=== PATIENT | female | born 2000 | race Two or more races ===

== ENCOUNTER 2023-06-13 22:16 | Emergency (ER) | payer SELFPAY ==
[2023-06-13 22:21] VITALS: BP 135/84; PULSE 76; TEMP 36.7; O2SAT 99; BMI 30.9
--- NOTE | 2023-06-13 22:43 | ED.GENADUL1 ---
HPI HPI - General Adult General Chief complaint: OB/Uterine Contractions Stated complaint: 6WEEKS , POSS MISCARRIAGE Time Seen by Provider: 06/13/23 22:36 Source: patient Mode of arrival: walk-in History of Present Illness HPI narrative: patient presents complaining that she is but believes she is going to have a miscarriage states LMP late mar. state she did a home test that was positive. She redid the test and now it is neg. She has some nausea. No vaginal bleeding. no fever or urinary symptoms Related Data Allergies Allergy/AdvReac Type Severity Reaction Status Date / Time No Known Drug Allergies Allergy Verified 06/13/23 22:24 Opioid HPI Opioid Management Most Recent Opioid Data: No Data to Display Review of Systems ROS Status of ROS 10 or more systems reviewed and unremarkable except as noted in history and below Exam Constitutional Vital Signs, click to edit/add: Last Vital Signs Temp 98.1 F 06/13/23 22:21 Pulse 76 06/13/23 22:21 Resp 16 06/13/23 22:21 BP 135/84 06/13/23 22:21 Pulse Ox 99 06/13/23 22:21 O2 Del Method Room Air 06/13/23 22:30 Common normals: no apparent distress, average body habitus, oriented x3, no limitations, healthy appearing, alert and well nourished [facility] Common normals: normocephalic and head/scalp atraumatic Eye Common normals: PERRL and EOMs intact bilaterally Respiratory Common normals: normal respiratory effort, no retractions, no use of accessory muscles and clear to auscultation bilaterally Cardio Common normals: regular rate, regular rhythm, S1 normal heart sound and S2 normal heart sound GI Common normals: Normal to inspection, nondistended, normoactive bowel sounds present, soft to palpation and non-tender Extremity Common normals: normal to inspection and full ROM Neuro Common normals: oriented x3, CN's II-XII intact bilaterally and moves all extremities Psych Appearance: grossly normal Course Vital Signs Vital signs: Vital Signs Temperature 98.1 F 06/13/23 22:21 Pulse Rate 76 06/13/23 22:21 Respiratory Rate 16 06/13/23 22:21 Blood Pressure 135/84 06/13/23 22:21 Pulse Oximetry 99 06/13/23 22:21 Oxygen Delivery Method Room Air 06/13/23 22:21 Temperature 98.1 F 06/13/23 22:21 Pulse Rate 76 06/13/23 22:21 Respiratory Rate 16 06/13/23 22:21 Blood Pressure 135/84 06/13/23 22:21 Pulse Oximetry 99 06/13/23 22:21 Oxygen Delivery Method Room Air 06/13/23 22:30 Medical Decision Making MDM Narrative Medical decision making narrative: patient presents concerned she may be about to have a miscarriage. She did one home test a few weeks ago that was positive and a repeat test today neg. Denies vaginal bleeding. LMP late mar. No symptoms now. Urine preg here neg and UA with evidence of dehydration. Patient informed of the neg test and discharged home. Advised to increase fluid intake Lab Data Labs: Lab Results 06/13/23 Range/Units 22:26 Urine Color Yellow (YELLOW) Urine Clarity Clear (CLEAR) Urine pH 5.5 (5.0-9.0) Ur Specific [place] >=1.030 A (1.005-1.025) Urine Protein Negative (NEG/TRACE) mg/dL Urine Glucose (UA) Negative (NEGATIVE) mg/dL Urine Ketones Trace A (NEGATIVE) mg/dL Urine Occult Blood Trace-i (NEGATIVE) Urine Nitrite Negative (NEGATIVE) Urine Bilirubin Negative (NEGATIVE) Urine Urobilinogen 1.0 (0.2-1.0) EU/dL Ur Leukocyte Esterase Negative (NEGATIVE) Urine RBC 0-2 (0-2) #/HPF Urine WBC 2-5 A (NONE SEEN) #/HPF Ur Squamous Epith Cells Few A (NONE/RARE) #/LPF Urine Crystals None seen (None Seen) #/HPF Urine Bacteria Trace A (NONE SEEN) #/HPF Urine Casts None seen (NONE SEEN) #/LPF Urine Mucus Moderate A (NONE SEEN) Ur Culture Indicated? No Urine HCG, Qual Negative (NEGATIVE) Discharge Plan Discharge Stand Alone Forms: Portal Instructions Chief Complaint: OB/Uterine Contractions Clinical Impression: Dehydration Patient Disposition: Home, Self-Care Print Language: [place] Instructions: Dehydration (ED) Additional Instructions: drink plenty of fluids and follow up with your doctor for recheck Referrals: Physician,Non-Staff, MD [Primary Care Provider] - 1 week
[2023-06-13 22:54] LABS: Bilirubin Urine NEGATIVE (NEGATIVE); Blood Urine TRACE-I (NEGATIVE); Clarity Urine CLEAR (CLEAR); Color Urine YELLOW (YELLOW); Glucose Urine UA NEGATIVE (NEGATIVE); Ketones Urine TRACE mg/dL (NEGATIVE); Leukocyte Esterase Urine NEGATIVE (NEGATIVE); Nitrite Urine NEGATIVE (NEGATIVE); Protein Urine NEGATIVE (NEG/TRACE); Specific Gravity Urine >=1.030 (1.005-1.025); pH Urine 5.5 (5.0-9.0)
[2023-06-13 22:55] LABS: HCG Qualitative Urine* NEGATIVE (NEGATIVE); Urine Microscopic Indicated YES
[2023-06-13 23:03] LABS: Bacteria Urine TRACE #/HPF (NONE SEEN); RBC Urine 0-2 #/HPF (0-2)
[2023-06-13 23:04] LABS: Cast Seen? NONE SEEN #/LPF (NONE SEEN); Crystals Seen? None Seen #/HPF (None Seen); Mucus Urine MODERATE (NONE SEEN); Squamous Epithelial Cell Urine FEW #/LPF (NONE/RARE); Urine Culture Indicated NO
== END 2023-06-13 23:33 | disposition home or self-care (01) ==
PROVIDERS: Emergency Provider Internal Medicine
DX: E86.0 Dehydration (principal)
CPT/HCPCS: 81001; 84703; 99283

== ENCOUNTER 2023-06-14 13:05 | Outpatient (OUT) | payer SELFPAY ==
[2023-06-14 13:51] LABS: HCG Quantitative 2 mIU/mL
== END 2023-06-14 13:06 | disposition home or self-care (01) ==
PROVIDERS: Visit Provider Obstetrics & Gynecology
DX: N92.6 Irregular menstruation, unspecified (principal); O20.0 Threatened abortion
CPT/HCPCS: 36415; 84702

== ENCOUNTER 2023-08-19 12:34 | Outpatient (RCR) | payer BC, SELFPAY ==
[2023-08-19 14:07] LABS: HCG Quantitative 23 mIU/mL
[2023-08-20 13:16] LABS: HCG Quantitative 43 mIU/mL
== END 2023-09-11 23:59 | disposition home or self-care (01) ==
LOC: LAB 12:34
PROVIDERS: Visit Provider Obstetrics & Gynecology
DX: N92.6 Irregular menstruation, unspecified (principal); Z87.59 Personal history of other complications of pregnancy, childbirth and the puerperium
CPT/HCPCS: 36415; 84702

== ENCOUNTER 2023-08-23 12:46 | Outpatient (RCR) | payer BC, SELFPAY ==
--- OUTSIDE RECORDS SUMMARY | 2023-08-23 13:08 | XMS_ITS | CCD ---
Author Organization [facility] Team Providers Care Currency Examiner Name Role Phone NONE, XXXX Primary Care Physician Unavailab thee ROSALES, DR PLASENCIA Attending Unavailable BOBBY, DR PLASENCIA Consulting Unavailable DR ERINN ROSALES Admitting Unavailable JOSE, DR MACARENA Kim Consulting Unavailable ERINN ROSALES Attending Unavailable Unavailable Primary Care Provider UnavailELVA Caldera Attending Unavailable Love Palmer Attending Unavailable Love Palmer Admitting Unavailable Medications Current Medications Medication Drug Class(es) Dates Sig (Normalized) Sig (Original) citalopram 20 mg oral tablet (3 sources) Serotonin Reuptake Inhibitor Start: 03-12-2019 take 1 tablet by mouth once daily citalopram 20 mg Tab TAKE 1 TABLET BY MOUTH EVERY DAY Start Date: 03/12/19 Status: Ordered 21 day ethinyl estradiol 0.453355 mg/hr / etonogestrel 0.005 mg/hr vaginal system (2 sources) Progestin, Estrogen Start: 03-12-2019 Nuvaring 0.015 mg-0.120 mg Ring INSERT 1 RING VAGINALLY DIRECTED. REMOVE AFTER 3 WEEKS & WAIT 7 DAYS BEFORE INSERTING A NEW RING Start Date: 03/12/19 Status: Ordered ibuprofen 400 mg oral tablet (3 sources) Nonsteroidal Anti-inflammatory Drug Start: 07-26-2015 take 1 tablet by mouth every six hours as needed for pain ibuprofen 400 mg Tab 400 mg = 1 tab(s), Oral, q6hr, PRN as needed for pain, # 15 tab(s), Refills(s) 0 Start Date: 07/26/15 Status: Ordered naproxen 250 mg oral tablet (1 source) Nonsteroidal Anti-inflammatory Drug Start: 07-18-2023 End: 07-28-2023 take 2 tablets by mouth twice daily at mealtime naproxen (NAPROSYN) 250 MG tablet Take 2 tablets by mouth 2 times daily (with meals) for 10 days 40 tablet 0 07/18/2023 07/28/2023 Active Nuvaring 0.015 mg-0.120 mg Ring (1 source) Start: 03-12-2019 Nuvaring 0.015 mg-0.120 mg Ring INSERT 1 RING VAGINALLY DIRECTED. REMOVE AFTER 3 WEEKS & WAIT 7 DAYS BEFORE INSERTING A NEW RING Start Date: 03/12/19 Status: Ordered predniSONE 20 mg oral tablet (1 source) Start: 07-07-2022 End: 07-12-2022 take 2 tablets by mouth once daily predniSONE 20 mg Tab 40 mg = 2 tab(s), Oral, Daily, X 5 day(s), # 10 tab(s), Refills(s) 0, Pharmacy: [facility]/pharmacy #[id number], 160, cm, 07/07/22 9:38:00 EDT, Height/Length Dosing, 90, kg, 07/07/22 9:38:00 EDT, Weight Dosing Start Date: 07/07/22 Stop Date: 07/12/22 Status: Ordered valACYclovir 500 mg oral tablet (4 sources) Herpesvirus Nucleoside Analog DNA Polymerase Inhibitor, Herpes Simplex Virus Nucleoside Analog DNA Polymerase Inhibitor, Herpes Zoster Virus Nucleoside Analog DNA Polymerase Inhibitor Start: 03-12-2019 take 1 tablet by mouth once daily valacyclovir 500 mg Tab TAKE 1 TABLET BY MOUTH EVERY DAY Start Date: 03/12/19 Status: Ordered Completed/Discontinued Medications Medication Drug Class(es) Dates Sig (Normalized) Sig (Original) 1 ml ketorolac tromethamine 30 mg/ml cartridge (1 source) Nonsteroidal Anti-inflammatory Drug, Cyclooxygenase Inhibitor Start: 07-18-2023 End: 07-18-2023 ketorolac (TORADOL) injection 30 mg Problems Problem Classification Problem Date Documented Date Episodic/Chronic Anxiety disorders (3 sources) Anxiety 03-12-2019 Chronic Mood disorders (3 sources) Depression 05-25-2013 Chronic Other connective tissue disease (1 source) Enthesopathy; Translations: [Other enthesopathies, not elsewhere classified] Onset: 07-07-2022 Episodic Other connective tissue disease (1 source) Tenosynovitis of left radial styloid; Translations: [Radial styloid tenosynovitis [de Quervain]] 07-18-2023 Episodic Other connective tissue disease (1 source) Radial styloid tenosynovitis [de Quervain]; Translations: [Radial styloid tenosynovitis (de quervain)] Onset: 07-18-2023 Episodic Other endocrine disorders (4 sources) Polycystic ovarian syndrome; Translations: [POLYCYSTIC OVARIAN SYNDROME] Onset: 07-30-2021 Chronic Other infections; including parasitic (3 sources) H/O: viral illness 03-12-2019 Episodic Other nutritional; endocrine; and metabolic disorders (1 source) Obese class II; Translations: [Body mass index (BMI) 35.0-35.9, adult] Onset: 07-07-2022 Chronic Other screening for suspected conditions (not mental disorders or infectious disease) (3 sources) No current problems or disability 08-30-2013 Episodic Otitis media and related conditions (3 sources) Otitis media 03-12-2019 Episodic Results Test Name Value Interpretation Reference Range Facility PAP [id number] 07-19-2023 Cytology report Cyto stain Doc (Cvx/Vag) Note Invalid Interpretation Code [facility] Comment on above: Result Comment: TEST S RESULT FLAG UNITS REF RANGE LAB - Clinician Provided Cytology Information Source.............Endocervix No. of containers..01 ThinPrep Vial DIAGNOSIS: 01 NEGATIVE FOR INTRAEPITHELIAL LESION OR MALIGNANCY. Specimen adequacy: 01 Satisfactory for evaluation. Endocervical and/or squamous metaplastic cells (endocervical component) are present. Performed by: 01 Puneet Elise Plumber Cub (ASCP) . 01 Note: Note 01 The Pap smear is a screening test designed to aid in the detection of premalignant and malignant conditions of the uterine cervix. It is not a diagnostic procedure and should not be used as the sole means of detecting cervical cancer. Both false-positive and false-negative reports do occur. Test Methodology: Note 01 The Netechy(R) Mounting Inspector was unable to read this specimen. Therefore a manual review was performed. . 01 The HPV DNA reflex criteria were not met with this specimen result therefore, no HPV testing was performed. - FLAG LEGEND: L-Low Normal,H-High Normal,LL-Alert Low,HH-Alert High <-Panic Low,>-Panic High,A-Abnormal,AA-Critical Abnormal - Performed at: [facility] [id number] Luz Marina Swann MD, Performed at: [facility] [id number] MD Shree Raza Performed By: #### 3 [id number] #### [facility] [address] [place] [address] PAP [id number] 07-16-2023 Collection Technique BRUSH-SPATULA Normal [facility] Comment on above: Performed By: #### 3 [id number] #### [facility] [address] [place] [address] Gynecological Body Site ENDOCERVIX Normal [facility] Comment on above: Performed By: #### 3 [id number] #### [facility] [address] [place] [address] Physician Orderon 07-14-2023 Physician Order [id number] Normal [facility] DHEA SERUMon 08-11-2021 Dehydroepiandrosterone (DHEA) 339 ng/dL Normal 31-701 [facility] Comment on above: Result Comment: Age 1 - 5 years 0 - 67 6 - 7 years 0 - 110 8 - 10 years 0 - 185 11 - 12 years 0 - 201 13 - 14 years 0 - 318 15 - 16 years 39 - 481 17 - 19 years 40 - 491 >19 years 31 - 701 Performed By: #### D ZACH. #### [facility] [address] [place] [address] Dr. Austen Hernadez DHEA-SULFATEon 08-01-2021 DHEA-Sulfate 247.0 ug/dL Normal 110.0-431.7 [facility] Comment on above: Performed By: #### D DEANA #### [facility] [address] [place] [address] Dr. Austen Hernadez FSHon 08-01-2021 FSH 1.6 mIU/mL Normal [facility] Comment on above: Result Comment: Adul t Female: Follicular phase 3.5 - 12.5 Ovulation phase 4.7 - 21.5 Luteal phase 1.7 - 7.7 Postmenopausal 25.8 - 134.8 Performed By: #### L BCFSH #### [facility] [address] [place] [address] Dr. Austen Hernadez LUTEINIZING HORMONE (LH)on 0 - LH 2.6 mIU/mL Normal [facility] Comment on above: Result Comment: Adul t Female: Follicular phase 2.4 - 12.6 Ovulation phase 14.0 - 95.6 Luteal phase 1.0 - 11.4 Postmenopausal 7.7 - 58.5 Performed By: #### L BCLH #### [facility] [address] [place] [address] Dr. Austen Hernadez CBC AUTO DIFFon 07-30-2021 BASO # 0.0 103/ul Normal 0.0-0.1 [facility] Comment on above: Performed By: #### C BC #### [facility] [address] [place] [address] Dr. Austen Hernadez Basophils/100 WBC (Bld) 0.2 % Normal 0.2-2.0 [facility] Comment on above: Performed By: #### C BC #### [facility] [address] [place] [address] Dr. Austen Hernadez EO # 0.1 103/ul Normal 0.0-0.7 [facility] Comment on above: Performed By: #### C BC #### [facility] [address] [place] [address] Dr. Austen Hernadez Eosinophils/100 WBC (Bld) 1.2 % Normal 0.9-7.0 [facility] Comment on above: Performed By: #### C BC #### [facility] [address] [place] [address] Dr. Austen Hernadez Erythrocyte distribution width (RBC) [Ratio] 12.1 % Normal 11.0-15.0 [facility] Comment on above: Performed By: #### C BC #### [facility] [address] [place] [address] Dr. Austen Hernadez Hematocrit (Bld) [Volume fraction] 40.2 % Normal 36.0-48.0 [facility] Comment on above: Performed By: #### C BC #### [facility] [address] [place] [address] Dr. Austen Hernadez Hemoglobin (Bld) [Mass/Vol] 13.3 g/dL Normal 12.0-16.0 [facility] Comment on above: Performed By: #### C BC #### [facility] [address] [place] [address] Dr. Austen Hernadez IG # 0.04 10e3/ul Critically high 0.00-0.03 [facility] Comment on above: Performed By: #### C BC #### [facility] [address] [place] [address] Dr. Austen Hernadez IG % 0.5 % Normal 0.0-0.5 [facility] Comment on above: Performed By: #### C BC #### [facility] [address] [place] [address] Dr. Austen Hernadez LYMPH # 1.7 103/ul Normal 1.2-3.8 [facility] Comment on above: Performed By: #### C BC #### [facility] [address] [place] [address] Dr. Austen Hernadez Lymphocytes/100 WBC (Bld) 20.1 % Critically low 20.5-6 0.0 [facility] Comment on above: Performed By: #### C BC #### [facility] [address] [place] [address] Dr. Austen Hernadez MANUAL DIFF REQ NO Normal [facility] Comment on above: Performed By: #### C BC #### [facility] [address] [place] [address] Dr. Austen Hernadez MCH (RBC) [Entitic mass] 30.0 pg Normal 26.7-34.0 [facility] Comment on above: Performed By: #### C BC #### [facility] [address] [place] [address] Dr. Austen Hernadez MCHC (RBC) [Mass/Vol] 33.1 g/dL Normal 29.9-35.2 [facility] Comment on above: Performed By: #### C BC #### [facility] [address] [place] [address] Dr. Austen Hernadez MCV (RBC) [Entitic vol] 90.5 fL Normal 81.0-99.0 [facility] Comment on above: Performed By: #### C BC #### [facility] [address] [place] [address] Dr. Austen Hernadez MONO # 0.5 103/ul Normal 0.3-0.8 [facility] Comment on above: Performed By: #### C BC #### [facility] [address] [place] [address] Dr. Austen Hernadez Monocytes/100 WBC (Bld) 5.8 % Normal 1.7-12.0 [facility] Comment on above: Performed By: #### C BC #### [facility] [address] [place] [address] Dr. Austen Hernadez NEUT # 6.2 103/ul Normal 1.4-6.5 [facility] Comment on above: Performed By: #### C BC #### [facility] [address] [place] [address] Dr. Austen Hernadez Neutrophils/100 WBC (Bld) 72.2 % Normal 43.0-75.0 [facility] Comment on above: Performed By: #### C BC #### [facility] [address] [address] [address] Austen Hernadez Platelet mean volume (Bld) [Entitic vol] 8.2 fL Critically low 9.5-13.5 [facility] Comment on above: Performed By: #### C BC #### [facility] [address] [address] [address] Austen Hernadez PLT 350 103/ul Normal 150-450 [facility] Comment on above: Performed By: #### C BC #### [facility] [address] [address] [address] Austen Hernadez RBC 4.44 106/ul Normal 4.20-5.40 [facility] Comment on above: Performed By: #### C BC #### [facility] [address] [place] [address] Dr. Austen Hernadez WBC 8.6 103/ul Normal 4.0-11.0 [facility] Comment on above: Performed By: #### C BC #### [facility] [address] [place] [address] Dr. Austen Hernadez GLYCOHEMOGLOBIN A1Con 2021 ADA RECOMMENDATION SEE BELOW Normal [facility] Comment on above: Result Comment: ADA RECOMMENDED LIMIT 4.0 - 6.0 ADA THERAPEUTIC TARGET < 7.0 ACTION SUGGESTED > 7.0 Performed By: #### A 1C #### [facility] [address] [place] [address] Dr. Austen Hernadez Glucose [Mass/Vol] 108 mg/dL Normal [facility] Comment on above: Performed By: #### A 1C #### [facility] [address] [place] [address] Dr. Austen Hernadez HbA1c (Bld) [Mass fraction] 5.4 % Normal 4.5-6.2 [facility] Comment on above: Performed By: #### A 1C #### [facility] [address] [place] [address] Dr. Austen Hernadez TSHon 07-30-2021 TSH 1.365 uIU/mL Normal 0.358-3.740 [facility] Comment on above: Performed By: #### T #### [facility] [address] [place] [address] Dr. Austen Hernadez TSH RANGE SEE BELOW Normal [facility] Comment on above: Result Comment: <0.3 4 UIU/ml HYPERTHYROID 0.34-5.60 UIU/ml EUTHYROID >5.60 UIU/ml HYPOTHYROID Performed By: #### T #### [facility] [address] [place] [address] Dr. uAsten Hernadez US PELVIS AND TRANSVAGon US PELVIS AND TRANSVAG EXAMINATION: US PELVIS AND TRANSVAG HISTORY: Polycystic ovary syndrome COMPARISON: No relevant comparison available. TECHNIQUE: Transabdominal and transvaginal sonographic examination. FINDINGS: UTERUS: Normal size and appearance. Uterus size: 8.0 x 4.4 x 3.5 cm ENDOMETRIUM: Normal homogeneous appearance. Endometrial thickness: 5 mm RIGHT OVARY: Normal size and appearance. Duplex Doppler demonstrates normal waveform and flow; resistive index 0.62. Ovary size: 3.2 x 1.7 x 1.5 cm LEFT OVARY: Normal size and appearance. Duplex Doppler demonstrates normal waveform and flow; resistive index 0.52. Ovary size: 2.8 x 2.4 x 1.8 cm CUL-DE-SAC: Unremarkable. No significant free fluid. BLADDER: Unremarkable. OTHER: None. IMPRESSION: 1. Normal appearance of ovaries. No findings to suggest polycystic ovarian syndrome. Electronically authenticated by: MACARENA GARCIA Date: 2021-07-30 15:31 Normal [facility] Vital Signs Date Time Vital Sign Value Performing Clinician Facility 07-18-2023 00:06-0400 Body height 160 cm Elva Servin MD Work Phone: [facility] 07-18-2023 00:06-0400 Body mass index (BMI) [Ratio] 30.11 kg/m2 Elva Servin MD Work Phone: [facility] 07-18-2023 00:06-0400 Body temperature 98.29 [degF] Elva Servin MD Work Phone: [facility] 07-18-2023 00:06-0400 Body weight 77.11 kg Elva Servin MD Work Phone: [facility] 07-18-2023 00:06-0400 Diastolic blood pressure 79 mm[Hg] Elva Servin MD Work Phone: [facility] 07-18-2023 00:06-0400 Heart rate 61 /min Elva Servin MD Work Phone: [facility] 07-18-2023 00:06-0400 Respiratory rate 16 /min Elva Servin MD Work Phone: [facility] 07-18-2023 00:06-0400 SaO2% (BldA) [Mass fraction] 96 % Elva Servin MD Work Phone: [facility] 07-18-2023 00:06-0400 Systolic blood pressure 132 mm[Hg] Elva Servin MD Work Phone: [facility] 07-07-2022 09:35-0400 Diastolic blood pressure 60 mm[Hg] Chris Banegas [facility] 07-07-2022 09:35-0400 Heart rate 83 /min Chris Banegas [facility] 07-07-2022 09:35-0400 SaO2% (BldA) [Mass fraction] 97 % Chris Banegas [facility] 07-07-2022 09:35-0400 Systolic blood pressure 100 mm[Hg] Chris Banegas [facility] Encounters Encounter Date Encounter Type Care Provider Facility Start: 07-18-2023 End: 07-18-2023 Emergency department patient visit ELVADAVID SERVIN [facility] Start: 07-18-2023 End: 07-18-2023 Emergency department patient visit Elva Servin MD Work Phone: [facility] ED Comment on above: Mai's tenosy novitis, left (Primary Dx) Start: 07-14-2023 End: 07-15-2023 ambulatory Love Palmer Facility:[facility] Start: 07-14-2023 End: 07-14-2023 Lab Drop off Love Palmer [facility] Start: 06-15-2023 End: 06-15-2023 ambulatory ERINN ROSALES Not Available Start: 07-07-2022 End: 07-07-2022 Patient encounter procedure Chris Banegas [facility] Start: 07-30-2021 End: 07-31-[address] ERINN ROSALES Facility: Start: 07-15-2021 End: 07-15-2021 Lab Drop off Love Palmer [facility] Plan of Treatment Date Care Activity Detail Author Start: 10-13-2023 Influenza vaccination Flu vacc ine (Season Ended) [facility] Start: 2017 DTaP/Tdap/Td vaccine (1 - Tdap) DTaP/Tdap/Td vaccine (1 - Tdap) [facility] Start: 06-10-1999 COVID-19 Vaccine (#1) COVID-19 Vacci ne (#1) [facility] Payers Date Payer Category Payer Unknown [id number] 2023 Unknown 1998 Unknown [id number] 1998 Unknown [id number] 1998 Unknown [id number] 1998 Unknown [id number] 1959 Unknown [id number] Social History Date Type Detail Facility Start: 10-24-2020 End: 07-18-2023 Tobacco smoking status Never smoked tobacco (finding) [facility] Tobacco smoking status Never [facility] Start: 07-01-2012 Sex Assigned At Female F [facility] Start: 07-18-2023 Tobacco use and exposure Smokeless tobacco non-user [facility] Start: 07-18-2023 Alcohol intake Ex-drinker (finding) [facility] Start: 07-01-2012 History of Social function [facility] Start: 1998 Sex Assigned At Not on file B [facility] Functional Status Date Assessment Result Facility 07-07-2022 Functional Status N/A [facility] Hospital Discharge instructions 07-18-2023 Discharge InstructionsAttachments Note Date & Type Note Facility 07-18-2023 Hospital Discharg e instructions Elva Servin MD - 07/18/2023 12:09 AM EDT You were evaluated in the emergency department for having a wrist injury that progressed to difficulty with closing of your hands. After thorough physical evaluation you were discovered to have a tenosynovitis. Whether this is de Quervain's tenosynovitis or pure wrist tenosynovitis that is unclear given the injury pattern however regardless of what it is, the wrist splint in addition with the naproxen should help significantly. Please follow-up with your primary care physician to ensure there is good continuity of care. The following attachments cannot be sent through Care Everywhere.Tenosynovitis: Wrist (Dutch)documented in this encounter [facility] Discharge instructions 07-07-2022 Note Date & Type Note Facility 07-07-2022 Hospital Discharg e instructions Patient Education 07/07/2022 10:03:07 BMI for Adults BMI for Adults What is BMI? Body mass index (BMI) is a number that is calculated from a person's weight and height. BMI can help estimate how much of a person's weight is composed of fat. BMI does not measure body fat directly. Rather, it is an alternative to procedures that directly measure body fat, which can be difficult and expensive. BMI can help identify people who may be at higher risk for certain medical problems. What are BMI measurements used for? BMI is used as a screening tool to identify possible weight problems. It helps determine whether a person is obese, overweight, a healthy weight, or underweight. BMI is useful for: Identifying a weight problem that may be related to a medical condition or may increase the risk for medical problems. Promoting changes, such as changes in diet and exercise, to help reach a healthy weight. BMI screening can be repeated to see if these changes are working. How is BMI calculated? BMI involves measuring your weight in relation to your height. Both height and weight are measured, and the BMI is calculated from those numbers. This can be done either in [place] or metric measurements. Note that charts and online BMI calculators are available to help you find your BMI quickly and easily without having to do these calculations yourself. To calculate your BMI in [place] ([place] measurements: 1.Measure your weight in pounds (lb). 2.Multiply the number of pounds by 703. For example, for a person who weighs 180 lb, multiply that number by 703, which equals 126,540. 3.Measure your height in inches. Then multiply that number by itself to get a measurement called inches squared. For example, for a person who is 70 inches tall, the inches squared measurement is 70 inches x 70 inches, which equals 4,900 inches squared. 4.Divide the total from step 2 (number of lb x 703) by the total from step 3 (inches squared): 126,540 4,900 = 25.8. This is your BMI. To calculate your BMI in metric measurements: 1.Measure your weight in kilograms (kg). 2.Measure your height in meters (m). Then multiply that number by itself to get a measurement called meters squared. For example, for a person who is 1.75 m tall, the meters squared measurement is 1.75 m x 1.75 m, which is equal to 3.1 meters squared. 3.Divide the number of kilograms (your weight) by the meters squared number. In this example: 70 3.1 = 22.6. This is your BMI. What do the results mean? BMI charts are used to identify whether you are underweight, normal weight, overweight, or obese. The following guidelines will be used: Underweight: BMI less than 18.5. Normal weight: BMI between 18.5 and 24.9. Overweight: BMI between 25 and 29.9. Obese: BMI of 30 or above. Keep these notes in mind: Weight includes both fat and muscle, so someone with a muscular build, such as an athlete, may have a BMI that is higher than 24.9. In cases like these, BMI is not an accurate measure of body fat. To determine if excess body fat is the cause of a BMI of 25 or higher, further assessments may need to be done by a health care provider. BMI is usually interpreted in the same way for men and women. Where to find more information For more information about BMI, including tools to quickly calculate your BMI, go to these websites: Centers for Disease Control and Prevention: www.cdc.gov [place] [employer]: www.heart.org National Heart, Lung, and Blood [place]: www.nhlbi.nih.gov Summary Body mass index (BMI) is a number that is calculated from a person's weight and height. BMI may help estimate how much of a person's weight is composed of fat. BMI can help identify those who may be at higher risk for certain medical problems. BMI can be measured using Dutch measurements or metric measurements. BMI charts are used to identify whether you are underweight, normal weight, overweight, or obese. This information is not intended to replace advice given to you by your health care provider. Make sure you discuss any questions you have with your health care provider. Document Revised: 11/21/2019 Document Reviewed: 09/28/2019 [employer] Patient Education 2022 [employer]. 07/07/2022 10:02:02 Tendinitis, [id number] Tendinitis Tendinitis is irritation and swelling (inflammation) of a tendon. A tendon is a cord of tissue that connects muscle to bone. Tendinitis is most common in the shoulder, ankle, elbow, or wrist. What are the causes? Using a tendon or muscle too much (overuse). This is the most common cause. Wear and tear that happens as you age. Injury. Some medical conditions, such as arthritis. Some medicines. What increases the risk? You are more likely to get this condition if you do activities that involve the same movements over and over again (repetitive motions). What are the signs or symptoms? Pain. Tenderness. Mild swelling. Decreased range of motion. How is this treated? This condition is usually treated with RICE therapy. RICE stands for: Rest. Ice. Compression. This means putting pressure on the affected area. Elevation. This means raising the affected area above the level of your heart. Treatment may also include: Medicines for swelling or pain. Exercises or physical therapy to help your tendon move better and get stronger. A brace or splint. A shot (injection) of a type of medicine called corticosteroid. Surgery. This is rarely needed. Follow these instructions at home: If you have a splint or brace that can be taken off: Wear the splint or brace as told by your doctor. Take it off only as told by your doctor. Check the skin around the splint or brace every day. Tell your doctor if you see problems. Loosen the splint or brace if your fingers or toes: ?Tingle. ?Become numb. ?Turn cold and blue. Keep the splint or brace clean. If the splint or brace is not waterproof: ?Do not let it get wet. ?Cover it with a watertight covering when you take a bath or shower, or take it off as told by your doctor. Managing pain, stiffness, and swelling If told, put ice on the affected area. To do this: ?If you have a removable splint or brace, take it off as told by your doctor. ?Put ice in a plastic bag. ?Place a towel between your skin and the bag. ?Leave the ice on for 20 minutes, 2 3 times a day. ?Take off the ice if your skin turns bright red. This is very important. If you cannot feel pain, heat, or cold, you have a greater risk of damage to the area. Move the fingers or toes of the affected arm or leg often, if this applies. If told, raise the affected area above the level of your heart while you are sitting or lying down. If told, put heat on the affected area before you exercise. Use the heat source that your doctor recommends, such as a moist heat pack or a heating pad. ?Place a towel between your skin and the heat source. ?Leave the heat on for 20 30 minutes. ?Take off the heat if your skin turns bright red. This is very important. If you cannot feel pain, heat, or cold, you have a greater risk of getting burned. Activity Rest the affected area as told by your doctor. Ask your doctor when it is safe to drive if you have a splint or brace on any part of your arm or leg. Return to your normal activities when your doctor says that it is safe. Avoid using the affected area while you have symptoms. Do exercises as told by your doctor. General instructions Wear an elastic bandage or pressure (compression) wrap only as told by your doctor. Take [id number] and prescription medicines only as told by your doctor. Keep all follow-up visits. Contact a doctor if: You do not get better. You get new problems, such as numbness in your hands or feet, and you do not know why. Summary Tendinitis is irritation and swelling (inflammation) of a tendon. You are more likely to get this condition if you do activities that involve the same movements over and over again. This condition is usually treated with RICE therapy. RICE stands for rest, ice, compression, and elevate. Avoid using the affected area while you have symptoms. This information is not intended to replace advice given to you by your health care provider. Make sure you discuss any questions you have with your health care provider. Document Revised: 11/05/2021 Document Reviewed: 11/05/2021 [employer] Patient Education 2022 [employer]. Follow Up Care 07/07/2022 09:19:19 With:NONE, XXXX Address: [phone] When: Unknown [facility] Evaluation + Plan note 07-15-2021 Note Date & Type Note Facility 07-15-2021 Evaluation + Plan note Diagnostic Tests PendingChlamydia/Gonococcu s, KESHIA 07/15/21 [facility] Evaluation + Plan note Note Date & Type Note Facility Evaluation + Plan note [facility] Evaluation note Note Date & Type Note Facility Evaluation note Diagnosis De Quervain's tenosynovitis, left- Primary Radial styloid tenosynovitis documented in this encounter [facility] course Narrative Note Date & Type Note Facility Hospital course Narrative No data available for this section [facility] Hospital Discharge instructions Note Date & Type Note Facility Hospital Discharge instructions No data available for this section [facility] Progress note Note Date & Type Note Facility Progress note No data available for this section [facility] Reason for referral (narrative) Note Date & Type Note Facility Reason for referral (narrative) Referred by: Chris Banegas PA-C [facility] Summary Purpose Family History No Family History Records FoundNo Family History Records Found No data available for this section No Family History Records FoundNo Family History Records Found Advance Directives No Advanced Directives Records FoundNo Advanced Directives Records FoundNo Advanced Directives Records FoundNo Advanced Directives Records Found Additional Source Comments INFORMATION SOURCE (unrecogn ized section and content) DATE CREATED AUTHOR [facility]/12/2021 [facility] DATE CREATED AUTHOR AUTHOR'S ORGANIZ ATION 06/16/2023 [facility] EPIC DATE CREATED AUTHOR AUTHOR'S ORGANIZ ATION 07/18/2023 [facility] DATE CREATED AUTHOR AUTHOR'S ORGANIZ ATION 07/20/2023 [facility] Reason for Visit (unrecogniz ed section and content) Reason Comments Wrist Injury Patient arrived to E with complaints of left wrist injury. 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 had issues with her left wrist prior to incident. Ordered Prescriptions (unrec ognized section and content) Prescription Sig Dispensed Refills Start Date End Da te naproxen (NAPROSYN) 250 MG tablet Take 2 tablets by mouth 2 times daily (with meals) for 10 days 40 tablet 0 07/18/2023 07/28/2023 Scheduled Active and Recently Administ ered Medications (unrecognized section and content) Medication Order 07/16/2023 07/17/2023 07/18/2023 ketorolac (TORADOL) injection 30 mg (COMPLETED) 30 mg, IntraMUSCular, ONCE, 1 dose, On Tue07/18/23 at 0015, Do not administer for more than 5 days. 0023 (Given - Provid er: Gabriela Mcdermott RN) FOR RECORDS PERTAINING TO PATIENTS WHO ARE OR HAVE BEEN ENROLLED IN A CHEMICAL DEPENDENCY/SUBSTANCEABUSE PROGRAM, SOME INFORMATION MAY BE OMITTED. This clinical summary was aggregated from multiple sources. Caution should be exercised in using it in the provision of clinical care. This summary normalizes information from multiple sources, and as a consequence, information in this document may materially change the coding, format and clinical context of patient data. In addition, data may be omitted in some cases. CLINICAL DECISIONS SHOULD BE BASED ON THE PRIMARY CLINICAL RECORDS. [employer] provides no warranty or guarantee of the accuracy or completeness of information in this document.
[2023-08-23 13:36] LABS: HCG Quantitative 262 mIU/mL
== END 2023-09-11 23:59 | disposition home or self-care (01) ==
LOC: LAB 12:46
PROVIDERS: Visit Provider Obstetrics & Gynecology
DX: N92.6 Irregular menstruation, unspecified (principal); Z87.59 Personal history of other complications of pregnancy, childbirth and the puerperium
CPT/HCPCS: 36415; 84702

== ENCOUNTER 2023-09-12 13:31 | Outpatient (RCR) | payer BC, SELFPAY ==
[2023-09-12 14:44] LABS: HCG Quantitative 85104 mIU/mL
== END 2023-10-12 08:22 | disposition home or self-care (01) ==
LOC: LAB 13:31
PROVIDERS: Visit Provider Obstetrics & Gynecology
DX: N92.6 Irregular menstruation, unspecified (principal)
CPT/HCPCS: 36415; 84702

== ENCOUNTER 2023-09-12 14:19 | Outpatient (OUT) | payer BC, SELFPAY ==
--- NOTE | 2023-09-12 14:21 | US_ITS ---
[facility] [place] [id number] Patient Name: SEBASTIAN ORELLANA MRN: [id number] date: 2000 Sex: F Assigned Patient Location: [facility] Current Patient Location: [facility] Accession/Order Number: [id number] Exam Date: 09/12/2023 14:22 Report Date: 09/12/2023 16:26 At the request of: ERINN ROSALES Procedure: US OB transvaginal EXAMINATION: US OB transvaginal HISTORY: VIABILITY , cramping COMPARISON: No relevant comparison available. FINDINGS: GESTATIONAL SAC: Present and normal appearing. YOLK SAC: Present and normal appearing. POLE: Present and normal appearing. CARDIAC: Present. UTERUS: Normal size and appearance. OVARIES: Right: Normal. Left: Corpus lutein cyst. CERVIX: 4.1 cm in length and closed. CUL-DE-SAC: Normal. OTHER: 1.4 x 1.4 x 1.2 cm rounded heterogeneous hyperechoic structure within the gestational sac between the gestational sac wall and pole. AGE BY LMP: 6 weeks 2 days MIKE BY LMP: 05/05/2024 AGE BY US CRL: 7 weeks 0 days MIKE BY US CRL: 04/30/2024 US/US OB transvaginal IMPRESSION: 1. Single live intrauterine . 2. Nonspecific soft tissue structure which appears to be between the pole and gestational sac wall; mass versus clotted blood products? Follow-up recommended. 3. No findings at this time to suggest impending . Electronically authenticated by: MACARENA GARCIA Date: 09/12/2023 16:26
== END 2023-09-12 14:20 | disposition home or self-care (01) ==
LOC: NOMS 14:19
PROVIDERS: Visit Provider Obstetrics & Gynecology
DX: Z34.91 Encounter for supervision of normal pregnancy, unspecified, first trimester (principal); Z3A.01 Less than 8 weeks gestation of pregnancy; N92.6 Irregular menstruation, unspecified
CPT/HCPCS: 36415; 76817; 84702

== ENCOUNTER 2023-09-29 13:54 | Outpatient (OUT) | payer BC, SELFPAY ==
--- NOTE | 2023-09-29 13:56 | US_ITS ---
[address] [address] Patient Name: SEBASTIAN ORELLANA MRN: [id number] date: 2000 Sex: F Assigned Patient Location: [facility] Current Patient Location: [facility] Accession/Order Number: [id number] Exam Date: 09/29/2023 13:56 Report Date: 09/29/2023 14:54 At the request of: ERINN ROSALES Procedure: US OB transvaginal EXAMINATION: US OB transvaginal HISTORY: FOLLOW UP SOFT TISSUE MASS COMPARISON: Ultrasound OB transvaginal 09/12/2023 FINDINGS: GESTATIONAL SAC: Present and normal appearing. YOLK SAC: Present and normal appearing. POLE: Present and normal appearing. CARDIAC: Present. UTERUS: Normal size and appearance. OVARIES: Right: Normal. Left: Normal. CERVIX: 4.1 cm in length and closed. CUL-DE-SAC: Normal. OTHER: None. AGE BY LMP: 8 weeks 5 days MIKE BY LMP: 05/05/2024 AGE BY US CRL: 9 weeks 5 days MIKE BY US CRL: 04/28/2024 US/US OB transvaginal IMPRESSION: 1. Single live intrauterine . 2. Previously seen nonspecific soft tissue structure within gestational sac is no longer present. Electronically authenticated by: MACARENA GARCIA Date: 09/29/2023 14:54
== END 2023-09-29 13:55 | disposition home or self-care (01) ==
LOC: NOMS 13:54
PROVIDERS: Visit Provider Obstetrics & Gynecology
DX: O36.80X0 Pregnancy with inconclusive fetal viability, not applicable or unspecified (principal); Z3A.09 9 weeks gestation of pregnancy
CPT/HCPCS: 76817

== ENCOUNTER 2023-10-06 12:32 | Outpatient (OUT) | payer BC, SELFPAY ==
--- OUTSIDE RECORDS SUMMARY | 2023-10-06 12:40 | XMS_ITS | CCD ---
Author Organization [facility] Care Team Providers Care Water Tender Name Role Phone NONE, XXXX Primary Care Physician Unavailab DR ERINN Spaulding Attending Unavailable HITESH, DR PLASENCIA Consulting Unavailable DR ERINN PROCTOR Admitting Unavailable DR MACARENA GARCIA Consulting Unavailable Unavailable Primary Care Provider UnavailELVA Caldera Attending Unavailable DO Rodrigo Berg Attending Unavailable Love Palmer Attending Unavailable Love Palmer Admitting Unavailable DO Rodrigo Berg Attending Unavailable ERINN PROCTOR Attending Unavailable Medications Current Medications Medication Drug Class(es) Dates Sig (Normalized) Sig (Original) cephalexin 500 mg oral capsule (1 source) Cephalosporin Antibacterial Start: 09-22-2023 End: 09-27-2023 take 1 capsule by mouth every twelve hours Keflex 500 mg Cap 500 mg = 1 cap(s), Oral, q12hr, X 5 day(s), # 10 cap(s), Refills(s) 0, Pharmacy: [facility]/pharmacy #[id number], 160, cm, 09/22/23 5:34:00 EDT, Height/Length Dosing, 72.4, kg, 09/22/23 5:34:00 EDT, Weight Dosing Start Date: 09/22/23 Stop Date: 09/27/23 Status: Ordered citalopram 20 mg oral tablet (4 sources) Serotonin Reuptake Inhibitor Start: 03-12-2019 take 1 tablet by mouth once daily citalopram 20 mg Tab TAKE 1 TABLET BY MOUTH EVERY DAY Start Date: 03/12/19 Status: Ordered 21 day ethinyl estradiol 0.478553 mg/hr / etonogestrel 0.005 mg/hr vaginal system (3 sources) Progestin, Estrogen Start: 03-12-2019 Nuvaring 0.015 mg-0.120 mg Ring INSERT 1 RING VAGINALLY DIRECTED. REMOVE AFTER 3 WEEKS & WAIT 7 DAYS BEFORE INSERTING A NEW RING Start Date: 03/12/19 Status: Ordered ibuprofen 400 mg oral tablet (4 sources) Nonsteroidal Anti-inflammatory Drug Start: 07-26-2015 take [...] day(s), # 10 tab(s), Refills(s) 0, Pharmacy: [facility]/pharmacy #[id number], 160, cm, 07/07/22 9:38:00 EDT, Height/Length Dosing, 90, kg, 07/07/22 9:38:00 EDT, Weight Dosing Start Date: 07/07/22 Stop Date: 07/12/22 Status: Ordered promethazine hydrochloride 12.5 mg oral tablet (1 source) Phenothiazine Start: 09-22-2023 take 1 tablet by mouth every eight hours as needed for nausea promethazine 12.5 mg oral tablet 12.5 mg = 1 tab(s), Oral, q8hr, PRN as needed for nausea/vomiting, # 12 tab(s), Refills(s) 0, Pharmacy: [facility]/pharmacy #[id number], 160, cm, 09/22/23 5:34:00 EDT, Height/Length Dosing, 72.4, kg, 09/22/23 5:34:00 EDT, Weight Dosing Start Date: 09/22/23 Status: Ordered valACYclovir 500 mg oral tablet (5 sources) Herpesvirus Nucleoside Analog DNA Polymerase Inhibitor, [...] Problem Date Documented Date Episodic/Chronic Anxiety disorders (4 sources) Anxiety 03-12-2019 Chronic Genitourinary symptoms and ill-defined conditions (1 source) Bacteriuria; Translations: [Bacteriuria] Onset: 09-22-2023 Episodic Mood disorders (4 sources) Depression 05-25-2013 Chronic Other complications of (1 source) Vomiting of ; Translations: [Vomiting of , unspecified] Onset: 09-22-2023 Episodic Other complications of (1 source) Complication of , childbirth and/or the puerperium; Translations: [Other specified diseases and conditions complicating ] Onset: 09-22-2023 Episodic Other connective tissue disease (1 source) Enthesopathy; [...] Onset: 07-30-2021 Chronic Other infections; including parasitic (4 sources) H/O: viral illness 03-12-2019 Episodic Other nutritional; endocrine; and metabolic disorders (1 source) Obese class II; Translations: [Body mass index (BMI) 35.0-35.9, adult] Onset: 07-07-2022 Chronic Other screening for suspected conditions (not mental disorders or infectious disease) (4 sources) No current problems or disability 08-30-2013 Episodic Otitis media and related conditions (4 sources) Otitis media 03-12-2019 Episodic Results Test Name Value Interpretation Reference Range Facility C Urineon 09-24-2023 Bacteria identified Cx Nom (U) Microbiology PROCEDURE: Urine Culture [R1] SOURCE: U CleanCatch BODY SITE: COLLECTED DATE/TIME: 09/22/2023 05:47 EDT RECEIVED DATE/TIME: 09/22/2023 08:16 EDT START DATE/TIME: 09/22/2023 08:16 EDT FREE TEXT SOURCE: Rodrigo Berg DO, DO, Noah S. FINAL REPORTS Final Report [] Verified Date/Time: 09/24/2023 09:48 EDT <10,000 cfu/ml Mixed skin contaminants Performing Locations R1: This test was performed at: [facility], [address] [place] [address], [phone]- , , [facility] Comment on above: Performed By: #### 2 [id number] #### [facility] [address] [place] [address] BMPon 09-22-2023 Anion gap [Moles/Vol] 13 mmol/L Normal 6-16 [facility] Comment on above: Performed By: #### 2 [id number] #### [facility] [address] [place] [address] Calcium [Mass/Vol] 8.9 mg/dL Normal 8.9-11.1 [facility] Comment on above: Performed By: #### 2 [id number] #### [facility] [address] [place] [address] Chloride [Moles/Vol] 103 mmol/L Normal 101-111 [facility] Comment on above: Performed By: #### 2 [id number] #### [facility] [address] [place] [address] CO2 [Moles/Vol] 21 mmol/L Normal 21-31 [facility] Comment on above: Performed By: #### 2 [id number] #### [facility] [address] [place] [address] Creatinine [Mass/Vol] 0.6 mg/dL Normal 0.5-1.3 [facility] Comment on above: Performed By: #### 2 [id number] #### [facility] [address] [place] [address] Glucose [Mass/Vol] 89 mg/dL Normal 55-199 [facility] Comment on above: Performed By: #### 2 [id number] #### [facility] [address] [place] [address] Potassium [Moles/Vol] 3.5 mmol/L Normal 3.5-5.3 [facility] Comment on above: Performed By: #### 2 [id number] #### [facility] [address] [place] [address] Sodium [Moles/Vol] 133 mmol/L Low 135-145 [facility] Comment on above: Performed By: #### 2 [id number] #### [facility] [address] [place] [address] Urea nitrogen [Mass/Vol] 5 mg/dL Normal 5-21 [facility] Comment on above: Performed By: #### 2 [id number] #### [facility] [address] [place] [address] Urea nitrogen/Creatinine [Mass ratio] 8 No Units Low 10-20 [facility] Comment on above: Performed By: #### 2 [id number] #### [facility] [address] [place] [address] CBC w/ Auto Diffon 4 Basophils/100 WBC (Bld) 0.2 % Normal 0.0-2.0 [facility] Comment on above: Performed By: #### 2 [id number] #### [facility] [address] [place] [address] Basophils/Leukocytes Auto (Bld) [Pure # fraction] 0.0 E9/L Normal 0.0-0.2 [facility] Comment on above: Performed By: #### 2 [id number] #### [facility] [address] [place] [address] Eosinophils (Bld) [#/Vol] 0.1 E9/L Normal 0.0-0.5 [facility] Comment on above: Performed By: #### 2 [id number] #### [facility] [address] [place] [address] Eosinophils/100 WBC (Bld) 0.7 % Normal 0.0-8.0 [facility] Comment on above: Performed By: #### 2 [id number] #### [facility] [address] [place] [address] Erythrocyte distribution width (RBC) [Ratio] 13.1 % Normal 10.9-14.2 [facility] Comment on above: Performed By: #### 2 [id number] #### [facility] [address] [place] [address] Hematocrit (Bld) [Volume fraction] 39.9 % Normal 34.0-46.0 [facility] Comment on above: Performed By: #### 2 [id number] #### [facility] [address] [place] [address] Hemoglobin (Bld) [Mass/Vol] 14.0 g/dL Normal 12.0-16.0 [facility] Comment on above: Performed By: #### 2 [id number] #### [facility] [address] [place] [address] Lymphocytes (Bld) [#/Vol] 1.8 E9/L Normal 1.0-4.0 [facility] Comment on above: Performed By: #### 2 [id number] #### [facility] [address] [place] [address] Lymphocytes/100 WBC (Bld) 18.5 % Normal 14.0-50.0 [facility] Comment on above: Performed By: #### 2 [id number] #### [facility] [address] [place] [address] MCH (RBC) [Entitic mass] 31.9 pg Normal 27.0-34.0 [facility] Comment on above: Performed By: #### 2 [id number] #### [facility] [address] [place] [address] MCHC (RBC) [Mass/Vol] 35.2 g/dL Normal 31.4-36.[address] [facility] Comment on above: Performed By: #### 2 [id number] #### [facility] [address] [place] [address] MCV (RBC) [Entitic vol] 90.5 fL Normal 80.0-100.0 [facility] Comment on above: Performed By: #### 2 [id number] #### [facility] [address] [place] [address] Monocytes (Bld) [#/Vol] 0.5 E9/L Normal 0.2-1.0 [facility] Comment on above: Performed By: #### 2 [id number] #### [facility] [address] [place] [address] Neutrophils (Bld) [#/Vol] 7.3 E9/L Normal 2.0-7.5 [facility] Comment on above: Performed By: #### 2 [id number] #### [facility] [address] [place] [address] Neutrophils/100 WBC (Bld) 75.5 % High 36.0-75.0 [facility] Comment on above: Performed By: #### 2 [id number] #### [facility] [address] [place] [address] Platelet 415.0 E9/L Normal 150.0-500.0 [facility] Comment on above: Performed By: #### 2 [id number] #### [facility] [address] [place] [address] Platelet mean volume (Bld) [Entitic vol] 6.6 fL Normal 6.4-10.8 [facility] Comment on above: Performed By: #### 2 [id number] #### [facility] [address] [place] [address] RBC (Bld) [#/Vol] 4.4 E12/L Normal 4.3-5.9 [facility] Comment on above: Performed By: #### 2 [id number] #### [facility] [address] [place] [address] WBC corrected for nucl RBC Auto (Bld) [#/Vol] 9.7 E9/L Normal 4.0-11.0 [facility] Comment on above: Performed By: #### 2 [id number] #### [facility] [address] [place] [address] CHEMISTRYOrdered By: SYSTEM SYSTEM on 09-22-2023 Albumin [Mass/Vol] 4.2 g/dL Normal 3.3 - 5.0 gm/dL [facility] Albumin/Globulin [Mass ratio] 1.3 {ratio} Normal 1.1 - 2.2 [facility] ALP [Catalytic activity/Vol] 68 [iU]/d Normal 21 - 98 Int._Unit/L [facility] ALT No additional P-5'-P [Catalytic activity/Vol] 18 [iU]/d Normal 6 - 46 Int._Unit/L [facility] Anion gap [Moles/Vol] 13 mmol/L Normal 6 - 16 mEq/L R emisol Chem AST [Catalytic activity/Vol] 17 [iU]/d Normal 5 - 43 Int._Unit/L [facility] Bilirubin [Mass/Vol] 0.5 mg/dL Normal 0.0 - 1 .1 mg/dL [facility] Bilirubin.direct [Mass/Vol] 0.1 mg/dL Normal 0.0 - 0.4 mg/dL [facility] Bilirubin.indirect [Mass or moles/Vol] 0.4 mg/dL Normal 0.1 - 0.9 mg/dL [facility] Calcium [Mass/Vol] 8.9 mg/dL Normal 8.9 - 11. 1 mg/dL [facility] Chloride [Moles/Vol] 103 mmol/L Normal 101 - 1 11 mmol/L [facility] CO2 [Moles/Vol] 21 mmol/L Normal 21 - 31 mmol/L [facility] Creatinine [Mass/Vol] 0.6 mg/dL Normal 0.5 - 1.3 mg/dL [facility] eGFR 128 mL/min/1.73 m2 Normal >=59mL/mi n/1 .73 m2 [facility] Globulin (S) [Mass/Vol] 3.2 g/dL Normal 1.4 - 4.0 gm/dL [facility] Glucose [Mass/Vol] 89 mg/dL Normal 55 - 199 mg/dL [facility] Lipase [Catalytic activity/Vol] 30 U/L Normal 13 - 58 unit/L [facility] Potassium [Moles/Vol] 3.5 mmol/L Normal 3.5 - 5.3 mmol/L [facility] Protein [Mass/Vol] 7.4 g/dL Normal 6.0 - 7.8 gm/dL [facility] Sodium [Moles/Vol] 133 mmol/L Low 135 - 145 mmol/L [facility] Urea nitrogen [Mass/Vol] 5 mg/dL Normal 5 - 21 mg/d L [facility] Urea nitrogen/Creatinine [Mass ratio] 8 mg/mg Low 10 - 20 [facility] ED Clinical Summaryon 2023 ED Clinical Summary ED Clinical Summary [place] [id number] ED Clinical Summary Person Information Name: SEBASTIAN ORELLANA [facility] Age: 22 Years : 2000 Sex: Female Language: Martiniquais PCP: NONE, XXXX Marital Status: Single Visit Id: Visit Reason: Vomiting - ; Nausea; 8 wks preg cant keep anything down Speciality: Acuity: 3 Enc Type: Emergency Med Service: Emergency Arrival: 09/22/2023 05:24:18 Discharge: 09/22/2023 07:17:13 LOS: 000 01:53 Checkin: 09/22/2023 05:24:18 Checkout: 09/22/2023 07:17:13 Dispo Type: Home (Routine DC) EVENTS: Event Name Event Status Request Date/Time Start Date/Time Complete Date/Time Arrive Complete 09/22/2023 05:24:18 09/22/2023 05:24:18 09/22/2023 05:24:18 Document Home Meds Request 09/22/2023 05:24:18 Triage Complete 09/22/2023 05:24:18 09/22/2023 05:34:09 09/22/2023 05:34:09 Dr Exam Complete 09/22/2023 05:27:11 09/22/2023 05:27:11 09/22/2023 05:27:11 Registration Complete 09/22/2023 05:27:11 09/22/2023 05:31:19 09/22/2023 05:31:19 Reg Complete Request 09/22/2023 05:31:19 Reg Bed Request Complete 09/22/2023 05:31:19 09/22/2023 05:31:19 09/22/2023 05:31:19 Bed Assign Complete 09/22/2023 05:35:02 09/22/2023 05:35:02 09/22/2023 05:35:02 RN Exam Complete 09/22/2023 05:35:02 09/22/2023 05:38:41 09/22/2023 05:38:41 Pending Labs Complete 09/22/2023 05:38:41 09/22/2023 05:50:11 09/22/2023 06:23:03 Lab Complete 09/22/2023 05:38:41 09/22/2023 06:23:03 Meds Admin Complete 09/22/2023 05:38:41 09/22/2023 06:03:38 Patient Care Complete 09/22/2023 05:38:41 09/22/2023 05:48:54 Pending Labs Complete 09/22/2023 05:50:11 09/22/2023 05:50:11 09/22/2023 06:23:03 Lab Complete 09/22/2023 05:50:11 09/22/2023 05:50:11 09/22/2023 06:23:03 Pending Labs Complete 09/22/2023 05:53:25 09/22/2023 05:53:25 09/22/2023 05:53:26 Pending Labs Collected 09/22/2023 06:22:03 09/22/2023 06:22:03 Lab Collected 09/22/2023 06:22:03 09/22/2023 06:22:03 Discharge Complete 09/22/2023 06:43:48 09/22/2023 07:17:18 09/22/2023 07:17:18 Transfer Complete 09/22/2023 07:17:18 09/22/2023 07:17:18 09/22/2023 07:17:18 ADDRESS: [address] [place] [id number] PHYS DOC NOTES: MEDICAL INFORMATION: Prescriptions Given: New Medications [id number], [address] [place], [place] [id number], [phone] cephalexin (Keflex 500 mg Cap) 1 Capsules By Mouth every 12 hours for 5 Days. Refills: 0. promethazine (promethazine 12.5 mg oral tablet) 1 Tablets By Mouth every 8 hours as needed as needed for nausea/vomiting. Refills: 0. Medications to Continue with No Changes Other Medications ibuprofen (ibuprofen 400 mg Tab) 1 Tablets By Mouth every 6 hours as needed as needed for pain. Refills: 0. PATIENT EDUCATION INFORMATION: Instructions: Morning Sickness; Asymptomatic Bacteriuria Follow up: With: Address: When: Erinn PROCTOR [facility], [address] [place] [address] [place] [address] Business (1) In 3 days 09/25/2023 DIAGNOSIS: Asymptomatic bacteriuria during ; Bacteriuria; Nausea and vomiting during Normal [facility] ED Note-Physicianon 09-22-19 ED Note-Physician ED Note-Physician Basic Information Time Seen: Rodrigo Berg DO 09/22/2023 05:27 Chief Complaint Pt arrives from home with c/o N/V this , is 8 weeks. States she was prescribed zofran by Hitesh which doesnt touch the nausea. Pt states she hasnt been able to eat for days and cant keep water down. Denies abd pain. History of Present Illness HPI: Patient is a 22-year-old female who is approximately 8 weeks who presents the ED for nausea and vomiting. Patient states that she has had severe nausea and vomiting with this. Seen for the past 3 days she has not been able to keep any food or liquids down. She states that she was prescribed Zofran by her FOREST SCIENTIST but is still having nausea and vomiting despite this. She denies any fever or chills. She denies abdominal pain or cramping. She denies any vaginal bleeding or abnormal discharge. ROS: Pertinent review of systems conducted and is negative except as noted above. Physical exam: General: nontoxic appearing and in no distress HEENT: Mucous membranes moist Neuro: awake and alert Neck: supple, trachea midline Card: Heart regular rate and rhythm no murmur Resp: Lungs clear to auscultation no wheeze or rhonchi Abd: Soft and nondistended. No tenderness to palpation with no rebound or guarding. Ext: No gross deformity or edema Physical Exam Vitals & Measurements T: 37.2 ?C(Oral) HR: 67(Peripheral) RR: 16 BP: 115/66 SpO2: 99% HT: 160 cm WT: 72.4 kg BMI: 28.28 Medical Decision Making MEDICAL DECISION MAKING Number and Complexity of Problems Differential Diagnosis: [] [facility] Data External documents reviewed: N/A My EKG interpretation: Noted in chart if applicable My CT interpretation: N/A My X-ray interpretation: Noted in chart if applicable My Ultrasound interpretation: N/A Decision rules/scores evaluated: N/A Discussed with: N/A Treatment and Disposition ED Course: Patient is nontoxic-appearing no distress. Abdomen is soft nontender. Will obtain IV access and give her a liter of lactated Ringer's as well as IV Phenergan. Will obtain blood work and urinalysis here in the ED. Blood work is overall reassuring. Urinalysis shows bacteriuria but also greater than 10 squamous cells most likely representing contamination. As she is we will treat her with a 5-day course of oral Keflex and send the urine for culture. On reevaluation the patient is feeling significantly improved after medications and fluids. She was able to tolerate p.o. liquids here in the ED. We discussed plan of discharge with a short prescription for Phenergan as needed for breakthrough nausea as well as the oral Keflex. Will have her follow-up close with Dr. Proctor her established FOREST SCIENTIST. Shared decision making: As above Code status: N/A Assessment/Plan Asymptomatic bacteriuria during (O99.891: Other specified diseases and conditions complicating ) Bacteriuria (R82.71: Bacteriuria) Nausea and vomiting during (O21.9: Vomiting of , unspecified) Orders: cephalexin, 500 mg = 1 cap(s), Oral, q12hr, X 5 day(s), # 10 cap(s), Refills(s) 0, Pharmacy: [facility]/pharmacy #[id number], 160, cm, 09/22/23 5:34:00 EDT, Height/Length Dosing, 72.4, kg, 09/22/23 5:34:00 EDT, Weight Dosing Lactated Ringers Injection, 1,000 mL, Soln-IV, IV, Once, Stop date 09/22/23 5:38:00 EDT, STAT, Start date 09/22/23 5:38:00 EDT, mL/hr, Infuse over 61, minute(s) promethazine, 12.5 mg = 1 tab(s), Oral, q8hr, PRN as needed for nausea/vomiting, # 12 tab(s), Refills(s) 0, Pharmacy: [facility]/pharmacy #[id number], 160, cm, 09/22/23 5:34:00 EDT, Height/Length Dosing, 72.4, kg, 09/22/23 5:34:00 EDT, Weight Dosing promethazine 12.5 mg + Sodium Chloride 0.9% intravenous solution 50 mL, Injection, IV Piggyback, Once, Stop date 09/22/23 5:38:00 EDT, STAT, Start date 09/22/23 5:38:00 EDT, 151.5 mL/hr, Infuse over 20 minute(s) Basic Metabolic Panel CBC w/ Auto Diff eGFR Extra Blue Tube Extra SST Tube Hepatic Function Panel Lipase Level Saline Lock Insert UA with Cult Rflx Urine Culture Medications Administered Given [id number] [F], 1000 mL, IV Sodium Chloride 0.9% IV Kaylyn 50 mL [F] 50 mL + [id number] [F] 12.5 mg, IV Piggyback Disposition Plan Discharge Prescription List Prescriptions Keflex 500 mg Cap, 500 mg= 1 cap(s), Oral, q12hr promethazine 12.5 mg oral tablet, 12.5 mg= 1 tab(s), Oral, q8hr, PRN Follow-up With When Contact Information Erinn HITESH In 3 days 09/25/[address] [place] [address]- Business (1) Additional Instructions: Patient Education Morning Sickness Asymptomatic Bacteriuria Problem List/Past Medical History Ongoing Anxiety History of cold sores Right otitis media Historical Denies Depression Procedure/Surgical History None. Medications Inpatient LR 1000 mL Bolus, 1000 mL, IV, Once promethazine additive 12.5 mg + Sodium Chloride 0.9% IV Kaylyn 50 (more content not included)... Normal [facility] Comment on above: Result Comment: Elec tronically Signed By: Rodrigo Berg DO\.br\Date and Time Signed: 09/22/23 06:44 EDT ED Patient Summaryon 024 ED Patient Summary ED Patient Summary [address] [address] Patient Discharge Instructions Person Information Name: SEBASTIAN ORELLANA Age: 22 Years Arrival Date: 09/22/2023 05:24:18 Discharge Diagnosis: Asymptomatic bacteriuria during ; Bacteriuria; Nausea and vomiting during Primary Care Physician: NONE, XXXX Provider Information Primary Provider: Rodrigo Berg DO Advanced Public Area Attendant:None The exam and treatment you received in the Emergency Department were for an urgent problem and are not intended as complete care. It is important that you follow up with a doctor, nurse practitioner, or physician?s itinerant teacher assistant for ongoing care. If your symptoms become worse or you do not improve as expected and you are unable to reach your usual health care provider, you should return to the Emergency Department. We are available 24 hours a day. SEBASTIAN ORELLANA has been given the following list of patient education materials, prescriptions and follow-up instructions: Follow-up Instructions: With: Address: When: Erinn PROCTOR [facility], [address] [facility] [place] [address] Business (1) In 3 days 09/25/2023 In the event that this physician does not participate in your insurance network, please consult with your insurance company to find a nearby participating provider. Patient Education Materials: Morning Sickness; Asymptomatic Bacteriuria A MESSAGE TO ALL PATIENTS REGARDING OPIOIDS PRESCRIPTION OPIOIDS: WHAT YOU NEED TO KNOW Prescription opioids can be used to help relieve ofmgzsto-hm-nbqton pain and are often prescribed following a surgery or injury, or for certain health conditions. These medications can be an important part of the treatment but also come with serious risks. It is important to work with your healthcare provider to make sure you are getting the safest, most effective care. WHAT ARE THE RISKS AND SIDE EFFECTS OF OPIOID USE? Prescription opioids carry serious risks of addiction and overdose, especially with prolonged use. An opioid overdose, often marked by slowed breathing, can cause sudden . The use of prescription opioids can have a number of side effects as well, even when taken as directed: ? Tolerance?meaning you might need to take more of the medication for the same pain relief ? Physical dependence?meaning you have symptoms of withdrawal when a medication is stopped ? Increased sensitivity to pain ? Constipation ? Nausea, vomiting, and dry mouth ? Sleepiness and dizziness ? Confusion ? Depression ? Low levels of testosterone that can result in lower sex drive, energy, and strength ? Itching and sweating RISKS ARE GREATER WITH: ? History of drug misuse, substance use disorder, or overdose ? Mental health conditions (such as depression or anxiety) ? Sleep apnea ? Older age (65 years and older) ? Avoid alcohol while taking prescription opioids. Also, unless specifically advised by your health care provider, medications to avoid include: ? Benzodiazepines (such as Xanax or Valium) ? Muscle relaxants (such as Soma or Flexeril) ? Hypnotics (such as Ambien or Lunesta) ? Other prescription opioids KNOW YOUR OPTIONS Talk to your health care provider about ways to manage your pain that don?t involve prescription opioids. Some of these options may actually work better and have fewer risks and side effects. Options may include: ? Pain relievers such as acetaminophen, ibuprofen, and naproxen ? Some medication that are also used for depression or seizures ? Physical therapy and exercise ? Cognitive behavioral therapy, a psychological, goal-directed approach, in which patients learn how to modify physical, behavioral, and emotional triggers of pain and stress. IF YOU ARE PRESCRIBED OPIOIDS FOR PAIN: ? Never take opioids in greater amounts or more often than prescribed. ? Follow up with your primary health care provider. o Work together to create a plan on how to manage your pain. o Talk about ways to help manage your pain that don?t involve prescription opioids. o Talk about any and all concerns and side effects. ? Help prevent misuse and abuse o Never sell or share prescription opioids. o Never use another person?s prescription opioids. ? Store prescription opioids in a secure place and out of reach of others (this may include visitors, children, friends, and family). ? Safely dispose of unused prescription opioids: Find your community drug take-back program or your pharmacy mail-back program, or flush them down the toilet, following guidance from the Food and Drug Administration (www.fda.gov/Drugs/ ResourcesForYou). ? Visit www.cdc.gov/drugove rdose to learn about the risks of opioids abuse and overdose. ? If you believe you may be struggling with addiction, tell y (more content not included)... Normal [facility] HEMATOLOGYOrdered By: SYSTEM SYSTEM on 09-22-2023 Basophils/100 WBC (Bld) 0.2 % Normal 0.0 - 2.0 % [facility] Basophils/Leukocytes Auto (Bld) [Pure # fraction] 0.0 E9/L Normal 0.0 - 0.2 E9/L [facility] Eosinophils (Bld) [#/Vol] 0.1 E9/L Normal 0. 0 - 0.5 E9/L [facility] Eosinophils/100 WBC (Bld) 0.7 % Normal 0.0 - 8.0 % [facility] Erythrocyte distribution width (RBC) [Ratio] 13.1 % Normal 10.9 - 14.2 % [facility] Hematocrit (Bld) [Volume fraction] 39.9 % Normal 34.0 - 46.0 % [facility] Hemoglobin (Bld) [Mass/Vol] 14.0 g/dL Normal 12.0 - 16.0 gm/dL [facility] Lymphocytes (Bld) [#/Vol] 1.8 E9/L Normal 1. 0 - 4.0 E9/L [facility] Lymphocytes/100 WBC (Bld) 18.5 % Normal 14 .0 - 50.0 % [facility] MCH (RBC) [Entitic mass] 31.9 pg Normal 27. 0 - 34.0 pg [facility] MCHC (RBC) [Mass/Vol] 35.2 g/dL Normal 31.4 - 36.0 gm/dL [facility] MCV (RBC) [Entitic vol] 90.5 fL Normal 80.0 - 100.0 fL [facility] Monocytes (Bld) [#/Vol] 0.5 E9/L Normal 0.2 - 1.0 E9/L [facility] Monocytes/100 WBC (Bld) 5.1 % Normal 4.0 - 14.0 % [facility] Neutrophils (Bld) [#/Vol] 7.3 E9/L Normal 2. 0 - 7.5 E9/L [facility] Neutrophils/100 WBC (Bld) 75.5 % High 36 .0 - 75.0 % [facility] Platelet 415.0 E9/L Normal 150.0 - 500.0 E9/L [facility] Platelet mean volume (Bld) [Entitic vol] 6.6 fL Normal 6.4 - 10.8 fL [facility] RBC (Bld) [#/Vol] 4.4 E12/L Normal 4.3 - 5.9 E12/L [facility] WBC corrected for nucl RBC Auto (Bld) [#/Vol] 9.7 E9/L Normal 4.0 - 11.0 E9/L [facility] Hep Func Panelon 09-22-2023 Albumin [Mass/Vol] 4.2 g/dL Normal 3.3-5.0 [facility] Comment on above: Performed By: #### 2 [id number] #### [facility] [address] [place] [address] Albumin/Globulin (S) [Mass conc ratio] 1.3 Normal 1.1-2.2 [facility] Comment on above: Performed By: #### 2 [id number] #### [facility] [address] [place] [address] ALP [Catalytic activity/Vol] 68 Int._Unit/L Normal 21-98 [facility] Comment on above: Performed By: #### 2 [id number] #### [facility] [address] [place] [address] ALT No additional P-5'-P [Catalytic activity/Vol] 18 Int._Unit/L Normal 6-46 [facility] Comment on above: Performed By: #### 2 [id number] #### [facility] [address] [place] [address] AST [Catalytic activity/Vol] 17 Int._Unit/L Normal 5-43 [facility] Comment on above: Performed By: #### 2 [id number] #### [facility] [address] [place] [address] Bilirubin [Mass/Vol] 0.5 mg/dL Normal 0.0-1.1 [facility] Comment on above: Performed By: #### 2 [id number] #### [facility] [address] [place] [address] Bilirubin.direct [Mass/Vol] 0.1 mg/dL Normal 0.0-0.4 [facility] Comment on above: Performed By: #### 2 [id number] #### [facility] [address] [place] [address] Bilirubin.indirect [Mass or moles/Vol] 0.4 mg/dL Normal 0.1-0.9 [facility] Comment on above: Performed By: #### 2 [id number] #### [facility] [address] [place] [address] Globulin (S) [Mass/Vol] 3.2 g/dL Normal 1.4-4.0 [facility] Comment on above: Performed By: #### 2 [id number] #### [facility] [address] [place] [address] Protein [Mass/Vol] 7.4 g/dL Normal 6.0-7.8 [facility] Comment on above: Performed By: #### 2 [id number] #### [facility] [address] [place] [address] Lipase Levelon 09-22-2023 Lipase [Catalytic activity/Vol] 30 U/L Normal 13-58 [facility] Comment on above: Performed By: #### 2 [id number] #### [facility] [address] [place] [address] UA with Cult [employer] 09-22-19 24 Bacteria Auto Ql (U) 2+ /HPF Abnormal Trace Fish [facility] Comment on above: Performed By: #### 4 [id number] #### [facility] [address] [place] [address] Bilirubin Ql (U) Negative Normal Negative [facility] Comment on above: Performed By: #### 4 [id number] #### [facility] [address] [place] [address] Clarity (U) Ex.Turbid Abnormal Clear [facility] Comment on above: Performed By: #### 4 [id number] #### [facility] [address] [place] [address] Color (U) Yellow Normal Yellow [facility] Comment on above: Result Comment: Micr oscopic readings are only performed on those samples that meet specific criteria set forth by [facility]. Performed By: #### 4 [id number] #### [facility] [address] [place] [address] Epithelial cells.squamous Auto (Urine sed) [#/Area] >10 Invalid Interpretation Code [facility] Comment on above: Performed By: #### 4 [id number] #### [facility] [address] [place] [address] Glucose Ql (U) Negative Normal Negative [facility] Comment on above: Performed By: #### 4 [id number] #### [facility] [address] [place] [address] Hemoglobin Auto test strip (U) [Mass/Vol] Negative Normal Negative [facility] Comment on above: Performed By: #### 4 [id number] #### [facility] [address] [place] [address] Ketones Auto test strip Ql (U) 4+ mg/dL Abnormal Negative [facility] Comment on above: Performed By: #### 4 [id number] #### [facility] [address] [place] [address] Leukocyte esterase Auto test strip Ql (U) 250 Anitra/uL Abnormal Negative [facility] Comment on above: Performed By: #### 4 [id number] #### [facility] [address] [place] [address] Mucus Auto Ql (U) 3+ Abnormal Negative [facility] Comment on above: Performed By: #### 4 [id number] #### [facility] [address] [place] [address] Nitrite Auto test strip Ql (U) Negative Normal Negative [facility] Comment on above: Performed By: #### 4 [id number] #### [facility] [address] [place] [address] pH (U) 6.0 [pH] Invalid Interpretation Code 5.0-9.0 [facility] Comment on above: Performed By: #### 4 [id number] #### [facility] [address] [place] [address] Protein Ql (U) Trace Abnormal Negative [facility] Comment on above: Performed By: #### 4 [id number] #### [facility] [address] [place] [address] Specific gravity (U) [Rel density] 1.023 Invalid Interpretation Code 1.005-1.030 [facility] Comment on above: Performed By: #### 4 [id number] #### [facility] [address] [place] [address] Urobilinogen (U) [Mass/Vol] Negative Normal Negative [facility] Comment on above: Performed By: #### 4 [id number] #### [facility] [address] [place] [address] WBC Auto (Urine sed) [#/Area] 31-75 Abnormal 0-5 [facility] Comment on above: Performed By: #### 4 [id number] #### [facility] [address] [place] [address] Type of Urine collection method Clean Catch Normal [facility] Comment on above: Performed By: #### 4 [id number] #### [facility] [address] [place] [address] URINALYSISOrdered By: Jennifer Santacruz on 09-22-2023 Bacteria Auto Ql (U) 2+ /HPF Invalid Interpretation Code Trace/HPF [facility] UA Auto SS Bilirubin Ql (U) Negative Normal Negativemg/ d L [facility] UA Auto SS Clarity (U) Ex.Turbid *ABN* (09/22/23 5:47 AM) Invalid Interpretation Code Clear [facility] UA Auto SS Color (U) Yellow 1 (09/22/23 5:47 AM) Normal Yellow [facility] UA Auto SS Comment on above: Interpretive Data: M icroscopic readings are only performed on those samples that meet specific criteria set forth by [facility]. Epithelial cells.squamous Auto (Urine sed) [#/Area] >10 graded/HPF Invalid Interpretation Code [facility] UA Auto SS Glucose Ql (U) Negative Normal Negativemg/d L [facility] UA Auto SS Hemoglobin Auto test strip (U) [Mass/Vol] Negative (09/22/23 5:47 AM) Normal Negative [facility] UA Auto SS Ketones Auto test strip Ql (U) 4+ mg/dL Invalid Interpretation Code Negativemg/d L [facility] UA Auto SS Leukocyte esterase Auto test strip Ql (U) 250 Anitra/uL *ABN* (09/22/23 5:47 AM) Invalid Interpretation Code Negative [facility] UA Auto SS Mucus Auto Ql (U) 3+ *ABN* (09/22/23 5:47 AM) Invalid Interpretation Code Negative [facility] UA Auto SS Nitrite Auto test strip Ql (U) Negative Normal Negativemg/d L [facility] UA Auto SS pH (U) 6.0 *NA* (09/22/23 5:47 AM) Invalid Interpretation Code 5.0 - 9.0 [facility] UA Auto SS Protein Ql (U) Trace mg/dL Invalid Interpretation Code Negativemg/d L [facility] UA Auto SS Specific gravity (U) [Rel density] 1.023 *NA* (09/22/23 5:47 AM) Invalid Interpretation Code 1.005 - 1.030 [facility] UA Auto SS Urobilinogen (U) [Mass/Vol] Negative Normal Negativemg/d L [facility] UA Auto SS WBC Auto (Urine sed) [#/Area] 31-75 *ABN* (09/22/23 5:47 AM) Invalid Interpretation Code 0-5 [facility] UA Auto SS URINALYSISOrdered By: Rodrigo leung on 09-22-2023 UA Spec Desc Clean Catch (09/22/23 5:47 AM) Normal [facility] UA Auto SS Work Phone: eGFRon 09-22-2023 eGFR 128 mL/min/1.73 m2 Normal >=59 [facility] Comment on above: Order Comment: Order added by Discern Expert. Performed By: #### 1 [id number] #### [facility] [address] [place] [address] PAP [id number] 07-19-2023 Cytology report Cyto stain Doc (Cvx/Vag) Note Invalid Interpretation Code [facility] Comment on above: Result Comment: TEST S RESULT FLAG UNITS REF RANGE LAB - Clinician Provided Cytology Information Source.............Endocervix No. of containers..01 ThinPrep Vial DIAGNOSIS: 01 NEGATIVE FOR INTRAEPITHELIAL LESION OR MALIGNANCY. Specimen adequacy: 01 Satisfactory for evaluation. Endocervical and/or squamous metaplastic cells (endocervical component) are present. Performed by: Quinn Elise, Exercise Physiologist Certified (ASCP) . 01 Note: Note 01 The Pap smear is a screening test designed to aid in the detection of premalignant and malignant conditions of the uterine cervix. It is not a diagnostic procedure and should not be used as the sole means of detecting cervical cancer. Both false-positive and false-negative reports do occur. Test Methodology: Note 01 The [employer] Sales Rep was unable to read this specimen. Therefore a manual review was performed. . 01 The HPV DNA reflex criteria were not met with this specimen result therefore, no HPV testing was performed. - FLAG LEGEND: L-Low Normal,H-High Normal,LL-Alert Low,HH-Alert High <-Panic Low,>-Panic High,A-Abnormal,AA-Critical Abnormal - Performed at: [facility] [address] [id number] Luz Marina Swann MD, Performed at: [facility] [address] [id number] MD Shree Raza Performed By: #### 3 [id number] #### [facility] [address] [place] [address] PAP [id number] 07-16-2023 Collection Technique BRUSH-SPATULA Normal F [facility] Comment on above: Performed By: #### 3 [id number] #### [facility] [address] [place] [address] Gynecological Body Site ENDOCERVIX Normal [facility] Comment on above: Performed By: #### 3 [id number] #### [facility] [address] [place] [address] Physician Orderon 07-14-2023 Physician Order [id number] Normal [facility] DHEA SERUMon 08-11-2021 Dehydroepiandrosterone (DHEA) 339 ng/dL Normal 31-701 [facility] Comment on above: Result Comment: Age [...] 89 Performed By: #### D ZACH. #### [facility] [address] [place] [address] Dr. Austen Hernadez DHEA-SULFATEon 08-01-2021 DHEA-Sulfate 247.0 ug/dL Normal 110.0-431.7 [facility] Comment on above: Performed By: #### D DEANA #### [facility] [address] [place] [address] Dr. Austen Hernadez FSHon 08-01-2021 FSH 1.6 mIU/mL Normal [facility] Comment on above: Result Comment: Adul t Female: Follicular phase 3.5 - 12.5 Ovulation phase 4.7 - 21.5 Luteal phase 1.7 - 7.7 Postmenopausal 25.8 - 134.8 Performed By: #### L BCFS #### [facility] [address] [place] [address] Dr. Austen Hernadez LUTEINIZING HORMONE (LH)on 0 08-01-2021 LH 2.6 mIU/mL Normal [facility] Comment on above: Result Comment: Adul t Female: Follicular phase 2.4 - 12.6 Ovulation phase 14.0 - 95.6 Luteal phase 1.0 - 11.4 Postmenopausal 7.7 - 58.5 Performed By: #### L BCL #### [facility] [address] [place] [address] Dr. Austen Hernadez CBC AUTO DIFFon 07-30-2021 BASO # 0.0 103/ul Normal 0.0-0.1 [facility] Comment on above: Performed By: #### C BC #### [facility] [address] [place] [address] Dr. Austen Hernadez Basophils/100 WBC (Bld) 0.2 % Normal 0.2-2.0 [facility] Comment on above: Performed By: #### C BC #### [facility] [address] [place] [address] Dr. Austen Hernadez EO # 0.1 103/ul Normal 0.0-0.7 [facility] Comment on above: Performed By: #### C BC #### [facility] [address] [place] [address] Dr. Austen Hernadez Eosinophils/100 WBC (Bld) 1.2 % Normal 0.9-7.0 [facility] Comment on above: Performed By: #### C BC #### [facility] [address] [place] [address] Dr. Austen Hernadez Erythrocyte distribution width (RBC) [Ratio] 12.1 % Normal 11.0-15.0 [facility] Comment on above: Performed By: #### C BC #### [facility] [address] [place] [address] Dr. Austen Hernadez Hematocrit (Bld) [Volume fraction] 40.2 % Normal 36.0-48.0 [facility] Comment on above: Performed By: #### C BC #### [facility] [address] [place] [address] Dr. Austen Hernadez Hemoglobin (Bld) [Mass/Vol] 13.3 g/dL Normal 12.0-16.0 [facility] Comment on above: Performed By: #### C BC #### [facility] [address] [place] [address] Dr. Austen Hernadez IG # 0.04 10e3/ul Critically high 0.00-0.03 [facility] Comment on above: Performed By: #### C BC #### [facility] [address] [place] [address] Dr. Austen Hernadez IG % 0.5 % Normal 0.0-0.5 [facility] Comment on above: Performed By: #### C BC #### [facility] [address] [place] [address] Dr. Austen Hernadez LYMPH # 1.7 103/ul Normal 1.2-3.8 [facility] Comment on above: Performed By: #### C BC #### [facility] [address] [place] [address] Dr. Austen Hernadez Lymphocytes/100 WBC (Bld) 20.1 % Critically low 20.5-6 0.0 [facility] Comment on above: Performed By: #### C BC #### [facility] [address] [place] [address] Dr. Austen Hernadez MANUAL DIFF REQ NO Normal [facility] Comment on above: Performed By: #### C BC #### [facility] [address] [place] [address] Dr. Austen Hernadez MCH (RBC) [Entitic mass] 30.0 pg Normal 26.7-34.0 [facility] Comment on above: Performed By: #### C BC #### [facility] [address] [place] [address] Dr. Austen eHrnadez MCHC (RBC) [Mass/Vol] 33.1 g/dL Normal 29.9-35.2 [facility] Comment on above: Performed By: #### C BC #### [facility] [address] [place] [address] Dr. Austen Hernadez MCV (RBC) [Entitic vol] 90.5 fL Normal 81.0-99.0 [facility] Comment on above: Performed By: #### C BC #### [facility] [address] [place] [address] Dr. Austen Hernadez MONO # 0.5 103/ul Normal 0.3-0.8 [facility] Comment on above: Performed By: #### C BC #### [facility] [address] [place] [address] Dr. Austen Hernadez Monocytes/100 WBC (Bld) 5.8 % Normal 1.7-12.0 [facility] Comment on above: Performed By: #### C BC #### [facility] [address] [place] [address] Dr. Austen Hernadez NEUT # 6.2 103/ul Normal 1.4-6.5 [facility] Comment on above: Performed By: #### C BC #### [facility] [address] [place] [address] Dr. Austen Hernadez Neutrophils/100 WBC (Bld) 72.2 % Normal 43.0-75.0 [facility] Comment on above: Performed By: #### C BC #### [facility] [address] [address] [address] Austen Hernadez Platelet mean volume (Bld) [Entitic vol] 8.2 fL Critically low 9.5-13.5 [facility] Comment on above: Performed By: #### C BC #### [facility] [address] [address] [address] Austen Hernadez PLT 350 103/ul Normal 150-450 [facility] Comment on above: Performed By: #### C BC #### [facility] [address] [address] [address] Autsen Hernadez RBC 4.44 106/ul Normal 4.20-5.40 [facility] Comment on above: Performed By: #### C BC #### [facility] [address] [place] [address] Dr. Austen Hernadez WBC 8.6 103/ul Normal 4.0-11.0 [facility] Comment on above: Performed By: #### C BC #### [facility] [address] [place] [address] Dr. Austen Hernadez GLYCOHEMOGLOBIN A1Con 2021 ADA RECOMMENDATION SEE BELOW Normal [facility] Comment on above: Result Comment: ADA RECOMMENDED LIMIT 4.0 - 6.0 ADA THERAPEUTIC TARGET < 7.0 ACTION SUGGESTED > 7.0 Performed By: #### A 1C #### [facility] [address] [place] [address] Dr. Austen Hernadez Glucose [Mass/Vol] 108 mg/dL Normal [facility] Comment on above: Performed By: #### A 1C #### [facility] [address] [place] [address] Dr. Austen Hernadez HbA1c (Bld) [Mass fraction] 5.4 % Normal 4.5-6.2 [facility] Comment on above: Performed By: #### A 1C #### [facility] [address] [place] [address] Dr. Austen Hernadez TSHon 07-30-2021 TSH 1.365 uIU/mL Normal 0.358-3.740 [facility] Comment on above: Performed By: #### T SH #### [facility] [address] [address] [address] Austen Hernadez TSH RANGE SEE BELOW Normal [facility] Comment on above: Result Comment: <0.3 4 UIU/ml HYPERTHYROID 0.34-5.60 UIU/ml EUTHYROID >5.60 UIU/ml HYPOTHYROID Performed By: #### T #### [facility] [address] [place] [address] Dr. Austen Hernadez US PELVIS AND TRANSVAGon US PELVIS [...] by: MACARENA GARCIA Date: 2021-07-30 15:31 Normal [facility] Vital Signs Date Time Vital Sign Value Performing Clinician Facility 09-22-2023 07:00-0400 Diastolic blood pressure 85 mm[Hg] Rodrigo [facility] 09-22-2023 07:00-0400 Heart rate 58 /min Rodrigo [facility] [facility] 09-22-2023 07:00-0400 Mean blood pressure 94 mm[Hg] [facility] [employer] [facility] 09-22-2023 07:00-0400 SaO2% (BldA) [Mass fraction] 100 % Rodrigo Morena [facility] 09-22-2023 07:00-0400 Systolic blood pressure 113 mm[Hg] Rodrigo Morena [facility] 09-22-2023 06:30-0400 Diastolic blood pressure 67 mm[Hg] Rodrigo Morena [facility] 09-22-2023 06:30-0400 Heart rate 62 /min Rodrigo Morena [facility] 09-22-2023 06:30-0400 Mean blood pressure 81 mm[Hg] Rodrigo Morena [facility] 09-22-2023 06:30-0400 Respiratory rate 16 /min Rodrigo Morena [facility] 09-22-2023 06:30-0400 SaO2% (BldA) [Mass fraction] 99 % Rodrigo Morena [facility] 09-22-2023 06:30-0400 Systolic blood pressure 110 mm[Hg] Rodrigo Morena [facility] 09-22-2023 05:52-0400 Diastolic blood pressure 66 mm[Hg] Rodrigo Morena [facility] 09-22-2023 05:52-0400 Heart rate 76 /min Rodrigo Morena [facility] 09-22-2023 05:52-0400 Mean blood pressure 80 mm[Hg] Rodrigo Morena [facility] 09-22-2023 05:52-0400 Respiratory rate 18 /min Rodrigo Morena [facility] 09-22-2023 05:52-0400 SaO2% (BldA) [Mass fraction] 98 % Rodrigo Berg [facility] 09-22-2023 05:52-0400 Systolic blood pressure 109 mm[Hg] Rodrigo Berg [facility] 09-22-2023 05:29-0400 Body temperature 98.96 [degF] Rodrigo Berg [facility] 09-22-2023 05:29-0400 Heart rate 67 /min Rodrigo Berg [facility] 07-18-2023 00:06-0400 Body height 160 cm Elva Azevedo MD Work Phone: [facility] 07-18-2023 00:06-0400 Body mass index (BMI) [Ratio] 30.11 kg/m2 Elva Azevedo MD [facility] 07-18-2023 00:06-0400 Body temperature 98.29 [degF] Elva Azevedo MD Work Phone: [facility] 07-18-2023 00:06-0400 Body weight 77.11 kg Elva Azevedo MD Work Phone: [facility] 07-18-2023 00:06-0400 Diastolic blood pressure 79 mm[Hg] Elva Azevedo MD Work Phone: [facility] 07-18-2023 00:06-0400 Heart rate 61 /min Elva Azevedo MD Work Phone: [facility] 07-18-2023 00:06-0400 Respiratory rate 16 /min Evla Azevedo MD Work Phone: [facility] 07-18-2023 00:06-0400 SaO2% (BldA) [Mass fraction] 96 % Elva Azevedo MD Work Phone: [facility] 07-18-2023 00:06-0400 Systolic blood pressure 132 mm[Hg] Elva Azevedo MD Work Phone: [facility] 07-07-2022 09:35-0400 Diastolic blood pressure 60 mm[Hg] Chris Banegas [facility] 07-07-2022 09:35-0400 Heart rate 83 /min Chris Banegas [facility] 07-07-2022 09:35-0400 SaO2% (BldA) [Mass fraction] 97 % Chris Bassam [facility] 07-07-2022 09:35-0400 Systolic blood pressure 100 mm[Hg] Chris Banegas [facility] Encounters Encounter Date Encounter Type Care Provider Facility Start: 09-29-2023 End: 09-29-2023 ambulatory ERINN HITESH Not Available Start: 09-22-2023 End: 09-22-2023 Emergency department patient visit Rodrigo Jett Morena [facility] Start: 07-18-2023 End: 07-18-2023 Emergency department patient visit ELVA [facility] Start: 07-18-2023 End: 07-18-2023 Emergency department patient visit Elva Azevedo MD Work Phone: [facility] ED Comment on above: De Fuad's tenosy novitis, left (Primary Dx) Start: 07-14-2023 End: 07-14-2023 ambulatory Love J Spencer Facility:[facility] Start: 07-14-2023 End: 07-14-2023 Lab Drop off Love Martine Noriegae [facility] Start: 06-15-2023 End: 06-15-2023 ambulatory ERINN HITESH Not Available Start: 07-07-2022 End: 07-07-2022 Patient encounter procedure Chris Banegas [facility] Start: 07-30-2021 End: 07-31-[address] ERINN PROCTOR Facility:[facility] Start: 07-15-2021 End: 07-15-2021 Lab Drop off Love Palmer [facility] Plan of Treatment Date Care Activity Detail Author Start: 10-13-2023 Influenza vaccination Flu vacc ine (Season Ended) [facility] Start: 2017 DTaP/Tdap/Td vaccine (1 - Tdap) DTaP/Tdap/Td vaccine (1 - Tdap) [facility] Start: 06-10-1999 COVID-19 Vaccine (#1) COVID-19 Vacci ne (#1) [facility] Payers Date Payer Category Payer Unknown 2023 Unknown [id number] 1998 Unknown [id number] [id number] 1998 Unknown [id number] 2.16.8 [id number] 1998 Unknown [id number] 2.16.8 [id number] 1998 Unknown [id number] 2.16.8 [id number] 1998 Unknown [id number] 2.16.8 [id number] 1998 Unknown [id number] 2.16.84 [id number] 1998 Unknown [id number] [id number] 1959 Unknown [id number] Social History Date Type Detail Facility Start: 10-24-2020 End: 07-07-2022 Tobacco smoking status Never smoked tobacco (finding) [facility] Tobacco smoking status Never [facility] Start: 07-01-2012 Sex Assigned At Female F [facility] Start: 07-18-2023 Tobacco use and exposure Smokeless tobacco non-user [facility] Start: 07-18-2023 Alcohol intake Ex-drinker (finding) [facility] Start: 07-01-2012 History of Social function [facility] Start: 1998 Sex Assigned At Not on file [facility] Functional Status Date Assessment Result Facility 09-22-2023 Functional Status N/A [facility] 07-07-2022 Functional Status N/A [facility] Clinical Notes 07-15-2021 to 09-22-2023 Note Date & Type Note Facility 09-22-2023 Evaluation + Plan note Extrac arvin from: Title:ED Note Author:Rodrigo Berg DO Date :09/22/23 Asymptomatic bacteriuria dur ing (O99.891: Other specified diseases and conditions complicating ) Bacteriuria (R82.71: Bacteriuria) Nausea and vomiting during (O21.9: Vomiting of , unspecified) Orders: cephalexin, 500 mg = 1 cap(s), Oral, q12hr, X 5 day(s), # 10 cap(s), Refills(s) 0, Pharmacy: [facility]/pharmacy #[id number], 160, cm, 09/22/23 5:34:00 EDT, Height/Length Dosing, 72.4, kg, 09/22/23 5:34:00 EDT, Weight Dosing Lactated Ringers Injection, 1,000 mL, Soln-IV, IV, Once, Stop date 09/22/23 5:38:00 EDT, STAT, Start date 09/22/23 5:38:00 EDT, mL/hr, Infuse over 61, minute(s) promethazine, 12.5 mg = 1 tab(s), Oral, q8hr, PRN as needed for nausea/vomiting, # 12 tab(s), Refills(s) 0, Pharmacy: [facility]/pharmacy #[id number], 160, cm, 09/22/23 5:34:00 EDT, Height/Length Dosing, 72.4, kg, 09/22/23 5:34:00 EDT, Weight Dosing promethazine 12.5 mg + Sodium Chloride 0.9% intravenous solution 50 mL, Injection, IV Piggyback, Once, Stop date 09/22/23 5:38:00 EDT, STAT, Start date 09/22/23 5:38:00 EDT, 151.5 mL/hr, Infuse over 20 minute(s) Basic Metabolic Panel CBC w/ Auto Diff eGFR Extra Blue Tube Extra SST Tube Hepatic Function Panel Lipase Level Saline Lock Insert UA with Cult Rflx Urine Culture Diagnostic Tests Pending * Urine Culture 09/22/23 [facility]07-11-2024 Hospital Discharge instructions Patient Education 09/22/2023 07:17:19 Morning Sickness Morning Sickness Morning sickness is when a woman feels nauseous during . This nauseous feeling may or may not come with vomiting. It often occurs in the morning, but it can be a problem at any time of day. Morning sickness is most common during the first trimester. In some cases, it may continue throughout . Although morning sickness is unpleasant, it is usually harmless unless the woman develops severe and continual vomiting (hyperemesis gravidarum), a condition that requires more intense treatment. What are the causes? The exact cause of this condition is not known, but it seems to be related to normal hormonal changes that occur in . What increases the risk? You are more likely to develop this condition if: You experienced nausea or vomiting before your . You had morning sickness during a previous . You are with more than one baby, such as twins. What are the signs or symptoms? Symptoms of this condition include: Nausea. Vomiting. How is this diagnosed? This condition is usually diagnosed based on your signs and symptoms. How is this treated? In many cases, treatment is not needed for this condition. Making some changes to what you eat may help to control symptoms. Your health care provider may also prescribe or recommend: Vitamin B6 supplements. Anti-nausea medicines. Harsh. Follow these instructions at home: Medicines Take lvfw-txj-cjcsiob and prescription medicines only as told by your health care provider. Do not use any prescription, wops-ksd-uhuxhqa, or herbal medicines for morning sickness without first talking with your health care provider. Take multivitamins before getting . This can prevent or decrease the severity of morning sickness in most women. Eating and drinking Eat a piece of dry toast or crackers before getting out of bed in the morning. Eat 5 or 6 small meals a day. Eat dry and bland foods, such as rice or a baked potato. Foods that are high in carbohydrates are often helpful. Avoid greasy, fatty, and spicy foods. Have someone cook for you if the smell of any food causes nausea and vomiting. If you feel nauseous after taking vitamins, take the vitamins at night or with a snack. Eat a protein snack between meals if you are hungry. Nuts, yogurt, and cheese are good options. Drink fluids throughout the day. Try harsh gary made with real harsh, harsh tea made from fresh grated harsh, or harsh candies. General instructions Do not use any products that contain nicotine or tobacco. These products include cigarettes, chewing tobacco, and vaping devices, such as e-cigarettes. If you need help quitting, ask your health careprovider. Get an air purifier to keep the air in your house free of odors. Get plenty of fresh air. Try to avoid odors that trigger your nausea. Consider trying these methods to help relieve symptoms: ?Wearing an acupressure wristband. These wristbands are often worn for seasickness. ?Acupuncture. Contact a health care provider if: Your home remedies are not working and you need medicine. You feel dizzy or light-headed. You are losing weight. Get help right away if: You have persistent and uncontrolled nausea and vomiting. You faint. You have severe pain in your abdomen. Summary Morning sickness is when a woman feels nauseous during . This nauseous feeling may or may not come with vomiting. Morning sickness is most common during the first trimester. It often occurs in the morning, but it can be a problem at any time of day. In many cases, treatment is not needed for this condition. Making some changes to what you eat may help to control symptoms. This information is not intended to replace advice given to you by your health care provider. Make sure you discuss any questions you have with your health care provider. Document Revised: 10/13/2020 Document Reviewed: 09/22/2020 [employer]This Patient Education 2022 [employer]. 09/22/2023 07:17:19 Asymptomatic Bacteriuria Asymptomatic Bacteriuria Asymptomatic bacteriuria is the presence of a large number of bacteria in the urine without the usual symptoms of burning or frequent urination. This is usually not harmful, and treatment may not be needed. A person with this condition will not be more likely to develop an infection in the future. What are the causes? This condition is caused by an increase in bacteria in the urine. This increase can be caused by: Bacteria entering the urinary tract, such as during sex. A blockage in the urinary tract, such as from kidney stones or a tumor. Bladder problems that prevent the bladder from emptying. What increases the risk? You are more likely to develop this condition if: You have diabetes. You are an older adult. This especially affects older adults in long-term care facilities. You are and in the first trimester. You have kidney stones. You are female. You have had a kidney transplant. You have a leaky kidney tube valve (reflux). You had a urinary catheter for a long period of time. This is a long, thin tube that collects urine. What are the signs or symptoms? There are no symptoms of this condition. How is this diagnosed? This condition is diagnosed with a urine test. Because this condition does not cause symptoms, it is usually diagnosed when a urine sample is taken to treat or diagnose another condition, such as or kidney problems. Most women who are in their first trimester of are screened forasymptomatic bacteriuria. How is this treated? Usually, treatment is not needed for this condition. Treating the condition can lead to other problems, such as a yeast infection or the growth of bacteria that do not respond to treatment (antibiotic-resistant bacteria). Some people do need treatment with antibiotic medicines to prevent kidney infection, known as pyelonephritis. Treatment is needed if: You are . In women, kidney infection can lead to: ?Early labor (premature labor). ?Very low weight ( growth restriction). ?Otisco . You are having a procedure that affects the urinary tract. You have had a kidney transplant. If you are diagnosed with this condition, talk with your health care provider about any concerns that you have. Follow these instructions at home: Medicines Take ldii-eqe-rctcola and prescription medicines only as told by your health care provider. If you were prescribed an antibiotic medicine, take it as told by your health care provider. Do notstop using the antibiotic even if you start to feel better. General instructions Monitor your condition for any changes. Drink enough fluid to keep your urine pale yellow. Urinate more often to keep your bladder empty. If you are female, keep the area around your vagina and rectum clean. Wipe from front to back afterurinating or having a bowel movement. Use each piece of toilet paper only once. Keep all follow-up visits. This is important. Contact a health care provider if: You have symptoms of a urine infection, such as: ?A burning sensation, or pain when you urinate. ?A strong need to urinate, or urinating more often. ?Urine turning discolored or cloudy. ?Blood in your urine. ?Urine that smells bad. Get help right away if: You develop signs of a kidney infection, such as: ?Back pain or pelvic pain. ?A fever or chills. ?Nausea or vomiting. ?Severe pain that cannot be controlled with medicine. Summary Asymptomatic bacteriuria is the presence of a large number of bacteria in the urine without the usual symptoms of burning or frequent urination. Usually, treatment is not needed for this condition. Treating the condition can lead to other problems, such as a yeast infection or the growth of bacteria that do not respond to treatment. Some people do need treatment. Treatment is needed if you are , if you are having a procedure that affects the urinary tract, or if you have had a kidney transplant. If you were prescribed an antibiotic medicine, take it as told by your health care provider. Do notstop using the antibiotic even if you start to feel better. This information is not intended to replace advice given to you by your health care provider. Make sure you discuss any questions you have with your health care provider. Document Revised: 10/10/2020 Document Reviewed: 10/10/2020 [employer]This Patient Education 2022 [employer]. Follow Up Care 09/22/2023 05:26:40 With:Erinn PROCTOR Address: [address] , [place] [address] Business (1) When:09/25/2023 06:28:14 [facility]07-11-2024 NoteED Patient Education Note Obstetrics and Gynecology Morning Sickness Morning sickness is when a woman feels nauseous during . This nauseous feeling may or may not come with vomiting. It often occurs in the morning, but it can be a problem at any time of day. Morning sickness is most common during the first trimester. In some cases, it may continue throughout . Although morning sickness is unpleasant, it is usually harmless unless the woman develops severe and continual vomiting (hyperemesis gravidarum), a condition that requires more intense treatment. What are the causes? The exact cause of this condition is not known, but it seems to be related to normal hormonal changes that occur in . What increases the risk? You are more likely to develop this condition if: ? You experienced nausea or vomiting before your . ? You had morning sickness during a previous . ? You are with more than one baby, such as twins. What are the signs or symptoms? Symptoms of this condition include: ? Nausea. ? Vomiting. How is this diagnosed? This condition is usually diagnosed based on your signs and symptoms. How is this treated? In many cases, treatment is not needed for this condition. Making some changes to what you eat may help to control symptoms. Your health care provider may also prescribe or recommend: ? Vitamin B6 supplements. ? Anti-nausea medicines. ? Harsh. Follow these instructions at home: Medicines ? Take cmry-kal-itkxrua and prescription medicines only as told by your health care provider. Do not use any prescription, ufdm-sjp-fzzjsiu, or herbal medicines for morning sickness without first talking with your health care provider. ? Take multivitamins before getting . This can prevent or decrease the severity of morning sickness in most women. Eating and drinking ? Eat a piece of dry toast or crackers before getting out of bed in the morning. ? Eat 5 or 6 small meals a day. ? Eat dry and bland foods, such as rice or a baked potato. Foods that are high in carbohydrates areoften helpful. ? Avoid greasy, fatty, and spicy foods. ? Have someone cook for you if the smell of any food causes nausea and vomiting. ? If you feel nauseous after taking vitamins, take the vitamins at night or with a snack. ? Eat a protein snack between meals if you are hungry. Nuts, yogurt, and cheese are good options. ? Drink fluids throughout the day. ? Try harsh gary made with real harsh, harsh tea made from fresh grated harsh, or harsh candies. General instructions ? Do not use any products that contain nicotine or tobacco. These products include cigarettes, chewing tobacco, and vaping devices, such as e-cigarettes. If you need help quitting, ask your health care provider. ? Get an air purifier to keep the air in your house free of odors. ? Get plenty of fresh air. ? Try to avoid odors that trigger your nausea. ? Consider trying these methods to help relieve symptoms: ? Wearing an acupressure wristband. These wristbands are often worn for seasickness. ? Acupuncture. Contact a health care provider if: ? Your home remedies are not working and you need medicine. ? You feel dizzy or light-headed. ? You are losing weight. Get help right away if: ? You have persistent and uncontrolled nausea and vomiting. ? You faint. ? You have severe pain in your abdomen. Summary ? Morning sickness is when a woman feels nauseous during . This nauseous feeling may or may not come with vomiting. ? Morning sickness is most common during the first trimester. ? It often occurs in the morning, but it can be a problem at any time of day. ? In many cases, treatment is not needed for this condition. Making some changes to what you eat may help to control symptoms. This information is not intended to replace advice given to you by your health care provider. Make sure you discuss any questions you have with your health care provider. Document Revised: 10/13/2020 Document Reviewed: 09/22/2020 HeartThis Patient Education ? 2022 [employer]. Urology Asymptomatic Bacteriuria Asymptomatic bacteriuria is the presence of a large number of bacteria in the urine without the usual symptoms of burning or frequent urination. This is usually not harmful, and treatment may not be needed. A person with this condition will not be more likely to develop an infection in the future. What are the causes? This condition is caused by an increase in bacteria in the urine. This increase can be caused by: ? Bacteria entering the urinary tract, such as during sex. ? A blockage in the urinary tract, such as from kidney stones or a tumor. ? Bladder problems that prevent the bladder from emptying. What increases the risk? You are more likely to develop this condition if: ? You have diabetes. ? You are an o (more content not included)...[facility] 07-18-2023 Hospital Discharge instructions* Discharge Instructions* Elva Azevedo MD - 07/18/2023 12:09 AM EDT You [...] ensure there is good continuity of care. * Attachments The following attachments cannot be sent through Care Everywhere. * Tenosynovitis: Wrist ([place]) [facility] Dis[facility] instructions Patient Education 07/07/2022 10:03:07 BMI for Adults BMI for Adults What is BMI? Body mass index (BMI) is a number that is calculated from a person's weight and height. BMI can help estimate how much of a person's weight is composed of fat. BMI does not measure body fat directly.Rather, it is an alternative to procedures that [...] your height. Both height and weight are measured,and the BMI is calculated from those numbers. This can be done either in [place] or metric measurements. Note that charts and online BMI calculators are available to help you find your BMI quickly and easily without having to do these calculations yourself. To calculate your BMI in [place] measurements: 1.Measure your weight in pounds [...] inches squared measurement is 70 inches x 70inches, which equals 4,900 inches squared. 4.Divide the [...] muscular build, such as an athlete, may havea BMI that is higher than 24.9. In cases like these, BMI is not an accurate measure of body fat. To determine if excess body fat is the cause of a BMI of 25 or higher, further assessments may needto be done by a health care provider. BMI is usually interpreted in the same way for men and women. Where to find more information For more information about BMI, including tools to quickly calculate your BMI, go to these websites: Centers for Disease Control and Prevention: www.cdc.gov [place] Heart Association: www.heart.org National Heart, Lung, and Blood Upperco: www.nhlbi.nih.gov Summary Body mass index (BMI) is a number that is calculated from a person's weight and height. BMI may help estimate how much of a person's weight is composed of fat. BMI can help identify thosewho may be at higher risk for certain medical problems. BMI can be measured using [place] measurements or metric measurements. BMI charts are used to identify whether you are underweight, normal weight, overweight, or obese. This information is not intended to replace advice given to you by your health care provider. Make sure you discuss any questions you have with your health care provider. Document Revised: 11/21/2019 Document Reviewed: 09/28/2019 HeartThis Patient Education 2022 [employer]. 07/07/2022 10:02:02 Tendinitis, Abmv-jx-Ioee Tendinitis Tendinitis is irritation and swelling (inflammation) of a tendon. A tendon is a cord of tissue thatconnects muscle to bone. Tendinitis is most common [...] do activities that involve the same movements overand over again (repetitive motions). What are the [...] or take it off as told by yourdoctor. Managing pain, stiffness, and swelling If told, [...] only as told by your doctor. Take idod-xgv-zhkkiue and prescription medicines only as told by [...] do activities that involve the same movements overand over again. This condition is usually treated with RICE therapy. RICE stands for rest, ice, compression, and elevate. Avoid using the affected area while you have symptoms. This information is not intended to replace advice given to you by your health care provider. Make sure you discuss any questions you have with your health care provider. Document Revised: 11/05/2021 Document Reviewed: 11/05/2021 HeartThis Patient Education 2022 [employer]. Follow Up Care 07/07/2022 09:19:19 With:NONE, XXXX Address: [phone] When: Unknown [facility] [phone] Evaluation + Plan note Diagnostic Tests Pending * Chlamydia/Gonococcus, KESHAI 07[facility]15/21 [facility]* Diagnosis De Quervain's tenosynovitis, left- Primary Radial styloid tenosynovitis documented in this encounter [facility] course Narrative No data available for this section [facility] Discharge instructions No data available for this section [facility] No data available for this section [facility] Reason for referral (narrative) Referred by: Chris Banegas PA-C [facility] Summary Purpose Family History No Family History Records Found No data available for this section No Family History Records Found No data available for this section No Family History Records FoundNo Family History Records FoundNo Family History Records FoundNo Family History Records FoundNo Family History Records FoundNo Family History Records FoundNo Family History Records FoundNo Family History Records FoundNo Family History Records [...] section and content) DATE CREATED AUTHOR 08/12/2021 [facility] DATE CREATED AUTHOR AUTHOR'S ORGANIZ ATION 07/18/2023 [facility] DATE CREATED AUTHOR AUTHOR'S ORGANIZ ATION 09/28/2023 [facility] DATE CREATED AUTHOR AUTHOR'S ORGANIZ ATION 09/29/2023 [facility] DATE CREATED AUTHOR AUTHOR'S ORGANIZ ATION 10/03/2023 [facility] EP[facility] Reason for Visit (unrecogniz ed section and content) Reason Comments Wrist Injury Patient arrived to E with complaints of left wrist injury. Patient states she slipped and went to grab a hold of something and injured her wrist approximately 1 hour [employer]. 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 had issues with [...] BE BASED ON THE PRIMARY CLINICAL RECORDS. [employer] provides no warranty or guarantee of the accuracy or completeness of information in this document.
[2023-10-06 12:59] LABS: Basophils Percent Auto 0.2 % (0.2-2.0); Eosinophils Percent Auto 0.4 % (0.9-7.0); Hematocrit 38.7 % (36.0-48.0); Hemoglobin 13.4 g/dL (12.0-16.0); Immature Granulocytes Abs Auto 0.05 10^3/uL (0.00-0.03); Immature Granulocytes Pct Auto 0.5 % (0.0-0.5); Lymphocytes Absolute Auto 1.8 10^3/uL (1.2-3.8); Lymphocytes Percent Auto 17.3 % (20.5-60.0); Mean Corpuscular HGB Conc 34.6 g/dL (29.9-35.2); Mean Corpuscular Hemoglobin 30.9 pg (26.7-34.0); Mean Corpuscular Volume 89.4 fL (81.0-99.0); Mean Platelet Volume 8.6 fL (9.5-13.5); Monocytes Absolute Auto 0.5 10^3/uL (0.3-0.8); Monocytes Percent Auto 5.1 % (1.7-12.0); Neutrophils Percent Auto 76.5 % (43.0-75.0); Platelet Count 366 10^3/uL (150-450); Red Blood Count 4.33 10^6/uL (4.20-5.40); Red Cell Distribution Width 12.1 % (11.0-15.0); White Blood Count 10.4 10^3/uL (4.0-11.0)
[2023-10-06 13:46] LABS: Estimated Average Glucose 94 mg/dL; Glycohemoglobin A1C 4.9 % (4.5-6.2)
[2023-10-07 06:10] LABS: HBsAg Screen Negative (Negative); HCV Ab Non Reactive (Non Reactive); HIV Ab/p24 Ag Screen Non Reactive (Non Reactive); Rubella Antibodies, IgG 7.93 index (Immune >0.99)
[2023-10-07 12:10] LABS: Rapid Plasma Reagin, Quant Non Reactive titer (NonRea<1:1)
== END 2023-10-06 12:33 | disposition home or self-care (01) ==
LOC: LAB 12:33
PROVIDERS: Visit Provider Obstetrics & Gynecology
DX: N92.6 Irregular menstruation, unspecified (principal); Z36.0 Encounter for antenatal screening for chromosomal anomalies
CPT/HCPCS: 36415; 83036; 85025; 86592; 86762; 86803; 86850; 86900; 86901; 87086; 87340; 87389

== ENCOUNTER 2023-11-16 19:18 | Outpatient (REF) | payer BC, SELFPAY ==
--- OUTSIDE RECORDS SUMMARY | 2023-11-16 19:23 | XMS_ITS | CCD ---
Author Organization [facility] Care Team Providers Care Wood Science Professor Name Role Phone NONE, XXXX Primary Care Physician Unavailab DR ERINN Spaulding Attending Unavailable HITESH, DR PLASENCIA Consulting Unavailable DR ERINN PROCTOR Admitting Unavailable DR MACARENA GARCIA Consulting Unavailable Unavailable Primary Care Provider UnavailELVA Caldera Attending Unavailable DO Rodrigo Berg Attending Unavailable Love Palmer Attending Unavailable Love Palmer Admitting Unavailable DO Rodrigo Berg Attending Unavailable ERINN PROCTOR Attending Unavailable ERINN PROCTOR Attending Unavailable Medications Current Medications Medication Drug Class(es) Dates Sig (Normalized) Sig (Original) cephalexin 500 mg oral capsule (1 source) Cephalosporin Antibacterial Start: 09-22-2023 End: 09-27-2023 take 1 capsule by mouth every twelve hours Keflex 500 mg Cap 500 mg = 1 cap(s), Oral, q12hr, X 5 day(s), # 10 cap(s), Refills(s) 0, Pharmacy: [facility]/pharmacy #[id number], 160, cm, 09/22/23 5:34:00 EDT, Height/Length Dosing, 72.4, kg, 09/22/23 5:34:00 EDT, Weight Dosing Start Date: 09/22/23 Stop Date: 09/27/23 Status: Ordered citalopram 20 mg oral tablet (4 sources) Serotonin Reuptake Inhibitor Start: 03-12-2019 take 1 tablet by mouth once daily citalopram 20 mg Tab TAKE 1 TABLET BY MOUTH EVERY DAY Start Date: 03/12/19 Status: Ordered 21 day ethinyl estradiol 0.027205 mg/hr / etonogestrel 0.005 mg/hr vaginal system [...] day(s), # 10 tab(s), Refills(s) 0, Pharmacy: [facility]/pharmacy #[id number], 160, cm, 07/07/22 9:38:00 EDT, [...] nausea/vomiting, # 12 tab(s), Refills(s) 0, Pharmacy: [facility]/pharmacy #[id number], 160, cm, 09/22/23 5:34:00 EDT, Height/Length [...] Locations R1: This test was performed at: [facility], [address] [place] [address], [id number] , [place], [facility] Comment on above: Performed By: #### 2 [id number] #### [facility] [address] [place] [address] BMPon 09-22-2023 Anion gap [Moles/Vol] 13 mmol/L Normal 6-16 [facility] Comment on above: Performed By: #### 2 [id number] #### [facility] [address] [place] [address] Calcium [Mass/Vol] 8.9 mg/dL Normal 8.9-11.1 [facility] Comment on above: Performed By: #### 2 [id number] #### [facility] [address] [place] [address] Chloride [Moles/Vol] 103 mmol/L Normal 101-111 [facility] Comment on above: Performed By: #### 2 [id number] #### [facility] [address] [place] [address] CO2 [Moles/Vol] 21 mmol/L Normal 21-31 [facility] Comment on above: Performed By: #### 2 [id number] #### [facility] [address] [place] [address] Creatinine [Mass/Vol] 0.6 mg/dL Normal 0.5-1.3 [facility] Comment on above: Performed By: #### 2 [id number] #### [facility] [address] [place] [address] Glucose [Mass/Vol] 89 mg/dL Normal 55-199 [facility] Comment on above: Performed By: #### 2 [id number] #### [facility] [address] [place] [address] Potassium [Moles/Vol] 3.5 mmol/L Normal 3.5-5.3 [facility] Comment on above: Performed By: #### 2 [id number] #### [facility] [address] [place] [address] Sodium [Moles/Vol] 133 mmol/L Low 135-145 [facility] Comment on above: Performed By: #### 2 [id number] #### [facility] [address] [place] [address] Urea nitrogen [Mass/Vol] 5 mg/dL Normal 5-21 [facility] Comment on above: Performed By: #### 2 [id number] #### [facility] [address] [place] [address] Urea nitrogen/Creatinine [Mass ratio] 8 No Units Low 10-20 [facility] Comment on above: Performed By: #### 2 [id number] #### [facility] [address] [place] [address] CBC w/ Auto Diffon 4 Basophils/100 WBC (Bld) 0.2 % Normal 0.0-2.0 [facility] Comment on above: Performed By: #### 2 [id number] #### [facility] [address] [place] [address] Basophils/Leukocytes Auto (Bld) [Pure # fraction] 0.0 E9/L Normal 0.0-0.2 [facility] Comment on above: Performed By: #### 2 [id number] #### [facility] [address] [place] [address] Eosinophils (Bld) [#/Vol] 0.1 E9/L Normal 0.0-0.5 [facility] Comment on above: Performed By: #### 2 [id number] #### [facility] [address] [place] [address] Eosinophils/100 WBC (Bld) 0.7 % Normal 0.0-8.0 [facility] Comment on above: Performed By: #### 2 [id number] #### [facility] [address] [place] [address] Erythrocyte distribution width (RBC) [Ratio] 13.1 % Normal 10.9-14.2 [facility] Comment on above: Performed By: #### 2 [id number] #### [facility] [address] [place] [address] Hematocrit (Bld) [Volume fraction] 39.9 % Normal 34.0-46.0 [facility] Comment on above: Performed By: #### 2 [id number] #### [facility] [address] [place] [address] Hemoglobin (Bld) [Mass/Vol] 14.0 g/dL Normal 12.0-16.0 [facility] Comment on above: Performed By: #### 2 [id number] #### [facility] [address] [place] [address] Lymphocytes (Bld) [#/Vol] 1.8 E9/L Normal 1.0-4.0 [facility] Comment on above: Performed By: #### 2 [id number] #### [facility] [address] [place] [address] Lymphocytes/100 WBC (Bld) 18.5 % Normal 14.0-50.0 [facility] Comment on above: Performed By: #### 2 [id number] #### [facility] [address] [place] [address] MCH (RBC) [Entitic mass] 31.9 pg Normal 27.0-34.0 [facility] Comment on above: Performed By: #### 2 [id number] #### [facility] [address] [place] [address] MCHC (RBC) [Mass/Vol] 35.2 g/dL Normal 31.4-36.0 [facility] Comment on above: Performed By: #### 2 112393 #### [facility] [address] [place] [address] MCV (RBC) [Entitic vol] 90.5 fL Normal 80.0-100.0 [facility] Comment on above: Performed By: #### 2 [id number] #### [facility] [address] [place] [address] Monocytes (Bld) [#/Vol] 0.5 E9/L Normal 0.2-1.0 [facility] Comment on above: Performed By: #### 2 [id number] #### [facility] [address] [place] [address] Neutrophils (Bld) [#/Vol] 7.3 E9/L Normal 2.0-7.5 [facility] Comment on above: Performed By: #### 2 512129 #### [facility] [address] [place] [address] Neutrophils/100 WBC (Bld) 75.5 % High 36.0-75.0 [facility] Comment on above: Performed By: #### 2 [id number] #### [facility] [address] [place] [address] Platelet 415.0 E9/L Normal 150.0-500.0 [facility] Comment on above: Performed By: #### 2 [id number] #### [facility] [address] [place] [address] Platelet mean volume (Bld) [Entitic vol] 6.6 fL Normal 6.4-10.8 [facility] Comment on above: Performed By: #### 2 [id number] #### [facility] [address] [place] [address] RBC (Bld) [#/Vol] 4.4 E12/L Normal 4.3-5.9 [facility] Comment on above: Performed By: #### 2 [id number] #### [facility] [address] [place] [address] WBC corrected for nucl RBC Auto (Bld) [#/Vol] 9.7 E9/L Normal 4.0-11.0 [facility] Comment on above: Performed By: #### 2 [id number] #### [facility] [address] [place] [id number] CHEMISTRYOrdered By: SYSTEM SYSTEM on 09-22-2023 Albumin [...] 2023 ED Clinical Summary ED Clinical Summary [place] [address] ED Clinical Summary Person Information Name: SEBASTIAN ORELLANA [facility] Age: 22 Years : 2000 Sex: Female Language: Nicaraguan PCP: NONE, XXXX Marital Status: Single Visit [...] 09/22/2023 07:17:18 09/22/2023 07:17:18 09/22/2023 07:17:18 ADDRESS: [address] [place] [id number] PHYS DOC NOTES: MEDICAL INFORMATION: Prescriptions Given: New Medications [id number], [address], [place] [id number], [phone] cephalexin (Keflex 500 mg Cap) 1 Capsules [...] Follow up: With: Address: When: Erinn PROCTOR [facility], [address] [place] [address] [place] [address] Business (1) In 3 days 09/25/2023 DIAGNOSIS: Asymptomatic bacteriuria during ; Bacteriuria; Nausea and vomiting during Normal [facility] ED Note-Physicianon 09-22-19 ED Note-Physician ED [...] that she was prescribed Zofran by her CERTIFIED ART THERAPIST but is still having nausea and vomiting [...] and Complexity of Problems Differential Diagnosis: [] [facility] Data External documents reviewed: N/A My EKG [...] follow-up close with Dr. Proctor her established CERTIFIED ART THERAPIST. Shared decision making: As above Code status: N/A Assessment/Plan Asymptomatic bacteriuria during (O99.891: Other specified diseases and conditions complicating ) Bacteriuria (R82.71: Bacteriuria) Nausea and vomiting during (O21.9: Vomiting of , unspecified) Orders: cephalexin, 500 mg = 1 cap(s), Oral, q12hr, X 5 day(s), # 10 cap(s), Refills(s) 0, [id number], cm, 09/22/23 5:34:00 EDT, Height/Length Dosing, 72.4, kg, 09/22/23 5:34:00 EDT, Weight Dosing Lactated Ringers Injection, 1,000 mL, Soln-IV, IV, Once, Stop date 09/22/23 5:38:00 EDT, STAT, Start date 09/22/23 5:38:00 EDT, mL/hr, Infuse over 61, minute(s) promethazine, 12.5 mg = 1 tab(s), Oral, q8hr, PRN as needed for nausea/vomiting, # 12 tab(s), Refills(s) 0, Pharmacy: [facility]/pharmacy #[id number], 160, cm, 09/22/23 5:34:00 EDT, Height/Length [...] Cult Rflx Urine Culture Medications Administered Given [id number] [F], 1000 mL, IV Sodium Chloride 0.9% IV Kaylyn 50 mL [F] 50 mL + [id number] [F] 12.5 mg, IV Piggyback Disposition Plan Discharge Prescription List Prescriptions Keflex 500 mg Cap, 500 mg= 1 cap(s), Oral, q12hr promethazine 12.5 mg oral tablet, 12.5 mg= 1 tab(s), Oral, q8hr, PRN Follow-up With When Contact Information Erinn PROCTOR In 3 days 09/25/[address] , [place] [address] Business (1) Additional Instructions: Patient Education Morning Sickness Asymptomatic Bacteriuria Problem List/Past Medical History Ongoing Anxiety History of cold sores Right otitis media Historical Denies Depression Procedure/Surgical History None. Medications Inpatient LR 1000 mL Bolus, 1000 mL, IV, Once promethazine additive 12.5 mg + Sodium Chloride 0.9% IV Kaylyn 50 (more content not included)... Normal [facility] Comment on above: Result Comment: Elec tronically Signed By: Rodrigo Berg DO\.br\Date and Time Signed: 09/22/23 06:44 EDT ED Patient Summaryon ED Patient Summary ED Patient Summary [address] [address] Patient Discharge Instructions Person Information Name: SEBASTIAN ORELLANA Age: 22 Years Arrival Date: 09/22/2023 05:24:18 Discharge Diagnosis: Asymptomatic bacteriuria during ; Bacteriuria; Nausea and vomiting during Primary Care Physician: NONE, XXXX Provider Information Primary Provider: Rodrigo Berg DO Advanced Cane Flume Watchman:None The exam and treatment you received in the Emergency Department were for an urgent problem and are not intended as complete care. It is important that you follow up with a doctor, nurse practitioner, or physician?s accounting assistant for ongoing care. If your symptoms [...] Follow-up Instructions: With: Address: When: Erinn PROCTOR [facility], [address] [place] [address] [place] [address] Business (1) In 3 days 09/25/2023 In the event that this physician does not participate in your insurance network, please consult with your insurance company to find a nearby participating provider. Patient Education Materials: Morning Sickness; Asymptomatic Bacteriuria A MESSAGE TO ALL PATIENTS REGARDING OPIOIDS PRESCRIPTION OPIOIDS: WHAT YOU NEED TO KNOW Prescription opioids can be used to help relieve tcboicnd-ky-nxhbwe pain and are often prescribed following a [...] tell y (more content not included)... Normal [facility] HEMATOLOGYOrdered By: SYSTEM SYSTEM on 09-22-2023 [...] 09-22-2023 Albumin [Mass/Vol] 4.2 g/dL Normal 3.3-5.0 [facility] Comment on above: Performed By: #### 2 [id number] #### [facility] [address] [place] [address] Albumin/Globulin (S) [Mass conc ratio] 1.3 Normal 1.1-2.2 [facility] Comment on above: Performed By: #### 2 [id number] #### [facility] [address] [place] [address] ALP [Catalytic activity/Vol] 68 Int._Unit/L Normal 21-98 [facility] Comment on above: Performed By: #### 2 [id number] #### [facility] [address] [place] [address] ALT No additional P-5'-P [Catalytic activity/Vol] 18 Int._Unit/L Normal 6-46 [facility] Comment on above: Performed By: #### 2 [id number] #### [facility] [address] [place] [address] AST [Catalytic activity/Vol] 17 Int._Unit/L Normal 5-43 [facility] Comment on above: Performed By: #### 2 [id number] #### [facility] [address] [place] [address] Bilirubin [Mass/Vol] 0.5 mg/dL Normal 0.0-1.1 [facility] Comment on above: Performed By: #### 2 [id number] #### [facility] [address] [place] [address] Bilirubin.direct [Mass/Vol] 0.1 mg/dL Normal 0.0-0.4 [facility] Comment on above: Performed By: #### 2 [id number] #### [facility] [address] [place] [address] Bilirubin.indirect [Mass or moles/Vol] 0.4 mg/dL Normal 0.1-0.9 [facility] Comment on above: Performed By: #### 2 154395 #### [facility] [address] [place] [address] Globulin (S) [Mass/Vol] 3.2 g/dL Normal 1.4-4.0 [facility] Comment on above: Performed By: #### 2 [id number] #### [facility] [address] [place] [address] Protein [Mass/Vol] 7.4 g/dL Normal 6.0-7.8 [facility] Comment on above: Performed By: #### 2 [id number] #### [facility] [address] [place] [address] Lipase Levelon 09-22-2023 Lipase [Catalytic activity/Vol] 30 U/L Normal 13-58 [facility] Comment on above: Performed By: #### 2 [id number] #### [facility] [address] [place] [address] UA with Cult Rflxon 09-22-19 24 Bacteria Auto Ql (U) 2+ /HPF Abnormal Trace Fish er [facility] Comment on above: Performed By: #### 4 [id number] #### [facility] [address] [place] [address] Bilirubin Ql (U) Negative Normal Negative [facility] Comment on above: Performed By: #### 4 [id number] #### [facility] [address] [place] [address] Clarity (U) Ex.Turbid Abnormal Clear [facility] Comment on above: Performed By: #### 4 [id number] #### [facility] [address] [place] [address] Color (U) Yellow Normal Yellow [facility] Comment on above: Result Comment: Micr oscopic readings are only performed on those samples that meet specific criteria set forth by [facility]. Performed By: #### 4 [id number] #### [facility] [address] [place] [address] Epithelial cells.squamous Auto (Urine sed) [#/Area] >10 Invalid Interpretation Code [facility] Comment on above: Performed By: #### 4 [id number] #### [facility] [address] [place] [address] Glucose Ql (U) Negative Normal Negative [facility] Comment on above: Performed By: #### 4 [id number] #### [facility] [address] [place] [address] Hemoglobin Auto test strip (U) [Mass/Vol] Negative Normal Negative [facility] Comment on above: Performed By: #### 4 [id number] #### [facility] [address] [place] [address] Ketones Auto test strip Ql (U) 4+ mg/dL Abnormal Negative [facility] Comment on above: Performed By: #### 4 [id number] #### [facility] [address] [place] [address] Leukocyte esterase Auto test strip Ql (U) 250 Anitra/uL Abnormal Negative [facility] Comment on above: Performed By: #### 4 [id number] #### [facility] [address] [place] [address] Mucus Auto Ql (U) 3+ Abnormal Negative [facility] Comment on above: Performed By: #### 4 [id number] #### [facility] [address] [place] [address] Nitrite Auto test strip Ql (U) Negative Normal Negative [facility] Comment on above: Performed By: #### 4 [id number] #### [facility] [address] [place] [address] pH (U) 6.0 [pH] Invalid Interpretation Code 5.0-9.0 [facility] Comment on above: Performed By: #### 4 [id number] #### [facility] [address] [place] [address] Protein Ql (U) Trace Abnormal Negative [facility] Comment on above: Performed By: #### 4 [id number] #### [facility] [address] [place] [address] Specific gravity (U) [Rel density] 1.023 Invalid Interpretation Code 1.005-1.030 [facility] Comment on above: Performed By: #### 4 [id number] #### [facility] [address] [place] [address] Urobilinogen (U) [Mass/Vol] Negative Normal Negative [facility] Comment on above: Performed By: #### 4 [id number] #### [facility] [address] [place] [address] WBC Auto (Urine sed) [#/Area] 31-75 Abnormal 0-5 [facility] Comment on above: Performed By: #### 4 [id number] #### [facility] [address] [place] [address] Type of Urine collection method Clean Catch Normal [facility] Comment on above: Performed By: #### 4 [id number] #### [facility] [address] [place] [address] URINALYSISOrdered By: Jennifer Santacruz on 09-22-2023 Bacteria [...] that meet specific criteria set forth by [facility]. Epithelial cells.squamous Auto (Urine sed) [...] AM) Invalid Interpretation Code 1.005 - 1.030 [facility] UA Auto SS Urobilinogen (U) [Mass/Vol] Negative Normal Negativemg/d L [facility] UA Auto SS WBC Auto (Urine sed) [#/Area] 31-75 *ABN* (09/22/23 5:47 AM) Invalid Interpretation Code 0-5 [facility] UA Auto SS URINALYSISOrdered By: Rodrigo leung on 09-22-2023 UA Spec Desc Clean Catch (09/22/23 5:47 AM) Normal [facility] UA Auto SS Work Phone: eGFRon 09-22-2023 eGFR 128 mL/min/1.73 m2 Normal >=59 [facility] Comment on above: Order Comment: Order added by Discern Expert. Performed By: #### 1 [id number] #### [facility] [address] [place] [address] PAP [id number] 07-19-2023 Cytology report Cyto stain Doc (Cvx/Vag) Note Invalid Interpretation Code [facility] Comment on above: Result Comment: TEST S RESULT FLAG UNITS REF RANGE LAB - Clinician Provided Cytology Information Source.............Endocervix No. of containers..01 ThinPrep Vial DIAGNOSIS: 01 NEGATIVE FOR INTRAEPITHELIAL LESION OR MALIGNANCY. Specimen adequacy: 01 Satisfactory for evaluation. Endocervical and/or squamous metaplastic cells (endocervical component) are present. Performed by: Quinn Elise Executive Communications Manager (ASCP) . 01 Note: Note 01 The Pap smear is a screening test designed to aid in the detection of premalignant and malignant conditions of the uterine cervix. It is not a diagnostic procedure and should not be used as the sole means of detecting cervical cancer. Both false-positive and false-negative reports do occur. Test Methodology: Note 01 The Training Advisor(R) Sequencing Machine Operator was unable to read this specimen. Therefore a manual review was performed. . 01 The HPV DNA reflex criteria were not met with this specimen result therefore, no HPV testing was performed. - FLAG LEGEND: L-Low Normal,H-High Normal,LL-Alert Low,HH-Alert High <-Panic Low,>-Panic High,A-Abnormal,AA-Critical Abnormal - Performed at: [facility] [id number] Luz Marina Swann MD, Performed at: [facility] [id number] MD Shree Raza Performed By: #### 3 [id number] #### [facility] [address] [place] [address] PAP [id number] 07-16-2023 Collection Technique BRUSH-SPATULA Normal [facility] Comment on above: Performed By: #### 3 [id number] #### [facility] [address] [place] [address] Gynecological Body Site ENDOCERVIX Normal [facility] Comment on above: Performed By: #### 3 [id number] #### [facility] [address] [place] [address] Physician Orderon 07-14-2023 Physician Order [id number] Normal [facility] DHEA SERUMon 08-11-2021 Dehydroepiandrosterone (DHEA) 339 ng/dL Normal 31-701 [facility] Comment on above: Result Comment: Age [...] 89 Performed By: #### D ZACH. #### [facility] [address] [place] [address] Dr. Austen Hernadez DHEA-SULFATEon 08-01-2021 DHEA-Sulfate 247.0 ug/dL Normal 110.0-431.7 [facility] Comment on above: Performed By: #### D DEANA #### [facility] [address] [place] [address] Dr. Austen Hernadez FSHon 08-01-2021 FSH 1.6 mIU/mL Normal [facility] Comment on above: Result Comment: Adul t Female: Follicular phase 3.5 - 12.5 Ovulation phase 4.7 - 21.5 Luteal phase 1.7 - 7.7 Postmenopausal 25.8 - 134.8 Performed By: #### L BCFS #### [facility] [address] [place] [address] Dr. Austen Hernadez LUTEINIZING HORMONE (LH)on 0 - LH 2.6 mIU/mL Normal [facility] Comment on above: Result Comment: Adul t Female: Follicular phase 2.4 - 12.6 Ovulation phase 14.0 - 95.6 Luteal phase 1.0 - 11.4 Postmenopausal 7.7 - 58.5 Performed By: #### L BCLH #### [facility] [address] [place] [address] Dr. Austen Hernadez CBC AUTO DIFFon 07-30-2021 BASO # 0.0 103/ul Normal 0.0-0.1 [facility] Comment on above: Performed By: #### C BC #### [facility] [address] [place] [address] Dr. Austen Hernadez Basophils/100 WBC (Bld) 0.2 % Normal 0.2-2.0 [facility] Comment on above: Performed By: #### C BC #### [facility] [address] [place] [address] Dr. Austen Hernadez EO # 0.1 103/ul Normal 0.0-0.7 [facility] Comment on above: Performed By: #### C BC #### [facility] [address] [place] [address] Dr. Austen Hernadez Eosinophils/100 WBC (Bld) 1.2 % Normal 0.9-7.0 [facility] Comment on above: Performed By: #### C BC #### [facility] [address] [place] [address] Dr. Austen Hernadez Erythrocyte distribution width (RBC) [Ratio] 12.1 % Normal 11.0-15.0 [facility] Comment on above: Performed By: #### C BC #### [facility] [address] [place] [address] Dr. Austen Hernadez Hematocrit (Bld) [Volume fraction] 40.2 % Normal 36.0-48.0 [facility] Comment on above: Performed By: #### C BC #### [facility] [address] [place] [address] Dr. Austen Hernadez Hemoglobin (Bld) [Mass/Vol] 13.3 g/dL Normal 12.0-16.0 [facility] Comment on above: Performed By: #### C BC #### [facility] [address] [place] [address] Dr. Austen Hernadez IG # 0.04 10e3/ul Critically high 0.00-0.03 [facility] Comment on above: Performed By: #### C BC #### [facility] [address] [place] [address] Dr. Austen Hernadez IG % 0.5 % Normal 0.0-0.5 [facility] Comment on above: Performed By: #### C BC #### [facility] [address] [place] [address] Dr. Austen Hernadez LYMPH # 1.7 103/ul Normal 1.2-3.8 [facility] Comment on above: Performed By: #### C BC #### [facility] [address] [place] [address] Dr. Austen Hernadez Lymphocytes/100 WBC (Bld) 20.1 % Critically low 20.5-6 0.0 [facility] Comment on above: Performed By: #### C BC #### [facility] [address] [place] [address] Dr. Austen Hernadez MANUAL DIFF REQ NO Normal [facility] Comment on above: Performed By: #### C BC #### [facility] [address] [place] [address] Dr. Austen Hernadez MCH (RBC) [Entitic mass] 30.0 pg Normal 26.7-34.0 [facility] Comment on above: Performed By: #### C BC #### [facility] [address] [place] [address] Dr. Austen Hernadez MCHC (RBC) [Mass/Vol] 33.1 g/dL Normal 29.9-35.2 [facility] Comment on above: Performed By: #### C BC #### [facility] [address] [place] [address] Dr. Austen Hernadez MCV (RBC) [Entitic vol] 90.5 fL Normal 81.0-99.0 [facility] Comment on above: Performed By: #### C BC #### [facility] [address] [place] [address] Dr. Austen Hernadez MONO # 0.5 103/ul Normal 0.3-0.8 [facility] Comment on above: Performed By: #### C BC #### [facility] [address] [place] [address] Dr. Austen Hernadez Monocytes/100 WBC (Bld) 5.8 % Normal 1.7-12.0 [facility] Comment on above: Performed By: #### C BC #### [facility] [address] [place] [address] Dr. Austen Hernadez NEUT # 6.2 103/ul Normal 1.4-6.5 [facility] Comment on above: Performed By: #### C BC #### [facility] [address] [place] [address] Dr. Austen Hernadez Neutrophils/100 WBC (Bld) 72.2 % Normal 43.0-75.0 [facility] Comment on above: Performed By: #### C BC #### [facility] [address] [address] [address] Austen Hernadez Platelet mean volume (Bld) [Entitic vol] 8.2 fL Critically low 9.5-13.5 [facility] Comment on above: Performed By: #### C BC #### [facility] [address] [address] [address] Austen Hernadez PLT 350 103/ul Normal 150-450 [facility] Comment on above: Performed By: #### C BC #### [facility] [address] [address] [address] Austen Hernadez RBC 4.44 106/ul Normal 4.20-5.40 [facility] Comment on above: Performed By: #### C BC #### [facility] [address] [place] [address] Dr. Austen Hernadez WBC 8.6 103/ul Normal 4.0-11.0 [facility] Comment on above: Performed By: #### C BC #### [facility] [address] [place] [address] Dr. Austen Hernadez GLYCOHEMOGLOBIN A1Con 2021 ADA RECOMMENDATION SEE BELOW Normal [facility] Comment on above: Result Comment: ADA RECOMMENDED LIMIT 4.0 - 6.0 ADA THERAPEUTIC TARGET < 7.0 ACTION SUGGESTED > 7.0 Performed By: #### A 1C #### [facility] [address] [place] [address] Dr. Austen Hernadez Glucose [Mass/Vol] 108 mg/dL Normal [facility] Comment on above: Performed By: #### A 1C #### [facility] [address] [place] [address] Dr. Austen Hernadez HbA1c (Bld) [Mass fraction] 5.4 % Normal 4.5-6.2 [facility] Comment on above: Performed By: #### A 1C #### [facility] [address] [place] [address] Dr. Austen Hernadez TSHon 07-30-2021 TSH 1.365 uIU/mL Normal 0.358-3.740 [facility] Comment on above: Performed By: #### T SH #### [facility] [address] [place] [address] Dr. Austen Hernadez TSH RANGE SEE BELOW Normal [facility] Comment on above: Result Comment: <0.3 4 UIU/ml HYPERTHYROID 0.34-5.60 UIU/ml EUTHYROID >5.60 UIU/ml HYPOTHYROID Performed By: #### T SH #### [facility] [address] [place] [address] Dr. Austen Hernadez US PELVIS AND TRANSVAGon [...] by: MACARENA GARCIA Date: 2021-07-30 15:31 Normal [facility] Vital Signs Date Time Vital Sign Value Performing Clinician Facility 09-22-2023 07:00-0400 Diastolic blood pressure 85 mm[Hg] [facility] 09-22-2023 07:00-0400 Heart rate 58 /min [facility] 09-22-2023 07:00-0400 Mean blood pressure 94 mm[Hg] [facility] 09-22-2023 07:00-0400 SaO2% (BldA) [Mass fraction] 100 % Rodrigo Morena [facility] 09-22-2023 07:00-0400 Systolic blood pressure 113 mm[Hg] Rodrigo Morena [facility] 09-22-2023 06:30-0400 Diastolic blood pressure 67 mm[Hg] Rodrigo Morena [facility] 09-22-2023 06:30-0400 Heart rate 62 /min Rodrigo Morena [facility] 09-22-2023 06:30-0400 Mean blood pressure 81 mm[Hg] Rodrigo Morena [facility] 09-22-2023 06:30-0400 Respiratory rate 16 /min Rodrigo Morena [facility] 09-22-2023 06:30-0400 SaO2% (BldA) [Mass fraction] 99 % Rodrigo Morena [facility] 09-22-2023 06:30-0400 Systolic blood pressure 110 mm[Hg] Rodrigo Morena [facility] 09-22-2023 05:52-0400 Diastolic blood pressure 66 mm[Hg] Rodrigo Morena [facility] 09-22-2023 05:52-0400 Heart rate 76 /min Rodrigo Morena [facility] 09-22-2023 05:52-0400 Mean blood pressure 80 mm[Hg] Rodrigo Morena [facility] 09-22-2023 05:52-0400 Respiratory rate 18 /min Rodrigo Morena [facility] 09-22-2023 05:52-0400 SaO2% (BldA) [Mass fraction] 98 % Rodrigo Berg [facility] 09-22-2023 05:52-0400 Systolic blood pressure 109 mm[Hg] Rodrigo Berg [facility] 09-22-2023 05:29-0400 Body temperature 98.96 [degF] Rodrigo Berg [facility] 09-22-2023 05:29-0400 Heart rate 67 /min Rodrigo Berg [facility] 07-18-2023 00:06-0400 Body height 160 cm Elva Azevedo MD Work Phone: [facility] [employer] 07-18-2023 00:06-0400 Body mass index (BMI) [Ratio] 30.11 kg/m2 [facility] 07-18-2023 00:06-0400 Body temperature 98.29 [degF] Elva Azevedo MD Work Phone: [facility] [employer] 07-18-2023 00:06-0400 Body weight 77.11 kg Elva Azevedo MD Work Phone: [facility] [employer] 07-18-2023 00:06-0400 Diastolic blood pressure 79 mm[Hg] Elva Azevedo MD Work Phone: [facility] [employer] 07-18-2023 00:06-0400 Heart rate 61 /min Elva Azevedo MD Work Phone: [facility] [employer] 07-18-2023 00:06-0400 Respiratory rate 16 /min Elva Azevedo MD Work Phone: [facility] [employer] 07-18-2023 00:06-0400 SaO2% (BldA) [Mass fraction] 96 % Elva Azevedo MD Work Phone: [facility] [employer] 07-18-2023 00:06-0400 Systolic blood pressure 132 mm[Hg] Elva Azevedo MD Work Phone: [facility] 07-07-2022 09:35-0400 Diastolic blood pressure 60 mm[Hg] Chris Bassam [facility] 07-07-2022 09:35-0400 Heart rate 83 /min Chris Bassam [facility] 07-07-2022 09:35-0400 SaO2% (BldA) [Mass fraction] 97 % Chris Bassam [facility] 07-07-2022 09:35-0400 Systolic blood pressure 100 mm[Hg] Chris Bassam [facility] Encounters Encounter Date Encounter Type Care Provider Facility Start: 10-17-2023 End: 10-17-2023 ambulatory ERINN HITESH Not Available Start: 09-29-2023 End: 09-29-2023 ambulatory ERINN HITESH Not Available Start: 09-22-2023 End: 09-22-2023 Emergency department patient visit Rodrigo Berg [facility] Start: 07-18-2023 End: 07-18-2023 Emergency department patient visit [facility] Start: 07-18-2023 End: 07-18-2023 Emergency department patient visit Elva Azevedo MD Work Phone: [facility] Comment on above: De Querlonnie's tenosy novitis, left (Primary Dx) Start: 07-14-2023 End: 07-14-2023 ambulatory Loev J Spencer Facility:[facility] Start: 07-14-2023 End: 07-14-2023 Lab Drop off Love Noriegae [facility] Start: 06-15-2023 End: 06-15-2023 ambulatory ERINN PROCTOR Not Available Start: 07-07-2022 End: 07-07-2022 Patient encounter procedure Chris Banegas [facility] Start: 07-30-2021 End: 07-31-[address] OBRIENSandra CAIHITESH Facility: Start: 07-15-2021 End: 07-15-2021 Lab Drop off Love Palmer [facility] Plan of Treatment Date Care Activity Detail Author Start: 10-13-2023 Influenza vaccination Flu vacc ine (Season Ended) [facility] Start: 2017 DTaP/Tdap/Td vaccine (1 - Tdap) DTaP/Tdap/Td vaccine (1 - Tdap) [facility] Start: 06-10-1999 COVID-19 Vaccine (#1) COVID-19 Vacci ne (#1) [facility] Payers Date Payer Category Payer Unknown 2023 Unknown [id number] 1998 Unknown [id number] 2.16.84 [id number] 1998 Unknown [id number] 2.16.8 [id number] 1998 Unknown [id number] 2.16.8 [id number] 1998 Unknown [id number] 2.16.8 [id number] 1998 Unknown [id number] 2.16.8 [id number] 1998 Unknown [id number] 2.16.84 [id number] 1998 Unknown [id number] 2.16.84 [id number] 1998 Unknown [id number] 2.16.84 [id number] 1959 Unknown [id number] Social History Date Type Detail Facility Start: 10-24-2020 End: 07-07-2022 Tobacco smoking status Never smoked tobacco (finding) [facility] Tobacco smoking status Never [facility] Start: 07-01-2012 Sex Assigned At Female F [facility] Start: 07-18-2023 Tobacco use and exposure Smokeless tobacco non-user [facility] Start: 07-18-2023 Alcohol intake Ex-drinker (finding) [facility] Start: 07-01-2012 History of Social function [facility] Start: 2000 Sex Assigned At Not on file [facility] Functional Status Date Assessment Result Facility 09-22-2023 Functional Status N/A [facility] 07-07-2022 Functional Status N/A [facility] Clinical Notes 07-15-2021 to 09-22-2023 [...] day(s), # 10 cap(s), Refills(s) 0, Pharmacy: [facility]/pharmacy #[id number], 160, cm, 09/22/23 5:34:00 EDT, Height/Length Dosing, 72.4, kg, 09/22/23 5:34:00 EDT, Weight Dosing Lactated Ringers Injection, 1,000 mL, Soln-IV, IV, Once, Stop date 09/22/23 5:38:00 EDT, STAT, Start date 09/22/23 5:38:00 EDT, mL/hr, Infuse over 61, minute(s) promethazine, 12.5 mg = 1 tab(s), Oral, q8hr, PRN as needed for nausea/vomiting, # 12 tab(s), Refills(s) 0, Pharmacy: [facility]/pharmacy #[id number], 160, cm, 09/22/23 5:34:00 EDT, Height/Length [...] Diagnostic Tests Pending * Urine Culture 09/22/23 [facility]07-11-2024 Hospital Discharge instructions Patient Education 09/22/2023 07:17:19 [...] Follow these instructions at home: Medicines Take ygus-hzv-xidnegj and prescription medicines only as told by your health care provider. Do not use any prescription, gpbh-tnv-zipqfpt, or herbal medicines for morning sickness without [...] provider. Document Revised: 10/13/2020 Document Reviewed: 09/22/2020 [employer] Patient Education 2022 [email or web address]. 09/22/2023 07:17:19 Asymptomatic Bacteriuria Asymptomatic Bacteriuria Asymptomatic [...] labor). ?Very low weight ( growth restriction). ? . You are having a procedure that affects the urinary tract. You have had a kidney transplant. If you are diagnosed with this condition, talk with your health care provider about any concerns that you have. Follow these instructions at home: Medicines Take uxoo-uap-ltgsqzk and prescription medicines only as told by [...] provider. Document Revised: 10/10/2020 Document Reviewed: 10/10/2020 [employer] Patient Education 2022 [email or web address]. Follow Up Care 09/22/2023 05:26:40 With:Erinn PROCTOR Address: [address] [place] [address] Business (1) When:09/25/2023 06:28:14 [facility]07-11-2024 NoteED Patient Education Note Obstetrics and Gynecology [...] these instructions at home: Medicines ? Take kfgo-dhv-likwuun and prescription medicines only as told by your health care provider. Do not use any prescription, fzhk-lht-ganlqxy, or herbal medicines for morning sickness without [...] provider. Document Revised: 10/13/2020 Document Reviewed: 09/22/2020 [employer] Patient Education ? 2022 [employer] Urology Asymptomatic Bacteriuria Asymptomatic bacteriuria is the [...] You are an o (more content not included)...[facility] 07-18-2023 Hospital Discharge instructions* Discharge Instructions* [...] sent through Care Everywhere. * Tenosynovitis: Wrist ([place]) [facility] Discharge instructions Patient Education 07/07/2022 10:03:07 [...] numbers. This can be done either in [place] ([place] or metric measurements. Note that charts and online BMI calculators are available to help you find your BMI quickly and easily without having to do these calculations yourself. To calculate your BMI in [place] ([place] measurements: 1.Measure your weight in pounds [...] Centers for Disease Control and Prevention: www.cdc.gov [place] [employer]: www.heart.org National Heart, Lung, and Blood [place]: www.nhlbi.nih.gov Summary Body mass index (BMI) is a number that is calculated from a person's weight and height. BMI may help estimate how much of a person's weight is composed of fat. BMI can help identify thosewho may be at higher risk for certain medical problems. BMI can be measured using [place]ar[place] measurements or metric measurements. BMI charts are used to identify whether you are underweight, normal weight, overweight, or obese. This information is not intended to replace advice given to you by your health care provider. Make sure you discuss any questions you have with your health care provider. Document Revised: 11/21/2019 Document Reviewed: 09/28/2019 [employer] Patient Education 2022 [email or web address]. 07/07/2022 10:02:02 Tendinitis, Firh-uj-Mgvo Tendinitis Tendinitis is irritation and swelling (inflammation) [...] only as told by your doctor. Take qhhf-isz-lkkmuex and prescription medicines only as told by [...] provider. Document Revised: 11/05/2021 Document Reviewed: 11/05/2021 [employer] Patient Education 2022 [email or web address]. Follow Up Care 07/07/2022 09:19:19 With:NONE, XXXX Address: [phone] When: Unknown [facility] [id number] Evaluation + Plan note Diagnostic Tests Pending * Chlamydia/Gonococcus, KESHIA [facility]* Diagnosis De Quervain's tenosynovitis, left- Primary Radial styloid tenosynovitis documented in this encounter [facility] course Narrative No data available for this section [facility] No data available for this section [facility] No data available for this section [facility] Reason for referral (narrative) Referred by: Chris Banegas PA-C [facility] Summary Purpose Family History No [...] and content) DATE CREATED AUTHOR 08/12/2021 [facility] DATE CREATED AUTHOR AUTHOR'S ORGANIZ ATION 07/18/2023 [facility] DATE CREATED AUTHOR AUTHOR'S ORGANIZ ATION 09/28/2023 [facility] DATE CREATED AUTHOR AUTHOR'S ORGANIZ ATION 09/29/2023 [facility] DATE CREATED AUTHOR AUTHOR'S ORGANIZ ATION 10/19/2023 [facility] Reason for Visit (unrecogniz ed section and content) Reason Comments Wrist Injury Patient arrived to E with complaints of left wrist injury. Patient states she slipped and went to grab a hold of something and injured her wrist approximately 1 hour [employer]. 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 had issues with [...] 30 mg, IntraMUSCular, ONCE, 1 dose, On 07/18/23 at 0015, Do not administer for more [...] BE BASED ON THE PRIMARY CLINICAL RECORDS. [facility]. provides no warranty or guarantee of the accuracy or completeness of information in this document.
[2023-11-20 00:06] LABS: Age Gdln ACOG Testing Note (.); IGP, rfx Aptima HPV ASCU Note (.)
== END 2023-11-16 19:19 | disposition home or self-care (01) ==
LOC: LAB 19:18
PROVIDERS: Visit Provider Obstetrics & Gynecology
DX: Z01.419 Encounter for gynecological examination (general) (routine) without abnormal findings (principal)
CPT/HCPCS: 88175

== ENCOUNTER 2023-12-14 12:55 | Outpatient (OUT) | payer BC, SELFPAY ==
--- NOTE | 2023-12-14 12:59 | US_ITS ---
[address] [address] Patient Name: SEBASTIAN ORELLANA MRN: [id number] date: 2000 Sex: F Assigned Patient Location: [facility] Current Patient Location: [facility] Accession/Order Number: [id number] Exam Date: 12/14/2023 13:00 Report Date: 12/14/2023 14:36 At the request of: ERINN ROSALES Procedure: US OB anatomy EXAMINATION: US OB anatomy, US OB cervical length HISTORY: ANATOMY COMPARISON: No relevant comparison available. TECHNIQUE: Transabdominal sonographic examination was performed for obstetrical and evaluation. FINDINGS: Number: 1 Heart Rate: Present Amniotic Fluid Volume: Subjectively normal Placental Location: Posterior, the placental edge partially covers the internal cervical os Cervix Length: 4.64 cm length] Normal anatomy: Lateral ventricles, cerebellum, posterior fossa, nose, lips, orbits, four-chamber heart, RVOT, LVOT, diaphragm, stomach, kidneys, abdominal cord insertion, bladder, umbilical arteries, three-vessel cord, spine, extremities BIOMETRY: BPD: 4.66 cm; 20 weeks 1 day; 29.30 % HC: 17.55 cm; 20 weeks 0 days; 20 % AC: 14.81 cm; 20 weeks 1 day; 27.80 % FL: 3.24 cm; 20 weeks 1 day; 25.80 % EFW:333.43 g; 21.40 %, 12 ounces FL/AC: 21.88 FL/BPD: 69.53 HC/AC: 1.19 GESTATIONAL AGE: Age by EDC: 20 weeks 4 days MIKE by EDC: 2024-04-28 Age by current US: 20 weeks 1 day MIKE by current US: 2024-05-01 US/US OB anatomy IMPRESSION: Partial placenta previa Otherwise normal anatomy scan Closed cervix measuring 4.6 cm. *Reference: [employer] Practice Guideline for the performance of Obstetric Ultrasound Examinations, December 12, 2006. Electronically authenticated by: GLENYS VASQUEZ Date: 12/14/2023 14:36
--- NOTE | 2023-12-14 12:59 | US_ITS ---
[address] [address] Patient Name: SEBASTIAN ORELLANA MRN: [id number] date: 2000 Sex: F Assigned Patient Location: [facility] Current Patient Location: [facility] Accession/Order Number: [id number] Exam Date: 12/14/2023 12:59 Report Date: 12/14/2023 14:36 At the request of: ERINN ROSALES Procedure: US OB cervical length EXAMINATION: US OB anatomy, US OB cervical length HISTORY: ANATOMY COMPARISON: No relevant comparison available. TECHNIQUE: Transabdominal sonographic examination was performed for obstetrical and evaluation. FINDINGS: Number: 1 Heart Rate: Present Amniotic Fluid Volume: Subjectively normal Placental Location: Posterior, the placental edge partially covers the internal cervical os Cervix Length: 4.64 cm length] Normal anatomy: Lateral ventricles, cerebellum, posterior fossa, nose, lips, orbits, four-chamber heart, RVOT, LVOT, diaphragm, stomach, kidneys, abdominal cord insertion, bladder, umbilical arteries, three-vessel cord, spine, extremities BIOMETRY: BPD: 4.66 cm; 20 weeks 1 day; 29.30 % HC: 17.55 cm; 20 weeks 0 days; 20 % AC: 14.81 cm; 20 weeks 1 day; 27.80 % FL: 3.24 cm; 20 weeks 1 day; 25.80 % EFW:333.43 g; 21.40 %, 12 ounces FL/AC: 21.88 FL/BPD: 69.53 HC/AC: 1.19 GESTATIONAL AGE: Age by EDC: 20 weeks 4 days MIKE by EDC: 2024-04-28 Age by current US: 20 weeks 1 day MIKE by current US: 2024-05-01 US/US OB cervical length IMPRESSION: Partial placenta previa Otherwise normal anatomy scan Closed cervix measuring 4.6 cm. *Reference: [employer] Practice Guideline for the performance of Obstetric Ultrasound Examinations, December 12, 2006. Electronically authenticated by: GLENYS VASQUEZ Date: 12/14/2023 14:36
--- OUTSIDE RECORDS SUMMARY | 2023-12-14 13:07 | XMS_ITS | CCD ---
Author Organization [facility] Care Team Providers Care Mold Machine Operator Name Role Phone NONE, XXXX Primary Care Physician Unavailab DR ERINN Spaulding Attending Unavailable HITESH, DR PLASENCIA Consulting Unavailable DR ERINN PROCTOR Admitting Unavailable JOSE, DR MACARENA Kim Consulting Unavailable Unavailable Primary Care Provider UnavailELVA Caldera Attending Unavailable DO Rodrigo Berg Attending Unavailable Love Palmer Attending Unavailable Love Palmer Admitting Unavailable DO Rodrigo Berg Attending Unavailable ERINN PROCTOR Attending Unavailable ERINN PROCTOR Attending Unavailable ERINN PROCTOR Attending Unavailable Medications Current Medications Medication Drug Class(es) Dates Sig (Normalized) Sig (Original) cephalexin 500 mg oral capsule (1 source) Cephalosporin Antibacterial Start: 09-22-2023 End: 09-27-2023 take 1 capsule by mouth every twelve hours Keflex 500 mg Cap 500 mg = 1 cap(s), Oral, q12hr, X 5 day(s), # 10 cap(s), Refills(s) 0, Pharmacy: [facility]/pharmacy #[id number], 160, cm, 09/22/23 5:34:00 EDT, Height/Length Dosing, 72.4, kg, 09/22/23 5:34:00 EDT, Weight Dosing Start Date: 09/22/23 Stop Date: 09/27/23 Status: Ordered citalopram 20 mg oral tablet (4 sources) Serotonin Reuptake Inhibitor Start: 03-12-2019 take 1 tablet by mouth once daily citalopram 20 mg Tab TAKE 1 TABLET BY MOUTH EVERY DAY Start Date: 03/12/19 Status: Ordered 21 day ethinyl estradiol 0.174382 mg/hr / etonogestrel 0.005 mg/hr vaginal system [...] NEW RING Start Date: 03/12/19 Status: Ordered Pnv #13-Xhot-Wjpnh Acid-Omega3 (1 source) Start: 12-08-2023 Pnv #37-Yvas-Ntcob Acid-Omega3 Active CAP PO December 08, 2023 12:00am predniSONE 20 mg oral tablet (1 source) Start: 07-07-2022 End: 07-12-2022 take 2 tablets by mouth once daily predniSONE 20 mg Tab 40 mg = 2 tab(s), Oral, Daily, X 5 day(s), # 10 tab(s), Refills(s) 0, Pharmacy: [facility]/pharmacy #[id number], 160, cm, 07/07/22 9:38:00 EDT, [...] nausea/vomiting, # 12 tab(s), Refills(s) 0, Pharmacy: [facility]/pharmacy #[id number], 160, cm, 09/22/23 5:34:00 EDT, Height/Length Dosing, 72.4, kg, 09/22/23 5:34:00 EDT, Weight Dosing Start Date: 09/22/23 Status: Ordered valACYclovir 500 mg oral tablet (6 sources) Herpesvirus Nucleoside Analog DNA Polymerase Inhibitor, Herpes Simplex Virus Nucleoside Analog DNA Polymerase Inhibitor, Herpes Zoster Virus Nucleoside Analog DNA Polymerase Inhibitor Start: 12-08-2023 Valacyclovir Active MG PO December 08, 2023 12:00am Start: 03-12-2019 take 1 tablet by titi th once daily valacyclovir 500 mg Tab TAKE [...] conditions (4 sources) Otitis media 03-12-2019 Episodic Viral infection (1 source) Anogenital herpesviral infection; 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, 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 Results Test Name Value Interpretation Reference Range Facility No Panel InformationOrdered By: Christopher Ma on 12-08-2023 Quick Strep (POC) [facility] C Urineon 09-24-2023 Bacteria identified Cx Nom [...] Locations R1: This test was performed at: [facility], [address] [place] [address], [phone] , , [facility] Comment on above: Performed By: #### 2 [id number] #### [facility] [address] [place] [address] BMPon 09-22-2023 Anion gap [Moles/Vol] 13 mmol/L Normal 6-16 [facility] Comment on above: Performed By: #### 2 [id number] #### [facility] [address] [place] [address] Calcium [Mass/Vol] 8.9 mg/dL Normal 8.9-11.1 [facility] Comment on above: Performed By: #### 2 [id number] #### [facility] [address] [place] [address] Chloride [Moles/Vol] 103 mmol/L Normal 101-111 [facility] Comment on above: Performed By: #### 2 [id number] #### [facility] [address] [place] [address] CO2 [Moles/Vol] 21 mmol/L Normal 21-31 [facility] Comment on above: Performed By: #### 2 [id number] #### [facility] [address] [place] [address] Creatinine [Mass/Vol] 0.6 mg/dL Normal 0.5-1.3 [facility] Comment on above: Performed By: #### 2 [id number] #### [facility] [address] [place] [address] Glucose [Mass/Vol] 89 mg/dL Normal 55-199 [facility] Comment on above: Performed By: #### 2 [id number] #### [facility] [address] [place] [address] Potassium [Moles/Vol] 3.5 mmol/L Normal 3.5-5.3 [facility] Comment on above: Performed By: #### 2 [id number] #### [facility] [address] [place] [address] Sodium [Moles/Vol] 133 mmol/L Low 135-145 [facility] Comment on above: Performed By: #### 2 [id number] #### [facility] [address] [place] [address] Urea nitrogen [Mass/Vol] 5 mg/dL Normal 5-21 [facility] Comment on above: Performed By: #### 2 [id number] #### [facility] [address] [place] [address] Urea nitrogen/Creatinine [Mass ratio] 8 No Units Low 10-20 [facility] Comment on above: Performed By: #### 2 [id number] #### [facility] [address] [place] [address] CBC w/ Auto Diffon 4 Basophils/100 WBC (Bld) 0.2 % Normal 0.0-2.0 [facility] Comment on above: Performed By: #### 2 [id number] #### [facility] [address] [place] [address] Basophils/Leukocytes Auto (Bld) [Pure # fraction] 0.0 E9/L Normal 0.0-0.2 [facility] Comment on above: Performed By: #### 2 [id number] #### [facility] [address] [place] [address] Eosinophils (Bld) [#/Vol] 0.1 E9/L Normal 0.0-0.5 [facility] Comment on above: Performed By: #### 2 [id number] #### [facility] [address] [place] [address] Eosinophils/100 WBC (Bld) 0.7 % Normal 0.0-8.0 [facility] Comment on above: Performed By: #### 2 [id number] #### [facility] [address] [place] [address] Erythrocyte distribution width (RBC) [Ratio] 13.1 % Normal 10.9-14.2 [facility] Comment on above: Performed By: #### 2 [id number] #### [facility] [address] [place] [address] Hematocrit (Bld) [Volume fraction] 39.9 % Normal 34.0-46.0 [facility] Comment on above: Performed By: #### 2 [id number] #### [facility] [address] [place] [address] Hemoglobin (Bld) [Mass/Vol] 14.0 g/dL Normal 12.0-16.0 [facility] Comment on above: Performed By: #### 2 [id number] #### [facility] [address] [place] [address] Lymphocytes (Bld) [#/Vol] 1.8 E9/L Normal 1.0-4.0 [facility] Comment on above: Performed By: #### 2 [id number] #### [facility] [address] [place] [address] Lymphocytes/100 WBC (Bld) 18.5 % Normal 14.0-50.0 [facility] Comment on above: Performed By: #### 2 [id number] #### [facility] [address] [place] [address] MCH (RBC) [Entitic mass] 31.9 pg Normal 27.0-34.0 [facility] Comment on above: Performed By: #### 2 [id number] #### [facility] [address] [place] [address] MCHC (RBC) [Mass/Vol] 35.2 g/dL Normal 31.4-36.0 [facility] Comment on above: Performed By: #### 2 [id number] #### [facility] [address] [place] [address] MCV (RBC) [Entitic vol] 90.5 fL Normal 80.0-100.0 [facility] Comment on above: Performed By: #### 2 [id number] #### [facility] [address] [place] [address] Monocytes (Bld) [#/Vol] 0.5 E9/L Normal 0.2-1.0 [facility] Comment on above: Performed By: #### 2 [id number] #### [facility] [address] [place] [address] Neutrophils (Bld) [#/Vol] 7.3 E9/L Normal 2.0-7.5 [facility] Comment on above: Performed By: #### 2 [id number] #### [facility] [address] [place] [address] Neutrophils/100 WBC (Bld) 75.5 % High 36.0-75.0 [facility] Comment on above: Performed By: #### 2 [id number] #### [facility] [address] [place] [address] Platelet 415.0 E9/L Normal 150.0-500.0 [facility] Comment on above: Performed By: #### 2 [id number] #### [facility] [address] [place] [address] Platelet mean volume (Bld) [Entitic vol] 6.6 fL Normal 6.4-10.8 [facility] Comment on above: Performed By: #### 2 [id number] #### [facility] [address] [place] [address] RBC (Bld) [#/Vol] 4.4 E12/L Normal 4.3-5.9 [facility] Comment on above: Performed By: #### 2 [id number] #### [facility] [address] [place] [address] WBC corrected for nucl RBC Auto (Bld) [#/Vol] 9.7 E9/L Normal 4.0-11.0 [facility] Comment on above: Performed By: #### 2 [id number] #### [facility] [address] [place] [address] CHEMISTRYOrdered By: SYSTEM SYSTEM on 09-22-2023 Albumin [...] 2023 ED Clinical Summary ED Clinical Summary [address] [address] ED Clinical Summary Person Information Name: ERICKA ALEMAN Sofi/NewHusam Age: 22 Years : 2000 Sex: Female Language: Omani PCP: NONE, XXXX Marital Status: Single Visit [...] 09/22/2023 07:17:18 09/22/2023 07:17:18 09/22/2023 07:17:18 ADDRESS: [address] [place] [id number] PHYS DOC NOTES: MEDICAL INFORMATION: Prescriptions Given: New Medications [facility]/pharmacy #[id number], [address], [place] [id number], [phone] cephalexin (Keflex 500 mg Cap) 1 Capsules [...] Follow up: With: Address: When: Erinn PROCTOR [facility], [address] [place] [address] [place] [place] [address] Business (1) In 3 days 09/25/2023 DIAGNOSIS: Asymptomatic bacteriuria during ; Bacteriuria; Nausea and vomiting during Normal [facility] ED Note-Physicianon 09-22-19 ED Note-Physician ED Note-Physician [...] that she was prescribed Zofran by her BIOLOGY MANAGER but is still having nausea and vomiting [...] and Complexity of Problems Differential Diagnosis: [] [facility] Data External documents reviewed: N/A My [...] follow-up close with Dr. Proctor her established BIOLOGY MANAGER. Shared decision making: As above Code status: N/A Assessment/Plan Asymptomatic bacteriuria during (O99.891: Other specified diseases and conditions complicating ) Bacteriuria (R82.71: Bacteriuria) Nausea and vomiting during (O21.9: Vomiting of , unspecified) Orders: cephalexin, 500 mg = 1 cap(s), Oral, q12hr, X 5 day(s), # 10 cap(s), Refills(s) 0, Pharmacy: [facility]/pharmacy #[id number], 160, cm, 09/22/23 5:34:00 EDT, Height/Length Dosing, 72.4, kg, 09/22/23 5:34:00 EDT, Weight Dosing Lactated Ringers Injection, 1,000 mL, Soln-IV, IV, Once, Stop date 09/22/23 5:38:00 EDT, STAT, Start date 09/22/23 5:38:00 EDT, mL/hr, Infuse over 61, minute(s) promethazine, 12.5 mg = 1 tab(s), Oral, q8hr, PRN as needed for nausea/vomiting, # 12 tab(s), Refills(s) 0, Pharmacy: [facility]/pharmacy #[id number], 160, cm, 09/22/23 5:34:00 EDT, Height/Length [...] Cult Rflx Urine Culture Medications Administered Given [id number] [F], 1000 mL, IV Sodium Chloride 0.9% IV Kaylyn 50 mL [F] 50 mL + [id number] [F] 12.5 mg, IV Piggyback Disposition Plan Discharge Prescription List Prescriptions Keflex 500 mg Cap, 500 mg= 1 cap(s), Oral, q12hr promethazine 12.5 mg oral tablet, 12.5 mg= 1 tab(s), Oral, q8hr, PRN Follow-up With When Contact Information Erinn PROCTOR In 3 days 09/25/[address] , [address] [facility] (1) Additional Instructions: Patient Education Morning Sickness Asymptomatic Bacteriuria Problem List/Past Medical History Ongoing Anxiety History of cold sores Right otitis media Historical Denies Depression Procedure/Surgical History None. Medications Inpatient LR 1000 mL Bolus, 1000 mL, IV, Once promethazine additive 12.5 mg + Sodium Chloride 0.9% IV Kaylyn 50 (more content not included)... Normal [facility] Comment on above: Result Comment: Elec tronically Signed By: Rodrigo Berg DO\.br\Date and Time Signed: 09/22/23 06:44 EDT ED Patient Summaryon 024 ED Patient Summary ED Patient Summary [address] [address] Patient Discharge Instructions Person Information Name: ERICKA ALEMAN Age: 22 Years Arrival Date: 09/22/2023 05:24:18 Discharge Diagnosis: Asymptomatic bacteriuria during ; Bacteriuria; Nausea and vomiting during Primary Care Physician: NONE, XXXX Provider Information Primary Provider: Rodrigo Berg DO Advanced Tieing Machine Operator:None The exam and treatment you received in the Emergency Department were for an urgent problem and are not intended as complete care. It is important that you follow up with a doctor, nurse practitioner, or physician?s social science research assistant for ongoing care. If your symptoms become worse or you do not improve as expected and you are unable to reach your usual health care provider, you should return to the Emergency Department. We are available 24 hours a day. ERICKA ALEMAN has been given the following list of patient education materials, prescriptions and follow-up instructions: Follow-up Instructions: With: Address: When: [facility], [address] [place] [address] , [place] [address] Business (1) In 3 days 09/25/2023 In the event that this physician does not participate in your insurance network, please consult with your insurance company to find a nearby participating provider. Patient Education Materials: Morning Sickness; Asymptomatic Bacteriuria A MESSAGE TO ALL PATIENTS REGARDING OPIOIDS PRESCRIPTION OPIOIDS: WHAT YOU NEED TO KNOW Prescription opioids can be used to help relieve chxhxvpf-cv-khoedr pain and are often prescribed following a [...] tell y (more content not included)... Normal [facility] HEMATOLOGYOrdered By: SYSTEM SYSTEM on 09-22-2023 Basophils/100 [...] 11.0 E9/L Remisol Heme Hep Func Panelon 07-11-2024 Albumin [Mass/Vol] 4.2 g/dL Normal 3.3-5.0 [facility] Comment on above: Performed By: #### 2 [id number] #### [facility] [address] [place] [address] Albumin/Globulin (S) [Mass conc ratio] 1.3 Normal 1.1-2.2 [facility] Comment on above: Performed By: #### 2 [id number] #### [facility] [address] [place] [address] ALP [Catalytic activity/Vol] 68 Int._Unit/L Normal 21-98 [facility] Comment on above: Performed By: #### 2 [id number] #### [facility] [address] [place] [address] ALT No additional P-5'-P [Catalytic activity/Vol] 18 Int._Unit/L Normal 6-46 [facility] Comment on above: Performed By: #### 2 [id number] #### [facility] [address] [place] [address] AST [Catalytic activity/Vol] 17 Int._Unit/L Normal 5-43 [facility] Comment on above: Performed By: #### 2 [id number] #### [facility] [address] [place] [address] Bilirubin [Mass/Vol] 0.5 mg/dL Normal 0.0-1.1 [facility] Comment on above: Performed By: #### 2 [id number] #### [facility] [address] [place] [address] Bilirubin.direct [Mass/Vol] 0.1 mg/dL Normal 0.0-0.4 [facility] Comment on above: Performed By: #### 2 [id number] #### [facility] [address] [place] [address] Bilirubin.indirect [Mass or moles/Vol] 0.4 mg/dL Normal 0.1-0.9 [facility] Comment on above: Performed By: #### 2 [id number] #### [facility] [address] [place] [address] Globulin (S) [Mass/Vol] 3.2 g/dL Normal 1.4-4.[address] [facility] Comment on above: Performed By: #### 2 [id number] #### [facility] [address] [place] [address] Protein [Mass/Vol] 7.4 g/dL Normal 6.0-7.8 [facility] Comment on above: Performed By: #### 2 [id number] #### [facility] [address] [place] [address] Lipase Levelon 09-22-2023 Lipase [Catalytic activity/Vol] 30 U/L Normal 13-58 [facility] Comment on above: Performed By: #### 2 [id number] #### [facility] [address] [place] [address] UA with Cult Rflxon 09-22-19 24 Bacteria Auto Ql (U) 2+ /HPF Abnormal Trace Fish [facility] Comment on above: Performed By: #### 4 [id number] #### [facility] [address] [place] [address] Bilirubin Ql (U) Negative Normal Negative [facility] Comment on above: Performed By: #### 4 [id number] #### [facility] [address] [place] [address] Clarity (U) Ex.Turbid Abnormal Clear [facility] Comment on above: Performed By: #### 4 [id number] #### [facility] [address] [place] [address] Color (U) Yellow Normal Yellow [facility] Comment on above: Result Comment: Micr oscopic readings are only performed on those samples that meet specific criteria set forth by [facility]. Performed By: #### 4 [id number] #### [facility] [address] [place] [address] Epithelial cells.squamous Auto (Urine sed) [#/Area] >10 Invalid Interpretation Code [facility] Comment on above: Performed By: #### 4 [id number] #### [facility] [address] [place] [address] Glucose Ql (U) Negative Normal Negative [facility] Comment on above: Performed By: #### 4 [id number] #### [facility] [address] [place] [address] Hemoglobin Auto test strip (U) [Mass/Vol] Negative Normal Negative [facility] Comment on above: Performed By: #### 4 [id number] #### [facility] [address] [place] [address] Ketones Auto test strip Ql (U) 4+ mg/dL Abnormal Negative [facility] Comment on above: Performed By: #### 4 [id number] #### [facility] [address] [place] [address] Leukocyte esterase Auto test strip Ql (U) 250 Anitra/uL Abnormal Negative [facility] Comment on above: Performed By: #### 4 [id number] #### [facility] [address] [place] [address] Mucus Auto Ql (U) 3+ Abnormal Negative [facility] Comment on above: Performed By: #### 4 [id number] #### [facility] [address] [place] [address] Nitrite Auto test strip Ql (U) Negative Normal Negative [facility] Comment on above: Performed By: #### 4 [id number] #### [facility] [address] [place] [address] pH (U) 6.0 [pH] Invalid Interpretation Code 5.0-9.0 [facility] Comment on above: Performed By: #### 4 [id number] #### [facility] [address] [place] [address] Protein Ql (U) Trace Abnormal Negative [facility] Comment on above: Performed By: #### 4 [id number] #### [facility] [address] [place] [address] Specific gravity (U) [Rel density] 1.023 Invalid Interpretation Code 1.005-1.030 [facility] Comment on above: Performed By: #### 4 [id number] #### [facility] [address] [place] [address] Urobilinogen (U) [Mass/Vol] Negative Normal Negative [facility] Comment on above: Performed By: #### 4 [id number] #### [facility] [address] [place] [address] WBC Auto (Urine sed) [#/Area] 31-75 Abnormal 0-5 [facility] Comment on above: Performed By: #### 4 [id number] #### [facility] [address] [place] [address] Type of Urine collection method Clean Catch Normal [facility] Comment on above: Performed By: #### 4 [id number] #### [facility] [address] [place] [address] URINALYSISOrdered By: Jennifer Santacruz on 09-22-2023 Bacteria [...] that meet specific criteria set forth by [facility]. Epithelial cells.squamous Auto (Urine sed) [#/Area] [...] AM) Invalid Interpretation Code 1.005 - 1.030 FT UA Auto SS Urobilinogen (U) [Mass/Vol] Negative Normal Negativemg/d L FT UA Auto SS WBC Auto (Urine sed) [#/Area] 31-75 *ABN* (09/22/23 5:47 AM) Invalid Interpretation Code 0-5 [facility] UA Auto SS URINALYSISOrdered By: Rodrigo leung on 09-22-2023 UA Spec Desc Clean Catch (09/22/23 5:47 AM) Normal [facility] UA Auto SS Work Phone: eGFRon 09-22-2023 eGFR 128 mL/min/1.73 m2 Normal >=59 [facility] Comment on above: Order Comment: Order added by Discern Expert. Performed By: #### 1 [id number] #### [facility] [address] [place] [address] PAP [id number] 07-19-2023 Cytology report Cyto stain Doc (Cvx/Vag) Note Invalid Interpretation Code [facility] Comment on above: Result Comment: TEST S RESULT FLAG UNITS REF RANGE LAB Clinician Provided Cytology Information Source.............Endocervix No. of containers..01 ThinPrep Vial DIAGNOSIS: 01 NEGATIVE FOR INTRAEPITHELIAL LESION OR MALIGNANCY. Specimen adequacy: 01 Satisfactory for evaluation. Endocervical and/or squamous metaplastic cells (endocervical component) are present. Performed by: 01 Puneet Elise, Rider Ticket Worker ([facility]) . 01 Note: Note 01 The Pap smear is a screening test designed to aid in the detection of premalignant and malignant conditions of the uterine cervix. It is not a diagnostic procedure and should not be used as the sole means of detecting cervical cancer. Both false-positive and false-negative reports do occur. Test Methodology: Note 01 The [employer](R) Senior Program Analyst was unable to read this specimen. Therefore a manual review was performed. . 01 The HPV DNA reflex criteria were not met with this specimen result therefore, no HPV testing was performed. FLAG LEGEND: L-Low Normal,H-High Normal,LL-Alert Low,HH-Alert High <-Panic Low,>-Panic High,A-Abnormal,AA-Critical Abnormal Performed at: [address] [id number] Luz Marina Swann MD, Performed at: [facility] [id number] MD Shree Raza Performed By: #### 3 [id number] #### [facility] [address] [place] [address] PAP [id number] 07-16-2023 Collection Technique BRUSH-SPATULA Normal [facility] Comment on above: Performed By: #### 3 [id number] #### [facility] [address] [place] [address] Gynecological Body Site ENDOCERVIX Normal [facility] Comment on above: Performed By: #### 3 [id number] #### [facility] [address] [place] [address] Physician Orderon 07-14-2023 Physician Order [id number] Normal [facility] DHEA SERUMon 08-11-2021 Dehydroepiandrosterone (DHEA) 339 ng/dL Normal 31-701 [facility] Comment on above: Result Comment: Age [...] years 31 - 89 Performed By: #### Justin SERRANO. #### [facility] [address] [place] [address] Dr. Austen Hernadez DHEA-SULFATEon 08-01-2021 DHEA-Sulfate 247.0 ug/dL Normal 110.0-431.7 [facility] Comment on above: Performed By: #### Justin LEBLANC #### [facility] [address] [address] [address] Austen Hernadez FSHon 08-01-2021 FSH 1.6 mIU/mL Normal [facility] Comment on above: Result Comment: Adul t Female: Follicular phase 3.5 - 12.5 Ovulation phase 4.7 - 21.5 Luteal phase 1.7 - 7.7 Postmenopausal 25.8 - 134.8 Performed By: #### L BCFSH #### [facility] [address] [place] [address] Dr. Austen Hernadez LUTEINIZING HORMONE (LH)on 0 08-01-2021 LH 2.6 mIU/mL Normal [facility] Comment on above: Result Comment: Adul t Female: Follicular phase 2.4 - 12.6 Ovulation phase 14.0 - 95.6 Luteal phase 1.0 - 11.4 Postmenopausal 7.7 - 58.5 Performed By: #### L BCLH #### [facility] [address] [place] [address] Dr. Austen Hernadez CBC AUTO DIFFon 07-30-2021 BASO # 0.0 103/ul Normal 0.0-0.1 [facility] Comment on above: Performed By: #### C BC #### [facility] [address] [place] [address] Dr. Austen Hernadez Basophils/100 WBC (Bld) 0.2 % Normal 0.2-2.0 [facility] Comment on above: Performed By: #### C BC #### [facility] [address] [place] [address] Dr. Austen Hernadez EO # 0.1 103/ul Normal 0.0-0.7 [facility] Comment on above: Performed By: #### C BC #### [facility] [address] [place] [address] Dr. Austen Hernadez Eosinophils/100 WBC (Bld) 1.2 % Normal 0.9-7.0 [facility] Comment on above: Performed By: #### C BC #### [facility] [address] [place] [address] Dr. Austen Hernadez Erythrocyte distribution width (RBC) [Ratio] 12.1 % Normal 11.0-15.0 [facility] Comment on above: Performed By: #### C BC #### [facility] [address] [place] [address] Dr. Austen Hernadez Hematocrit (Bld) [Volume fraction] 40.2 % Normal 36.0-48.0 [facility] Comment on above: Performed By: #### C BC #### [facility] [address] [place] [address] Dr. Austen Hernadez Hemoglobin (Bld) [Mass/Vol] 13.3 g/dL Normal 12.0-16.0 [facility] Comment on above: Performed By: #### C BC #### [facility] [address] [place] [address] Dr. Austen Hernadez IG # 0.04 10e3/ul Critically high 0.00-0.03 [facility] Comment on above: Performed By: #### C BC #### [facility] [address] [place] [address] Dr. Austen Hernadez IG % 0.5 % Normal 0.0-0.5 [facility] Comment on above: Performed By: #### C BC #### [facility] [address] [place] [address] Dr. Austen Hernadez LYMPH # 1.7 103/ul Normal 1.2-3.8 [facility] Comment on above: Performed By: #### C BC #### [facility] [address] [place] [address] Dr. Austen Hernadez Lymphocytes/100 WBC (Bld) 20.1 % Critically low 20.5-6 0.0 [facility] Comment on above: Performed By: #### C BC #### [facility] [address] [place] [address] Dr. Austen Hernadez MANUAL DIFF REQ NO Normal [facility] Comment on above: Performed By: #### C BC #### [facility] [address] [place] [address] Dr. Austen Hernadez MCH (RBC) [Entitic mass] 30.0 pg Normal 26.7-34.0 [facility] Comment on above: Performed By: #### C BC #### [facility] [address] [place] [address] Dr. Austen Hernadez MCHC (RBC) [Mass/Vol] 33.1 g/dL Normal 29.9-35.2 [facility] Comment on above: Performed By: #### C BC #### [facility] [address] [place] [address] Dr. Austen Hernadez MCV (RBC) [Entitic vol] 90.5 fL Normal 81.0-99.0 [facility] Comment on above: Performed By: #### C BC #### [facility] [address] [place] [address] Dr. Austen Hernadez MONO # 0.5 103/ul Normal 0.3-0.8 [facility] Comment on above: Performed By: #### C BC #### [facility] [address] [place] [address] Dr. Austen Hernadez Monocytes/100 WBC (Bld) 5.8 % Normal 1.7-12.0 [facility] Comment on above: Performed By: #### C BC #### [facility] [address] [place] [address] Dr. Austen Hernadez NEUT # 6.2 103/ul Normal 1.4-6.5 [facility] Comment on above: Performed By: #### C BC #### [facility] [address] [place] [address] Dr. Austen Hernadez Neutrophils/100 WBC (Bld) 72.2 % Normal 43.0-75.0 [facility] Comment on above: Performed By: #### C BC #### [facility] [address] [place] [address] Dr. Austne Hernadez Platelet mean volume (Bld) [Entitic vol] 8.2 fL Critically low 9.5-13.5 [facility] Comment on above: Performed By: #### C BC #### [facility] [address] [place] [address] Dr. Austen Hernadez PLT 350 103/ul Normal 150-450 [facility] Comment on above: Performed By: #### C BC #### [facility] [address] [place] [address] Dr. Austen Hernadez RBC 4.44 106/ul Normal 4.20-5.40 [facility] Comment on above: Performed By: #### C BC #### [facility] [address] [place] [address] Dr. Austen Hernadez WBC 8.6 103/ul Normal 4.0-11.0 [facility] Comment on above: Performed By: #### C BC #### [facility] [address] [place] [address] Dr. Austen Hernadez GLYCOHEMOGLOBIN A1Con 2021 ADA RECOMMENDATION SEE BELOW Normal [facility] Comment on above: Result Comment: ADA RECOMMENDED LIMIT 4.0 - 6.0 ADA THERAPEUTIC TARGET < 7.0 ACTION SUGGESTED > 7.0 Performed By: #### A 1C #### [facility] [address] [place] [address] Dr. Austen Hernadez Glucose [Mass/Vol] 108 mg/dL Normal [facility] Comment on above: Performed By: #### A 1C #### [facility] [address] [place] [address] Dr. Austen Hernadez HbA1c (Bld) [Mass fraction] 5.4 % Normal 4.5-6.2 [facility] Comment on above: Performed By: #### A 1C #### [facility] [address] [place] [address] Dr. Austen Hernadez TSHon 07-30-2021 TSH 1.365 uIU/mL Normal 0.358-3.740 [facility] Comment on above: Performed By: #### T SH #### [facility] [address] [place] [address] Dr. Austen Hernadez TSH RANGE SEE BELOW Normal [facility] Comment on above: Result Comment: <0.3 4 UIU/ml HYPERTHYROID 0.34-5.60 UIU/ml EUTHYROID >5.60 UIU/ml HYPOTHYROID Performed By: #### T SH #### [facility] [address] [place] [address] Dr. Austen Hernadez US PELVIS AND TRANSVAGon [...] by: MACARENA GARCIA Date: 2021-07-30 15:31 Normal [facility] Vital Signs Date Time Vital Sign Value Performing Clinician Facility 12-08-2023 17:27-0400 Body height 160.02 cm [facility] 12-08-2023 17:27-0400 Body mass index (BMI) [Ratio] 28.3 kg/m2 [facility] 12-08-2023 17:27-0400 Body temperature 98.6 [degF] [facility] 12-08-2023 17:27-0400 Body weight 72.57 kg [facility] 12-08-2023 17:27-0400 Diastolic blood pressure 69 mm[Hg] [facility] 12-08-2023 17:27-0400 Heart rate 87 /min [facility] 12-08-2023 17:27-0400 SaO2% (BldA) [Mass fraction] 97 % [facility] 12-08-2023 17:27-0400 Systolic blood pressure 107 mm[Hg] [facility] 09-22-2023 07:00-0400 Diastolic blood pressure 85 mm[Hg] Rodrigo Morena [facility] 09-22-2023 07:00-0400 Heart rate 58 /min Rodrigo Morena [facility] 09-22-2023 07:00-0400 Mean blood pressure 94 mm[Hg] Rodrigo Morena [facility] 09-22-2023 07:00-0400 SaO2% (BldA) [Mass fraction] 100 % Rodrigo Morena [facility] 09-22-2023 07:00-0400 Systolic blood pressure 113 mm[Hg] Rodrigo Morena [facility] 09-22-2023 06:30-0400 Diastolic blood pressure 67 mm[Hg] Rodrigo Morena [facility] 09-22-2023 06:30-0400 Heart rate 62 /min Rodrigo Morena [facility] 09-22-2023 06:30-0400 Mean blood pressure 81 mm[Hg] Rodrigo Morena [facility] 09-22-2023 06:30-0400 Respiratory rate 16 /min Rodrigo Morena [facility] 09-22-2023 06:30-0400 SaO2% (BldA) [Mass fraction] 99 % Rodrigo Morena [facility] 09-22-2023 06:30-0400 Systolic blood pressure 110 mm[Hg] Rodrigo Morena [facility] 09-22-2023 05:52-0400 Diastolic blood pressure 66 mm[Hg] Rodrigo Morena [facility] 09-22-2023 05:52-0400 Heart rate 76 /min Rodrigo Morena [facility] 09-22-2023 05:52-0400 Mean blood pressure 80 mm[Hg] Rodrigo Morena [facility] 09-22-2023 05:52-0400 Respiratory rate 18 /min Rodrigo Morena [facility] 09-22-2023 05:52-0400 SaO2% (BldA) [Mass fraction] 98 % Rodrigo Morena [facility] 09-22-2023 05:52-0400 Systolic blood pressure 109 mm[Hg] Rodrigo Morena [facility] 09-22-2023 05:29-0400 Body temperature 98.96 [degF] Rodrigo Morena [facility] 09-22-2023 05:29-0400 Heart rate 67 /min Rodrigo Morena [facility] 07-18-2023 00:06-0400 Body height 160 cm Elva Azevedo MD Work Phone: [facility] 07-18-2023 00:06-0400 Body mass index (BMI) [Ratio] 30.11 kg/m2 Elva Azevedo MD Work Phone: [facility] 07-18-2023 00:06-0400 Body temperature 98.29 [degF] Elva Azevedo MD Work Phone: [facility] 07-18-2023 00:06-0400 Body weight 77.11 kg Elva Azevedo MD Work Phone: [facility] 07-18-2023 00:06-0400 Diastolic blood pressure 79 mm[Hg] [facility] 07-18-2023 00:06-0400 Heart rate 61 /min [facility] 07-18-2023 00:06-0400 Respiratory rate 16 /min Elva Azevedo MD Work Phone: [facility] 07-18-2023 00:06-0400 SaO2% (BldA) [Mass fraction] 96 % [facility]edo [facility] 07-18-2023 00:06-0400 Systolic blood pressure 132 mm[Hg] Elva Azevedo MD Work Phone: [facility] 07-07-2022 09:35-0400 Diastolic blood pressure 60 mm[Hg] Chris Banegas [facility] 07-07-2022 09:35-0400 Heart rate 83 /min Chris Banegas [facility] 07-07-2022 09:35-0400 SaO2% (BldA) [Mass fraction] 97 % Chris Banegas [facility] 07-07-2022 09:35-0400 Systolic blood pressure 100 mm[Hg] Chris Banegas [facility] Encounters Encounter Date Encounter Type Care Provider Facility Start: 12-08-2023 End: 12-08-2023 ambulatory [facility] Work Phone: Start: 12-08-2023 End: 12-08-2023 Patient encounter procedure [facility] Work Phone: Start: 11-16-2023 End: 11-16-2023 ambulatory ERINN HITESH Not Available Start: 10-17-2023 End: 10-17-2023 ambulatory ERINN HITESH Not Available Start: 09-29-2023 End: 09-29-2023 ambulatory REINN HITESH Not Available Start: 09-22-2023 End: 09-22-2023 Emergency department patient visit Rodrigo Berg [facility] Start: 07-18-2023 End: 07-18-2023 Emergency department patient visit [facility] Start: 07-18-2023 End: 07-18-2023 Emergency department patient visit Elva Cox [facility] CORMIER Work Phone: [facility] ED Comment on above: De Fuad's tenosy novitis, left (Primary Dx) Start: 07-14-2023 End: 07-14-2023 ambulatory Love J Spencer Facility:[facility] Start: 07-14-2023 End: 07-14-2023 Lab Drop off Love J Spencer [facility] Start: 06-15-2023 End: 06-15-2023 ambulatory ERINN HITESH Not Available Start: 07-07-2022 End: 07-07-2022 Patient encounter procedure Chris Banegas [facility] Start: 07-30-2021 End: 07-31-[address] ERINN PROCTOR Facility:[facility] Start: 07-15-2021 End: 07-15-2021 Lab Drop off Love Palmer [facility] Procedures Date Procedure Procedure Detail Performing Clinician Start: 12-08-2023 Quick Strep (POC) Plan of Treatment Date Care Activity Detail Author Start: 10-13-2023 Influenza vaccination Flu vacc ine (Season Ended) [facility] Start: 2017 DTaP/Tdap/Td vaccine (1 - Tdap) DTaP/Tdap/Td vaccine (1 - Tdap) [facility] Start: 06-10-1999 COVID-19 Vaccine (#1) COVID-19 Vacci ne (#1) [facility] Payers Date Payer Category Payer Unknown 2023 Unknown [id number] 1998 Unknown [id number] 2.16.84 [id number] 1998 Unknown [id number] 2.16.8 [id number] 1998 Unknown [id number] 2.16.8 [id number] 1998 Unknown [id number] 2.16.8 [id number] 1998 Unknown [id number] 2.16.8 [id number] 1998 Unknown [id number] 2.16.84 [id number] 1998 Unknown [id number] 2.16.84 [id number] 1998 Unknown [id number] 2.16.84 [id number] 1998 Unknown [id number] 2.16.84 [id number] 1959 Unknown [id number] Social History Date Type Detail Facility Start: 10-24-2020 End: 07-07-2022 Tobacco smoking status Never smoked tobacco (finding) [facility] Tobacco smoking status Never [facility]ath[facility] Start: 07-01-2012 Sex Assigned At Female F [place] Start: 07-18-2023 Tobacco use and exposure Smokeless tobacco non-user [facility] Start: 07-18-2023 Alcohol intake Ex-drinker (finding) [facility] Start: 07-01-2012 History of Social function [facility] Start: 1998 Sex Assigned At Not on file B [facility] Start: 1998 Sex Assigned At Female F [facility] Functional Status Date Assessment Result Facility 09-22-2023 Functional Status N/A [facility] 07-07-2022 Functional Status N/A [facility] Clinical Notes 07-15-2021 to [...] day(s), # 10 cap(s), Refills(s) 0, Pharmacy: [facility]/pharmacy #[id number], 160, cm, 09/22/23 5:34:00 EDT, Height/Length Dosing, 72.4, kg, 09/22/23 5:34:00 EDT, Weight Dosing Lactated Ringers Injection, 1,000 mL, Soln-IV, IV, Once, Stop date 09/22/23 5:38:00 EDT, STAT, Start date 09/22/23 5:38:00 EDT, mL/hr, Infuse over 61, minute(s) promethazine, 12.5 mg = 1 tab(s), Oral, q8hr, PRN as needed for nausea/vomiting, # 12 tab(s), Refills(s) 0, Pharmacy: [facility]/pharmacy #[id number], 160, cm, 09/22/23 5:34:00 EDT, [...] Diagnostic Tests Pending * Urine Culture 09/22/23 [facility] Hospital Discharge instructions Patient Education 09/22/2023 07:17:19 [...] Follow these instructions at home: Medicines Take your-nhy-plnpiaq and prescription medicines only as told by your health care provider. Do not use any prescription, vsni-gtf-rmqjngq, or herbal medicines for morning sickness without [...] provider. Document Revised: 10/13/2020 Document Reviewed: 09/22/2020 [employer] Patient Education 2022 [employer]. 09/22/2023 07:17:19 Asymptomatic Bacteriuria Asymptomatic Bacteriuria Asymptomatic [...] Follow these instructions at home: Medicines Take owhb-ikh-jqdqvze and prescription medicines only as told by [...] provider. Document Revised: 10/10/2020 Document Reviewed: 10/10/2020 [employer] Patient Education 2022 [employer]. Follow Up Care 09/22/2023 05:26:40 With:Erinn PROCTOR Address: [address] [place] [address]- Business (1) When:09/25/2023 06:28:14 [facility]07-11-2024 NoteED Patient Education Note Obstetrics and Gynecology [...] these instructions at home: Medicines ? Take hsfy-jol-abnjbez and prescription medicines only as told by your health care provider. Do not use any prescription, kcfw-rir-rennrxx, or herbal medicines for morning sickness without [...] provider. Document Revised: 10/13/2020 Document Reviewed: 09/22/2020 [employer] Patient Education ? 2022 [employer] Urology Asymptomatic Bacteriuria Asymptomatic bacteriuria is [...] You are an o (more content not included)...[facility] 07-18-2023 Hospital Discharge instructions* Discharge Instructions* Elva [...] sent through Care Everywhere. * Tenosynovitis: Wrist ([place]i) [facility] Patient Education 07/07/2022 10:03:07 [...] numbers. This can be done either in [place] ([place] or metric measurements. Note that charts and online BMI calculators are available to help you find your BMI quickly and easily without having to do these calculations yourself. To calculate your BMI in [place] ([place] measurements: 1.Measure your weight in pounds [...] Centers for Disease Control and Prevention: www.cdc.gov [place] Heart Association: www.heart.org National Heart, Lung, and Blood [address]: www.nhlbi.nih.gov Summary Body mass index (BMI) is a number that is calculated from a person's weight and height. BMI may help estimate how much of a person's weight is composed of fat. BMI can help identify thosewho may be at higher risk for certain medical problems. BMI can be measured using [place]i measurements or metric measurements. BMI charts are used to identify whether you are underweight, normal weight, overweight, or obese. This information is not intended to replace advice given to you by your health care provider. Make sure you discuss any questions you have with your health care provider. Document Revised: 11/21/2019 Document Reviewed: 09/28/2019 [employer] Patient Education 2022 [employer]. 07/07/2022 10:02:02 Tendinitis, Arzh-el-Xnle Tendinitis Tendinitis is irritation and swelling (inflammation) [...] only as told by your doctor. Take lniu-kor-aaarort and prescription medicines only as told by [...] provider. Document Revised: 11/05/2021 Document Reviewed: 11/05/2021 [employer] Patient Education 2022 [employer]. Follow Up Care 07/07/2022 09:19:19 With:NONE, XXXX Address: [phone] When: Unknown [facility] 05-04-2022 Evaluation + Plan note Diagnostic Tests Pending * Chlamydia/Gonococcus, KESHIA 07/15/21 [facility]* Diagnosis De Quervain's tenosynovitis, left- Primary Radial styloid tenosynovitis documented [facility] noteNo assessment information available [facility] Work Phone: Hospital course Narrative No data available for this section [facility] No data available for this section [facility] No data available for this section [facility] Reason for referral (narrative) Referred by: Chris Banegas PA-C [facility] Summary Purpose Family [...] FoundNo Family History Records Found Advance Directives Advance Directive Response Recorded Date/ Time Advance Directives No November 5:22pm Chief Complaint and Reason for Visit Chief Complaint congestion, ear pain Additional Source Comments INFORMATION SOURCE (unrecogn ized section and content) DATE CREATED AUTHOR 08/12/2021 [facility] [place] [facility] DATE CREATED AUTHOR AUTHOR'S ORGANIZ ATION 07/18/2023 [facility] DATE CREATED AUTHOR AUTHOR'S ORGANIZ ATION 09/28/2023 [facility] DATE CREATED AUTHOR AUTHOR'S ORGANIZ ATION 09/29/2023 [facility] DATE CREATED AUTHOR AUTHOR'S ORGANIZ ATION 11/18/2023 [facility] Reason for Visit (unrecogniz ed section and content) Reason Comments Wrist Injury Patient arrived to E with complaints of left wrist injury. 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 had issues with [...] (Given - Provid er: Gabriela Mcdermott RN) Care Teams (unrecognized sec tion and content) Team Status: Active Member Role Status Dates NON STAFF Primary Care Provider Active Team Status: Inactive Member Role Status Dates Christopher Ma PA-C Attending Provider Active St art: December 08, 2023 End: December 08, 2023 NON STAFF Primary Care Provider Active Start: December 08, 2023 End: December 08, 2023 Goals (unrecognized section and content) Goals may be documented in a n alternate section FOR RECORDS PERTAINING TO PATIENTS WHO ARE [...] BE BASED ON THE PRIMARY CLINICAL RECORDS. [facility] [employer] provides no warranty or guarantee of the accuracy or completeness of information in this document.
== END 2023-12-14 12:56 | disposition home or self-care (01) ==
LOC: NOMS 12:56
PROVIDERS: Visit Provider Obstetrics & Gynecology
DX: O44.22 Partial placenta previa NOS or without hemorrhage, second trimester (principal); Z3A.20 20 weeks gestation of pregnancy; Z36.89 Encounter for other specified antenatal screening
CPT/HCPCS: 76805; 76817

== ENCOUNTER 2024-01-28 10:04 | Outpatient (OUT) | payer BC, SELFPAY ==
--- OUTSIDE RECORDS SUMMARY | 2024-01-28 10:08 | XMS_ITS | CCD ---
Author Organization [facility] Care Team Providers Care Radar Air Traffic Controller Name Role Phone NONE, XXXX Primary Care Physician Unavailab thee PROCTOR, DR PLASENCIA Attending Unavailable HITESH, DR PLASENCIA Consulting Unavailable HITESH, DR PLASENCIA Admitting Unavailable ZIJEAN, DR MACARENA Kim Consulting Unavailable Unavailable Primary Care Provider UnavailELVA Caldera Attending Unavailable DO Rodrigo Berg Attending Unavailable Love Palmer Attending Unavailable Love Palmer Admitting Unavailable DO Rodrigo Berg Attending Unavailable Unallocated , Noms Provider Primary Care Provi que Unavailable Primary Care Provider UnavailERINN Domínguez Referring Unavailable MOY YORK Attending Unavailable ERINN PROCTOR Attending Unavailable ERINN PROCTOR Attending Unavailable ERINN PROCTOR Attending Unavailable ERINN PROCTOR Attending Unavailable VALENTINA CORDOVA Attending Unavailable Medications Current Medications Medication Drug Class(es) Dates Sig (Normalized) Sig (Original) amoxicillin 875 mg oral tablet (5 sources) Penicillin-class Antibacterial Start: 12-08-2023 take 1 tablet by mouth in the morning amoxicillin (Amoxil) 875 MG tablet Take 875 mg by mouth in the morning and 875 mg before bedtime. 12/08/2023 Active cephalexin 500 mg oral capsule (1 source) Cephalosporin Antibacterial Start: 09-22-2023 End: 09-27-2023 take 1 capsule by mouth every twelve hours Keflex 500 mg Cap 500 mg = 1 cap(s), Oral, q12hr, X 5 day(s), # 10 cap(s), Refills(s) 0, Pharmacy: [facility]/pharmacy #[id number], 160, cm, 09/22/23 5:34:00 EDT, Height/Length Dosing, 72.4, kg, 07/11/24 5:34:00 EDT, Weight Dosing Start Date: 09/22/23 Stop Date: 09/27/23 Status: Ordered citalopram 20 mg oral tablet (4 sources) Serotonin Reuptake Inhibitor Start: 03-12-2019 take 1 tablet by mouth once daily citalopram 20 mg Tab TAKE 1 TABLET BY MOUTH EVERY DAY Start Date: 03/12/19 Status: Ordered 21 day ethinyl estradiol 0.116556 mg/hr / etonogestrel 0.005 mg/hr vaginal system [...] NEW RING Start Date: 03/12/19 Status: Ordered ondansetron 4 mg disintegrating oral tablet (9 sources) Serotonin-3 Receptor Antagonist Start: 11-15-2023 ondansetron ODT (Zofran-ODT) 4 MG disintegrating tablet 11/15/2023 Active take 1 tablet by titi th every eight hours as needed for nausea and vomiting ondansetron (ZOFRAN) 4 mg tablet Take 1 tablet (4 mg total) by mouth every 8 (eight) hours as needed for nausea or vomiting. Active Pnv #32-Budn-Uwwjf Acid-Omega3 (1 source) Start: 12-08-2023 Pnv #80-Tdzy-Ajfok Acid-Omega3 Active CAP PO December 08, 2023 12:00am predniSONE 20 mg oral tablet (1 source) Start: 07-07-2022 End: 07-12-2022 take 2 tablets by mouth once daily predniSONE 20 mg Tab 40 mg = 2 tab(s), Oral, Daily, X 5 day(s), # 10 tab(s), Refills(s) 0, Pharmacy: [facility]/pharmacy #[id number], 160, cm, 07/07/22 9:38:00 EDT, Height/Length Dosing, 90, kg, 07/07/22 9:38:00 EDT, Weight Dosing Start Date: 07/07/22 Stop Date: 07/12/22 Status: Ordered vit no.124/iron/folic ( VITAMIN ORAL) (2 sources) vit no.124/iron/folic ( VITAMIN ORAL) Take by mouth. Active promethazine hydrochloride 12.5 mg oral tablet (1 source) Phenothiazine Start: 09-22-2023 take 1 tablet by mouth every eight hours as needed for nausea promethazine 12.5 mg oral tablet 12.5 mg = 1 tab(s), Oral, q8hr, PRN as needed for nausea/vomiting, # 12 tab(s), Refills(s) 0, Pharmacy: [facility]/pharmacy #[id number], 160, cm, 09/22/23 5:34:00 EDT, Height/Length Dosing, 72.4, kg, 09/22/23 5:34:00 EDT, Weight Dosing Start Date: 09/22/23 Status: Ordered valACYclovir 500 mg oral tablet (15 sources) Herpesvirus Nucleoside Analog DNA Polymerase Inhibitor, [...] Drug Class(es) Dates Sig (Normalized) Sig (Original) azithromycin 250 mg oral tablet (2 sources) Macrolide Antimicrobial Start: 11-22-2023 End: 12-14-2023 azithromycin (Zithromax Z-Jensen) 250 MG tablet Indications: URI, acute As directed 6 tablet 11/22/2023 12/14/2023 Discontinued 1 ml ketorolac tromethamine 30 mg/ml cartridge (1 source) Nonsteroidal Anti-inflammatory Drug, Cyclooxygenase Inhibitor Start: 07-18-2023 End: 07-18-2023 ketorolac (TORADOL) injection 30 mg Problems Active Problems Problem Classification Problem Date Documented Date Episodic/Chronic Anxiety disorders (4 sources) Anxiety 03-12-2019 Chronic Genitourinary symptoms and ill-defined conditions (1 source) Bacteriuria; Translations: [Bacteriuria] Onset: 09-22-2023 Episodic Hemorrhage during ; abruptio placenta; placenta previa (10 sources) Placenta previa partialis; Translations: [Partial placenta previa NOS or without hemorrhage, unspecified trimester] Onset: 12-16-2023 12-14-2023 Episodic Mood disorders (4 sources) Depression 05-25-2013 Chronic Other circulatory disease (1 source) History of clinical finding in subject; Translations: [Personal history of other diseases of the circulatory system] 01-02-2024 Episodic Other complications of (1 source) Vomiting of [...] (BMI) 35.0-35.9, adult] Onset: 07-07-2022 Chronic Other and delivery including normal (4 sources) Second trimester ; Translations: [Encounter for supervision of normal , unspecified, second trimester] 12-14-2023 Episodic Other screening for suspected conditions (not mental disorders or infectious disease) (7 sources) No current problems or disability; Translations: [Encounter for other specified screening] Onset: 01-02-2024 08-30-2013 Episodic Otitis media and related conditions (4 sources) Otitis media 03-12-2019 Episodic Residual codes; unclassified (2 sources) Gestation period, 20 weeks; Translations: [20 weeks gestation of ] 12-14-2023 Episodic Residual codes; unclassified (2 sources) Gestation period, 24 weeks; Translations: [24 weeks gestation of ] 01-11-2024 Episodic Unclassified (5 sources) OB Reminders Onset: 09-29-2023 09-29-2023 Unclassified (1 source) partial placenta previa Onset: 01-02-2024 Viral infection (1 source) Anogenital herpesviral infection; 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, 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 Past or Other Problems Problem Classification Problem Date Documented Da te Episodic/Chronic Unclassified (1 source) History of clinical finding in subject 01-02-2024 Results Test Name Value Interpretation Reference Range Facility Urinalysis macro (dipstick) panel (U)on 01-11-2024 Bilirubin, UA Negative Negative - 4(70) +++ mg/dL [facility] Blood, UA Negative Negative - 50 Raul/mcL [facility] Clarity, UA Clear [facility] Color, UA Yellow [facility] Glucose, UA Negative Negative - 2000(110) ++++ mg/dL [facility] Interpretation and review of laboratory results Normal [facility] Ketones, UA Negative Negative - 160(16) ++++ mg/dL [facility] Leukocytes, UA Negative Negative - 500+++ Anitra/mcL [facility] Nitrite, UA Negative Negative - Positive [facility] pH, UA 55 5 - 9 [facility] Protein, UA Negative Negative - 1999(20) ++++ mg/dL [facility] Spec Grav, UA 1.02 1 - 1.03 [facility] Urobilinogen, UA 1.0 0.2 - 12 mg/dL [facility] Urinalysis macro (dipstick) panel (U)on 12-14-2023 Bilirubin, UA Negative Negative - 4(70) +++ mg/dL [facility] Blood, UA Negative Negative - 50 Raul/mcL [facility] Clarity, UA Clear [facility] Color, UA Yellow [facility] Glucose, UA Negative Negative - 1999(110) ++++ mg/dL [facility] Interpretation and review of laboratory results Normal [facility] Ketones, UA Negative Negative - 160(16) ++++ mg/dL [facility] Leukocytes, UA Negative Negative - 500+++ Anitra/mcL [facility] Nitrite, UA Negative Negative - Positive [facility] pH, UA 5.5 5 - 9 [facility] Protein, UA Negative Negative - 1999(20) ++++ mg/dL [facility] Spec Grav, UA 1.025 1 - 1.03 [facility] Urobilinogen, UA 0.2 0.2 - 12 mg/dL [facility] No Panel InformationOrdered By: Christopher Ma on 12-08-2023 Quick Strep (POC) [facility] C Urineon 09-24-2023 Bacteria identified Cx [...] Locations R1: This test was performed at: [facility], [address] [place] [address], [address]- , , Normal [facility] Comment on above: Performed By: #### 2 [id number] #### [facility] [address] [place] [address] BMPon 09-22-2023 Anion gap [Moles/Vol] 13 mmol/L Normal 6-16 [facility] Comment on above: Performed By: #### 2 [id number] #### [facility] [address] [place] [address] Calcium [Mass/Vol] 8.9 mg/dL Normal 8.9-11.1 [facility] Comment on above: Performed By: #### 2 [id number] #### [facility] [address] [place] [address] Chloride [Moles/Vol] 103 mmol/L Normal 101-111 [facility] Comment on above: Performed By: #### 2 [id number] #### [facility] [address] [place] [address] CO2 [Moles/Vol] 21 mmol/L Normal 21-31 [facility] Comment on above: Performed By: #### 2 [id number] #### [facility] [address] [place] [address] Creatinine [Mass/Vol] 0.6 mg/dL Normal 0.5-1.3 [facility] Comment on above: Performed By: #### 2 [id number] #### [facility] [address] [place] [address] Glucose [Mass/Vol] 89 mg/dL Normal 55-199 [facility] Comment on above: Performed By: #### 2 [id number] #### [facility] [address] [place] [address] Potassium [Moles/Vol] 3.5 mmol/L Normal 3.5-5.3 [facility] Comment on above: Performed By: #### 2 [id number] #### [facility] [address] [place] [address] Sodium [Moles/Vol] 133 mmol/L Low 135-145 [facility] Comment on above: Performed By: #### 2 [id number] #### [facility] [address] [place] [address] Urea nitrogen [Mass/Vol] 5 mg/dL Normal 5-21 [facility] Comment on above: Performed By: #### 2 [id number] #### [facility] [address] [place] [address] Urea nitrogen/Creatinine [Mass ratio] 8 No Units Low 10-20 [facility] Comment on above: Performed By: #### 2 [id number] #### [facility] [address] [place] [address] CBC w/ Auto Diffon 4 Basophils/100 WBC (Bld) 0.2 % Normal 0.0-2.0 [facility] Comment on above: Performed By: #### 2 [id number] #### [facility] [address] [place] [address] Basophils/Leukocytes Auto (Bld) [Pure # fraction] 0.0 E9/L Normal 0.0-0.2 [facility] Comment on above: Performed By: #### 2 [id number] #### [facility] [address] [place] [address] Eosinophils (Bld) [#/Vol] 0.1 E9/L Normal 0.0-0.5 [facility] Comment on above: Performed By: #### 2 [id number] #### [facility] [address] [place] [address] Eosinophils/100 WBC (Bld) 0.7 % Normal 0.0-8.0 [facility] Comment on above: Performed By: #### 2 [id number] #### [facility] [address] [place] [address] Erythrocyte distribution width (RBC) [Ratio] 13.1 % Normal 10.9-14.2 [facility] Comment on above: Performed By: #### 2 [id number] #### [facility] [address] [place] [address] Hematocrit (Bld) [Volume fraction] 39.9 % Normal 34.0-46.0 [facility] Comment on above: Performed By: #### 2 [id number] #### [facility] [address] [place] [address] Hemoglobin (Bld) [Mass/Vol] 14.0 g/dL Normal 12.0-16.0 [facility] Comment on above: Performed By: #### 2 [id number] #### [facility] [address] [place] [address] Lymphocytes (Bld) [#/Vol] 1.8 E9/L Normal 1.0-4.0 [facility] Comment on above: Performed By: #### 2 [id number] #### [facility] [address] [place] [address] Lymphocytes/100 WBC (Bld) 18.5 % Normal 14.0-50.0 [facility] Comment on above: Performed By: #### 2 [id number] #### [facility] [address] [place] [address] MCH (RBC) [Entitic mass] 31.9 pg Normal 27.0-34.0 [facility] Comment on above: Performed By: #### 2 [id number] #### [facility] [address] [place] [address] MCHC (RBC) [Mass/Vol] 35.2 g/dL Normal 31.4-36.0 [facility] Comment on above: Performed By: #### 2 [id number] #### [facility] [address] [place] [address] MCV (RBC) [Entitic vol] 90.5 fL Normal 80.0-100.0 [facility] Comment on above: Performed By: #### 2 [id number] #### [facility] [address] [place] [address] Monocytes (Bld) [#/Vol] 0.5 E9/L Normal 0.2-1.0 [facility] Comment on above: Performed By: #### 2 [id number] #### [facility] [address] [place] [address] Neutrophils (Bld) [#/Vol] 7.3 E9/L Normal 2.0-7.5 [facility] Comment on above: Performed By: #### 2 975977 #### [facility] [address] [place] [address] Neutrophils/100 WBC (Bld) 75.5 % High 36.0-75.0 [facility] Comment on above: Performed By: #### 2 [id number] #### [facility] [address] [place] [address] Platelet 415.0 E9/L Normal 150.0-500.0 [facility] Comment on above: Performed By: #### 2 595219 #### [facility] [address] [place] [address] Platelet mean volume (Bld) [Entitic vol] 6.6 fL Normal 6.4-10.8 [facility] Comment on above: Performed By: #### 2 775253 #### [facility] [address] [place] [address] RBC (Bld) [#/Vol] 4.4 E12/L Normal 4.3-5.9 [facility] Comment on above: Performed By: #### 2 949452 #### [facility] [address] [place] [address] WBC corrected for nucl RBC Auto (Bld) [#/Vol] 9.7 E9/L Normal 4.0-11.0 [facility] Comment on above: Performed By: #### 2 [id number] #### [facility] [address] [place] [address] CHEMISTRYOrdered By: SYSTEM SYSTEM on 09-22-2023 Albumin [...] 2023 ED Clinical Summary ED Clinical Summary [address] [address] ED Clinical Summary Person Information Name: ERICKA ALEMAN [place] Age: 22 Years : 2000 Sex: Female Language: Anguillan PCP: NONE, XXXX Marital Status: Single Visit [...] 09/22/2023 07:17:18 09/22/2023 07:17:18 09/22/2023 07:17:18 ADDRESS: [address] [place] [id number] PHYS DOC NOTES: MEDICAL INFORMATION: Prescriptions Given: New Medications [facility]/pharmacy #[id number], [address] [place], [place] [id number], [phone] cephalexin (Keflex 500 mg Cap) 1 Capsules [...] Bacteriuria Follow up: With: Address: When: Erinn HURSTO [facility], [address] [place] [address] [place] [address] Business (1) In 3 days 09/25/2023 DIAGNOSIS: Asymptomatic bacteriuria during ; Bacteriuria; Nausea and vomiting during Normal [facility] ED Note-Physicianon 09-22-19 24 ED Note-Physician ED Note-Physician Basic Information Time Seen: Rodrigo Berg DOMelina 09/22/2023 05:27 Chief Complaint Pt arrives from [...] that she was prescribed Zofran by her WAITER/WAIT[employer]ESS [employer] CLASS but is still having nausea and vomiting [...] and Complexity of Problems Differential Diagnosis: [] [facility] Data External documents reviewed: N/A My [...] follow-up close with Dr. Proctor her established WAITER/[employer]ESS [employer]. Shared decision making: As above Code status: N/A Assessment/Plan Asymptomatic bacteriuria during (O99.891: Other specified diseases and conditions complicating ) Bacteriuria (R82.71: Bacteriuria) Nausea and vomiting during (O21.9: Vomiting of , unspecified) Orders: cephalexin, 500 mg = 1 cap(s), Oral, q12hr, X 5 day(s), # 10 cap(s), Refills(s) 0, Pharmacy: [facility]/pharmacy #[id number], 160, cm, 09/22/23 5:34:00 EDT, Height/Length Dosing, 72.4, kg, 09/22/23 5:34:00 EDT, Weight Dosing Lactated Ringers Injection, 1,000 mL, Soln-IV, IV, Once, Stop date 09/22/23 5:38:00 EDT, STAT, Start date 09/22/23 5:38:00 EDT, mL/hr, Infuse over 61, minute(s) promethazine, 12.5 mg = 1 tab(s), Oral, q8hr, PRN as needed for nausea/vomiting, # 12 tab(s), Refills(s) 0, Pharmacy: [facility]/pharmacy #[id number], 160, cm, 09/22/23 5:34:00 EDT, Height/Length [...] Cult Rflx Urine Culture Medications Administered Given [id number] [F], 1000 mL, IV Sodium Chloride 0.9% IV Kaylyn 50 mL [F] 50 mL + [id number] [F] 12.5 mg, IV Piggyback Disposition Plan Discharge Prescription List Prescriptions Keflex 500 mg Cap, 500 mg= 1 cap(s), Oral, q12hr promethazine 12.5 mg oral tablet, 12.5 mg= 1 tab(s), Oral, q8hr, PRN Follow-up With When Contact Information Erinn PROCTOR In 3 days 09/25/[address] , [place] [address]- Business (1) Additional Instructions: Patient Education Morning Sickness Asymptomatic Bacteriuria Problem List/Past Medical History Ongoing Anxiety History of cold sores Right otitis media Historical Denies Depression Procedure/Surgical History None. Medications Inpatient LR 1000 mL Bolus, 1000 mL, IV, Once promethazine additive 12.5 mg + Sodium Chloride 0.9% IV Kaylyn 50 (more content not included)... Normal [facility] Comment on above: Result Comment: Elec tronically Signed By: Rodrigo Berg DO\.br\Date and Time Signed: 09/22/23 06:44 EDT ED Patient Summaryon 024 ED Patient Summary ED Patient Summary [address] [address] Patient Discharge Instructions Person Information Name: ERICKA ALEMAN Age: 22 Years Arrival Date: 09/22/2023 05:24:18 Discharge Diagnosis: Asymptomatic bacteriuria during ; Bacteriuria; Nausea and vomiting during Primary Care Physician: NONE, XXXX Provider Information Primary Provider: Rodrigo Berg DO Advanced Inventory Control Manager:None The exam and treatment you received in the Emergency Department were for an urgent problem and are not intended as complete care. It is important that you follow up with a doctor, nurse practitioner, or physician?s clinical trial assistant for ongoing care. If your symptoms become worse or you do not improve as expected and you are unable to reach your usual health care provider, you should return to the Emergency Department. We are available 24 hours a day. ERICKA ALEMAN has been given the following list of patient education materials, prescriptions and follow-up instructions: Follow-up Instructions: With: Address: When: [facility], [address] [place] [address] , [place] [address] Business (1) In 3 days 09/25/2023 In the event that this physician does not participate in your insurance network, please consult with your insurance company to find a nearby participating provider. Patient Education Materials: Morning Sickness; Asymptomatic Bacteriuria A MESSAGE TO ALL PATIENTS REGARDING OPIOIDS PRESCRIPTION OPIOIDS: WHAT YOU NEED TO KNOW Prescription opioids can be used to help relieve banaqtxq-uh-jtnllr pain and are often prescribed following a [...] tell y (more content not included)... Normal [facility] HEMATOLOGYOrdered By: SYSTEM SYSTEM on 09-22-2023 Basophils/100 [...] 09-22-2023 Albumin [Mass/Vol] 4.2 g/dL Normal 3.3-5.0 [facility] Comment on above: Performed By: #### 2 [id number] #### [facility] [address] [place] [address] Albumin/Globulin (S) [Mass conc ratio] 1.3 Normal 1.1-2.2 [facility] Comment on above: Performed By: #### 2 [id number] #### [facility] [address] [place] [address] ALP [Catalytic activity/Vol] 68 Int._Unit/L Normal 21-98 [facility] Comment on above: Performed By: #### 2 [id number] #### [facility] [address] [place] [address] ALT No additional P-5'-P [Catalytic activity/Vol] 18 Int._Unit/L Normal 6-46 [facility] Comment on above: Performed By: #### 2 [id number] #### [facility] [address] [place] [address] AST [Catalytic activity/Vol] 17 Int._Unit/L Normal 5-43 [facility] Comment on above: Performed By: #### 2 [id number] #### [facility] [address] [place] [address] Bilirubin [Mass/Vol] 0.5 mg/dL Normal 0.0-1.1 [facility] Comment on above: Performed By: #### 2 [id number] #### [facility] [address] [place] [address] Bilirubin.direct [Mass/Vol] 0.1 mg/dL Normal 0.0-0.4 [facility] Comment on above: Performed By: #### 2 [id number] #### [facility] [address] [place] [address] Bilirubin.indirect [Mass or moles/Vol] 0.4 mg/dL Normal 0.1-0.9 [facility] Comment on above: Performed By: #### 2 [id number] #### [facility] [address] [place] [address] Globulin (S) [Mass/Vol] 3.2 g/dL Normal 1.4-4.0 [facility] Comment on above: Performed By: #### 2 [id number] #### [facility] [address] [place] [address] Protein [Mass/Vol] 7.4 g/dL Normal 6.0-7.8 [facility] Comment on above: Performed By: #### 2 [id number] #### [facility] [address] [place] [address] Lipase Levelon 09-22-2023 Lipase [Catalytic activity/Vol] 30 U/L Normal 13-58 [facility] Comment on above: Performed By: #### 2 [id number] #### [facility] [address] [place] [address] UA with Cult Rflxon 09-22-19 24 Bacteria Auto Ql (U) 2+ /HPF Abnormal Trace Fish [facility] Comment on above: Performed By: #### 4 [id number] #### [facility] [address] [place] [address] Bilirubin Ql (U) Negative Normal Negative [facility] Comment on above: Performed By: #### 4 [id number] #### [facility] [address] [place] [address] Clarity (U) Ex.Turbid Abnormal Clear [facility] Comment on above: Performed By: #### 4 [id number] #### [facility] [address] [place] [address] Color (U) Yellow Normal Yellow [facility] Comment on above: Result Comment: Micr oscopic readings are only performed on those samples that meet specific criteria set forth by [facility]. Performed By: #### 4 [id number] #### [facility] [address] [place] [address] Epithelial cells.squamous Auto (Urine sed) [#/Area] >10 Invalid Interpretation Code [facility] Comment on above: Performed By: #### 4 [id number] #### [facility] [address] [place] [address] Glucose Ql (U) Negative Normal Negative [facility] Comment on above: Performed By: #### 4 [id number] #### [facility] [address] [place] [address] Hemoglobin Auto test strip (U) [Mass/Vol] Negative Normal Negative [facility] Comment on above: Performed By: #### 4 [id number] #### [facility] [address] [place] [address] Ketones Auto test strip Ql (U) 4+ mg/dL Abnormal Negative [facility] Comment on above: Performed By: #### 4 [id number] #### [facility] [address] [place] [address] Leukocyte esterase Auto test strip Ql (U) 250 Naitra/uL Abnormal Negative [facility] Comment on above: Performed By: #### 4 [id number] #### [facility] [address] [place] [address] Mucus Auto Ql (U) 3+ Abnormal Negative [facility] Comment on above: Performed By: #### 4 [id number] #### [facility] [address] [place] [address] Nitrite Auto test strip Ql (U) Negative Normal Negative [facility] Comment on above: Performed By: #### 4 [id number] #### [facility] [address] [place] [address] pH (U) 6.0 [pH] Invalid Interpretation Code 5.0-9.0 [facility] Comment on above: Performed By: #### 4 [id number] #### [facility] [address] [place] [address] Protein Ql (U) Trace Abnormal Negative [facility] Comment on above: Performed By: #### 4 [id number] #### [facility] [address] [place] [address] Specific gravity (U) [Rel density] 1.023 Invalid Interpretation Code 1.005-1.030 [facility] Comment on above: Performed By: #### 4 [id number] #### [facility] [address] [place] [address] Urobilinogen (U) [Mass/Vol] Negative Normal Negative [facility] Comment on above: Performed By: #### 4 [id number] #### [facility] [address] [place] [address] WBC Auto (Urine sed) [#/Area] 31-75 Abnormal 0-5 [facility] Comment on above: Performed By: #### 4 [id number] #### [facility] [address] [place] [address] Type of Urine collection method Clean Catch Normal [facility] Comment on above: Performed By: #### 4 [id number] #### [facility] [address] [place] [address] URINALYSISOrdered By: Jennifer Santacruz on 09-22-2023 Bacteria Auto Ql (U) 2+ /HPF Invalid Interpretation Code Trace/HPF [facility] UA Auto SS Bilirubin Ql (U) Negative Normal Negativemg/ d L [facility] UA Auto SS Clarity (U) Ex.Turbid *ABN* (09/22/23 5:47 AM) Invalid Interpretation Code Clear [facility] UA Auto SS Color (U) Yellow 1 (09/22/23 5:47 AM) Normal Yellow [facility] UA Auto SS Comment on above: Interpretive Data: M icroscopic readings are only performed on those samples that meet specific criteria set forth by [facility]. Epithelial cells.squamous Auto (Urine sed) [#/Area] >10 graded/HPF Invalid Interpretation Code [facility] UA Auto SS Glucose Ql (U) Negative Normal Negativemg/d L [facility] UA Auto SS Hemoglobin Auto test strip [...] AM) Invalid Interpretation Code 1.005 - 1.030 [facility] UA Auto SS Urobilinogen (U) [Mass/Vol] Negative Normal Negativemg/d L [facility] UA Auto SS WBC Auto (Urine sed) [#/Area] 31-75 *ABN* (09/22/23 5:47 AM) Invalid Interpretation Code 0-5 [facility] UA Auto SS URINALYSISOrdered By: Rodrigo leung on 09-22-2023 UA Spec Desc Clean Catch (09/22/23 5:47 AM) Normal [facility] UA Auto SS Work Phone: eGFRon 09-22-2023 eGFR 128 mL/min/1.73 m2 Normal >=59 [facility] Comment on above: Order Comment: Order added by Discern Expert. Performed By: #### 1 [id number] #### [facility] [address] [place] [address] PAP [id number] 07-19-2023 Cytology report Cyto stain Doc (Cvx/Vag) Note Invalid Interpretation Code [facility] Comment on above: Result Comment: TEST S RESULT FLAG UNITS REF RANGE LAB Clinician Provided Cytology Information Source.............Endocervix No. of containers..01 ThinPrep Vial DIAGNOSIS: 01 NEGATIVE FOR INTRAEPITHELIAL LESION OR MALIGNANCY. Specimen adequacy: 01 Satisfactory for evaluation. Endocervical and/or squamous metaplastic cells (endocervical component) are present. Performed by: 01 Puneet Elise, [employer] Grinder ([facility]) . 01 Note: Note 01 The Pap smear is a screening test designed to aid in the detection of premalignant and malignant conditions of the uterine cervix. It is not a diagnostic procedure and should not be used as the sole means of detecting cervical cancer. Both false-positive and false-negative reports do occur. Test Methodology: Note 01 The [employer] Punching Machine Operator was unable to read this specimen. Therefore a manual review was performed. . 01 The HPV DNA reflex criteria were not met with this specimen result therefore, no HPV testing was performed. FLAG LEGEND: L-Low Normal,H-High Normal,LL-Alert Low,HH-Alert High <-Panic Low,>-Panic High,A-Abnormal,AA-Critical Abnormal Performed at: 01 [facility] [address] [place] [address] Luz Marina Swann MD, Performed at: [facility] [address] [id number] MD Shree Raza Performed By: #### 3 [id number] #### [facility] [address] [place] [id number] PAP [id number] 07-16-2023 Collection Technique BRUSH-SPATULA Normal [facility] Comment on above: Performed By: #### 3 [id number] #### [facility] [address] [place] [address] Gynecological Body Site ENDOCERVIX Normal [facility] Comment on above: Performed By: #### 3 [id number] #### [facility] [address] [place] [address] Physician Orderon 07-14-2023 Physician Order [id number] Normal [facility] DHEA SERUMon 08-11-2021 Dehydroepiandrosterone (DHEA) 339 ng/dL Normal [facility] Comment on above: Result Comment: Age 1 - 5 years 0 - 67 6 - 7 years 0 - 110 8 - 10 years 0 - 185 11 - 12 years 0 - 201 13 - 14 years 0 - 318 15 - 16 years 39 - 481 17 - 19 years 40 - 491 >19 years 31 - 70 Performed By: #### Justin SERRANO. #### [facility] [address] [place] [address] Dr. Austen Hernadez DHEA-SULFATEon 08-01-2021 DHEA-Sulfate 247.0 ug/dL Normal 110.0-431.7 [facility] Comment on above: Performed By: #### Justin LEBLANC #### [facility] [address] [place] [address] Dr. Austen Hernadez FSHon 08-01-2021 FSH 1.6 mIU/mL Normal [facility] Comment on above: Result Comment: Adul t Female: Follicular phase 3.5 - 12.5 Ovulation phase 4.7 - 21.5 Luteal phase 1.7 - 7.7 Postmenopausal 25.8 - 134.8 Performed By: #### [facility] #### [facility] [address] [place] [address] Dr. Austen Hernadez LUTEINIZING HORMONE (LH)on 0 08-01-2021 LH 2.6 mIU/mL Normal [facility] Comment on above: Result Comment: Adul t Female: Follicular phase 2.4 - 12.6 Ovulation phase 14.0 - 95.6 Luteal phase 1.0 - 11.4 Postmenopausal 7.7 - 58.5 Performed By: #### L BCLH #### [facility] [address] [place] [address] Dr. Austen Hernadez CBC AUTO DIFFon 07-30-2021 BASO # 0.0 103/ul Normal 0.0-0.1 [facility] Comment on above: Performed By: #### C BC #### [facility] [address] [place] [address] Dr. Austen Hernadez Basophils/100 WBC (Bld) 0.2 % Normal 0.2-2.0 [facility] Comment on above: Performed By: #### C BC #### [facility] [address] [place] [address] Dr. Austne Hernadez EO # 0.1 103/ul Normal 0.0-0.7 [facility] Comment on above: Performed By: #### C BC #### [facility] [address] [place] [address] Dr. Austen Hernadez Eosinophils/100 WBC (Bld) 1.2 % Normal 0.9-7.0 [facility] Comment on above: Performed By: #### C BC #### [facility] [address] [place] [address] Dr. Austen Hernadez Erythrocyte distribution width (RBC) [Ratio] 12.1 % Normal 11.0-15.0 [facility] Comment on above: Performed By: #### C BC #### [facility] [address] [place] [address] Dr. Austen Hernadez Hematocrit (Bld) [Volume fraction] 40.2 % Normal 36.0-48.0 [facility] Comment on above: Performed By: #### C BC #### [facility] [address] [place] [address] Dr. Austen Hernadez Hemoglobin (Bld) [Mass/Vol] 13.3 g/dL Normal 12.0-16.0 [facility] Comment on above: Performed By: #### C BC #### [facility] [address] [place] [address] Dr. Austen Hernadez IG # 0.04 10e3/ul Critically high 0.00-0.[address] [facility] Comment on above: Performed By: #### C BC #### [facility] [address] [place] [address] Dr. Austen Hernadez IG % 0.5 % Normal 0.0-0.5 [facility] Comment on above: Performed By: #### C BC #### [facility] [address] [place] [address] Dr. Austen Hernadez LYMPH # 1.7 103/ul Normal 1.2-3.8 [facility] Comment on above: Performed By: #### C BC #### [facility] [address] [place] [address] Dr. Austen Hernadez Lymphocytes/100 WBC (Bld) 20.1 % Critically low 20.5-6 0.0 [facility] Comment on above: Performed By: #### C BC #### [facility] [address] [place] [address] Dr. Austen Hernadez MANUAL DIFF REQ NO Normal [facility] Comment on above: Performed By: #### C BC #### [facility] [address] [place] [address] Dr. Austen Hernadez MCH (RBC) [Entitic mass] 30.0 pg Normal 26.7-34.0 [facility] Comment on above: Performed By: #### C BC #### [facility] [address] [place] [address] Dr. Austen Hernadez MCHC (RBC) [Mass/Vol] 33.1 g/dL Normal 29.9-35.2 [facility] Comment on above: Performed By: #### C BC #### [facility] [address] [place] [address] Dr. Austen Hernadez MCV (RBC) [Entitic vol] 90.5 fL Normal 81.0-99.0 [facility] Comment on above: Performed By: #### C BC #### [facility] [address] [place] [address] Dr. Austen Hernadez MONO # 0.5 103/ul Normal 0.3-0.8 [facility] Comment on above: Performed By: #### C BC #### [facility] [address] [place] [address] Dr. Austen Hernadez Monocytes/100 WBC (Bld) 5.8 % Normal 1.7-12.0 [facility] Comment on above: Performed By: #### C BC #### [facility] [address] [place] [address] Dr. Austen Hernadez NEUT # 6.2 103/ul Normal 1.4-6.5 [facility] Comment on above: Performed By: #### C BC #### [facility] [address] [place] [address] Dr. Austen Hernadez Neutrophils/100 WBC (Bld) 72.2 % Normal 43.0-75.0 [facility] Comment on above: Performed By: #### C BC #### [facility] [address] [place] [address] Dr. Austen Hernadez Platelet mean volume (Bld) [Entitic vol] 8.2 fL Critically low 9.5-13.5 [facility] Comment on above: Performed By: #### C BC #### [facility] [address] [place] [address] Dr. Austen Hernadez PLT 350 103/ul Normal 150-450 [facility] Comment on above: Performed By: #### C BC #### [facility] [address] [place] [address] Dr. Austen Hernadez RBC 4.44 106/ul Normal 4.20-5.40 [facility] Comment on above: Performed By: #### C BC #### [facility] [address] [place] [address] Dr. Austen Hernadez WBC 8.6 103/ul Normal 4.0-11.0 [facility] Comment on above: Performed By: #### C BC #### [facility] [address] [place] [address] Dr. Austen Hernadez GLYCOHEMOGLOBIN A1Con 2021 ADA RECOMMENDATION SEE BELOW Normal [facility] Comment on above: Result Comment: ADA RECOMMENDED LIMIT 4.0 - 6.0 ADA THERAPEUTIC TARGET < 7.0 ACTION SUGGESTED > 7.0 Performed By: #### A 1C #### [facility] [address] [place] [address] Dr. Austen Hernadez Glucose [Mass/Vol] 108 mg/dL Normal [facility] Comment on above: Performed By: #### A 1C #### [facility] [address] [place] [address] Dr. Austen Hernadez HbA1c (Bld) [Mass fraction] 5.4 % Normal 4.5-6.2 [facility] Comment on above: Performed By: #### A 1C #### [facility] [address] [place] [address] Dr. Austen Hernadez TSHon 07-30-2021 TSH 1.365 uIU/mL Normal 0.358-3.740 [facility] Comment on above: Performed By: #### T SH #### [facility] [address] [place] [address] Dr. Austen Hernadez TSH RANGE SEE BELOW Normal [facility] Comment on above: Result Comment: <0.3 4 UIU/ml HYPERTHYROID 0.34-5.60 UIU/ml EUTHYROID >5.60 UIU/ml HYPOTHYROID Performed By: #### T SH #### [facility] [address] [place] [address] Dr. Austen Hernadez US PELVIS AND TRANSVAGon [...] by: MACARENA GARCIA Date: 2021-07-30 15:31 Normal [facility] Vital Signs Date Time Vital Sign Value Performing Clinician Facility 01-11-2024 14:51-0400 Body mass index (BMI) [Ratio] 28.84 kg/m2 Valentina VARGAS Work Phone: [facility] 01-11-2024 14:51-0400 Body weight 73.85 kg Valentina VARGAS Work Phone: [facility] 01-11-2024 14:51-0400 Diastolic blood pressure 64 mm[Hg] Valentina VARGAS Work Phone: [facility] 01-11-2024 14:51-0400 Systolic blood pressure 102 mm[Hg] Valentina VARGAS Work Phone: [facility] 01-02-2024 10:36-0400 Body height 160 cm Moy York MD Work Phone: [facility] 01-02-2024 10:36-0400 Body mass index (BMI) [Ratio] 28.48 kg/m2 Moy York MD Work Phone: [facility] 01-02-2024 10:36-0400 Body weight 72.94 kg Moy York MD Work Phone: [facility] 01-02-2024 10:36-0400 Diastolic blood pressure 64 mm[Hg] Moy York MD Work Phone: [facility] 01-02-2024 10:36-0400 Heart rate 67 /min Moy York MD Work Phone: [facility] 01-02-2024 10:36-0400 Systolic blood pressure 100 mm[Hg] Moy York MD Work Phone: [facility] 12-14-2023 14:35-0400 Body mass index (BMI) [Ratio] 28.48 kg/m2 Erinn Hitesh DO Work Phone: [facility] 12-14-2023 14:35-0400 Body weight 72.92 kg Erinn Hitesh DO Work Phone: [facility] 12-14-2023 14:35-0400 Diastolic blood pressure 66 mm[Hg] Erinn Hitesh DO Work Phone: [facility] 12-14-2023 14:35-0400 Systolic blood pressure 108 mm[Hg] Erinn Hitesh DO Work Phone: [facility] 12-08-2023 17:27-0400 Body height 160.02 cm [facility] 12-08-2023 17:27-0400 Body mass index (BMI) [Ratio] 28.3 kg/m2 [facility] 12-08-2023 17:27-0400 Body temperature 98.6 [degF] [facility] 12-08-2023 17:27-0400 Body weight 72.57 kg [facility] 12-08-2023 17:27-0400 Diastolic blood pressure 69 mm[Hg] [facility] 12-08-2023 17:27-0400 Heart rate 87 /min [facility] 12-08-2023 17:27-0400 SaO2% (BldA) [Mass fraction] 97 % [facility] 12-08-2023 17:27-0400 Systolic blood pressure 107 mm[Hg] [facility] 09-22-2023 07:00-0400 Diastolic blood pressure 85 mm[Hg] Rodrigo Morena [facility] 09-22-2023 07:00-0400 Heart rate 58 /min Rodrigo Morena [facility] 09-22-2023 07:00-0400 Mean blood pressure 94 mm[Hg] Rodrigo Morena [facility] 09-22-2023 07:00-0400 SaO2% (BldA) [Mass fraction] 100 % Rodrigo Morena [facility] 09-22-2023 07:00-0400 Systolic blood pressure 113 mm[Hg] Rodrigo Morena [facility] 09-22-2023 06:30-0400 Diastolic blood pressure 67 mm[Hg] Rodrigo Morena [facility] 09-22-2023 06:30-0400 Heart rate 62 /min Rodrigo Morena [facility] 09-22-2023 06:30-0400 Mean blood pressure 81 mm[Hg] Rodrigo Morena [facility] 09-22-2023 06:30-0400 Respiratory rate 16 /min Rodrigo Morena [facility] 09-22-2023 06:30-0400 SaO2% (BldA) [Mass fraction] 99 % Rodrigo Morena [facility] 09-22-2023 06:30-0400 Systolic blood pressure 110 mm[Hg] Rodrigo Morena [facility] 09-22-2023 05:52-0400 Diastolic blood pressure 66 mm[Hg] Rodrigo Morena [facility] 09-22-2023 05:52-0400 Heart rate 76 /min Rodrigo Morena [facility] 09-22-2023 05:52-0400 Mean blood pressure 80 mm[Hg] Rodrigo Morena [facility] 09-22-2023 05:52-0400 Respiratory rate 18 /min Rodrigo Morena [facility] 09-22-2023 05:52-0400 SaO2% (BldA) [Mass fraction] 98 % Rodrigo Morena [facility] 09-22-2023 05:52-0400 Systolic blood pressure 109 mm[Hg] Rodrigo Berg [facility] 09-22-2023 05:29-0400 Body temperature 98.96 [degF] Rodrigo Berg [facility] 09-22-2023 05:29-0400 Heart rate 67 /min Rodrigo Berg [facility] 07-18-2023 00:06-0400 Body height 160 cm [facility] 07-18-2023 00:06-0400 Body mass index (BMI) [Ratio] 30.11 kg/m2 Elva Azevedo MD Work Phone: [facility] 07-18-2023 00:06-0400 Body temperature 98.29 [degF] Elva Azevedo MD Work Phone: [facility] [place] 07-18-2023 00:06-0400 Body weight 77.11 kg Elva Azevedo MD Work Phone: [facility] [place] 07-18-2023 00:06-0400 Diastolic blood pressure 79 mm[Hg] Elva Azevedo MD Work Phone: [facility] [place] 07-18-2023 00:06-0400 Heart rate 61 /min Elva Azevedo MD Work Phone: [facility] [place] 07-18-2023 00:06-0400 Respiratory rate 16 /min Elva Azevedo MD Work Phone: [facility] [place] 07-18-2023 00:06-0400 SaO2% (BldA) [Mass fraction] 96 % Elva Azevedo MD Work Phone: [facility] [place] 07-18-2023 00:06-0400 Systolic blood pressure 132 mm[Hg] Elva Azevedo MD [facility] 07-07-2022 09:35-0400 Diastolic blood pressure 60 mm[Hg] Chris Banegas [facility] 07-07-2022 09:35-0400 Heart rate 83 /min Chris Banegas [facility] 07-07-2022 09:35-0400 SaO2% (BldA) [Mass fraction] 97 % Chris Banegas [facility] 07-07-2022 09:35-0400 Systolic blood pressure 100 mm[Hg] Chris Banegas [facility] Encounters Encounter Date Encounter Type Care Provider Facility Start: 01-11-2024 End: 01-11-2024 flow sheet Valentina VARGAS Work Phone: [facility] Comment on above: Second trimester pre gnancy; 24 weeks gestation of ; Diabetes mellitus screening Start: 01-11-2024 End: 01-11-2024 ambulatory VALENTINA CORDOVA Not Available Start: 01-11-2024 End: 01-11-2024 Bamboo flowsheet Valentina VARGAS Work Phone: [facility] Start: 01-11-2024 End: 01-11-2024 Bamboo flowsheet Valentina VARGAS Work Phone: [facility] Start: 01-02-2024 End: 01-02-2024 Office consultation new/estab patient 60 min Moy York MD Work Phone: [facility] Comment on above: Partial placenta pre via (Primary Dx) Start: 01-02-2024 End: 01-02-2024 Orders Only Sushila Mcneil RN [facility] Comment on above: Low-lying placenta ( Primary Dx); Personal history of cardiac murmur Start: 12-20-2023 End: 12-20-2023 Chart abstracting Moy York MD Work Phone: [facility] Start: 12-16-2023 End: 12-16-2023 Chart abstracting Moy York MD Work Phone: [facility] Start: 12-14-2023 End: 12-14-2023 flow sheet Erinn Hitesh DO Work Phone: [facility] Comment on above: Second trimester pre gnancy; 20 weeks gestation of ; Partial placenta previa Start: 12-14-2023 End: 12-14-2023 ambulatory ERINN HITESH Not Available Start: 12-08-2023 End: 12-08-2023 ambulatory [facility] Work Phone: Start: 12-08-2023 End: 12-08-2023 Patient encounter procedure [facility] Work Phone: Start: 11-16-2023 End: 11-16-2023 ambulatory ERINN HITESH Not Available Start: 10-17-2023 End: 10-17-2023 ambulatory ERINN HITESH Not Available Start: 09-29-2023 End: 09-29-2023 ambulatory ERINN HITESH Not Available Start: 09-22-2023 End: 09-22-2023 Emergency department patient visit Rodrigo Berg [facility] Start: 07-18-2023 End: 07-18-2023 Emergency department patient visit [facility] Start: 07-18-2023 End: 07-18-2023 Emergency department patient visit Elva Azevedo MD Work Phone: [facility] Comment on above: De Quervain's tenosy novitis, left (Primary Dx) Start: 07-14-2023 End: 07-14-2023 ambulatory Love Palmer [facility] Start: 07-14-2023 End: 07-14-2023 Lab Drop off Love Palmer [facility] Start: 06-15-2023 End: 06-15-2023 ambulatory ERINN PROCTOR Not Available Start: 07-07-2022 End: 07-07-2022 Patient encounter procedure Chris Banegas [facility] Start: 07-30-2021 End: 07-31-[address] ERINN PROCTOR Facility:[facility] Start: 07-15-2021 End: 07-15-2021 Lab Drop off Love Palmer [facility] Procedures Date Procedure Procedure Detail Performing Clinician Start: 01-11-2024 Urnls dip stick/tabl et rgnt non-auto w/o micrscp Valentina VARGAS Work Phone: Start: 12-14-2023 Urnls dip stick/tabl et rgnt non-auto w/o micrscp Erinn Proctor DO Work Phone: Start: 12-08-2023 Quick Strep (POC) Start: 11-16-2023 Microscopic observat ion [Identifier] in Cervix by Cyto stain Moy York MD Work Phone: Plan of Treatment Date Care Activity Detail Author Start: 11-15-2026 Screening for malign ant neoplasm of cervix [facility] Start: 01-01-2025 End: 01-01-2025 US MFM with or without consult US MFM with or without consult Imaging Routine Low-lying placenta Personal history of cardiac murmur Expected: 01/01/2025 (Approximate), Expires: 01/01/2025 [employer] Work Phone: Comment on above: Expected: 01/01/2025 (Approximate), Expires: 01/01/2025 Start: 02-08-2024 End: 02-08-2024 Patient encounter procedure 02/08/2024 3:10 PM EST Routine [facility] [address] [place] [id number] Erinn Proctor DO [address] [place] [address] [facility] Start: 02-02-2024 End: 02-02-2024 Patient encounter procedure 02/02/2024 1:00 PM EST Appointment [facility] [address] [place] [id number] [facility] Start: 01-11-2024 End: 01-11-2024 Patient encounter procedure 01/11/2024 2:30 PM EDT Routine [facility] [address] [place] [id number] Valentina Cordova PA [address] [place] [address] [facility] Start: 01-11-2024 End: 01-10-2025 CBC panel - Blood by Automated count CBC Lab Routine Diabetes mellitus screening Expected: 01/11/2024 (Approximate), Expires: 01/10/2025 [facility] Work Phone: Comment on above: Expected: 01/11/2024 (Approximate), Expires: 01/10/2025 Start: 01-11-2024 End: 01-10-2025 Measurement of glucose 1 hour after glucose challenge for glucose tolerance test Glucose tolerance, 1 hour Lab Routine Diabetes mellitus screening Expected: 01/11/2024 (Approximate), Expires: 01/10/2025 [facility] Comment on above: Expected: 01/11/2024 (Approximate), Expires: 01/10/2025 Start: 01-02-2024 End: 01-02-2024 Patient encounter procedure [facility] Start: 11-13-2023 Influenza vaccination [facility] Start: 10-13-2023 Influenza vaccination Flu vacc ine (Season Ended) [facility] Start: 08-22-2022 DTaP,Tdap and Td Vaccines (7 - Td or Tdap) DTaP,Tdap and Td Vaccines (7 - Td or Tdap) [facility] Start: 12-11-2019 Screening for malign ant neoplasm of cervix Pap Smear [facility] Start: 2017 DTaP,Tdap and Td Vaccines (1 - Tdap) DTaP,Tdap and Td Vaccines (1 - Tdap) [facility] Start: 2017 DTaP/Tdap/Td vaccine (1 - Tdap) DTaP/Tdap/Td vaccine (1 - Tdap) [facility] Start: 2016 Adult BMI Follow Up Plan Adult BMI Follow Up Plan [facility] Start: 2016 Adult BMI Screening Adult BMI Screen ing [facility] Start: 2010 Depression Screening Depression Scre ening [facility] Start: 2010 Tobacco Screening Tobacco Screening [facility] Start: 06-10-1999 COVID-19 Vaccine (#1) COVID-19 Vacci ne (#1) [facility] Immunizations Immunization Date Immunization Notes Care Provider Fa ruiz 12-28-2018 influenza virus vacc ine, unspecified formulation Erinn Proctor DO Work Phone: [facility] Payers Date Payer Category Payer [facility] [id number] 2023 [facility] [employer] [id number] 2023 Unknown 2023 Unknown [id number] .[id number] 2000 Unknown [id number] 2.16.840.1.278420.3.579 .2.593 2000 Unknown [id number] 2.16.840.1.384445.3.579 .2.173 1998 Unknown [id number] 2.16.840.1.144979.3.579 .2.727 1998 Unknown [id number] 2.16.840.1.941225.3.579 .2.727 1998 Unknown [id number] 2.16.840.1.153712.3.579 .2.727 1998 Unknown [id number] 2.16.840.1.931526.3.579 .2.1286 1998 Unknown [id number] 2.16.840.1.719049.3.579 .2.1286 1998 Unknown [id number] 2.16.840.1.108083.3.579 .2.1259 1998 Unknown [id number] 2.16.840.1.045953.3.579 .2.1259 1998 Unknown [id number] 2.16.840.1.193628.3.579 .2.1259 1998 Unknown [id number] 2.16.840.1.419686.3.579 .2.1259 1998 Unknown [id number] 2.16.840.1.837416.3.579 .2.1259 1998 Unknown [id number] 2.16.840.1.114464.3.579 .2.1259 1959 Unknown [id number] Social History Date Type Detail Facility Start: 10-24-2020 End: 01-02-2024 Tobacco smoking status Never smoked tobacco (finding) [facility] Tobacco smoking status Never [facility] Start: 07-01-2012 End: 01-02-2024 Sex Assigned At Female [facility] Start: 07-18-2023 End: 01-02-2024 Tobacco use and exposure Smokeless tobacco non-user [facility] Start: 07-18-2023 End: 01-02-2024 Alcohol intake Ex-drinker (finding) [facility] Start: 07-01-2012 End: 01-02-2024 History of Social function [facility] Start: 2000 Sex Assigned At Not on file [facility] Start: 2000 Sex Assigned At Female [facility] Tobacco smoking status NHIS Tobacco smoking consumption unknown [facility] Start: 08-06-2023 [facility] Start: 05-26-2022 Gender identity Identifies as female gender (finding) [facility] Start: 12-16-2023 Sex Female (finding) [facility] NEGATED: Highlighted rowStart: NINF History of tobacco use Passive smoker [facility] Goals Date Patient Goal Desired Activity /State Personal health goal Functional Status Date Assessment Result Facility 09-22-2023 Functional Status N/A [facility] 07-07-2022 Functional Status N/A [facility] Clinical Notes 07-15-2021 to 01-11-2024 ALICIA Knutson - 01/11/2024 2:30 PM Clifton York MD - 01/02/2024 11:00 AM Griselda Mcneil RN - 01/02/2024 11:00 AM Feliz Moss LPN - 12/14/2023 2:10 PM EDT Note Date & Type Note Facility 01-11-2024 History of Present illness Narrative Reason for Appointment: Patient ID: Ericka Aleman is a 23 y.o. female who presents for Routine Visit Patient presents today for Return OB appointment. MEDICATIONS Current Outpatient Medications Medication Instructions amoxicillin (AMOXIL) 875 mg, Oral, 2 times daily ondansetron ODT (Zofran-ODT) 4 MG disintegrating tablet valACYclovir (Valtrex) 500 MG tablet 1 tablet, Oral, Daily ALLERGIES No Known Allergies PROBLEMS Active Ambulatory Problems Diagnosis Date Noted No Active Ambulatory Problems Resolved Ambulatory Problems Diagnosis Date Noted No Resolved Ambulatory Problems Past Medical History: Diagnosis Date HSV-1 (herpes simplex virus 1) infection HISTORY PAST MEDICAL HISTORY SOCIAL HISTORY Past Medical History: Diagnosis Date HSV-1 (herpes simplex virus 1) infection Social History Tobacco Use Smoking status: Not on file Smokeless tobacco: Not on file Substance Use Topics Alcohol use: Not on file Drug use: Not on file FAMILY HISTORY No family history on file. SURGICAL HISTORY History reviewed. No pertinent surgical history. REVIEW OF SYSTEMS Review of Systems: Review of Systems Constitutional: Negative. HENT: Negative. Eyes: Negative. Respiratory: Negative. Cardiovascular: Negative. Gastrointestinal: Negative. Genitourinary: Negative. Musculoskeletal: Negative. Skin: Negative. Neurological: Negative. All other systems reviewed and are negative. Hematological: Negative. Endocrine: Negative. Allergic/Immunologic: Negative. OBJECTIVE Objective: Physical Exam Constitutional: Appearance: Normal appearance. She is normal weight. HENT: Head: Normocephalic. Cardiovascular: Rate and Rhythm: Normal rate. Pulses: Normal pulses. Pulmonary: Effort: Pulmonary effort is normal. Breath sounds: Normal breath sounds. Abdominal: Palpations: Abdomen is soft. Musculoskeletal: General: Normal range of motion. Neurological: General: No focal deficit present. Mental Status: She is alert and oriented to person, place, and time. Psychiatric: Mood and Affect: Mood normal. Behavior: Behavior normal. Thought Content: Thought content normal. Judgment: Judgment normal. Vitals and nursing note reviewed. Vitals: Estimated body mass index is 28.84 kg/m as calculated from the following: Height as of 23: 5' 3 . Weight as of this encounter: 162 lb 12.8 oz. BP: 102/64 Patient's last menstrual period was 07/30/2023. ASSESSMENT & PLAN ICD-10-CM 1. Second trimester Z34.92 POCT urinalysis dipstick manually resulted 2. 24 weeks gestation of Z3A.24 POCT urinalysis dipstick manually resulted 3. Diabetes mellitus screening Z13.1 CBC Glucose tolerance, 1 hour Return OB: Patient presents today for a routine obstetrics appointment. Patient is currently 24w4d . Patient states she is doing well but has complaints of being tired due to current . Patient has verbalizes frequent movement. Orders Placed This Encounter Procedures CBC Glucose tolerance, 1 hour POCT urinalysis dipstick manually resulted Follow Up: Patient is to return to office in 4 week for routine OB appointment. Documented by ALICIA Knutson on behalf of: ALICIA Knutson documented in this encounter [facility] 01-02-2024 History of Present illness Narrative REASON FOR CONSULTATION: Posterior low-lying placenta. HISTORY OF PRESENT ILLNESS: Ericka Aleman is a pleasant 23 y.o. G 3 P0 0 2-0. at 23w2d due on Estimated Date of Delivery: 04/28/24 . Patient was seen today due to the following 1. Posterior low-lying placenta. Initially partial placenta previa was seen however on today's ultrasound, posterior low-lying placenta was seen which is suggestive of resolving placenta previa. 2. Patient with a possible heart murmur. Patient states that when she was approximately 6 to 7 years old she was told she had a murmur and she had echocardiography which showed a possible leaky valve. Patient did not a follow-up afterwards. Currently the patient has no complaints. The patient denies nausea, vomiting, abdominal pain, vaginal bleeding, SOB or chest pain. Patient's PMH/PSH,SH,PSYCH Hx, MEDs, ALLERGIES, and ROS were all reviewed and updated in the appropriate sections. Patient Active Problem List Diagnosis Partial placenta previa Past Medical History: Diagnosis Date Heart murmur HSV-1 infection Miscarriage PAST OBSTETRICAL HISTORY: OB History 3 Para Term AB 2 Living SAB 2 IAB Ectopic Multiple Live Births SURGICAL HISTORY: History reviewed. No pertinent surgical history. ALLERGIES: No Known Allergies CURRENT MEDICATIONS: Current Outpatient Medications: ondansetron (ZOFRAN) 4 mg tablet, Take 1 tablet (4 mg total) by mouth every 8 (eight) hours as needed for nausea or vomiting., Disp: , Rfl: vit no.124/iron/folic ( VITAMIN ORAL), Take by mouth., Disp: , Rfl: valACYclovir (VALTREX) 500 mg tablet, Take 1 tablet (500 mg total) by mouth in the morning and 1 tablet (500 mg total) before bedtime., Disp: , Rfl: FAMILY/GENETIC HISTORY: No family history of VTE, cardiac defects and mental retardation . SOCIAL HISTORY:Patient + THC. RECENT HOSPITALIZATION: none I did review all the labs results available in addition to labs which were ordered by the primary care physician, and the other consultants, we search on [employer] and all the available care everywhere epic I did review all the imaging studies of the patient available on EMR, ordered by the primary care physician and the other solution consultant HABITS: Patient activity no restrictions, diet no restrictions REVIEW OF SYSTEM: Head and Neck: Negative for any dizziness and headaches. Cardiovascular and Respiratory System: Denies any chest pain, shortness of breath, and coughing. Abdominal and System: Denies any abdominal pain, nausea, vomiting, vaginal bleeding, and vaginal discharge Social Determinants of Health Financial Resource Strain: n Food Insecurity: n Transportation Needs: n Physical Activity: y Social Connections: y Intimate Partner Violence: n Housing Stability: y PHYSICAL EXAMINATION: BP 100/64 Pulse 67 Ht 160 cm (5' 3 ) Wt 72.9 kg (160 lb 12.8 oz) LMP 07/30/2023 BMI 28.48 kg/m . Gravid abdomen, Respirations not labored. Well oriented time place person, normal gait MEDICAL DECISION MAKING DISCUSSION: We discussed posterior low-lying placenta. Most likely the placenta will move away and patients will still be a candidate for vaginal delivery at her local hospital. Until the placenta moves away patient should continue pelvic rest. We further discussed questionable maternal heart valve issue or a murmur. Echocardiography in the 3rd trimester to be coordinated through her OB office. Trivial mitral or tricuspid regurgitation finding and should still be considered a low risk patient for delivery at her local hospital. RECOMMENDATION: 1. Posterior low-lying placenta seen on today's ultrasound. 2. Patient states about a murmur as a young child. 3. Since the patient did not follow-up, we would recommend a basic maternal echocardiography in the 3rd trimester to be coordinated through her OB office at her local hospital. 4. Most likely placenta will resolve and therefore patient is still considered a candidate for delivery at local hospital. 5. Follow-up in 4 weeks for re-evaluation of placental location. 6. Incase low lying Placenta does not resolved in 4 weeks we will bring the patient back between 34-36 weeks gestation for another placental location evaluation. 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 Patient does have ultrasound scheduled with us. Thank you for allowing me to participate in Ericka Aleman . If there any questions please do not hesitate to contact us. Sincerely, MOY YORK MD Headache/epigastric pain/blurry vision/swelling? No Cramping/contractions? No Abnormal vaginal discharge? No Spotting/vaginal bleeding? No Loss or gush of fluid like your water may have broken? No Do you have cats at home? Yes Do you change the litter box (reason: risk of toxoplasmosis)? No Genetic testing done this here or other office? CFDNA neg Have you been seen here at [facility] in a previous ? No Recent ER visits or hospitalizations? No Bring blood sugar log or meter with you today? (Please bring them with you for every visit at [facility]) N/A Flu vaccine (Jan-May)? N/A Any concerns that you would like me to mention to the provider today? No documented in this encounter [facility] 12-14-2023 History of Present illness Narrative Reason for Appointment: Patient ID: Ericka Aleman is a 23 y.o. female who presents for Routine Visit Patient presents today for Return OB appointment. MEDICATIONS Current Outpatient Medications Medication Instructions amoxicillin (AMOXIL) 875 mg, Oral, 2 times daily ondansetron ODT (Zofran-ODT) 4 MG disintegrating tablet valACYclovir (Valtrex) 500 MG tablet 1 tablet, Oral, Daily ALLERGIES No Known Allergies PROBLEMS Active Ambulatory Problems Diagnosis Date Noted No Active Ambulatory Problems Resolved Ambulatory Problems Diagnosis Date Noted No Resolved Ambulatory Problems Past Medical History: Diagnosis Date HSV-1 (herpes simplex virus 1) infection HISTORY PAST MEDICAL HISTORY SOCIAL HISTORY Past Medical History: Diagnosis Date HSV-1 (herpes simplex virus 1) infection Social History Tobacco Use Smoking status: Not on file Smokeless tobacco: Not on file Substance Use Topics Alcohol use: Not on file Drug use: Not on file FAMILY HISTORY No family history on file. SURGICAL HISTORY History reviewed. No pertinent surgical history. REVIEW OF SYSTEMS Review of Systems: Review of Systems Constitutional: Negative. HENT: Negative. Eyes: Negative. Respiratory: Negative. Cardiovascular: Negative. Gastrointestinal: Negative. Genitourinary: Negative. Musculoskeletal: Negative. Skin: Negative. Neurological: Negative. All other systems reviewed and are negative. Hematological: Negative. Endocrine: Negative. Allergic/Immunologic: Negative. OBJECTIVE Objective: Physical Exam Constitutional: Appearance: Normal appearance. She is well-developed. Cardiovascular: Rate and Rhythm: Normal rate and regular rhythm. Pulmonary: Effort: Pulmonary effort is normal. Breath sounds: Normal breath sounds. Abdominal: General: Bowel sounds are normal. There is no distension. Palpations: Abdomen is soft. Tenderness: There is no abdominal tenderness. There is no guarding or rebound. Musculoskeletal: General: No swelling. Normal range of motion. Right lower leg: No edema. Left lower leg: No edema. Neurological: Mental Status: She is alert and oriented to person, place, and time. Skin: General: Skin is warm and dry. Psychiatric: Mood and Affect: Mood normal. Behavior: Behavior normal. Vitals and nursing note reviewed. Exam conducted with a manager client support present. Vitals: Estimated body mass index is 28.48 kg/m as calculated from the following: Height as of 07/05/22: 5' 3 . Weight as of this encounter: 160 lb 12 oz. BP: 108/66 Patient's last menstrual period was 07/30/2023. ASSESSMENT & PLAN ICD-10-CM 1. Second trimester Z34.92 POCT urinalysis dipstick manually resulted 2. 20 weeks gestation of Z3A.20 POCT urinalysis dipstick manually resulted 3. Partial placenta previa O44.20 Pt presents for OB appt. Pt had anatomy scan prior to appt. Pt placenta partially covers os. Pt being referred to [facility] for evaluation of placenta previa. Pt to be on pelvic rest until further notice. Pt to return in 4 weeks. Documented by Kami Moss LPN on behalf of: Erinn Proctor DO documented in this encounter [facility] 09-22-2023 Evaluation + Plan note Extrac arvin from: Title:ED Note Author:Rodrigo Berg DO Date :09/22/23 Asymptomatic bacteriuria dur ing (O99.891: Other specified diseases and conditions complicating ) Bacteriuria (R82.71: Bacteriuria) Nausea and vomiting during (O21.9: Vomiting of , unspecified) Orders: cephalexin, 500 mg = 1 cap(s), Oral, q12hr, X 5 day(s), # 10 cap(s), Refills(s) 0, Pharmacy: [facility]/pharmacy #[id number], 160, cm, 09/22/23 5:34:00 EDT, Height/Length Dosing, 72.4, kg, 09/22/23 5:34:00 EDT, Weight Dosing Lactated Ringers Injection, 1,000 mL, Soln-IV, IV, Once, Stop date 09/22/23 5:38:00 EDT, STAT, Start date 09/22/23 5:38:00 EDT, mL/hr, Infuse over 61, minute(s) promethazine, 12.5 mg = 1 tab(s), Oral, q8hr, PRN as needed for nausea/vomiting, # 12 tab(s), Refills(s) 0, Pharmacy: [facility]/pharmacy #[id number], 160, cm, 09/22/23 5:34:00 EDT, Height/Length [...] Diagnostic Tests Pending * Urine Culture 09/22/23 [facility]07-11-2024 Hospital Discharge instructions Patient Education 09/22/2023 07:17:19 [...] Follow these instructions at home: Medicines Take ialu-ure-qkwnxwq and prescription medicines only as told by your health care provider. Do not use any prescription, bmxh-csl-liiidbj, or herbal medicines for morning sickness without [...] provider. Document Revised: 10/13/2020 Document Reviewed: 09/22/2020 [employer] Patient Education 2022 [employer]. 09/22/2023 07:17:19 Asymptomatic Bacteriuria Asymptomatic Bacteriuria Asymptomatic [...] labor). ?Very low weight ( growth restriction). ?[place] . You are having a procedure that affects the urinary tract. You have had a kidney transplant. If you are diagnosed with this condition, talk with your health care provider about any concerns that you have. Follow these instructions at home: Medicines Take ykkd-xhc-qvqicsj and prescription medicines only as told by [...] provider. Document Revised: 10/10/2020 Document Reviewed: 10/10/2020 [employer] Patient Education 2022 [employer]. Follow Up Care 09/22/2023 05:26:40 With:Erinn PROCTOR Address: [address] [place] [address] Business (1) When:09/25/2023 06:28:14 [facility]07-11-2024 NoteED Patient Education Note Obstetrics and Gynecology [...] these instructions at home: Medicines ? Take ocxk-ccf-mliibnq and prescription medicines only as told by your health care provider. Do not use any prescription, brqq-bxe-ijhnick, or herbal medicines for morning sickness without [...] provider. Document Revised: 10/13/2020 Document Reviewed: 09/22/2020 [employer] Patient Education ? 2022 [employer]. Urology Asymptomatic Bacteriuria Asymptomatic bacteriuria is the [...] You are an o (more content not included)...[facility] 07-18-2023 Hospital Discharge instructions* Discharge Instructions* Elva [...] sent through Care Everywhere. * Tenosynovitis: Wrist ([place]) [facility] Discharge instructions Patient Education [...] numbers. This can be done either in [place] or metric measurements. Note that charts and online BMI calculators are available to help you find your BMI quickly and easily without having to do these calculations yourself. To calculate your BMI in [place] ([place] measurements: 1.Measure your weight in pounds [...] Centers for Disease Control and Prevention: www.cdc.gov [place] Heart Association: www.heart.org National Heart, Lung, and Blood [place]: www.nhlbi.nih.gov Summary Body mass index (BMI) is a number that is calculated from a person's weight and height. BMI may help estimate how much of a person's weight is composed of fat. BMI can help identify thosewho may be at higher risk for certain medical problems. BMI can be measured using [place] measurements or metric measurements. BMI charts are used to identify whether you are underweight, normal weight, overweight, or obese. This information is not intended to replace advice given to you by your health care provider. Make sure you discuss any questions you have with your health care provider. Document Revised: 11/21/2019 Document Reviewed: 09/28/2019 [employer] Patient Education 2022 [employer]. 07/07/2022 10:02:02 Tendinitis, Lrlr-xc-Upyy Tendinitis Tendinitis is irritation and swelling (inflammation) [...] only as told by your doctor. Take svrj-rnx-xdrfsim and prescription medicines only as told by [...] provider. Document Revised: 11/05/2021 Document Reviewed: 11/05/2021 [employer] Patient Education 2022 [employer] Follow Up Care 07/07/2022 09:19:19 With:NONE, XXXX Address: [phone] When: Unknown [facility] [phone] Evaluation + Plan note Diagnostic Tests Pending * Chlamydia/Gonococcus, KESHIA [facility]* Diagnosis De Quervain's tenosynovitis, left- Primary Radial styloid tenosynovitis [facility] noteNo assessment information available [facility] Work Phone: Evaluation note* Diagnosis Second trimester state, incidental 20 weeks gestation of Partial placenta previa Placenta previa without hemorrhage, unspecified as to episode of care [facility] Diagnosis Partial placenta previa- Primary Placenta previa without hemorrhage, unspecified as to episode of care [facility] Diagnosis Low-lying placenta- Primary Hemorrhage from placenta previa, unspecified as to episode of care Personal history of cardiac murmur Personal history of other diseases of circulatory system documented in [facility]* Diagnosis Second trimester state, incidental 24 weeks gestation of Diabetes mellitus screening Screening for diabetes mellitus documented in this encounter [facility] HealthcareHospital course Narrative No data available for this section [facility] No data available for this section [facility] filedocumented in this encounter [facility] filedocumented in this encounter [facility] SystemInstructionsNot on filedocumented in this encounter [facility] No data available for this section [facility] Reason for referral (narrative) Referred by: Chris Banegas PA-C [facility] Summary Purpose Family History [...] Found Advance Directives No Advanced Directives Records Found Advance Directive Response Recorded Date/ Time Advance Directives No November 5:22pm Chief Complaint and Reason for Visit Chief Complaint congestion, ear pain Additional Source Comments INFORMATION SOURCE (unrecogn ized section and content) DATE CREATED AUTHOR 08/12/2021 [facility] DATE CREATED AUTHOR AUTHOR'S ORGANIZ ATION 07/18/2023 [facility] DATE CREATED AUTHOR AUTHOR'S ORGANIZ ATION 09/28/2023 [facility] DATE CREATED AUTHOR AUTHOR'S ORGANIZ ATION 09/29/2023 [facility] DATE CREATED AUTHOR AUTHOR'S ORGANIZ ATION 01/03/2024 [facility] DATE CREATED AUTHOR AUTHOR'S ORGANIZ ATION 01/13/2024 [facility] Reason for Visit (unrecogniz ed section and content) Reason Comments Wrist Injury Patient arrived to E with complaints of left wrist injury. 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 had issues with her left wrist prior to incident. 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 [facility] [employer] provides no warranty or guarantee of the accuracy or completeness of information in this document.
[2024-01-28 11:28] LABS: Basophils Percent Auto 0.2 % (0.2-2.0); Eosinophils Absolute Auto 0.1 10^3/uL (0.0-0.7); Eosinophils Percent Auto 0.8 % (0.9-7.0); Hematocrit 34.2 % (36.0-48.0); Hemoglobin 11.7 g/dL (12.0-16.0); Immature Granulocytes Pct Auto 1.5 % (0.0-0.5); Lymphocytes Absolute Auto 2.7 10^3/uL (1.2-3.8); Lymphocytes Percent Auto 20.2 % (20.5-60.0); Mean Corpuscular HGB Conc 34.2 g/dL (29.9-35.2); Mean Corpuscular Hemoglobin 31.4 pg (26.7-34.0); Mean Corpuscular Volume 91.7 fL (81.0-99.0); Monocytes Absolute Auto 0.8 10^3/uL (0.3-0.8); Monocytes Percent Auto 6.2 % (1.7-12.0); Neutrophils Absolute Auto 9.4 10^3/uL (1.4-6.5); Neutrophils Percent Auto 71.1 % (43.0-75.0); Platelet Count 320 10^3/uL (150-450); Red Blood Count 3.73 10^6/uL (4.20-5.40); Red Cell Distribution Width 12.4 % (11.0-15.0); White Blood Count 13.2 10^3/uL (4.0-11.0)
[2024-01-28 12:10] LABS: Glucose 1 Hour 140 mg/dL (<130)
== END 2024-01-28 10:05 | disposition home or self-care (01) ==
LOC: LAB 10:06
PROVIDERS: Visit Provider Physician Assistant
DX: Z13.1 Encounter for screening for diabetes mellitus (principal)
CPT/HCPCS: 36415; 82950; 85025

== ENCOUNTER 2024-02-01 13:04 | Outpatient (OUT) | payer BC, SELFPAY ==
[2024-02-01 13:39] LABS: Glucose Fasting 88 mg/dL (<95)
[2024-02-01 14:34] LABS: Glucose 1 Hour 177 mg/dL (<180)
[2024-02-01 15:39] LABS: Glucose 2 Hour 131 mg/dL (<155)
[2024-02-01 16:29] LABS: Glucose 3 Hour 106 mg/dL (<140)
== END 2024-02-01 13:05 | disposition home or self-care (01) ==
LOC: LAB 13:04
PROVIDERS: Visit Provider Physician Assistant
DX: R73.09 Other abnormal glucose (principal)
CPT/HCPCS: 36415; 82951; 82952

== ENCOUNTER 2024-02-18 23:26 | Observation (INO) | payer BC, SELFPAY ==
[2024-02-19 00:19] VITALS: BP 120/55; PULSE 89
== END 2024-02-19 00:30 | disposition home or self-care (01) ==
LOC: FBC 23:28
PROVIDERS: Admitting Provider Obstetrics & Gynecology; Visit Provider Obstetrics & Gynecology
DX: O36.8130 Decreased fetal movements, third trimester, not applicable or unspecified (principal); Z3A.30 30 weeks gestation of pregnancy
CPT/HCPCS: 59025; G0378; G0379

== ENCOUNTER 2024-03-12 12:51 | Outpatient (OUT) | payer BC, SELFPAY ==
--- NOTE | 2024-03-12 12:55 | US_ITS ---
[address] [address] Patient Name: SEBASTIAN ORELLANA MRN: [id number] date: 2000 Sex: F Assigned Patient Location: US Current Patient Location: US Accession/Order Number: [id number] Exam Date: 03/12/2024 13:00 Report Date: 03/12/2024 14:12 At the request of: WILI CORDOAV Procedure: US OB growth EXAMINATION: US OB growth HISTORY: Size Inconsistent With Dates COMPARISON: Ultrasound OB anatomy 01-04 FINDINGS: Heart Rate: 133.66 bpm Amniotic Fluid Volume: 12.7 cm; normal range. Number: 1 Position: CEPHALIC BIOMETRY: BPD: 8.39 cm; 33 weeks 5 days; 59.90 % HC: 30.18 cm; 33 weeks 4 days; 19.20 % AC: 30.64 cm; 34 weeks 4 days; 85.30 % FL: 6.09 cm; 31 weeks 4 days; 6.70 % EFW: 2227.64 g; 50.60 % FL/AC: 19.86 FL/BPD: 72.51 HC/AC: 0.98 GESTATIONAL AGE: Age by EDC: 33 weeks 2 days MIKE by EDC: 2024-04-28 Age by US: 33 weeks 3 days MIKE by US: 2024-04-27 US/US OB growth IMPRESSION: 1. Single live intrauterine with growth detailed above. Electronically authenticated by: MACARENA GARCIA Date: 03/12/2024 14:12
--- OUTSIDE RECORDS SUMMARY | 2024-03-12 13:11 | XMS_ITS | CCD ---
Author Organization [facility] Care Team Providers Care Clinical Dietician Name Role Phone NONE, XXXX Primary Care Physician Unavailab thee PROCTOR, DR PLASENCIA Attending Unavailable HITESH, DR PLASENCIA Consulting Unavailable HITESH, DR PLASENCIA Admitting Unavailable ZIEBER, DR MACARENA Kim Consulting Unavailable Unavailable Primary Care Provider UnavailELVA Caldera Attending Unavailable DO Rodrigo Berg Attending Unavailable Love Palmer Attending Unavailable Love Palmer Admitting Unavailable DO Rodrigo Berg Attending Unavailable UnalloRobert ortiz MD Provider Primary Care Provi que Unavailable Primary Care Provider UnavailERINN Domínguez Referring Unavailable MOY YORK Attending Unavailable MOY YORK Referring Unavailable ERINN PROCTOR Attending Unavailable HITESH, ERINN Attending Unavailable HITESH, ERINN Attending Unavailable HITESH, ERINN Attending Unavailable VALENTINA CORDOVA Attending Unavailable HITESH, ERINN Attending Unavailable VALENTINA CORDOVA Attending Unavailable UnalRobert cline MD Provider Primary Care Provi que Medications Current Medications Medication Drug Class(es) Dates Sig (Normalized) Sig (Original) cephalexin 500 mg oral capsule (1 source) Cephalosporin Antibacterial Start: 09-22-2023 End: 09-27-2023 take 1 capsule by mouth every twelve hours Keflex 500 mg Cap 500 mg = 1 cap(s), Oral, q12hr, X 5 day(s), # 10 cap(s), Refills(s) 0, Pharmacy: [facility]/pharmacy #[id number], 160, cm, 09/22/23 5:34:00 EDT, Height/Length Dosing, 72.4, kg, 09/22/23 5:34:00 EDT, Weight Dosing Start Date: 09/22/23 Stop Date: 09/27/23 Status: Ordered citalopram 20 mg oral tablet (4 sources) Serotonin Reuptake Inhibitor Start: 03-12-2019 take 1 tablet by mouth once daily citalopram 20 mg Tab TAKE 1 TABLET BY MOUTH EVERY DAY Start Date: 03/12/19 Status: Ordered 21 day ethinyl estradiol 0.693401 mg/hr / etonogestrel 0.005 mg/hr vaginal system [...] Ordered ondansetron 4 mg disintegrating oral tablet (20 sources) Serotonin-3 Receptor Antagonist Start: 11-15-2023 ondansetron ODT (Zofran-ODT) 4 MG disintegrating tablet 11/15/2023 Active take 1 tablet by titi th every eight hours as needed for nausea and vomiting ondansetron (ZOFRAN) 4 mg tablet Take 1 tablet (4 mg total) by mouth every 8 (eight) hours as needed for nausea or vomiting. Active Pnv #[id number]-Wwvxj Acid-Omega3 (1 source) Start: 12-08-2023 Pnv #40-Wqpb-Gjsjg Acid-Omega3 Active CAP PO December 08, 2023 12:00am predniSONE 20 mg oral tablet (1 source) Start: 07-07-2022 End: 07-12-2022 take 2 tablets by mouth once daily predniSONE 20 mg Tab 40 mg = 2 tab(s), Oral, Daily, X 5 day(s), # 10 tab(s), Refills(s) 0, Pharmacy: [facility]/pharmacy #[id number], 160, cm, 07/07/22 9:38:00 EDT, Height/Length [...] nausea/vomiting, # 12 tab(s), Refills(s) 0, Pharmacy: [facility]/pharmacy #[id number], 160, cm, 09/22/23 5:34:00 EDT, Height/Length Dosing, 72.4, kg, 09/22/23 5:34:00 EDT, Weight Dosing Start Date: 09/22/23 Status: Ordered valACYclovir 500 mg oral tablet (20 sources) Herpesvirus Nucleoside Analog DNA Polymerase Inhibitor, Herpes Simplex Virus Nucleoside Analog DNA Polymerase Inhibitor, Herpes Zoster Virus Nucleoside Analog DNA Polymerase Inhibitor Start: 12-08-2023 Valacyclovir Active MG PO December 08, 2023 12:00am Start: 03-12-2019 End: 08-21-2024 take 1 tablet by mouth once daily valACYclovir (Valtrex) 500 MG tablet Indications: Herpes simplex Take 1 tablet (500 mg) by mouth Daily 30 tablet 5 02/23/2024 08/21/2024 Active Completed/Discontinued Medications Medication Drug Class(es) Dates Sig (Normalized) Sig (Original) amoxicillin 875 mg oral tablet (10 sources) Penicillin-class Antibacterial Start: 12-08-2023 End: 02-08-2024 take 1 tablet by mouth in the morning amoxicillin (Amoxil) 875 MG tablet Take 875 mg by mouth in the morning and 875 mg before bedtime. 12/08/2023 02/08/2024 Discontinued (Therapy completed) azithromycin 250 mg oral tablet (2 sources) [...] Hemorrhage during ; abruptio placenta; placenta previa (11 sources) Placenta previa partialis; Translations: [Partial placenta previa NOS or without hemorrhage, unspecified trimester] Onset: 12-16-2023 12-14-2023 Episodic Mood disorders (4 sources) Depression 05-25-2013 Chronic Other circulatory disease (1 source) History of clinical finding in subject; Translations: [Personal history of other diseases of the circulatory system] 01-02-2024 Episodic Other circulatory disease (1 source) Personal history of other diseases of the circulatory system; Translations: [Personal history of other diseases of the circulatory system] Onset: 02-02-2024 Episodic Other complications of (1 source) Vomiting of ; Translations: [Vomiting of , unspecified] Onset: 09-22-2023 Episodic Other complications of (1 source) Complication of , childbirth and/or the puerperium; Translations: [Other specified diseases and conditions complicating ] Onset: 09-22-2023 Episodic Other complications of (2 sources) size does not accord with dates; Translations: [Uterine size-date discrepancy, unspecified trimester] 02-23-2024 Episodic Other connective tissue disease (1 source) [...] 07-07-2022 Chronic Other and delivery including normal (10 sources) Second trimester ; Translations: [Encounter for supervision of normal , unspecified, second trimester] 12-14-2023 Episodic Other screening for suspected conditions (not mental disorders or infectious disease) (11 sources) No current problems or disability; Translations: [Patient encounter status] Onset: 01-02-2024 08-30-2013 Episodic Otitis media and related conditions (4 sources) Otitis media 03-12-2019 Episodic Residual codes; unclassified (2 sources) Gestation period, 20 weeks; Translations: [20 weeks gestation of ] 12-14-2023 Episodic Residual codes; unclassified (2 sources) Gestation period, 24 weeks; Translations: [24 weeks gestation of ] 01-11-2024 Episodic Residual codes; unclassified (2 sources) Gestation period, 28 weeks; Translations: [28 weeks gestation of ] 02-08-2024 Episodic Residual codes; unclassified (2 sources) Gestation period, 30 weeks; Translations: [30 weeks gestation of ] 02-23-2024 Episodic Unclassified (18 sources) OB Reminders Onset: 09-29-2023 09-29-2023 Unclassified (1 source) partial placenta previa Onset: 01-02-2024 Viral infection (1 source) Anogenital herpesviral infection; 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, 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 Viral infection (2 sources) Herpes simplex; Translations: [Herpesviral infection, unspecified] 02-23-2024 Episodic Past or Other Problems Problem Classification Problem Date Documented Da te Episodic/Chronic Immunizations and screening for infectious disease (2 sources) Exposure to sexually transmissible disorder; Translations: [Contact with and (suspected) exposure to infections with a predominantly sexual mode of transmission] 11-16-2023 Episodic Unclassified (1 source) History of clinical finding in subject 01-02-2024 Results Test Name Value Interpretation Reference Range Facility Urinalysis macro (dipstick) panel (U)on 02-08-2024 Bilirubin, UA Negative Negative - 4(70) +++ mg/dL [facility] Blood, UA Negative Negative - 50 Raul/mcL [facility] Clarity, UA Clear [facility] Color, UA Yellow [facility] Glucose, UA Negative Negative - 2000(110) ++++ mg/dL [facility] Interpretation and review of laboratory results Abnormal [facility] Ketones, UA Positive Negative - 160(16) ++++ mg/dL [facility] Comment on above: trace Leukocytes, UA Negative Negative - 500+++ Anitra/mcL [facility] Nitrite, UA Negative Negative - Positive [facility] pH, UA 6 5 - 9 [facility] Protein, UA Negative Negative - 2000(20) ++++ mg/dL [facility] Spec Grav, UA 1.03 1 - 1.03 [facility] Urobilinogen, UA 0.2 0.2 - 12 mg/dL [facility] GLUCOSE TOLERANCE 3 HOURon 1 04-02-2023 GLUCOSE TOLERANCE 3 HOUR mg/dL [facility] Comment on above: GLU FAST 88 (<95) Co l: 02/01/24 1310 GLU 1HR 177 (<180) Col: 02/01/24 1412 GLU 2HR 131 (<155) Col: 02/01/24 1512 GLU 3HR 106 (<140) Col: 02/01/24 1612 [facility] ALL CBC WITH AUTO DIFFon BASOPHILS ABSOLUTE AUTO [address] [facility] Basophils/100 WBC (Bld) 0.2 % 0.2 - 2.0 % [facility] Eosinophils/100 WBC (Bld) 0.8 % Low 0.9 - 7.0 % [facility] Erythrocyte distribution width (RBC) [Ratio] 12.4 % 11.0 - 15.0 % [facility] Hematocrit (Bld) [Volume fraction] 34.2 % Low 36.0 - 48.0 % [facility] Hemoglobin (Bld) [Mass/Vol] 11.7 g/dL Low 12.0 - 16.0 g/dL [facility] IMMATURE GRANULOCYTES ABS AUTO 0.2 High [facility] Immature granulocytes/100 WBC (Bld) 1.5 % High 0.0 - 0.5 % [facility] LYMPHOCYTES ABSOLUTE AUTO 2.7 [facility] Lymphocytes/100 WBC (Bld) 20.2 % Low 20 .5 - 60.0 % [facility] MCH (RBC) [Entitic mass] 31.4 pg 26. 7 - 34.0 pg [facility] MCHC (RBC) [Mass/Vol] 34.2 g/dL 29.9 - 35.2 g/dL [facility] MCV (RBC) [Entitic vol] 91.7 fL 81.0 - 99.0 fL [facility] MONOCYTES ABSOLUTE AUTO 0.[address] [facility] Monocytes/100 WBC (Bld) 6.2 % 1.7 - 12.0 % [facility] NEUTROPHILS ABSOLUTE AUTO 9.4 High [facility] Neutrophils/100 WBC (Bld) 71.1 % 43 .0 - 75.0 % [facility] Platelet mean volume (Bld) [Entitic vol] 9 fL Low 9.5 - 13.5 fL [facility] EO # 0.1 [facility] PLT 320 [facility] RBC 3.73 Low [facility] WBC 13.2 High [facility] GLUCOSE 1 HOURon 01-28-2024 Glucose [Mass/Vol] 140 mg/dL High NINF - 13 0 mg/dL [facility] No Panel Informationon 01-27 Interpretation and review of laboratory results Abnormal [facility] Urinalysis macro (dipstick) panel (U)on 01-11-2024 Bilirubin, UA Negative Negative - 4(70) +++ mg/dL [facility] Blood, UA Negative Negative - 50 Raul/mcL [facility] Clarity, UA Clear [facility] Color, UA Yellow [facility] Glucose, UA Negative Negative - 1999(110) ++++ mg/dL [facility] Interpretation and review of laboratory results Normal [facility] Ketones, UA Negative Negative - 160(16) ++++ mg/dL [facility] Leukocytes, UA Negative Negative - 500+++ Anitra/mcL [facility] Nitrite, UA Negative Negative - Positive [facility] pH, UA 55 5 - 9 [facility] Protein, UA Negative Negative - 1999(20) ++++ mg/dL [facility] Spec Grav, UA 1.02 1 - 1.03 [facility] Urobilinogen, UA 1.0 0.2 - 12 mg/dL [facility] Urinalysis macro (dipstick) panel (U)on 12-14-2023 Bilirubin, UA Negative Negative - 4(70) +++ mg/dL [facility] Blood, UA Negative Negative - 50 Raul/mcL [facility] Clarity, UA Clear [facility] Color, UA Yellow [facility] Glucose, UA Negative Negative - 1999(110) ++++ mg/dL [facility] Interpretation and review of laboratory results Normal [facility] Ketones, UA Negative Negative - 160(16) ++++ mg/dL [facility] Leukocytes, UA Negative Negative - 500+++ Anitra/mcL [facility] Nitrite, UA Negative Negative - Positive [facility] pH, UA 5.5 5 - 9 [facility] Protein, UA Negative Negative - 1999(20) ++++ mg/dL [facility] Spec Grav, UA 1.025 1 - 1.03 [facility] Urobilinogen, UA 0.2 0.2 - 12 mg/dL [facility] No Panel InformationOrdered By: Christopher Ma on 12-08-2023 Quick Strep (POC) [facility] IGP,APTIMA HPV,AGE GDLNon AGE GDLN ACOG TESTING Note . [facility] Comment on above: TESTS RESULT FLAG UN ITS REF RANGE LAB Clinician Provided Cytology Information Source.............Cervix No. of containers..01 ThinPrep Vial Age Stewart ROSARIO Radha... FLAG LEGEND: L-Low Normal,H-High Normal,LL-Alert Low,HH-Alert High <-Panic Low,>-Panic High,A-Abnormal,AA-Critical Abnormal Performed at: 01 =[address] [address] Luz Marina Swann MD, IGP, RFX APTIMA HPV ASCU Note . [facility] Comment on above: TESTS RESULT FLAG UN ITS REF RANGE LAB DIAGNOSIS: 02 NEGATIVE FOR INTRAEPITHELIAL LESION OR MALIGNANCY. Specimen adequacy: 02 Satisfactory for evaluation. No endocervical component is identified. Performed by: 02 Juvenal Paige, Tie Binder ([facility] . 02 Note: Note 02 The Pap smear is a screening test designed to aid in the detection of premalignant and malignant conditions of the uterine cervix. It is not a diagnostic procedure and should not be used as the sole means of detecting cervical cancer. Both false-positive and false-negative reports do occur. Test Methodology: Note 02 This liquid based ThinPrep(R) pap test was screened with the use of an image guided system. . 02 The HPV DNA reflex criteria were not met with this specimen result therefore, no HPV testing was performed. FLAG LEGEND: L-Low Normal,H-High Normal,LL-Alert Low,HH-Alert High <-Panic Low,>-Panic High,A-Abnormal,AA-Critical Abnormal Performed at: [address] [address] Luz Marina Swann MD, Performed at: =[address] [id number] Embedded Software Programmer: Luz Marina Swann MD, Phone: [phone] Performed at: [address] [id number] Embedded Software Programmer: Luz Marina Swann MD, Phone: [phone] SPATULA-ALONE CERVIX [facility] URETHRITIS/DISCHARGE PLUS VA GINITIS (HTRX)on 11-19-2023 ATOPOBIUM VAGINAE 30.582 Abnormal [facility] ATOPOBIUM VAGINAE Detected Abnormal [facility] BVAB 2,3 (BACTERIAL VAGINOSIS ASSOCIATED BACTERIA 2, 3); MOBILUNCUS SPP 22.805 Abnormal [facility] BVAB 2,3 (BACTERIAL VAGINOSIS ASSOCIATED BACTERIA 2, 3); MOBILUNCUS SPP Detected Abnormal [facility] KEVIN ALBICANS, PARAPSILOSIS, TROPICALIS 0.000 [facility] KEVIN ALBICANS, PARAPSILOSIS, TROPICALIS Not detected [facility] KEVIN GLABRATA 0.000 [facility] KEVIN GLABRATA Not detected [facility] KEVIN KRUSEI 0.000 [facility] KEVIN KRUSEI Not detected [facility] CHLAMYDIA TRACHOMATIS 0.000 [facility] CHLAMYDIA TRACHOMATIS Not detected [facility] ERMB, C; MEFA 25.492 Abnormal [facility] ERMB, C; MEFA Detected Abnormal [facility] GARDNERELLA VAGINALIS 27.081 Abnormal [facility] GARDNERELLA VAGINALIS Detected Abnormal [facility] Interpretation and review of laboratory results Abnormal [facility] MEGASPHAERA (TYPES 1, 2) 0.000 [facility] MEGASPHAERA (TYPES 1, 2) Not [facility] MYCOPLASMA GENITALIUM 0.000 [facility] MYCOPLASMA GENITALIUM Not detected N [facility] NEISSERIA GONORRHOEAE 0.000 [facility] NEISSERIA GONORRHOEAE Not detected N [facility] TET B, TET M 23.652 Abnormal [facility] TET B, TET M Detected Abnormal [facility] TRICHOMONAS VAGINALIS 0.000 [facility] TRICHOMONAS VAGINALIS Not detected N [facility] Urinalysis macro (dipstick) panel (U)on 11-16-2023 Bilirubin, UA Positive Negative - 4(70) +++ mg/dL [facility] Comment on above: small Blood, UA Negative Negative - 50 Raul/mcL [facility] Clarity, UA Clear [facility] Color, UA Yellow [facility] Glucose, UA Negative Negative - 2000(110) ++++ mg/dL [facility] Interpretation and review of laboratory results Normal [facility] Ketones, UA Positive Negative - 160(16) ++++ mg/dL [facility] Comment on above: trace Leukocytes, UA Negative Negative - 500+++ Anitra/mcL [facility] Nitrite, UA Negative Negative - Positive [facility] pH, UA 5.5 5 - 9 [facility] Protein, UA Negative Negative - 2000(20) ++++ mg/dL [facility] Spec Grav, UA 1.030 1 - 1.03 [facility] Urobilinogen, UA 1.0 0.2 - 12 mg/dL [facility] C Urineon 09-24-2023 Bacteria identified Cx [facility] (U) Microbiology PROCEDURE: Urine Culture [R1] SOURCE: U CleanCatch BODY SITE: COLLECTED DATE/TIME: 09/22/2023 05:47 EDT RECEIVED DATE/TIME: 09/22/2023 08:16 EDT START DATE/TIME: 09/22/2023 08:16 EDT FREE TEXT SOURCE: Rodrigo Berg DO, DO, Noah S. FINAL REPORTS Final Report [] Verified Date/Time: 09/24/2023 09:48 EDT <10,000 cfu/ml Mixed skin contaminants Performing Locations R1: This test was performed at: [facility], [address] [place] [address], [address] , [place], [facility] Comment on above: Performed By: #### 2 [id number] #### [facility] [address] [place] [address] BMPon 09-22-2023 Anion gap [Moles/Vol] 13 mmol/L Normal 6-16 [facility] Comment on above: Performed By: #### 2 [id number] #### [facility] [address] [place] [address] Calcium [Mass/Vol] 8.9 mg/dL Normal 8.9-11.1 [facility] Comment on above: Performed By: #### 2 [id number] #### [facility] [address] [place] [address] Chloride [Moles/Vol] 103 mmol/L Normal 101-111 [facility] Comment on above: Performed By: #### 2 [id number] #### [facility] [address] [place] [address] CO2 [Moles/Vol] 21 mmol/L Normal 21-[address] [facility] Comment on above: Performed By: #### 2 [id number] #### [facility] [address] [place] [address] Creatinine [Mass/Vol] 0.6 mg/dL Normal 0.5-1.3 [facility] Comment on above: Performed By: #### 2 [id number] #### [facility] [address] [place] [address] Glucose [Mass/Vol] 89 mg/dL Normal 55-199 [facility] Comment on above: Performed By: #### 2 [id number] #### [facility] [address] [place] [address] Potassium [Moles/Vol] 3.5 mmol/L Normal 3.5-5.3 [facility] Comment on above: Performed By: #### 2 [id number] #### [facility] [address] [place] [address] Sodium [Moles/Vol] 133 mmol/L Low 135-145 [facility] Comment on above: Performed By: #### 2 [id number] #### [facility] [address] [place] [address] Urea nitrogen [Mass/Vol] 5 mg/dL Normal 5-21 [facility] Comment on above: Performed By: #### 2 [id number] #### [facility] [address] [place] [address] Urea nitrogen/Creatinine [Mass ratio] 8 No Units Low 10-20 [facility] Comment on above: Performed By: #### 2 [id number] #### [facility] [address] [place] [address] CBC w/ Auto Diffon 4 Basophils/100 WBC (Bld) 0.2 % Normal 0.0-2.0 [facility] Comment on above: Performed By: #### 2 [id number] #### [facility] [address] [place] [address] Basophils/Leukocytes Auto (Bld) [Pure # fraction] 0.0 E9/L Normal 0.0-0.2 [facility] Comment on above: Performed By: #### 2 [id number] #### [facility] [address] [place] [address] Eosinophils (Bld) [#/Vol] 0.1 E9/L Normal 0.0-0.5 [facility] Comment on above: Performed By: #### 2 [id number] #### [facility] [address] [place] [address] Eosinophils/100 WBC (Bld) 0.7 % Normal 0.0-8.0 [facility] Comment on above: Performed By: #### 2 [id number] #### [facility] [address] [place] [address] Erythrocyte distribution width (RBC) [Ratio] 13.1 % Normal 10.9-14.2 [facility] Comment on above: Performed By: #### 2 [id number] #### [facility] [address] [place] [address] Hematocrit (Bld) [Volume fraction] 39.9 % Normal 34.0-46.0 [facility] Comment on above: Performed By: #### 2 [id number] #### [facility] [address] [place] [address] Hemoglobin (Bld) [Mass/Vol] 14.0 g/dL Normal 12.0-16.0 [facility] Comment on above: Performed By: #### 2 [id number] #### [facility] [address] [place] [address] Lymphocytes (Bld) [#/Vol] 1.8 E9/L Normal 1.0-4.0 [facility] Comment on above: Performed By: #### 2 [id number] #### [facility] [address] [place] [address] Lymphocytes/100 WBC (Bld) 18.5 % Normal 14.0-50.0 [facility] Comment on above: Performed By: #### 2 [id number] #### [facility] [address] [place] [address] MCH (RBC) [Entitic mass] 31.9 pg Normal 27.0-34.0 [facility] Comment on above: Performed By: #### 2 [id number] #### [facility] [address] [place] [address] MCHC (RBC) [Mass/Vol] 35.2 g/dL Normal 31.4-36.0 [facility] Comment on above: Performed By: #### 2 [id number] #### [facility] [address] [place] [address] MCV (RBC) [Entitic vol] 90.5 fL Normal 80.0-100.[address] [facility] Comment on above: Performed By: #### 2 [id number] #### [facility] [address] [place] [address] Monocytes (Bld) [#/Vol] 0.5 E9/L Normal 0.2-1.0 [facility] Comment on above: Performed By: #### 2 664755 #### [facility] [address] [place] [address] Neutrophils (Bld) [#/Vol] 7.3 E9/L Normal 2.0-7.5 [facility] Comment on above: Performed By: #### 2 446866 #### [facility] [address] [place] [address] Neutrophils/100 WBC (Bld) 75.5 % High 36.0-75.0 [facility] Comment on above: Performed By: #### 2 149384 #### [facility] [address] [place] [address] Platelet 415.0 E9/L Normal 150.0-500.0 [facility] Comment on above: Performed By: #### 2 [id number] #### [facility] [address] [place] [address] Platelet mean volume (Bld) [Entitic vol] 6.6 fL Normal 6.4-10.8 [facility] Comment on above: Performed By: #### 2 [id number] #### [facility] [address] [place] [address] RBC (Bld) [#/Vol] 4.4 E12/L Normal 4.3-5.9 [facility] Comment on above: Performed By: #### 2 [id number] #### [facility] [address] [place] [address] WBC corrected for nucl RBC Auto (Bld) [#/Vol] 9.7 E9/L Normal 4.0-11.[address] [facility] Comment on above: Performed By: #### 2 [id number] #### [facility] [address] [place] [address] CHEMISTRYOrdered By: SYSTEM SYSTEM on 09-22-2023 Albumin [...] 2023 ED Clinical Summary ED Clinical Summary [place] [id number] ED Clinical Summary Person Information Name: [facility] Age: 22 Years : 2000 Sex: Female Language: Belgian PCP: NONE, XXXX Marital Status: Single Visit [...] 09/22/2023 07:17:18 09/22/2023 07:17:18 09/22/2023 07:17:18 ADDRESS: [address] [place] [id number] PHYS DOC NOTES: MEDICAL INFORMATION: Prescriptions Given: New Medications [id number], [address] [place], [place] [id number], [phone] cephalexin (Keflex 500 mg Cap) 1 Capsules [...] Follow up: With: Address: When: Erinn PROCTOR [facility], [address] [place] [address] [place] [address] [employer] (1) In 3 days 09/25/2023 DIAGNOSIS: Asymptomatic bacteriuria during ; Bacteriuria; Nausea and vomiting during Normal [facility] ED Note-Physicianon 09-22-19 ED Note-Physician ED Note-Physician Basic Information Time Seen: Morena Rodrigo PowellMelina 09/22/2023 05:27 Chief Complaint Pt arrives from [...] that she was prescribed Zofran by her [employer] but is still having nausea and vomiting [...] and Complexity of Problems Differential Diagnosis: [] [facility] Data External documents reviewed: N/A My [...] follow-up close with Dr. Proctor her established [employer]. Shared decision making: As above Code status: N/A Assessment/Plan Asymptomatic bacteriuria during (O99.891: Other specified diseases and conditions complicating ) Bacteriuria (R82.71: Bacteriuria) Nausea and vomiting during (O21.9: Vomiting of , unspecified) Orders: cephalexin, 500 mg = 1 cap(s), Oral, q12hr, X 5 day(s), # 10 cap(s), Refills(s) 0, Pharmacy: [facility]/pharmacy #[id number], 160, cm, 09/22/23 5:34:00 EDT, Height/Length Dosing, 72.4, kg, 09/22/23 5:34:00 EDT, Weight Dosing Lactated Ringers Injection, 1,000 mL, Soln-IV, IV, Once, Stop date 09/22/23 5:38:00 EDT, STAT, Start date 09/22/23 5:38:00 EDT, mL/hr, Infuse over 61, minute(s) promethazine, 12.5 mg = 1 tab(s), Oral, q8hr, PRN as needed for nausea/vomiting, # 12 tab(s), Refills(s) 0, Pharmacy: [facility]/pharmacy #[id number], 160, cm, 09/22/23 5:34:00 EDT, Height/Length [...] Cult Rflx Urine Culture Medications Administered Given [id number] [F], 1000 mL, IV Sodium Chloride 0.9% IV Kaylyn 50 mL [F] 50 mL + [id number] [F] 12.5 mg, IV Piggyback Disposition Plan Discharge Prescription List Prescriptions Keflex 500 mg Cap, 500 mg= 1 cap(s), Oral, q12hr promethazine 12.5 mg oral tablet, 12.5 mg= 1 tab(s), Oral, q8hr, PRN Follow-up With When Contact Information Erinn PROCTOR In 3 days 09/25/[address] , [place] [address]- Business (1) Additional Instructions: Patient Education Morning Sickness Asymptomatic Bacteriuria Problem List/Past Medical History Ongoing Anxiety History of cold sores Right otitis media Historical Denies Depression Procedure/Surgical History None. Medications Inpatient LR 1000 mL Bolus, 1000 mL, IV, Once promethazine additive 12.5 mg + Sodium Chloride 0.9% IV Kaylyn 50 (more content not included)... Normal [facility] Comment on above: Result Comment: Elec tronically Signed By: Rodrigo Berg DO\.br\Date and Time Signed: 09/22/23 06:44 EDT ED Patient Summaryon 024 ED Patient Summary ED Patient Summary [address] [address] Patient Discharge Instructions Person Information Name: ERICKA ALEMAN Age: 22 Years Arrival Date: 09/22/2023 05:24:18 Discharge Diagnosis: Asymptomatic bacteriuria during ; Bacteriuria; Nausea and vomiting during Primary Care Physician: NONE, XXXX Provider Information Primary Provider: Rodrigo Berg DO Advanced [employer] Music Teacher:None The exam and treatment you received in the Emergency Department were for an urgent problem and are not intended as complete care. It is important that you follow up with a doctor, nurse practitioner, or physician?s data control assistant for ongoing care. If your symptoms become worse or you do not improve as expected and you are unable to reach your usual health care provider, you should return to the Emergency Department. We are available 24 hours a day. ERICKA ALEMAN has been given the following list of patient education materials, prescriptions and follow-up instructions: Follow-up Instructions: With: [facility]: [facility] [address] [place] [address] , [place] [address] Business (1) In 3 days 09/25/2023 In the event that this physician does not participate in your insurance network, please consult with your insurance company to find a nearby participating provider. Patient Education Materials: Morning Sickness; Asymptomatic Bacteriuria A MESSAGE TO ALL PATIENTS REGARDING OPIOIDS PRESCRIPTION OPIOIDS: WHAT YOU NEED TO KNOW Prescription opioids can be used to help relieve mlflkviz-ix-ajqzxc pain and are often prescribed following a [...] tell y (more content not included)... Normal [facility] HEMATOLOGYOrdered By: SYSTEM SYSTEM on 09-22-2023 Basophils/100 [...] 09-22-2023 Albumin [Mass/Vol] 4.2 g/dL Normal 3.3-5.0 [facility] Comment on above: Performed By: #### 2 [id number] #### [facility] [address] [place] [address] Albumin/Globulin (S) [Mass conc ratio] 1.3 Normal 1.1-2.2 [facility] Comment on above: Performed By: #### 2 [id number] #### [facility] [address] [place] [address] ALP [Catalytic activity/Vol] 68 Int._Unit/L Normal 21-98 [facility] Comment on above: Performed By: #### 2 [id number] #### [facility] [address] [place] [address] ALT No additional P-5'-P [Catalytic activity/Vol] 18 Int._Unit/L Normal 6-46 [facility] Comment on above: Performed By: #### 2 [id number] #### [facility] [address] [place] [address] AST [Catalytic activity/Vol] 17 Int._Unit/L Normal 5-43 [facility] Comment on above: Performed By: #### 2 [id number] #### [facility] [address] [place] [address] Bilirubin [Mass/Vol] 0.5 mg/dL Normal 0.0-1.1 [facility] Comment on above: Performed By: #### 2 [id number] #### [facility] [address] [place] [address] Bilirubin.direct [Mass/Vol] 0.1 mg/dL Normal 0.0-0.4 [facility] Comment on above: Performed By: #### 2 [id number] #### [facility] [address] [place] [address] Bilirubin.indirect [Mass or moles/Vol] 0.4 mg/dL Normal 0.1-0.9 [facility] Comment on above: Performed By: #### 2 [id number] #### [facility] [address] [place] [address] Globulin (S) [Mass/Vol] 3.2 g/dL Normal 1.4-4.[address] [facility] Comment on above: Performed By: #### 2 [id number] #### [facility] [address] [place] [address] Protein [Mass/Vol] 7.4 g/dL Normal 6.0-7.8 [facility] Comment on above: Performed By: #### 2 [id number] #### [facility] [address] [place] [address] Lipase Levelon 09-22-2023 Lipase [Catalytic activity/Vol] 30 U/L Normal 13-58 [facility] Comment on above: Performed By: #### 2 [id number] #### [facility] [address] [place] [address] UA with Cult Rflxon 09-22-19 24 Bacteria Auto Ql (U) 2+ /HPF Abnormal Trace [facility] Comment on above: Performed By: #### 4 [id number] #### [facility] [address] [place] [address] Bilirubin Ql (U) Negative Normal Negative [facility] Comment on above: Performed By: #### 4 [id number] #### [facility] [address] [place] [address] Clarity (U) Ex.Turbid Abnormal Clear [facility] Comment on above: Performed By: #### 4 [id number] #### [facility] [address] [place] [address] Color (U) Yellow Normal Yellow [facility] Comment on above: Result Comment: Micr oscopic readings are only performed on those samples that meet specific criteria set forth by [facility]. Performed By: #### 4 [id number] #### [facility] [address] [place] [address] Epithelial cells.squamous Auto (Urine sed) [#/Area] >10 Invalid Interpretation Code [facility] Comment on above: Performed By: #### 4 [id number] #### [facility] [address] [place] [address] Glucose Ql (U) Negative Normal Negative [facility] Comment on above: Performed By: #### 4 [id number] #### [facility] [address] [place] [address] Hemoglobin Auto test strip (U) [Mass/Vol] Negative Normal Negative [facility] Comment on above: Performed By: #### 4 [id number] #### [facility] [address] [place] [address] Ketones Auto test strip Ql (U) 4+ mg/dL Abnormal Negative [facility] Comment on above: Performed By: #### 4 [id number] #### [facility] [address] [place] [address] Leukocyte esterase Auto test strip Ql (U) 250 Anitra/uL Abnormal Negative [facility] Comment on above: Performed By: #### 4 [id number] #### [facility] [address] [place] [address] Mucus Auto Ql (U) 3+ Abnormal Negative [facility] Comment on above: Performed By: #### 4 [id number] #### [facility] [address] [place] [address] Nitrite Auto test strip Ql (U) Negative Normal Negative [facility] Comment on above: Performed By: #### 4 [id number] #### [facility] [address] [place] [address] pH (U) 6.0 [pH] Invalid Interpretation Code 5.0-9.0 [facility] Comment on above: Performed By: #### 4 [id number] #### [facility] [address] [place] [address] Protein Ql (U) Trace Abnormal Negative [facility] Comment on above: Performed By: #### 4 [id number] #### [facility] [address] [place] [address] Specific gravity (U) [Rel density] 1.023 Invalid Interpretation Code 1.005-1.030 [facility] Comment on above: Performed By: #### 4 [id number] #### [facility] [address] [place] [address] Urobilinogen (U) [Mass/Vol] Negative Normal Negative [facility] Comment on above: Performed By: #### 4 [id number] #### [facility] [address] [place] [address] WBC Auto (Urine sed) [#/Area] 31-75 Abnormal 0-5 [facility] Comment on above: Performed By: #### 4 [id number] #### [facility] [address] [place] [address] Type of Urine collection method Clean Catch Normal [facility] Comment on above: Performed By: #### 4 [id number] #### [facility] [address] [place] [address] URINALYSISOrdered By: Jennifer Santacruz on 09-22-2023 Bacteria Auto Ql (U) 2+ /HPF Invalid Interpretation Code Trace/HPF FT UA Auto SS Bilirubin Ql (U) Negative [...] that meet specific criteria set forth by [facility]. Epithelial cells.squamous Auto (Urine sed) [#/Area] [...] Desc Clean Catch (09/22/23 5:47 AM) Normal [facility] UA Auto SS Work Phone: eGFRon 09-22-2023 eGFR 128 mL/min/1.73 m2 Normal >=59 [facility] Comment on above: Order Comment: Order added by Discern Expert. Performed By: #### 1 [id number] #### [facility] [address] [place] [address] PAP [id number] 07-19-2023 Cytology report Cyto stain Doc (Cvx/Vag) Note Invalid Interpretation Code [facility] Comment on above: Result Comment: TEST S RESULT FLAG UNITS REF RANGE LAB Clinician Provided Cytology Information Source.............Endocervix No. of containers..01 ThinPrep Vial DIAGNOSIS: 01 NEGATIVE FOR INTRAEPITHELIAL LESION OR MALIGNANCY. Specimen adequacy: 01 Satisfactory for evaluation. Endocervical and/or squamous metaplastic cells (endocervical component) are present. Performed by: 01 Puneet Elise, Tie Binder ([facility] . 01 Note: Note 01 The Pap smear is a screening test designed to aid in the detection of premalignant and malignant conditions of the uterine cervix. It is not a diagnostic procedure and should not be used as the sole means of detecting cervical cancer. Both false-positive and false-negative reports do occur. Test Methodology: Note 01 The Pidgon(R) Dogger was unable to read this specimen. Therefore a manual review was performed. . 01 The HPV DNA reflex criteria were not met with this specimen result therefore, no HPV testing was performed. FLAG LEGEND: L-Low Normal,H-High Normal,LL-Alert Low,HH-Alert High <-Panic Low,>-Panic High,A-Abnormal,AA-Critical Abnormal Performed at: [facility] [place] [address] Luz Marina Swann MD, Performed at: [facility] [id number] MD Shree Raza Performed By: #### 3 [id number] #### [facility] [address] [place] [address] PAP [id number] 07-16-2023 Collection Technique BRUSH-SPATULA Normal [facility] Comment on above: Performed By: #### 3 [id number] #### [facility] [address] [place] [address] Gynecological Body Site ENDOCERVIX Normal [facility] Comment on above: Performed By: #### 3 [id number] #### [facility] [address] [place] [address] Physician Orderon 07-14-2023 Physician Order [id number] Normal [facility] DHEA SERUMon 08-11-2021 Dehydroepiandrosterone (DHEA) 339 ng/dL Normal 31-701 [facility] Comment on above: Result Comment: Age [...] 89 Performed By: #### Justin SERRANO. #### [facility] [address] [place] [address] Dr. Austen Hernadez DHEA-SULFATEon 08-01-2021 DHEA-Sulfate 247.0 ug/dL Normal 110.0-431.7 [facility] Comment on above: Performed By: #### Justin LEBLANC #### [facility] [address] [address] [address] Austen Hernadez FSHon 08-01-2021 FSH 1.6 mIU/mL Normal [facility] Comment on above: Result Comment: Adul t Female: Follicular phase 3.5 - 12.5 Ovulation phase 4.7 - 21.5 Luteal phase 1.7 - 7.7 Postmenopausal 25.8 - 134.8 Performed By: #### L [facility] #### [facility] [address] [address] [address] Austen Hernadez LUTEINIZING HORMONE (LH)on 0 5-21-2022 LH 2.6 mIU/mL Normal [facility] Comment on above: Result Comment: Adul t Female: Follicular phase 2.4 - 12.6 Ovulation phase 14.0 - 95.6 Luteal phase 1.0 - 11.4 Postmenopausal 7.7 - 58.5 Performed By: #### L BCL #### [facility] [address] [place] [address] Dr. Austen Hernadez CBC AUTO DIFFon 07-30-2021 BASO # 0.0 103/ul Normal 0.0-0.1 [facility] Comment on above: Performed By: #### C BC #### [facility] [address] [place] [address] Dr. Austen Hernadez Basophils/100 WBC (Bld) 0.2 % Normal 0.2-2.0 [facility] Comment on above: Performed By: #### C BC #### [facility] [address] [place] [address] Dr. Austen Hernadez EO # 0.1 103/ul Normal 0.0-0.7 [facility] Comment on above: Performed By: #### C BC #### [facility] [address] [place] [address] Dr. Austen Hernadez Eosinophils/100 WBC (Bld) 1.2 % Normal 0.9-7.0 [facility] Comment on above: Performed By: #### C BC #### [facility] [address] [place] [address] Dr. Austen Hernadez Erythrocyte distribution width (RBC) [Ratio] 12.1 % Normal 11.0-15.0 [facility] Comment on above: Performed By: #### C BC #### [facility] [address] [place] [address] Dr. Austen Hernadez Hematocrit (Bld) [Volume fraction] 40.2 % Normal 36.0-48.0 [facility] Comment on above: Performed By: #### C BC #### [facility] [address] [place] [address] Dr. Austen Hernadez Hemoglobin (Bld) [Mass/Vol] 13.3 g/dL Normal 12.0-16.0 [facility] Comment on above: Performed By: #### C BC #### [facility] [address] [place] [address] Dr. Austen Hernadez IG # 0.04 10e3/ul Critically high 0.00-0.03 [facility] Comment on above: Performed By: #### C BC #### [facility] [address] [place] [address] Dr. Austen Hernadez IG % 0.5 % Normal 0.0-0.5 [facility] Comment on above: Performed By: #### C BC #### [facility] [address] [place] [address] Dr. Austen Hernadez LYMPH # 1.7 103/ul Normal 1.2-3.8 [facility] Comment on above: Performed By: #### C BC #### [facility] [address] [place] [address] Dr. Austen Hernadez Lymphocytes/100 WBC (Bld) 20.1 % Critically low 20.5-6 0.0 [facility] Comment on above: Performed By: #### C BC #### [facility] [address] [place] [address] Dr. Austen Hernadez MANUAL DIFF REQ NO Normal [facility] Comment on above: Performed By: #### C BC #### [facility] [address] [place] [address] Dr. Austen Hernadez MCH (RBC) [Entitic mass] 30.0 pg Normal 26.7-34.0 [facility] Comment on above: Performed By: #### C BC #### [facility] [address] [place] [address] Dr. Austen Hernadez MCHC (RBC) [Mass/Vol] 33.1 g/dL Normal 29.9-35.2 [facility] Comment on above: Performed By: #### C BC #### [facility] [address] [place] [address] Dr. Austen Hernadez MCV (RBC) [Entitic vol] 90.5 fL Normal 81.0-99.0 [facility] Comment on above: Performed By: #### C BC #### [facility] [address] [address] [address] Austen Hernadez MONO # 0.5 103/ul Normal 0.3-0.8 [facility] Comment on above: Performed By: #### C BC #### [facility] [address] [address] [address] Austen Hernadez Monocytes/100 WBC (Bld) 5.8 % Normal 1.7-12.0 [facility] Comment on above: Performed By: #### C BC #### [facility] [address] [place] [address] Dr. Austen Hernadez NEUT # 6.2 103/ul Normal 1.4-6.5 [facility] Comment on above: Performed By: #### C BC #### [facility] [address] [place] [address] Dr. Austen Hernadez Neutrophils/100 WBC (Bld) 72.2 % Normal 43.0-75.0 [facility] Comment on above: Performed By: #### C BC #### [facility] [address] [place] [address] Dr. Austen Hernadez Platelet mean volume (Bld) [Entitic vol] 8.2 fL Critically low 9.5-13.5 [facility] Comment on above: Performed By: #### C BC #### [facility] [address] [place] [address] Dr. Austen Hernadez PLT 350 103/ul Normal 150-450 [facility] Comment on above: Performed By: #### C BC #### [facility] [address] [place] [address] Dr. Austen Hernadez RBC 4.44 106/ul Normal 4.20-5.40 [facility] Comment on above: Performed By: #### C BC #### [facility] [address] [place] [address] Dr. Austen Hernadez WBC 8.6 103/ul Normal 4.0-11.0 [facility] Comment on above: Performed By: #### C BC #### [facility] [address] [address] [address] Austen Hernadez GLYCOHEMOGLOBIN A1Con 2021 ADA RECOMMENDATION SEE BELOW Normal [facility] Comment on above: Result Comment: ADA RECOMMENDED LIMIT 4.0 - 6.0 ADA THERAPEUTIC TARGET < 7.0 ACTION SUGGESTED > 7.0 Performed By: #### A 1C #### [facility] [address] [place] [address] Dr. Austen Hernadez Glucose [Mass/Vol] 108 mg/dL Normal [facility] Comment on above: Performed By: #### A 1C #### [facility] [address] [place] [address] Dr. Austen Hernadez HbA1c (Bld) [Mass fraction] 5.4 % Normal 4.5-6.2 [facility] Comment on above: Performed By: #### A 1C #### [facility] [address] [place] [address] Dr. Austen Hernadez TSHon 07-30-2021 TSH 1.365 uIU/mL Normal 0.358-3.740 [facility] Comment on above: Performed By: #### T SH #### [facility] [address] [place] [address] Dr. Austen Hernadez TSH RANGE SEE BELOW Normal [facility] Comment on above: Result Comment: <0.3 4 UIU/ml HYPERTHYROID 0.34-5.60 UIU/ml EUTHYROID >5.60 UIU/ml HYPOTHYROID Performed By: #### T SH #### [facility] [address] [place] [address] Dr. Austen Hernadez US PELVIS AND TRANSVAGon [...] by: MACARENA GARCIA Date: 2021-07-30 15:31 Normal [facility] Vital Signs Date Time Vital Sign Value Performing Clinician Facility 02-23-2024 15:40-0500 Body mass index (BMI) [Ratio] 30.82 kg/m2 Valentina VARGAS Work Phone: [facility] 02-23-2024 15:40-0500 Body weight 78.93 kg Valentina VARGAS Work Phone: [facility] 02-23-2024 15:40-0500 Diastolic blood pressure 76 mm[Hg] Valentina VARGAS Work Phone: [facility] 02-23-2024 15:40-0500 Systolic blood pressure 116 mm[Hg] Valentina VARGAS Work Phone: [facility] 02-08-2024 15:51-0500 Body mass index (BMI) [Ratio] 30.11 kg/m2 Erinn Hitesh DO Work Phone: [facility] 02-08-2024 15:51-0500 Body weight 77.11 kg Erinn Hitesh DO Work Phone: [facility] 02-08-2024 15:51-0500 Diastolic blood pressure 72 mm[Hg] Erinn Hitesh DO Work Phone: [facility] 02-08-2024 15:51-0500 Systolic blood pressure 118 mm[Hg] Erinn Hitesh DO Work Phone: [facility] 01-11-2024 14:51-0400 Body mass index (BMI) [Ratio] 28.84 kg/m2 Valentina VARGAS Work Phone: [facility] 01-11-2024 14:51-0400 Body weight 73.85 kg Valentina VARGAS Work Phone: [facility] 01-11-2024 14:51-0400 Diastolic blood pressure 64 mm[Hg] Valentina VARGAS Work Phone: [facility] 01-11-2024 14:51-0400 Systolic blood pressure 102 mm[Hg] Valentina VARGAS Work Phone: [facility] 01-02-2024 10:36-0400 Body height 160 cm Moy York MD Work Phone: [facility] 01-02-2024 10:36-0400 Body mass index (BMI) [Ratio] 28.48 kg/m2 Moy York MD Work Phone: [facility] 01-02-2024 10:36-0400 Body weight 72.94 kg Moy York MD Work Phone: [facility] 01-02-2024 10:36-0400 Diastolic blood pressure 64 mm[Hg] Moy York MD Work Phone: [facility] 01-02-2024 10:36-0400 Heart rate 67 /min Moy York MD Work Phone: [facility] 01-02-2024 10:36-0400 Systolic blood pressure 100 mm[Hg] Moy York MD Work Phone: [facility] 12-14-2023 14:35-0400 Body mass index (BMI) [Ratio] 28.48 kg/m2 Erinn Hitesh DO Work Phone: [facility] 12-14-2023 14:35-0400 Body weight 72.92 kg Erinn Hitesh DO Work Phone: [facility] 12-14-2023 14:35-0400 Diastolic blood pressure 66 mm[Hg] Erinn Hitesh DO Work Phone: [facility] 12-14-2023 14:35-0400 Systolic blood pressure 108 mm[Hg] Erinn Hitesh DO Work Phone: [facility] 12-08-2023 17:27-0400 Body height 160.02 cm [facility] 12-08-2023 17:27-0400 Body mass index (BMI) [Ratio] 28.3 kg/m2 [facility] 12-08-2023 17:27-0400 Body temperature 98.6 [degF] [facility] 12-08-2023 17:27-0400 Body weight 72.57 kg [facility] 12-08-2023 17:27-0400 Diastolic blood pressure 69 mm[Hg] [facility] 12-08-2023 17:27-0400 Heart rate 87 /min [facility] 12-08-2023 17:27-0400 SaO2% (BldA) [Mass fraction] 97 % [facility] 12-08-2023 17:27-0400 Systolic blood pressure 107 mm[Hg] [facility] 11-16-2023 16:05-0400 Body mass index (BMI) [Ratio] 26.93 kg/m2 Erinn Hitesh DO Work Phone: [facility] 11-16-2023 16:05-0400 Body weight 68.95 kg Erinn Hitesh DO Work Phone: [facility] 11-16-2023 16:05-0400 Diastolic blood pressure 70 mm[Hg] Erinn Hitesh DO Work Phone: [facility] 11-16-2023 16:05-0400 Systolic blood pressure 118 mm[Hg] Erinn Hitesh DO Work Phone: [facility] 09-22-2023 07:00-0400 Diastolic blood pressure 85 mm[Hg] Rodrigo Morena [facility] 09-22-2023 07:00-0400 Heart rate 58 /min Rodrigo Morena [facility] 09-22-2023 07:00-0400 Mean blood pressure 94 mm[Hg] Rodrigo Morena [facility] 09-22-2023 07:00-0400 SaO2% (BldA) [Mass fraction] 100 % Rodrigo Morena [facility] 09-22-2023 07:00-0400 Systolic blood pressure 113 mm[Hg] Rodrigo Morena [facility] 09-22-2023 06:30-0400 Diastolic blood pressure 67 mm[Hg] Rodrigo Moerna [facility] 09-22-2023 06:30-0400 Heart rate 62 /min Rodrigo Morena [facility] 09-22-2023 06:30-0400 Mean blood pressure 81 mm[Hg] Rodrigo Morena [facility] 09-22-2023 06:30-0400 Respiratory rate 16 /min Rodrigo Morena [facility] 09-22-2023 06:30-0400 SaO2% (BldA) [Mass fraction] 99 % Rodrigo Morena [facility] 09-22-2023 06:30-0400 Systolic blood pressure 110 mm[Hg] Rodrigo Morena [facility] 09-22-2023 05:52-0400 Diastolic blood pressure 66 mm[Hg] Rodrigo Morena [facility] 09-22-2023 05:52-0400 Heart rate 76 /min Rodrigo Morena [facility] 09-22-2023 05:52-0400 Mean blood pressure 80 mm[Hg] Rodrigo Morena [facility] 09-22-2023 05:52-0400 Respiratory rate 18 /min Rodrigo Morena [facility] 09-22-2023 05:52-0400 SaO2% (BldA) [Mass fraction] 98 % Rodrigo Berg [facility] 09-22-2023 05:52-0400 Systolic blood pressure 109 mm[Hg] Rodrigo Berg [facility] 09-22-2023 05:29-0400 Body temperature 98.96 [degF] Rodrigo Berg [facility] 09-22-2023 05:29-0400 Heart rate 67 /min Rodrigo Berg [facility] 07-18-2023 00:06-0400 Body height 160 cm Elva Azevedo MD [facility] 07-18-2023 00:06-0400 Body mass index (BMI) [Ratio] 30.11 kg/m2 Elva Azevedo MD Work Phone: [facility] 07-18-2023 00:06-0400 Body temperature 98.29 [degF] Elva Azevedo MD Work Phone: [facility] 07-18-2023 00:06-0400 Body weight 77.11 kg Elva Azevedo MD Work Phone: [facility] 07-18-2023 00:06-0400 Diastolic blood pressure 79 mm[Hg] Elva Azevedo MD Work Phone: [facility] 07-18-2023 00:06-0400 Heart rate 61 /min Elva Azevedo MD Work Phone: [facility] 07-18-2023 00:06-0400 Respiratory rate 16 /min Elva Azevedo MD Work Phone: [facility] 07-18-2023 00:06-0400 SaO2% (BldA) [Mass fraction] 96 % Elva Azevedo MD Work Phone: [facility] 07-18-2023 00:06-0400 Systolic blood pressure 132 mm[Hg] Elva Azevedo MD Work Phone: [facility] 07-07-2022 09:35-0400 Diastolic blood pressure 60 mm[Hg] Chris Bassam [facility] 07-07-2022 09:35-0400 Heart rate 83 /min Chris Bassam [facility] 07-07-2022 09:35-0400 SaO2% (BldA) [Mass fraction] 97 % Chris Bassam [facility] 07-07-2022 09:35-0400 Systolic blood pressure 100 mm[Hg] Chris Dixonpsey [facility] Encounters Encounter Date Encounter Type Care Provider Facility Start: 02-23-2024 End: 02-23-2024 flow sheet Valentina VARGAS Work Phone: [facility] Comment on above: size inconsist ent with dates (Primary Dx); Third trimester ; 30 weeks gestation of ; Herpes simplex Start: 02-23-2024 End: 02-23-2024 ambulatory VALENTINA CORDOVA Not Available Start: 02-23-2024 End: 02-23-2024 Bamboo flowsheet Valentina VARGAS Work Phone: [facility] Start: 02-23-2024 End: 02-23-2024 Bamboo flowsheet Valentina VARGAS Work Phone: [facility] Start: 02-08-2024 End: 02-08-2024 ambulatory ERINN HITESH Not Available Start: 02-08-2024 End: 02-08-2024 flow sheet Erinn Hitesh DO Work Phone: [facility] Comment on above: Third trimester preg nadia; 28 weeks gestation of Start: 02-08-2024 End: 02-08-2024 Bamboo flowsheet Erinn Hitesh DO Work Phone: [facility] Start: 02-08-2024 End: 02-08-2024 Bamboo flowsheet Erinn Hitesh DO Work Phone: [facility] Start: 02-02-2024 End: 02-02-2024 ambulatory [facility] Start: 02-01-2024 End: 02-01-2024 Clinisync Result Encounter Valentina VARGAS Work Phone: [facility] Unsolicited Start: 02-01-2024 End: 02-01-2024 Clinisync Result Encounter Valentina VARGAS Work Phone: [facility] Unsolicited Start: 01-28-2024 End: 01-28-2024 Clinisync Result Encounter Valentina VARGAS Work Phone: [facility] Unsolicited Start: 01-28-2024 End: 01-28-2024 Clinisync Result Encounter Valentina VARGAS Work Phone: [facility] Unsolicited Start: 01-11-2024 End: 01-11-2024 flow sheet Valentina VARGAS Work Phone: [facility] Comment on above: Second trimester pre gnancy; 24 weeks gestation of ; Diabetes mellitus screening Start: 01-11-2024 End: 01-11-2024 ambulatory VALENTINA CORDOVA Not Available Start: 01-11-2024 End: 01-11-2024 Bamboo flowsheet Valentina Cordova PA Work Phone: [facility] Start: 01-11-2024 End: 01-11-2024 Bamboo flowsheet Valentina VARGAS Work Phone: [facility] Start: 01-02-2024 End: 01-02-2024 Office consultation new/estab patient 60 min Moy York MD Work Phone: [facility] [place] Comment on above: Partial placenta pre via (Primary Dx) Start: 01-02-2024 End: 01-02-2024 Orders Only Sushila Mcneil RN [facility] [place] Comment on above: Low-lying placenta ( Primary Dx); Personal history of cardiac murmur Start: 12-20-2023 End: 12-20-2023 Chart abstracting Moy York MD Work Phone: [facility] Start: 12-16-2023 End: 12-16-2023 Chart abstracting Moy York MD Work Phone: [facility] Start: 12-14-2023 End: 12-14-2023 flow sheet Erinn Hitesh DO Work Phone: [facility] Comment on above: Second trimester pre gnancy; 20 weeks gestation of ; Partial placenta previa Start: 12-14-2023 End: 12-14-2023 ambulatory ERINN HITESH Not Available Start: 12-08-2023 End: 12-08-2023 ambulatory [facility] Work Phone: Start: 12-08-2023 End: 12-08-2023 Patient encounter procedure [facility] Work Phone: Start: 11-16-2023 End: 11-16-2023 Patient encounter procedure Erinn Hitesh DO Work Phone: [facility] Start: 11-16-2023 End: 11-16-2023 Periodic preventive med est patient 18-39 yrs Erinn Hitesh DO Work Phone: [facility] Comment on above: Well woman exam with routine gynecological exam; Second trimester ; Exposure to STD; Screening, , for anatomic survey; Need for maternal serum alpha-protein (MSAFP) screening Start: 11-16-2023 End: 11-16-2023 ambulatory ERINN HITESH Not Available Start: 11-16-2023 End: 11-16-2023 Bamboo flowsheet Erinn Hitesh DO Work Phone: [facility] Start: 11-16-2023 End: 11-20-2023 Clinisync Result Encounter Erinn Hitesh DO Work Phone: [facility] Unsolicited Start: 11-16-2023 End: 11-19-2023 External Result Encounter Erinn Hitesh DO Work Phone: [facility]solic[facility] Start: 11-16-2023 End: 11-20-2023 External Result Encounter Erinn Hitesh DO Work Phone: [facility]solic[facility] Start: 10-17-2023 End: 10-17-2023 ambulatory ERINN HITESH Not Available Start: 09-29-2023 End: 09-29-2023 ambulatory ERINN HITESH Not Available Start: 09-22-2023 End: 09-22-2023 Emergency department patient visit Rodrigo Berg [facility] Start: 07-18-2023 End: 07-18-2023 Emergency department patient visit ELVA [facility] Start: 07-18-2023 End: 07-18-2023 Emergency department patient visit Elva Azevedo MD Work Phone: [facility] ED Comment on above: Mai's tenosy novitis, left (Primary Dx) Start: 07-14-2023 End: 07-14-2023 ambulatory Love Palmer Facility:[facility] Start: 07-14-2023 End: 07-14-2023 Lab Drop off Love Palmer [facility] Start: 06-15-2023 End: 06-15-2023 ambulatory ERINN HITESH Not Available Start: 07-07-2022 End: 07-07-2022 Patient encounter procedure Chris Banegas [facility] Start: 07-30-2021 End: 05-20-[address] ERINN PROCTOR Facility:[facility] Start: 07-15-2021 End: 07-15-2021 Lab Drop off Love Palmer [facility] Procedures Date Procedure Procedure Detail Performing Clinician Start: 02-08-2024 Urnls dip stick/tabl et rgnt non-auto w/o micrscp Erinnboston Deeo DO Work Phone: Start: 02-01-2024 GLUCOSE TOLERANCE 3 HOUR Valentina VARGAS Work Phone: Start: 01-28-2024 ALL CBC WITH AUTO DIFF Valentina VARGAS Work Phone: Start: 01-28-2024 GLUCOSE 1 HOUR Valentina Quinteros Work Phone: Start: 01-11-2024 Urnls dip stick/tabl et rgnt non-auto w/o micrscp Valentina VARGAS Work Phone: Start: 12-14-2023 Urnls dip stick/tabl et rgnt non-auto w/o micrscp Erinn Deeo DO Work Phone: Start: 12-08-2023 Quick Strep (POC) Start: 11-16-2023 Urnls dip stick/tabl et rgnt non-auto w/o micrscp Erinn Hitesh DO Work Phone: Start: 11-16-2023 IGP,APTIMA HPV,AGE GDLN Erinn Hitesh DO Work Phone: Start: 11-16-2023 Microscopic observat ion [Identifier] in Cervix by Cyto stain Moy York MD Work Phone: Start: 11-16-2023 URETHRITIS/DISCHARGE PLUS VAGINITIS (HTRX) Erinn Proctor DO Work Phone: Plan of Treatment Date Care Activity Detail Author Start: 11-15-2026 Screening for malign ant neoplasm of cervix Pap Smear [facility] Start: 01-01-2025 End: 01-01-2025 US MFM with or without consult US MFM with or without consult Imaging Routine Low-lying placenta Personal history of cardiac murmur Expected: 01/01/2025 (Approximate), Expires: 01/01/2025 [facility] Work Phone: Comment on above: Expected: 01/01/2025 (Approximate), Expires: 01/01/2025 Start: 03-12-2024 End: 03-12-2024 Professional / ancillary services management 03/12/2024 1:00 PM EST Ancillary Procedure [facility] [address] [place] [address] [facility] Start: 02-23-2024 End: 02-23-2024 Patient encounter procedure [facility] Comment on above: Arrived Start: 02-23-2024 End: 02-22-2025 US for US OB SCAN FOR GROWTH Imaging Routine size inconsistent with dates Expected: 02/23/2024 (Approximate), Expires: 02/22/2025 [facility] Work Phone: Comment on above: Expected: 02/23/2024 (Approximate), Expires: 02/22/2025 Start: 02-08-2024 End: 02-08-2024 Patient encounter procedure 02/08/2024 3:10 PM EST Routine [facility] [address] [place] [id number] Erinn Proctor, DO [address] [place] [address] [facility] Start: 02-02-2024 End: 02-02-2024 Patient encounter procedure 02/02/2024 1:00 PM EST Appointment [facility] [address] [place] [facility] [place] [address] [facility] [place] Start: 01-11-2024 End: 01-11-2024 Patient encounter procedure 01/11/2024 2:30 PM EDT Routine [facility] [address] [place] [address] Valentina Cordova PA [address] [place], [place] [id number] [facility] Start: 01-11-2024 End: 01-10-2025 CBC panel - Blood by Automated count CBC Lab Routine Diabetes mellitus screening Expected: 01/11/2024 (Approximate), Expires: 01/10/2025 [facility] Work Phone: Comment on above: Expected: 01/11/2024 (Approximate), Expires: 01/10/2025 Start: 01-11-2024 End: 01-10-2025 Measurement of glucose 1 hour after glucose challenge for glucose tolerance test Glucose tolerance, 1 hour Lab Routine Diabetes mellitus screening Expected: 01/11/2024 (Approximate), Expires: 01/10/2025 [facility] Comment on above: Expected: 01/11/2024 (Approximate), Expires: 01/10/2025 Start: 01-02-2024 End: 01-02-2024 Patient encounter procedure [facility] [place] Start: 12-14-2023 End: 12-14-2023 Patient encounter procedure 12/14/2023 2:10 PM EDT Routine [facility] [address] [facility] [place] [id number] Erinn Proctor, DO [address] [place] [address] [facility] Start: 12-14-2023 End: 12-14-2023 Professional / ancillary services management 12/14/2023 1:00 PM EDT Ancillary Procedure [facility] [address] [place] [address] [facility] Start: 11-16-2023 End: 11-16-2023 Patient encounter procedure 11/16/2023 3:30 PM EDT Routine [facility] [address] [place] [address] Erinn Proctor, DO [address] [place] [address] Arrived [facility] Comment on above: Arrived Start: 11-16-2023 End: 12-16-2023 Alpha fetoprotein, maternal Alpha fetoprotein, maternal Lab Routine Need for maternal serum alpha-protein (MSAFP) screening Expected: 11/16/2023 (Approximate), Expires: 12/16/2023 [facility] Comment on above: Expected: 11/16/2023 (Approximate), Expires: 12/16/2023 Start: 11-16-2023 End: 11-15-2024 US for US OB ANATOMY SINGLE W US OB CERVICAL LENGTH Imaging Routine Screening, , for anatomic survey Expected: 11/16/2023 (Approximate), Expires: 11/15/2024 [facility] Comment on above: Expected: 11/16/2023 (Approximate), Expires: 11/15/2024 Start: 11-13-2023 Influenza vaccination [facility] Start: 10-13-2023 Influenza vaccination Flu vacc ine (Season Ended) [facility] Start: 11-02-2021 DTaP,Tdap and Td Vaccines (7 - Td or Tdap) DTaP,Tdap and Td Vaccines (7 - Td or Tdap) [facility] Start: 12-11-2019 Screening for malign ant neoplasm of cervix Pap Smear [facility] Start: 2017 DTaP,Tdap and Td Vaccines (1 - Tdap) DTaP,Tdap and Td Vaccines (1 - Tdap) [facility] Start: 2017 DTaP/Tdap/Td vaccine (1 - Tdap) DTaP/Tdap/Td vaccine (1 - Tdap) [facility] Start: 2016 Adult BMI Follow Up Plan Adult BMI Follow Up Plan [facility] Start: 2016 Adult BMI Screening Adult BMI Screen ing [facility] Start: 2010 Depression Screening Depression Scre ening [facility] Start: 2010 Tobacco Screening Tobacco Screening [facility] Start: 06-10-1999 COVID-19 Vaccine (#1) COVID-19 Vacci ne (#1) [facility] CHLAMYDIA TRACHOMATI S (GENITO/STI) CHLAMYDIA TRACHOMATIS (GENITO/STI) Lab Routine Exposure to STD Ordered: 11/16/2023 [facility] Comment on above: Ordered: 11/16/2023 Cytology Cervical or vaginal smear or scraping study Pap Smear Pathology and Cytology Routine Well woman exam with routine gynecological exam Ordered: 11/16/2023 [facility] Work Phone: Comment on above: Ordered: 11/16/2023 Neisseria gonorrhoea e DNA [Presence] in Unspecified specimen by KESHIA with probe detection Neisseria gonorrhea DNA probe, direct Lab Routine Exposure to STD Ordered: 11/16/2023 [facility] Comment on above: Ordered: 11/16/2023 SURESWAB(R) ADVANCED VAGINITIS PLUS, TMA SURESWAB(R) ADVANCED VAGINITIS PLUS, TMA Pathology and Cytology Routine Exposure to STD Ordered: 11/16/2023 [facility] Comment on above: Ordered: 11/16/2023 Immunizations Immunization Date Immunization Notes Care Provider Carlota melchor 12-28-2018 influenza virus vacc ine, unspecified formulation Erinn Hitesh DO Work Phone: [facility] Payers Date Payer Category [facility] [id number] 2023 [facility] - Other ANTHEM [id number] 2023 Unknown 2023 Unknown [id number] .[id number] 1998 Unknown [id number] 2.16.840.1.026215.3.579 .2.593 1998 Unknown [id number] 2.16.840.1.633536.3.579 .2.173 1998 Unknown [id number] 2.16.840.1.195759.3.579 .2.727 1998 Unknown [id number] 2.16.840.1.731886.3.579 .2.727 1998 Unknown [id number] 2.16.840.1.962740.3.579 .2.727 1998 Unknown [id number] 2.16.840.1.493951.3.579 .2.1286 1998 Unknown [id number] 2.16.840.1.038718.3.579 .2.1286 1998 Unknown [id number] 2.16.840.1.898062.3.579 .2.1286 1998 Unknown [id number] 2.16.840.1.034418.3.579 .2.1259 1998 Unknown [id number] 2.16.840.1.628569.3.579 .2.1259 1998 Unknown [id number] 2.16.840.1.904342.3.579 .2.1259 1998 Unknown [id number] 2.16.840.1.175937.3.579 .2.1259 1998 Unknown [id number] 2.16.840.1.605987.3.579 .2.1259 1998 Unknown [id number] 2.16.840.1.668613.3.579 .2.1259 1998 Unknown [id number] 2.16.840.1.520201.3.579 .2.9 1998 Unknown [id number] 2.16.840.1.801423.3.579 .2.1259 1959 Unknown [id number] Social History Date Type Detail Facility Start: 10-24-2020 End: 01-02-2024 Tobacco smoking status Never smoked tobacco (finding) [facility] Tobacco smoking status Never [facility] Start: 07-01-2012 End: 01-02-2024 Sex Assigned At Female [facility] Start: 07-18-2023 End: 01-02-2024 Tobacco use and exposure Smokeless tobacco [facility]-user [facility] Start: 07-18-2023 End: 01-02-2024 Alcohol intake Ex-drinker (finding) [facility] Start: 07-01-2012 End: 01-02-2024 History of Social function [facility] Start: 1998 Sex Assigned At Not on file [facility] Start: 1998 Sex Assigned At Female [facility] Tobacco smoking status NHIS Tobacco smoking consumption unknown [facility] Start: 08-06-2023 [facility] Start: 05-26-2022 Gender identity Identifies as female gender (finding) [facility] Start: 12-16-2023 Sex Female (finding) [facility] NEGATED: Highlighted rowStart: NINF History of tobacco use Passive smoker [facility] Goals Date Patient Goal Desired Activity /State Personal health goal Functional Status Date Assessment Result Facility 09-22-2023 Functional Status N/A [facility] 07-07-2022 Functional Status N/A [facility] Clinical Notes 07-15-2021 to 02-23-2024 ALICIA Knutson - 02/23/2024 3:20 PM Malcolm Moss LPN - 02/08/2024 3:10 PM ALICIA Aparicio - 01/11/2024 2:30 PM Clifton York MD - 01/02/2024 11:00 AM EDT Note Date & Type Note Facility 02-23-2024 History of Present illness Narrative Reason for Appointment: Patient ID: Ericka Aleman is a 23 y.o. female who presents for Routine Visit Patient presents today for Return OB appointment. MEDICATIONS Current Outpatient Medications Medication Instructions ondansetron ODT (Zofran-ODT) 4 MG disintegrating tablet valACYclovir (Valtrex) 500 MG tablet 1 tablet, Oral, Daily valACYclovir (VALTREX) 500 mg, Oral, Daily ALLERGIES No Known Allergies PROBLEMS [...] reviewed. Vitals: Estimated body mass index is 30.82 kg/m as calculated from the following: Height as of 07/05/22: 5' 3 . Weight as of this encounter: 174 lb. BP: 116/76 Patient's last menstrual period was 07/30/2023. ASSESSMENT & PLAN ICD-10-CM 1. size inconsistent with dates O26.849 US OB SCAN FOR GROWTH 2. Third trimester Z34.93 3. 30 weeks gestation of Z3A.30 4. Herpes simplex B00.9 valACYclovir (Valtrex) 500 MG tablet Return OB: Patient presents today for a routine obstetrics appointment. Patient is currently 30w5d . Patient states she is doing well but has complaints of being tired due to current . Patient has verbalizes frequent movement. labor precautions was discussed/given and patient was instructed to perform kick counts three times a day. Valtrex sent in to start Orders Placed This Encounter Procedures US OB SCAN FOR GROWTH Follow Up: Patient is to return to office in 2 week for routine OB appointment. Documented by ALICIA Knutson on behalf of: ALICIA Knutson documented in this encounter [facility] 02-08-2024 History of Present illness Narrative Reason for Appointment: Patient ID: Ericka Aleman is a 23 y.o. female who presents for Routine Visit Patient presents today for Return OB appointment. MEDICATIONS Current Outpatient Medications Medication Instructions ondansetron ODT (Zofran-ODT) 4 MG disintegrating tablet [...] No family history on file. SURGICAL HISTORY No past surgical history on file. REVIEW OF SYSTEMS Review of Systems: Review [...] nursing note reviewed. Exam conducted with a order taker present. Vitals: Estimated body mass index is 30.11 kg/m as calculated from the following: Height as of 07/05/22: 5' 3 . Weight as of this encounter: 170 lb. BP: 118/72 Patient's last menstrual period was 07/30/2023. ASSESSMENT & PLAN ICD-10-CM 1. Third trimester Z34.93 POCT urinalysis dipstick manually resulted 2. 28 weeks gestation of Z3A.28 Return OB: Patient presents today for a routine obstetrics appointment. Patient is currently 28w4d . Patient states she is doing well but has complaints of being tired due to current . Patient has verbalizes frequent movement. labor precautions was discussed/given and patient was instructed to perform kick counts three times a day. Orders Placed This Encounter Procedures POCT urinalysis dipstick manually resulted Follow Up: Patient is to return to office in 2 week for routine OB appointment. 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 Patient does have ultrasound scheduled with us. [...] neg Have you been seen here at [facility] in a previous ? No Recent ER visits or hospitalizations? No Bring blood sugar log or meter with you today? (Please bring them with you for every visit at [facility]) N/A Flu vaccine (Jan-May)? N/A Any concerns that you would like me to mention to the provider today? No [facility] History of Present illness Narrative Reason [...] nursing note reviewed. Exam conducted with a order taker present. Vitals: Estimated body mass index is [...] partially covers os. Pt being referred to [facility] for evaluation of placenta previa. Pt to be on pelvic rest until further notice. Pt to return in 4 weeks. Documented by Kami Moss LPN on behalf of: Erinn Proctor DO documented in this encounter [facility] 11-16-2023 History of Present illness Narrative Reason for Appointment: Patient ID: Ericka Aleman is a 22 y.o. female who presents for Routine Visit Patient presents today for Return OB appointment. MEDICATIONS Current Outpatient Medications Medication Instructions ondansetron ODT (Zofran-ODT) 4 MG disintegrating tablet [...] Constitutional: Appearance: Normal appearance. She is well-developed. Genitourinary: Vulva normal. Cardiovascular: Rate and Rhythm: Normal rate and [...] nursing note reviewed. Exam conducted with a order taker present. Vitals: Estimated body mass index is 26.93 kg/m as calculated from the following: Height as of 07/05/22: 5' 3 . Weight as of this encounter: 152 lb. BP: 118/70 Patient's last menstrual period was 07/30/2023. ASSESSMENT & PLAN ICD-10-CM 1. Well woman exam with routine gynecological exam Z01.419 Pap Smear 2. Second trimester Z34.92 POCT urinalysis dipstick manually resulted 3. Exposure to STD Z20.2 SURESWAB(R) ADVANCED VAGINITIS PLUS, TMA CHLAMYDIA TRACHOMATIS (GENITO/STI) Neisseria gonorrhea DNA probe, direct 4. Screening, , for anatomic survey Z36.89 US OB ANATOMY SINGLE W US OB CERVICAL LENGTH 5. Need for maternal serum alpha-protein (MSAFP) screening Z36.1 Alpha fetoprotein, maternal Alpha fetoprotein, maternal Return OB/Annual Exam: Patient presents today for a annual exam/routine obstetrics appointment. Patient is currently 16w4d . Patient states she is doing well but has complaints of nausea in the morning. Pap and cultures was obtained without difficulty and patient was given orders for anatomy scan and msAFP to be obtained. Orders Placed This Encounter Procedures US OB ANATOMY SINGLE W US OB CERVICAL LENGTH Alpha fetoprotein, maternal CHLAMYDIA TRACHOMATIS (GENITO/STI) Neisseria gonorrhea DNA probe, direct POCT urinalysis dipstick manually resulted Follow Up: Patient is to schedule annual exam for next year and return to office in 4 weeks for OB appointment. Documented by Skylar Gonzáles LPN on behalf of: Valentina Cordova PA-C documented in this encounter [facility] 09-22-2023 Evaluation + Plan note Extrac arvin from: Title:ED Note Author:Rodrigo Berg DO Date :09/22/23 Asymptomatic bacteriuria dur ing (O99.891: Other specified diseases and conditions complicating ) Bacteriuria (R82.71: Bacteriuria) Nausea and vomiting during (O21.9: Vomiting of , unspecified) Orders: cephalexin, 500 mg = 1 cap(s), Oral, q12hr, X 5 day(s), # 10 cap(s), Refills(s) 0, Pharmacy: [facility]/pharmacy #[id number], 160, cm, 09/22/23 5:34:00 EDT, Height/Length Dosing, 72.4, kg, 09/22/23 5:34:00 EDT, Weight Dosing Lactated Ringers Injection, 1,000 mL, Soln-IV, IV, Once, Stop date 09/22/23 5:38:00 EDT, STAT, Start date 09/22/23 5:38:00 EDT, mL/hr, Infuse over 61, minute(s) promethazine, 12.5 mg = 1 tab(s), Oral, q8hr, PRN as needed for nausea/vomiting, # 12 tab(s), Refills(s) 0, Pharmacy: [facility]/pharmacy #[id number], 160, cm, 09/22/23 5:34:00 EDT, Height/Length [...] Diagnostic Tests Pending * Urine Culture 09/22/23 [facility]07-11-2024 Hospital Discharge instructions Patient Education 09/22/2023 [...] Follow these instructions at home: Medicines Take piig-jvr-ewxgptq and prescription medicines only as told by your health care provider. Do not use any prescription, ptpx-xko-lhjuhik, or herbal medicines for morning sickness without [...] provider. Document Revised: 10/13/2020 Document Reviewed: 09/22/2020 [employer] Patient Education 2022 BuyWithMe. 09/22/2023 07:17:19 Asymptomatic Bacteriuria Asymptomatic Bacteriuria Asymptomatic [...] Follow these instructions at home: Medicines Take rmiv-xef-uhfbogn and prescription medicines only as told by [...] provider. Document Revised: 10/10/2020 Document Reviewed: 10/10/2020 [employer] Patient Education 2022 [employer]WithMe. Follow Up Care 09/22/2023 05:26:40 With:rEinn PROCTOR Address: [address] , [place] [address] Business (1) When:09/25/2023 06:28:14 [facility]07-11-2024 NoteED Patient Education Note Obstetrics and [...] these instructions at home: Medicines ? Take gojo-oxv-hjqdmkz and prescription medicines only as told by your health care provider. Do not use any prescription, etgg-ukv-kuoggcf, or herbal medicines for morning sickness without [...] provider. Document Revised: 10/13/2020 Document Reviewed: 09/22/2020 Else[employer] Patient Education ? 2022 BuyWithMe. Urology Asymptomatic Bacteriuria Asymptomatic bacteriuria is the [...] You are an o (more content not included)...[facility] 07-18-2023 Hospital Discharge instructions* Discharge Instructions* Elva [...] sent through Care Everywhere. * Tenosynovitis: Wrist (Bel[place]) [facility] Patient Education 07/07/2022 [...] numbers. This can be done either in [place] ([place] or metric measurements. Note that charts and online BMI calculators are available to help you find your BMI quickly and easily without having to do these calculations yourself. To calculate your BMI in [place] measurements: 1.Measure your weight in pounds [...] Centers for Disease Control and Prevention: www.cdc.gov [place] [employer]: www.heart.org National Heart, Lung, and Blood [place]: www.nhlbi.nih.gov Summary Body mass index (BMI) is a number that is calculated from a person's weight and height. BMI may help estimate how much of a person's weight is composed of fat. BMI can help identify thosewho may be at higher risk for certain medical problems. BMI can be measured using Belgian measurements or metric measurements. BMI charts are used to identify whether you are underweight, normal weight, overweight, or obese. This information is not intended to replace advice given to you by your health care provider. Make sure you discuss any questions you have with your health care provider. Document Revised: 11/21/2019 Document Reviewed: 09/28/2019 [employer] Patient Education 2022 BuyWithMe. 07/07/2022 10:02:02 Tendinitis, Nywa-fv-Ulps Tendinitis Tendinitis is irritation and swelling (inflammation) [...] only as told by your doctor. Take cuuh-myn-knqfuhz and prescription medicines only as told by [...] provider. Document Revised: 11/05/2021 Document Reviewed: 11/05/2021 [employer] Patient Education 2022 [employer]WithMe. Follow Up Care 07/07/2022 09:19:19 With:NONE, XXXX Address: [phone] When: Unknown [facility] 05-04-2022 Evaluation + Plan note Diagnostic Tests Pending * Chlamydia/Gonococcus, KESHIA [facility]* Diagnosis De Quervain's tenosynovitis, left- Primary Radial styloid tenosynovitis [facility] information available [facility] Work Phone: Evaluation note* Diagnosis Second trimester state, incidental 20 weeks gestation of Partial placenta previa Placenta previa without hemorrhage, unspecified as to episode of care [facility]* Diagnosis Partial placenta previa- Primary Placenta previa without hemorrhage, unspecified as to episode of care [facility] Diagnosis Low-lying placenta- Primary Hemorrhage from placenta previa, unspecified as to episode of care Personal history of cardiac murmur Personal history of other diseases of circulatory system documented in this encounter [facility]* Diagnosis Second trimester state, incidental 24 weeks gestation of Diabetes mellitus screening Screening for diabetes mellitus documented in this encounter [facility]* Diagnosis Third trimester state, incidental 28 weeks gestation of documented in this encounter [facility]* Diagnosis size inconsistent with dates- Primary Third trimester state, incidental 30 weeks gestation of Herpes simplex Herpes simplex without mention of complication documented in this encounter [facility]* Diagnosis Well woman exam with routine gynecological exam Routine gynecological examination Second trimester state, incidental Exposure to STD Screening, , for anatomic survey Encounter for anatomic survey Need for maternal serum alpha-protein (MSAFP) screening documented in this encounter [facility] Healthcare[facility] course Narrative No data available for this section [facility] No data available for this section [facility] filedocumented in this encounter [facility] SystemInstructionsNot on filedocumented in this encounter [facility] SystemProgress note No data available for this section [facility] Reason for referral (narrative) Referred by: Chris Banegas PA-C [facility] Summary Purpose Family History No [...] AUTHOR AUTHOR'S ORGANIZ ATION 09/28/2023 August [facility] DATE CREATED AUTHOR AUTHOR'S ORGANIZ ATION 09/29/2023 [facility] DATE CREATED AUTHOR AUTHOR'S ORGANIZ ATION 02/05/2024 [facility] DATE CREATED AUTHOR AUTHOR'S ORGANIZ ATION 02/26/2024 [facility] EPIC Reason for Visit (unrecogniz ed section and content) Reason Comments Wrist Injury Patient arrived to [facility] with complaints of left wrist injury. 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 [employer] provides no warranty or guarantee of the accuracy or completeness of information in this document.
== END 2024-03-12 12:52 | disposition home or self-care (01) ==
LOC: US 12:51
PROVIDERS: Visit Provider Physician Assistant
DX: O26.843 Uterine size-date discrepancy, third trimester (principal); Z3A.33 33 weeks gestation of pregnancy
CPT/HCPCS: 76816

== ENCOUNTER 2024-03-23 12:51 | Outpatient (OUT) | payer BC, SELFPAY ==
[2024-03-23 13:05] VITALS: BP 123/62; PULSE 85
[2024-03-23 13:23] LABS: Bilirubin Urine NEGATIVE (NEGATIVE); Blood Urine NEGATIVE (NEGATIVE); Clarity Urine SL CLOUDY (CLEAR); Color Urine LT. YELLOW (YELLOW); Glucose Urine UA NEGATIVE (NEGATIVE); Ketones Urine NEGATIVE (NEGATIVE); Leukocyte Esterase Urine NEGATIVE (NEGATIVE); Nitrite Urine NEGATIVE (NEGATIVE); Protein Urine NEGATIVE (NEG/TRACE); Specific Gravity Urine 1.025 (1.005-1.025); Urobilinogen Urine 0.2 EU/dL (0.2-1.0)
[2024-03-23 13:24] LABS: Urine Microscopic Indicated NO
--- NOTE | 2024-03-23 13:24 | US_ITS ---
[address] [address] Patient Name: SEBASTIAN ORELLANA MRN: [id number] date: 2000 Sex: F Assigned Patient Location: [facility] Current Patient Location: [facility] Accession/Order Number: [id number] Exam Date: 03/23/2024 13:33 Report Date: 03/23/2024 14:17 At the request of: ERINN ROSALES Procedure: US OB BPP w non-stress EXAMINATION: US OB BPP w non-stress HISTORY:Fall COMPARISON: Ultrasound OB growth 03/12/2024 TECHNIQUE: Ultrasound biophysical profile was performed in the radiology department. BREATHING MOVEMENTS: 2 GROSS BODY MOVEMENTS: 2 TONE: 2 QUALITATIVE AMNIOTIC FLUID VOLUME: 2 PRESENTATION: CEPHALIC HEART RATE: 134.33 bpm AMNIOTIC FLUID VOLUME: 9.82 cm GESTATIONAL AGE: 34 weeks 6 days US/US OB BPP w non-stress IMPRESSION: Total biophysical profile score: 8 Electronically authenticated by: MACARENA GARCIA Date: 03/23/2024 14:17
== END 2024-03-23 14:25 | disposition home or self-care (01) ==
LOC: FBCO 12:52 → FBC 12:56
PROVIDERS: Visit Provider Obstetrics & Gynecology
DX: O26.893 Other specified pregnancy related conditions, third trimester (principal); Z3A.34 34 weeks gestation of pregnancy
CPT/HCPCS: 59025; 76818; 81003

== ENCOUNTER 2024-03-28 00:50 | Outpatient (OUT) | payer BC, SELFPAY ==
--- OUTSIDE RECORDS SUMMARY | 2024-03-28 00:53 | XMS_ITS | CCD ---
Author Organization [facility] Care Team Providers Care Net Ui Developer Name Role Phone NONE, XXXX Primary Care Physician Unavailab thee PROCTOR, DR PLASENCIA Attending Unavailable HITESH, DR PLASENCIA Consulting Unavailable HITESH, DR PLASENCIA Admitting Unavailable ZIEBER, DR MACARENA Kim Consulting Unavailable Unavailable Primary Care Provider UnavailELVA Caldera Attending Unavailable DO Rodrigo Berg Attending Unavailable Love Palmer Attending Unavailable Love Palmer Admitting Unavailable DO Rodrigo Berg Attending Unavailable Unallocated Robert CORMIER Provider Primary Care Provi que Unavailable Primary Care Provider UnavailERINN Domínguez Referring Unavailable MOY YORK Attending Unavailable MOY YORK Referring Unavailable UnallocatRobert gong MD Provider Primary Care Provi que ERINN PROCTOR Attending Unavailable HITESH, ERINN Attending Unavailable ERINN PROCTOR Attending Unavailable HITESH, ERINN Attending Unavailable VALENTINA CORDOVA Attending Unavailable HITESH, ERINN Attending Unavailable VALENTINA CORDOVA Attending Unavailable VALENTINA CORDOVA Attending Unavailable Medications Current Medications Medication Drug Class(es) Dates Sig (Normalized) Sig (Original) cephalexin 500 mg oral capsule (1 source) Cephalosporin Antibacterial Start: 09-22-2023 End: 09-27-2023 take 1 capsule by mouth every twelve hours Keflex 500 mg Cap 500 mg = 1 cap(s), Oral, q12hr, X 5 day(s), # 10 cap(s), Refills(s) 0, Pharmacy: [facility]/pharmacy #[id number], 160, cm, 09/22/23 5:34:00 EDT, Height/Length Dosing, 72.4, kg, 09/22/23 5:34:00 EDT, Weight Dosing Start Date: 09/22/23 Stop Date: 09/27/23 Status: Ordered citalopram 20 mg oral tablet (4 sources) Serotonin Reuptake Inhibitor Start: 03-12-2019 take 1 tablet by mouth once daily citalopram 20 mg Tab TAKE 1 TABLET BY MOUTH EVERY DAY Start Date: 03/12/19 Status: Ordered 21 day ethinyl estradiol 0.708250 mg/hr / etonogestrel 0.005 mg/hr vaginal system [...] needed for nausea or vomiting. Active Pnv #07-Exrs-Nqreu Acid-Omega3 (1 source) Start: 12-08-2023 Pnv #30-Obig-Xztnn Acid-Omega3 Active CAP PO December 08, 2023 12:00am predniSONE 20 mg oral tablet (1 source) Start: 07-07-2022 End: 07-12-2022 take 2 tablets by mouth once daily predniSONE 20 mg Tab 40 mg = 2 tab(s), Oral, Daily, X 5 day(s), # 10 tab(s), Refills(s) 0, Pharmacy: [facility]/pharmacy #[id number], 160, cm, 07/07/22 9:38:00 EDT, Height/Length [...] nausea/vomiting, # 12 tab(s), Refills(s) 0, Pharmacy: [facility]/pharmacy #[id number], 160, cm, 09/22/23 5:34:00 EDT, Height/Length [...] 07-07-2022 Chronic Other and delivery including normal (12 sources) Second trimester ; Translations: [Encounter for [...] [30 weeks gestation of ] 02-23-2024 Episodic Residual codes; unclassified (2 sources) Gestation period, 33 weeks; Translations: [33 weeks gestation of ] 03-12-2024 Episodic Unclassified (20 sources) OB Reminders Onset: 09-29-2023 09-29-2023 Unclassified [...] Test Name Value Interpretation Reference Range Facility [facility] 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 YELLOW YELLOW [facility] GLUCOSE URINE UA Negative NEGATIVE mg/dL [facility] Ketones Ql (U) Negative NEGATIVE mg/dL [facility] Leukocyte esterase Test strip Ql (U) Negative NEGATIVE [facility] NITRITE URINE Negative NEGATIVE [facility] pH (U) 6.0 [pH] 5.0 - 9.0 [facility] PROTEIN URINE Negative NEG/TRACE mg/dL [facility] SPECIFIC GRAVITY URINE 1.025 1.005 - 1.025 [facility] URINE MICROSCOPIC INDICATED NO [facility] UROBILINOGEN URINE 0.2 EU/dL 0.2 - 1.0 EU/dL [facility] Urinalysis macro (dipstick) panel (U)on 03-12-2024 Bilirubin, UA Negative Negative - 4(70) +++ mg/dL [facility] Blood, UA Not detected Negative - 50 Raul/mcL [facility] Clarity, UA Clear [facility] Color, UA Yellow [facility] Glucose, UA Negative Negative - 2000(110) ++++ mg/dL [facility] Interpretation and review of laboratory results Abnormal [facility] Ketones, UA Negative Negative - 160(16) ++++ mg/dL [facility] Leukocytes, UA Negative Negative - 500+++ Anitra/mcL [facility] Nitrite, UA Negative Negative - Positive [facility] pH, UA 6 5 - 9 [facility] Protein, UA Trace Negative - 1999(20) ++++ mg/dL [facility] Spec Grav, UA 1.03 1 - 1.03 [facility] Urobilinogen, UA 0.2 0.2 - 12 mg/dL [facility] Urinalysis macro (dipstick) panel (U)on 02-08-2024 Bilirubin, UA Negative Negative - 4(70) +++ mg/dL [facility] Blood, UA Negative Negative - 50 Raul/mcL [facility] Clarity, UA Clear [facility] Color, UA Yellow [facility] Glucose, UA Negative Negative - 1999(110) ++++ mg/dL [facility] Interpretation and review of laboratory results Abnormal [facility] Ketones, UA Positive Negative - 160(16) ++++ mg/dL [facility] Comment on above: trace Leukocytes, UA Negative Negative - 500+++ Anitra/mcL [facility] Nitrite, UA Negative Negative - Positive [facility] pH, UA 6 5 - 9 [facility] Protein, UA Negative Negative - 1999(20) ++++ mg/dL [facility] Spec Grav, UA 1.03 1 - 1.03 [facility] Urobilinogen, UA 0.2 0.2 - 12 mg/dL [facility] GLUCOSE TOLERANCE 3 HOURon 1 04-02-2023 GLUCOSE TOLERANCE 3 HOUR mg/dL [facility] Comment on above: GLU FAST 88 (<95) Co l: 02/01/24 1310 GLU 1HR 177 (<180) Col: 02/01/24 1412 GLU 2HR 131 (<155) Col: 02/01/24 1512 GLU 3HR 106 (<140) Col: 02/01/24 1612 [facility] ALL CBC WITH AUTO DIFFon BASOPHILS ABSOLUTE AUTO 0 [facility] Basophils/100 WBC (Bld) 0.2 % 0.2 - 2.0 % [facility] Eosinophils/100 WBC (Bld) 0.8 % Low 0.9 - 7.0 % [facility] Erythrocyte distribution width (RBC) [Ratio] 12.4 % 11.0 - 15.0 % [facility] Hematocrit (Bld) [Volume fraction] 34.2 % Low 36.0 - 48.0 % [facility] Hemoglobin (Bld) [Mass/Vol] 11.7 g/dL Low 12.0 - 16.0 g/dL [facility] IMMATURE GRANULOCYTES ABS AUTO 0.2 High [facility] Immature granulocytes/100 WBC (Bld) 1.5 % High 0.0 - 0.5 % [facility] LYMPHOCYTES ABSOLUTE AUTO 2.7 [facility] Lymphocytes/100 WBC (Bld) 20.2 % Low 20 .5 - 60.0 % [facility] MCH (RBC) [Entitic mass] 31.4 pg 26. 7 - 34.0 pg [facility] MCHC (RBC) [Mass/Vol] 34.2 g/dL 29.9 - 35.2 g/dL [facility] MCV (RBC) [Entitic vol] 91.7 fL 81.0 - 99.0 fL [facility] MONOCYTES ABSOLUTE AUTO 0.8 [facility] Monocytes/100 WBC (Bld) 6.2 % 1.7 - 12.0 % [facility] NEUTROPHILS ABSOLUTE AUTO 9.4 High [facility] Neutrophils/100 WBC (Bld) 71.1 % 43 .0 - 75.0 % [facility] Platelet mean volume (Bld) [Entitic vol] 9 fL Low 9.5 - 13.5 fL [facility] TBH EO # 0.1 [facility] PLT 320 [facility] RBC 3.73 Low [facility] WBC 13.2 High [facility] GLUCOSE 1 HOURon 01-28-2024 Glucose [Mass/Vol] 140 mg/dL High NINF - 13 0 mg/dL [facility] No Panel Informationon 01-27 Interpretation and review of laboratory results Abnormal [facility] Urinalysis macro (dipstick) panel (U)on 01-11-2024 Bilirubin, UA Negative Negative - 4(70) +++ mg/dL [facility] Blood, UA Negative Negative - 50 Raul/mcL [facility] Clarity, UA Clear [facility] Color, UA Yellow [facility] Glucose, UA Negative Negative - 2000(110) ++++ mg/dL [facility] Interpretation and review of laboratory results Normal [facility] Ketones, UA Negative Negative - 160(16) ++++ mg/dL [facility] Leukocytes, UA Negative Negative - 500+++ Anitra/mcL [facility] Nitrite, UA Negative Negative - Positive [facility] pH, UA 55 5 - 9 [facility] Protein, UA Negative Negative - 1999(20) ++++ mg/dL [facility] Spec Grav, UA 1.02 1 - 1.03 [facility] Urobilinogen, UA 1.0 0.2 - 12 mg/dL [facility] Urinalysis macro (dipstick) panel (U)on 12-14-2023 Bilirubin, UA Negative Negative - 4(70) +++ mg/dL [facility] Blood, UA Negative Negative - 50 Raul/mcL [facility] Clarity, UA Clear [facility] Color, UA Yellow [facility] Glucose, UA Negative Negative - 1999(110) ++++ mg/dL [facility] Interpretation and review of laboratory results Normal [facility] Ketones, UA Negative Negative - 160(16) ++++ mg/dL [facility] Leukocytes, UA Negative Negative - 500+++ Anitra/mcL [facility] Nitrite, UA Negative Negative - Positive [facility] pH, UA 5.5 5 - 9 [facility] Protein, UA Negative Negative - 1999(20) ++++ mg/dL [facility] Spec Grav, UA 1.025 1 - 1.03 [facility] Urobilinogen, UA 0.2 0.2 - 12 mg/dL [facility] No Panel InformationOrdered By: Christopher Ma on 12-08-2023 Quick Strep (POC) [facility] IGP,APTIMA HPV,AGE GDLNon AGE GDLN ACOG TESTING Note . [facility] Comment on above: TESTS RESULT FLAG UN ITS REF RANGE LAB Clinician Provided Cytology Information Source.............Cervix No. of containers..01 ThinPrep Vial Age Algo ACOG Radha... FLAG LEGEND: L-Low Normal,H-High Normal,LL-Alert Low,HH-Alert High <-Panic Low,>-Panic High,A-Abnormal,AA-Critical Abnormal Performed at: 01 =G [address] [address] Luz Marina Swann MD, IGP, RFX APTIMA HPV ASCU Note . [facility] Comment on above: TESTS RESULT FLAG UN ITS REF RANGE LAB DIAGNOSIS: 02 NEGATIVE FOR INTRAEPITHELIAL LESION OR MALIGNANCY. Specimen adequacy: 02 Satisfactory for evaluation. No endocervical component is identified. Performed by: Quentin Paige, Partner Manager ([facility]) . 02 Note: Note 02 The Pap [...] <-Panic Low,>-Panic High,A-Abnormal,AA-Critical Abnormal Performed at: [address] [address] Luz Marina Swann MD, Performed at: =[facility] [address] [phone] Invoice Machine Operator: Luz Marina Swann MD, Phone: [phone] Performed at: [facility] [address] [id number] Invoice Machine Operator: Luz Marina Swann MD, Phone: [phone] SPATULA-ALONE CERVIX [facility] URETHRITIS/DISCHARGE PLUS VA GINITIS (HTRX)on 11-19-2023 ATOPOBIUM VAGINAE 30.582 Abnormal [facility] Healthcare ATOPOBIUM VAGINAE Detected Abnormal [facility] BVAB 2,3 (BACTERIAL VAGINOSIS ASSOCIATED BACTERIA 2, 3); MOBILUNCUS SPP 22.805 Abnormal [facility] BVAB 2,3 (BACTERIAL VAGINOSIS ASSOCIATED BACTERIA [...] Abnormal [facility] GARDNERELLA VAGINALIS 27.081 Abnormal [facility] GARDNERELLA VAGINALIS Detected Abnormal [facility] Interpretation and review of laboratory results Abnormal [facility] MEGASPHAERA (TYPES 1, 2) 0.000 [facility] MEGASPHAERA (TYPES 1, 2) Not detected [facility] MYCOPLASMA GENITALIUM 0.000 [facility] MYCOPLASMA GENITALIUM Not detected [facility] NEISSERIA GONORRHOEAE 0.000 [facility] NEISSERIA GONORRHOEAE Not detected N [facility] TET B, TET M 23.652 Abnormal [facility] TET B, TET M Detected Abnormal [facility] TRICHOMONAS VAGINALIS 0.000 [facility] TRICHOMONAS VAGINALIS Not detected N [facility] Urinalysis macro (dipstick) panel (U)on 11-16-2023 Bilirubin, UA Positive Negative - 4(70) +++ mg/dL [facility] Comment on above: small Blood, UA Negative Negative - 50 Raul/mcL [facility] Clarity, UA Clear [facility] Color, UA Yellow [facility] Glucose, UA Negative Negative - 2000(110) ++++ mg/dL [facility] Interpretation and review of laboratory results Normal [facility] Ketones, UA Positive Negative - 160(16) ++++ mg/dL [facility] Comment on above: trace Leukocytes, UA Negative Negative - 500+++ Anitra/mcL [facility] Nitrite, UA Negative Negative - Positive [facility] pH, UA 5.5 5 - 9 [facility] Protein, UA Negative Negative - 2000(20) ++++ mg/dL [facility] Spec Grav, UA 1.030 1 - 1.03 [facility] Urobilinogen, UA 1.0 0.2 - 12 mg/dL [facility] C Urineon 09-24-2023 Bacteria identified Cx [facility] (U) Microbiology PROCEDURE: Urine Culture [R1] SOURCE: U CleanCatch BODY SITE: COLLECTED DATE/TIME: 09/22/2023 05:47 EDT RECEIVED DATE/TIME: 09/22/2023 08:16 EDT START DATE/TIME: 09/22/2023 08:16 EDT FREE TEXT SOURCE: Rodrigo Berg DO, DO, Noah S. FINAL REPORTS Final Report [] Verified Date/Time: 09/24/2023 09:48 EDT <10,000 cfu/ml Mixed skin contaminants Performing Locations R1: This test was performed at: [facility], [address] [place] [address], [address] , , Normal [facility] Comment on above: Performed By: #### 2 [id number] #### [facility] [address] [place] [address] BMPon 09-22-2023 Anion gap [Moles/Vol] 13 mmol/L Normal 6-[address] [facility] Comment on above: Performed By: #### 2 [id number] #### [facility] [address] [place] [address] Calcium [Mass/Vol] 8.9 mg/dL Normal 8.9-11.1 [facility] Comment on above: Performed By: #### 2 [id number] #### [facility] [address] [place] [address] Chloride [Moles/Vol] 103 mmol/L Normal 101-111 [facility] Comment on above: Performed By: #### 2 [id number] #### [facility] [address] [place] [address] CO2 [Moles/Vol] 21 mmol/L Normal 21-31 [facility] Comment on above: Performed By: #### 2 [id number] #### [facility] [address] [place] [address] Creatinine [Mass/Vol] 0.6 mg/dL Normal 0.5-1.[address] [facility] Comment on above: Performed By: #### 2 [id number] #### [facility] [address] [place] [address] Glucose [Mass/Vol] 89 mg/dL Normal 55-199 [facility] Comment on above: Performed By: #### 2 [id number] #### [facility] [address] [place] [address] Potassium [Moles/Vol] 3.5 mmol/L Normal 3.5-5.[address] [facility] Comment on above: Performed By: #### 2 [id number] #### [facility] [address] [place] [address] Sodium [Moles/Vol] 133 mmol/L Low 135-145 [facility] Comment on above: Performed By: #### 2 [id number] #### [facility] [address] [place] [address] Urea nitrogen [Mass/Vol] 5 mg/dL Normal 5-21 [facility] Comment on above: Performed By: #### 2 [id number] #### [facility] [address] [place] [address] Urea nitrogen/Creatinine [Mass ratio] 8 No Units Low 10-20 [facility] Comment on above: Performed By: #### 2 [id number] #### [facility] [address] [place] [address] CBC w/ Auto Diffon 4 Basophils/100 WBC (Bld) 0.2 % Normal 0.0-2.0 [facility] Comment on above: Performed By: #### 2 [id number] #### [facility] [address] [place] [address] Basophils/Leukocytes Auto (Bld) [Pure # fraction] 0.0 E9/L Normal 0.0-0.2 [facility] Comment on above: Performed By: #### 2 [id number] #### [facility] [address] [place] [address] Eosinophils (Bld) [#/Vol] 0.1 E9/L Normal 0.0-0.5 [facility] Comment on above: Performed By: #### 2 [id number] #### [facility] [address] [place] [address] Eosinophils/100 WBC (Bld) 0.7 % Normal 0.0-8.0 [facility] Comment on above: Performed By: #### 2 [id number] #### [facility] [address] [place] [address] Erythrocyte distribution width (RBC) [Ratio] 13.1 % Normal 10.9-14.2 [facility] Comment on above: Performed By: #### 2 [id number] #### [facility] [address] [place] [address] Hematocrit (Bld) [Volume fraction] 39.9 % Normal 34.0-46.0 [facility] Comment on above: Performed By: #### 2 [id number] #### [facility] [address] [place] [address] Hemoglobin (Bld) [Mass/Vol] 14.0 g/dL Normal 12.0-16.0 [facility] Comment on above: Performed By: #### 2 [id number] #### [facility] [address] [place] [address] Lymphocytes (Bld) [#/Vol] 1.8 E9/L Normal 1.0-4.0 [facility] Comment on above: Performed By: #### 2 551839 #### [facility] [address] [place] [address] Lymphocytes/100 WBC (Bld) 18.5 % Normal 14.0-50.0 [facility] Comment on above: Performed By: #### 2 151425 #### [facility] [address] [place] [address] MCH (RBC) [Entitic mass] 31.9 pg Normal 27.0-34.0 [facility] Comment on above: Performed By: #### 2 [id number] #### [facility] [address] [place] [address] MCHC (RBC) [Mass/Vol] 35.2 g/dL Normal 31.4-36.[address] [facility] Comment on above: Performed By: #### 2 [id number] #### [facility] [address] [place] [address] MCV (RBC) [Entitic vol] 90.5 fL Normal 80.0-100.0 [facility] Comment on above: Performed By: #### 2 319160 #### [facility] [address] [place] [address] Monocytes (Bld) [#/Vol] 0.5 E9/L Normal 0.2-1.0 [facility] Comment on above: Performed By: #### 2 000365 #### [facility] [address] [place] [address] Neutrophils (Bld) [#/Vol] 7.3 E9/L Normal 2.0-7.5 [facility] Comment on above: Performed By: #### 2 964756 #### [facility] [address] [place] [address] Neutrophils/100 WBC (Bld) 75.5 % High 36.0-75.0 [facility] Comment on above: Performed By: #### 2 [id number] #### [facility] [address] [place] [address] Platelet 415.0 E9/L Normal 150.0-500.0 [facility] Comment on above: Performed By: #### 2 [id number] #### [facility] [address] [place] [address] Platelet mean volume (Bld) [Entitic vol] 6.6 fL Normal 6.4-10.8 [facility] Comment on above: Performed By: #### 2 561669 #### [facility] [address] [place] [address] RBC (Bld) [#/Vol] 4.4 E12/L Normal 4.3-5.9 [facility] Comment on above: Performed By: #### 2 [id number] #### [facility] [address] [place] [address] WBC corrected for nucl RBC Auto (Bld) [#/Vol] 9.7 E9/L Normal 4.0-11.0 [facility] Comment on above: Performed By: #### 2 136045 #### [facility] [address] [place] [address] CHEMISTRYOrdered By: SYSTEM SYSTEM on 09-22-2023 Albumin [...] 2023 ED Clinical Summary ED Clinical Summary [address] [address] ED Clinical Summary Person Information Name: ERICKA ALEMAN/[place] Age: 22 Years : 2000 Sex: Female Language: Tunisian PCP: NONE, XXXX Marital Status: Single Visit [...] 09/22/2023 07:17:18 09/22/2023 07:17:18 09/22/2023 07:17:18 ADDRESS: [address] [place] [id number] PHYS DOC NOTES: MEDICAL INFORMATION: Prescriptions Given: New Medications [facility]/pharmacy #[id number], [address], [place] [id number], [phone] cephalexin (Keflex 500 mg Cap) 1 Capsules [...] Bacteriuria Follow up: With: Address: When: [facility], [address] [place] [address] [place] [address] Business (1) In 3 days 09/25/2023 DIAGNOSIS: Asymptomatic bacteriuria during ; Bacteriuria; Nausea and vomiting during Normal [facility] ED Note-Physicianon 09-22-19 24 ED Note-Physician ED [...] that she was prescribed Zofran by her SOIL EXPERT but is still having nausea and vomiting [...] and Complexity of Problems Differential Diagnosis: [] [facility] Data External documents reviewed: N/A My [...] follow-up close with Dr. Proctor her established SOIL EXPERT. Shared decision making: As above Code status: N/A Assessment/Plan Asymptomatic bacteriuria during (O99.891: Other specified diseases and conditions complicating ) Bacteriuria (R82.71: Bacteriuria) Nausea and vomiting during (O21.9: Vomiting of , unspecified) Orders: cephalexin, 500 mg = 1 cap(s), Oral, q12hr, X 5 day(s), # 10 cap(s), Refills(s) 0, Pharmacy: [facility]/pharmacy #[id number], 160, cm, 09/22/23 5:34:00 EDT, Height/Length Dosing, 72.4, kg, 09/22/23 5:34:00 EDT, Weight Dosing Lactated Ringers Injection, 1,000 mL, Soln-IV, IV, Once, Stop date 09/22/23 5:38:00 EDT, STAT, Start date 09/22/23 5:38:00 EDT, mL/hr, Infuse over 61, minute(s) promethazine, 12.5 mg = 1 tab(s), Oral, q8hr, PRN as needed for nausea/vomiting, # 12 tab(s), Refills(s) 0, Pharmacy: [facility]/pharmacy #[id number], 160, cm, 09/22/23 5:34:00 EDT, Height/Length [...] Cult Rflx Urine Culture Medications Administered Given [id number] [F], 1000 mL, IV Sodium Chloride 0.9% IV Kaylyn 50 mL [F] 50 mL + [id number] [F] 12.5 mg, IV Piggyback Disposition Plan Discharge Prescription List Prescriptions Keflex 500 mg Cap, 500 mg= 1 cap(s), Oral, q12hr promethazine 12.5 mg oral tablet, 12.5 mg= 1 tab(s), Oral, q8hr, PRN Follow-up With When Contact Information Erinn PROCTOR In 3 days 09/25/[address] , [place] [address]- Business (1) Additional Instructions: Patient Education Morning Sickness Asymptomatic Bacteriuria Problem List/Past Medical History Ongoing Anxiety History of cold sores Right otitis media Historical Denies Depression Procedure/Surgical History None. Medications Inpatient LR 1000 mL Bolus, 1000 mL, IV, Once promethazine additive 12.5 mg + Sodium Chloride 0.9% IV Kaylyn 50 (more content not included)... Normal [facility] Comment on above: Result Comment: Elec tronically Signed By: Rodrigo Berg DO\.br\Date and Time Signed: 09/22/23 06:44 EDT ED Patient Summaryon 024 ED Patient Summary ED Patient Summary [address] [address] Patient Discharge Instructions Person Information Name: ERICKA ALEMAN Age: 22 Years Arrival Date: 09/22/2023 05:24:18 Discharge Diagnosis: Asymptomatic bacteriuria during ; Bacteriuria; Nausea and vomiting during Primary Care Physician: NONE, XXXX Provider Information Primary Provider: Rodrigo Berg DO Advanced Iuss Analyst:None The exam and treatment you received in the Emergency Department were for an urgent problem and are not intended as complete care. It is important that you follow up with a doctor, nurse practitioner, or physician?s architectural administrative assistant for ongoing care. If your symptoms become worse or you do not improve as expected and you are unable to reach your usual health care provider, you should return to the Emergency Department. We are available 24 hours a day. ERICKA ALEMAN has been given the following list of patient education materials, prescriptions and follow-up instructions: Follow-up Instructions: With: Address: When: [facility], [address] [place] [address] [place] [address] Business (1) In 3 days 09/25/2023 In the event that this physician does not participate in your insurance network, please consult with your insurance company to find a nearby participating provider. Patient Education Materials: Morning Sickness; Asymptomatic Bacteriuria A MESSAGE TO ALL PATIENTS REGARDING OPIOIDS PRESCRIPTION OPIOIDS: WHAT YOU NEED TO KNOW Prescription opioids can be used to help relieve vejisksq-is-lepxrq pain and are often prescribed following a [...] tell y (more content not included)... Normal [facility] HEMATOLOGYOrdered By: SYSTEM SYSTEM on 09-22-2023 [...] 09-22-2023 Albumin [Mass/Vol] 4.2 g/dL Normal 3.3-5.0 [facility] Comment on above: Performed By: #### 2 [id number] #### [facility] [address] [place] [address] Albumin/Globulin (S) [Mass conc ratio] 1.3 Normal 1.1-2.2 [facility] Comment on above: Performed By: #### 2 [id number] #### [facility] [address] [place] [address] ALP [Catalytic activity/Vol] 68 Int._Unit/L Normal 21-98 [facility] Comment on above: Performed By: #### 2 [id number] #### [facility] [address] [place] [address] ALT No additional P-5'-P [Catalytic activity/Vol] 18 Int._Unit/L Normal 6-46 [facility] Comment on above: Performed By: #### 2 [id number] #### [facility] [address] [place] [address] AST [Catalytic activity/Vol] 17 Int._Unit/L Normal 5-43 [facility] Comment on above: Performed By: #### 2 [id number] #### [facility] [address] [place] [address] Bilirubin [Mass/Vol] 0.5 mg/dL Normal 0.0-1.1 [facility] Comment on above: Performed By: #### 2 [id number] #### [facility] [address] [place] [address] Bilirubin.direct [Mass/Vol] 0.1 mg/dL Normal 0.0-0.4 [facility] Comment on above: Performed By: #### 2 [id number] #### [facility] [address] [place] [address] Bilirubin.indirect [Mass or moles/Vol] 0.4 mg/dL Normal 0.1-0.9 [facility] Comment on above: Performed By: #### 2 [id number] #### [facility] [address] [place] [address] Globulin (S) [Mass/Vol] 3.2 g/dL Normal 1.4-4.0 [facility] Comment on above: Performed By: #### 2 [id number] #### [facility] [address] [place] [address] Protein [Mass/Vol] 7.4 g/dL Normal 6.0-7.8 [facility] Comment on above: Performed By: #### 2 [id number] #### [facility] [address] [place] [address] Lipase Levelon 09-22-2023 Lipase [Catalytic activity/Vol] 30 U/L Normal 13-58 [facility] Comment on above: Performed By: #### 2 [id number] #### [facility] [address] [place] [address] UA with Cult [employer] 09-22-19 24 Bacteria Auto Ql (U) 2+ /HPF Abnormal Trace Fish [facility] Comment on above: Performed By: #### 4 [id number] #### [facility] [address] [place] [address] Bilirubin Ql (U) Negative Normal Negative [facility] Comment on above: Performed By: #### 4 [id number] #### [facility] [address] [place] [address] Clarity (U) Ex.Turbid Abnormal Clear [facility] Comment on above: Performed By: #### 4 [id number] #### [facility] [address] [place] [address] Color (U) Yellow Normal Yellow [facility] Comment on above: Result Comment: Micr oscopic readings are only performed on those samples that meet specific criteria set forth by [facility]. Performed By: #### 4 [id number] #### [facility] [address] [place] [address] Epithelial cells.squamous Auto (Urine sed) [#/Area] >10 Invalid Interpretation Code [facility] Comment on above: Performed By: #### 4 [id number] #### [facility] [address] [place] [address] Glucose Ql (U) Negative Normal Negative [facility] Comment on above: Performed By: #### 4 [id number] #### [facility] [address] [place] [address] Hemoglobin Auto test strip (U) [Mass/Vol] Negative Normal Negative [facility] Comment on above: Performed By: #### 4 [id number] #### [facility] [address] [place] [address] Ketones Auto test strip Ql (U) 4+ mg/dL Abnormal Negative [facility] Comment on above: Performed By: #### 4 [id number] #### [facility] [address] [place] [address] Leukocyte esterase Auto test strip Ql (U) 250 Anitra/uL Abnormal Negative [facility] Comment on above: Performed By: #### 4 [id number] #### [facility] [address] [place] [address] Mucus Auto Ql (U) 3+ Abnormal Negative [facility] Comment on above: Performed By: #### 4 [id number] #### [facility] [address] [place] [address] Nitrite Auto test strip Ql (U) Negative Normal Negative [facility] Comment on above: Performed By: #### 4 [id number] #### [facility] [address] [place] [address] pH (U) 6.0 [pH] Invalid Interpretation Code 5.0-9.0 [facility] Comment on above: Performed By: #### 4 [id number] #### [facility] [address] [place] [address] Protein Ql (U) Trace Abnormal Negative [facility] Comment on above: Performed By: #### 4 [id number] #### [facility] [address] [place] [address] Specific gravity (U) [Rel density] 1.023 Invalid Interpretation Code 1.005-1.030 [facility] Comment on above: Performed By: #### 4 [id number] #### [facility] [address] [place] [address] Urobilinogen (U) [Mass/Vol] Negative Normal Negative [facility] Comment on above: Performed By: #### 4 [id number] #### [facility] [address] [place] [address] WBC Auto (Urine sed) [#/Area] 31-75 Abnormal 0-5 [facility] Comment on above: Performed By: #### 4 [id number] #### [facility] [address] [place] [address] Type of Urine collection method Clean Catch Normal [facility] Comment on above: Performed By: #### 4 [id number] #### [facility] [address] [place] [address] URINALYSISOrdered By: Jennifer Santacruz on 09-22-2023 Bacteria [...] that meet specific criteria set forth by [facility]. Epithelial cells.squamous Auto (Urine sed) [...] 09-22-2023 eGFR 128 mL/min/1.73 m2 Normal >=59 [facility] Comment on above: Order Comment: Order added by Discern Expert. Performed By: #### 1 [id number] #### [facility] [address] [place] [address] PAP [id number] 07-19-2023 Cytology report Cyto stain Doc (Cvx/Vag) Note Invalid Interpretation Code [facility] Comment on above: Result Comment: TEST S RESULT FLAG UNITS REF RANGE LAB Clinician Provided Cytology Information Source.............Endocervix No. of containers..01 ThinPrep Vial DIAGNOSIS: 01 NEGATIVE FOR INTRAEPITHELIAL LESION OR MALIGNANCY. Specimen adequacy: 01 Satisfactory for evaluation. Endocervical and/or squamous metaplastic cells (endocervical component) are present. Performed by: 01 Puneet Elise, Partner Manager ([facility]) . 01 Note: Note 01 The Pap smear is a screening test designed to aid in the detection of premalignant and malignant conditions of the uterine cervix. It is not a diagnostic procedure and should not be used as the sole means of detecting cervical cancer. Both false-positive and false-negative reports do occur. Test Methodology: Note 01 The [employer](R) Echocardiography Tech was unable to read this specimen. Therefore a manual review was performed. . 01 The HPV DNA reflex criteria were not met with this specimen result therefore, no HPV testing was performed. FLAG LEGEND: L-Low Normal,H-High Normal,LL-Alert Low,HH-Alert High <-Panic Low,>-Panic High,A-Abnormal,AA-Critical Abnormal Performed at: 01 [facility] [address] [place] [address] Luz Marina Swann MD, Performed at: [facility] [address] [place], [place] [id number] MD Shree Raza Performed By: #### 3 [id number] #### [facility] [address] [place] [id number] PAP [id number] 07-16-2023 Collection Technique BRUSH-SPATULA Normal [facility] Comment on above: Performed By: #### 3 [id number] #### [facility] [address] [place] [address] Gynecological Body Site ENDOCERVIX Normal [facility] Comment on above: Performed By: #### 3 [id number] #### [facility] [address] [place] [address] Physician Orderon 07-14-2023 Physician Order [id number] Normal [facility] DHEA SERUMon 08-11-2021 Dehydroepiandrosterone (DHEA) 339 ng/dL Normal [facility] Comment on above: Result Comment: Age [...] 68 Performed By: #### Justin SERRANO. #### [facility] [address] [place] [address] Dr. Austen Hernadez DHEA-SULFATEon 08-01-2021 DHEA-Sulfate 247.0 ug/dL Normal 110.0-431.7 [facility] Comment on above: Performed By: #### Justin LEBLANC #### [facility] [address] [place] [address] Dr. Austen Hernadez FSHon 08-01-2021 FSH 1.6 mIU/mL Normal [facility] Comment on above: Result Comment: Adul t Female: Follicular phase 3.5 - 12.5 Ovulation phase 4.7 - 21.5 Luteal phase 1.7 - 7.7 Postmenopausal 25.8 - 134.8 Performed By: #### L BCFS #### [facility] [address] [place] [address] Dr. Austen Hernadez LUTEINIZING HORMONE (LH)on 08-01-2021 LH 2.6 mIU/mL Normal [facility] Comment on above: Result Comment: Adul t Female: Follicular phase 2.4 - 12.6 Ovulation phase 14.0 - 95.6 Luteal phase 1.0 - 11.4 Postmenopausal 7.7 - 58.5 Performed By: #### L BCLH #### [facility] [address] [place] [address] Dr. Austen Hernadez CBC AUTO DIFFon 07-30-2021 BASO # 0.0 103/ul Normal 0.0-0.1 [facility] Comment on above: Performed By: #### C BC #### [facility] [address] [place] [address] Dr. Austen Hernadez Basophils/100 WBC (Bld) 0.2 % Normal 0.2-2.0 [facility] Comment on above: Performed By: #### C BC #### [facility] [address] [place] [address] Dr. Austen Hernadez EO # 0.1 103/ul Normal 0.0-0.7 [facility] Comment on above: Performed By: #### C BC #### [facility] [address] [place] [address] Dr. Austen Hernadez Eosinophils/100 WBC (Bld) 1.2 % Normal 0.9-7.0 [facility] Comment on above: Performed By: #### C BC #### [facility] [address] [place] [address] Dr. Austen Hernadez Erythrocyte distribution width (RBC) [Ratio] 12.1 % Normal 11.0-15.0 [facility] Comment on above: Performed By: #### C BC #### [facility] [address] [place] [address] Dr. Austen Hernadez Hematocrit (Bld) [Volume fraction] 40.2 % Normal 36.0-48.0 [facility] Comment on above: Performed By: #### C BC #### [facility] [address] [place] [address] Dr. Austen Hernadez Hemoglobin (Bld) [Mass/Vol] 13.3 g/dL Normal 12.0-16.0 [facility] Comment on above: Performed By: #### C BC #### [facility] [address] [place] [address] Dr. Austen Hernadez IG # 0.04 10e3/ul Critically high 0.00-0.03 [facility] Comment on above: Performed By: #### C BC #### [facility] [address] [place] [address] Dr. Austen Hernadez IG % 0.5 % Normal 0.0-0.5 [facility] Comment on above: Performed By: #### C BC #### [facility] [address] [place] [address] Dr. Austen Hernadez LYMPH # 1.7 103/ul Normal 1.2-3.8 [facility] Comment on above: Performed By: #### C BC #### [facility] [address] [place] [address] Dr. Austen Hernadez Lymphocytes/100 WBC (Bld) 20.1 % Critically low 20.5-6 0.0 [facility] Comment on above: Performed By: #### C BC #### [facility] [address] [place] [address] Dr. Austen Hernadez MANUAL DIFF REQ NO Normal [facility] Comment on above: Performed By: #### C BC #### [facility] [address] [place] [address] Dr. Austen Hernadez MCH (RBC) [Entitic mass] 30.0 pg Normal 26.7-34.0 [facility] Comment on above: Performed By: #### C BC #### [facility] [address] [place] [address] Dr. Austen Hernadez MCHC (RBC) [Mass/Vol] 33.1 g/dL Normal 29.9-35.2 [facility] Comment on above: Performed By: #### C BC #### [facility] [address] [place] [address] Dr. Austen Herandez MCV (RBC) [Entitic vol] 90.5 fL Normal 81.0-99.0 [facility] Comment on above: Performed By: #### C BC #### [facility] [address] [place] [address] Dr. Austen Hernadez MONO # 0.5 103/ul Normal 0.3-0.8 [facility] Comment on above: Performed By: #### C BC #### [facility] [address] [address] [address] Austen Hernadez Monocytes/100 WBC (Bld) 5.8 % Normal 1.7-12.0 [facility] Comment on above: Performed By: #### C BC #### [facility] [address] [address] [address] Austen Hernadez NEUT # 6.2 103/ul Normal 1.4-6.5 [facility] Comment on above: Performed By: #### C BC #### [facility] [address] [address] [address] Austen Hernadez Neutrophils/100 WBC (Bld) 72.2 % Normal 43.0-75.0 [facility] Comment on above: Performed By: #### C BC #### [facility] [address] [place] [address] Dr. Austen Hernadez Platelet mean volume (Bld) [Entitic vol] 8.2 fL Critically low 9.5-13.5 [facility] Comment on above: Performed By: #### C BC #### [facility] [address] [place] [address] Dr. Austen Hernadez PLT 350 103/ul Normal 150-450 [facility] Comment on above: Performed By: #### C BC #### [facility] [address] [place] [address] Dr. Austen Hernadez RBC 4.44 106/ul Normal 4.20-5.40 [facility] Comment on above: Performed By: #### C BC #### [facility] [address] [place] [address] Dr. Austen Hernadez WBC 8.6 103/ul Normal 4.0-11.0 [facility] Comment on above: Performed By: #### C BC #### [facility] [address] [place] [address] Dr. Austen Hernadez GLYCOHEMOGLOBIN A1Con 2021 ADA RECOMMENDATION SEE BELOW Normal [facility] Comment on above: Result Comment: ADA RECOMMENDED LIMIT 4.0 - 6.0 ADA THERAPEUTIC TARGET < 7.0 ACTION SUGGESTED > 7.0 Performed By: #### A 1C #### [facility] [address] [place] [address] Dr. Austen Hernadez Glucose [Mass/Vol] 108 mg/dL Normal [facility] Comment on above: Performed By: #### A 1C #### [facility] [address] [place] [address] Dr. Austen Hernadez HbA1c (Bld) [Mass fraction] 5.4 % Normal 4.5-6.2 [facility] Comment on above: Performed By: #### A 1C #### [facility] [address] [place] [address] Dr. Austen Hernadez TSHon 07-30-2021 TSH 1.365 uIU/mL Normal 0.358-3.740 [facility] Comment on above: Performed By: #### T SH #### [facility] [address] [place] [address] Dr. Austen Hernadez TSH RANGE SEE BELOW Normal [facility] Comment on above: Result Comment: <0.3 4 UIU/ml HYPERTHYROID 0.34-5.60 UIU/ml EUTHYROID >5.60 UIU/ml HYPOTHYROID Performed By: #### T SH #### [facility] [address] [place] [address] Dr. Austen Hernadez US PELVIS AND TRANSVAGon [...] by: MACARENA GARCIA Date: 2021-07-30 15:31 Normal [facility] Vital Signs Date Time Vital Sign Value Performing Clinician Facility 03-12-2024 13:34-0500 Body mass index (BMI) [Ratio] 31.53 kg/m2 Valentina Mcewensville PA Work Phone: [facility] 03-12-2024 13:34-0500 Body weight 80.74 kg Valentina Mcewensville PA Work Phone: [facility] 03-12-2024 13:34-0500 Diastolic blood pressure 60 mm[Hg] Valentina Suzi PA Work Phone: [facility] 03-12-2024 13:34-0500 Systolic blood pressure 100 mm[Hg] Valentina Mcewensville PA Work Phone: [facility] 02-23-2024 15:40-0500 Body mass index (BMI) [Ratio] 30.82 kg/m2 Valentina Suzi PA Work Phone: [facility] 02-23-2024 15:40-0500 Body weight 78.93 kg Valentina Suzi PA Work Phone: [facility] 02-23-2024 15:40-0500 Diastolic blood pressure 76 mm[Hg] Valentina Mcew[place] PA Work Phone: [facility] 02-23-2024 15:40-0500 Systolic blood pressure 116 mm[Hg] Valentina Uszi PA Work Phone: [facility] 02-08-2024 15:51-0500 Body mass index (BMI) [Ratio] 30.11 kg/m2 Erinn Hitesh DO Work Phone: [facility] 02-08-2024 15:51-0500 Body weight 77.11 kg Erinn Hitesh DO Work Phone: [facility] 02-08-2024 15:51-0500 Diastolic blood pressure 72 mm[Hg] Erinn Hitesh DO Work Phone: [facility] 02-08-2024 15:51-0500 Systolic blood pressure 118 mm[Hg] Erinn Hitesh DO Work Phone: [facility] 01-11-2024 14:51-0400 Body mass index (BMI) [Ratio] 28.84 kg/m2 Valentina Suzi PA Work Phone: [facility] 01-11-2024 14:51-0400 Body weight 73.85 kg Valentina Suzi PA Work Phone: [facility] 01-11-2024 14:51-0400 Diastolic blood pressure 64 mm[Hg] Valentina Suzi PA Work Phone: [facility] 01-11-2024 14:51-0400 Systolic blood pressure 102 mm[Hg] Valentina Cordova PA Work Phone: [facility] 01-02-2024 10:36-0400 Body height 160 cm Moy York MD Work Phone: [facility] 01-02-2024 10:36-0400 Body mass index (BMI) [Ratio] 28.48 kg/m2 Moy York MD Work Phone: [facility] 01-02-2024 10:36-0400 Body weight 72.94 kg Moy York MD Work Phone: [facility] 01-02-2024 10:36-0400 Diastolic blood pressure 64 mm[Hg] Moy York MD Work Phone: [facility] 01-02-2024 10:36-0400 Heart rate 67 /min Moy York MD Work Phone: [facility] 01-02-2024 10:36-0400 Systolic blood pressure 100 mm[Hg] Moy York MD Work Phone: [facility] 12-14-2023 14:35-0400 Body mass index (BMI) [Ratio] 28.48 kg/m2 Erinn Hitesh DO Work Phone: [facility] 12-14-2023 14:35-0400 Body weight 72.92 kg Erinn Hitesh DO Work Phone: [facility] 12-14-2023 14:35-0400 Diastolic blood pressure 66 mm[Hg] Erinn Hitesh DO Work Phone: [facility] 12-14-2023 14:35-0400 Systolic blood pressure 108 mm[Hg] Erinn Hitesh DO Work Phone: [facility] 12-08-2023 17:27-0400 Body height 160.02 cm [facility] 12-08-2023 17:27-0400 Body mass index (BMI) [Ratio] 28.3 kg/m2 [facility] 12-08-2023 17:27-0400 Body temperature 98.6 [degF] [facility] 12-08-2023 17:27-0400 Body weight 72.57 kg [facility] 12-08-2023 17:27-0400 Diastolic blood pressure 69 mm[Hg] [facility] 12-08-2023 17:27-0400 Heart rate 87 /min [facility] 12-08-2023 17:27-0400 SaO2% (BldA) [Mass fraction] 97 % [facility] 12-08-2023 17:27-0400 Systolic blood pressure 107 mm[Hg] [facility] 11-16-2023 16:05-0400 Body mass index (BMI) [Ratio] 26.93 kg/m2 Erinn Hitesh DO Work Phone: [facility] 11-16-2023 16:05-0400 Body weight 68.95 kg Erinn Hitesh DO Work Phone: [facility] 11-16-2023 16:05-0400 Diastolic blood pressure 70 mm[Hg] Erinn Hitesh DO Work Phone: [facility] 11-16-2023 16:05-0400 Systolic blood pressure 118 mm[Hg] Erinn Hitesh DO Work Phone: [facility] 09-22-2023 07:00-0400 Diastolic blood pressure 85 mm[Hg] Rodrigo Morena [facility] 09-22-2023 07:00-0400 Heart rate 58 /min Rodrigo Morena [facility] 09-22-2023 07:00-0400 Mean blood pressure 94 mm[Hg] Rodrigo Morena [facility] 09-22-2023 07:00-0400 SaO2% (BldA) [Mass fraction] 100 % Rodrigo Morena [facility] 09-22-2023 07:00-0400 Systolic blood pressure 113 mm[Hg] Rodrigo Morena [facility] 09-22-2023 06:30-0400 Diastolic blood pressure 67 mm[Hg] Rodrigo Morena [facility] 09-22-2023 06:30-0400 Heart rate 62 /min Rodrigo Morena [facility] 09-22-2023 06:30-0400 Mean blood pressure 81 mm[Hg] Rodrigo Morena [facility] 09-22-2023 06:30-0400 Respiratory rate 16 /min Rodrigo Morena [facility] 09-22-2023 06:30-0400 SaO2% (BldA) [Mass fraction] 99 % Rodrigo Morena [facility] 09-22-2023 06:30-0400 Systolic blood pressure 110 mm[Hg] Rodrigo Morena [facility] 09-22-2023 05:52-0400 Diastolic blood pressure 66 mm[Hg] Rodrigo Morena [facility] 09-22-2023 05:52-0400 Heart rate 76 /min Rodrigo Berg [facility] 09-22-2023 05:52-0400 Mean blood pressure 80 mm[Hg] Rodrigo Berg [facility] 09-22-2023 05:52-0400 Respiratory rate 18 /min Rodrigo Berg [facility] 09-22-2023 05:52-0400 SaO2% (BldA) [Mass fraction] 98 % Rodrigo Berg [facility] 09-22-2023 05:52-0400 Systolic blood pressure 109 mm[Hg] Rodrigo Berg [facility] 09-22-2023 05:29-0400 Body temperature 98.96 [degF] Rodrigo Berg [facility] 09-22-2023 05:29-0400 Heart rate 67 /min Rodrigo Berg [facility] 07-18-2023 00:06-0400 Body height 160 cm Elva Azevedo MD Work Phone: [facility] 07-18-2023 00:06-0400 Body mass index (BMI) [Ratio] 30.11 kg/m2 Elva Azevedo MD Work Phone: [facility] 07-18-2023 00:06-0400 Body temperature 98.29 [degF] El[facility] Azevedo MD [facility] 07-18-2023 00:06-0400 Body weight 77.11 kg Elva Azevedo MD Work Phone[facility] 07-18-2023 00:06-0400 Diastolic blood pressure 79 mm[Hg] Elva Azevedo MD Work Phone[facility] 07-18-2023 00:06-0400 Heart rate 61 /min Elva Azevedo MD Work Phone[facility] 07-18-2023 00:06-0400 Respiratory rate 16 /min Elva Azevedo MD Work Phone[facility] 07-18-2023 00:06-0400 SaO2% (BldA) [Mass fraction] 96 % Elva Azevedo MD Work Phone: [facility] 07-18-2023 00:06-0400 Systolic blood pressure 132 mm[Hg] Elva Azevedo MD Work Phone[facility] 07-07-2022 09:35-0400 Diastolic blood pressure 60 mm[Hg] Chris Bassam [facility] 07-07-2022 09:35-0400 Heart rate 83 /min Chris Bassam [facility] 07-07-2022 09:35-0400 SaO2% (BldA) [Mass fraction] 97 % Chris Dixonpsey [facility] 07-07-2022 09:35-0400 Systolic blood pressure 100 mm[Hg] Chris Banegas [facility] Encounters Encounter Date Encounter Type Care Provider Facility Start: 03-27-2024 End: 03-27-2024 Bamboo flowsheet Erinn Hitesh DO Work Phone: [facility] Start: 03-27-2024 End: 03-27-2024 Bamboo flowsheet Erinn Hitesh DO Work Phone: [facility] Start: 03-23-2024 End: 03-23-2024 Clinisync Result Encounter Erinn Hitesh DO Work Phone: [facility] External Department Unsolicited Start: 03-23-2024 End: 03-23-2024 Clinisync Result Encounter Erinn Hitesh DO Work Phone: [facility] External Department Unsolicited Start: 03-12-2024 End: 03-12-2024 flow sheet Valentina VARGAS Work Phone: [facility] Comment on above: 33 weeks gestation o f ; Third trimester Start: 03-12-2024 End: 03-12-2024 Bamboo flowsheet Valentina VARGAS Work Phone: [facility] Start: 03-12-2024 End: 03-12-2024 Bamboo flowsheet Valentina Cordova PA Work Phone: [facility] Start: 03-12-2024 End: 03-12-2024 ambulatory VALENTINA CORDOVA Not Available Start: 02-23-2024 End: 02-23-2024 flow sheet Valentina VARGAS Work Phone: [facility] Comment on above: size inconsist ent with dates (Primary Dx); Third trimester ; 30 weeks gestation of ; Herpes simplex Start: 02-23-2024 End: 02-23-2024 ambulatory VALENTINA CORDOVA Not Available Start: 02-23-2024 End: 02-23-2024 Bamboo flowsheet Valentina VARGAS Work Phone: [facility] Start: 02-23-2024 End: 02-23-2024 Bamboo flowsheet Valentina Cordova PA Work Phone: [facility] Start: 02-08-2024 End: 02-08-2024 ambulatory ERINN HITESH Not Available Start: 02-08-2024 End: 02-08-2024 flow sheet Erinn Hitesh DO Work Phone: [facility] Comment on above: Third trimester preg nadia; 28 weeks gestation of Start: 02-08-2024 End: 02-08-2024 Bamboo flowsheet Erinn Hitesh DO Work Phone: [facility] Start: 02-08-2024 End: 02-08-2024 Bamboo flowsheet Erinn Hitesh DO Work Phone: [facility] Start: 02-02-2024 End: 02-02-2024 ambulatory MOY YORK [facility] Start: 02-01-2024 End: 02-01-2024 Clinisync [...] 01-11-2024 flow sheet Valentina VARGAS Work Phone: [facility] Comment on above: Second trimester pre gnancy; 24 weeks gestation of ; Diabetes mellitus screening Start: 01-11-2024 End: 01-11-2024 ambulatory VALENTINA CORDOVA Not Available Start: 01-11-2024 End: 01-11-2024 Bamboo flowsheet Valentina VARGAS Work Phone: [facility] Start: 01-11-2024 End: 01-11-2024 Bamboo flowsheet Valentina VARGAS Work Phone: [facility] Start: 01-02-2024 End: 01-02-2024 Office consultation new/estab patient 60 min Moy York MD Work Phone: [facility] [place] Comment on above: Partial placenta pre via (Primary Dx) Start: 01-02-2024 End: 01-02-2024 Orders Only Sushila Mcneil RN [facility] [place] Comment on above: Low-lying placenta ( Primary Dx); Personal history of cardiac murmur Start: 12-20-2023 End: 12-20-2023 Chart abstracting Moy York MD Work Phone: [facility] Start: 12-16-2023 End: 12-16-2023 Chart abstracting Moy York MD Work Phone: [facility] Start: 12-14-2023 End: 12-14-2023 flow sheet Erinn Hitesh DO Work Phone: [facility] Comment on above: Second trimester pre gnancy; 20 weeks gestation of ; Partial placenta previa Start: 12-14-2023 End: 12-14-2023 ambulatory ERINN HITESH Not Available Start: 12-08-2023 End: 12-08-2023 ambulatory [facility] Work Phone: Start: 12-08-2023 End: 12-08-2023 Patient encounter procedure [facility]ly [facility] Work Phone: Start: 11-16-2023 End: 11-16-2023 Patient encounter procedure Erinn Hitesh DO Work Phone: [facility] Start: 11-16-2023 End: 11-16-2023 Periodic preventive med [...] End: 09-22-2023 Emergency department patient visit Rodrigo PowellMelina Berg [facility] Start: 07-18-2023 End: 07-18-2023 Emergency department patient visit ELVA [facility] Start: 07-18-2023 End: 07-18-2023 [facility] Work [facility]: [facility] ED Comment on above: De Quervain's tenosy novitis, left (Primary Dx) Start: 07-14-2023 End: 07-14-2023 ambulatory Love Martine Noriegae Facility:[facility] Start: 07-14-2023 End: 07-14-2023 Lab Drop off Love J Spencer [facility] Start: 06-15-2023 End: 06-15-2023 ambulatory ERINN HITESH Not Available Start: 07-07-2022 End: 07-07-2022 Patient encounter procedure Chris Banegas [facility] Start: 07-30-2021 End: 07-31-[address] ERINN PROCTOR Facility: Start: 07-15-2021 End: 07-15-2021 Lab Drop off Love J Spencer [facility] Procedures Date Procedure Procedure Detail Performing Clinician Start: 03-23-2024 [facility] UA (CLEAN/CATCH) SECONDARY TEACHER/MICRO IF IND. Erinn Proctor DO Work Phone: Start: 03-12-2024 Urnls dip stick/tabl et rgnt non-auto w/o micrscp Valentina VARGAS Work Phone: Start: 02-08-2024 Urnls dip stick/tabl et rgnt non-auto w/o micrscp Erinn Hitesh DO Work Phone: Start: 02-01-2024 GLUCOSE TOLERANCE [...] micrscp Erinn Deeo DO Work Phone: Start: 11-16-2023 IGP,APTIMA HPV,AGE GDLN Erinnboston Proctor DO Work Phone: Start: 11-16-2023 Microscopic observat ion [Identifier] in Cervix by Cyto stain Moy York MD Work Phone: Start: 11-16-2023 URETHRITIS/DISCHARGE PLUS VAGINITIS (HTRX) Erinn Proctor DO Work Phone: Plan of Treatment Date Care Activity Detail Author Start: 11-15-2026 Screening for malign ant neoplasm of cervix Pap Smear [facility] Start: 01-01-2025 End: 01-01-2025 US MFM with or without consult US MFM with or without consult Imaging Routine Low-lying placenta Personal history of cardiac murmur Expected: 01/01/2025 (Approximate), Expires: 01/01/2025 [facility] Work Phone: Comment on above: Expected: 01/01/2025 (Approximate), Expires: 01/01/2025 Start: 03-27-2024 End: 03-27-2024 Patient encounter procedure 03/27/2024 2:30 PM EST Routine [facility] [address] [place] [phone] Erinn Proctor DO [address], [place] [id number] [facility] Start: 03-12-2024 End: 03-12-2024 Patient encounter procedure 03/12/2024 2:40 PM EST Routine [facility] [address] [facility] [facility] [place] [address] Valentina Cordova PA [address] [place], [place] [phone] Arrived [facility] Comment on above: Arrived Start: 03-12-2024 End: 03-12-2024 Professional / ancillary services management 03/12/2024 1:00 PM EST Ancillary Procedure [facility] [address] [place] [address] [facility] Start: 02-23-2024 End: [...] PM EST Routine [facility] [address] [place] [phone] Erinn Proctor DO [address] [place] [address] [facility] Start: 02-02-2024 End: 02-02-2024 Patient encounter procedure 02/02/2024 1:00 PM EST Appointment [facility] [address] [place] [address] [facility] [place] Start: 01-11-2024 End: 01-11-2024 Patient encounter procedure 01/11/2024 2:30 PM EDT Routine [facility] [address] [facility] [place] [phone] Valentina Cordova PA [address] [place] [address] [facility] Start: 01-11-2024 End: 01-10-2025 CBC panel - Blood by Automated count CBC Lab Routine Diabetes mellitus screening Expected: 01/11/2024 (Approximate), Expires: 01/10/2025 [facility] Work Phone: Comment on above: Expected: 01/11/2024 (Approximate), Expires: 01/10/2025 Start: 01-11-2024 End: 01-10-2025 Measurement of glucose 1 hour after glucose challenge for glucose tolerance test Glucose tolerance, 1 hour Lab Routine Diabetes mellitus screening Expected: 01/11/2024 (Approximate), Expires: 01/10/2025 [facility] Comment on above: Expected: 01/11/2024 (Approximate), Expires: 01/10/2025 Start: 01-02-2024 End: 01-02-2024 Patient encounter procedure [facility] Start: 12-14-2023 End: 12-14-2023 Patient encounter procedure 12/14/2023 2:10 PM EDT Routine [facility] [address] [place] [address] Erinn Proctor, DO [address] [place] [address] [facility] Start: 12-14-2023 End: 12-14-2023 Professional / ancillary services management 12/14/2023 1:00 PM EDT Ancillary Procedure [facility] [address] [place] [phone] [facility] Start: 11-16-2023 End: 11-16-2023 Patient encounter procedure 11/16/2023 3:30 PM EDT Routine [facility] [address] [place] [phone] Erinn Proctor, DO [address] [place] [address] Arrived [facility] Comment on above: Arrived Start: 11-16-2023 End: 12-16-2023 Alpha fetoprotein, maternal Alpha fetoprotein, maternal Lab Routine Need for maternal serum alpha-protein (MSAFP) screening Expected: 11/16/2023 (Approximate), Expires: 12/16/2023 [facility] Comment on above: Expected: 11/16/2023 (Approximate), Expires: 12/16/2023 Start: 11-16-2023 End: 11-15-2024 US for US OB ANATOMY SINGLE W US OB CERVICAL LENGTH Imaging Routine Screening, , for anatomic survey Expected: 11/16/2023 (Approximate), Expires: 11/15/2024 [facility] Comment on above: Expected: 11/16/2023 (Approximate), Expires: 11/15/2024 Start: 11-13-2023 Influenza vaccination [facility] Start: 10-13-2023 Influenza vaccination Flu vacc ine (Season Ended) [facility] Start: 11-02-2021 DTaP,Tdap and Td Vaccines (7 - Td or Tdap) DTaP,Tdap and Td Vaccines (7 - Td or Tdap) [facility] Start: 12-11-2019 Screening for malign ant neoplasm of cervix Pap Smear [facility] Start: 2017 DTaP,Tdap and Td Vaccines (1 - Tdap) DTaP,Tdap and Td Vaccines (1 - Tdap) [facility] Start: 2017 DTaP/Tdap/Td vaccine (1 - Tdap) DTaP/Tdap/Td vaccine (1 - Tdap) [facility] Start: 2016 Adult BMI Follow Up Plan Adult BMI Follow Up Plan [facility] Start: 2016 Adult BMI Screening Adult BMI Screen ing [facility] Start: 2010 Depression Screening Depression Scre ening [facility] Start: 2010 Tobacco Screening Tobacco Screening [facility] Start: 06-10-1999 COVID-19 Vaccine (#1) COVID-19 Vacci ne (#1) [facility] CHLAMYDIA TRACHOMATI S (GENITO/STI) CHLAMYDIA TRACHOMATIS (GENITO/STI) Lab Routine Exposure to STD Ordered: 11/16/2023 [facility] Comment on above: Ordered: 11/16/2023 Cytology Cervical or vaginal smear or scraping study Pap Smear Pathology and Cytology Routine Well woman exam with routine gynecological exam Ordered: 11/16/2023 [facility] Work Phone: Comment on above: Ordered: 11/16/2023 Neisseria gonorrhoea e DNA [Presence] in Unspecified specimen by KESHIA with probe detection Neisseria gonorrhea DNA probe, direct Lab Routine Exposure to STD Ordered: 11/16/2023 [facility] Comment on above: Ordered: 11/16/2023 SURESWAB(R) ADVANCED VAGINITIS PLUS, TMA SURESWAB(R) ADVANCED VAGINITIS PLUS, TMA Pathology and Cytology Routine Exposure to STD Ordered: 11/16/2023 [facility] Comment on above: Ordered: 11/16/2023 Immunizations Immunization Date Immunization Notes Care Provider Carlota melchor 12-28-2018 influenza virus vacc ine, unspecified formulation Erinn Proctor DO Work Phone: [facility] Payers Date Payer Category Payer Blue Cross Blue Shield BCBS Memb er Subscriber Plan / Payer (Effective 2023-Present) Name: Ericka Aleman Relation to Subscriber: Self Name: Ericka Aleman Payer ID: Not on file Type: Not on file Address: [address] [place] [id number] 2023 [facility] Other ANTHEM [id number] 2023 Unknown 2023 Unknown [id number] .[id number] 1998 Unknown [id number] 2.16.840.1.414758.3.579 .2.593 1998 Unknown [id number] 2.16.840.1.399352.3.579 .2.173 1998 Unknown [id number] 2.16.840.1.476406.3.579 .2.727 1998 Unknown [id number] 2.16.840.1.754018.3.579 .2.727 1998 Unknown [id number] 2.16.840.1.268458.3.579 .2.727 1998 Unknown [id number] 2.16.840.1.506002.3.579 .2.1286 1998 Unknown [id number] 2.16.840.1.862339.3.579 .2.1286 1998 Unknown [id number] 2.16.840.1.475622.3.579 .2.1286 1998 Unknown [id number] 2.16.840.1.608572.3.579 .2.1259 1998 Unknown [id number] 2.16.840.1.976382.3.579 .2.9 1998 Unknown [id number] 2.16.840.1.299183.3.579 .2.9 1998 Unknown [id number] 2.16.840.1.446694.3.579 .2.1258 1998 Unknown [id number] 2.16.840.1.997335.3.579 .2.1259 1998 Unknown [id number] 2.16.840.1.125283.3.579 .2.9 1998 Unknown [id number] 2.16.840.1.438765.3.579 .2.9 1998 Unknown [id number] 2.16.840.1.653086.3.579 .2.1258 1998 Unknown [id number] 2.16.840.1.067226.3.579 .2.1259 1959 Unknown [id number] Social History Date Type Detail Facility Start: 10-24-2020 End: 01-02-2024 Tobacco smoking status Never smoked tobacco (finding) [facility] Tobacco smoking status Never [facility] Start: 07-01-2012 End: 01-02-2024 Sex Assigned At Female [facility] Start: 07-18-2023 End: 01-02-2024 Tobacco use and exposure Smokeless tobacco non-user [facility] Start: 07-18-2023 End: 01-02-2024 Alcohol intake Ex-drinker (finding) [facility] Start: 07-01-2012 End: 01-02-2024 History of Social function [facility] Start: 1998 Sex Assigned At Not on file [facility] Start: 1998 Sex Assigned At Female [facility] Tobacco smoking status NHIS Tobacco smoking consumption unknown [facility] Start: 08-06-2023 [facility] Start: 05-26-2022 Gender identity Identifies as female gender (finding) [facility] Start: 12-16-2023 Sex Female (finding) [facility] NEGATED: Highlighted rowStart: NINF History of tobacco use [facility] Goals Date Patient Goal Desired Activity /State Personal health goal Functional Status Date Assessment Result Facility 09-22-2023 Functional Status N/A [facility] 07-07-2022 Functional Status N/A [facility] Clinical Notes 07-15-2021 to 02-23-2024 [...] of: ALICIA Knutson documented in this encounter [facility] 02-08-2024 History of Present illness Narrative Reason [...] nursing note reviewed. Exam conducted with a quality control checker present. Vitals: Estimated body mass index is [...] Erinn Proctor DO documented in this encounter [facility] 01-11-2024 History of Present illness Narrative Reason [...] of: ALICIA Knutson documented in this encounter [facility] 01-02-2024 History of Present illness Narrative REASON FOR CONSULTATION: Posterior low-lying placenta. HISTORY OF PRESENT ILLNESS: Ericka Godwin Harness is a pleasant 23 y.o. G 3 [...] and the other consultants, we search on [email or web address] and all the available care everywhere epic I did review all the imaging studies of the patient available on EMR, ordered by the primary care physician and the other licensed tax consultant HABITS: Patient activity no restrictions, diet [...] patient is in complete care of her pharmacy technician per diem. Patient does have ultrasound scheduled with us. Thank you for allowing me to participate in [facility] . If there any questions please do [...] neg Have you been seen here at [facility] in a previous ? No Recent ER visits or hospitalizations? No Bring blood sugar log or meter with you today? (Please bring them with you for every visit at [facility]) N/A Flu vaccine (Jan-May)? N/A Any concerns that you would like me to mention to the provider today? No [facility] History of Present illness Narrative Reason [...] nursing note reviewed. Exam conducted with a quality control checker present. Vitals: Estimated body mass index is [...] partially covers os. Pt being referred to [facility] for evaluation of placenta previa. Pt to be on pelvic rest until further notice. Pt to return in 4 weeks. Documented by Kami Moss LPN on behalf of: Erinn Proctor DO documented in this encounter [facility] 11-16-2023 History of Present illness Narrative Reason [...] nursing note reviewed. Exam conducted with a quality control checker present. Vitals: Estimated body mass index is [...] Valentina Cordova PA-C documented in this encounter [facility] 09-22-2023 Evaluation + Plan note Extrac arvin from: Title:ED Note Author:Rodrigo Berg DO Date :09/22/23 Asymptomatic bacteriuria dur ing (O99.891: Other specified diseases and conditions complicating ) Bacteriuria (R82.71: Bacteriuria) Nausea and vomiting during (O21.9: Vomiting of , unspecified) Orders: cephalexin, 500 mg = 1 cap(s), Oral, q12hr, X 5 day(s), # 10 cap(s), Refills(s) 0, Pharmacy: [id number], 160, cm, 09/22/23 5:34:00 EDT, Height/Length Dosing, 72.4, kg, 09/22/23 5:34:00 EDT, Weight Dosing Lactated Ringers Injection, 1,000 mL, Soln-IV, IV, Once, Stop date 09/22/23 5:38:00 EDT, STAT, Start date 09/22/23 5:38:00 EDT, mL/hr, Infuse over 61, minute(s) promethazine, 12.5 mg = 1 tab(s), Oral, q8hr, PRN as needed for nausea/vomiting, # 12 tab(s), Refills(s) 0, Pharmacy: [id number], 160, cm, 09/22/23 5:34:00 EDT, Height/Length [...] Diagnostic Tests Pending * Urine Culture 09/22/23 [facility]07-11-2024 Hospital Discharge instructions Patient Education 09/22/2023 [...] Follow these instructions at home: Medicines Take aizf-axf-aglvrly and prescription medicines only as told by your health care provider. Do not use any prescription, jolk-bhg-tatztsw, or herbal medicines for morning sickness without [...] provider. Document Revised: 10/13/2020 Document Reviewed: 09/22/2020 [employer] Patient Education 2022 [employer] 09/22/2023 07:17:19 Asymptomatic Bacteriuria Asymptomatic Bacteriuria Asymptomatic [...] Follow these instructions at home: Medicines Take dvzw-rqa-jlzvrgu and prescription medicines only as told by [...] provider. Document Revised: 10/10/2020 Document Reviewed: 10/10/2020 [employer] Patient Education 2022 [email or web address]. Follow Up Care 09/22/2023 05:26:40 With:Erinn PROCTOR Address: [address] [place] [address] Business (1) When:09/25/2023 06:28:14 [facility]07-11-2024 NoteED Patient Education Note Obstetrics and [...] these instructions at home: Medicines ? Take moyg-sbz-gxlomhy and prescription medicines only as told by your health care provider. Do not use any prescription, ygsh-gyg-ykvhnky, or herbal medicines for morning sickness without [...] provider. Document Revised: 10/13/2020 Document Reviewed: 09/22/2020 [employer] Patient Education ? 2022 [email or web address]. Urology Asymptomatic Bacteriuria Asymptomatic bacteriuria is the [...] You are an o (more content not included)...[facility] 07-18-2023 Hospital Discharge instructions* Discharge Instructions* [...] sent through Care Everywhere. * Tenosynovitis: Wrist (Tunisian) [facility] Discharge instructions Patient Education 07/07/2022 [...] numbers. This can be done either in [place]ian ([place] or metric measurements. Note that charts and online BMI calculators are available to help you find your BMI quickly and easily without having to do these calculations yourself. To calculate your BMI in [place]ian ([place] measurements: 1.Measure your weight in pounds [...] Centers for Disease Control and Prevention: www.cdc.gov [place] [employer]: www.heart.org National Heart, Lung, and Blood [place]: www.nhlbi.nih.gov Summary Body mass index (BMI) is a number that is calculated from a person's weight and height. BMI may help estimate how much of a person's weight is composed of fat. BMI can help identify thosewho may be at higher risk for certain medical problems. BMI can be measured using Tunisian measurements or metric measurements. BMI charts are used to identify whether you are underweight, normal weight, overweight, or obese. This information is not intended to replace advice given to you by your health care provider. Make sure you discuss any questions you have with your health care provider. Document Revised: 11/21/2019 Document Reviewed: 09/28/2019 [employer] Patient Education 2022 [email or web address]. 07/07/2022 10:02:02 Tendinitis, Vxfr-gf-Qvuy Tendinitis Tendinitis is irritation and swelling (inflammation) [...] only as told by your doctor. Take pske-hcj-pollcwx and prescription medicines only as told by [...] provider. Document Revised: 11/05/2021 Document Reviewed: 11/05/[address]21 [employer] Patient Education 2022 [email or web address]. Follow Up Care 07/07/2022 09:19:19 With:NONE, XXXX Address: [phone] When: Unknown [facility] 05-04-2022 Evaluation + Plan note Diagnostic Tests Pending * Chlamydia/Gonococcus, KESHIA [facility]21 [facility]* Diagnosis De Quervain's tenosynovitis, left- Primary Radial styloid tenosynovitis [facility] noteNo assessment information available [facility] Work Phone: Evaluation note* Diagnosis Second trimester state, incidental 20 weeks gestation of Partial placenta previa Placenta previa without hemorrhage, unspecified as to episode of care documented in this encounter [facility] HealthcareEvaluation note* Diagnosis Partial placenta previa- Primary Placenta previa without hemorrhage, unspecified as to episode of care [facility] Diagnosis Low-lying placenta- Primary Hemorrhage from placenta previa, unspecified as to episode of care Personal history of cardiac murmur Personal history of other diseases of circulatory system [facility] Diagnosis Second trimester state, incidental 24 weeks gestation of Diabetes mellitus screening Screening for diabetes mellitus documented in this encounter [facility] HealthcareEvaluation note* Diagnosis Third trimester state, incidental 28 weeks gestation of documented in this encounter [facility] note* Diagnosis size inconsistent with dates- Primary Third trimester state, incidental 30 weeks gestation of Herpes simplex Herpes simplex without mention of complication documented in this encounter [facility] HealthcareEvaluation note* Diagnosis Well woman exam with routine gynecological exam Routine gynecological examination Second trimester state, incidental Exposure to STD Screening, , for anatomic survey Encounter for anatomic survey Need for maternal serum alpha-protein (MSAFP) screening [facility] Diagnosis 33 weeks gestation of Third trimester state, incidental documented in this encounter [facility] of Present illness Narrative* ALICIA Knutson - 03/12/2024 2:40 PM EST Reason for Appointment: Patient ID: Ericka Aleman is a 23 y.o. female who presents for Routine Visit Patient presents today for Return OB appointment. MEDICATIONS Current Outpatient Medications Medication Instructions ondansetron ODT (Zofran-ODT) 4 MG disintegrating tablet valACYclovir (VALTREX) 500 mg, Oral, Daily ALLERGIES [...] reviewed. Vitals: Estimated body mass index is 31.53 kg/m as calculated from the following: Height as of 07/05/22: 5' 3 . Weight as of this encounter: 178 lb. BP: 100/60 Patient's last menstrual period was 07/30/2023. ASSESSMENT & PLAN ICD-10-CM 1. 33 weeks gestation of Z3A.33 POCT urinalysis dipstick manually resulted 2. Third trimester Z34.93 POCT urinalysis dipstick manually resulted Return OB: Patient presents today for a routine obstetrics appointment. Patient is currently 33w2d . Patient states she is doing well but has complaints of being tired due to current . Patient has verbalizes frequent movement. labor precautions was discussed/given and patient was instructed to perform kick counts three times a day. Orders Placed This Encounter Procedures POCT urinalysis dipstick manually resulted Follow Up: Patient is to return to office in 1 week for routine OB appointment. Documented by ALICIA Knutson on behalf of: ALICIA Knutson [facility] Narrative No data available for this section [facility] No data available for this section [facility] HospitalInstructionsNot on filedocumented in this encounter [facility] System[facility]ructionsNot on filedocumented in this encounter [facility] SystemInstructionsNot on filedocumented in this encounter [facility] No data available for this section [facility] Reason for referral (narrative) Referred by: Chris Banegas PA-C [facility] Summary Purpose Family History No [...] CREATED AUTHOR AUTHOR'S ORGANIZ ATION 09/28/2023 August Mcclain [facility] DATE CREATED AUTHOR AUTHOR'S ORGANIZ ATION 09/29/2023 August Mcclain [facility] DATE CREATED AUTHOR AUTHOR'S ORGANIZ ATION 02/05/2024 [facility] DATE CREATED AUTHOR AUTHOR'S ORGANIZ ATION 03/13/2024 [facility] Reason for Visit (unrecogniz ed section and content) Reason Comments Wrist Injury Patient arrived to [facility] with complaints of left wrist injury. Patient states she slipped and went to grab a hold of something and injured her wrist approximately 1 hour [employer]. 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 had issues with [...] Care Teams (unrecognized sec tion and content) Net [employer] Developer Relationship Specialty Start Date End Date Unallocated, Robert Ram, [address] [place] [address] PCP - General Family Medicine 09/26/23 Team [...] BE BASED ON THE PRIMARY CLINICAL RECORDS. [facility] [employer] [facility]. provides no warranty or guarantee of the accuracy or completeness of information in this document.
--- NOTE | 2024-03-28 14:03 | US_ITS ---
[address] [address] Patient Name: SEBASTIAN ORELLANA MRN: [id number] date: 2000 Sex: F Assigned Patient Location: [facility] Current Patient Location: [facility] Accession/Order Number: [id number] Exam Date: 03/28/2024 14:05 Report Date: 03/28/2024 15:02 At the request of: ERINN ROSALES Procedure: US OB BPP w non-stress EXAMINATION: US OB BPP w non-stress HISTORY: Low fluid COMPARISON: No relevant comparison available. TECHNIQUE: Ultrasound biophysical profile was performed in the radiology department. non-reactive stress testing was performed by nursing staff in the birthing center. FINDINGS: BREATHING MOVEMENTS: 2 GROSS BODY MOVEMENTS: 2 TONE: 2 QUALITATIVE AMNIOTIC FLUID VOLUME: 2 PRESENTATION: CEPHALIC HEART RATE: 133.66 bpm AMNIOTIC FLUID VOLUME: 11.7 cm GESTATIONAL AGE: 35w4d US/US OB BPP w non-stress IMPRESSION: Total biophysical profile score: 8 Electronically authenticated by: GLENYS VASQUEZ Date: 03/28/2024 15:02
[2024-03-28 14:29] VITALS: BP 133/64; PULSE 96
== END 2024-03-28 14:55 | disposition home or self-care (01) ==
LOC: FBCO 00:50 → FBC 14:00
PROVIDERS: Visit Provider Obstetrics & Gynecology
DX: O41.03X0 Oligohydramnios, third trimester, not applicable or unspecified (principal); Z3A.35 35 weeks gestation of pregnancy
CPT/HCPCS: 76818

== ENCOUNTER 2024-04-03 14:36 | Outpatient (REF) | payer BC, SELFPAY ==
--- OUTSIDE RECORDS SUMMARY | 2024-04-04 10:01 | XMS_ITS | CCD ---
Author Organization [facility] Care Team Providers Care Fitness Club Manager Name Role Phone NONE, XXXX Primary Care [...] ERINN Attending Unavailable ERINN PROCTOR Attending Unavailable ERINN PROCTOR Attending Unavailable VALENTINA CORODVA Attending Unavailable HITESH, ERINN Attending Unavailable VALENTINA CORDOVA Attending Unavailable VALENTINA CORDOVA Attending Unavailable ERINN PROCTOR Attending Unavailable Medications Current Medications Medication Drug Class(es) Dates Sig (Normalized) Sig (Original) cephalexin 500 mg oral capsule (1 source) Cephalosporin Antibacterial Start: 09-22-2023 End: 09-27-2023 take 1 capsule by mouth every twelve hours Keflex 500 mg Cap 500 mg = 1 cap(s), Oral, q12hr, X 5 day(s), # 10 cap(s), Refills(s) 0, Pharmacy: [facility] #[id number], 160, cm, 09/22/23 5:34:00 EDT, Height/Length Dosing, 72.4, kg, 09/22/23 5:34:00 EDT, Weight Dosing Start Date: 09/22/23 Stop Date: 09/27/23 Status: Ordered citalopram 20 mg oral tablet (4 sources) Serotonin Reuptake Inhibitor Start: 03-12-2019 take 1 tablet by mouth once daily citalopram 20 mg Tab TAKE 1 TABLET BY MOUTH EVERY DAY Start Date: 03/12/19 Status: Ordered 21 day ethinyl estradiol 0.490111 mg/hr / etonogestrel 0.005 mg/hr vaginal system [...] needed for nausea or vomiting. Active Pnv #96-Lonn-Lpdte Acid-Omega3 (1 source) Start: 12-08-2023 Pnv #51-Samb-Nbekc Acid-Omega3 Active CAP PO December 08, 2023 12:00am predniSONE 20 mg oral tablet (1 source) Start: 07-07-2022 End: 07-12-2022 take 2 tablets by mouth once daily predniSONE 20 mg Tab 40 mg = 2 tab(s), Oral, Daily, X 5 day(s), # 10 tab(s), Refills(s) 0, Pharmacy: [facility]/pharmacy #[id number], 160, cm, 07/07/22 9:38:00 EDT, Height/Length [...] 12 tab(s), Refills(s) 0, Pharmacy: [facility]/pharmacy #[id number], 160, cm, 09/22/23 5:34:00 EDT, Height/Length [...] Daily 30 tablet 5 02/23/2024 08/21/2024 Active 24 hr venlafaxine 37.5 mg extended release oral capsule (3 sources) Serotonin and Norepinephrine Reuptake Inhibitor Start: 03-27-2024 End: 03-27-2025 take 1 capsule by mouth once daily venlafaxine XR (Effexor XR) 37.5 MG 24 hr capsule Indications: Mood disorder (CMS/HCC) Take 1 capsule (37.5 mg) by mouth Daily Do not crush or chew. 30 capsule 03/27/2024 03/27/2025 Active Completed/Discontinued Medications Medication Drug Class(es) Dates [...] trimester] Onset: 12-16-2023 12-14-2023 Episodic Mood disorders (6 sources) Depression; Translations: [Mood disorder] 05-25-2013 Chronic Other circulatory disease (1 source) [...] 07-07-2022 Chronic Other and delivery including normal (14 sources) Second trimester ; Translations: [Encounter for [...] [33 weeks gestation of ] 03-12-2024 Episodic Residual codes; unclassified (2 sources) Gestation period, 35 weeks; Translations: [35 weeks gestation of ] 03-27-2024 Episodic Unclassified (20 sources) OB Reminders Onset: [...] Range Facility Urinalysis macro (dipstick) panel (U)on 03-27-2024 Bilirubin, UA Negative Negative - 4(70) +++ mg/dL [facility] Blood, UA Negative Negative - 50 Raul/mcL [facility] Clarity, UA Clear [facility] Color, UA Yellow [facility] Glucose, UA Negative Negative - 2000(110) ++++ mg/dL [facility] Interpretation and review of laboratory results Abnormal [facility] Ketones, UA Positive Negative - 160(16) ++++ mg/dL [facility] Leukocytes, UA Negative Negative - 500+++ Anitra/mcL [facility] Nitrite, UA Negative Negative - Positive [facility] pH, UA 5.5 5 - 9 [facility] Protein, UA Negative Negative - 1999(20) ++++ mg/dL [facility] Spec Grav, UA 1.03 1 - 1.03 [facility] Urobilinogen, UA 0.2 0.2 - 12 mg/dL [facility] TBH UA (CLEAN/CATCH) 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 YELLOW YELLOW [facility] GLUCOSE URINE UA Negative NEGATIVE mg/dL [facility] Ketones Ql (U) Negative NEGATIVE mg/dL [facility] Leukocyte esterase Test strip Ql (U) Negative NEGATIVE [facility] NITRITE URINE Negative NEGATIVE [facility] pH (U) 6.0 [pH] 5.0 - 9.0 [facility] PROTEIN URINE Negative NEG/TRACE mg/dL [facility] SPECIFIC GRAVITY URINE 1.025 1.005 - 1.025 [facility] URINE MICROSCOPIC INDICATED NO [facility] UROBILINOGEN URINE 0.2 EU/dL 0.2 - 1.0 EU/dL [facility] Urinalysis macro (dipstick) panel (U)on 03-12-2024 Bilirubin, UA Negative Negative - 4(70) +++ mg/dL [facility] Blood, UA Not detected Negative - 50 Raul/mcL [facility] Clarity, UA Clear [facility] Color, UA Yellow [facility] Glucose, UA Negative Negative - 1999(110) ++++ mg/dL [facility] Interpretation and review of laboratory results Abnormal [facility] Ketones, UA Negative Negative - 160(16) ++++ mg/dL [facility] Leukocytes, UA Negative Negative - 500+++ Anitra/mcL [facility] Nitrite, UA Negative Negative - Positive [facility] pH, UA 6 5 - 9 [facility] Protein, UA Trace Negative - 1999(20) ++++ mg/dL [facility] Spec Grav, UA 1.03 1 - 1.03 [facility] Urobilinogen, UA 0.2 0.2 - 12 mg/dL [facility] Urinalysis macro (dipstick) panel (U)on 02-08-2024 Bilirubin, UA Negative Negative - 4(70) +++ mg/dL [facility] Blood, UA Negative Negative - 50 Raul/mcL [facility] Clarity, UA Clear [facility] Color, UA Yellow [facility] Glucose, UA Negative Negative - 1999(110) ++++ mg/dL [facility] Interpretation and review of laboratory results Abnormal [facility] Ketones, UA Positive Negative - 160(16) ++++ mg/dL [facility] Comment on above: trace Leukocytes, UA Negative Negative - 500+++ Anitra/mcL [facility] Nitrite, UA Negative Negative - Positive [facility] pH, UA 6 5 - 9 [facility] Protein, UA Negative Negative - 1999(20) ++++ mg/dL [facility] Spec Grav, UA 1.03 1 - 1.03 [facility] Urobilinogen, UA 0.2 0.2 - 12 mg/dL [facility] GLUCOSE TOLERANCE 3 HOURon 04-02-2023 GLUCOSE TOLERANCE 3 HOUR mg/dL [facility] Comment on above: GLU FAST 88 (<95) Co l: 02/01/24 1310 GLU 1HR 177 (<180) Col: 02/01/24 1412 GLU 2HR 131 (<155) Col: 02/01/24 1512 GLU 3HR 106 (<140) Col: 02/01/24 1612 [facility] ALL CBC WITH AUTO DIFFon BASOPHILS ABSOLUTE AUTO 0 N [facility] Basophils/100 WBC (Bld) 0.2 % 0.2 - 2.0 % [facility] Eosinophils/100 WBC (Bld) 0.8 % Low 0.9 - 7.0 % [facility] Erythrocyte distribution width (RBC) [Ratio] 12.4 % 11.0 - 15.0 % [facility] Hematocrit (Bld) [Volume fraction] 34.2 % Low 36.0 - 48.0 % [facility] Hemoglobin (Bld) [Mass/Vol] 11.7 g/dL Low 12.0 - 16.0 g/dL [facility] IMMATURE GRANULOCYTES ABS AUTO 0.2 High [facility] Immature granulocytes/100 WBC (Bld) 1.5 % High 0.0 - 0.5 % [facility] LYMPHOCYTES ABSOLUTE AUTO 2.7 [facility] Lymphocytes/100 WBC (Bld) 20.2 % Low 20 .5 - 60.0 % [facility] MCH (RBC) [Entitic mass] 31.4 pg 26. 7 - 34.0 pg [facility] MCHC (RBC) [Mass/Vol] 34.2 g/dL 29.9 - 35.2 g/dL [facility] MCV (RBC) [Entitic vol] 91.7 fL 81.0 - 99.0 fL [facility] MONOCYTES ABSOLUTE AUTO 0.8 N [facility] Monocytes/100 WBC (Bld) 6.2 % 1.7 - 12.0 % [facility] NEUTROPHILS ABSOLUTE AUTO 9.4 High [facility] Neutrophils/100 WBC (Bld) 71.1 % 43 .0 - 75.0 % [facility] Platelet mean volume (Bld) [Entitic vol] 9 fL Low 9.5 - 13.5 fL [facility] TBH EO # 0.1 [facility] TB PLT [address] [facility] RBC 3.[address] [facility] WBC 13.2 High [facility] GLUCOSE 1 HOURon 01-28-2024 Glucose [Mass/Vol] 140 mg/dL High NINF - 13 0 mg/dL [facility] No Panel Informationon 01-27 Interpretation and review of laboratory results Abnormal [facility] Urinalysis macro (dipstick) panel (U)on 01-11-2024 Bilirubin, UA Negative Negative - 4(70) +++ mg/dL [facility] Blood, UA Negative Negative - 50 Raul/mcL [facility] Clarity, UA Clear [facility] Color, UA Yellow [facility] Glucose, UA Negative Negative - 1999(110) ++++ mg/dL [facility] Interpretation and review of laboratory results Normal [facility] Ketones, UA Negative Negative - 160(16) ++++ mg/dL [facility] Leukocytes, UA Negative Negative - 500+++ Anitra/mcL [facility] Nitrite, UA Negative Negative - Positive [facility] pH, UA 55 5 - 9 [facility] Protein, UA Negative Negative - 1999(20) ++++ mg/dL [facility] Spec Grav, UA 1.02 1 - 1.03 [facility] Urobilinogen, UA 1.0 0.2 - 12 mg/dL [facility] Urinalysis macro (dipstick) panel (U)on 12-14-2023 Bilirubin, UA Negative Negative - 4(70) +++ mg/dL [facility] Blood, UA Negative Negative - 50 Raul/mcL [facility] Clarity, UA Clear [facility] Color, UA Yellow [facility] Glucose, UA Negative Negative - 1999(110) ++++ mg/dL [facility] Interpretation and review of laboratory results Normal [facility] Ketones, UA Negative Negative - 160(16) ++++ mg/dL [facility] Leukocytes, UA Negative Negative - 500+++ Anitra/mcL [facility] Nitrite, UA Negative Negative - Positive [facility] pH, UA 5.5 5 - 9 [facility] Protein, UA Negative Negative - 1999(20) ++++ mg/dL [facility] Spec Grav, UA 1.025 1 - 1.03 [facility] Urobilinogen, UA 0.2 0.2 - 12 mg/dL [facility] No Panel InformationOrdered By: Christopher Ma on 12-08-2023 Quick Strep (POC) [facility] IGP,APTIMA HPV,AGE GDLNon AGE GDLN ACOG TESTING Note . [facility] Comment on above: TESTS RESULT FLAG UN ITS REF RANGE LAB Clinician Provided Cytology Information Source.............Cervix No. of containers..01 ThinPrep Vial Age Algo ACOG Radha... FLAG LEGEND: L-Low Normal,H-High Normal,LL-Alert Low,HH-Alert High <-Panic Low,>-Panic High,A-Abnormal,AA-Critical Abnormal Performed at: 01 =G [facility] [address] [facility] [place] [address] Luz Marina Swann MD, IGP, RFX APTIMA HPV ASCU Note . [facility] Comment on above: TESTS RESULT FLAG UN ITS REF RANGE LAB DIAGNOSIS: 02 NEGATIVE FOR INTRAEPITHELIAL LESION OR MALIGNANCY. Specimen adequacy: 02 Satisfactory for evaluation. No endocervical component is identified. Performed by: Quentin Paige, Power Generation Plant Operator ([facility]) . 02 Note: Note 02 The Pap [...] <-Panic Low,>-Panic High,A-Abnormal,AA-Critical Abnormal Performed at: 02 WB [facility] [address] [place] [address] Luz Marina Swann MD, Performed at: = - [facility] [id number] Area Forester: Luz Marina Swann MD, Phone: [phone] Performed at: - [facility] [id number] Area Forester: Luz Marina Swann MD, Phone: [phone] SPATULA-ALONE CERVIX [facility] URETHRITIS/DISCHARGE PLUS VA GINITIS (HTRX)on 11-19-2023 ATOPOBIUM VAGINAE 30.582 Abnormal [facility] ATOPOBIUM VAGINAE Detected Abnormal [facility] BVAB 2,3 (BACTERIAL VAGINOSIS ASSOCIATED BACTERIA 2, 3); MOBILUNCUS SPP 22.805 Abnormal [facility] BVAB 2,3 (BACTERIAL VAGINOSIS ASSOCIATED BACTERIA 2, 3); MOBILUNCUS SPP Detected Abnormal [facility] KEVIN ALBICANS, PARAPSILOSIS, TROPICALIS 0.000 [facility] KEVIN ALBICANS, PARAPSILOSIS, TROPICALIS Not detected [facility] KEVIN GLABRATA 0.000 [facility] KEVIN GLABRATA Not detected [facility] KEVIN KRUSEI 0.000 [facility] KEVIN KRUSEI Not detected [facility] CHLAMYDIA TRACHOMATIS 0.000 [facility] CHLAMYDIA TRACHOMATIS Not detected [facility] ERMB, C; MEFA 25.492 Abnormal [facility] ERMB, C; MEFA Detected Abnormal [facility] GARDNERELLA VAGINALIS 27.081 Abnormal [facility] GARDNERELLA VAGINALIS Detected Abnormal [facility] Interpretation and review of laboratory results Abnormal [facility] MEGASPHAERA (TYPES 1, 2) 0.000 [facility] MEGASPHAERA (TYPES 1, 2) Not detected [facility] MYCOPLASMA GENITALIUM 0.000 [facility] MYCOPLASMA GENITALIUM Not detected [facility] NEISSERIA GONORRHOEAE 0.000 [facility] NEISSERIA GONORRHOEAE Not detected [facility] TET B, TET M 23.652 Abnormal [facility] TET B, TET M Detected Abnormal [facility] TRICHOMONAS VAGINALIS 0.000 [facility] TRICHOMONAS VAGINALIS Not detected [facility] Urinalysis macro (dipstick) panel (U)on 11-16-2023 Bilirubin, UA Positive Negative - 4(70) +++ mg/dL [facility] Comment on above: small Blood, UA Negative Negative - 50 Raul/mcL [facility] Clarity, UA Clear [facility] Color, UA Yellow [facility] Glucose, UA Negative Negative - 1999(110) ++++ mg/dL [facility] Interpretation and review of laboratory results Normal [facility] Ketones, UA Positive Negative - 160(16) ++++ mg/dL [facility] Comment on above: trace Leukocytes, UA Negative Negative - 500+++ Anitra/mcL [facility] Nitrite, UA Negative Negative - Positive [facility] pH, UA 5.5 5 - 9 [facility] Protein, UA Negative Negative - 1999(20) ++++ mg/dL [facility] Spec Grav, UA 1.030 1 - 1.03 [facility] Urobilinogen, UA 1.0 0.2 - 12 mg/dL [facility] C Urineon 09-24-2023 Bacteria identified Cx [...] Locations R1: This test was performed at: [facility], [address] [place] [address], [address] , , [facility] Comment on above: Performed By: #### 2 [id number] #### [facility] [address] [place] [address] BMPon 09-22-2023 Anion gap [Moles/Vol] 13 mmol/L Normal 6-16 [facility] Comment on above: Performed By: #### 2 [id number] #### [facility] [address] [place] [address] Calcium [Mass/Vol] 8.9 mg/dL Normal 8.9-11.1 [facility] Comment on above: Performed By: #### 2 [id number] #### [facility] [address] [place] [address] Chloride [Moles/Vol] 103 mmol/L Normal 101-111 [facility] Comment on above: Performed By: #### 2 [id number] #### [facility] [address] [place] [address] CO2 [Moles/Vol] 21 mmol/L Normal 21-31 [facility] Comment on above: Performed By: #### 2 [id number] #### [facility] [address] [place] [address] Creatinine [Mass/Vol] 0.6 mg/dL Normal 0.5-1.3 [facility] Comment on above: Performed By: #### 2 104497 #### [facility] [address] [place] [address] Glucose [Mass/Vol] 89 mg/dL Normal 55-199 [facility] Comment on above: Performed By: #### 2 [id number] #### [facility] [address] [place] [address] Potassium [Moles/Vol] 3.5 mmol/L Normal 3.5-5.3 [facility] Comment on above: Performed By: #### 2 017395 #### [facility] [address] [place] [address] Sodium [Moles/Vol] 133 mmol/L Low 135-145 [facility] Comment on above: Performed By: #### 2 453076 #### [facility] [address] [place] [address] Urea nitrogen [Mass/Vol] 5 mg/dL Normal 5-21 [facility] Comment on above: Performed By: #### 2 416167 #### [facility] [address] [place] [address] Urea nitrogen/Creatinine [Mass ratio] 8 No Units Low 10-20 [facility] Comment on above: Performed By: #### 2 536054 #### [facility] [address] [place] [address] CBC w/ Auto Diffon 4 Basophils/100 WBC (Bld) 0.2 % Normal 0.0-2.0 [facility] Comment on above: Performed By: #### 2 486608 #### [facility] [address] [place] [address] Basophils/Leukocytes Auto (Bld) [Pure # fraction] 0.0 E9/L Normal 0.0-0.2 [facility] Comment on above: Performed By: #### 2 182672 #### [facility] [address] [place] [address] Eosinophils (Bld) [#/Vol] 0.1 E9/L Normal 0.0-0.5 [facility] Comment on above: Performed By: #### 2 [id number] #### [facility] [address] [place] [address] Eosinophils/100 WBC (Bld) 0.7 % Normal 0.0-8.0 [facility] Comment on above: Performed By: #### 2 [id number] #### [facility] [address] [place] [address] Erythrocyte distribution width (RBC) [Ratio] 13.1 % Normal 10.9-14.2 [facility] Comment on above: Performed By: #### 2 789544 #### [facility] [address] [place] [address] Hematocrit (Bld) [Volume fraction] 39.9 % Normal 34.0-46.0 [facility] Comment on above: Performed By: #### 2 125467 #### [facility] [address] [place] [address] Hemoglobin (Bld) [Mass/Vol] 14.0 g/dL Normal 12.0-16.0 [facility] Comment on above: Performed By: #### 2 960619 #### [facility] [address] [place] [address] Lymphocytes (Bld) [#/Vol] 1.8 E9/L Normal 1.0-4.0 [facility] Comment on above: Performed By: #### 2 420642 #### [facility] [address] [place] [address] Lymphocytes/100 WBC (Bld) 18.5 % Normal 14.0-50.0 [facility] Comment on above: Performed By: #### 2 721045 #### [facility] [address] [place] [address] MCH (RBC) [Entitic mass] 31.9 pg Normal 27.0-34.0 [facility] Comment on above: Performed By: #### 2 715162 #### [facility] [address] [place] [address] MCHC (RBC) [Mass/Vol] 35.2 g/dL Normal 31.4-36.0 [facility] Comment on above: Performed By: #### 2 095595 #### [facility] [address] [place] [address] MCV (RBC) [Entitic vol] 90.5 fL Normal 80.0-100.0 [facility] Comment on above: Performed By: #### 2 445501 #### [facility] [address] [place] [address] Monocytes (Bld) [#/Vol] 0.5 E9/L Normal 0.2-1.0 [facility] Comment on above: Performed By: #### 2 017270 #### [facility] [address] [place] [address] Neutrophils (Bld) [#/Vol] 7.3 E9/L Normal 2.0-7.5 [facility] Comment on above: Performed By: #### 2 039702 #### [facility] [address] [place] [address] Neutrophils/100 WBC (Bld) 75.5 % High 36.0-75.0 [facility] Comment on above: Performed By: #### 2 617369 #### [facility] [address] [place] [address] Platelet 415.0 E9/L Normal 150.0-500.0 [facility] Comment on above: Performed By: #### 2 729567 #### [facility] [address] [place] [address] Platelet mean volume (Bld) [Entitic vol] 6.6 fL Normal 6.4-10.8 [facility] Comment on above: Performed By: #### 2 424050 #### [facility] [address] [place] [address] RBC (Bld) [#/Vol] 4.4 E12/L Normal 4.3-5.9 [facility] Comment on above: Performed By: #### 2 094524 #### [facility] [address] [place] [address] WBC corrected for nucl RBC Auto (Bld) [#/Vol] 9.7 E9/L Normal 4.0-11.0 [facility] Comment on above: Performed By: #### 2 563698 #### [facility] [address] [place] [address] CHEMISTRYOrdered By: SYSTEM SYSTEM on 09-22-2023 Albumin [...] 2023 ED Clinical Summary ED Clinical Summary [place] [address] ED Clinical Summary Person Information Name: ERICKA ALEMAN [facility]i/[facility] Age: 22 Years : 2000 Sex: Female Language: American PCP: NONE, XXXX Marital Status: Single Visit [...] 09/22/2023 07:17:18 09/22/2023 07:17:18 09/22/2023 07:17:18 ADDRESS: [address] [place] [id number] PHYS DOC NOTES: MEDICAL INFORMATION: Prescriptions Given: New Medications [id number], [address] [place], [place] [phone], [phone] cephalexin (Keflex 500 mg Cap) 1 Capsules [...] up: With: Address: When: Erinn PROCTOR [facility], [address] [place] [address] [place] [address] Business (1) In 3 days 09/25/2023 DIAGNOSIS: Asymptomatic bacteriuria during ; Bacteriuria; Nausea and vomiting during Normal [facility] ED Note-Physicianon 09-22-19 ED Note-Physician ED [...] that she was prescribed Zofran by her CLINICAL INFORMATICS EDUCATOR but is still having nausea and vomiting [...] and Complexity of Problems Differential Diagnosis: [] [facility] Data External documents reviewed: N/A My EKG [...] follow-up close with Dr. Proctor her established CLINICAL INFORMATICS EDUCATOR. Shared decision making: As above Code status: N/A Assessment/Plan Asymptomatic bacteriuria during (O99.891: Other specified diseases and conditions complicating ) Bacteriuria (R82.71: Bacteriuria) Nausea and vomiting during (O21.9: Vomiting of , unspecified) Orders: cephalexin, 500 mg = 1 cap(s), Oral, q12hr, X 5 day(s), # 10 cap(s), Refills(s) 0, Pharmacy: [facility] #[id number], 160, cm, 09/22/23 5:34:00 EDT, Height/Length Dosing, 72.4, kg, 09/22/23 5:34:00 EDT, Weight Dosing Lactated Ringers Injection, 1,000 mL, Soln-IV, IV, Once, Stop date 09/22/23 5:38:00 EDT, STAT, Start date 09/22/23 5:38:00 EDT, mL/hr, Infuse over 61, minute(s) promethazine, 12.5 mg = 1 tab(s), Oral, q8hr, PRN as needed for nausea/vomiting, # 12 tab(s), Refills(s) 0, Pharmacy: [id number], 160, cm, 09/22/23 5:34:00 EDT, Height/Length [...] Cult Rflx Urine Culture Medications Administered Given [id number] [F], 1000 mL, IV Sodium Chloride 0.9% IV Kaylyn 50 mL [F] 50 mL + [id number] [F] 12.5 mg, IV Piggyback Disposition Plan Discharge Prescription List Prescriptions Keflex 500 mg Cap, 500 mg= 1 cap(s), Oral, q12hr promethazine 12.5 mg oral tablet, 12.5 mg= 1 tab(s), Oral, q8hr, PRN Follow-up With When Contact Information Erinn PROCTOR In 3 days 09/25/[address] , [place] [address]- Business (1) Additional Instructions: Patient Education Morning Sickness Asymptomatic Bacteriuria Problem List/Past Medical History Ongoing Anxiety History of cold sores Right otitis media Historical Denies Depression Procedure/Surgical History None. Medications Inpatient LR 1000 mL Bolus, 1000 mL, IV, Once promethazine additive 12.5 mg + Sodium Chloride 0.9% IV Kaylyn 50 (more content not included)... Normal [facility] Comment on above: Result Comment: Elec tronically Signed By: Rodrigo Berg DO\.br\Date and Time Signed: 09/22/23 06:44 EDT ED Patient Summaryon 024 ED Patient Summary ED Patient Summary [address] [address] Patient Discharge Instructions Person Information Name: ERICKA ALEMAN Age: 22 Years Arrival Date: 09/22/2023 05:24:18 Discharge Diagnosis: Asymptomatic bacteriuria during ; Bacteriuria; Nausea and vomiting during Primary Care Physician: NONE, XXXX Provider Information Primary Provider: Rodrigo Berg DO Advanced Disaster Recovery Analyst:None The exam and treatment you received in the Emergency Department were for an urgent problem and are not intended as complete care. It is important that you follow up with a doctor, nurse practitioner, or physician?s physician's assistant for ongoing care. If your symptoms [...] Instructions: With: Address: When: Erinn PROCTOR [facility], [address] [place] [address] [place] [address] Business (1) In 3 days 09/25/2023 In the event that this physician does not participate in your insurance network, please consult with your insurance company to find a nearby participating provider. Patient Education Materials: Morning Sickness; Asymptomatic Bacteriuria A MESSAGE TO ALL PATIENTS REGARDING OPIOIDS PRESCRIPTION OPIOIDS: WHAT YOU NEED TO KNOW Prescription opioids can be used to help relieve [id number] pain and are often prescribed following a [...] tell y (more content not included)... Normal [facility] HEMATOLOGYOrdered By: SYSTEM SYSTEM on 09-22-2023 [...] 09-22-2023 Albumin [Mass/Vol] 4.2 g/dL Normal 3.3-5.0 [facility] Comment on above: Performed By: #### 2 [id number] #### [facility] [address] [place] [address] Albumin/Globulin (S) [Mass conc ratio] 1.3 Normal 1.1-2.2 [facility] Comment on above: Performed By: #### 2 [id number] #### [facility] [address] [place] [address] ALP [Catalytic activity/Vol] 68 Int._Unit/L Normal 21-98 [facility] Comment on above: Performed By: #### 2 [id number] #### [facility] [address] [place] [address] ALT No additional P-5'-P [Catalytic activity/Vol] 18 Int._Unit/L Normal 6-46 [facility] Comment on above: Performed By: #### 2 [id number] #### [facility] [address] [place] [address] AST [Catalytic activity/Vol] 17 Int._Unit/L Normal 5-43 [facility] Comment on above: Performed By: #### 2 [id number] #### [facility] [address] [place] [address] Bilirubin [Mass/Vol] 0.5 mg/dL Normal 0.0-1.1 [facility] Comment on above: Performed By: #### 2 [id number] #### [facility] [address] [place] [address] Bilirubin.direct [Mass/Vol] 0.1 mg/dL Normal 0.0-0.4 [facility] Comment on above: Performed By: #### 2 [id number] #### [facility] [address] [place] [address] Bilirubin.indirect [Mass or moles/Vol] 0.4 mg/dL Normal 0.1-0.9 [facility] Comment on above: Performed By: #### 2 [id number] #### [facility] [address] [place] [address] Globulin (S) [Mass/Vol] 3.2 g/dL Normal 1.4-4.0 [facility] Comment on above: Performed By: #### 2 [id number] #### [facility] [address] [place] [address] Protein [Mass/Vol] 7.4 g/dL Normal 6.0-7.8 [facility] Comment on above: Performed By: #### 2 [id number] #### [facility] [address] [place] [address] Lipase Levelon 09-22-2023 Lipase [Catalytic activity/Vol] 30 U/L Normal 13-58 [facility] Comment on above: Performed By: #### 2 [id number] #### [facility] [address] [place] [address] UA with Cult Rflxon 09-22-19 24 Bacteria Auto Ql (U) 2+ /HPF Abnormal Trace Fish er [facility] Comment on above: Performed By: #### 4 [id number] #### [facility] [address] [place] [address] Bilirubin Ql (U) Negative Normal Negative [facility] Comment on above: Performed By: #### 4 [id number] #### [facility] [address] [place] [address] Clarity (U) Ex.Turbid Abnormal Clear [facility] Comment on above: Performed By: #### 4 [id number] #### [facility] [address] [place] [address] Color (U) Yellow Normal Yellow [facility] Comment on above: Result Comment: Micr oscopic readings are only performed on those samples that meet specific criteria set forth by [facility]. Performed By: #### 4 [id number] #### [facility] [address] [place] [address] Epithelial cells.squamous Auto (Urine sed) [#/Area] >10 Invalid Interpretation Code [facility] Comment on above: Performed By: #### 4 [id number] #### [facility] [address] [place] [address] Glucose Ql (U) Negative Normal Negative [facility] Comment on above: Performed By: #### 4 [id number] #### [facility] [address] [place] [address] Hemoglobin Auto test strip (U) [Mass/Vol] Negative Normal Negative [facility] Comment on above: Performed By: #### 4 [id number] #### [facility] [address] [place] [address] Ketones Auto test strip Ql (U) 4+ mg/dL Abnormal Negative [facility] Comment on above: Performed By: #### 4 [id number] #### [facility] [address] [place] [address] Leukocyte esterase Auto test strip Ql (U) 250 Anitra/uL Abnormal Negative [facility] Comment on above: Performed By: #### 4 [id number] #### [facility] [address] [place] [address] Mucus Auto Ql (U) 3+ Abnormal Negative [facility] Comment on above: Performed By: #### 4 [id number] #### [facility] [address] [place] [address] Nitrite Auto test strip Ql (U) Negative Normal Negative [facility] Comment on above: Performed By: #### 4 [id number] #### [facility] [address] [place] [address] pH (U) 6.0 [pH] Invalid Interpretation Code 5.0-9.0 [facility] Comment on above: Performed By: #### 4 [id number] #### [facility] [address] [place] [address] Protein Ql (U) Trace Abnormal Negative [facility] Comment on above: Performed By: #### 4 [id number] #### [facility] [address] [place] [address] Specific gravity (U) [Rel density] 1.023 Invalid Interpretation Code 1.005-1.030 [facility] Comment on above: Performed By: #### 4 [id number] #### [facility] [address] [place] [address] Urobilinogen (U) [Mass/Vol] Negative Normal Negative [facility] Comment on above: Performed By: #### 4 [id number] #### [facility] [address] [place] [address] WBC Auto (Urine sed) [#/Area] 31-75 Abnormal 0-5 [facility] Comment on above: Performed By: #### 4 [id number] #### [facility] [address] [place] [address] Type of Urine collection method Clean Catch Normal [facility] Comment on above: Performed By: #### 4 [id number] #### [facility] [address] [place] [address] URINALYSISOrdered By: Jennifer Santacruz on 09-22-2023 Bacteria [...] that meet specific criteria set forth by [facility]. Epithelial cells.squamous Auto (Urine sed) [...] AM) Invalid Interpretation Code 5.0 - 9.0 [facility] UA Auto SS Protein Ql (U) Trace mg/dL Invalid Interpretation Code Negativemg/d L [facility] UA Auto SS Specific gravity (U) [Rel density] 1.023 *NA* (09/22/23 5:47 AM) Invalid Interpretation Code 1.005 - 1.030 [facility] UA Auto SS Urobilinogen (U) [Mass/Vol] Negative Normal Negativemg/d L [facility] UA Auto SS WBC Auto (Urine sed) [#/Area] 31-75 *ABN* (09/22/23 5:47 AM) Invalid Interpretation Code 0-5 [facility] UA Auto SS URINALYSISOrdered By: Rodrigo leung on 09-22-2023 UA Spec Desc Clean Catch (09/22/23 5:47 AM) Normal [facility] UA Auto SS Work Phone: eGFRon 09-22-2023 eGFR 128 mL/min/1.73 m2 Normal >=59 [facility] Comment on above: Order Comment: Order added by Discern Expert. Performed By: #### 1 [id number] #### [facility] [address] [place] [address] PAP [id number] 07-19-2023 Cytology report Cyto stain Doc (Cvx/Vag) Note Invalid Interpretation Code [facility] Comment on above: Result Comment: TEST S RESULT FLAG UNITS REF RANGE LAB Clinician Provided Cytology Information Source.............Endocervix No. of containers..01 ThinPrep Vial DIAGNOSIS: 01 NEGATIVE FOR INTRAEPITHELIAL LESION OR MALIGNANCY. Specimen adequacy: 01 Satisfactory for evaluation. Endocervical and/or squamous metaplastic cells (endocervical component) are present. Performed by: Quinn Elise, Power Generation Plant Operator (ASCP) . 01 Note: Note 01 The Pap smear is a screening test designed to aid in the detection of premalignant and malignant conditions of the uterine cervix. It is not a diagnostic procedure and should not be used as the sole means of detecting cervical cancer. Both false-positive and false-negative reports do occur. Test Methodology: Note 01 The [employer](R) Translation Director was unable to read this specimen. Therefore a manual review was performed. . 01 The HPV DNA reflex criteria were not met with this specimen result therefore, no HPV testing was performed. FLAG LEGEND: L-Low Normal,H-High Normal,LL-Alert Low,HH-Alert High <-Panic Low,>-Panic High,A-Abnormal,AA-Critical Abnormal Performed at: 01 [facility] [address] [id number] Luz Marina Swann MD, Performed at: [facility] [address] [id number] MD Shree Raza Performed By: #### 3 [id number] #### [facility] [address] [place] [address] PAP [id number] 07-16-2023 Collection Technique BRUSH-SPATULA Normal F [facility] Comment on above: Performed By: #### 3 [id number] #### [facility] [address] [place] [address] Gynecological Body Site ENDOCERVIX Normal F [facility] Comment on above: Performed By: #### 3 [id number] #### [facility] [address] [place] [address] Physician Orderon 07-14-2023 Physician Order [id number] Normal [facility] DHEA SERUMon 08-11-2021 Dehydroepiandrosterone (DHEA) 339 ng/dL Normal 31-701 [facility] Comment on above: Result Comment: [...] 701 Performed By: #### Justin SERRANO. #### [facility] [address] [place], [place] [address] Dr. Austen Hernadez DHEA-SULFATEon 08-01-2021 DHEA-Sulfate 247.0 ug/dL Normal 110.0-431.7 [facility] Comment on above: Performed By: #### Justin LEBLANC #### [facility] [address] [place] [address] Dr. Austen Hernadez FSHon 08-01-2021 FSH 1.6 mIU/mL Normal [facility] Comment on above: Result Comment: Adul t Female: Follicular phase 3.5 - 12.5 Ovulation phase 4.7 - 21.5 Luteal phase 1.7 - 7.7 Postmenopausal 25.8 - 134.8 Performed By: #### L BCFSH #### [facility] [address] [place] [address] Dr. Austen Hernadez LUTEINIZING HORMONE (LH)on 0 08-01-2021 LH 2.6 mIU/mL Normal [facility] Comment on above: Result Comment: Adul t Female: Follicular phase 2.4 - 12.6 Ovulation phase 14.0 - 95.6 Luteal phase 1.0 - 11.4 Postmenopausal 7.7 - 58.5 Performed By: #### L BCLH #### [facility] [address] [place] [address] [address] Austen Hernadez CBC AUTO DIFFon 07-30-2021 BASO # 0.0 103/ul Normal 0.0-0.1 [facility] Comment on above: Performed By: #### C BC #### [facility] [address] [place] [address] [address] Austen Hernadez Basophils/100 WBC (Bld) 0.2 % Normal 0.2-2.0 [facility] Comment on above: Performed By: #### C BC #### [facility] [address] [place] [address] Dr. Austen Hernadez EO # 0.1 103/ul Normal 0.0-0.7 [facility] Comment on above: Performed By: #### C BC #### [facility] [address] [place] [address] Dr. Austen Hernadez Eosinophils/100 WBC (Bld) 1.2 % Normal 0.9-7.0 [facility] Comment on above: Performed By: #### C BC #### [facility] [address] [place] [address] Dr. Austen Hernadez Erythrocyte distribution width (RBC) [Ratio] 12.1 % Normal 11.0-15.0 [facility] Comment on above: Performed By: #### C BC #### [facility] [address] [place] [address] Dr. Austen Hernadez Hematocrit (Bld) [Volume fraction] 40.2 % Normal 36.0-48.0 [facility] Comment on above: Performed By: #### C BC #### [facility] [address] [place] [address] Dr. Austen Hernadez Hemoglobin (Bld) [Mass/Vol] 13.3 g/dL Normal 12.0-16.0 [facility] Comment on above: Performed By: #### C BC #### [facility] [address] [place] [address] Dr. Austen Hernadez IG # 0.04 10e3/ul Critically high 0.00-0.03 [facility] Comment on above: Performed By: #### C BC #### [facility] [address] [place] [address] Dr. Austen Hernadez IG % 0.5 % Normal 0.0-0.5 [facility] Comment on above: Performed By: #### C BC #### [facility] [address] [place] [address] Dr. Austen Hernadez LYMPH # 1.7 103/ul Normal 1.2-3.8 [facility] Comment on above: Performed By: #### C BC #### [facility] [address] [place] [address] Dr. Austen Hernadez Lymphocytes/100 WBC (Bld) 20.1 % Critically low 20.5-6 0.0 [facility] Comment on above: Performed By: #### C BC #### [facility] [address] [place] [address] Dr. Austen Hernadez MANUAL DIFF REQ NO Normal [facility] Comment on above: Performed By: #### C BC #### [facility] [address] [place] [address] Dr. Austen Hernadez MCH (RBC) [Entitic mass] 30.0 pg Normal 26.7-34.0 [facility] Comment on above: Performed By: #### C BC #### [facility] [address] [place] [address] Dr. Austen Hernadez MCHC (RBC) [Mass/Vol] 33.1 g/dL Normal 29.9-35.2 [facility] Comment on above: Performed By: #### C BC #### [facility] [address] [place] [address] Dr. Austen Hernadez MCV (RBC) [Entitic vol] 90.5 fL Normal 81.0-99.0 [facility] Comment on above: Performed By: #### C BC #### [facility] [address] [place] [address] Dr. Austen Hernadez MONO # 0.5 103/ul Normal 0.3-0.8 [facility] Comment on above: Performed By: #### C BC #### [facility] [address] [place] [address] Dr. Austen Hernadez Monocytes/100 WBC (Bld) 5.8 % Normal 1.7-12.0 [facility] Comment on above: Performed By: #### C BC #### [facility] [address] [place] [address] Dr. Austen Hernadez NEUT # 6.2 103/ul Normal 1.4-6.5 [facility] Comment on above: Performed By: #### C BC #### [facility] [address] [place] [address] [address] Austen Hernadez Neutrophils/100 WBC (Bld) 72.2 % Normal 43.0-75.0 [facility] Comment on above: Performed By: #### C BC #### [facility] [address] [place] [address] [address] Austen Hernadez Platelet mean volume (Bld) [Entitic vol] 8.2 fL Critically low 9.5-13.5 [facility] Comment on above: Performed By: #### C BC #### [facility] [address] [place] [address] [address] Austen Hernadez PLT 350 103/ul Normal 150-450 [facility] Comment on above: Performed By: #### C BC #### [facility] [address] [place] [address] Dr. Austen Hernadez RBC 4.44 106/ul Normal 4.20-5.40 [facility] Comment on above: Performed By: #### C BC #### [facility] [address] [place] [address] [address] Austen Hernadez WBC 8.6 103/ul Normal 4.0-11.0 [facility] Comment on above: Performed By: #### C BC #### [facility] [address] [place] [address] Dr. Austen Hernadez GLYCOHEMOGLOBIN A1Con 2021 ADA RECOMMENDATION SEE BELOW Normal [facility] Comment on above: Result Comment: ADA RECOMMENDED LIMIT 4.0 - 6.0 ADA THERAPEUTIC TARGET < 7.0 ACTION SUGGESTED > 7.0 Performed By: #### A 1C #### [facility] [address] [place] [address] Dr. Austen Hernadez Glucose [Mass/Vol] 108 mg/dL Normal [facility] Comment on above: Performed By: #### A 1C #### [facility] [address] [place] [address] Dr. Austen Hernadez HbA1c (Bld) [Mass fraction] 5.4 % Normal 4.5-6.2 [facility] Comment on above: Performed By: #### A 1C #### [facility] [address] [place] [address] [address] Austen Hernadez TSHon 07-30-2021 TSH 1.365 uIU/mL Normal 0.358-3.740 [facility] Comment on above: Performed By: #### T SH #### [facility] [address] [place] [address] Dr. Austen Hernadez TSH RANGE SEE BELOW Normal [facility] Comment on above: Result Comment: <0.3 4 UIU/ml HYPERTHYROID 0.34-5.60 UIU/ml EUTHYROID >5.60 UIU/ml HYPOTHYROID Performed By: #### T SH #### [facility] [address] [place] [address] Dr. Austen Hernadez US PELVIS AND TRANSVAGon [...] by: MACARENA GARCIA Date: 2021-07-30 15:31 Normal [facility] Vital Signs Date Time Vital Sign Value Performing Clinician Facility 03-27-2024 14:43-0500 Body mass index (BMI) [Ratio] 31.78 kg/m2 Fluid Phone: [facility] 03-27-2024 14:43-0500 Body weight 81.38 kg Erinn Hitesh DO Work Phone: [facility] 03-27-2024 14:43-0500 Diastolic blood pressure 68 mm[Hg] Erinn Hitesh DO Work Phone: [facility] 03-27-2024 14:43-0500 Systolic blood pressure 104 mm[Hg] Erinn Hitesh DO Work Phone: [facility] 03-12-2024 13:34-0500 Body mass index (BMI) [Ratio] 31.53 kg/m2 Valentina Suzi PA Work Phone: [facility] 03-12-2024 13:34-0500 Body weight 80.74 kg Valentina Suzi PA Work Phone: [facility] 03-12-2024 13:34-0500 Diastolic blood pressure 60 mm[Hg] Valentina Georgetown PA Work Phone: [facility] 03-12-2024 13:34-0500 Systolic blood pressure 100 mm[Hg] Valentina Suzi PA Work Phone: [facility] 02-23-2024 15:40-0500 Body mass index (BMI) [Ratio] 30.82 kg/m2 Valentina Georgetown PA Work Phone: [facility] 02-23-2024 15:40-0500 Body weight 78.93 kg Valentina Georgetown PA Work Phone: [facility] 02-23-2024 15:40-0500 Diastolic blood pressure 76 mm[Hg] Valentina Suzi PA Work Phone: [facility] 02-23-2024 15:40-0500 Systolic blood pressure 116 mm[Hg] Valentina Georgetown PA Work Phone: [facility] 02-08-2024 15:51-0500 Body mass index (BMI) [Ratio] 30.11 kg/m2 Erinn Hitesh DO Work Phone: [facility] 02-08-2024 15:51-0500 Body weight 77.11 kg Erinn Hitesh DO Work Phone: [facility] 02-08-2024 15:51-0500 Diastolic blood pressure 72 mm[Hg] Erinn Hitesh DO Work Phone: [facility] 02-08-2024 15:51-0500 Systolic blood pressure 118 mm[Hg] Erinn Hitesh DO Work Phone: [facility] 01-11-2024 14:51-0400 Body mass index (BMI) [Ratio] 28.84 kg/m2 Valentina Georgetown PA Work Phone: [facility] 01-11-2024 14:51-0400 Body weight 73.85 kg Valentina Georgetown PA Work Phone: [facility] 01-11-2024 14:51-0400 Diastolic blood pressure 64 mm[Hg] Valentina Georgetown PA Work Phone: [facility] 01-11-2024 14:51-0400 Systolic blood pressure 102 mm[Hg] Valentina Cordova PA Work Phone: [facility] 01-02-2024 10:36-0400 Body height 160 cm Moy York MD Work Phone: [facility] 01-02-2024 10:36-0400 Body mass index (BMI) [Ratio] 28.48 kg/m2 Moy York MD Work Phone: [facility] 01-02-2024 10:36-0400 Body weight 72.94 kg Moy York MD Work Phone: [facility] 01-02-2024 10:36-0400 Diastolic blood pressure 64 mm[Hg] Moy York MD Work Phone: [facility] 01-02-2024 10:36-0400 Heart rate 67 /min Moy York MD Work Phone: [facility] 01-02-2024 10:36-0400 Systolic blood pressure 100 mm[Hg] Moy York MD Work Phone: [facility] 12-14-2023 14:35-0400 Body mass index (BMI) [Ratio] 28.48 kg/m2 Erinn Hitesh DO Work Phone: [facility] 12-14-2023 14:35-0400 Body weight 72.92 kg Erinn Hitesh DO Work Phone: [facility] 12-14-2023 14:35-0400 Diastolic blood pressure 66 mm[Hg] Erinn Hitesh DO Work Phone: [facility] 12-14-2023 14:35-0400 Systolic blood pressure 108 mm[Hg] Erinn Hitesh DO Work Phone: [facility] 12-08-2023 17:27-0400 Body height 160.02 cm [facility] 12-08-2023 17:27-0400 Body mass index (BMI) [Ratio] 28.3 kg/m2 [facility] 12-08-2023 17:27-0400 Body temperature 98.6 [degF] [facility] 12-08-2023 17:27-0400 Body weight 72.57 kg [facility] 12-08-2023 17:27-0400 Diastolic blood pressure 69 mm[Hg] [facility] 12-08-2023 17:27-0400 Heart rate 87 /min [facility] 12-08-2023 17:27-0400 SaO2% (BldA) [Mass fraction] 97 % [facility] 12-08-2023 17:27-0400 Systolic blood pressure 107 mm[Hg] [facility] 11-16-2023 16:05-0400 Body mass index (BMI) [Ratio] 26.93 kg/m2 Erinn Hitesh DO Work Phone: [facility] 11-16-2023 16:05-0400 Body weight 68.95 kg Erinn Hitesh DO Work Phone: [facility] 11-16-2023 16:05-0400 Diastolic blood pressure 70 mm[Hg] Erinn Hitesh DO Work Phone: [facility] 11-16-2023 16:05-0400 Systolic blood pressure 118 mm[Hg] Erinn Deeo DO Work Phone: [facility] 09-22-2023 07:00-0400 Diastolic blood pressure 85 mm[Hg] [...] 160 cm Elva Azevedo MD Work Phone: [facility] [employer] 07-18-2023 00:06-0400 Body mass index (BMI) [Ratio] 30.11 kg/m2 Elva Azevedo MD [facility] Phone[facility] 07-18-2023 00:06-0400 Body temperature 98.29 [degF] Elva Azevedo MD Work Phone: [facility] [employer] 07-18-2023 00:06-0400 Body weight 77.11 kg Elva Azevedo MD Work Phone: [facility] [employer] 07-18-2023 00:06-0400 Diastolic blood pressure 79 mm[Hg] Elva Azevedo MD Work Phone: [facility] 07-18-2023 00:06-0400 Heart rate 61 /min Elva Azevedo MD Work Phone: [facility] 07-18-2023 00:06-0400 Respiratory rate 16 /min Elva Azevedo MD Work Phone: [facility] 07-18-2023 00:06-0400 SaO2% (BldA) [Mass fraction] 96 % Elva Azevedo MD Work Phone: [facility] 07-18-2023 00:06-0400 Systolic blood pressure 132 mm[Hg] Elva Azevedo MD Work Phone: [facility] 07-07-2022 09:35-0400 Diastolic blood pressure 60 mm[Hg] Chris Banegas [facility] 07-07-2022 09:35-0400 Heart rate 83 /min Chris Banegas [facility] 07-07-2022 09:35-0400 SaO2% (BldA) [Mass fraction] 97 % Chris Banegas [facility] 07-07-2022 09:35-0400 Systolic blood pressure 100 mm[Hg] Chris Banegas [facility] Encounters Encounter Date Encounter Type Care Provider Facility Start: 04-03-2024 End: 04-03-2024 Bamboo flowsheet Erinn Hitesh DO Work Phone: [facility] Start: 04-03-2024 End: 04-03-2024 Bamboo flowsheet Erinn Hitesh DO Work Phone: [facility] Start: 03-27-2024 End: 03-27-2024 ambulatory ERINN HITESH Not Available Start: 03-27-2024 End: 03-27-2024 flow sheet Erinn Hitesh DO Work Phone: [facility] Comment on above: Third trimester preg nadia; 35 weeks gestation of ; Mood disorder ([facility]) Start: 03-27-2024 End: 03-27-2024 Bamboo flowsheet Erinn Hitesh DO Work Phone: [facility] Start: 03-27-2024 End: 03-27-2024 Bamboo flowsheet Erinn Hitesh DO Work Phone: [facility] Start: 03-23-2024 End: 03-23-2024 Clinisync Result Encounter Erinn Hitesh DO Work Phone: [facility] Unsolicited Start: 03-23-2024 End: 03-23-2024 Clinisync Result Encounter Erinn Hitesh DO Work Phone: [facility] Unsolicited Start: 03-12-2024 End: 03-12-2024 flow sheet Valentina VARGAS Work Phone: [facility] Comment on above: 33 weeks gestation o f ; Third trimester Start: 03-12-2024 End: 03-12-2024 Bamboo flowsheet Valentina VARGAS Work Phone: [facility] Start: 03-12-2024 End: 03-12-2024 Bamboo flowsheet Valentina VARGAS Work Phone: [facility] Start: 03-12-2024 End: 03-12-2024 [...] BCP OB Start: 02-02-2024 End: 02-02-2024 ambulatory [facility] Start: 02-01-2024 End: 02-01-2024 [...] VARGAS Work Phone: [facility] Start: 01-11-2024 End: 01-11-2024 Bamboo flowsheet Valentina VARGAS Work Phone: [facility] Start: 01-02-2024 End: 01-02-2024 Office consultation new/estab patient 60 min Moy York MD Work Phone: [facility] Comment on above: Partial placenta pre via (Primary Dx) Start: 01-02-2024 End: 01-02-2024 Orders Only Sushila Mcneil RN [facility] Comment on above: Low-lying placenta ( Primary Dx); Personal history of cardiac murmur Start: 12-20-2023 End: 12-20-2023 Chart abstracting Moy York MD Work Phone: [facility] at [facility] Start: 12-16-2023 End: 12-16-2023 Chart abstracting Moy York MD Work Phone: [facility] at [facility] Start: 12-14-2023 End: 12-14-2023 flow sheet Erinn Hitesh DO Work Phone: [facility] Comment on above: Second trimester pre gnancy; 20 weeks gestation of ; Partial placenta previa Start: 12-14-2023 End: 12-14-2023 ambulatory ERINN HITESH Not Available Start: 12-08-2023 End: 12-08-2023 ambulatory [facility] Work Phone: Start: 12-08-2023 End: 12-08-2023 Patient encounter procedure [facility] Work Phone: Start: 11-16-2023 End: 11-16-2023 Patient encounter procedure Erinn Hitesh DO Work Phone: [facility] Start: 11-16-2023 End: 11-16-2023 Periodic preventive med [...] 11-16-2023 End: 11-20-2023 Clinisync Result Encounter Erinn Hitehs DO Work Phone: [facility] External Department Unsolicited [...] 09-22-2023 Emergency department patient visit Rodrigo Berg [facility] Start: 07-18-2023 End: 07-18-2023 [facility] Start: 07-18-2023 End: 07-18-2023 Emergency department patient visit Elva Azevedo MD Work Phone: [facility] ED Comment on above: Mai's tenosy novitis, left (Primary Dx) Start: 07-14-2023 End: 07-14-2023 ambulatory Love Palmer Facility:[facility] Start: 07-14-2023 End: 07-14-2023 Lab Drop off Love Palmer [facility] Start: 06-15-2023 End: 06-15-2023 ambulatory ERINN PROCTOR Not Available Start: 07-07-2022 End: 07-07-2022 Patient encounter procedure Chris Dixonpsey [facility] Start: 07-30-2021 End: 07-31-[address] ERINN PROCTOR Facility:[facility] Start: 07-15-2021 End: 07-15-2021 Lab Drop off Love Martine Noriegae [facility] Procedures Date Procedure Procedure Detail Performing Clinician Start: 03-27-2024 Urnls dip stick/tabl et rgnt non-auto w/o micrscp Erinnboston Deeo DO Work Phone: Start: 03-23-2024 TBH UA (CLEAN/CATCH) DESIZING PAD OPERATOR/MICRO IF IND. Erinn Deeo DO Work Phone: Start: 03-12-2024 Urnls dip [...] micrscp Erinn Hitesh DO Work Phone: Start: 12-08-2023 Quick Strep (POC) Start: 11-16-2023 Urnls dip stick/tabl et rgnt non-auto w/o micrscp Erinn Hitesh DO Work Phone: Start: 11-16-2023 IGP,APTIMA HPV,AGE GDLN Erinn Hitesh DO Work Phone: Start: 11-16-2023 Microscopic observat ion [Identifier] in Cervix by Cyto stain Moy York MD Work Phone: Start: 11-16-2023 URETHRITIS/DISCHARGE PLUS VAGINITIS (HTRX) Erinn Hitesh DO Work Phone: Plan of Treatment Date Care Activity Detail Author Start: 11-15-2026 Screening for malign ant neoplasm of cervix Pap Smear Hochy eto Start: 01-01-2025 End: 01-01-2025 US MFM with or without consult US MFM with or without consult Imaging Routine Low-lying placenta Personal history of cardiac murmur Expected: 01/01/2025 (Approximate), Expires: 01/01/2025 [employer] Work Phone: Comment on above: Expected: 01/01/2025 (Approximate), Expires: 01/01/2025 Start: 04-03-2024 End: 04-03-2024 Patient encounter procedure 04/03/2024 1:30 PM EST Routine [facility] [address] [place] [address] Erinn Proctor, DO [address] [place] [address] [facility] Start: 03-27-2024 End: 03-27-2024 Patient encounter procedure 03/27/2024 2:30 PM EST Routine [facility] [address] [place] [address] Erinn Proctor, DO [address] [place] [address] [facility] Start: 03-12-2024 End: 03-12-2024 Patient encounter procedure 03/12/2024 2:40 PM EST Routine [facility] [address] [place] [address] Valentina Cordova PA [address] [place] [address] Arrived [facility] Comment on above: Arrived Start: 03-12-2024 End: 03-12-2024 Professional / ancillary services management 03/12/2024 1:00 PM EST Ancillary Procedure [facility] [address] [place] [address] [facility] Start: 02-23-2024 End: [...] PM EST Routine [facility] [address] [place] [address] Erinn Proctor, DO [address], [place] [id number] [facility] Start: 02-02-2024 End: 02-02-2024 Patient encounter procedure 02/02/2024 1:00 PM EST Appointment [facility] [address] [place] [address] [place] [address] [facility] Start: 01-11-2024 End: 01-11-2024 Patient encounter procedure 01/11/2024 2:30 PM EDT Routine [facility] [address] [place] [phone] Valentina Cordova PA [address] [place], [place] [id number] [facility] Start: 01-11-2024 End: 01-10-2025 CBC panel - Blood by Automated count CBC Lab Routine Diabetes mellitus screening Expected: 01/11/2024 (Approximate), Expires: 01/10/2025 [facility] Work Phone: Comment on above: Expected: 01/11/2024 (Approximate), Expires: 01/10/2025 Start: 01-11-2024 End: 01-10-2025 Measurement of glucose 1 hour after glucose challenge for glucose tolerance test Glucose tolerance, 1 hour Lab Routine Diabetes mellitus screening Expected: 01/11/2024 (Approximate), Expires: 01/10/2025 [facility] Comment on above: Expected: 01/11/2024 (Approximate), Expires: 01/10/2025 Start: 01-02-2024 End: 01-02-2024 Patient encounter procedure [facility] Start: 12-14-2023 End: 12-14-2023 Patient encounter procedure 12/14/2023 2:10 PM EDT Routine [facility] [address] [place] [phone] Erinn Proctor DO [address], [place] [id number] [facility] Start: 12-14-2023 End: 12-14-2023 Professional / ancillary services management 12/14/2023 1:00 PM EDT Ancillary Procedure [facility] [address] [place] [address] [facility] Start: 11-16-2023 End: 11-16-2023 Patient encounter procedure 11/16/2023 3:30 PM EDT Routine [facility] [address] [place] [phone] Erinn Proctor, [address] [place] [address] Arrived [facility] Comment on above: Arrived Start: 11-16-2023 End: 12-16-2023 Alpha fetoprotein, maternal Alpha fetoprotein, maternal Lab Routine Need for maternal serum alpha-protein (MSAFP) screening Expected: 11/16/2023 (Approximate), Expires: 12/16/2023 [facility] Comment on above: Expected: 11/16/2023 (Approximate), Expires: 12/16/2023 Start: 11-16-2023 End: 11-15-2024 US for US OB ANATOMY SINGLE W US OB CERVICAL LENGTH Imaging Routine Screening, , for anatomic survey Expected: 11/16/2023 (Approximate), Expires: 11/15/2024 [facility] Comment on above: Expected: 11/16/2023 (Approximate), Expires: 11/15/2024 Start: 11-13-2023 Influenza vaccination N [facility] Start: 10-13-2023 Influenza vaccination Flu vacc ine (Season Ended) [facility] Start: 11-02-2021 DTaP,Tdap and Td Vaccines (7 - Td or Tdap) DTaP,Tdap and Td Vaccines (7 - Td or Tdap) [facility] Start: 12-11-2019 Screening for malign ant neoplasm of cervix Pap Smear [facility] Start: 2017 DTaP,Tdap and Td Vaccines (1 - Tdap) DTaP,Tdap and Td Vaccines (1 - Tdap) [facility] Start: 2017 DTaP/Tdap/Td vaccine (1 - Tdap) DTaP/Tdap/Td vaccine (1 - Tdap) [facility] Start: 2016 Adult BMI Follow Up Plan Adult BMI Follow Up Plan [facility] Start: 2016 Adult BMI Screening Adult BMI Screen ing [facility] Start: 2010 Depression Screening Depression Scre ening [facility] Start: 2010 Tobacco Screening Tobacco Screening [facility] Start: 06-10-1999 COVID-19 Vaccine (#1) COVID-19 Vacci ne (#1) [facility] CHLAMYDIA TRACHOMATI S (GENITO/STI) CHLAMYDIA TRACHOMATIS (GENITO/STI) Lab Routine Exposure to STD Ordered: 11/16/2023 [facility] Comment on above: Ordered: 11/16/2023 Cytology Cervical or vaginal smear or scraping study Pap Smear Pathology and Cytology Routine Well woman exam with routine gynecological exam Ordered: 11/16/2023 [facility] Work Phone: Comment on above: Ordered: 11/16/2023 Neisseria gonorrhoea e DNA [Presence] in Unspecified specimen by KESHIA with probe detection Neisseria gonorrhea DNA probe, direct Lab Routine Exposure to STD Ordered: 11/16/2023 [facility] Comment on above: Ordered: 11/16/2023 SURESWAB(R) ADVANCED VAGINITIS PLUS, TMA SURESWAB(R) ADVANCED VAGINITIS PLUS, TMA Pathology and Cytology Routine Exposure to STD Ordered: 11/16/2023 [facility] Comment on above: Ordered: 11/16/2023 Immunizations Immunization Date Immunization Notes Care Provider Carlota melchor 12-28-2018 influenza virus vacc ine, unspecified formulation Erinn Proctor DO Work Phone: [facility] Payers Date Payer Category Payer [facility] BCBS [id number] 2023 Blue Cross Blue Shie ld Managed Care - Other ANTHEM [id number] 2023 Unknown 2023 Unknown [id number] .[id number] 1998 Unknown [id number] 2.16840.1.390863.3.579 .2.593 1998 Unknown [id number] 2.16.840.1.631489.3.579 .2.173 1998 Unknown [id number] 2.16.840.1.301295.3.579 .2.727 1998 Unknown [id number] 2.16.840.1.802390.3.579 .2.727 1998 Unknown [id number] 2.16.840.1.420680.3.579 .2.727 1998 Unknown [id number] 2.16.840.1.616289.3.579 .2.1286 1998 Unknown [id number] 2.16.840.1.232830.3.579 .2.1286 1998 Unknown [id number] 2.16.840.1.963249.3.579 .2.1286 1998 Unknown [id number] 2.16.840.1.227807.3.579 .2.1259 1998 Unknown [id number] 2.16.840.1.376967.3.579 .2.9 1998 Unknown [id number] 2.16.840.1.759171.3.579 .2.9 1998 Unknown [id number] 2.16.840.1.325471.3.579 .2.9 1998 Unknown [id number] 2.16.840.1.819481.3.579 .2.1258 1998 Unknown [id number] 2.16.840.1.952428.3.579 .2.9 1998 Unknown [id number] 2.16.840.1.194438.3.579 .2.1258 1998 Unknown [id number] 2.16.840.1.130312.3.579 .2.9 1998 Unknown [id number] 2.16.840.1.685935.3.579 .2.1258 1998 Unknown [id number] 2.16.840.1.259239.3.579 .2.1259 1959 Unknown [id number] Social History Date Type Detail Facility Start: 10-24-2020 End: 01-02-2024 Tobacco smoking status Never smoked tobacco (finding) [facility] Tobacco smoking status Never [facility] Start: 07-01-2012 End: 01-02-2024 Sex Assigned At Female [facility] Start: 07-18-2023 End: 01-02-2024 Tobacco use and exposure Smokeless tobacco non-user [employer] Start: 07-18-2023 End: 01-02-2024 Alcohol intake Ex-drinker (finding) [facility] Start: 07-01-2012 End: 01-02-2024 History of Social function [employer] Start: 1998 Sex Assigned At Not on file [facility] Start: 1998 Sex Assigned At Female [facility] Tobacco smoking status IDIS Tobacco smoking consumption unknown [facility] Start: 08-06-2023 [facility] Start: 05-26-2022 Gender identity Identifies as female gender (finding) [facility] Start: 12-16-2023 Sex Female (finding) [facility] NEGATED: Highlighted rowStart: JOSHUAF History of tobacco use Passive smoker [facility] Goals Date Patient Goal Desired Activity /State Personal health goal Functional Status Date Assessment Result Facility 09-22-2023 Functional Status N/A August Tato [facility] 07-07-2022 Functional Status N/[facility] Clinical Notes 07-15-2021 to 03-27-2024 Kami Moss LPN - 03/27/2024 2:30 PM ALICIA Aparicio - 02/23/2024 3:20 PM Malcolm Moss LPN - 02/08/2024 3:10 PM ALICIA Aparicio - 01/11/2024 2:30 PM Griselda Mcneil RN - 01/02/2024 11:00 AM EDT Note Date & Type Note Facility 03-27-2024 History of Present illness Narrative Reason for [...] nursing note reviewed. Exam conducted with a globe changer present. Vitals: Estimated body mass index is 31.78 kg/m as calculated from the following: Height as of 07/05/22: 5' 3 . Weight as of this encounter: 179 lb 6.4 oz. BP: 104/68 Patient's last menstrual period was 07/30/2023. ASSESSMENT & PLAN ICD-10-CM 1. Third trimester Z34.93 POCT urinalysis dipstick manually resulted 2. 35 weeks gestation of Z3A.35 Return OB: Patient presents today for a routine obstetrics appointment. Patient is currently 35w3d . Patient states she is doing well but has complaints of being tired due to current . Patient has verbalizes frequent movement. labor precautions was discussed/given and patient was instructed to perform kick counts three times a day. Pt states anxiety is getting worse. Discussed all concerns rx for effexor faxed to pharmacy. Orders Placed This Encounter Procedures POCT urinalysis dipstick manually resulted Follow Up: Patient is to return to office in 1 week for routine OB appointment. Documented by Kami Moss LPN on behalf of: Erinn Proctor DO documented in this encounter [facility] 02-23-2024 History of Present illness Narrative Reason [...] of: ALICIA Knutson documented in this encounter [facility] 02-08-2024 History of Present illness Narrative Reason [...] nursing note reviewed. Exam conducted with a globe changer present. 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 Patient does have ultrasound scheduled with us. Thank you for allowing me to participate in [employer] . If there any questions please do [...] neg Have you been seen here at [facility] in a previous ? No Recent ER visits or hospitalizations? No Bring blood sugar log or meter with you today? (Please bring them with you for every visit at [facility]) N/A Flu vaccine (Jan-May)? N/A Any concerns that you would like me to mention to the provider today? No documented in this encounter [facility] 12-14-2023 History of Present illness Narrative Reason [...] nursing note reviewed. Exam conducted with a globe changer present. Vitals: Estimated body mass index is [...] partially covers os. Pt being referred to [facility] for evaluation of placenta previa. Pt to be on pelvic rest until further notice. Pt to return in 4 weeks. Documented by Kami Moss LPN on behalf of: Erinn Proctor DO documented in this encounter [facility] 11-16-2023 History of Present illness Narrative Reason [...] nursing note reviewed. Exam conducted with a globe changer present. Vitals: Estimated body mass index is [...] Valentina Cordova PA-C documented in this encounter [facility] 09-22-2023 Evaluation + Plan note Extrac arvin from: Title:ED Note Author:Rodrigo Berg DO Date :09/22/23 Asymptomatic bacteriuria dur ing (O99.891: Other specified diseases and conditions complicating ) Bacteriuria (R82.71: Bacteriuria) Nausea and vomiting during (O21.9: Vomiting of , unspecified) Orders: cephalexin, 500 mg = 1 cap(s), Oral, q12hr, X 5 day(s), # 10 cap(s), Refills(s) 0, Pharmacy: [facility]/pharmacy #[id number], 160, cm, 09/22/23 5:34:00 EDT, Height/Length Dosing, 72.4, kg, 09/22/23 5:34:00 EDT, Weight Dosing Lactated Ringers Injection, 1,000 mL, Soln-IV, IV, Once, Stop date 09/22/23 5:38:00 EDT, STAT, Start date 09/22/23 5:38:00 EDT, mL/hr, Infuse over 61, minute(s) promethazine, 12.5 mg = 1 tab(s), Oral, q8hr, PRN as needed for nausea/vomiting, # 12 tab(s), Refills(s) 0, Pharmacy: [facility]/pharmacy #[id number], 160, cm, 09/22/23 5:34:00 EDT, Height/Length [...] Follow these instructions at home: Medicines Take wxsm-psp-amwldjl and prescription medicines only as told by your health care provider. Do not use any prescription, egsc-oxz-bbionbo, or herbal medicines for morning sickness without [...] provider. Document Revised: 10/13/2020 Document Reviewed: 09/22/2020 [employer] Patient Education 2022 [employer]. 09/22/2023 07:17:19 Asymptomatic Bacteriuria Asymptomatic Bacteriuria Asymptomatic [...] Follow these instructions at home: Medicines Take blpa-btl-hpetoha and prescription medicines only as told by [...] provider. Document Revised: 10/10/2020 Document Reviewed: 10/10/2020 [employer] Patient Education 2022 [employer]. Follow Up Care 09/22/2023 05:26:40 With:Erinn PROCTOR Address: [address] [place] [address]- Business (1) When:09/25/2023 06:28:14 [facility]07-11-2024 NoteED [...] these instructions at home: Medicines ? Take ccxk-yyj-eokbvke and prescription medicines only as told by your health care provider. Do not use any prescription, svhe-cbb-prwtmqj, or herbal medicines for morning sickness without [...] provider. Document Revised: 10/13/2020 Document Reviewed: 09/22/2020 [employer] Patient Education ? 2022 [employer] Urology Asymptomatic Bacteriuria Asymptomatic bacteriuria is [...] You are an o (more content not included)...[facility] 07-18-2023 Hospital Discharge instructions* Discharge Instructions* [...] sent through Care Everywhere. * Tenosynovitis: Wrist (American) [facility] Discharge [facility] Patient Education [...] numbers. This can be done either in American (U.S.) or metric measurements. Note that charts and online BMI calculators are available to help you find your BMI quickly and easily without having to do these calculations yourself. To calculate your BMI in American (U.S.) measurements: 1.Measure your weight in pounds [...] Centers for Disease Control and Prevention: www.cdc.gov [employer] Association: www.heart.org National Heart, Lung, and Blood [place]: www.nhlbi.nih.gov Summary Body mass index (BMI) is a number that is calculated from a person's weight and height. BMI may help estimate how much of a person's weight is composed of fat. BMI can help identify thosewho may be at higher risk for certain medical problems. BMI can be measured using American measurements or metric measurements. BMI charts are used to identify whether you are underweight, normal weight, overweight, or obese. This information is not intended to replace advice given to you by your health care provider. Make sure you discuss any questions you have with your health care provider. Document Revised: 11/21/2019 Document Reviewed: 09/28/2019 [employer] Patient Education 2022 [employer]. 07/07/2022 10:02:02 Tendinitis, Fuqd-dw-Dpuu Tendinitis Tendinitis is irritation and swelling (inflammation) [...] only as told by your doctor. Take jajy-sat-ofsgcgk and prescription medicines only as told by [...] provider. Document Revised: 11/05/2021 Document Reviewed: 11/05/2021 [employer] Patient Education 2022 [employer]. Follow Up Care 07/07/2022 09:19:19 With:NONE, XXXX Address: [phone] When: Unknown [facility] 05-04-2022 Evaluation + Plan note Diagnostic Tests Pending * Chlamydia/Gonococcus, KESHIA [facility]/21 [facility]* Diagnosis De Quervain's tenosynovitis, left- Primary Radial styloid tenosynovitis documented in this encounter [facility] noteNo assessment information available [facility] Work Phone: Evaluation note* Diagnosis Second trimester state, incidental 20 weeks gestation of Partial placenta previa Placenta previa without hemorrhage, unspecified as to episode of care [facility] Partial placenta previa- Primary Placenta previa without hemorrhage, unspecified as to episode of care [facility] Diagnosis Low-lying placenta- Primary Hemorrhage from placenta previa, unspecified as to episode of care Personal history of cardiac murmur Personal history of other diseases of circulatory system [facility] Diagnosis Second trimester state, incidental 24 weeks gestation of Diabetes mellitus screening Screening for diabetes mellitus [facility] Diagnosis Third trimester state, incidental 28 weeks gestation of documented [facility]* Diagnosis size inconsistent with dates- Primary Third trimester state, incidental 30 weeks gestation of Herpes simplex Herpes simplex without mention of complication [facility]* Diagnosis Well woman exam with routine gynecological exam Routine gynecological examination Second trimester state, incidental Exposure to STD Screening, , for anatomic survey Encounter for anatomic survey Need for maternal serum alpha-protein (MSAFP) screening documented [facility] Diagnosis 33 weeks gestation of Third trimester state, incidental documented [facility]* Diagnosis Third trimester state, incidental 35 weeks gestation of Mood disorder (CMS/HCC) Unspecified episodic mood disorder documented in this encounter [facility] HealthcareHistory of [...] behalf of: ALICIA Knutson [facility] Narrative No data available for this section [facility] No data available for this section [facility]ructions[facility] on filedocumented in this encounter [facility] System[facility]ructionsNot on filedocumented in this encounter [facility] SystemInstructionsNot on filedocumented in this encounter [facility] No data available for this section [facility] Reason for referral (narrative) Referred by: Bassam WRIGHT, Chris Jin [facility] Summary Purpose Family [...] and content) DATE CREATED AUTHOR 08/12/2021 [facility] DATE CREATED AUTHOR AUTHOR'S ORGANIZ ATION 07/18/2023 [facility] DATE CREATED AUTHOR AUTHOR'S ORGANIZ ATION 09/28/2023 [facility] DATE CREATED AUTHOR AUTHOR'S ORGANIZ ATION 09/29/2023 [facility] DATE CREATED AUTHOR AUTHOR'S ORGANIZ ATION 02/05/2024 [facility] DATE CREATED AUTHOR AUTHOR'S ORGANIZ ATION 03/30/2024 [facility] EPIC Reason for Visit (unrecogniz ed section and content) Reason Comments Wrist Injury Patient arrived to E with complaints of left wrist injury. Patient states she slipped and went to grab a hold of something and injured her wrist approximately 1 hour [employer]. 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 had issues with [...] Care Teams (unrecognized sec tion and content) [employer]itness [employer] Manager Relationship Specialty Start Date End Date Unallocated, Robert Ram MD [address] [place] [address] PCP - General Family Medicine 09/26/23 Team [...] BE BASED ON THE PRIMARY CLINICAL RECORDS. [employer] provides no warranty or guarantee of the accuracy or completeness of information in this document.
== END 2024-04-03 14:37 | disposition home or self-care (01) ==
LOC: LAB 14:36
PROVIDERS: Visit Provider Obstetrics & Gynecology
DX: Z34.93 Encounter for supervision of normal pregnancy, unspecified, third trimester (principal)
CPT/HCPCS: 36415; 87081

== ENCOUNTER 2024-04-23 05:07 | Inpatient (IN) | payer BC, SELFPAY ==
[2024-04-23] VITALS (56 sets, daily range): BP systolic 103–157; BP diastolic 58–118; PULSE 65–141; TEMP 36.3–37.2
--- OUTSIDE RECORDS SUMMARY | 2024-04-23 05:11 | XMS_ITS | CCD ---
Author Organization [facility] Care Team Providers Care Fence Laborer Name Role Phone NONE, XXXX Primary Care Physician Unavailab thee PROCTOR, DR PLASENCIA Attending Unavailable HITESH, DR PLASENCIA Consulting Unavailable HITESH, DR PLASENCIA Admitting Unavailable ZIEBER, DR MACARENA Kim Consulting Unavailable Unavailable Primary Care Provider UnavailELVA Caldera Attending Unavailable DO Rodrigo Berg SMelina Attending Unavailable Love Palmer Attending Unavailable Love Palmer Admitting Unavailable DO Rodrigo Berg Attending Unavailable Unallocated Robert CORMIER Provider Primary Care Provi que Unavailable Primary Care Provider UnavailBAKARI Domínguez Referring Unavailable STEFFANIE YORK Attending Unavailable STEFFANIE YORK Referring Unavailable Unallocated Robert CORMIER Provider Primary Care Provi que BAKARI PROCTOR Attending Unavailable SUZI, VALENTINA Attending Unavailable SUZI, VALENTINA Referring Unavailable HITESHBAKARI BUSTOS Attending Unavailable HITESH, BAKARI Attending Unavailable HITESH, BAKARI Attending Unavailable HITESH, BAKARI Attending Unavailable HITESH, BAKARI Attending Unavailable SUZI, VALENTINA Attending Unavailable HITESH, BAKARI Attending Unavailable SUZI, VALENTINA Attending Unavailable SUZI, VALENTINA Attending Unavailable HITESH, BAKARI Attending Unavailable Medications Current Medications Medication Drug Class(es) Dates Sig (Normalized) Sig (Original) cephalexin 500 mg oral capsule (1 source) Cephalosporin Antibacterial Start: 09-22-2023 End: 09-27-2023 take 1 capsule by mouth every twelve hours Keflex 500 mg Cap 500 mg = 1 cap(s), Oral, q12hr, X 5 day(s), # 10 cap(s), Refills(s) 0, Pharmacy: [facility]/pharmacy #[id number], 160, cm, 07/11/24 5:34:00 EDT, Height/Length Dosing, 72.4, kg, 09/22/23 5:34:00 EDT, Weight Dosing Start Date: 09/22/23 Stop Date: 09/27/23 Status: Ordered citalopram 20 mg oral tablet (4 sources) Serotonin Reuptake Inhibitor Start: 03-12-2019 take 1 tablet by mouth once daily citalopram 20 mg Tab TAKE 1 TABLET BY MOUTH EVERY DAY Start Date: 03/12/19 Status: Ordered 21 day ethinyl estradiol 0.333189 mg/hr / etonogestrel 0.005 mg/hr vaginal system [...] needed for nausea or vomiting. Active Pnv #[id number] Acid-Omega3 (1 source) Start: 12-08-2023 Pnv #87-[id number] Acid-Omega3 Active CAP PO December 08, 2023 12:00am predniSONE 20 mg oral tablet (1 source) Start: 07-07-2022 End: 07-12-2022 take 2 tablets by mouth once daily predniSONE 20 mg Tab 40 mg = 2 tab(s), Oral, Daily, X 5 day(s), # 10 tab(s), Refills(s) 0, Pharmacy: [facility]/pharmacy #[id number], 160, cm, 07/07/22 9:38:00 [...] nausea/vomiting, # 12 tab(s), Refills(s) 0, Pharmacy: [facility]/pharmacy #[id number], 160, cm, 09/22/23 5:34:00 EDT, [...] venlafaxine 37.5 mg extended release oral capsule (12 sources) Serotonin and Norepinephrine Reuptake Inhibitor Start: [...] size-date discrepancy, unspecified trimester] 02-23-2024 Episodic Other complications of (2 sources) Excessive growth affecting management of mother; Translations: [Maternal care for excessive growth, third trimester, not applicable or unspecified] 04-11-2024 Episodic Other connective tissue disease (1 source) [...] 07-07-2022 Chronic Other and delivery including normal (20 sources) Second trimester ; Translations: [Encounter for [...] [35 weeks gestation of ] 03-27-2024 Episodic Residual codes; unclassified (2 sources) Gestation period, 36 weeks; Translations: [36 weeks gestation of ] 04-03-2024 Episodic Residual codes; unclassified (2 sources) Gestation period, 37 weeks; Translations: [37 weeks gestation of ] 04-11-2024 Episodic Residual codes; unclassified (2 sources) Gestation period, 39 weeks; Translations: [39 weeks gestation of ] 04-19-2024 Episodic Unclassified (20 sources) OB Reminders Onset: [...] Test Name Value Interpretation Reference Range Facility US OB FOLLOW UP TRANSABDOMIN AL APPROACHon 04-16-2024 US OB FOLLOW UP TRANSABDOMINAL APPROACH TITLE OF EXAM: OB Ultrasound: REASON FOR EXAM: LGA COMPARISON: None TECHNIQUE: Grayscale and M-mode Doppler imaging is performed. FINDINGS: heart rate: 161 bpm ZANDRA: 9.1 cm (7.3-23.5) BPD: 9.0 cm HC: 34.6 cm AC: 33.7 cm FL: 7.3 cm GA for sonogram: 37.7 wk (35.4-40.0) [place] MIKE: 04/28/2024 Weight Estimate: Weight: 3287 gm / 7 lbs, 3 oz (9154-4290 gm) [place] Normal: 3293 gm (2420-7668 gm) [place] Wt%: 49% for 38.3 wks Limited for: Growth Presentation: Cephalic Lie: Longitudinal Amniotic Fluid: 10.4 cm Between 5th and 95 percentile. Largest Fluid Pocket: 3.7 cm Heart Rate: 161 bpm Somatic motion: Yes IMPRESSION: Single live intrauterine gestation in cephalic position estimated at 37.7 weeks. This is concordant with the provided clinical dates. Dictated and transcribed 04/17/24/dpd This report has been electronically signed and approved by the interpreting radiologist. Normal Not Available Comment on above: Order Comment: US OB SCAN FOR GROWTH Estimated Date of Delivery: 04/28/24 Gestational Age as of 04/11/2024: 37w4d Urinalysis macro (dipstick) panel (U)on 04-11-2024 Bilirubin, UA Negative Negative - 4(70) +++ mg/dL [facility] Blood, UA Negative Negative - 50 Raul/mcL [facility] Clarity, UA Clear [facility] Color, UA Yellow [facility] Glucose, UA Negative Negative - 1999(110) ++++ mg/dL [facility] Interpretation and review of laboratory results Normal [facility] Ketones, UA Negative Negative - 160(16) ++++ mg/dL [facility] Leukocytes, UA Negative Negative - 500+++ Anitra/mcL [facility] Nitrite, UA Negative Negative - Positive [facility] pH, UA 6 5 - 9 [facility] Protein, UA Negative Negative - 2000(20) ++++ mg/dL [facility] Spec Grav, UA 1.025 1 - 1.03 [facility] Urobilinogen, UA 0.2 0.2 - 12 mg/dL [facility] ALL MISCELLANEOUS TESTon MISCELLANEOUS TEST COMMENT . [facility] Comment on above: Test Ordered: [id number] Strep Gp B Culture+Rflx Strep Gp B Culture+Rflx Negative CB Reference Range: Negative Centers for Disease Control and Prevention (CDC) and [place] [employer]st[employer] Gynecologists (ACOG) guidelines for prevention of group B streptococcal (GBS) disease specify co-collection of a vaginal and rectal swab specimen to maximize sensitivity of GBS detection. Per the CDC and ACOG, swabbing both the lower vagina and rectum substantially increases the yield of detection compared with sampling the vagina alone. Penicillin G, ampicillin, or cefazolin are indicated for intrapartum prophylaxis of GBS colonization. Reflex susceptibility testing should be performed prior to use of clindamycin only on GBS isolates from penicillin- allergic women who are considered a high risk for anaphylaxis. Treatment with vancomycin without additional testing is warranted if resistance to clindamycin is noted. Performed at: - [facility] [id number] Makeup Artist: Quintin Rosen PhD, Phone: [phone] GROUP B STREP [id number] Group B Streptococcus Colonization Detection Culture With Re [facility] Urinalysis macro (dipstick) panel (U)on 04-03-2024 Bilirubin, UA Negative Negative - 4(70) +++ mg/dL [facility] Blood, UA Negative Negative - 50 Raul/mcL [facility] Clarity, UA Clear [facility] Color, UA Yellow [facility] Glucose, UA Negative Negative - 1999(110) ++++ mg/dL [facility] Interpretation and review of laboratory results Abnormal [facility] Ketones, UA Positive Negative - 160(16) ++++ mg/dL [facility] Leukocytes, UA Negative Negative - 500+++ Anitra/mcL [facility] Nitrite, UA Negative Negative - Positive [facility] pH, UA 5.5 5 - 9 [facility] Protein, UA Trace Negative - 1999(20) ++++ mg/dL [facility] Spec Grav, UA 1.03 1 - 1.03 [facility] Urobilinogen, UA 0.2 0.2 - 12 mg/dL [facility] Urinalysis macro (dipstick) panel (U)on 03-27-2024 Bilirubin, UA Negative Negative - 4(70) +++ mg/dL [facility] Blood, UA Negative Negative - 50 Raul/mcL [facility] Clarity, UA Clear [facility] Color, UA Yellow [facility] Glucose, UA Negative Negative - 1999(110) ++++ mg/dL [facility] Interpretation and review of laboratory results Abnormal [facility] Ketones, UA Positive Negative - 160(16) ++++ mg/dL [facility] Leukocytes, UA Negative Negative - 500+++ Anitra/mcL [facility] Nitrite, UA Negative Negative - Positive [facility] pH, UA 5.5 5 - 9 [facility] Protein, UA Negative Negative - 1999(20) ++++ mg/dL [facility] Spec Grav, UA 1.03 1 - 1.03 [facility] Urobilinogen, UA 0.2 0.2 - 12 mg/dL [facility] TBH UA (CLEAN/CATCH) LIABILITY CLAIMS REPRESENTATIVE/JENNY RO IF IND.on 03-23-2024 BILIRUBIN URINE Negative NEGATIVE [facility] BLOOD URINE Negative NEGATIVE [facility] Clarity (U) SL CLOUDY CLEAR [facility] Color (U) LT. YELLOW YELLOW [facility] GLUCOSE URINE UA Negative NEGATIVE mg/dL [facility] Ketones Ql (U) Negative NEGATIVE mg/dL [facility] Leukocyte esterase Test strip Ql (U) Negative NEGATIVE [facility] NITRITE URINE Negative NEGATIVE [facility] pH (U) 6.0 [pH] 5.0 - 9.0 [facility] PROTEIN URINE Negative NEG/TRACE mg/dL [facility] SPECIFIC GRAVITY URINE 1.025 1.005 - 1.025 [facility] URINE MICROSCOPIC INDICATED NO [facility] UROBILINOGEN URINE 0.2 EU/dL 0.2 - 1.0 EU/dL [facility] Urinalysis macro (dipstick) panel (U)on 03-12-2024 Bilirubin, UA Negative Negative - 4(70) +++ mg/dL [facility] Blood, UA Not detected Negative - 50 Raul/mcL [facility] Clarity, UA Clear [facility] Color, UA Yellow [facility] Glucose, UA Negative Negative - 1999(110) ++++ mg/dL [facility] Interpretation and review of laboratory results Abnormal [facility] Ketones, UA Negative Negative - 160(16) ++++ mg/dL [facility] Leukocytes, UA Negative Negative - 500+++ Anitra/mcL [facility] Nitrite, UA Negative Negative - Positive [facility] pH, UA 6 5 - 9 [facility] Protein, UA Trace Negative - 1999(20) ++++ mg/dL [facility] Spec Grav, UA 1.03 1 - 1.03 [facility] Urobilinogen, UA 0.2 0.2 - 12 mg/dL [facility] Urinalysis macro (dipstick) panel (U)on 02-08-2024 Bilirubin, UA Negative Negative - 4(70) +++ mg/dL [facility] Blood, UA Negative Negative - 50 Raul/mcL [facility] Clarity, UA Clear [facility] Color, UA Yellow [facility] Glucose, UA Negative Negative - 1999(110) ++++ mg/dL [facility] Interpretation and review of laboratory results Abnormal [facility] Ketones, UA Positive Negative - 160(16) ++++ mg/dL [facility] Comment on above: trace Leukocytes, UA Negative Negative - 500+++ Anitra/mcL [facility] Nitrite, UA Negative Negative - Positive [facility] pH, UA 6 5 - 9 [facility] Protein, UA Negative Negative - 1999(20) ++++ mg/dL [facility] Spec Grav, UA 1.03 1 - 1.03 [facility] Urobilinogen, UA 0.2 0.2 - 12 mg/dL [facility] GLUCOSE TOLERANCE 3 HOURon 04-02-2023 GLUCOSE TOLERANCE 3 HOUR mg/dL [facility] Comment on above: GLU FAST 88 (<95) Co l: 02/01/24 1310 GLU 1HR 177 (<180) Col: 02/01/24 1412 GLU 2HR 131 (<155) Col: 02/01/24 1512 GLU 3HR 106 (<140) Col: 02/01/24 1612 [facility] ALL CBC WITH AUTO DIFFon BASOPHILS ABSOLUTE AUTO 0 N [facility] Basophils/100 WBC (Bld) 0.2 % 0.2 - 2.0 % [facility] Eosinophils/100 WBC (Bld) 0.8 % Low 0.9 - 7.0 % [facility] Erythrocyte distribution width (RBC) [Ratio] 12.4 % 11.0 - 15.0 % [facility] Hematocrit (Bld) [Volume fraction] 34.2 % Low 36.0 - 48.0 % [facility] Hemoglobin (Bld) [Mass/Vol] 11.7 g/dL Low 12.0 - 16.0 g/dL [facility] IMMATURE GRANULOCYTES ABS AUTO 0.2 High [facility] Immature granulocytes/100 WBC (Bld) 1.5 % High 0.0 - 0.5 % [facility] LYMPHOCYTES ABSOLUTE AUTO 2.7 [facility] Lymphocytes/100 WBC (Bld) 20.2 % Low 20 .5 - 60.0 % [facility] MCH (RBC) [Entitic mass] 31.4 pg 26. 7 - 34.0 pg [facility] MCHC (RBC) [Mass/Vol] 34.2 g/dL 29.9 - 35.2 g/dL [facility] MCV (RBC) [Entitic vol] 91.7 fL 81.0 - 99.0 fL [facility] MONOCYTES ABSOLUTE AUTO 0.8 N [facility] Monocytes/100 WBC (Bld) 6.2 % 1.7 - 12.0 % [facility] NEUTROPHILS ABSOLUTE AUTO 9.4 High [facility] Neutrophils/100 WBC (Bld) 71.1 % 43 .0 - 75.0 % [facility] Platelet mean volume (Bld) [Entitic vol] 9 fL Low 9.5 - 13.5 fL [facility] TB EO # 0.1 [facility] TB PLT 320 [facility] RBC 3.73 Low [facility] WBC 13.2 High [facility] GLUCOSE 1 HOURon 01-28-2024 Glucose [Mass/Vol] 140 mg/dL High NINF - 13 0 mg/dL [facility] No Panel Informationon 01-27 Interpretation and review of laboratory results Abnormal [facility] Urinalysis macro (dipstick) panel (U)on 01-11-2024 Bilirubin, UA Negative Negative - 4(70) +++ mg/dL [facility] Blood, UA Negative Negative - 50 Raul/mcL [facility] Clarity, UA Clear [facility] Color, UA Yellow [facility] Glucose, UA Negative Negative - 1999(110) ++++ mg/dL [facility] Interpretation and review of laboratory results Normal [facility] Ketones, UA Negative Negative - 160(16) ++++ mg/dL [facility] Leukocytes, UA Negative Negative - 500+++ Anitra/mcL [facility] Nitrite, UA Negative Negative - Positive [facility] pH, UA 55 5 - 9 [facility] Protein, UA Negative Negative - 1999(20) ++++ mg/dL [facility] Spec Grav, UA 1.02 1 - 1.03 [facility] Urobilinogen, UA 1.0 0.2 - 12 mg/dL [facility] Urinalysis macro (dipstick) panel (U)on 12-14-2023 Bilirubin, UA Negative Negative - 4(70) +++ mg/dL [facility] Blood, UA Negative Negative - 50 Raul/mcL [facility] Clarity, UA Clear [facility] Color, UA Yellow [facility] Glucose, UA Negative Negative - 1999(110) ++++ mg/dL [facility] Interpretation and review of laboratory results Normal [facility] Ketones, UA Negative Negative - 160(16) ++++ mg/dL [facility] Leukocytes, UA Negative Negative - 500+++ Anitra/mcL [facility] Nitrite, UA Negative Negative - Positive [facility] pH, UA 5.5 5 - 9 [facility] Protein, UA Negative Negative - 1999(20) ++++ mg/dL [facility] Spec Grav, UA 1.025 1 - 1.03 [facility] Urobilinogen, UA 0.2 0.2 - 12 mg/dL [facility] No Panel InformationOrdered By: Christopher Ma on 12-08-2023 Quick Strep (POC) [facility] IGP,APTIMA HPV,AGE GDLNon AGE GDLN ACOG TESTING Note . [facility] Comment on above: TESTS RESULT FLAG UN ITS REF RANGE LAB Clinician Provided Cytology Information Source.............Cervix No. of containers..01 ThinPrep Vial Age Stewart ROSARIO Radha... -11 04 FLAG LEGEND: L-Low Normal,H-High Normal,LL-Alert Low,HH-Alert High <-Panic Low,>-Panic High,A-Abnormal,AA-Critical Abnormal Performed at: 01 =G [facility] [address] [address] Luz Marina Swann MD, IGP, RFX APTIMA HPV ASCU Note . [facility] Comment on above: TESTS RESULT FLAG UN ITS REF RANGE LAB DIAGNOSIS: 02 NEGATIVE FOR INTRAEPITHELIAL LESION OR MALIGNANCY. Specimen adequacy: 02 Satisfactory for evaluation. No endocervical component is identified. Performed by: Quentin Paige Gas Welder Apprentice ([facility]) . 02 Note: Note 02 The [...] <-Panic Low,>-Panic High,A-Abnormal,AA-Critical Abnormal Performed at: [address] [address] Luz Marina Swann MD, Performed at: =[address] [id number] Makeup Artist: Luz Marina Swann MD, Phone: [phone] Performed at: [address] [id number] Makeup Artist: Luz Marina Swann MD, Phone: [phone] SPATULA-ALONE CERVIX [facility] URETHRITIS/DISCHARGE PLUS VA GINITIS (HTRX)on 11-19-2023 ATOPOBIUM VAGINAE 30.582 Abnormal [facility] ATOPOBIUM VAGINAE Detected Abnormal [facility] BVAB 2,3 (BACTERIAL VAGINOSIS ASSOCIATED BACTERIA 2, 3); MOBILUNCUS SPP 22.805 Abnormal [facility] BVAB 2,3 (BACTERIAL VAGINOSIS ASSOCIATED BACTERIA 2, 3); MOBILUNCUS SPP Detected Abnormal [facility] KEVIN ALBICANS, PARAPSILOSIS, TROPICALIS 0.000 [facility] KEVIN ALBICANS, PARAPSILOSIS, TROPICALIS Not detected [facility] KEVIN GLABRATA 0.000 [facility] KEVIN GLABRATA Not detected [facility] KEVIN KRUSEI 0.000 [facility] KEVIN KRUSEI Not detected [facility] CHLAMYDIA TRACHOMATIS 0.000 [facility] CHLAMYDIA TRACHOMATIS Not detected [facility] ERMB, C; MEFA 25.492 Abnormal [facility] ERMB, C; MEFA Detected Abnormal [facility] GARDNERELLA VAGINALIS 27.[address] [facility] GARDNERELLA VAGINALIS Detected Abnormal [facility] Interpretation and review of laboratory results Abnormal [facility] MEGASPHAERA (TYPES 1, 2) 0.000 [facility] MEGASPHAERA (TYPES 1, 2) Not detected [facility] MYCOPLASMA GENITALIUM 0.000 [facility] MYCOPLASMA GENITALIUM Not detected N [facility] NEISSERIA GONORRHOEAE 0.000 [facility] NEISSERIA GONORRHOEAE Not detected N [facility] TET B, TET M 23.652 Abnormal [facility] TET B, TET M Detected Abnormal [facility] TRICHOMONAS VAGINALIS 0.000 [facility] TRICHOMONAS VAGINALIS Not detected N [facility] Urinalysis macro (dipstick) panel (U)on 11-16-2023 Bilirubin, UA Positive Negative - 4(70) +++ mg/dL [facility] Comment on above: small Blood, UA Negative Negative - 50 Raul/mcL [facility] Clarity, UA Clear [facility] Color, UA Yellow [facility] Glucose, UA Negative Negative - 2000(110) ++++ mg/dL [facility] Interpretation and review of laboratory results Normal [facility] Ketones, UA Positive Negative - 160(16) ++++ mg/dL [facility] Comment on above: trace Leukocytes, UA Negative Negative - 500+++ Anitra/mcL [facility] Nitrite, UA Negative Negative - Positive [facility] pH, UA 5.5 5 - 9 [facility] Protein, UA Negative Negative - 2000(20) ++++ mg/dL [facility] Spec Grav, UA 1.030 1 - 1.03 [facility] Urobilinogen, UA 1.0 0.2 - 12 mg/dL [facility] C Urineon 09-24-2023 Bacteria identified Cx [facility] (U) Microbiology PROCEDURE: Urine Culture [R1] SOURCE: U CleanCatch BODY SITE: COLLECTED DATE/TIME: 09/22/2023 05:47 EDT RECEIVED DATE/TIME: 09/22/2023 08:16 EDT START DATE/TIME: 09/22/2023 08:16 EDT FREE TEXT SOURCE: Rodrigo Berg DO, DO, Noah S. FINAL REPORTS Final Report [] Verified Date/Time: 09/24/2023 09:48 EDT <10,000 cfu/ml Mixed skin contaminants Performing Locations R1: This test was performed at: [facility], [address] [place] [address], [id number] , [place], Normal [facility] Comment on above: Performed By: #### 2 [id number] #### [facility] [address] [place] [address] BMPon 09-22-2023 Anion gap [Moles/Vol] 13 mmol/L Normal 6-16 [facility] Comment on above: Performed By: #### 2 [id number] #### [facility] [address] [place] [address] Calcium [Mass/Vol] 8.9 mg/dL Normal 8.9-11.1 [facility] Comment on above: Performed By: #### 2 [id number] #### [facility] [address] [place] [address] Chloride [Moles/Vol] 103 mmol/L Normal 101-111 [facility] Comment on above: Performed By: #### 2 [id number] #### [facility] [address] [place] [address] CO2 [Moles/Vol] 21 mmol/L Normal 21-31 [facility] Comment on above: Performed By: #### 2 [id number] #### [facility] [address] [place] [address] Creatinine [Mass/Vol] 0.6 mg/dL Normal 0.5-1.3 [facility] Comment on above: Performed By: #### 2 [id number] #### [facility] [address] [place] [address] Glucose [Mass/Vol] 89 mg/dL Normal 55-199 [facility] Comment on above: Performed By: #### 2 [id number] #### [facility] [address] [place] [address] Potassium [Moles/Vol] 3.5 mmol/L Normal 3.5-5.3 [facility] Comment on above: Performed By: #### 2 [id number] #### [facility] [address] [place] [address] Sodium [Moles/Vol] 133 mmol/L Low 135-145 [facility] Comment on above: Performed By: #### 2 [id number] #### [facility] [address] [place] [address] Urea nitrogen [Mass/Vol] 5 mg/dL Normal 5-21 [facility] Comment on above: Performed By: #### 2 [id number] #### [facility] [address] [place] [address] Urea nitrogen/Creatinine [Mass ratio] 8 No Units Low 10-20 [facility] Comment on above: Performed By: #### 2 [id number] #### [facility] [address] [place] [address] CBC w/ Auto Diffon 4 Basophils/100 WBC (Bld) 0.2 % Normal 0.0-2.[address] [facility] Comment on above: Performed By: #### 2 [id number] #### [facility] [address] [place] [address] Basophils/Leukocytes Auto (Bld) [Pure # fraction] 0.0 E9/L Normal 0.0-0.2 [facility] Comment on above: Performed By: #### 2 [id number] #### [facility] [address], [place] [address] Eosinophils (Bld) [#/Vol] 0.1 E9/L Normal 0.0-0.5 [facility] Comment on above: Performed By: #### 2 [id number] #### [facility] [address] [place] [address] Eosinophils/100 WBC (Bld) 0.7 % Normal 0.0-8.0 [facility] Comment on above: Performed By: #### 2 [id number] #### [facility] [address] [place] [address] Erythrocyte distribution width (RBC) [Ratio] 13.1 % Normal 10.9-14.2 [facility] Comment on above: Performed By: #### 2 [id number] #### [facility] [address] [place] [address] Hematocrit (Bld) [Volume fraction] 39.9 % Normal 34.0-46.0 [facility] Comment on above: Performed By: #### 2 [id number] #### [facility] [address] [place] [address] Hemoglobin (Bld) [Mass/Vol] 14.0 g/dL Normal 12.0-16.0 [facility] Comment on above: Performed By: #### 2 [id number] #### [facility] [address] [place] [address] Lymphocytes (Bld) [#/Vol] 1.8 E9/L Normal 1.0-4.0 [facility] Comment on above: Performed By: #### 2 [id number] #### [facility] [address] [place] [address] Lymphocytes/100 WBC (Bld) 18.5 % Normal 14.0-50.0 [facility] Comment on above: Performed By: #### 2 [id number] #### [facility] [address] [place] [address] MCH (RBC) [Entitic mass] 31.9 pg Normal 27.0-34.0 [facility] Comment on above: Performed By: #### 2 [id number] #### [facility] [address] [place] [address] MCHC (RBC) [Mass/Vol] 35.2 g/dL Normal 31.4-36.0 [facility] Comment on above: Performed By: #### 2 [id number] #### [facility] [address] [place] [address] MCV (RBC) [Entitic vol] 90.5 fL Normal 80.0-100.0 [facility] Comment on above: Performed By: #### 2 [id number] #### [facility] [address] [place] [address] Monocytes (Bld) [#/Vol] 0.5 E9/L Normal 0.2-1.[address] [facility] Comment on above: Performed By: #### 2 [id number] #### [facility] [address] [place] [address] Neutrophils (Bld) [#/Vol] 7.3 E9/L Normal 2.0-7.5 [facility] Comment on above: Performed By: #### 2 [id number] #### [facility] [address] [place] [address] Neutrophils/100 WBC (Bld) 75.5 % High 36.0-75.0 [facility] Comment on above: Performed By: #### 2 [id number] #### [facility] [address] [place] [address] Platelet 415.0 E9/L Normal 150.0-500.0 [facility] Comment on above: Performed By: #### 2 [id number] #### [facility] [address] [place] [address] Platelet mean volume (Bld) [Entitic vol] 6.6 fL Normal 6.4-10.8 [facility] Comment on above: Performed By: #### 2 [id number] #### [facility] [address] [place] [address] RBC (Bld) [#/Vol] 4.4 E12/L Normal 4.3-5.9 [facility] Comment on above: Performed By: #### 2 [id number] #### [facility] [address] [place] [address] WBC corrected for nucl RBC Auto (Bld) [#/Vol] 9.7 E9/L Normal 4.0-11.0 [facility] Comment on above: Performed By: #### 2 [id number] #### [facility] [address] [place] [address] CHEMISTRYOrdered By: SYSTEM SYSTEM on 09-22-2023 Albumin [...] 2023 ED Clinical Summary ED Clinical Summary [place] [id number] ED Clinical Summary Person Information Name: SEBASTIAN ALEMAN Sofi/New_Husam Age: 22 Years : 2000 Sex: Female Language: Malian PCP: NONE, XXXX Marital Status: Single Visit [...] 09/22/2023 07:17:18 09/22/2023 07:17:18 09/22/2023 07:17:18 ADDRESS: [address] [place] [id number] PHYS DOC NOTES: MEDICAL INFORMATION: Prescriptions Given: New Medications [id number], [address] [place], [place] [id number], [phone] cephalexin (Keflex 500 mg Cap) 1 Capsules [...] Asymptomatic Bacteriuria Follow up: With: Address: When: Bakari PROCTOR [facility], [address] [place] [address] [place] [address] Amoobi (1MOG In 3 days 09/25/2023 DIAGNOSIS: Asymptomatic bacteriuria during ; Bacteriuria; Nausea and vomiting during Normal [facility] ED Note-Physicianon 09-22-19 ED Note-Physician [...] that she was 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 Shared decision making: As above Code status: N/A Assessment/Plan Asymptomatic bacteriuria during (O99.891: Other specified diseases and conditions complicating ) Bacteriuria (R82.71: Bacteriuria) Nausea and vomiting during (O21.9: Vomiting of , unspecified) Orders: cephalexin, 500 mg = 1 cap(s), Oral, q12hr, X 5 day(s), # 10 cap(s), Refills(s) 0, Pharmacy: [id number], 160, cm, 09/22/23 5:34:00 EDT, Height/Length Dosing, 72.4, kg, 09/22/23 5:34:00 EDT, Weight Dosing Lactated Ringers Injection, 1,000 mL, Soln-IV, IV, Once, Stop date 09/22/23 5:38:00 EDT, STAT, Start date 09/22/23 5:38:00 EDT, mL/hr, Infuse over 61, minute(s) promethazine, 12.5 mg = 1 tab(s), Oral, q8hr, PRN as needed for nausea/vomiting, # 12 tab(s), Refills(s) 0, Pharmacy: [facility]/pharmacy #[id number], 160, cm, 09/22/23 5:34:00 EDT, [...] Cult Rflx Urine Culture Medications Administered Given [id number] [F], 1000 mL, IV Sodium Chloride 0.9% IV Kaylyn 50 mL [F] 50 mL + [id number] [F] 12.5 mg, IV Piggyback Disposition Plan Discharge Prescription List Prescriptions Keflex 500 mg Cap, 500 mg= 1 cap(s), Oral, q12hr promethazine 12.5 mg oral tablet, 12.5 mg= 1 tab(s), Oral, q8hr, PRN Follow-up With When Contact Information Bakari PROCTOR In 3 days 09/25/[address] , [place] [address] Business (1) Additional Instructions: Patient Education Morning Sickness Asymptomatic Bacteriuria Problem List/Past Medical History Ongoing Anxiety History of cold sores Right otitis media Historical Denies Depression Procedure/Surgical History None. Medications Inpatient LR 1000 mL Bolus, 1000 mL, IV, Once promethazine additive 12.5 mg + Sodium Chloride 0.9% IV Kaylyn 50 (more content not included)... Normal [facility] Comment on above: Result Comment: Elec tronically Signed By: Rodrigo Berg DO\.br\Date and Time Signed: 09/22/23 06:44 EDT ED Patient Summaryon ED Patient Summary ED Patient Summary [address] [address] Patient Discharge Instructions Person Information Name: SEBASTIAN ALEMAN Age: 22 Years Arrival Date: 09/22/2023 05:24:18 Discharge Diagnosis: Asymptomatic bacteriuria during ; Bacteriuria; Nausea and vomiting during Primary Care Physician: NONE, XXXX Provider Information Primary Provider: Rodrigo Berg DO Advanced Mingler Operator:None The exam and treatment you received in the Emergency Department were for an urgent problem and are not intended as complete care. It is important that you follow up with a doctor, nurse practitioner, or physician?s dental assistant for ongoing care. If your symptoms become worse or you do not improve as expected and you are unable to reach your usual health care provider, you should return to the Emergency Department. We are available 24 hours a day. SEBASTIAN ALEMAN has been given the following list of patient education materials, prescriptions and follow-up instructions: Follow-up Instructions: With: Address: When: Bakari PROCTOR [facility], [address] [place] [address] [place] [address] Business (1) In 3 days 09/25/2023 In the event that this physician does not participate in your insurance network, please consult with your insurance company to find a nearby participating provider. Patient Education Materials: Morning Sickness; Asymptomatic Bacteriuria A MESSAGE TO ALL PATIENTS REGARDING OPIOIDS PRESCRIPTION OPIOIDS: WHAT YOU NEED TO KNOW Prescription opioids can be used to help relieve gajeaeld-pc-qeaeus pain and are often prescribed following a [...] y (more content not included)... Normal [facility] HEMATOLOGYOrdered By: SYSTEM SYSTEM on [...] Albumin [Mass/Vol] 4.2 g/dL Normal 3.3-5.0 [facility] Comment on above: Performed By: #### 2 [id number] #### [facility] [address] [place] [address] Albumin/Globulin (S) [Mass conc ratio] 1.3 Normal 1.1-2.2 [facility] Comment on above: Performed By: #### 2 [id number] #### [facility] [address] [place] [address] ALP [Catalytic activity/Vol] 68 Int._Unit/L Normal 21-98 [facility] Comment on above: Performed By: #### 2 [id number] #### [facility] [address] [place] [address] ALT No additional P-5'-P [Catalytic activity/Vol] 18 Int._Unit/L Normal 6-46 [facility] Comment on above: Performed By: #### 2 [id number] #### [facility] [address] [place] [address] AST [Catalytic activity/Vol] 17 Int._Unit/L Normal 5-43 [facility] Comment on above: Performed By: #### 2 [id number] #### [facility] [address] [place] [address] Bilirubin [Mass/Vol] 0.5 mg/dL Normal 0.0-1.1 [facility] Comment on above: Performed By: #### 2 [id number] #### [facility] [address] [place] [address] Bilirubin.direct [Mass/Vol] 0.1 mg/dL Normal 0.0-0.4 [facility] Comment on above: Performed By: #### 2 [id number] #### [facility] [address] [place] [address] Bilirubin.indirect [Mass or moles/Vol] 0.4 mg/dL Normal 0.1-0.9 [facility] Comment on above: Performed By: #### 2 [id number] #### [facility] [address] [place] [address] Globulin (S) [Mass/Vol] 3.2 g/dL Normal 1.4-4.[address] [facility] Comment on above: Performed By: #### 2 [id number] #### [facility] [address] [place] [address] Protein [Mass/Vol] 7.4 g/dL Normal 6.0-7.8 [facility] Comment on above: Performed By: #### 2 [id number] #### [facility] [address] [place] [address] Lipase Levelon 09-22-2023 Lipase [Catalytic activity/Vol] 30 U/L Normal 13-58 [facility] Comment on above: Performed By: #### 2 [id number] #### [facility] [address] [place] [address] UA with Cult Rflxon 09-22-19 24 Bacteria Auto Ql (U) 2+ /HPF Abnormal Trace Fish [facility] Comment on above: Performed By: #### 4 [id number] #### [facility] [address] [place] [address] Bilirubin Ql (U) Negative Normal Negative [facility] Comment on above: Performed By: #### 4 [id number] #### [facility] [address] [place] [address] Clarity (U) Ex.Turbid Abnormal Clear [facility] Comment on above: Performed By: #### 4 [id number] #### [facility] [address] [place] [address] Color (U) Yellow Normal Yellow [facility] Comment on above: Result Comment: Micr oscopic readings are only performed on those samples that meet specific criteria set forth by [facility]. Performed By: #### 4 [id number] #### [facility] [address] [place] [address] Epithelial cells.squamous Auto (Urine sed) [#/Area] >10 Invalid Interpretation Code [facility] Comment on above: Performed By: #### 4 [id number] #### [facility] [address] [place] [address] Glucose Ql (U) Negative Normal Negative [facility] Comment on above: Performed By: #### 4 [id number] #### [facility] [address] [place] [address] Hemoglobin Auto test strip (U) [Mass/Vol] Negative Normal Negative [facility] Comment on above: Performed By: #### 4 [id number] #### [facility] [address] [place] [address] Ketones Auto test strip Ql (U) 4+ mg/dL Abnormal Negative [facility] Comment on above: Performed By: #### 4 [id number] #### [facility] [address] [place] [address] Leukocyte esterase Auto test strip Ql (U) 250 Anitra/uL Abnormal Negative [facility] Comment on above: Performed By: #### 4 [id number] #### [facility] [address] [place] [address] Mucus Auto Ql (U) 3+ Abnormal Negative [facility] Comment on above: Performed By: #### 4 [id number] #### [facility] [address] [place] [address] Nitrite Auto test strip Ql (U) Negative Normal Negative [facility] Comment on above: Performed By: #### 4 [id number] #### [facility] [address] [place] [address] pH (U) 6.0 [pH] Invalid Interpretation Code 5.0-9.0 [facility] Comment on above: Performed By: #### 4 [id number] #### [facility] [address] [place] [address] Protein Ql (U) Trace Abnormal Negative [facility] Comment on above: Performed By: #### 4 [id number] #### [facility] [address] [place] [address] Specific gravity (U) [Rel density] 1.023 Invalid Interpretation Code 1.005-1.030 [facility] Comment on above: Performed By: #### 4 [id number] #### [facility] [address] [place] [address] Urobilinogen (U) [Mass/Vol] Negative Normal Negative [facility] Comment on above: Performed By: #### 4 [id number] #### [facility] [address] [place] [address] WBC Auto (Urine sed) [#/Area] 31-75 Abnormal 0-5 [facility] Comment on above: Performed By: #### 4 [id number] #### [facility] [address] [place] [address] Type of Urine collection method Clean Catch Normal [facility] Comment on above: Performed By: #### 4 [id number] #### [facility] [address] [place] [address] URINALYSISOrdered By: Jennifer Santacruz on 09-22-2023 Bacteria Auto Ql (U) 2+ /HPF Invalid Interpretation Code Trace/HPF [facility] Auto SS Bilirubin Ql (U) Negative Normal Negativemg/ d L [facility] Auto SS Clarity (U) Ex.Turbid *ABN* (09/22/23 5:47 AM) Invalid Interpretation Code Clear [facility] Auto SS Color (U) Yellow 1 (09/22/23 5:47 AM) Normal Yellow [facility] Auto SS Comment on above: Interpretive Data: M icroscopic readings are only performed on those samples that meet specific criteria set forth by [facility]. Epithelial cells.squamous Auto (Urine sed) [#/Area] >10 graded/HPF Invalid Interpretation Code [facility] UA Auto SS Glucose Ql (U) Negative Normal Negativemg/d L [facility] UA Auto SS Hemoglobin Auto test strip (U) [Mass/Vol] Negative (09/22/23 5:47 AM) Normal Negative [facility] Auto SS Ketones Auto test strip [...] strip Ql (U) Negative Normal Negativemg/d L [facility]A Auto SS pH (U) 6.0 *NA* (09/22/23 5:47 AM) Invalid Interpretation Code 5.0 - 9.0 [facility]A Auto SS Protein Ql (U) Trace mg/dL Invalid Interpretation Code Negativemg/d L [facility] UA Auto SS Specific gravity (U) [Rel density] 1.023 *NA* (09/22/23 5:47 AM) Invalid Interpretation Code 1.005 - 1.030 [facility] UA Auto SS Urobilinogen (U) [Mass/Vol] Negative Normal Negativemg/d L [facility] UA Auto SS WBC Auto (Urine sed) [#/Area] 31-75 *ABN* (09/22/23 5:47 AM) Invalid Interpretation Code 0-5 [facility] UA Auto SS URINALYSISOrdered By: Rodrigo leung on 09-22-2023 UA Spec Desc Clean Catch (09/22/23 5:47 AM) Normal [facility] UA Auto SS Work Phone: eGFRon 09-22-2023 eGFR 128 mL/min/1.73 m2 Normal >=59 [facility] Comment on above: Order Comment: Order added by Discern Expert. Performed By: #### 1 [id number] #### [facility] [address] [place] [address] PAP [id number] 07-19-2023 Cytology report Cyto stain Doc (Cvx/Vag) Note Invalid Interpretation Code [facility] Comment on above: Result Comment: TEST S RESULT FLAG UNITS REF RANGE LAB Clinician Provided Cytology Information Source.............Endocervix No. of containers..01 ThinPrep Vial DIAGNOSIS: 01 NEGATIVE FOR INTRAEPITHELIAL LESION OR MALIGNANCY. Specimen adequacy: 01 Satisfactory for evaluation. Endocervical and/or squamous metaplastic cells (endocervical component) are present. Performed by: 01 Puneet Elise, Gas Welder Apprentice ([facility]) . 01 Note: Note 01 The Pap smear is a screening test designed to aid in the detection of premalignant and malignant conditions of the uterine cervix. It is not a diagnostic procedure and should not be used as the sole means of detecting cervical cancer. Both false-positive and false-negative reports do occur. Test Methodology: Note 01 The Case Rover(R) Cable Tv Installer was unable to read this specimen. Therefore a manual review was performed. . 01 The HPV DNA reflex criteria were not met with this specimen result therefore, no HPV testing was performed. FLAG LEGEND: L-Low Normal,H-High Normal,LL-Alert Low,HH-Alert High <-Panic Low,>-Panic High,A-Abnormal,AA-Critical Abnormal Performed at: 01 [facility] [address] [facility] [place] [address] Luz Marina Swann MD, Performed at: [facility] [address] [facility], [place] [id number] MD Shree Raza Performed By: #### 3 [id number] #### [facility] [address] [place] [address] PAP [id number] 07-16-2023 Collection Technique BRUSH-SPATULA Normal F [facility] Comment on above: Performed By: #### 3 [id number] #### [facility] [address] [place] [address] Gynecological Body Site ENDOCERVIX Normal F [facility] Comment on above: Performed By: #### 3 [id number] #### [facility] [address] [place] [address] Physician Orderon 07-14-2023 Physician Order [id number] Normal [facility] DHEA SERUMon 08-11-2021 Dehydroepiandrosterone (DHEA) 339 ng/dL Normal [facility] Comment on above: Result Comment: Age [...] 68 Performed By: #### Justin SERRANO. #### [facility] [address] [place] [address] [address] Austen Hernadez DHEA-SULFATEon 08-01-2021 DHEA-Sulfate 247.0 ug/dL Normal 110.0-431.7 [facility] Comment on above: Performed By: #### Justin LEBLANC #### [facility] [address] [place] [address] [address] Austen Hernadez FSHon 08-01-2021 FSH 1.6 mIU/mL Normal [facility] Comment on above: Result Comment: Adul t Female: Follicular phase 3.5 - 12.5 Ovulation phase 4.7 - 21.5 Luteal phase 1.7 - 7.7 Postmenopausal 25.8 - 134.8 Performed By: #### L [facility] #### [facility] [address] [address] [address] Austen Hernadez LUTEINIZING HORMONE (LH)on 0 08-01-2021 LH 2.6 mIU/mL Normal [facility] Comment on above: Result Comment: Adul t Female: Follicular phase 2.4 - 12.6 Ovulation phase 14.0 - 95.6 Luteal phase 1.0 - 11.4 Postmenopausal 7.7 - 58.5 Performed By: #### L BCL #### [facility] [address] [place] [address] Dr. Austen Hernadez CBC AUTO DIFFon 07-30-2021 BASO # 0.0 103/ul Normal 0.0-0.1 [facility] Comment on above: Performed By: #### C BC #### [facility] [address] [place] [address] Dr. Austen Hernadez Basophils/100 WBC (Bld) 0.2 % Normal 0.2-2.0 [facility] Comment on above: Performed By: #### C BC #### [facility] [address] [place] [address] Dr. Austen Hernadez EO # 0.1 103/ul Normal 0.0-0.7 [facility] Comment on above: Performed By: #### C BC #### [facility] [address] [place] [address] Dr. Austen Hernadez Eosinophils/100 WBC (Bld) 1.2 % Normal 0.9-7.0 [facility] Comment on above: Performed By: #### C BC #### [facility] [address] [place] [address] Dr. Austen Hernadez Erythrocyte distribution width (RBC) [Ratio] 12.1 % Normal 11.0-15.0 [facility] Comment on above: Performed By: #### C BC #### [facility] [address] [place] [address] Dr. Austen Hernadez Hematocrit (Bld) [Volume fraction] 40.2 % Normal 36.0-48.0 [facility] Comment on above: Performed By: #### C BC #### [facility] [address] [place] [address] Dr. Austen Hernadez Hemoglobin (Bld) [Mass/Vol] 13.3 g/dL Normal 12.0-16.0 [facility] Comment on above: Performed By: #### C BC #### [facility] [address] [address] [address] Austen Hernadez IG # 0.04 10e3/ul Critically high 0.00-0.03 [facility] Comment on above: Performed By: #### C BC #### [facility] [address] [place] [address] [address] Austen Hernadez IG % 0.5 % Normal 0.0-0.5 [facility] Comment on above: Performed By: #### C BC #### [facility] [address] [place] [address] Dr. Austen Hernadez LYMPH # 1.7 103/ul Normal 1.2-3.8 [facility] Comment on above: Performed By: #### C BC #### [facility] [address] [place] [address] Dr. Austen Hernadez Lymphocytes/100 WBC (Bld) 20.1 % Critically low 20.5-6 0.0 [facility] Comment on above: Performed By: #### C BC #### [facility] [address] [place] [address] Dr. Austen Hernadez MANUAL DIFF REQ NO Normal [facility] Comment on above: Performed By: #### C BC #### [facility] [address] [place] [address] Dr. Austen Hernadez MCH (RBC) [Entitic mass] 30.0 pg Normal 26.7-34.0 [facility] Comment on above: Performed By: #### C BC #### [facility] [address] [place] [address] Dr. Austen Hernadez MCHC (RBC) [Mass/Vol] 33.1 g/dL Normal 29.9-35.2 [facility] Comment on above: Performed By: #### C BC #### [facility] [address] [place] [address] Dr. Austen Hernadez MCV (RBC) [Entitic vol] 90.5 fL Normal 81.0-99.0 [facility] Comment on above: Performed By: #### C BC #### [facility] [address] [place] [address] Dr. Austen Hernadez MONO # 0.5 103/ul Normal 0.3-0.8 [facility] Comment on above: Performed By: #### C BC #### [facility] [address] [place] [address] Dr. Austen Hernadez Monocytes/100 WBC (Bld) 5.8 % Normal 1.7-12.0 [facility] Comment on above: Performed By: #### C BC #### [facility] [address] [place] [address] Dr. Austen Hernadez NEUT # 6.2 103/ul Normal 1.4-6.5 [facility] Comment on above: Performed By: #### C BC #### [facility] [address] [place] [address] Dr. Austen Hernadez Neutrophils/100 WBC (Bld) 72.2 % Normal 43.0-75.0 [facility] Comment on above: Performed By: #### C BC #### [facility] [address] [place] [address] Dr. Austen Hernadez Platelet mean volume (Bld) [Entitic vol] 8.2 fL Critically low 9.5-13.5 [facility] Comment on above: Performed By: #### C BC #### [facility] [address] [place] [address] Dr. Austen Hernadez PLT 350 103/ul Normal 150-450 [facility] Comment on above: Performed By: #### C BC #### [facility] [address] [place] [address] Dr. Austen Hernadez RBC 4.44 106/ul Normal 4.20-5.40 [facility] Comment on above: Performed By: #### C BC #### [facility] [address] [place] [address] Dr. Austen Hernadez WBC 8.6 103/ul Normal 4.0-11.0 [facility] Comment on above: Performed By: #### C BC #### [facility] [address] [place] [address] Dr. Austen Hernadez GLYCOHEMOGLOBIN A1Con 2021 ADA RECOMMENDATION SEE BELOW Normal [facility] Comment on above: Result Comment: ADA RECOMMENDED LIMIT 4.0 - 6.0 ADA THERAPEUTIC TARGET < 7.0 ACTION SUGGESTED > 7.0 Performed By: #### A 1C #### [facility] [address] [address] [address] Austen Hernadez Glucose [Mass/Vol] 108 mg/dL Normal [facility] Comment on above: Performed By: #### A 1C #### [facility] [address] [place] [address] Dr. Austen Hernadez HbA1c (Bld) [Mass fraction] 5.4 % Normal 4.5-6.2 [facility] Comment on above: Performed By: #### A 1C #### [facility] [address] [place] [address] Dr. Austen Hernadez TSHon 07-30-2021 TSH 1.365 uIU/mL Normal 0.358-3.740 [facility] Comment on above: Performed By: #### T SH #### [facility] [address] [place] [address] Dr. Austen Hernadez TSH RANGE SEE BELOW Normal [facility] Comment on above: Result Comment: <0.3 4 UIU/ml HYPERTHYROID 0.34-5.60 UIU/ml EUTHYROID >5.60 UIU/ml HYPOTHYROID Performed By: #### T SH #### [facility] [address] [place] [address] Dr. Austen Hernadez US PELVIS AND TRANSVAGon [...] by: MACARENA GARCIA Date: 2021-07-30 15:31 Normal [facility] Vital Signs Date Time Vital Sign Value Performing Clinician Facility 04-19-2024 10:27-0500 Body mass index (BMI) [Ratio] 32.47 kg/m2 Bakari Hitesh DO Work Phone: [facility] 04-19-2024 10:27-0500 Body weight 83.14 kg Bakari Hitesh DO Work Phone: [facility] 04-19-2024 10:27-0500 Diastolic blood pressure 74 mm[Hg] Bakari Hitesh DO Work Phone: [facility] 04-19-2024 10:27-0500 Systolic blood pressure 118 mm[Hg] Bakari Hitesh DO Work Phone: [facility] 04-11-2024 14:32-0500 Body mass index (BMI) [Ratio] 32.42 kg/m2 Valentina VARGAS Work Phone: [facility] 04-11-2024 14:32-0500 Body weight 83.01 kg Valentina VARGAS Work Phone: [facility] 04-11-2024 14:32-0500 Diastolic blood pressure 78 mm[Hg] Valentina VARGAS Work Phone: [facility] 04-11-2024 14:32-0500 Systolic blood pressure 114 mm[Hg] Valentina VARGAS Work Phone: [facility] 04-03-2024 14:06-0500 Body mass index (BMI) [Ratio] 32.38 kg/m2 Bakari Hitesh DO Work Phone: [facility] 04-03-2024 14:06-0500 Body weight 82.92 kg Bakari Hitesh DO Work Phone: [facility] 04-03-2024 14:06-0500 Diastolic blood pressure 72 mm[Hg] Bakari Hitesh DO Work Phone: [facility] 04-03-2024 14:06-0500 Systolic blood pressure 118 mm[Hg] Bakari Hitesh DO Work Phone: [facility] 03-27-2024 14:43-0500 Body mass index (BMI) [Ratio] 31.78 kg/m2 Bakari Hitesh DO Work Phone: [facility] 03-27-2024 14:43-0500 Body weight 81.38 kg Bakari Hitesh DO Work Phone: [facility] 03-27-2024 14:43-0500 Diastolic blood pressure 68 mm[Hg] Bakari Hitesh DO Work Phone: [facility] 03-27-2024 14:43-0500 Systolic blood pressure 104 mm[Hg] Bakari Hitesh DO Work Phone: [facility] 03-12-2024 13:34-0500 Body mass index (BMI) [Ratio] 31.53 kg/m2 Valentina Suzi PA Work Phone: [facility] 03-12-2024 13:34-0500 Body weight 80.74 kg Valentina Suzi PA Work Phone: [facility] 03-12-2024 13:34-0500 Diastolic blood pressure 60 mm[Hg] Valentina Suzi PA Work Phone: [facility] 03-12-2024 13:34-0500 Systolic blood pressure 100 mm[Hg] Valentina Marshall PA Work Phone: [facility] 02-23-2024 15:40-0500 Body mass index (BMI) [Ratio] 30.82 kg/m2 Valentina Suzi PA Work Phone: [facility] 02-23-2024 15:40-0500 Body weight 78.93 kg Valentina Marshall PA Work Phone: [facility] 02-23-2024 15:40-0500 Diastolic blood pressure 76 mm[Hg] Valentina Marshall PA Work Phone: [facility] 02-23-2024 15:40-0500 Systolic blood pressure 116 mm[Hg] Valentina Suzi PA Work Phone: [facility] 02-08-2024 15:51-0500 Body mass index (BMI) [Ratio] 30.11 kg/m2 Bakari Hitesh DO Work Phone: [facility] 02-08-2024 15:51-0500 Body weight 77.11 kg Bakari Hitesh DO Work Phone: [facility] 02-08-2024 15:51-0500 Diastolic blood pressure 72 mm[Hg] Bakari Hitesh DO Work Phone: [facility] 02-08-2024 15:51-0500 Systolic blood pressure 118 mm[Hg] Bakari Hitesh DO Work Phone: [facility] 01-11-2024 14:51-0400 Body mass index (BMI) [Ratio] 28.84 kg/m2 Valentina Suzi PA Work Phone: [facility] 01-11-2024 14:51-0400 Body weight 73.85 kg Valentina Marshall PA Work Phone: [facility] 01-11-2024 14:51-0400 Diastolic blood pressure 64 mm[Hg] Valentina Marshall PA Work Phone: [facility] 01-11-2024 14:51-0400 Systolic blood pressure 102 mm[Hg] Valentina Marshall PA Work Phone: [facility] 01-02-2024 10:36-0400 Body height 160 cm Steffanie York MD Work Phone: [facility] 01-02-2024 10:36-0400 Body mass index (BMI) [Ratio] 28.48 kg/m2 Steffanie York MD Work Phone: [facility] 01-02-2024 10:36-0400 Body weight 72.94 kg Steffanie York MD Work Phone: [facility] 01-02-2024 10:36-0400 Diastolic blood pressure 64 mm[Hg] Steffanie York MD Work Phone: [facility] 01-02-2024 10:36-0400 Heart rate 67 /min Steffanie York MD Work Phone: [facility] 01-02-2024 10:36-0400 Systolic blood pressure 100 mm[Hg] Steffanie York MD Work Phone: [facility] 12-14-2023 14:35-0400 Body mass index (BMI) [Ratio] 28.48 kg/m2 Bakari Hitesh DO Work Phone: [facility] 12-14-2023 14:35-0400 Body weight 72.92 kg Bakari Hitesh DO Work Phone: [facility] 12-14-2023 14:35-0400 Diastolic blood pressure 66 mm[Hg] Bakari Hitesh DO Work Phone: [facility] 12-14-2023 14:35-0400 Systolic blood pressure 108 mm[Hg] Bakari Hitesh DO Work Phone: [facility] 12-08-2023 17:27-0400 Body height 160.02 cm [facility] 12-08-2023 17:27-0400 Body mass index (BMI) [Ratio] 28.3 kg/m2 [facility] 12-08-2023 17:27-0400 Body temperature 98.6 [degF] [place] 12-08-2023 17:27-0400 Body weight 72.57 kg [facility] 12-08-2023 17:27-0400 Diastolic blood pressure 69 mm[Hg] [facility] 12-08-2023 17:27-0400 Heart rate 87 /min [facility] 12-08-2023 17:27-0400 SaO2% (BldA) [Mass fraction] 97 % [facility] 12-08-2023 17:27-0400 Systolic blood pressure 107 mm[Hg] [facility] 11-16-2023 16:05-0400 Body mass index (BMI) [Ratio] 26.93 kg/m2 Bakari Hitesh DO Work Phone: [facility] 11-16-2023 16:05-0400 Body weight 68.95 kg Bakari Hitesh DO Work Phone: [facility] 11-16-2023 16:05-0400 Diastolic blood pressure 70 mm[Hg] Bakari Hitesh DO Work Phone: [facility] 11-16-2023 16:05-0400 Systolic blood pressure 118 mm[Hg] Bakari Hitesh DO Work Phone: [facility] 09-22-2023 07:00-0400 Diastolic blood pressure 85 mm[Hg] Rodrigo Morena [facility] 09-22-2023 07:00-0400 Heart rate 58 /min Rodrigo Morena [facility] 09-22-2023 07:00-0400 Mean blood pressure 94 mm[Hg] Rodrigo Morena [facility] 09-22-2023 07:00-0400 SaO2% (BldA) [Mass fraction] 100 % Rodirgo Morena [facility] 09-22-2023 07:00-0400 Systolic blood pressure 113 mm[Hg] Rodrigo Morena [facility] 09-22-2023 06:30-0400 Diastolic blood pressure 67 mm[Hg] Rodrigo Morena [facility] 09-22-2023 06:30-0400 Heart rate 62 /min Rodrigo Morena [facility] 09-22-2023 06:30-0400 Mean blood pressure 81 mm[Hg] Rodrigo Morena [facility] 09-22-2023 06:30-0400 Respiratory rate 16 /min Rodrigo Morena [facility] 09-22-2023 06:30-0400 SaO2% (BldA) [Mass fraction] 99 % Rodrigo Morena [facility] 09-22-2023 06:30-0400 Systolic blood pressure 110 mm[Hg] Rodrigo Morena [facility] 09-22-2023 05:52-0400 Diastolic blood pressure 66 mm[Hg] Rodrigo Morena [facility] 09-22-2023 05:52-0400 Heart rate 76 /min Rodrigo Morena [facility] 09-22-2023 05:52-0400 Mean blood pressure 80 mm[Hg] Rodrigo Morena [facility] 09-22-2023 05:52-0400 Respiratory rate 18 /min Rodrigo Morena [facility] 09-22-2023 05:52-0400 SaO2% (BldA) [Mass fraction] 98 % Rodrigo Morena [facility] 09-22-2023 05:52-0400 Systolic blood pressure 109 mm[Hg] Rodrigo Morena [facility] 09-22-2023 05:29-0400 Body temperature 98.96 [degF] Rodrigo Morena [facility] 09-22-2023 05:29-0400 Heart rate 67 /min Rodrigo Morena [facility] 07-18-2023 00:06-0400 Body height 160 cm Elva Servin MD Work Phone: [facility] 07-18-2023 00:06-0400 Body mass index (BMI) [Ratio] 30.11 kg/m2 [facility] Servin MD [facility] 07-18-2023 00:06-0400 Body temperature 98.29 [degF] Elva Servin MD Work Phone: [facility] 07-18-2023 00:06-0400 Body weight 77.11 kg Elva Servin MD Work Phone: [facility] 07-18-2023 00:06-0400 Diastolic blood pressure 79 mm[Hg] Elva Servin MD Work Phone: [facility] 07-18-2023 00:06-0400 Heart rate 61 /min Elva Servin MD Work Phone: [facility] 07-18-2023 00:06-0400 Respiratory rate 16 /min Elva Servin MD Work Phone: [facility] 07-18-2023 00:06-0400 SaO2% (BldA) [Mass fraction] 96 % Elva Servin MD Work Phone: [facility] 07-18-2023 00:06-0400 Systolic blood pressure 132 mm[Hg] Elva Servin MD Work Phone: [facility] 07-07-2022 09:35-0400 Diastolic blood pressure 60 mm[Hg] Chris Banegas [facility] 07-07-2022 09:35-0400 Heart rate 83 /min Chris Banegas [facility] 07-07-2022 09:35-0400 SaO2% (BldA) [Mass fraction] 97 % Chris Banegas [facility] 07-07-2022 09:35-0400 Systolic blood pressure 100 mm[Hg] Chris Banegas [facility] Encounters Encounter Date Encounter Type Care Provider Facility Start: 04-19-2024 End: 04-19-2024 Bamboo flowsheet Bakari Hitesh DO Work Phone: [facility] Start: 04-19-2024 End: 04-19-2024 Bamboo flowsheet Bakari Hitesh DO Work Phone: [facility] Start: 04-19-2024 End: 04-19-2024 flow sheet Bakari Hitesh DO Work Phone: [facility] Comment on above: Third trimester preg nadia; 39 weeks gestation of Start: 04-19-2024 End: 04-19-2024 ambulatory BAKARI PROCTOR Not Available Start: 04-16-2024 End: 04-16-2024 ambulatory VALENTINA CORDOVA Not Available Start: 04-11-2024 End: 04-11-2024 flow sheet Valentina VARGAS Work Phone: [facility] Comment on above: Third trimester preg nadia; 37 weeks gestation of ; Excessive growth affecting management of in third trimester, single or unspecified fetus Start: 04-11-2024 End: 04-11-2024 ambulatory VALENTINA CORDOVA Not Available Start: 04-11-2024 End: 04-11-2024 Bamboo flowsheet Valentina VARGAS Work Phone: [facility] Start: 04-11-2024 End: 04-11-2024 Bamboo flowsheet Valentina VARGAS Work Phone: [facility] Start: 04-03-2024 End: 04-03-2024 Bamboo flowsheet Bakari Hitesh DO Work Phone: [facility] Start: 04-03-2024 End: 04-08-2024 Bamboo flowsheet Bakari Hitesh DO Work Phone: [facility] Start: 04-03-2024 End: 04-08-2024 Clinisync Result Encounter Bakari Hitesh DO Work Phone: [facility] Unsolicited Start: 04-03-2024 End: 04-03-2024 ambulatory BAKARI HITESH Not Available Start: 04-03-2024 End: 04-03-2024 flow sheet Bakari Hitesh DO Work Phone: [facility] Comment on above: Third trimester preg nadia; 36 weeks gestation of Start: 03-27-2024 End: 03-27-2024 ambulatory BAKARI HITESH Not Available Start: 03-27-2024 End: 03-27-2024 flow sheet Bakari Hitesh DO Work Phone: [facility] Comment on above: Third trimester preg nadia; 35 weeks gestation of ; Mood disorder ([facility]/HCC) Start: 03-27-2024 End: 03-27-2024 Bamboo flowsheet Bakari Hitesh DO Work Phone: [facility] Start: 03-27-2024 End: 03-27-2024 Bamboo flowsheet Bakari Hitesh DO Work Phone: [facility] Start: 03-23-2024 End: 03-23-2024 Clinisync Result Encounter Bakari Hitesh DO Work Phone: [facility] Unsolicited Start: 03-23-2024 End: 03-23-2024 Clinisync Result Encounter Bakari Hitesh DO Work Phone: [facility] Unsolicited Start: 03-12-2024 End: 03-12-2024 flow sheet Valentina VARGAS Work Phone: [facility] Comment on above: 33 weeks gestation o f ; Third trimester Start: 03-12-2024 End: 03-12-2024 Bamboo flowsheet Valentina VARGAS Work Phone: [facility] Start: 03-12-2024 End: 03-12-2024 Bamboo flowsheet Valentina VARGAS Work Phone: [facility] Start: 03-12-2024 End: 03-12-2024 ambulatory [...] [facility] Start: 02-08-2024 End: 02-08-2024 ambulatory BAKARI HITESH Not Available Start: 02-08-2024 End: 02-08-2024 flow sheet Bakari Hitesh DO Work Phone: [facility] Comment on above: Third trimester preg nadia; 28 weeks gestation of Start: 02-08-2024 End: 02-08-2024 Bamboo flowsheet Bakari Hitesh DO Work Phone: [facility] Start: 02-08-2024 End: 02-08-2024 Bamboo flowsheet Bakari Hitesh DO Work Phone: [facility] Start: 02-02-2024 End: 02-02-2024 ambulatory [facility] Start: 02-01-2024 End: 02-01-2024 [...] 01-02-2024 Office consultation new/estab patient 60 min Steffanie York MD Work Phone: [facility] [place] Comment on above: Partial placenta pre via (Primary Dx) Start: 01-02-2024 End: 01-02-2024 Orders Only Sushila Mcneil RN [facility] [place] Comment on above: Low-lying placenta ( Primary Dx); Personal history of cardiac murmur Start: 12-20-2023 End: 12-20-2023 Chart abstracting Steffanie York MD Work Phone: [facility] Start: 12-16-2023 End: 12-16-2023 Chart abstracting Steffanie York MD Work Phone: [facility] Start: 12-14-2023 End: 12-14-2023 flow sheet Bakari Hiteshiker LOPEZ Work Phone: [facility] Comment on above: Second trimester pre gnancy; 20 weeks gestation of ; Partial placenta previa Start: 12-14-2023 End: 12-14-2023 ambulatory BAKARI HITESH Not Available Start: 12-08-2023 End: 12-08-2023 ambulatory [facility] Work Phone: Start: 12-08-2023 End: 12-08-2023 Patient encounter procedure [facility] Work Phone: Start: 11-16-2023 End: 11-16-2023 Patient encounter procedure Bakari Hitesh DO Work Phone: [facility] Start: 11-16-2023 End: 11-16-2023 Periodic preventive med est patient 18-39 yrs Bakari Hitesh DO Work Phone: [facility] Comment on above: Well woman exam with routine gynecological exam; Second trimester ; Exposure to STD; Screening, , for anatomic survey; Need for maternal serum alpha-protein (MSAFP) screening Start: 11-16-2023 End: 11-16-2023 ambulatory BAKARI HITESH Not Available Start: 11-16-2023 End: 11-16-2023 Bamboo flowsheet Bakari Hitesh DO Work Phone: [facility] Start: 11-16-2023 End: 11-20-2023 Clinisync Result Encounter Bakari Hitesh DO Work Phone: [facility] Unsolicited Start: 11-16-2023 End: 11-19-2023 External Result Encounter Bakari Hitesh DO Work Phone: [facility] Unsolic[facility] Start: 11-16-2023 End: 11-20-2023 External Result Encounter Bakari Hitesh DO Work Phone: [facility] Unsolic[facility] Start: 10-17-2023 End: 10-17-2023 ambulatory BAKARI HITESH Not Available Start: 09-29-2023 End: 09-29-2023 ambulatory BAKARI HITESH Not Available Start: 09-22-2023 End: 09-22-2023 Emergency department patient visit Rodrigo Berg [facility] Start: 07-18-2023 End: 07-18-2023 Emergency department patient visit ELVA SERVIN [facility] Start: 07-18-2023 End: 07-18-2023 Emergency department patient visit Elva Servin MD Work Phone: [facility] ED Comment on above: De Fuad's tenosy novitis, left (Primary Dx) Start: 07-14-2023 End: 07-14-2023 ambulatory Love Palmer [facility] Start: 07-14-2023 End: 07-14-2023 Lab Drop off Love Martine Noriegae [facility] Start: 06-15-2023 End: 06-15-2023 ambulatory BAKARI PROCTOR Not Available Start: 07-07-2022 End: 07-07-2022 Patient encounter procedure Chris Banegas [facility] Start: 07-30-2021 End: 07-31-[address] BAKARI PROCTOR Facility: Start: 07-15-2021 End: 07-15-2021 Lab Drop off Love J Spencer [facility] Procedures Date Procedure Procedure Detail Performing Clinician Start: 04-11-2024 Urnls dip stick/tabl et rgnt non-auto w/o micrscp Valentina VARGAS Work Phone: Start: 04-03-2024 Urnls dip stick/tabl et rgnt non-auto w/o micrscp Bakari Hitesh DO Work Phone: Start: 04-03-2024 ALL MISCELLANEOUS TEST Bakari Hitesh DO Work Phone: Start: 03-27-2024 Urnls dip stick/tabl et rgnt non-auto w/o micrscp Bakari Hitesh DO Work Phone: Start: 03-23-2024 [facility] UA (CLEAN/CATCH) LIABILITY CLAIMS REPRESENTATIVE/MICRO IF IND. Bakari Proctor DO Work Phone: Start: 03-12-2024 Urnls dip stick/tabl et rgnt non-auto w/o micrscp Valentina VARGAS Work Phone: Start: 02-08-2024 Urnls dip stick/tabl et rgnt non-auto w/o micrscp Bakari Hitesh DO Work Phone: Start: 02-01-2024 GLUCOSE TOLERANCE 3 HOUR Valentina VARGAS Work Phone: Start: 01-28-2024 ALL CBC WITH AUTO DIFF Valentina VARGAS Work Phone: Start: 01-28-2024 GLUCOSE 1 HOUR Valentina Quinteros Work Phone: Start: 01-11-2024 Urnls dip stick/tabl et rgnt non-auto w/o micrscp Valentina VARGAS Work Phone: Start: 12-14-2023 Urnls dip stick/tabl et rgnt non-auto w/o micrscp Bakari Deeo DO Work Phone: Start: 12-08-2023 Quick Strep (POC) Start: 11-16-2023 Urnls dip stick/tabl et rgnt non-auto w/o micrscp Bakari Deeo DO Work Phone: Start: 11-16-2023 IGP,APTIMA HPV,AGE GDLN Bakari Proctor DO Work Phone: Start: 11-16-2023 Microscopic observat ion [Identifier] in Cervix by Cyto stain Steffanie York MD Work Phone: Start: 11-16-2023 URETHRITIS/DISCHARGE PLUS VAGINITIS (HTRX) Bakari Deeo DO Work Phone: Plan of Treatment Date Care Activity Detail Author Start: 11-15-2026 Screening for malign ant neoplasm of cervix Pap Smear [facility] Start: 01-01-2025 End: 01-01-2025 US MFM with or without consult US MFM with or without consult Imaging Routine Low-lying placenta Personal history of cardiac murmur Expected: 01/01/2025 (Approximate), Expires: 01/01/2025 [facility] Work Phone: Comment on above: Expected: 01/01/2025 (Approximate), Expires: 01/01/2025 Start: 04-19-2024 End: 04-19-2024 Patient encounter procedure [facility] Comment on above: Arrived Start: 04-16-2024 End: 04-16-2024 Professional / ancillary services management 04/16/2024 3:00 PM EST Ancillary Procedure [facility] [address] [place] [address] [facility] Start: 04-11-2024 End: 04-11-2024 Patient encounter procedure [facility] Comment on above: Arrived Start: 04-11-2024 End: 04-11-2025 US for US OB follow up transabdominal approach Imaging Routine Excessive growth affecting management of in third trimester, single or unspecified fetus Expected: 04/11/2024, Expires: 04/11/2025 [facility] Work Phone: Comment on above: Expected: 04/11/2024 , Expires: 04/11/2025 Start: 04-03-2024 End: 04-03-2025 CULTURE, GROUP B STREP WITH SUSCEPTIBLITY CULTURE, GROUP B STREP WITH SUSCEPTIBLITY Lab Routine Third trimester Expected: 04/03/2024, Expires: 04/03/2025 [facility] Work Phone: Comment on above: Expected: 04/03/2024 , Expires: 04/03/2025 Start: 04-03-2024 End: 04-03-2024 Patient encounter procedure 04/03/2024 1:30 PM EST Routine [facility] [address] [place] [place] [id number] Bakari Proctor, DO [address] [place] [address] [facility] Start: 03-27-2024 End: 03-27-2024 Patient encounter procedure 03/27/2024 2:30 PM EST Routine [facility] [address] [place] [id number] Bakari Proctor, DO [address], [place] [id number] [facility] Start: 03-12-2024 End: 03-12-2024 Patient encounter procedure 03/12/2024 2:40 PM EST Routine [facility] [address] [place] [address] Valentina Cordova PA [address] [place], [place] [id number] Arrived [facility] Comment on above: Arrived Start: 03-12-2024 End: 03-12-2024 Professional / ancillary services management 03/12/2024 1:00 PM EST Ancillary Procedure [facility] [address] [place] [address] [facility] Start: 02-23-2024 End: [...] [facility] [address] [place] [address] Bakari Proctor, DO [address], [place] [id number] [facility] Start: 02-02-2024 End: 02-02-2024 Patient encounter procedure 02/02/2024 1:00 PM EST Appointment [facility] [place] [address] [place] [address] [facility] [place] Start: 01-11-2024 End: 01-11-2024 Patient encounter procedure 01/11/2024 2:30 PM EDT Routine [facility] [address] [place] [phone] Valentina Cordova PA [address] [place], [place] [id number] [facility] Start: 01-11-2024 End: 01-10-2025 CBC panel - Blood by Automated count CBC Lab Routine Diabetes mellitus screening Expected: 01/11/2024 (Approximate), Expires: 01/10/2025 [facility] Work Phone: Comment on above: Expected: 01/11/2024 (Approximate), Expires: 01/10/2025 Start: 01-11-2024 End: 01-10-2025 Measurement of glucose 1 hour after glucose challenge for glucose tolerance test Glucose tolerance, 1 hour Lab Routine Diabetes mellitus screening Expected: 01/11/2024 (Approximate), Expires: 01/10/2025 [facility] Comment on above: Expected: 01/11/2024 (Approximate), Expires: 01/10/2025 Start: 01-02-2024 End: 01-02-2024 Patient encounter procedure [facility] [place] Start: 12-14-2023 End: 12-14-2023 Patient encounter procedure 12/14/2023 2:10 PM EDT Routine [facility] [address] [place] [phone] Bakari Proctor DO [address] [place] [address] [facility] Start: 12-14-2023 End: 12-14-2023 Professional / ancillary services management 12/14/2023 1:00 PM EDT Ancillary Procedure [facility] [address] [place] [address] [facility] Start: 11-16-2023 End: 11-16-2023 Patient encounter procedure 11/16/2023 3:30 PM EDT Routine [facility] [address] [place] [address] Bakari Proctor, DO [address] [place], [place] [id number] Arrived [facility] Comment on above: Arrived Start: 11-16-2023 End: 12-16-2023 Alpha fetoprotein, maternal Alpha fetoprotein, maternal Lab Routine Need for maternal serum alpha-protein (MSAFP) screening Expected: 11/16/2023 (Approximate), Expires: 12/16/2023 [facility] Comment on above: Expected: 11/16/2023 (Approximate), Expires: 12/16/2023 Start: 11-16-2023 End: 11-15-2024 US for US OB ANATOMY SINGLE W US OB CERVICAL LENGTH Imaging Routine Screening, , for anatomic survey Expected: 11/16/2023 (Approximate), Expires: 11/15/2024 [facility] [facility] Comment on above: Expected: 11/16/2023 (Approximate), Expires: 11/15/2024 Start: 11-13-2023 Influenza vaccination [facility] Start: 10-13-2023 Influenza vaccination Flu vacc ine (Season Ended) [facility] Start: 11-02-2021 DTaP,Tdap and Td Vaccines (7 - Td or Tdap) DTaP,Tdap and Td Vaccines (7 - Td or Tdap) [facility] Start: 12-11-2019 Screening for malign ant neoplasm of cervix Pap Smear [facility] Start: 2017 DTaP,Tdap and Td Vaccines (1 - Tdap) DTaP,Tdap and Td Vaccines (1 - Tdap) [facility] Start: 2017 DTaP/Tdap/Td vaccine (1 - Tdap) DTaP/Tdap/Td vaccine (1 - Tdap) [facility] Start: 2016 Adult BMI Follow Up Plan Adult BMI Follow Up Plan [facility] Start: 2016 Adult BMI Screening Adult BMI Screen ing [facility] Start: 2010 Depression Screening Depression Scre ening [facility] Start: 2010 Tobacco Screening Tobacco Screening [facility] Start: 06-10-1999 COVID-19 Vaccine (#1) COVID-19 Vacci ne (#1) [facility] CHLAMYDIA TRACHOMATI S (GENITO/STI) CHLAMYDIA TRACHOMATIS (GENITO/STI) Lab Routine Exposure to STD Ordered: 11/16/2023 [facility] Comment on above: Ordered: 11/16/2023 Cytology Cervical or vaginal smear or scraping study Pap Smear Pathology and Cytology Routine Well woman exam with routine gynecological exam Ordered: 11/16/2023 [facility] Work Phone: Comment on above: Ordered: 11/16/2023 Neisseria gonorrhoea e DNA [Presence] in Unspecified specimen by KESHIA with probe detection Neisseria gonorrhea DNA probe, direct Lab Routine Exposure to STD Ordered: 11/16/2023 [facility] Comment on above: Ordered: 11/16/2023 SURESWAB(R) ADVANCED VAGINITIS PLUS, TMA SURESWAB(R) ADVANCED VAGINITIS PLUS, TMA Pathology and Cytology Routine Exposure to STD Ordered: 11/16/2023 [facility] Comment on above: Ordered: 11/16/2023 Immunizations Immunization Date Immunization Notes Care Provider Carlota melchor 12-28-2018 influenza virus vacc ine, unspecified formulation Bakari Proctor DO Work Phone: [facility] Payers Date Payer Category Payer [facility] BCBS [id number] 2023 Blue Cross Blue Shie ld Managed Care - Other ANTHEM Member Subscriber Plan / Payer (Effective 2023-Present) Name: Sebastian Aleman Relation to Subscriber: Self Name: Sebastian Aleman Payer ID: [id number] ([facility]) Type: Not on file Address: [address] [place] [id number] 2023 Unknown 2023 Unknown [id number] .[id number] 1998 Unknown [id number] 2.16.840.1.889441.3.579 .2.593 1998 Unknown [id number] 2.16.840.1.340881.3.579 .2.173 1998 Unknown [id number] 2.16.840.1.900882.3.579 .2.727 1998 Unknown [id number] 2.16.840.1.606255.3.579 .2.727 1998 Unknown [id number] 2.16.840.1.782329.3.579 .2.727 1998 Unknown [id number] 2.16.840.1.890183.3.579 .2.1286 1998 Unknown [id number] 2.16.840.1.072168.3.579 .2.1286 1998 Unknown [id number] 2.16.840.1.926623.3.579 .2.1286 1998 Unknown [id number] 2.16.840.1.190355.3.579 .2.1258 1998 Unknown [id number] 2.16.840.1.915930.3.579 .2.1258 1998 Unknown [id number] 2.16.840.1.132049.3.579 .2.1258 1998 Unknown [id number] 2.16.840.1.918664.3.579 .2.1258 1998 Unknown [id number] 2.16.840.1.647773.3.579 .2.1258 1998 Unknown [id number] 2.16.840.1.204280.3.579 .2.1258 1998 Unknown [id number] 2.16.840.1.958674.3.579 .2.1258 1998 Unknown [id number] 2.16.840.1.136055.3.579 .2.1258 1998 Unknown [id number] 2.16.840.1.610370.3.579 .2.1258 1998 Unknown [id number] 2.16.840.1.230928.3.579 .2.1258 1998 Unknown [id number] 2.16.840.1.574859.3.579 .2.1258 1998 Unknown [id number] 2.16.840.1.147498.3.579 .2.1258 1998 Unknown [id number] 2.16.840.1.871934.3.579 .2.1258 1998 Unknown [id number] 2.16.840.1.360204.3.579 .2.1259 1959 Unknown [id number] Social History Date Type Detail Facility Start: 10-24-2020 End: 01-02-2024 Tobacco smoking status Never smoked tobacco (finding) [facility] Tobacco smoking status Never [facility] Start: 07-01-2012 End: 01-02-2024 Sex Assigned At Female [facility] Start: 07-18-2023 End: 01-02-2024 Tobacco use and exposure Smokeless tobacco [facility] Start: 07-18-2023 End: 01-02-2024 Alcohol intake Ex-drinker (finding) [facility] Start: 07-01-2012 End: 01-02-2024 History of Social function [facility] Start: 1998 Sex Assigned At Not on file [facility] Sex Assigned At Female [facility] Tobacco smoking status NHIS Tobacco smoking consumption unknown [facility] Start: 08-06-2023 [facility] Start: 05-26-2022 Gender identity Identifies as female gender (finding) [facility] Start: 12-16-2023 Sex Female (finding) [facility] NEGATED: Highlighted rowStart: NINF History of tobacco use Passive smoker [facility] Goals Date Patient Goal Desired Activity /State Personal health goal Functional Status Date Assessment Result Facility 09-22-2023 Functional Status N/A [facility] 07-07-2022 Functional Status N/A [facility] Clinical Notes 07-15-2021 to 04-19-2024 Aurora Koch LPN - 04/19/2024 10:00 AM ALICIA Aparicio - 04/11/2024 2:30 PM Malcolm Moss LPN - 04/03/2024 1:30 PM Malcolm Moss LPN - 03/27/2024 2:30 PM EST Note Date & Type Note Facility 04-19-2024 History of Present illness Narrative Reason for Appointment: Patient ID: Sebastian Aleman is a 23 y.o. female who presents for Routine Visit Patient presents today for Return OB appointment. MEDICATIONS Current Outpatient Medications Medication Instructions ondansetron ODT (Zofran-ODT) 4 MG disintegrating tablet valACYclovir (VALTREX) 500 mg, Oral, Daily venlafaxine XR (EFFEXOR XR) 37.5 mg, Oral, Daily, Do not crush or chew. ALLERGIES No Known Allergies PROBLEMS Active Ambulatory [...] SYSTEMS Review of Systems: Review of Systems All other systems reviewed and are negative. OBJECTIVE Objective: Physical Exam Constitutional: Appearance: Normal [...] nursing note reviewed. Exam conducted with a nuclear criticality safety engineer present. Vitals: Estimated body mass index is 32.47 kg/m as calculated from the following: Height as of 07/05/22: 5' 3 . Weight as of this encounter: 183 lb 4.8 oz. BP: 118/74 Patient's last menstrual period was 07/30/2023. ASSESSMENT & PLAN ICD-10-CM 1. Third trimester Z34.93 2. 39 weeks gestation of Z3A.39 Patient presents today for a routine obstetrics appointment. Patient is currently 38w5d with a Estimated Date of Delivery: 04/28/24. Pelvic exam performed and patient is currently 1 cm dilated. Patient to have IOL on 04/23/24 @ 0500. Will check with [facility] to ensure patient is on the schedule. Patient to return to clinic for post appointment. Documented by Aurora Koch LPN on behalf of: Bakari Proctor DO documented in this encounter [facility] 04-11-2024 History of Present illness Narrative Reason for Appointment: Patient ID: Sebastian Aleman is a 23 y.o. female who presents for Routine Visit Patient presents today for Return OB appointment. MEDICATIONS Current Outpatient Medications Medication Instructions ondansetron ODT (Zofran-ODT) 4 MG disintegrating tablet valACYclovir (VALTREX) 500 mg, Oral, Daily venlafaxine XR (EFFEXOR XR) 37.5 mg, Oral, Daily, Do not crush or chew. ALLERGIES No Known Allergies PROBLEMS Active Ambulatory [...] reviewed. Vitals: Estimated body mass index is 32.38 kg/m as calculated from the following: Height as of 07/05/22: 5' 3 . Weight as of 04/03/24: 182 lb 12.8 oz. BP: Patient's last menstrual period was 07/30/2023. ASSESSMENT & PLAN ICD-10-CM 1. Third trimester Z34.93 POCT urinalysis dipstick manually resulted 2. 37 weeks gestation of Z3A.37 Return OB: Patient presents today for a routine obstetrics appointment. Patient is currently 37w4d . Patient states she is doing well [...] week for routine OB appointment. Documented by Racquel Tinsley MA on behalf of: ALICAI Knutson documented in this encounter [facility] 04-03-2024 History of Present illness Narrative Reason for Appointment: Patient ID: Sebastian Aleman is a 23 y.o. female who presents for Routine Visit Patient presents today for Return OB appointment. MEDICATIONS Current Outpatient Medications Medication Instructions ondansetron ODT (Zofran-ODT) 4 MG disintegrating tablet valACYclovir (VALTREX) 500 mg, Oral, Daily venlafaxine XR (EFFEXOR XR) 37.5 mg, Oral, Daily, Do not crush or chew. ALLERGIES No Known Allergies PROBLEMS Active Ambulatory [...] nursing note reviewed. Exam conducted with a nuclear criticality safety engineer present. Vitals: Estimated body mass index is 32.38 kg/m as calculated from the following: Height as of 07/05/22: 5' 3 . Weight as of this encounter: 182 lb 12.8 oz. BP: 118/72 Patient's last menstrual period was 07/30/2023. ASSESSMENT & PLAN ICD-10-CM 1. Third trimester Z34.93 CULTURE, GROUP B STREP WITH SUSCEPTIBLITY CULTURE, GROUP B STREP WITH SUSCEPTIBLITY 2. 36 weeks gestation of Z3A.36 POCT urinalysis dipstick manually resulted Patient is doing well but has complaints of being tired and having maternal discomfort due to . Patient verbalized frequent movement and was instructed to perform kick counts three times per day. labor precautions were given, LARC consent was signed/declined, and GBS was obtained. Cervical check was performed and patient is 1cm dilated. Orders Placed This Encounter Procedures CULTURE, GROUP B STREP WITH SUSCEPTIBLITY POCT urinalysis dipstick manually resulted Follow Up: Patient is to return to office in 1 week for routine OB appointment Documented by Kami Moss LPN on behalf of: Bakari Proctor DO documented in this encounter [facility] 03-27-2024 History of Present illness Narrative Reason for Appointment: Patient ID: Sebastian Aleman is a 23 y.o. female who [...] nursing note reviewed. Exam conducted with a nuclear criticality safety engineer present. Vitals: Estimated body mass index is [...] by Kami Moss LPN on behalf of: Bakari Proctor DO documented in this encounter [facility] 02-23-2024 History of Present illness Narrative Reason for Appointment: Patient ID: Sebastian Aleman is a 23 y.o. female who [...] of: ALICIA Knutson documented in this encounter [facility] 02-08-2024 History of Present illness Narrative Reason for Appointment: Patient ID: Sebastian Aleman is a 23 y.o. female who [...] nursing note reviewed. Exam conducted with a nuclear criticality safety engineer present. Vitals: Estimated body mass index is [...] by Kami Moss LPN on behalf of: Bakari Proctor DO documented in this encounter [facility] 01-11-2024 History of Present illness Narrative Reason for Appointment: Patient ID: Sebastian Aleman is a 23 y.o. female who [...] of: ALICIA Knutson documented in this encounter [facility] 01-02-2024 History of Present illness Narrative REASON FOR CONSULTATION: Posterior low-lying placenta. HISTORY OF PRESENT ILLNESS: Sebastian Aleman is a pleasant 23 y.o. G [...] and the other consultants, we search on [employer] and all the available care everywhere epic I did review all the imaging studies of the patient available on EMR, ordered by the primary care physician and the other senior market intelligence consultant HABITS: Patient activity no restrictions, diet [...] patient is in complete care of her breaster. Patient does have ultrasound scheduled with us. Thank you for allowing me to participate in [employer] . If there any questions please do not hesitate to contact us. Sincerely, STEFFANIE YORK MD Headache/epigastric pain/blurry vision/swelling? No Cramping/contractions? No Abnormal vaginal discharge? No Spotting/vaginal bleeding? No Loss or gush of fluid like your water may have broken? No Do you have cats at home? Yes Do you change the litter box (reason: risk of toxoplasmosis)? No Genetic testing done this here or other office? CFDNA neg Have you been seen here at [facility] in a previous ? No Recent ER visits or hospitalizations? No Bring blood sugar log or meter with you today? (Please bring them with you for every visit at [facility]) N/A Flu vaccine (Jan-May)? N/A Any concerns that you would like me to mention to the provider today? No documented in this encounter [facility] 12-14-2023 History of Present illness Narrative Reason for Appointment: Patient ID: Sebastian Aleman is a 23 y.o. female who [...] nursing note reviewed. Exam conducted with a nuclear criticality safety engineer present. Vitals: Estimated body mass index is [...] partially covers os. Pt being referred to [facility] for evaluation of placenta previa. Pt to be on pelvic rest until further notice. Pt to return in 4 weeks. Documented by Kami Moss LPN on behalf of: Bakari Proctor DO documented in this encounter [facility] 11-16-2023 History of Present illness Narrative Reason for Appointment: Patient ID: Sebastian Aleman is a 22 y.o. female who [...] nursing note reviewed. Exam conducted with a nuclear criticality safety engineer present. Vitals: Estimated body mass index is [...] Valentina Cordova PA-C documented in this encounter [facility] 09-22-2023 Evaluation + Plan note Extrac arvin from: Title:ED Note Author:Rodrigo Berg DOMelina Date :09/22/23 Asymptomatic bacteriuria dur ing (O99.891: Other specified diseases and conditions complicating ) Bacteriuria (R82.71: Bacteriuria) Nausea and vomiting during (O21.9: Vomiting of , unspecified) Orders: cephalexin, 500 mg = 1 cap(s), Oral, q12hr, X 5 day(s), # 10 cap(s), Refills(s) 0, Pharmacy: [facility]/pharmacy #[id number], 160, cm, 09/22/23 5:34:00 EDT, Height/Length Dosing, 72.4, kg, 09/22/23 5:34:00 EDT, Weight Dosing Lactated Ringers Injection, 1,000 mL, Soln-IV, IV, Once, Stop date 09/22/23 5:38:00 EDT, STAT, Start date 09/22/23 5:38:00 EDT, mL/hr, Infuse over 61, minute(s) promethazine, 12.5 mg = 1 tab(s), Oral, q8hr, PRN as needed for nausea/vomiting, # 12 tab(s), Refills(s) 0, Pharmacy: [facility]/pharmacy #[id number], 160, cm, 09/22/23 5:34:00 EDT, [...] Diagnostic Tests Pending * Urine Culture 09/22/23 [facility]07-11-2024 Hospital Discharge instructions Patient Education 09/22/2023 07:17:19 [...] Follow these instructions at home: Medicines Take esjj-jcb-chlfhcx and prescription medicines only as told by your health care provider. Do not use any prescription, wehr-iig-yvcdbdt, or herbal medicines for morning sickness without [...] provider. Document Revised: 10/13/2020 Document Reviewed: 09/22/2020 [employer] Patient Education 2022 [employer]. 09/22/2023 07:17:19 Asymptomatic Bacteriuria Asymptomatic Bacteriuria Asymptomatic [...] Follow these instructions at home: Medicines Take ljkd-ahk-bdmnezg and prescription medicines only as told by [...] provider. Document Revised: 10/10/2020 Document Reviewed: 10/10/2020 [employer] Patient Education 2022 [employer]. Follow Up Care 09/22/2023 05:26:40 With:Bakari PROCTOR Address: [address] [place] [address] Business (1) When:09/25/2023 06:28:14 [facility]07-11-2024 NoteED Patient Education Note Obstetrics and Gynecology [...] these instructions at home: Medicines ? Take ycrt-htm-wnibcta and prescription medicines only as told by your health care provider. Do not use any prescription, djde-tpt-zyhsdtd, or herbal medicines for morning sickness without [...] provider. Document Revised: 10/13/2020 Document Reviewed: 09/22/2020 [employer] Patient Education ? 2022 [employer]. Urology Asymptomatic Bacteriuria Asymptomatic bacteriuria is the [...] are an o (more content not included)...[facility] 07-18-2023 Hospital Discharge instructions* Discharge Instructions* Elva Servin MD - 07/18/2023 12:09 AM [...] sent through Care Everywhere. * Tenosynovitis: Wrist (Malian) [facility] Discharge instructions Patient Education [...] numbers. This can be done either in [place]ian (U.S.) or metric measurements. Note that charts and online BMI calculators are available to help you find your BMI quickly and easily without having to do these calculations yourself. To calculate your BMI in [place]ian ([place] measurements: 1.Measure your weight in pounds [...] Centers for Disease Control and Prevention: www.cdc.gov [place] Heart Association: www.heart.org National Heart, Lung, and Blood [place]: www.nhlbi.nih.gov Summary Body mass index (BMI) is a number that is calculated from a person's weight and height. BMI may help estimate how much of a person's weight is composed of fat. BMI can help identify thosewho may be at higher risk for certain medical problems. BMI can be measured using Malian measurements or metric measurements. BMI charts are used to identify whether you are underweight, normal weight, overweight, or obese. This information is not intended to replace advice given to you by your health care provider. Make sure you discuss any questions you have with your health care provider. Document Revised: 11/21/2019 Document Reviewed: 09/28/2019 [employer] Patient Education 2022 [employer]. 07/07/2022 10:02:02 Tendinitis, Hmou-vx-Vrby Tendinitis Tendinitis is irritation and swelling (inflammation) [...] only as told by your doctor. Take ubcz-hdd-kepvcln and prescription medicines only as told by [...] provider. Document Revised: 11/05/2021 Document Reviewed: 11/05/2021 [employer] Patient Education 2022 [employer]. Follow Up Care 07/07/2022 09:19:19 With:NONE, XXXX Address: [phone] When: Unknown [facility] 05-04-2022 Evaluation + Plan note Diagnostic Tests Pending * Chlamydia/Gonococcus, KESHIA [facility]* Diagnosis De Quervain's tenosynovitis, left- Primary Radial styloid tenosynovitis documented [facility] assessment information available [facility] Work Phone: Evaluation note* Diagnosis Second trimester state, incidental 20 weeks gestation of Partial placenta previa Placenta previa without hemorrhage, unspecified as to episode of care [facility] Diagnosis Partial placenta previa- Primary Placenta previa without hemorrhage, unspecified as to episode of care [facility] Diagnosis Low-lying placenta- Primary Hemorrhage from placenta previa, unspecified as to episode of care Personal history of cardiac murmur Personal history of other diseases of circulatory system [facility]* Diagnosis Second trimester state, incidental 24 weeks gestation of Diabetes mellitus screening Screening for diabetes mellitus documented in this encounter [facility]* Diagnosis Third trimester state, incidental 28 weeks gestation of documented in this encounter [facility]* Diagnosis size inconsistent with dates- Primary Third trimester state, incidental 30 weeks gestation of Herpes simplex Herpes simplex without mention of complication documented in this encounter [facility]* Diagnosis Well woman exam with routine gynecological exam Routine gynecological examination Second trimester state, incidental Exposure to STD Screening, , for anatomic survey Encounter for anatomic survey Need for maternal serum alpha-protein (MSAFP) screening [facility] Diagnosis 33 weeks gestation of Third trimester state, incidental [facility]* Diagnosis Third trimester state, incidental 35 weeks gestation of Mood disorder (CMS/HCC) Unspecified episodic mood disorder documented in this encounter [facility]* Diagnosis Third trimester state, incidental 36 weeks gestation of [facility] Diagnosis Third trimester state, incidental 37 weeks gestation of Excessive growth affecting management of in third trimester, single or unspecified fetus [facility]* Diagnosis Third trimester state, incidental 39 weeks gestation of documented in [facility] illness Narrative* ALICIA Knutson - 03/12/2024 2:40 PM EST Reason for Appointment: Patient ID: Sebastian Aleman is a 23 y.o. female who [...] behalf of: ALICIA Knutson [facility] Narrative No data available for this section [facility] No data available for this section [facility] filedocumented in this encounter [facility] filedocumented in this encounter [facility] System[facility]ructionsNot on filedocumented in this encounter [facility] No data available for this section [facility] Reason for referral (narrative) Referred by: Chris Banegas PA-C [facility] Summary Purpose Family History [...] CREATED AUTHOR AUTHOR'S ORGANIZ ATION 09/28/[address] [facility] DATE CREATED AUTHOR AUTHOR'S ORGANIZ ATION 09/29/[address] [facility] DATE CREATED AUTHOR AUTHOR'S ORGANIZ ATION 02/05/2024 [facility] DATE CREATED AUTHOR AUTHOR'S ORGANIZ ATION 04/21/2024 [facility] EPIC Reason for Visit (unrecogniz ed section and content) Reason Comments Wrist Injury Patient arrived to E with complaints of left wrist injury. Patient states she slipped and went to grab a hold of something and injured her wrist approximately 1 hour [employer]. 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 [facility] [employer] provides no warranty or guarantee of the accuracy or completeness of information in this document.
[2024-04-23] MEDS: 0.9 % SODIUM CHLORIDE 1,000 ML 125 ML IV ×3 (06:03→18:44)
[2024-04-23] MEDS: OXYTOCIN/0.9 % SODIUM CHLORIDE 10 UNITS/500 ML PLAST..BAG 6 UNIT IV (06:17)
[2024-04-23 06:29] LABS: Hematocrit 37.6 % (36.0-48.0); Hemoglobin 12.8 g/dL (12.0-16.0); Mean Corpuscular Hemoglobin 30.3 pg (26.7-34.0); Mean Corpuscular Volume 89.1 fL (81.0-99.0); Mean Platelet Volume 9.9 fL (9.5-13.5); Platelet Count 313 10^3/uL (150-450); Red Blood Count 4.22 10^6/uL (4.20-5.40); Red Cell Distribution Width 13.2 % (11.0-15.0); White Blood Count 11.7 10^3/uL (4.0-11.0)
[2024-04-23 06:39] LABS: Amphetamine Screen Urine NEGATIVE (NEGATIVE); Barbiturates Screen Urine NEGATIVE (NEGATIVE); Benzodiazepines Screen Urine NEGATIVE (NEGATIVE); Buprenorphine Screen Urine NEGATIVE (NEGATIVE); Cannabinoid Screen Urine NEGATIVE (NEGATIVE); Cocaine Screen Urine NEGATIVE (NEGATIVE); Methadone Screen Urine NEGATIVE (NEGATIVE); Methamphetamines Screen Urine NEGATIVE (NEGATIVE); Opiate Screen Urine NEGATIVE (NEGATIVE); Oxycodone Screen Urine NEGATIVE (NEGATIVE); Phencyclidine Screen Urine NEGATIVE (NEGATIVE); Tricyclic Antidepressant Urine NEGATIVE (NEGATIVE)
--- NOTE | 2024-04-23 10:39 | PM.OBHP ---
OB - H&P: HPI History of Present Illness Chief complaint: INDUCTION : 2 Para: 1 Gestational age based on last menstrual period: 39.3 weeks gestation History of Present Dating criteria: LMP confirmed by 1st trimester US Medical complications OB: none Labs Blood type: O (+) positive Rubella: immune RPR/VDLR: nonreactive GBS status: negative HBsAG: negative Review of Systems ROS feels contractions, on 14 miu of pitocin Status of ROS: 10 or more systems reviewed and unremarkable except as noted in history and below PFSH PFSH Family History Grandmother Family history of cancer Mother Family history of hypertension Syncopal episodes Social History Highest level of school completed/degree received: high school graduate Little interest or pleasure in doing things: not at all Feeling down, depressed, or hopeless: not at all Meds Home Medications and Allergies Home Medications ?Medication ?Instructions ?Recorded ?Confirmed ?Type valacyclovir 500 mg tablet mg 04/23/24 History Allergies Allergy/AdvReac Type Severity Reaction Status Date / Time No Known Drug Allergies Allergy Verified 06/13/23 22:24 Exam Constitutional Vital Signs, click to edit/add: Last Vital Signs Temp 97.7 F 04/23/24 09:40 Pulse 82 04/23/24 09:53 Resp 16 04/23/24 09:40 BP 117/68 04/23/24 09:53 Documenting provider has reviewed patient's vital signs: yes Common normals: no apparent distress, average body habitus, oriented x3, no limitations, healthy appearing, alert and well nourished [facility] Common normals: normocephalic and head/scalp atraumatic Eye Common normals: PERRL Pupil: accommodation reflex normal Neck & C-Spine Common normals: full ROM and supple Respiratory Common normals: normal respiratory effort Auscultation: clear to auscultation bilaterally Cardio Common normals: regular rate and regular rhythm GI Common normals: Normal to inspection, nondistended, normoactive bowel sounds present, soft to palpation and non-tender Common normals: no CVA tenderness Back & Pelvis Common normals: no thoracic nor lumbar tenderness Extremity Common normals: normal to inspection and full ROM Neuro Common normals: CN's II-XII intact bilaterally, moves all extremities, no focal motor deficits and no sensory deficits noted Motor exam: strength 5/5 throughout Psych Common normals: mental status grossly normal, thought process normal, cooperative and affect normal Results Labs Labs: Short CBC 04/23/24 Range/Units 05:50 WBC 11.7 H (4.0-11.0) 10^3/uL Hgb 12.8 (12.0-16.0) g/dL Hct 37.6 (36.0-48.0) % Plt Count 313 (150-450) 10^3/uL OB - A/P Assessment and Plan (1) : Assessment and Plan: elective induction and 39.3 weeks, no maternal or obstetrical issues, GBS negative, good care, does not want epidural, CAT I tracing, on pitocin currently at 14 miu and brittany cervix 1 cm/50%/ 0 station soft and midposition/vertex Qualifiers: Weeks of gestation: 39 weeks Qualified Code(s): Z3A.39 - 39 weeks gestation of Plan AROM done, clear fluid. anticipate normal vaginal delivery
[2024-04-23] MEDS: NALBUPHINE HCL 10 MG/ML AMPULE IV (14:50)
[2024-04-23] MEDS: 0.9 % SODIUM CHLORIDE 1,000 ML 1000 ML IV (16:21)
[2024-04-23] MEDS: ROPIVACAINE HCL/PF 400 MG/200 ML PREMIX 6 MG EPIDURAL (17:13)
--- NOTE | 2024-04-23 19:19 | PC.NURSE ---
clear urine with sm particles of bloods noted.
--- NOTE | 2024-04-23 19:36 | W.PC.ACHO ---
Registration Status: ADM IN Primary Language: Preferred Language: Tajik Report given to Dimas CHOPRA at 1915. Care relinquished. Active Medications Generic Name Dose Route Start Last Admin Trade Name Freq PRN Reason Stop Dose Admin Carboprost Tromethamine 250 mcg 04/23/24 05:16 Carboprost Tromethamine 250 Mcg/Ml 1 Ml Vial IM 04/25/24 05:16 Q15M PRN Bleeding Diphenhydramine HCl 25 mg 04/23/24 14:57 Diphenhydramine Hcl 50 Mg/Ml Vial IV 04/24/24 14:57 Q6H PRN Itching Ephedrine Sulfate 5 mg 04/23/24 14:57 Ephedrine Sulfate 50 Mg/Ml Vial IV 04/24/24 14:57 Q5M PRN Blood Pressure - Low Tranexamic Acid 1,000 mg/ 110 mls @ 440 mls/hr 04/23/24 05:16 Sodium Chloride IV 04/25/24 05:16 ONCE PRN Uterine Bleeding Sodium Chloride 1,000 mls @ 125 mls/hr 04/23/24 05:30 04/23/24 18:44 Sodium Chloride 0.9% 1,000 Ml IV 125 mls/hr .Q8H ELIDA Administration Oxytocin/Sodium Chloride 10 units in 500 mls @ 6 mls/hr 04/23/24 05:30 04/23/24 19:30 Pitocin 10 Unit/500 Ml-Ns IV 10 milliunit/min TITR ELIDA 30 mls/hr Infusion Protocol 2 MILLIUNIT/MIN Oxytocin/Sodium Chloride 20 units in 1,000 mls @ 125 mls/hr 04/23/24 05:16 Pitocin 20 Unit/1,000 Ml-Ns IV Q8H PRN POST DELIVERY Ropivacaine/Sodium Chloride 400 mg in 200 mls @ 6 mls/hr 04/23/24 15:00 04/23/24 17:13 Naropin 0.2% 400 Mg/200 Ml Bag EPIDURAL 6 mls/hr Q24H ELIDA Administration Lidocaine 5 ml 04/23/24 05:16 Lidocaine Viscous 2% 15 Ml Solution TOPICAL 04/25/24 05:18 ONCE PRN Pain Lidocaine 1 ml 04/23/24 05:16 Lidocaine Hcl 1% 200 Mg/20 Ml Mdv INJ 04/25/24 05:18 ONCE PRN Pain Methylergonovine Maleate 0.2 mg 04/23/24 05:16 Methylergonovine Maleate 0.2 Mg/Ml Ampule IM 04/25/24 05:16 ONCE PRN Uterine Contractility/Contract Methylergonovine Maleate 0.2 mg 04/23/24 05:16 Methylergonovine Maleate 0.2 Mg Tablet PO 04/25/24 05:16 Q4H PRN Uterine Contractility/Contract Misoprostol 600 mcg 04/23/24 05:16 Misoprostol 100 Mcg Tablet PO 04/25/24 05:16 ONCE PRN Uterine Bleeding Misoprostol 800 mcg 04/23/24 05:16 Misoprostol 100 Mcg Tablet SL 04/25/24 05:16 ONCE PRN Uterine Bleeding Misoprostol 1,000 mcg 04/23/24 05:16 Misoprostol 100 Mcg Tablet MN 04/25/24 05:16 ONCE PRN Uterine Bleeding Nalbuphine HCl 10 mg 04/23/24 05:16 04/23/24 14:50 Nalbuphine Hcl 10 Mg/Ml Ampule IV 10 mg Q3H PRN Administration Pain Naloxone HCl 0.4 mg 04/23/24 14:57 Naloxone Hcl 0.4 Mg/Ml Vial IV 04/24/24 14:57 ONCE PRN Respiratory Distress Ondansetron HCl 4 mg 04/23/24 05:16 Ondansetron Pf 4 Mg/2 Ml Vial IV Q6H PRN Nausea And Vomiting Ondansetron HCl 4 mg 04/23/24 05:16 Ondansetron 4 Mg Rapdis Tablet SL Q6H PRN Nausea And Vomiting Oxytocin 10 unit 04/23/24 05:16 Oxytocin 10 Unit/Ml Vial IM 04/25/24 05:16 ONCE PRN bleeding Diet Category Date Time Status Regular Consistency Diet Diet 04/23/24 05:17 Active IV Insertion/Site Date of IV Line Insertion [20g 04/23/24 right Forearm] IV Insertion Time [20g right 05:50 Forearm] Neurology Patient orientation (short person,place,time,situation list)
[2024-04-23] MEDS: OXYTOCIN/0.9 % SODIUM CHLORIDE 20 UNITS/1,000 ML PLAST..BAG 999 UNIT IV (22:24)
--- NOTE | 2024-04-23 22:26 | PM.OBPRCVD ---
Procedure Intrapartal events: None Induction method: per pitocin protocol Delivery augmentation: rupture of membranes and pitocin Delivery monitor: external FHT and external uterine Route of delivery: Episiotomy Description: none L&D Laceration Description: none Estimated blood loss (mL): 250 Anesthesia type: None Disposition: floor Delivery date: 04/23/24 Gender: female presentation: vertex Placental delivery description: Spontaneous cord description: 3 Vessels and Nuchal Cord
[2024-04-24] VITALS (7 sets, daily range): BP systolic 103–116; BP diastolic 55–62; PULSE 73–92; TEMP 35.8–37.3
[2024-04-24] MEDS: IBUPROFEN 600 MG TABLET PO ×4 (01:20→23:52)
[2024-04-24 07:35] LABS: Basophils Percent Auto 0.2 % (0.2-2.0); Eosinophils Percent Auto 0.1 % (0.9-7.0); Hematocrit 32.6 % (36.0-48.0); Hemoglobin 11.1 g/dL (12.0-16.0); Immature Granulocytes Abs Auto 0.16 10^3/uL (0.00-0.03); Immature Granulocytes Pct Auto 0.8 % (0.0-0.5); Lymphocytes Absolute Auto 1.9 10^3/uL (1.2-3.8); Lymphocytes Percent Auto 9.4 % (20.5-60.0); Mean Corpuscular Hemoglobin 30.8 pg (26.7-34.0); Mean Corpuscular Volume 90.6 fL (81.0-99.0); Mean Platelet Volume 10.5 fL (9.5-13.5); Monocytes Absolute Auto 1.2 10^3/uL (0.3-0.8); Monocytes Percent Auto 6.1 % (1.7-12.0); Neutrophils Absolute Auto 16.5 10^3/uL (1.4-6.5); Neutrophils Percent Auto 83.4 % (43.0-75.0); Platelet Count 271 10^3/uL (150-450); Red Cell Distribution Width 13.5 % (11.0-15.0); White Blood Count 19.8 10^3/uL (4.0-11.0)
--- NOTE | 2024-04-24 08:43 | PM.OBPN ---
OB - PN: Subj Subjective Patient comments: no complaints [place] status: doing well [place] feeding status: exclusively Exam Constitutional Vital Signs, click to edit/add: Last Vital Signs Temp 99.2 F 04/24/24 00:41 Pulse 86 04/24/24 00:41 Resp 16 04/23/24 19:00 BP 114/62 04/24/24 00:41 O2 Del Method Room Air 04/24/24 01:00 Common normals: no apparent distress, average body habitus, oriented x3, no limitations, healthy appearing, alert and well nourished General appearance: cooperative Orientation/consciousness: Yes awake, Yes oriented to person, Yes oriented to place and Yes oriented to time Eye Common normals: EOMs intact bilaterally General eye: normal appearance of both eyes Neck & C-Spine Common normals: full ROM Lymph Lymphatic: no lymphadenopathy noted Respiratory Common normals: normal respiratory effort Effort & inspection: able to speak in complete sentences Auscultation: clear to auscultation bilaterally Cardio Common normals: regular rate and regular rhythm Rate: regular rate Rhythm: regular rhythm GI Common normals: Normal to inspection, nondistended, normoactive bowel sounds present Inspection: normal to inspection Auscultation: normoactive bowel sounds Palpation: soft Common normals: no CVA tenderness Back & Pelvis Common normals: no CVA tenderness Neuro Common normals: oriented x3 Sensorium/orientation: awake, alert, oriented to person, oriented to place and oriented to time Psych Psychiatry clinicians, please identify where your Mental Status Exam is documented: Mental Status Exam documented in the separate MSE Attitude: calm Thought process: normal thought process Results Labs Labs: Short CBC 04/24/24 Range/Units 06:37 WBC 19.8 H (4.0-11.0) 10^3/uL Hgb 11.1 L (12.0-16.0) g/dL Hct 32.6 L (36.0-48.0) % Plt Count 271 (150-450) 10^3/uL Urinary Catheter Management Urinary Catheter Management Urethral: Cath placed during this visit: no OB - PN: A/P Assessment and Plan (1) : Qualifiers: Weeks of gestation: 39 weeks Qualified Code(s): Z3A.39 - 39 weeks gestation of Plan - Vaginal Delivery day: 1 Plan: routine care Time Spent with Patient Time: Total time spent is greater than 50% in coordination of care (as documented) at patient's floor/unit and/or counseling patient: Total time spent with greater than 50% in coordination of care (as documented) at patient's floor/unit and/or counseling patient: less than 15 minutes
[2024-04-24] MEDS: DOCUSATE SODIUM 100 MG CAPSULE PO ×2 (09:21→23:53)
[2024-04-25] MEDS: IBUPROFEN 600 MG TABLET PO (05:45)
--- NOTE | 2024-04-25 08:17 | PM.OBPN ---
OB - PN: Subj Subjective Patient comments: no complaints and pain well controlled [place] status: doing well Exam Constitutional Vital Signs, click to edit/add: Last Vital Signs Temp 98.1 F 04/24/24 23:50 Pulse 84 04/24/24 23:50 Resp 16 04/24/24 15:42 BP 103/59 04/24/24 23:50 O2 Del Method Room Air 04/24/24 23:55 Documenting provider has reviewed patient's vital signs: yes Common normals: no apparent distress Respiratory Common normals: normal respiratory effort and clear to auscultation bilaterally Cardio Common normals: regular rate and regular rhythm GI Common normals: Normal to inspection, nondistended, normoactive bowel sounds present Extremity Common normals: no clubbing, cyanosis or edema and no calf tenderness Urinary Catheter Management Urinary Catheter Management Urethral: Cath placed during this visit: no OB - PN: A/P Assessment and Plan (1) : Qualifiers: Weeks of gestation: 39 weeks Qualified Code(s): Z3A.39 - 39 weeks gestation of Plan - Vaginal Delivery day: 2 Plan: routine care, discharge home and follow up 6 weeks Time Spent with Patient Time: Total time spent is greater than 50% in coordination of care (as documented) at patient's floor/unit and/or counseling patient: Total time spent with greater than 50% in coordination of care (as documented) at patient's floor/unit and/or counseling patient: less than 15 minutes
[2024-04-25 08:50] VITALS: TEMP 36.4
[2024-04-25 09:01] VITALS: BP 110/65; PULSE 69
[2024-04-25] MEDS: VALACYCLOVIR HCL 500 MG TABLET PO (09:15)
[2024-04-25] MEDS: DOCUSATE SODIUM 100 MG CAPSULE PO (09:15)
== END 2024-04-25 11:50 | disposition home or self-care (01) | DRG 806 ==
PROVIDERS: Admitting Provider Obstetrics & Gynecology; Visit Provider Obstetrics & Gynecology
DX: O69.81X0 Labor and delivery complicated by cord around neck, without compression, not applicable or unspecified (principal); O98.52 Other viral diseases complicating childbirth; Z37.0 Single live birth; Z3A.39 39 weeks gestation of pregnancy; B00.9 Herpesviral infection, unspecified
CPT/HCPCS: 36415; 59050; 59410; 80307; 85025; 85027; 86850; 86900; 86901; J2300; J2795

== ENCOUNTER 2024-04-26 10:14 | Outpatient (OUT) | payer BC, SELFPAY ==
--- OUTSIDE RECORDS SUMMARY | 2024-04-26 10:30 | XMS_ITS | CCD ---
Author Organization [facility] Care Team Providers Care Audio Production Manager Name Role Phone NONE, XXXX Primary [...] day(s), # 10 cap(s), Refills(s) 0, Pharmacy: [facility]/pharmacy #[id number], 160, cm, 07/11/24 5:34:00 EDT, Height/Length Dosing, 72.4, kg, 09/22/23 5:34:00 EDT, Weight Dosing Start Date: 09/22/23 Stop Date: 09/27/23 Status: Ordered citalopram 20 mg oral tablet (4 sources) Serotonin Reuptake Inhibitor Start: 03-12-2019 take 1 tablet by mouth once daily citalopram 20 mg Tab TAKE 1 TABLET BY MOUTH EVERY DAY Start Date: 03/12/19 Status: Ordered 21 day ethinyl estradiol 0.038816 mg/hr / etonogestrel 0.005 mg/hr vaginal system [...] needed for nausea or vomiting. Active Pnv #10-Lpat-Khtwb Acid-Omega3 (1 source) Start: 12-08-2023 Pnv #47-Rpra-Lozka Acid-Omega3 Active CAP PO December 08, 2023 12:00am predniSONE 20 mg oral tablet (1 source) Start: 07-07-2022 End: 07-12-2022 take 2 tablets by mouth once daily predniSONE 20 mg Tab 40 mg = 2 tab(s), Oral, Daily, X 5 day(s), # 10 tab(s), Refills(s) 0, Pharmacy: [facility]/pharmacy #[id number], 160, cm, 07/07/22 9:38:00 EDT, [...] nausea/vomiting, # 12 tab(s), Refills(s) 0, Pharmacy: [facility]/pharmacy #[id number], 160, cm, 09/22/23 5:34:00 EDT, [...] venlafaxine 37.5 mg extended release oral capsule (14 sources) Serotonin and Norepinephrine Reuptake Inhibitor Start: 03-27-2024 End: 04-23-2025 take 1 capsule by mouth once daily venlafaxine XR (Effexor XR) 37.5 MG 24 hr capsule Indications: Mood disorder (CMS/HCC) Take 1 capsule (37.5 mg) by mouth Daily Do not crush or chew. 90 capsule 3 04/23/2024 04/23/2025 Active Completed/Discontinued Medications Medication Drug Class(es) Dates [...] Test Name Value Interpretation Reference Range Facility ALL CBC WITH AUTO DIFFon BASOPHILS ABSOLUTE AUTO 0 N [facility] Basophils/100 WBC (Bld) 0.2 % 0.2 - 2.0 % [facility] Eosinophils/100 WBC (Bld) 0.1 % Low 0.9 - 7.0 % [facility] Erythrocyte distribution width (RBC) [Ratio] 13.5 % 11.0 - 15.0 % [facility] Hematocrit (Bld) [Volume fraction] 32.6 % Low 36.0 - 48.0 % [facility] Hemoglobin (Bld) [Mass/Vol] 11.1 g/dL Low 12.0 - 16.0 g/dL [facility] IMMATURE GRANULOCYTES ABS AUTO 0.16 High [facility] Immature granulocytes/100 WBC (Bld) 0.8 % High 0.0 - 0.5 % [facility] Interpretation and review of laboratory results Abnormal [facility] LYMPHOCYTES ABSOLUTE AUTO 1.9 [facility] Lymphocytes/100 WBC (Bld) 9.4 % Low 20 .5 - 60.0 % [facility] MCH (RBC) [Entitic mass] 30.8 pg 26. 7 - 34.0 pg [facility] MCHC (RBC) [Mass/Vol] 34 g/dL 29.9 - 35.2 g/dL [facility] MCV (RBC) [Entitic vol] 90.6 fL 81.0 - 99.0 fL [facility] MONOCYTES ABSOLUTE AUTO 1.2 High N [facility] Monocytes/100 WBC (Bld) 6.1 % 1.7 - 12.0 % [facility] NEUTROPHILS ABSOLUTE AUTO 16.5 High [facility] Neutrophils/100 WBC (Bld) 83.4 % High 43 .0 - 75.0 % [facility] Platelet mean volume (Bld) [Entitic vol] 10.5 fL 9.5 - 13.5 fL [facility] TBH EO # 0 [facility] TBH PLT 271 [facility] TB RBC 3.6 Low [facility] TBH WBC 19.8 High [facility] HMHP CBC WITH PLATELET NO DI FFERENTIALon 04-23-2024 Erythrocyte distribution width (RBC) [Ratio] 13.2 % 11.0 - 15.0 % [facility] Hematocrit (Bld) [Volume fraction] 37.6 % 36.0 - 48.0 % [facility] Hemoglobin (Bld) [Mass/Vol] 12.8 g/dL 12.0 - 16.0 g/dL [facility] Interpretation and review of laboratory results Abnormal [facility] MCH (RBC) [Entitic mass] 30.3 pg 26. 7 - 34.0 pg [facility] MCHC (RBC) [Mass/Vol] 34 g/dL 29.9 - 35.2 g/dL [facility] MCV (RBC) [Entitic vol] 89.1 fL 81.0 - 99.0 fL [facility] Platelet mean volume (Bld) [Entitic vol] 9.9 fL 9.5 - 13.5 fL [facility] TB PLT [address] [facility] RBC 4.[address] [facility] WBC 11.7 High [facility] DRUG SCREEN RAPID (URINE )on 04-23-2024 AMPHETAMINE SCREEN URINE Negative NEGATIVE [facility] BARBITURATES SCREEN URINE Negative NEGATIVE [facility] BENZODIAZEPINES SCREEN URINE Negative NEGATIVE [facility] BUPRENORPHINE SCREEN URINE Negative NEGATIVE [facility] Comment on above: DRUG CLASS TEST SYST EM CUT-OFF CONCENTRATIONS ARE FOLLOWS: AMP (Amphetamine): 500 ng/mL BAR (Barbiturates): 200 ng/mL BZO (Benzodiazepines): 150 ng/mL BUP (Buprenorphine): 10 ng/mL OZZIE (Cocaine): 150 ng/mL mAMP (Methamphetamine): 500 ng/mL MTD (Methadone): 200 ng/mL OPI (Opiates): 100 ng/mL OXY (Oxycodone): 100 ng/mL PCP (Phencyclidine): 25 ng/mL THC (Cannabinoids): 50 ng/mL TCA (Trycyclic Antidepressants): 300 ng/mL CANNABINOID SCREEN URINE Negative NEGATIVE [facility] COCAINE SCREEN URINE Negative NEGATIVE [facility] METHADONE SCREEN URINE Negative NEGATIVE NO [facility] METHAMPHETAMINES SCREEN URINE Negative NEGATIVE [facility] OPIATE SCREEN URINE Negative NEGATIVE [facility] OXYCODONE SCREEN URINE Negative NEGATIVE NO [facility] PHENCYCLIDINE SCREEN URINE Negative NEGATIVE [facility] TRICYCLIC ANTIDEPRESSANT URINE Negative NEGATIVE [facility] US OB FOLLOW UP TRANSABDOMIN AL APPROACHon [...] 3287 gm / 7 lbs, 3 oz (8276-0484 gm) [place] Normal: 3293 gm (5516-7389 gm) [place] Wt%: 49% for 38.3 wks [...] UA Negative Negative - 4(70) +++ mg/dL [facility] Blood, UA Negative Negative - 50 Raul/mcL [facility] Clarity, UA Clear [facility] Color, UA Yellow [facility] Glucose, UA Negative Negative - 1999(110) ++++ mg/dL [facility] Interpretation and review of laboratory results Normal [facility] Ketones, UA Negative Negative - 160(16) ++++ mg/dL [facility] Leukocytes, UA Negative Negative - 500+++ Anitra/mcL [facility] Nitrite, UA Negative Negative - Positive [facility] pH, UA 6 5 - 9 [facility] Protein, UA Negative Negative - 2000(20) ++++ mg/dL [facility] Spec Grav, UA 1.025 1 - 1.03 [facility] Urobilinogen, UA 0.2 0.2 - 12 mg/dL [facility] ALL MISCELLANEOUS TESTon MISCELLANEOUS TEST COMMENT . [facility] Comment on above: Test Ordered: [id number] Strep Gp B Culture+Rflx Strep Gp B Culture+Rflx Negative CB Reference Range: Negative Centers for Disease Control and Prevention (CDC) and [place] [employer] (ACOG) guidelines [...] resistance to clindamycin is noted. Performed at: [facility] [id number] Flying Ii Instructor: Quintin Rosen PhD, Phone: [phone] GROUP B STREP [id number] Group B Streptococcus Colonization Detection Culture With Re [facility] Urinalysis macro (dipstick) panel (U)on 04-03-2024 Bilirubin, UA Negative Negative - 4(70) +++ mg/dL [facility] Blood, UA Negative Negative - 50 Raul/mcL [facility] Clarity, UA Clear [facility] Color, UA Yellow [facility] Glucose, UA Negative Negative - 1999(110) ++++ mg/dL [facility] Interpretation and review of laboratory results Abnormal [facility] Ketones, UA Positive Negative - 160(16) ++++ mg/dL [facility] Leukocytes, UA Negative Negative - 500+++ Anitra/mcL [facility] Nitrite, UA Negative Negative - Positive [facility] pH, UA 5.5 5 - 9 [facility] Protein, UA Trace Negative - 2000(20) ++++ mg/dL [facility] Spec Grav, UA 1.03 1 - 1.03 [facility] Urobilinogen, UA 0.2 0.2 - 12 mg/dL [facility] Urinalysis macro (dipstick) panel (U)on 03-27-2024 Bilirubin, UA Negative Negative - 4(70) +++ mg/dL [facility] Blood, UA Negative Negative - 50 Raul/mcL [facility] Clarity, UA Clear [facility] Color, UA Yellow [facility] Glucose, UA Negative Negative - 1999(110) ++++ mg/dL [facility] Interpretation and review of laboratory results Abnormal [facility] Ketones, UA Positive Negative - 160(16) ++++ mg/dL [facility] Leukocytes, UA Negative Negative - 500+++ Anitra/mcL [facility] Nitrite, UA Negative Negative - Positive [facility] pH, UA 5.5 5 - 9 [facility] Protein, UA Negative Negative - 1999(20) ++++ mg/dL [facility] Spec Grav, UA 1.03 1 - 1.03 [facility] Urobilinogen, UA 0.2 0.2 - 12 mg/dL [facility] TBH UA (CLEAN/CATCH) PEOPLESOFT/JENNY RO IF IND.on 03-23-2024 BILIRUBIN URINE Negative NEGATIVE [facility] BLOOD URINE Negative NEGATIVE [facility] Clarity (U) SL CLOUDY CLEAR [facility] Color (U) LT. YELLOW YELLOW [facility] GLUCOSE URINE UA Negative NEGATIVE mg/dL [facility] Ketones Ql (U) Negative NEGATIVE mg/dL [facility] Leukocyte esterase Test strip Ql (U) Negative NEGATIVE [facility] NITRITE URINE Negative NEGATIVE [facility] pH (U) 6.0 [pH] 5.0 - 9.0 [facility] PROTEIN URINE Negative NEG/TRACE mg/dL [facility] SPECIFIC GRAVITY URINE 1.025 1.005 - 1.025 [facility] URINE MICROSCOPIC INDICATED NO [facility] UROBILINOGEN URINE 0.2 EU/dL 0.2 - 1.0 EU/dL [facility] Urinalysis macro (dipstick) panel (U)on 03-12-2024 Bilirubin, UA Negative Negative - 4(70) +++ mg/dL [facility] Blood, UA Not detected Negative - 50 Raul/mcL [facility] Clarity, UA Clear [facility] Color, UA Yellow [facility] Glucose, UA Negative Negative - 1999(110) ++++ mg/dL [facility] Interpretation and review of laboratory results Abnormal [facility] Ketones, UA Negative Negative - 160(16) ++++ mg/dL [facility] Leukocytes, UA Negative Negative - 500+++ Anitra/mcL [facility] Nitrite, UA Negative Negative - Positive [facility] pH, UA 6 5 - 9 [facility] Protein, UA Trace Negative - 1999(20) ++++ mg/dL [facility] Spec Grav, UA 1.03 1 - 1.03 [facility] Urobilinogen, UA 0.2 0.2 - 12 mg/dL [facility] Urinalysis macro (dipstick) panel (U)on 02-08-2024 Bilirubin, UA Negative Negative - 4(70) +++ mg/dL [facility] Blood, UA Negative Negative - 50 Raul/mcL [facility] Clarity, UA Clear [facility] Color, UA Yellow [facility] Glucose, UA Negative Negative - 1999(110) ++++ mg/dL [facility] Interpretation and review of laboratory results Abnormal [facility] Ketones, UA Positive Negative - 160(16) ++++ mg/dL [facility] Comment on above: trace Leukocytes, UA Negative Negative - 500+++ Anitra/mcL [facility] Nitrite, UA Negative Negative - Positive [facility] pH, UA 6 5 - 9 [facility] Protein, UA Negative Negative - 1999(20) ++++ mg/dL [facility] Spec Grav, UA 1.03 1 - 1.03 [facility] Urobilinogen, UA 0.2 0.2 - 12 mg/dL [facility] GLUCOSE TOLERANCE 3 HOURon 04-02-2023 GLUCOSE TOLERANCE 3 HOUR mg/dL [facility] Comment on above: GLU FAST 88 (<95) Co l: 02/01/24 1310 GLU 1HR 177 (<180) Col: 02/01/24 1412 GLU 2HR 131 (<155) Col: 02/01/24 1512 GLU 3HR 106 (<140) Col: 02/01/24 1612 [facility] ALL CBC WITH AUTO DIFFon BASOPHILS ABSOLUTE AUTO 0 N [facility] Basophils/100 WBC (Bld) 0.2 % 0.2 - 2.0 % [facility] Eosinophils/100 WBC (Bld) 0.8 % Low 0.9 - 7.0 % [facility] Erythrocyte distribution width (RBC) [Ratio] 12.4 % 11.0 - 15.0 % [facility] Hematocrit (Bld) [Volume fraction] 34.2 % Low 36.0 - 48.0 % [facility] Hemoglobin (Bld) [Mass/Vol] 11.7 g/dL Low 12.0 - 16.0 g/dL [facility] IMMATURE GRANULOCYTES ABS AUTO 0.2 High [facility] Immature granulocytes/100 WBC (Bld) 1.5 % High 0.0 - 0.5 % [facility] LYMPHOCYTES ABSOLUTE AUTO 2.7 [facility] Lymphocytes/100 WBC (Bld) 20.2 % Low 20 .5 - 60.0 % [facility] MCH (RBC) [Entitic mass] 31.4 pg 26. 7 - 34.0 pg [facility] MCHC (RBC) [Mass/Vol] 34.2 g/dL 29.9 - 35.2 g/dL [facility] MCV (RBC) [Entitic vol] 91.7 fL 81.0 - 99.0 fL [facility] MONOCYTES ABSOLUTE AUTO 0.8 N [facility] Monocytes/100 WBC (Bld) 6.2 % 1.7 - 12.0 % [facility] NEUTROPHILS ABSOLUTE AUTO 9.4 High [facility] Neutrophils/100 WBC (Bld) 71.1 % 43 .0 - 75.0 % [facility] Platelet mean volume (Bld) [Entitic vol] 9 fL Low 9.5 - 13.5 fL [facility] TBH EO # 0.1 [facility] TBH PLT [address] [facility] RBC 3.[address] [facility] WBC 13.2 High [facility] GLUCOSE 1 HOURon 01-28-2024 Glucose [Mass/Vol] 140 mg/dL High NINF - 13 0 mg/dL [facility] No Panel Informationon 01-27 Interpretation and review of laboratory results Abnormal [facility] Urinalysis macro (dipstick) panel (U)on 01-11-2024 Bilirubin, UA Negative Negative - 4(70) +++ mg/dL [facility] Blood, UA Negative Negative - 50 Raul/mcL [facility] Clarity, UA Clear [facility] Color, UA Yellow [facility] Glucose, UA Negative Negative - 2000(110) ++++ mg/dL [facility] Interpretation and review of laboratory results Normal [facility] Ketones, UA Negative Negative - 160(16) ++++ mg/dL [facility] Leukocytes, UA Negative Negative - 500+++ Anitra/mcL [facility] Nitrite, UA Negative Negative - Positive [facility] pH, UA 55 5 - 9 [facility] Protein, UA Negative Negative - 1999(20) ++++ mg/dL [facility] Spec Grav, UA 1.02 1 - 1.03 [facility] Urobilinogen, UA 1.0 0.2 - 12 mg/dL [facility] Urinalysis macro (dipstick) panel (U)on 12-14-2023 Bilirubin, UA Negative Negative - 4(70) +++ mg/dL [facility] Blood, UA Negative Negative - 50 Raul/mcL [facility] Clarity, UA Clear [facility] Color, UA Yellow [facility] Glucose, UA Negative Negative - 1999(110) ++++ mg/dL [facility] Interpretation and review of laboratory results Normal [facility] Ketones, UA Negative Negative - 160(16) ++++ mg/dL [facility] Leukocytes, UA Negative Negative - 500+++ Anitra/mcL [facility] Nitrite, UA Negative Negative - Positive [facility] pH, UA 5.5 5 - 9 [facility] Protein, UA Negative Negative - 1999(20) ++++ mg/dL [facility] Spec Grav, UA 1.025 1 - 1.03 [facility] Urobilinogen, UA 0.2 0.2 - 12 mg/dL [facility] No Panel InformationOrdered By: Christopher Ma on 12-08-2023 Quick Strep (POC) [facility] IGP,APTIMA HPV,AGE GDLNon AGE GDLN ACOG TESTING Note . [facility] Comment on above: TESTS RESULT FLAG UN ITS REF RANGE LAB Clinician Provided Cytology Information Source.............Cervix No. of containers..01 ThinPrep Vial Age Algo ACOG Radha... FLAG LEGEND: L-Low Normal,H-High Normal,LL-Alert Low,HH-Alert High <-Panic Low,>-Panic High,A-Abnormal,AA-Critical Abnormal Performed at: 01 =G [facility] [address] [place] [address] Luz Marina Swann MD, IGP, RFX APTIMA HPV ASCU Note . [facility] Comment on above: TESTS RESULT FLAG UN ITS REF RANGE LAB DIAGNOSIS: 02 NEGATIVE FOR INTRAEPITHELIAL LESION OR MALIGNANCY. Specimen adequacy: 02 Satisfactory for evaluation. No endocervical component is identified. Performed by: Quentin Paige, Electrical And Instrumentation Mechanic ([facility]) . 02 Note: Note 02 The [...] <-Panic Low,>-Panic High,A-Abnormal,AA-Critical Abnormal Performed at: [address] [address] Luz Marina Swann MD, Performed at: =[facility] [id number] Flying I[employer] Instructor: Luz Marina Swann MD, Phone: [phone] Performed at: [address] [id number] Flying Ii Instructor: Luz Marina Swann MD, Phone: [phone] SPATULA-ALONE CERVIX [facility] Healthcare URETHRITIS/DISCHARGE PLUS VA GINITIS (HTRX)on 11-19-2023 ATOPOBIUM VAGINAE 30.582 Abnormal [facility] Healthcare ATOPOBIUM VAGINAE Detected Abnormal [facility] [...] detected N [facility] NEISSERIA GONORRHOEAE 0.000 [facility] NEISSERIA GONORRHOEAE Not detected N [facility] TET B, TET M 23.652 Abnormal [facility] TET B, TET M Detected Abnormal [facility] TRICHOMONAS VAGINALIS 0.000 [facility] TRICHOMONAS VAGINALIS Not detected N [facility] Urinalysis macro (dipstick) panel (U)on 11-16-2023 Bilirubin, UA Positive Negative - 4(70) +++ mg/dL [facility] Comment on above: small Blood, UA Negative Negative - 50 Raul/mcL [facility] Clarity, UA Clear [facility] Color, UA Yellow [facility] Glucose, UA Negative Negative - 2000(110) ++++ mg/dL [facility] Interpretation and review of laboratory results Normal [facility] Ketones, UA Positive Negative - 160(16) ++++ mg/dL [facility] Comment on above: trace Leukocytes, UA Negative Negative - 500+++ Anitra/mcL [facility] Nitrite, UA Negative Negative - Positive [facility] pH, UA 5.5 5 - 9 [facility] Protein, UA Negative Negative - 2000(20) ++++ mg/dL [facility] Spec Grav, UA 1.030 1 - 1.03 [facility] Urobilinogen, UA 1.0 0.2 - 12 mg/dL [facility] C Urineon 09-24-2023 Bacteria identified Cx [facility] (U) Microbiology PROCEDURE: Urine Culture [R1] SOURCE: U CleanCatch BODY SITE: COLLECTED DATE/TIME: 09/22/2023 05:47 EDT RECEIVED DATE/TIME: 09/22/2023 08:16 EDT START DATE/TIME: 09/22/2023 08:16 EDT FREE TEXT SOURCE: Rodrigo Berg DO, DO, Noah S. FINAL REPORTS Final Report [] Verified Date/Time: 09/24/2023 09:48 EDT <10,000 cfu/ml Mixed skin contaminants Performing Locations R1: This test was performed at: [facility], [address] [place] [address], [phone] [phone] , [facility] Comment on above: Performed By: #### 2 [id number] #### [facility] [address] [place] [address] BMPon 09-22-2023 Anion gap [Moles/Vol] 13 mmol/L Normal 6-16 [facility] Comment on above: Performed By: #### 2 [id number] #### [facility] [address] [place] [address] Calcium [Mass/Vol] 8.9 mg/dL Normal 8.9-11.1 [facility] Comment on above: Performed By: #### 2 [id number] #### [facility] [address] [place] [address] Chloride [Moles/Vol] 103 mmol/L Normal 101-111 [facility] Comment on above: Performed By: #### 2 [id number] #### [facility] [address] [place] [address] CO2 [Moles/Vol] 21 mmol/L Normal 21-31 [facility] Comment on above: Performed By: #### 2 [id number] #### [facility] [address] [place] [address] Creatinine [Mass/Vol] 0.6 mg/dL Normal 0.5-1.3 [facility] Comment on above: Performed By: #### 2 [id number] #### [facility] [address] [place] [address] Glucose [Mass/Vol] 89 mg/dL Normal 55-199 [facility] Comment on above: Performed By: #### 2 [id number] #### [facility] [address] [place] [address] Potassium [Moles/Vol] 3.5 mmol/L Normal 3.5-5.3 [facility] Comment on above: Performed By: #### 2 [id number] #### [facility] [address] [place] [address] Sodium [Moles/Vol] 133 mmol/L Low 135-145 [facility] Comment on above: Performed By: #### 2 [id number] #### [facility] [address] [place] [address] Urea nitrogen [Mass/Vol] 5 mg/dL Normal 5-21 [facility] Comment on above: Performed By: #### 2 [id number] #### [facility] [address] [place] [address] Urea nitrogen/Creatinine [Mass ratio] 8 No Units Low 10-20 [facility] Comment on above: Performed By: #### 2 [id number] #### [facility] [address] [place] [address] CBC w/ Auto Diffon 4 Basophils/100 WBC (Bld) 0.2 % Normal 0.0-2.0 [facility] Comment on above: Performed By: #### 2 [id number] #### [facility] [address] [place] [address] Basophils/Leukocytes Auto (Bld) [Pure # fraction] 0.0 E9/L Normal 0.0-0.2 [facility] Comment on above: Performed By: #### 2 [id number] #### [facility] [address] [place] [address] Eosinophils (Bld) [#/Vol] 0.1 E9/L Normal 0.0-0.5 [facility] Comment on above: Performed By: #### 2 [id number] #### [facility] [address] [place] [address] Eosinophils/100 WBC (Bld) 0.7 % Normal 0.0-8.0 [facility] Comment on above: Performed By: #### 2 [id number] #### [facility] [address] [place] [address] Erythrocyte distribution width (RBC) [Ratio] 13.1 % Normal 10.9-14.2 [facility] Comment on above: Performed By: #### 2 [id number] #### [facility] [address] [place] [address] Hematocrit (Bld) [Volume fraction] 39.9 % Normal 34.0-46.0 [facility] Comment on above: Performed By: #### 2 [id number] #### [facility] [address] [place] [address] Hemoglobin (Bld) [Mass/Vol] 14.0 g/dL Normal 12.0-16.0 [facility] Comment on above: Performed By: #### 2 [id number] #### [facility] [address] [place] [address] Lymphocytes (Bld) [#/Vol] 1.8 E9/L Normal 1.0-4.0 [facility] Comment on above: Performed By: #### 2 [id number] #### [facility] [address] [place] [address] Lymphocytes/100 WBC (Bld) 18.5 % Normal 14.0-50.0 [facility] Comment on above: Performed By: #### 2 [id number] #### [facility] [address] [place] [address] MCH (RBC) [Entitic mass] 31.9 pg Normal 27.0-34.0 [facility] Comment on above: Performed By: #### 2 [id number] #### [facility] [address] [place] [address] MCHC (RBC) [Mass/Vol] 35.2 g/dL Normal 31.4-36.0 [facility] Comment on above: Performed By: #### 2 [id number] #### [facility] [address] [place] [address] MCV (RBC) [Entitic vol] 90.5 fL Normal 80.0-100.0 [facility] Comment on above: Performed By: #### 2 [id number] #### [facility] [address] [place] [address] Monocytes (Bld) [#/Vol] 0.5 E9/L Normal 0.2-1.0 [facility] Comment on above: Performed By: #### 2 [id number] #### [facility] [address] [place] [address] Neutrophils (Bld) [#/Vol] 7.3 E9/L Normal 2.0-7.5 [facility] Comment on above: Performed By: #### 2 [id number] #### [facility] [address] [place] [address] Neutrophils/100 WBC (Bld) 75.5 % High 36.0-75.0 [facility] Comment on above: Performed By: #### 2 [id number] #### [facility] [address] [place] [address] Platelet 415.0 E9/L Normal 150.0-500.0 [facility] Comment on above: Performed By: #### 2 [id number] #### [facility] [address] [place] [address] Platelet mean volume (Bld) [Entitic vol] 6.6 fL Normal 6.4-10.8 [facility] Comment on above: Performed By: #### 2 [id number] #### [facility] [address] [place] [address] RBC (Bld) [#/Vol] 4.4 E12/L Normal 4.3-5.9 [facility] Comment on above: Performed By: #### 2 [id number] #### [facility] [address] [place] [address] WBC corrected for nucl RBC Auto (Bld) [#/Vol] 9.7 E9/L Normal 4.0-11.0 [facility] Comment on above: Performed By: #### 2 [id number] #### [facility] [address] [place] [address] CHEMISTRYOrdered By: SYSTEM SYSTEM on 09-22-2023 Albumin [...] 2023 ED Clinical Summary ED Clinical Summary [place] [id number] ED Clinical Summary Person Information Name: SEBASTIAN ALEMAN/Marcia Age: 22 Years : 2000 Sex: Female Language: Argentine PCP: NONE, XXXX Marital Status: Single Visit [...] 09/22/2023 07:17:18 09/22/2023 07:17:18 09/22/2023 07:17:18 ADDRESS: [address] [place] [id number] PHYS DOC NOTES: MEDICAL INFORMATION: Prescriptions Given: New Medications [facility]/pharmacy #[id number], [address], [place] [id number], [phone] cephalexin (Keflex 500 mg Cap) 1 Capsules [...] Bacteriuria Follow up: With: Address: When: Bakari CAIZIO [facility], [address] [place] [address] [place] [address] Care Team Connect (1) In 3 days 09/25/2023 DIAGNOSIS: Asymptomatic bacteriuria during ; Bacteriuria; Nausea and vomiting during Normal [facility] ED Note-Physicianon 09-22-19 ED Note-Physician ED Note-Physician Basic Information Time Seen: Morena Floraah Johnie 09/22/2023 05:27 Chief Complaint Pt arrives from [...] that she was prescribed Zofran by her POULTRY INSEMINATOR but is still having nausea and vomiting [...] and Complexity of Problems Differential Diagnosis: [] MDM Data External documents reviewed: N/A My EKG [...] follow-up close with Dr. Proctor her established POULTRY INSEMINATOR. Shared decision making: As above Code status: N/A Assessment/Plan Asymptomatic bacteriuria during (O99.891: Other specified diseases and conditions complicating ) Bacteriuria (R82.71: Bacteriuria) Nausea and vomiting during (O21.9: Vomiting of , unspecified) Orders: cephalexin, 500 mg = 1 cap(s), Oral, q12hr, X 5 day(s), # 10 cap(s), Refills(s) 0, Pharmacy: [facility]/pharmacy #[id number], 160, cm, 09/22/23 5:34:00 EDT, Height/Length Dosing, 72.4, kg, 09/22/23 5:34:00 EDT, Weight Dosing Lactated Ringers Injection, 1,000 mL, Soln-IV, IV, Once, Stop date 09/22/23 5:38:00 EDT, STAT, Start date 09/22/23 5:38:00 EDT, mL/hr, Infuse over 61, minute(s) promethazine, 12.5 mg = 1 tab(s), Oral, q8hr, PRN as needed for nausea/vomiting, # 12 tab(s), Refills(s) 0, Pharmacy: [facility]/pharmacy #[id number], 160, cm, 09/22/23 5:34:00 EDT, [...] Cult Rflx Urine Culture Medications Administered Given [id number] [F], 1000 mL, IV Sodium Chloride 0.9% IV Kaylyn 50 mL [F] 50 mL + [id number] [F] 12.5 mg, IV Piggyback Disposition Plan Discharge Prescription List Prescriptions Keflex 500 mg Cap, 500 mg= 1 cap(s), Oral, q12hr promethazine 12.5 mg oral tablet, 12.5 mg= 1 tab(s), Oral, q8hr, PRN Follow-up With When Contact Information Bakari PROCTOR In 3 days 09/25/[address] , [place] [address]- Business (1) Additional Instructions: Patient Education Morning Sickness Asymptomatic Bacteriuria Problem List/Past Medical History Ongoing Anxiety History of cold sores Right otitis media Historical Denies Depression Procedure/Surgical History None. Medications Inpatient LR 1000 mL Bolus, 1000 mL, IV, Once promethazine additive 12.5 mg + Sodium Chloride 0.9% IV Kaylyn 50 (more content not included)... Normal [facility] Comment on above: Result Comment: Elec tronically Signed By: Rodrigo Berg DO\.br\Date and Time Signed: 09/22/23 06:44 EDT ED Patient Summaryon 024 ED Patient Summary ED Patient Summary [address] [address] Patient Discharge Instructions Person Information Name: SEBASTIAN ALMEAN Age: 22 Years Arrival Date: 09/22/2023 05:24:18 Discharge Diagnosis: Asymptomatic bacteriuria during ; Bacteriuria; Nausea and vomiting during Primary Care Physician: NONE, XXXX Provider Information Primary Provider: Rodrigo Berg DO Advanced Building Cleaner:None The exam and treatment you received in the Emergency Department were for an urgent problem and are not intended as complete care. 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 If your symptoms [...] Follow-up Instructions: With: Address: When: Bakari PROCTOR [facility], [address] [place] [address] , [place] [address] Business (1) In 3 days 09/25/2023 In the event that this physician does not participate in your insurance network, please consult with your insurance company to find a nearby participating provider. Patient Education Materials: Morning Sickness; Asymptomatic Bacteriuria A MESSAGE TO ALL PATIENTS REGARDING OPIOIDS PRESCRIPTION OPIOIDS: WHAT YOU NEED TO KNOW Prescription opioids can be used to help relieve [id number] pain and are often prescribed following a [...] tell y (more content not included)... Normal [facility] HEMATOLOGYOrdered By: SYSTEM SYSTEM on [...] 09-22-2023 Albumin [Mass/Vol] 4.2 g/dL Normal 3.3-5.0 [facility] Comment on above: Performed By: #### 2 [id number] #### [facility] [address] [place] [address] Albumin/Globulin (S) [Mass conc ratio] 1.3 Normal 1.1-2.2 [facility] Comment on above: Performed By: #### 2 [id number] #### [facility] [address] [place] [address] ALP [Catalytic activity/Vol] 68 Int._Unit/L Normal 21-98 [facility] Comment on above: Performed By: #### 2 [id number] #### [facility] [address] [place] [address] ALT No additional P-5'-P [Catalytic activity/Vol] 18 Int._Unit/L Normal 6-46 [facility] Comment on above: Performed By: #### 2 [id number] #### [facility] [address] [place] [address] AST [Catalytic activity/Vol] 17 Int._Unit/L Normal 5-43 [facility] Comment on above: Performed By: #### 2 [id number] #### [facility] [address] [place] [address] Bilirubin [Mass/Vol] 0.5 mg/dL Normal 0.0-1.1 [facility] Comment on above: Performed By: #### 2 [id number] #### [facility] [address] [place] [address] Bilirubin.direct [Mass/Vol] 0.1 mg/dL Normal 0.0-0.4 [facility] Comment on above: Performed By: #### 2 [id number] #### [facility] [address] [place] [address] Bilirubin.indirect [Mass or moles/Vol] 0.4 mg/dL Normal 0.1-0.9 [facility] Comment on above: Performed By: #### 2 [id number] #### [facility] [address] [place] [address] Globulin (S) [Mass/Vol] 3.2 g/dL Normal 1.4-4.0 [facility] Comment on above: Performed By: #### 2 [id number] #### [facility] [address] [place] [address] Protein [Mass/Vol] 7.4 g/dL Normal 6.0-7.8 [facility] Comment on above: Performed By: #### 2 [id number] #### [facility] [address] [place] [address] Lipase Levelon 09-22-2023 Lipase [Catalytic activity/Vol] 30 U/L Normal 13-58 [facility] Comment on above: Performed By: #### 2 [id number] #### [facility] [address] [place] [address] UA with Cult Rflxon 09-22-19 24 Bacteria Auto Ql (U) 2+ /HPF Abnormal Trace Fish er [facility] Comment on above: Performed By: #### 4 [id number] #### [facility] [address] [place] [address] Bilirubin Ql (U) Negative Normal Negative [facility] Comment on above: Performed By: #### 4 [id number] #### [facility] [address] [place] [address] Clarity (U) Ex.Turbid Abnormal Clear [facility] Comment on above: Performed By: #### 4 [id number] #### [facility] [address] [place] [address] Color (U) Yellow Normal Yellow [facility] Comment on above: Result Comment: Micr oscopic readings are only performed on those samples that meet specific criteria set forth by [facility]. Performed By: #### 4 [id number] #### [facility] [address] [place] [address] Epithelial cells.squamous Auto (Urine sed) [#/Area] >10 Invalid Interpretation Code [facility] Comment on above: Performed By: #### 4 [id number] #### [facility] [address] [place] [address] Glucose Ql (U) Negative Normal Negative [facility] Comment on above: Performed By: #### 4 [id number] #### [facility] [address] [place] [address] Hemoglobin Auto test strip (U) [Mass/Vol] Negative Normal Negative [facility] Comment on above: Performed By: #### 4 [id number] #### [facility] [address] [place] [address] Ketones Auto test strip Ql (U) 4+ mg/dL Abnormal Negative [facility] Comment on above: Performed By: #### 4 [id number] #### [facility] [address] [place] [address] Leukocyte esterase Auto test strip Ql (U) 250 Anitra/uL Abnormal Negative [facility] Comment on above: Performed By: #### 4 [id number] #### [facility] [address] [place] [address] Mucus Auto Ql (U) 3+ Abnormal Negative [facility] Comment on above: Performed By: #### 4 [id number] #### [facility] [address] [place] [address] Nitrite Auto test strip Ql (U) Negative Normal Negative [facility] Comment on above: Performed By: #### 4 [id number] #### [facility] [address] [place] [address] pH (U) 6.0 [pH] Invalid Interpretation Code 5.0-9.0 [facility] Comment on above: Performed By: #### 4 [id number] #### [facility] [address] [place] [address] Protein Ql (U) Trace Abnormal Negative [facility] Comment on above: Performed By: #### 4 [id number] #### [facility] [address] [place] [address] Specific gravity (U) [Rel density] 1.023 Invalid Interpretation Code 1.005-1.030 [facility] Comment on above: Performed By: #### 4 [id number] #### [facility] [address] [place] [address] Urobilinogen (U) [Mass/Vol] Negative Normal Negative [facility] Comment on above: Performed By: #### 4 [id number] #### [facility] [address] [place] [address] WBC Auto (Urine sed) [#/Area] 31-75 Abnormal 0-5 [facility] Comment on above: Performed By: #### 4 [id number] #### [facility] [address] [place] [address] Type of Urine collection method Clean Catch Normal [facility] Comment on above: Performed By: #### 4 [id number] #### [facility] [address] [place] [address] URINALYSISOrdered By: Jennifer Santacruz on 09-22-2023 Bacteria [...] that meet specific criteria set forth by [facility]. Epithelial cells.squamous Auto (Urine [...] Desc Clean Catch (09/22/23 5:47 AM) Normal [facility] UA Auto SS Work Phone: eGFRon 09-22-2023 eGFR 128 mL/min/1.73 m2 Normal >=59 [facility] Comment on above: Order Comment: Order added by Discern Expert. Performed By: #### 1 [id number] #### [facility] [address] [place] [address] PAP [id number] 07-19-2023 Cytology report Cyto stain Doc (Cvx/Vag) Note Invalid Interpretation Code [facility] Comment on above: Result Comment: TEST S RESULT FLAG UNITS REF RANGE LAB Clinician Provided Cytology Information Source.............Endocervix No. of containers..01 ThinPrep Vial DIAGNOSIS: 01 NEGATIVE FOR INTRAEPITHELIAL LESION OR MALIGNANCY. Specimen adequacy: 01 Satisfactory for evaluation. Endocervical and/or squamous metaplastic cells (endocervical component) are present. Performed by: 01 Puneet Elise, Electrical And Instrumentation Mechanic ([facility]) . 01 Note: Note 01 The Pap smear is a screening test designed to aid in the detection of premalignant and malignant conditions of the uterine cervix. It is not a diagnostic procedure and should not be used as the sole means of detecting cervical cancer. Both false-positive and false-negative reports do occur. Test Methodology: Note 01 The Thin Prep(R) Director Payment was unable to read this specimen. Therefore a manual review was performed. . 01 The HPV DNA reflex criteria were not met with this specimen result therefore, no HPV testing was performed. FLAG LEGEND: L-Low Normal,H-High Normal,LL-Alert Low,HH-Alert High <-Panic Low,>-Panic High,A-Abnormal,AA-Critical Abnormal Performed at: 01 [facility] [address] [place] [address] Luz Marina Swann MD, Performed at: [facility] [address] [place], [place] [id number] MD Shree Raza Performed By: #### 3 [id number] #### [facility] [address] [place] [address] PAP [id number] 07-16-2023 Collection Technique BRUSH-SPATULA Normal [facility] Comment on above: Performed By: #### 3 [id number] #### [facility] [address] [place] [address] Gynecological Body Site ENDOCERVIX Normal [facility] Comment on above: Performed By: #### 3 [id number] #### [facility] [address] [place] [address] Physician Orderon 07-14-2023 Physician Order [id number] Normal [facility] DHEA SERUMon 08-11-2021 Dehydroepiandrosterone (DHEA) 339 ng/dL Normal -70 [facility] Comment on above: Result Comment: Age 1 [...] [birth year] Performed By: #### Justin SERRANO. #### [facility] [address] [place] [address] [address] Austen Hernadez DHEA-SULFATEon 08-01-2021 DHEA-Sulfate 247.0 ug/dL Normal 110.0-431.7 [facility] Comment on above: Performed By: #### Justin LEBLANC #### [facility] [address] [place] [address] Dr. Austen Hernadez FSHon 08-01-2021 FSH 1.6 mIU/mL Normal [facility] Comment on above: Result Comment: Adul t Female: Follicular phase 3.5 - 12.5 Ovulation phase 4.7 - 21.5 Luteal phase 1.7 - 7.7 Postmenopausal 25.8 - 134.8 Performed By: #### L BCFSH #### [facility] [address] [place] [address] Dr. Austen Hernadez LUTEINIZING HORMONE (LH)on 0 08-01-2021 LH 2.6 mIU/mL Normal [facility] Comment on above: Result Comment: Adul t Female: Follicular phase 2.4 - 12.6 Ovulation phase 14.0 - 95.6 Luteal phase 1.0 - 11.4 Postmenopausal 7.7 - 58.5 Performed By: #### L BCLH #### [facility] [address] [place] [address] Dr. Austen Hernadez CBC AUTO DIFFon 07-30-2021 BASO # 0.0 103/ul Normal 0.0-0.1 [facility] Comment on above: Performed By: #### C BC #### [facility] [address] [place] [address] Dr. Austen Hernadez Basophils/100 WBC (Bld) 0.2 % Normal 0.2-2.0 [facility] Comment on above: Performed By: #### C BC #### [facility] [address] [place] [address] Dr. Austen Hernadez EO # 0.1 103/ul Normal 0.0-0.7 [facility] Comment on above: Performed By: #### C BC #### [facility] [address] [place] [address] Dr. Austen Hernadez Eosinophils/100 WBC (Bld) 1.2 % Normal 0.9-7.0 [facility] Comment on above: Performed By: #### C BC #### [facility] [address] [place] [address] Dr. Austen Hernadez Erythrocyte distribution width (RBC) [Ratio] 12.1 % Normal 11.0-15.0 [facility] Comment on above: Performed By: #### C BC #### [facility] [address] [place] [address] Dr. Austen Hernadez Hematocrit (Bld) [Volume fraction] 40.2 % Normal 36.0-48.0 [facility] Comment on above: Performed By: #### C BC #### [facility] [address] [place] [address] Dr. Austen Hernadez Hemoglobin (Bld) [Mass/Vol] 13.3 g/dL Normal 12.0-16.0 [facility] Comment on above: Performed By: #### C BC #### [facility] [address] [place] [address] Dr. Austen Hernadez IG # 0.04 10e3/ul Critically high 0.00-0.03 [facility] Comment on above: Performed By: #### C BC #### [facility] [address] [place] [address] Dr. Austen Hernadez IG % 0.5 % Normal 0.0-0.5 [facility] Comment on above: Performed By: #### C BC #### [facility] [address] [place] [address] Dr. Austen Hernadez LYMPH # 1.7 103/ul Normal 1.2-3.8 [facility] Comment on above: Performed By: #### C BC #### [facility] [address] [place] [address] Dr. Austen Hernadez Lymphocytes/100 WBC (Bld) 20.1 % Critically low 20.5-6 0.0 [facility] Comment on above: Performed By: #### C BC #### [facility] [address] [place] [address] Dr. Austen Hernadez MANUAL DIFF REQ NO Normal [facility] Comment on above: Performed By: #### C BC #### [facility] [address] [place] [address] Dr. Austen Hernadez MCH (RBC) [Entitic mass] 30.0 pg Normal 26.7-34.0 [facility] Comment on above: Performed By: #### C BC #### [facility] [address] [place] [address] Dr. Austen Hernadez MCHC (RBC) [Mass/Vol] 33.1 g/dL Normal 29.9-35.2 [facility] Comment on above: Performed By: #### C BC #### [facility] [address] [place] [address] Dr. Austen Hernadez MCV (RBC) [Entitic vol] 90.5 fL Normal 81.0-99.0 [facility] Comment on above: Performed By: #### C BC #### [facility] [address] [place] [address] Dr. Austen Hernadez MONO # 0.5 103/ul Normal 0.3-0.8 [facility] Comment on above: Performed By: #### C BC #### [facility] [address] [place] [address] [address] Austen Hernadez Monocytes/100 WBC (Bld) 5.8 % Normal 1.7-12.0 [facility] Comment on above: Performed By: #### C BC #### [facility] [address] [place] [address] [address] Austen Hernadez NEUT # 6.2 103/ul Normal 1.4-6.5 [facility] Comment on above: Performed By: #### C BC #### [facility] [address] [place] [address] Dr. Austen Hernadez Neutrophils/100 WBC (Bld) 72.2 % Normal 43.0-75.0 [facility] Comment on above: Performed By: #### C BC #### [facility] [address] [place] [address] Dr. Austen Hernadez Platelet mean volume (Bld) [Entitic vol] 8.2 fL Critically low 9.5-13.5 [facility] Comment on above: Performed By: #### C BC #### [facility] [address] [place] [address] Dr. Austen Hernadez PLT 350 103/ul Normal 150-450 [facility] Comment on above: Performed By: #### C BC #### [facility] [address] [place] [address] Dr. Austen Hernadez RBC 4.44 106/ul Normal 4.20-5.40 [facility] Comment on above: Performed By: #### C BC #### [facility] [address] [place] [address] Dr. Austen Hernadez WBC 8.6 103/ul Normal 4.0-11.0 [facility] Comment on above: Performed By: #### C BC #### [facility] [address] [place] [address] Dr. Austen Hernadez GLYCOHEMOGLOBIN A1Con 2021 ADA RECOMMENDATION SEE BELOW Normal [facility] Comment on above: Result Comment: ADA RECOMMENDED LIMIT 4.0 - 6.0 ADA THERAPEUTIC TARGET < 7.0 ACTION SUGGESTED > 7.0 Performed By: #### A 1C #### [facility] [address] [place] [address] Dr. Austen Hernadez Glucose [Mass/Vol] 108 mg/dL Normal [facility] Comment on above: Performed By: #### A 1C #### [facility] [address] [place] [address] [address] [address] Austen Hernadez HbA1c (Bld) [Mass fraction] 5.4 % Normal 4.5-6.2 [facility] Comment on above: Performed By: #### A 1C #### [facility] [address] [place] [address] Dr. Austen Hernadez TSHon 07-30-2021 TSH 1.365 uIU/mL Normal 0.358-3.740 [facility] Comment on above: Performed By: #### T SH #### [facility] [address] [place] [address] Dr. Austen Hernadez TSH RANGE SEE BELOW Normal [facility] Comment on above: Result Comment: <0.3 4 UIU/ml HYPERTHYROID 0.34-5.60 UIU/ml EUTHYROID >5.60 UIU/ml HYPOTHYROID Performed By: #### T SH #### [facility] [address] [place] [address] Dr. Austen Hernadez US PELVIS AND TRANSVAGon [...] by: MACARENA GARCIA Date: 2021-07-30 15:31 Normal [facility] Vital Signs Date Time Vital Sign Value Performing Clinician Facility 04-19-2024 10:27-0500 Body mass index (BMI) [Ratio] 32.47 kg/m2 Bakari Hitesh DO Work Phone: [facility] 04-19-2024 10:27-0500 Body weight 83.14 kg Bakari Hitesh DO Work Phone: [facility] 04-19-2024 10:27-0500 Diastolic blood pressure 74 mm[Hg] Bakari Hitesh DO Work Phone: [facility] 04-19-2024 10:27-0500 Systolic blood pressure 118 mm[Hg] Bakari Hitesh DO Work Phone: [facility] 04-11-2024 14:32-0500 Body mass index (BMI) [Ratio] 32.42 kg/m2 Valentina Cordova PA Work Phone: [facility] 04-11-2024 14:32-0500 Body weight 83.01 kg Valentina Cordova PA Work Phone: [facility] 04-11-2024 14:32-0500 Diastolic blood pressure 78 mm[Hg] Valentina Cordova PA Work Phone: [facility] 04-11-2024 14:32-0500 Systolic blood pressure 114 mm[Hg] Valentina Corodva PA Work Phone: [facility] 04-03-2024 14:06-0500 Body mass index (BMI) [Ratio] 32.38 kg/m2 Bakari Hitesh DO Work Phone: [facility] 04-03-2024 14:06-0500 Body weight 82.92 kg Bakari Hitesh DO Work Phone: [facility] 04-03-2024 14:06-0500 Diastolic blood pressure 72 mm[Hg] Bakari Hitesh DO Work Phone: [facility] 04-03-2024 14:06-0500 Systolic blood pressure 118 mm[Hg] Bakari Hitesh DO Work Phone: [facility] 03-27-2024 14:43-0500 Body mass index (BMI) [Ratio] 31.78 kg/m2 Bakari Hitesh DO Work Phone: [facility] 03-27-2024 14:43-0500 Body weight 81.38 kg Bakari Hitesh DO Work Phone: [facility] 03-27-2024 14:43-0500 Diastolic blood pressure 68 mm[Hg] Bakari Hitesh DO Work Phone: [facility] 03-27-2024 14:43-0500 Systolic blood pressure 104 mm[Hg] Bakari Hitesh DO Work Phone: [facility] 03-12-2024 13:34-0500 Body mass index (BMI) [Ratio] 31.53 kg/m2 Valentina Suzi PA Work Phone: [facility] 03-12-2024 13:34-0500 Body weight 80.74 kg Valentina Cripple Creek PA Work Phone: [facility] 03-12-2024 13:34-0500 Diastolic blood pressure 60 mm[Hg] Valentina Cripple Creek PA Work Phone: [facility] 03-12-2024 13:34-0500 Systolic blood pressure 100 mm[Hg] Valentina Suzi PA Work Phone: [facility] 02-23-2024 15:40-0500 Body mass index (BMI) [Ratio] 30.82 kg/m2 Valentina Cripple Creek PA Work Phone: [facility] 02-23-2024 15:40-0500 Body weight 78.93 kg Valentina Cripple Creek PA Work Phone: [facility] 02-23-2024 15:40-0500 Diastolic blood pressure 76 mm[Hg] Valentina Suzi PA Work Phone: [facility] 02-23-2024 15:40-0500 Systolic blood pressure 116 mm[Hg] Valentina Suzi PA Work Phone: [facility] 02-08-2024 15:51-0500 Body mass index (BMI) [Ratio] 30.11 kg/m2 Bakari Hitesh DO Work Phone: [facility] 02-08-2024 15:51-0500 Body weight 77.11 kg Bakari Hitesh DO Work Phone: [facility] 02-08-2024 15:51-0500 Diastolic blood pressure 72 mm[Hg] Bakari Hitesh DO Work Phone: [facility] 02-08-2024 15:51-0500 Systolic blood pressure 118 mm[Hg] Bakari Hitesh DO Work Phone: [facility] 01-11-2024 14:51-0400 Body mass index (BMI) [Ratio] 28.84 kg/m2 Valentina Cordova PA Work Phone: [facility] 01-11-2024 14:51-0400 Body weight 73.85 kg Valentina Cripple Creek PA Work Phone: [facility] 01-11-2024 14:51-0400 Diastolic blood pressure 64 mm[Hg] Valentina Suzi PA Work Phone: [facility] 01-11-2024 14:51-0400 Systolic blood pressure 102 mm[Hg] Valentina Cripple Creek PA Work Phone: [facility] 01-02-2024 10:36-0400 Body height 160 cm Steffanie York MD Work Phone: [facility] 01-02-2024 10:36-0400 Body mass index (BMI) [Ratio] 28.48 kg/m2 Steffanie York MD Work Phone: [facility] 01-02-2024 10:36-0400 Body weight 72.94 kg Steffanie York MD Work Phone: [facility] 01-02-2024 10:36-0400 Diastolic blood pressure 64 mm[Hg] Steffanie York MD Work Phone: [facility] 01-02-2024 10:36-0400 Heart rate 67 /min Steffanie York MD Work Phone: [facility] 01-02-2024 10:36-0400 Systolic blood pressure 100 mm[Hg] Steffanie York MD Work Phone: [facility] 12-14-2023 14:35-0400 Body mass index (BMI) [Ratio] 28.48 kg/m2 Bakari Hitesh DO Work Phone: [facility] 12-14-2023 14:35-0400 Body weight 72.92 kg Bakari Hitesh DO Work Phone: [facility] 12-14-2023 14:35-0400 Diastolic blood pressure 66 mm[Hg] Bakari Hitesh DO Work Phone: [facility] 12-14-2023 14:35-0400 Systolic blood pressure 108 mm[Hg] Bakari Hitesh DO Work Phone: [facility] 12-08-2023 17:27-0400 Body height 160.02 cm [facility] 12-08-2023 17:27-0400 Body mass index (BMI) [Ratio] 28.3 kg/m2 [facility] 12-08-2023 17:27-0400 Body temperature 98.6 [degF] [facility] 12-08-2023 17:27-0400 Body weight 72.57 kg [facility] 12-08-2023 17:27-0400 Diastolic blood pressure 69 mm[Hg] [facility] 12-08-2023 17:27-0400 Heart rate 87 /min [facility] 12-08-2023 17:27-0400 SaO2% (BldA) [Mass fraction] 97 % [facility] 12-08-2023 17:27-0400 Systolic blood pressure 107 mm[Hg] [facility] 11-16-2023 16:05-0400 Body mass index (BMI) [Ratio] 26.93 kg/m2 Bakari Hitesh DO Work Phone: [facility] 11-16-2023 16:05-0400 Body weight 68.95 kg Bakari Hitesh DO Work Phone: [facility] 11-16-2023 16:05-0400 Diastolic blood pressure 70 mm[Hg] Bakari Hitesh DO Work Phone: [facility] 11-16-2023 16:05-0400 Systolic blood pressure 118 mm[Hg] Bakari Hitesh DO Work Phone: [facility] 09-22-2023 07:00-0400 Diastolic blood pressure 85 mm[Hg] Rodrigo More[facility] 09-22-2023 07:00-0400 Heart rate 58 /min Rodrigo Morena [facility] 09-22-2023 07:00-0400 Mean blood pressure 94 mm[Hg] Rodrigo Morena [facility] 09-22-2023 07:00-0400 SaO2% (BldA) [Mass fraction] 100 % Rodrigo Morena [facility] 09-22-2023 07:00-0400 Systolic blood pressure 113 mm[Hg] Rodrigo Morena [facility] 09-22-2023 06:30-0400 Diastolic blood pressure 67 mm[Hg] Rodrigo More[facility] 09-22-2023 06:30-0400 Heart rate 62 /min Rodrigo More[facility] 09-22-2023 06:30-0400 Mean blood pressure 81 mm[Hg] Rodrigo More[facility] 09-22-2023 06:30-0400 Respiratory rate 16 /min Rodrigo [facility] 09-22-2023 06:30-0400 SaO2% (BldA) [Mass fraction] 99 % Rodrigo Morena [facility] 09-22-2023 06:30-0400 Systolic blood pressure 110 mm[Hg] Rodrigo More[facility] 09-22-2023 05:52-0400 Diastolic blood pressure 66 mm[Hg] Rodrigo More[facility] 09-22-2023 05:52-0400 Heart rate 76 /min Rodrigo [facility] 09-22-2023 05:52-0400 Mean blood pressure 80 mm[Hg] Rodrigo More[facility] 09-22-2023 05:52-0400 Respiratory rate 18 /min Rodrigo [facility] 09-22-2023 05:52-0400 SaO2% (BldA) [Mass fraction] 98 % Rodrigo More[facility] 09-22-2023 05:52-0400 Systolic blood pressure 109 mm[Hg] Rodrigo More[facility] 09-22-2023 05:29-0400 Body temperature 98.96 [degF] Rodrigo More[facility] 09-22-2023 05:29-0400 Heart rate 67 /min Rodrigo [facility] 07-18-2023 00:06-0400 Body height 160 cm Elva Azevedo MD Work Phone: [facility] 07-18-2023 00:06-0400 Body mass index (BMI) [Ratio] 30.11 kg/m2 Elva Azevedo MD Work Phone: [facility] 07-18-2023 00:06-0400 Body temperature 98.29 [degF] Elva Azevedo MD Work Phone: [facility] 07-18-2023 00:06-0400 Body weight 77.11 kg Elva Azevedo MD Work Phone: [facility] 07-18-2023 00:06-0400 Diastolic blood pressure 79 mm[Hg] Elva Azevedo MD Work Phone: [facility] 07-18-2023 00:06-0400 Heart rate 61 /min Elva Azevedo MD Work Phone: [facility] 07-18-2023 00:06-0400 Respiratory rate 16 /min Elva Azevedo MD Work Phone: [facility] 07-18-2023 00:06-0400 SaO2% (BldA) [Mass fraction] 96 % Elva Aezvedo MD Work Phone: [facility] 07-18-2023 00:06-0400 Systolic blood pressure 132 mm[Hg] Elva Azevedo MD Work Phone: [facility] 07-07-2022 09:35-0400 Diastolic blood pressure 60 mm[Hg] Chris Banegas [facility] 07-07-2022 09:35-0400 Heart rate 83 /min Chris Banegas [facility] 07-07-2022 09:35-0400 SaO2% (BldA) [Mass fraction] 97 % Chris Banegas [facility] 07-07-2022 09:35-0400 Systolic blood pressure 100 mm[Hg] Chris Banegas [facility] Encounters Encounter Date Encounter Type Care Provider Facility Start: 04-24-2024 End: 04-24-2024 Clinisync Result Encounter Bakari Hitesh DO Work Phone: [facility] Unsolicited Start: 04-24-2024 End: 04-24-2024 Clinisync Result Encounter Bakari Hitesh DO Work Phone: [facility]solic[facility] Start: 04-23-2024 End: 04-23-2024 Clinisync Result Encounter Bakari Hitesh DO Work Phone: [facility] Unsolicited Start: 04-23-2024 End: 04-23-2024 Clinisync Result Encounter Bakari Hitesh DO Work Phone: [facility]solic[facility] Start: 04-19-2024 End: 04-19-2024 Bamboo flowsheet Bakari Hitesh DO Work Phone: [facility] Start: 04-19-2024 End: 04-19-2024 Bamboo flowsheet Bakari Hitesh DO Work Phone: [facility] Start: 04-19-2024 End: 04-19-2024 flow sheet Bakari Hitesh DO Work Phone: [facility] Comment on above: Third trimester preg nadia; 39 weeks gestation of Start: 04-19-2024 End: 04-19-2024 ambulatory BAKARI HITESH Not Available Start: 04-16-2024 End: 04-16-2024 ambulatory [...] Start: 04-11-2024 End: 04-11-2024 Bamboo flowsheet Valentina VARGSA Work Phone: [facility] Start: 04-11-2024 [...] 35 weeks gestation of ; Mood disorder ([facility]) Start: 03-27-2024 End: 03-27-2024 Bamboo flowsheet Bakari [...] [facility] Start: 02-02-2024 End: 02-02-2024 ambulatory [facility] Start: 02-01-2024 End: 02-01-2024 Clinisync Result Encounter Valentina Cripple Creek PA Work Phone: [facility] Unsolicited Start: 02-01-2024 End: 02-01-2024 Clinisync Result Encounter Valentina Cordova ALICIA Work Phone: [facility] Unsolicited Start: 01-28-2024 End: 01-28-2024 Clinisync Result Encounter Valentina Cordova ALICIA Work Phone: [facility] Unsolicited Start: 01-28-2024 End: 01-28-2024 Clinisync Result Encounter Valentina Cordova ALICIA Work Phone: [facility] Unsolicited Start: 01-11-2024 End: 01-11-2024 flow sheet Valentina Cordova ALICIA Work Phone: [facility] Comment on above: Second trimester pre gnancy; 24 weeks gestation of ; Diabetes mellitus screening Start: 01-11-2024 End: 01-11-2024 ambulatory VALENTINA CORDOVA Not Available Start: 01-11-2024 End: 01-11-2024 Bamboo flowsheet Valentina Cripple Creek PA Work Phone: [facility] Start: 01-11-2024 End: 01-11-2024 Bamboo flowsheet Valentina Cordvoa ALICIA Work Phone: [facility] Start: 01-02-2024 End: 01-02-2024 Office consultation new/estab patient 60 min Steffanie York MD Work Phone: [facility] [place] Comment on above: Partial placenta pre via (Primary Dx) Start: 01-02-2024 End: 01-02-2024 Orders Only Sushila Mcneil RN [facility] [place] Comment on above: Low-lying placenta ( Primary Dx); Personal history of cardiac murmur Start: 12-20-2023 End: 12-20-2023 Chart abstracting Steffanie York MD Work Phone: [facility] Start: 12-16-2023 End: 12-16-2023 Chart abstracting Steffanie York MD Work Phone: [facility] Start: 12-14-2023 End: 12-14-2023 flow sheet Bakari Hitesh DO Work Phone: [facility] Comment on above: Second trimester pre gnancy; 20 weeks gestation of ; Partial placenta previa Start: 12-14-2023 End: 12-14-2023 ambulatory BAKARI HITESH Not Available Start: 12-08-2023 End: 12-08-2023 ambulatory [facility] Work Phone: Start: 12-08-2023 End: 12-08-2023 Patient encounter procedure [facility] Work Phone: Start: 11-16-2023 End: 11-16-2023 Patient encounter procedure Bakari Hitesh DO Work Phone: [facility] Start: 11-16-2023 End: 11-16-2023 Periodic preventive med [...] End: 09-22-2023 Emergency department patient visit Rodrigo SMelina Berg [facility] Start: 07-18-2023 End: 07-18-2023 Emergency department patient visit ELVA GRESHAMNE [facility] Start: 07-18-2023 End: 07-18-2023 Emergency department patient visit Elva Azevedo MD Work Phone: [facility] ED Comment on above: De Quervain's tenosy novitis, left (Primary Dx) Start: 07-14-2023 End: 07-14-2023 ambulatory Love Palmer Facility:[facility] Start: 07-14-2023 End: 07-14-2023 Lab Drop off Love Martine Norie[facility] Start: 06-15-2023 End: 06-15-2023 ambulatory BAKARI HITESH Not Available Start: 07-07-2022 End: 07-07-2022 Patient encounter procedure Chris Banegas [facility] Start: 07-30-2021 End: 07-31-[address] BAKARI PROCTOR Facility: Start: 07-15-2021 End: 07-15-2021 Lab Drop off Love J Spencer [facility] Procedures Date Procedure Procedure Detail Performing Clinician Start: 04-24-2024 ALL CBC WITH AUTO DIFF Bakari Hitesh DO Work Phone: Start: 04-23-2024 [facility] CBC WITH PLATEL ET NO DIFFERENTIAL Bakari Hitesh DO Work Phone: Start: 04-23-2024 TB DRUG SCREEN RAPI D (URINE) Bakari Proctor DO Work Phone: Start: 04-11-2024 Urnls dip stick/tabl et rgnt non-auto w/o micrscp Valentina VARGAS Work Phone: Start: 04-03-2024 Urnls dip stick/tabl et rgnt non-auto w/o micrscp Bakari Proctor DO Work Phone: Start: 04-03-2024 ALL MISCELLANEOUS TEST Bakari Proctor DO Work Phone: Start: 03-27-2024 Urnls dip stick/tabl et rgnt non-auto w/o micrscp Bakari Proctor DO Work Phone: Start: 03-23-2024 [facility] UA (CLEAN/CATCH) [place]LESOFT/MICRO IF IND. Bakari Proctor DO Work Phone: Start: 03-12-2024 Urnls dip stick/tabl et rgnt non-auto w/o micrscp Valentina VARGAS Work Phone: Start: 02-08-2024 Urnls dip stick/tabl et rgnt non-auto w/o micrscp Bakari Proctor DO Work Phone: Start: 02-01-2024 GLUCOSE TOLERANCE 3 HOUR Valentina VARGAS Work Phone: Start: 01-28-2024 ALL CBC WITH AUTO DIFF Valentina VARGAS Work Phone: Start: 01-28-2024 GLUCOSE 1 HOUR Valentina Quinteros Work Phone: Start: 01-11-2024 Urnls dip stick/tabl et rgnt non-auto w/o micrscp Valentina VARGAS Work Phone: Start: 12-14-2023 Urnls dip stick/tabl et rgnt non-auto w/o micrscp Bakari Hitesh DO Work Phone: Start: 12-08-2023 Quick Strep (POC) Start: 11-16-2023 Urnls dip stick/tabl et rgnt non-auto w/o micrscp [facility] Work Phone: Start: 11-16-2023 IGP,APTIMA HPV,AGE GDLN [facility] Work Phone: Start: 11-16-2023 Microscopic observat ion [Identifier] in Cervix by Cyto stain Steffanie York MD Work Phone: Start: 11-16-2023 URETHRITIS/DISCHARGE PLUS VAGINITIS (HTRX) [facility] Work Phone: Plan of Treatment Date Care Activity Detail Author Start: 11-15-2026 Screening for malign ant neoplasm of cervix Pap Smear Tappit Start: 01-01-2025 End: 01-01-2025 US MFM with or without consult US MFM with or without consult Imaging Routine Low-lying placenta Personal history of cardiac murmur Expected: 01/01/2025 (Approximate), Expires: 01/01/2025 [employer] Work Phone: Comment on above: Expected: 01/01/2025 (Approximate), Expires: 01/01/2025 Start: 04-19-2024 End: 04-19-2024 Patient encounter procedure [facility] Comment on above: Arrived Start: 04-16-2024 End: 04-16-2024 Professional / ancillary services management 04/16/2024 3:00 PM EST Ancillary Procedure [facility] [address] [place] [address] [facility] Start: 04-11-2024 End: [...] Routine [facility] [address] [place] [phone] Bakari Proctor, DO [facility] [place], [place] [id number] [facility] Start: 03-27-2024 End: 03-27-2024 Patient encounter procedure 03/27/2024 2:30 PM EST Routine [facility] [address] [place] [phone] Bakari Proctor, DO [facility] [place] [address] [facility] Start: 03-12-2024 End: 03-12-2024 Patient encounter procedure 03/12/2024 2:40 PM EST Routine [facility] [address] [place] [phone] Valentina Cordova PA [address] [place] [address] Arrived [facility] Comment on above: Arrived Start: 03-12-2024 End: 03-12-2024 Professional / ancillary services management 03/12/2024 1:00 PM EST Ancillary Procedure [facility] [address] [place] [address] [facility] Start: 02-23-2024 End: 02-23-2024 [...] PM EST Routine [facility] [address] [facility] [place] [phone] Bakari Proctor DO [address] [place] [address] [facility] Start: 02-02-2024 End: 02-02-2024 Patient encounter procedure 02/02/2024 1:00 PM EST Appointment [facility] [place] [address] [facility] [facility] [place] [address] [facility] [place] Start: 01-11-2024 End: 01-11-2024 Patient encounter procedure 01/11/2024 2:30 PM EDT Routine [facility] [address] [facility] [place] [phone] Valentina Cordova PA [address] [place] [address] [facility] Start: 01-11-2024 End: 01-10-2025 CBC panel - Blood by Automated count CBC Lab Routine Diabetes mellitus screening Expected: 01/11/2024 (Approximate), Expires: 01/10/2025 [facility] Work Phone: Comment on above: Expected: 01/11/2024 (Approximate), Expires: 01/10/2025 Start: 01-11-2024 End: 01-10-2025 Measurement of glucose 1 hour after glucose challenge for glucose tolerance test Glucose tolerance, 1 hour Lab Routine Diabetes mellitus screening Expected: 01/11/2024 (Approximate), Expires: 01/10/2025 [facility] Comment on above: Expected: 01/11/2024 (Approximate), Expires: 01/10/2025 Start: 01-02-2024 End: 01-02-2024 Patient encounter procedure [facility] [place] Start: 12-14-2023 End: 12-14-2023 Patient encounter procedure 12/14/2023 2:10 PM EDT Routine [facility] [address] [place] [phone] Bakari Proctor, DO [address] [place] [address] [facility] Start: 12-14-2023 End: 12-14-2023 Professional / ancillary services management 12/14/2023 1:00 PM EDT Ancillary Procedure [facility] [address] [place] [phone] [facility] Start: 11-16-2023 End: 11-16-2023 Patient encounter procedure 11/16/2023 3:30 PM EDT Routine [facility] [address] [place] [phone] Bakari Proctor, DO [address] [place] [address] Arrived [facility] Comment on above: Arrived Start: 11-16-2023 End: 12-16-2023 Alpha fetoprotein, maternal Alpha fetoprotein, maternal Lab Routine Need for maternal serum alpha-protein (MSAFP) screening Expected: 11/16/2023 (Approximate), Expires: 12/16/2023 [facility] Comment on above: Expected: 11/16/2023 (Approximate), Expires: 12/16/2023 Start: 11-16-2023 End: 11-15-2024 US for US OB ANATOMY SINGLE W US OB CERVICAL LENGTH Imaging Routine Screening, , for anatomic survey Expected: 11/16/2023 (Approximate), Expires: 11/15/2024 [facility] Comment on above: Expected: 11/16/2023 (Approximate), Expires: 11/15/2024 Start: 11-13-2023 Influ[facility] Start: 10-13-2023 Influenza vaccination Flu vacc ine (Season Ended) [facility] Start: 11-02-2021 DTaP,Tdap and Td Vaccines (7 - Td or Tdap) DTaP,Tdap and Td Vaccines (7 - Td or Tdap) [facility] Start: 12-11-2019 Screening for malign ant neoplasm of cervix Pap Smear [facility] Start: 2017 DTaP,Tdap and Td Vaccines (1 - Tdap) DTaP,Tdap and Td Vaccines (1 - Tdap) [facility] Start: 2017 DTaP/Tdap/Td vaccine (1 - Tdap) DTaP/Tdap/Td vaccine (1 - Tdap) [facility] Start: 2016 Adult BMI Follow Up Plan Adult BMI Follow Up Plan [facility] Start: 2016 Adult BMI Screening Adult BMI Screen ing [facility] Start: 2010 Depression Screening Depression Scre ening [facility] Start: 2010 Tobacco Screening Tobacco Screening [facility] Start: 06-10-1999 COVID-19 Vaccine (#1) COVID-19 Vacci ne (#1) [facility] CHLAMYDIA TRACHOMATI S (GENITO/STI) CHLAMYDIA TRACHOMATIS (GENITO/STI) Lab Routine Exposure to STD Ordered: 11/16/2023 [facility] Comment on above: Ordered: 11/16/2023 Cytology Cervical or vaginal smear or scraping study Pap Smear Pathology and Cytology Routine Well woman exam with routine gynecological exam Ordered: 11/16/2023 [facility] Work Phone: Comment on above: Ordered: 11/16/2023 Neisseria gonorrhoea e DNA [Presence] in Unspecified specimen by KESHIA with probe detection Neisseria gonorrhea DNA probe, direct Lab Routine Exposure to STD Ordered: 11/16/2023 [facility] Comment on above: Ordered: 11/16/2023 SURESWAB(R) ADVANCED VAGINITIS PLUS, TMA SURESWAB(R) ADVANCED VAGINITIS PLUS, TMA Pathology and Cytology Routine Exposure to STD Ordered: 11/16/2023 [facility] Comment on above: Ordered: 11/16/2023 Immunizations Immunization Date Immunization Notes Care Provider Fa ruiz 12-28-2018 influenza virus vacc ine, unspecified formulation Bakari Proctor DO Work Phone: [facility] Payers Date Payer Category Payer [employer] er Subscriber Plan / Payer (Effective 2023-Present) Name: Sebastian Aleman Tato Relation to Subscriber: Self Name: Ash Sebastian T Payer ID: Not on file Type: Not on file Address: [address] [place] [id number] 2023 [facility] - Other ANTHEM [id number] 2023 Unknown 2023 Unknown [id number] .[id number] 1998 Unknown [id number] 2.16.840.1.149355.3.579 .2.593 1998 Unknown [id number] 2.16.840.1.109283.3.579 .2.173 1998 Unknown [id number] 2.16.840.1.357190.3.579 .2.727 1998 Unknown [id number] 2.16.840.1.922956.3.579 .2.727 1998 Unknown [id number] 2.16.840.1.645058.3.579 .2.727 1998 Unknown [id number] 2.16.840.1.402077.3.579 .2.1286 1998 Unknown [id number] 2.16.840.1.683687.3.579 .2.128 1998 Unknown [id number] 2.16.840.1.734228.3.579 .2.1286 1998 Unknown [id number] 2.16.840.1.317973.3.579 .2.125 1998 Unknown [id number] 2.16.840.1.843050.3.579 .2.1258 1998 Unknown [id number] 2.16.840.1.855450.3.579 .2.1258 1998 Unknown [id number] 2.16.840.1.017739.3.579 .2.1259 1998 Unknown [id number] 2.16.840.1.531781.3.579 .2.125 1998 Unknown [id number] 2.16.840.1.978541.3.579 .2.1258 1998 Unknown [id number] 2.16.840.1.068764.3.579 .2.1259 1998 Unknown [id number] 2.16.840.1.482502.3.579 .2.1259 1998 Unknown [id number] 2.16.840.1.015857.3.579 .2.9 1998 Unknown [id number] 2.16.840.1.483211.3.579 .2.9 1998 Unknown [id number] 2.16.840.1.146423.3.579 .2.1258 1998 Unknown [id number] 2.16.840.1.448758.3.579 .2.9 1998 Unknown [id number] 2.16.840.1.076753.3.579 .2.9 1998 Unknown [id number] 2.16.840.1.126602.3.579 .2.1259 1959 Unknown [id number] Social History Date Type Detail Facility Start: 10-24-2020 End: 01-02-2024 Tobacco smoking status Never smoked tobacco (finding) [facility] Tobacco smoking status Never [facility] Start: 07-01-2012 End: 01-02-2024 Sex Assigned At Female [facility] Start: 07-18-2023 End: 01-02-2024 Tobacco use and exposure [facility]ok[facility] Start: 07-18-2023 End: 01-02-2024 Alcohol intake Ex-drinker (finding) [facility] Start: 07-01-2012 End: 01-02-2024 History of Social function [facility] [employer] Start: 1998 Sex Assigned At Not on file [facility] [employer] Start: 1998 Sex Assigned At Female [facility] Tobacco smoking status NHIS Tobacco smoking consumption unknown [facility] Start: 08-06-2023 [facility] Start: 05-26-2022 Gender identity Identifies as female gender (finding) [facility] Start: 12-16-2023 Sex Female (finding) [facility] NEGATED: Highlighted rowStart: NINF History of tobacco use Passive smoker [facility] Goals Date Patient Goal Desired Activity /State Personal health goal Functional Status Date Assessment Result Facility 09-22-2023 Functional Status N/A Mata Godwin [facility] 07-07-2022 Functional Status N/A Jarod [facility] Clinical Notes 07-15-2021 to 04-19-2024 Aurora Koch, REHAB DIRECTOR - 04/19/2024 10:00 AM Kinjal Cordova, ALICIA - 04/11/2024 2:30 PM COMPAKami Prajapatikapil, JOSE F - 04/03/2024 1:30 PM Malcolm Moss, JOSE F - 03/27/2024 2:30 PM EST Note Date [...] nursing note reviewed. Exam conducted with a water treatment plant repairer present. Vitals: Estimated body mass index is [...] Bakari Proctor DO documented in this encounter [facility] 04-11-2024 History of Present illness Narrative Reason [...] by Racquel Tinsley MA on behalf of: ALICIA Knutson documented in this encounter [facility] 04-03-2024 History of Present illness Narrative Reason [...] nursing note reviewed. Exam conducted with a water treatment plant repairer present. Vitals: Estimated body mass index is [...] Bakari Proctor DO documented in this encounter [facility] 03-27-2024 History of Present illness Narrative Reason [...] nursing note reviewed. Exam conducted with a water treatment plant repairer present. Vitals: Estimated body mass index is [...] Bakari Proctor DO documented in this encounter [facility] 02-23-2024 History of Present illness Narrative Reason [...] of: ALICIA Knutson documented in this encounter [facility] 02-08-2024 History of Present illness Narrative Reason [...] nursing note reviewed. Exam conducted with a water treatment plant repairer present. Vitals: Estimated body mass index is [...] Bakari Proctor DO documented in this encounter [facility] 01-11-2024 History of Present illness Narrative Reason [...] of: ALICIA Knutson documented in this encounter [facility] 01-02-2024 History of Present illness Narrative REASON [...] and the other consultants, we search on [employer] and all the available care everywhere epic I did review all the imaging studies of the patient available on EMR, ordered by the primary care physician and the other bus info consultant HABITS: Patient activity no restrictions, diet [...] 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 Patient does have ultrasound scheduled with us. Thank you for allowing me to participate in Sebastian Aleman . If there any questions please [...] neg Have you been seen here at [facility] in a previous ? No Recent ER visits or hospitalizations? No Bring blood sugar log or meter with you today? (Please bring them with you for every visit at [facility]) N/A Flu vaccine (Jan-May)? N/A Any concerns that you would like me to mention to the provider today? No documented in this encounter [facility] 12-14-2023 History of Present illness Narrative Reason [...] nursing note reviewed. Exam conducted with a water treatment plant repairer present. Vitals: Estimated body mass index is [...] partially covers os. Pt being referred to [facility] for evaluation of placenta previa. Pt to be on pelvic rest until further notice. Pt to return in 4 weeks. Documented by Kami Moss LPN on behalf of: Bakari Proctor DO documented in this encounter [facility] 11-16-2023 History of Present illness Narrative Reason [...] nursing note reviewed. Exam conducted with a water treatment plant repairer present. Vitals: Estimated body mass index is [...] Valentina Cordova PA-C documented in this encounter [facility] 09-22-2023 Evaluation + Plan note Extrac arvin from: Title:ED Note Author:Rodrigo Berg DO Date :09/22/23 Asymptomatic bacteriuria dur ing (O99.891: Other specified diseases and conditions complicating ) Bacteriuria (R82.71: Bacteriuria) Nausea and vomiting during (O21.9: Vomiting of , unspecified) Orders: cephalexin, 500 mg = 1 cap(s), Oral, q12hr, X 5 day(s), # 10 cap(s), Refills(s) 0, Pharmacy: [facility]/pharmacy #[id number], 160, cm, 09/22/23 5:34:00 EDT, Height/Length Dosing, 72.4, kg, 09/22/23 5:34:00 EDT, Weight Dosing Lactated Ringers Injection, 1,000 mL, Soln-IV, IV, Once, Stop date 09/22/23 5:38:00 EDT, STAT, Start date 09/22/23 5:38:00 EDT, mL/hr, Infuse over 61, minute(s) promethazine, 12.5 mg = 1 tab(s), Oral, q8hr, PRN as needed for nausea/vomiting, # 12 tab(s), Refills(s) 0, Pharmacy: [facility]/pharmacy #[id number], 160, cm, 09/22/23 5:34:00 EDT, [...] Tests Pending * Urine Culture 09/22/[address] [facility]07-11-2024 Hospital Discharge instructions Patient Education 09/22/2023 [...] Follow these instructions at home: Medicines Take beht-jhm-epqewbc and prescription medicines only as told by your health care provider. Do not use any prescription, ufpq-whz-nddpuao, or herbal medicines for morning sickness without [...] provider. Document Revised: 10/13/2020 Document Reviewed: 09/22/2020 [employer] Patient Education 2022 [employer]. 09/22/2023 07:17:19 Asymptomatic Bacteriuria Asymptomatic Bacteriuria Asymptomatic [...] Follow these instructions at home: Medicines Take wwkp-myo-igfvlzk and prescription medicines only as told by [...] provider. Document Revised: 10/10/2020 Document Reviewed: 10/10/2020 [employer] Patient Education 2022 [employer]. Follow Up Care 09/22/2023 05:26:40 With:Bakari PROCTOR Address: [address] [place] [address] Business (1) When:09/25/2023 06:28:[address] [facility]07-11-2024 NoteED Patient Education Note Obstetrics and [...] these instructions at home: Medicines ? Take uhus-lpn-ekxedne and prescription medicines only as told by your health care provider. Do not use any prescription, ixwu-oyo-uovcahh, or herbal medicines for morning sickness without [...] Reviewed: 09/22/2020 Elsevier Patient Education ? 2022 [employer] Urology Asymptomatic Bacteriuria Asymptomatic bacteriuria is [...] You are an o (more content not included)...[facility] 07-18-2023 Hospital Discharge instructions* Discharge [...] sent through Care Everywhere. * Tenosynovitis: Wrist ([place]) [facility] Patient Education 07/07/2022 [...] numbers. This can be done either in [place] or metric measurements. Note that charts and online BMI calculators are available to help you find your BMI quickly and easily without having to do these calculations yourself. To calculate your BMI in [place] measurements: 1.Measure your weight in pounds [...] Centers for Disease Control and Prevention: www.cdc.gov [place] Heart Association: www.heart.org National Heart, Lung, and Blood [place]: www.nhlbi.nih.gov Summary Body mass index (BMI) is a number that is calculated from a person's weight and height. BMI may help estimate how much of a person's weight is composed of fat. BMI can help identify thosewho may be at higher risk for certain medical problems. BMI can be measured using [place] measurements or metric measurements. BMI charts are used to identify whether you are underweight, normal weight, overweight, or obese. This information is not intended to replace advice given to you by your health care provider. Make sure you discuss any questions you have with your health care provider. Document Revised: 11/21/2019 Document Reviewed: 09/28/2019 [employer] Patient Education 2022 [employer]. 07/07/2022 10:02:02 Tendinitis, Bhgp-ea-Zmuk Tendinitis Tendinitis is irritation and swelling (inflammation) [...] only as told by your doctor. Take fpjt-sva-ukyjjbz and prescription medicines only as told by [...] provider. Document Revised: 11/05/2021 Document Reviewed: 11/05/2021 [employer] Patient Education 2022 [employer]. Follow Up Care 07/07/2022 09:19:19 With:NONE, XXXX Address: [phone] When: Unknown [facility] 05-04-2022 Evaluation + Plan note Diagnostic Tests Pending * Chlamydia/Gonococcus, KESHIA [facility] [facility]* Diagnosis De Quervain's tenosynovitis, left- Primary Radial styloid tenosynovitis [facility] assessment information available [facility] Work Phone: Evaluation note* Diagnosis Second trimester state, incidental 20 weeks gestation of Partial placenta previa Placenta previa without hemorrhage, unspecified as to episode of care [facility] Partial placenta previa- Primary Placenta previa without hemorrhage, unspecified as to episode of care [facility] Diagnosis Low-lying placenta- Primary Hemorrhage from placenta previa, unspecified as to episode of care Personal history of cardiac murmur Personal history of other diseases of circulatory system [facility] Diagnosis Second trimester state, [...] mood disorder [facility] [...] calculated from the following: Height as of 07/05/23: 5' 3 . Weight as of this [...] behalf of: ALICIA Knutson [facility] Narrative No data available for this section [facility] No data available for this section [facility]ructionsNot on filedocumented in this encounter [facility] filedocumented in this encounter [facility] on filedocumented in this [facility] No data available for this section [facility] Reason for referral (narrative) Referred by: Chris Banegas PA-C [facility] Summary Purpose Family [...] and content) DATE CREATED AUTHOR 08/12/2021 [facility] DATE CREATED AUTHOR AUTHOR'S ORGANIZ ATION 07/18/2023 Op[facility] DATE CREATED AUTHOR AUTHOR'S ORGANIZ ATION 09/28/2023 [facility] DATE CREATED AUTHOR AUTHOR'S ORGANIZ ATION 09/29/2023 [facility] DATE CREATED AUTHOR AUTHOR'S ORGANIZ ATION 02/05/2024 [facility] DATE CREATED AUTHOR AUTHOR'S ORGANIZ ATION 04/21/2024 [facility] EPIC Reason for Visit (unrecogniz ed section and content) Reason Comments Wrist Injury Patient arrived to E with complaints of left wrist injury. 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 had issues with [...] Care Teams (unrecognized sec tion and content) Audio Production Manager Relationship Specialty Start Date End Date Unallocated, [place]oms Provider, [address] [place] [address] PCP - General Family Medicine 09/26/23 Team [...] BE BASED ON THE PRIMARY CLINICAL RECORDS. [facility]. provides no warranty or guarantee of the accuracy or completeness of information in this document.
[2024-04-26 15:18] VITALS: BP 125/81; PULSE 75; TEMP 36.9; O2SAT 98
--- NOTE | 2024-04-26 15:18 | PC.NURSE ---
ErickaPARIS and 3 day old Hailey arrive for follow up appointment. Parents report doing well, infant feeds frequently, so not a lot of sleep . Ericka denies complaints for herself, minimal cramping and minimal perineal discomfort. Does report nipple pain with feeding and currently has excoriated areas bilaterally. Baby has heel stick blood draw for bili and CBC. VSS and assessment WNL. Does report increase in edema of feed and lower legs since being home. Baby Hailey noted to be jaundiced. Assessment WNL and VSS stable. to scales and weight loss of 15 gms noted from discharge. Parents reports 4 wets and 3 dark stools since discharge. noted to have suspected lip tie and tongue tie. Discussed with parents and given information on referral for pediatric dentist evaluation. Dr Rao in to speak with parents. Father of baby has history of infant loss with previous child causing significant fear and anxiety. validates emotions and discusses differences in circumstances with this child. Father relaxes and verbalizes understanding, acknowledges differences in children and circumstances. Support offered. Lab results reported to Dr Rao, orders obtained for repeat bili and BMP for tomorrow. 04/27/2024. Parents verbalize understanding. Family leaves together, returning tomorrow AM for lab work.
== END 2024-04-26 15:24 | disposition home or self-care (01) ==
LOC: FBCO 10:16
PROVIDERS: Visit Provider Obstetrics & Gynecology
DX: Z39.1 Encounter for care and examination of lactating mother (principal)

== ENCOUNTER 2024-12-03 08:41 | Outpatient (OUT) | payer BC, SELFPAY ==
--- OUTSIDE RECORDS SUMMARY | 2024-12-03 08:50 | XMS_ITS | CCD ---
Author Organization [facility] Care Team Providers Care Historic Interpreter Name Role Phone NONE, XXXX Primary Care Physician Unavailab thee PROCTOR, DR PLASENCIA Attending Unavailable HITESH, DR PLASENCIA Consulting Unavailable HITESH, DR PLASENCIA Admitting Unavailable ZIEBER, DR MACARENA Kim Consulting Unavailable Unavailable Primary Care Provider UnavailELVA Caldera Attending Unavailable DO Rodrigo Berg Attending Unavailable Love Palmer Attending Unavailable Love Palmer Admitting Unavailable DO Rodrigo Berg Attending Unavailable Unallocated , Robert Provider Primary Care Provi que HITESH, BAKARI R Referring Unavailable STEFFANIE YORK Attending Unavailable STEFFANIE YORK Referring Unavailable Unallocated Robert CORMIER Provider Primary Care Provi que Unavailable Primary Care Provider Unavailliberty downey HITESH, Bakari R Admitting Unavailable HITESH, Bakari R Attending Unavailable HITESH, Bakari R Attending Unavailable HITESH, Bakari R Admitting Unavailable MICAH PROCTORY Attending Unavailable SUZIVALENTINA HENDERSON Attending Unavailable SUZI VALENTINA Referring Unavailable HITESH, BAKARI Attending Unavailable SUZI VALENTINA Attending Unavailable HITESH, BAKARI Attending Unavailable SUZI, VALENTINA Attending Unavailable HITESH, BAKARI Attending Unavailable SUZI VALENTINA Attending Unavailable SUZI, VALENTINA Attending Unavailable HITESHBAKARI BUSTOS Attending Unavailable Medications Current Medications Medication Drug Class(es) Dates Sig (Normalized) Sig (Original) azithromycin 250 mg oral tablet (3 sources) Macrolide Antimicrobial Start: 11-15-2024 azithromycin (Zithromax Z-Jensen) 250 MG tablet Indications: Sinus congestion As directed 6 tablet 11/15/2024 Active Start: 11-22-2023 End: 12-14-2023 azithromycin (Zithromax Z-Pa k) 250 MG tablet Indications: URI, acute As directed 6 tablet 11/22/2023 12/14/2023 Discontinued cephalexin 500 mg oral capsule (1 source) Cephalosporin Antibacterial Start: 09-22-2023 End: 09-27-2023 take 1 capsule by mouth every twelve hours Keflex 500 mg Cap 500 mg = 1 cap(s), Oral, q12hr, X 5 day(s), # 10 cap(s), Refills(s) 0, Pharmacy: [facility]/pharmacy #[id number], 160, cm, 09/22/23 5:34:00 [...] 03/12/19 Status: Ordered 21 day ethinyl estradiol 0.152643 mg/hr / etonogestrel 0.005 mg/hr vaginal system [...] tablet (20 sources) Serotonin-3 Receptor Antagonist Start: 11-15-2024 End: 12-15-2024 take 1 tablet by mouth every six hours as needed for nausea and vomiting and nausea and nausea ondansetron ODT (Zofran-ODT) 4 MG disintegrating tablet Indications: Nausea Take 1 tablet (4 mg) by mouth every 6 (six) hours if needed for nausea or vomiting 30 tablet 2 11/15/2024 12/15/2024 Active Start: 11-15-2023 End: 06-04-2024 ondansetron ODT (Zofran-ODT) 4 MG disintegrating tablet 11/15/2023 06/04/2024 Discontinued (Therapy completed) take 1 tablet by titi th every eight hours as needed for nausea and vomiting ondansetron (ZOFRAN) 4 mg tablet Take 1 tablet (4 mg total) by mouth every 8 (eight) hours as needed for nausea or vomiting. Active Pnv #74-Mitc-Zewhl Acid-Omega3 (1 source) Start: 12-08-2023 Pnv #52-Yjle-Bvucn Acid-Omega3 Active CAP PO December 08, 2023 12:00am predniSONE 20 mg oral tablet (1 source) Start: 07-07-2022 End: 07-12-2022 take 2 tablets by mouth once daily predniSONE 20 mg Tab 40 mg = 2 tab(s), Oral, Daily, X 5 day(s), # 10 tab(s), Refills(s) 0, Pharmacy: [facility]/pharmacy #[id number], 160, cm, 07/07/22 9:38:00 [...] nausea/vomiting, # 12 tab(s), Refills(s) 0, Pharmacy: [facility]/pharmacy #[id number], 160, cm, 09/22/23 5:34:00 [...] December 08, 2023 12:00am Start: 03-12-2019 End: 09-02-2024 take 1 tablet by mouth once daily valACYclovir (Valtrex) 500 MG tablet Indications: Herpes simplex Take 1 tablet (500 mg) by mouth Daily 90 tablet 3 06/04/2024 09/02/2024 Active Completed/Discontinued Medications Medication Drug Class(es) Dates Sig (Normalized) Sig (Original) amoxicillin 875 mg oral tablet (10 sources) Penicillin-class Antibacterial Start: 12-08-2023 End: 02-08-2024 take 1 tablet by mouth in the morning amoxicillin (Amoxil) 875 MG tablet Take 875 mg by mouth in the morning and 875 mg before bedtime. 12/08/2023 02/08/2024 Discontinued (Therapy completed) Ethinyl Estradiol / Levonorgestrel (1 source) Progestin, Estrogen, Progestin-containing Intrauterine Device Start: 06-18-2024 End: 11-15-2024 take 1 tablet by mouth once daily, then take 1 tablet by mouth once daily levonorgestrel-et hinyl estradiol (Jolessa) 0.15-0.03 MG tablet Indications: Uses control Take 1 tablet by mouth Daily Take 1 tablet by mouth daily 84 tablet 3 06/18/2024 11/15/2024 Discontinued 1 ml ketorolac tromethamine 30 mg/ml cartridge (1 source) Nonsteroidal Anti-inflammatory Drug, Cyclooxygenase Inhibitor Start: 07-18-2023 End: 07-18-2023 ketorolac (TORADOL) injection 30 mg norethindrone 0.35 mg oral tablet (3 sources) Start: 09-04-2024 End: 11-15-2024 take 1 tablet by mouth once daily, then take 1 tablet by mouth once daily Jencycla 0.35 MG tablet Indications: 6 weeks follow-up ([facility]) TAKE 1 TABLET (0.35 MG) BY MOUTH DAILY TAKE 1 TABLET BY MOUTH DAILY 84 tablet 3 09/04/2024 11/15/2024 Discontinued Start: 06-04-2024 End: 08-27-2024 take 1 tablet by mouth once daily, then take 1 tablet by mouth once daily norethindrone (Micronor) 0.35 MG tablet Indications: 6 weeks follow-up Take 1 tablet (0.35 mg) by mouth Daily Take 1 tablet by mouth daily 84 tablet 06/04/2024 08/27/2024 Active progesterone 200 mg oral capsule (1 source) Progesterone Start: 11-01-2024 End: 11-15-2024 take 1 capsule by mouth once daily progesterone 200 MG capsule Indications: Missed menses , History of miscarriage Take 1 capsule (200 mg) by mouth Daily 30 capsule 3 11/01/2024 11/15/2024 Discontinued 24 hr venlafaxine 37.5 mg extended release oral capsule (17 sources) Serotonin and Norepinephrine Reuptake Inhibitor Start: 03-27-2024 End: 04-23-2025 take 1 capsule by mouth once daily venlafaxine XR (Effexor XR) 37.5 MG 24 hr capsule Indications: Mood disorder Take 1 capsule (37.5 mg) by mouth Daily Do not crush or chew. 90 capsule 3 04/23/2024 11/15/2024 Discontinued Problems Active Problems Problem Classification Problem Date Documented Date Episodic/Chronic Anxiety disorders (4 sources) Anxiety 03-12-2019 Chronic Genitourinary symptoms and ill-defined conditions (1 source) Bacteriuria; Translations: [Bacteriuria] Onset: 09-22-2023 Episodic Hemorrhage during ; abruptio placenta; placenta previa (11 sources) Placenta previa partialis; Translations: [Partial placenta previa NOS or without hemorrhage, unspecified trimester] Onset: 12-16-2023 12-14-2023 Episodic Menstrual disorders (1 source) Missed period; Translations: [Irregular menstruation, unspecified] 11-08-2024 Chronic Mood disorders (6 sources) Depression; Translations: [Mood disorder] 05-25-2013 Chronic Nausea and vomiting (1 source) Nausea; Translations: [Nausea] 11-15-2024 Episodic Other circulatory disease (1 source) Personal [...] [Patient encounter status] Onset: 01-02-2024 08-30-2013 Episodic Other upper respiratory disease (1 source) Congestion of nasal sinus; Translations: [Nasal congestion] 11-15-2024 Episodic Otitis media and related conditions (4 [...] herpesviral infection, 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 Viral infection (4 sources) Herpes simplex; Translations: [Herpesviral infection, unspecified] 02-23-2024 Episodic Past or Other Problems Problem Classification Problem Date Documented Da te Episodic/Chronic Immunizations and screening for infectious disease (2 sources) Exposure to sexually transmissible disorder; Translations: [Contact with and (suspected) exposure to infections with a predominantly sexual mode of transmission] 11-16-2023 Episodic Other circulatory disease (1 source) History of clinical finding in subject; Translations: [Personal history of other diseases of the circulatory system] 01-02-2024 Episodic Unclassified (1 source) History of clinical finding in subject 01-02-2024 Results Test Name Value Interpretation Reference Range Facility HCG ( test) Ql (U)o n 11-15-2024 Interpretation and review of laboratory results Abnormal [facility] Healthcare Preg Test, Ur Positive Negative [facility] OB TRANSVAGINALon 025 US OB TRANSVAGINAL FINDINGS: A single intrauterine gestational sac is present. No subchorionic hemorrhage. A single pole is present. Normal heart rate at 118 beats per minute. Yolk sac also is seen. Current sonographic age is 6 weeks and 6 days based on the crown-rump length measurement of 7 mm (6 weeks and 4 days) and gestational sac measurement of 2.4 cm (7 weeks and 0 days). Based on this age, current estimated date of delivery is July 05, 2025. No pelvic fluid or adnexal mass present. Cervix is closed. IMPRESSION: Findings consistent with a live intrauterine gestation, current sonographic age of 6 weeks and 6 days resulting in an estimated date of delivery of July 05, 2025. TRANSCRIBED BY: ELECTRONICALLY SIGNED BY: Zach Rios MD Normal Not Available Comment on above: Order Comment: US OB TRANSVAGINAL No LMP recorded. US Pelvis transvaginalon Findings consistent with a live intrauterine gestation, current sonographic age of 6 weeks and 6 days resulting in an estimated date of delivery of July 05, 2025. TRANSCRIBED BY: ELECTRONICALLY SIGNED BY: Zach Rios MD IMAGING FINDINGS: A single intrauterine gestational sac is present. No subchorionic hemorrhage. A single pole is present. Normal heart rate at 118 beats per minute. Yolk sac also is seen. Current sonographic age is 6 weeks and 6 days based on the crown-rump length measurement of 7 mm (6 weeks and 4 days) and gestational sac measurement of 2.4 cm (7 weeks and 0 days). Based on this age, current estimated date of delivery is July 05, 2025. No pelvic fluid or adnexal mass present. Cervix is closed. IMAGING Zach Rios MD - 11/15/2024 FINDINGS: A single intrauterine gestational sac is present. No subchorionic hemorrhage. A single pole is present. Normal heart rate at 118 beats per minute. Yolk sac also is seen. Current sonographic age is 6 weeks and 6 days based on the crown-rump length measurement of 7 mm (6 weeks and 4 days) and gestational sac measurement of 2.4 cm (7 weeks and 0 days). Based on this age, current estimated date of delivery is July 05, 2025. No pelvic fluid or adnexal mass present. Cervix is closed. IMPRESSION: Findings consistent with a live intrauterine gestation, current sonographic age of 6 weeks and 6 days resulting in an estimated date of delivery of July 05, 2025. TRANSCRIBED BY: ELECTRONICALLY SIGNED BY: Zach Rios MD [facility] Radiology Study observation (narrative) [facility] US Pelvis transvaginalOrdere d By: Zach Rios on 11-15-2024 [facility] Work Phone: Urinalysis macro (dipstick) panel (U)on 11-15-2024 Bilirubin, UA Negative Negative - 4(70) +++ mg/dL [facility] Blood, UA Negative Negative - 50 Raul/mcL [facility] Clarity, UA Clear [facility] Color, UA Yellow [facility] Glucose, UA Negative Negative - 1999(110) ++++ mg/dL [facility] Interpretation and review of laboratory results Normal [facility] Ketones, UA Negative Negative - 160(16) ++++ mg/dL [facility] Leukocytes, UA Negative Negative - 500+++ Anitra/mcL [facility] Nitrite, UA Negative Negative - Positive [facility] pH, UA 6 5 - 9 [facility] Protein, UA Negative Negative - 2000(20) ++++ mg/dL [facility] Spec Grav, UA 1.025 1 - 1.03 [facility] Urobilinogen, UA 1.0 0.2 - 12 mg/dL [facility] Progesteroneon 10-26-2024 Progesterone Lvl 22.19 ng/mL Invalid Interpretation Code [facility] Comment on above: Result Comment: 'F N ON FOLLICULAR = 0.10 - 0.60' 'LUTEAL = 3.00 - 17.5' 'MIDLUTEAL = 3.30 - 18.6' 'POST-MENOPAUSE = 0.10 - 0.40' '-FIRST TRIMESTER = 8.30 - 66.5' 'SECOND TRIMESTER = 18.9 - 66.1' 'THIRD TRIMESTER = 35.8 - 312.4' 'MALES = 0.14 - 2.06' Performed By: #### 2 [id number] #### [facility] [address] [place] [address] ALL CBC WITH AUTO DIFFon BASOPHILS ABSOLUTE AUTO 0 N [facility] Basophils/100 WBC (Bld) 0.2 % 0.2 - 2.0 % [facility] Eosinophils/100 WBC (Bld) 0.1 % Low 0.9 - 7.0 % [facility] Erythrocyte distribution width (RBC) [Ratio] 13.5 % 11.0 - 15.0 % [facility] Hematocrit (Bld) [Volume fraction] 32.6 % Low 36.0 - 48.0 % [facility] Hemoglobin (Bld) [Mass/Vol] 11.1 g/dL Low 12.0 - 16.0 g/dL [facility] IMMATURE GRANULOCYTES ABS AUTO 0.16 High [facility] Immature granulocytes/100 WBC (Bld) 0.8 % High 0.0 - 0.5 % [facility] Interpretation and review of laboratory results Abnormal [facility] LYMPHOCYTES ABSOLUTE AUTO 1.9 [facility] Lymphocytes/100 WBC (Bld) 9.4 % Low 20 .5 - 60.0 % [facility] MCH (RBC) [Entitic mass] 30.8 pg 26. 7 - 34.0 pg [facility] MCHC (RBC) [Mass/Vol] 34 g/dL 29.9 - 35.2 g/dL [facility] MCV (RBC) [Entitic vol] 90.6 fL 81.0 - 99.0 fL [facility] MONOCYTES ABSOLUTE AUTO 1.2 High N [facility] Monocytes/100 WBC (Bld) 6.1 % 1.7 - 12.0 % [facility] NEUTROPHILS ABSOLUTE AUTO 16.5 High [facility] Neutrophils/100 WBC (Bld) 83.4 % High 43 .0 - 75.0 % [facility] Platelet mean volume (Bld) [Entitic vol] 10.5 fL 9.5 - 13.[address] [facility] EO # 0 [facility] PLT 271 [facility] RBC 3.[address] [facility] WBC 19.8 High [facility] CBC WITH PLATELET NO DI FFERENTIALon 04-23-2024 Erythrocyte distribution width (RBC) [Ratio] 13.2 % 11.0 - 15.0 % [facility] Hematocrit (Bld) [Volume fraction] 37.6 % 36.0 - 48.0 % [facility] Hemoglobin (Bld) [Mass/Vol] 12.8 g/dL 12.0 - 16.0 g/dL [facility] Interpretation and review of laboratory results Abnormal [facility] MCH (RBC) [Entitic mass] 30.3 pg 26. 7 - 34.0 pg [facility] MCHC (RBC) [Mass/Vol] 34 g/dL 29.9 - 35.2 g/dL [facility] MCV (RBC) [Entitic vol] 89.1 fL 81.0 - 99.0 fL [facility] Platelet mean volume (Bld) [Entitic vol] 9.9 fL 9.5 - 13.[address] [facility] PLT 313 [facility] RBC 4.22 [facility] WBC 11.7 High [facility] DRUG SCREEN RAPID (URINE )on 04-23-2024 AMPHETAMINE SCREEN URINE Negative NEGATIVE [facility] BARBITURATES SCREEN URINE Negative NEGATIVE [facility] BENZODIAZEPINES SCREEN URINE Negative NEGATIVE [facility] BUPRENORPHINE SCREEN URINE Negative NEGATIVE [facility] Comment on above: DRUG CLASS TEST SYST [...] 300 ng/mL CANNABINOID SCREEN URINE Negative NEGATIVE [facility] COCAINE SCREEN URINE Negative NEGATIVE [facility] METHADONE SCREEN URINE Negative NEGATIVE [facility] METHAMPHETAMINES SCREEN URINE Negative NEGATIVE [facility] OPIATE SCREEN URINE Negative NEGATIVE [facility] OXYCODONE SCREEN URINE Negative NEGATIVE [facility] PHENCYCLIDINE SCREEN URINE Negative NEGATIVE [facility] TRICYCLIC ANTIDEPRESSANT URINE Negative NEGATIVE [facility] US OB FOLLOW UP TRANSABDOMIN AL APPROACHon [...] 3287 gm / 7 lbs, 3 oz (1608-9761 gm) [place] Normal: 3293 gm (5546-5065 gm) [place] Wt%: 49% for 38.3 wks [...] UA Negative Negative - 4(70) +++ mg/dL [facility] Blood, UA Negative Negative - 50 Raul/mcL [facility] Clarity, UA Clear [facility] Color, UA Yellow [facility] Glucose, UA Negative Negative - 1999(110) ++++ mg/dL [facility] Interpretation and review of laboratory results Normal [facility] Ketones, UA Negative Negative - 160(16) ++++ mg/dL [facility] Leukocytes, UA Negative Negative - 500+++ Anitra/mcL [facility] Nitrite, UA Negative Negative - Positive [facility] pH, UA 6 5 - 9 [facility] Protein, UA Negative Negative - 1999(20) ++++ mg/dL [facility] Spec Grav, UA 1.025 1 - 1.03 [facility] Urobilinogen, UA 0.2 0.2 - 12 mg/dL [facility] ALL MISCELLANEOUS TESTon MISCELLANEOUS TEST COMMENT . [facility] Comment on above: Test Ordered: [id number] Strep Gp B Culture+Rflx Strep Gp B Culture+Rflx Negative CB Reference Range: Negative Centers for Disease Control and Prevention (CDC) and [place] [employer]stetricians and Gynecologists (ACOG) guidelines [...] to clindamycin is noted. Performed at: - [facility] [id number] Labor Relations Analyst: Quintin Rosen PhD, Phone: [phone] GROUP B STREP [id number] Group B Streptococcus Colonization Detection Culture With Re [facility] Urinalysis macro (dipstick) panel (U)on 04-03-2024 Bilirubin, UA Negative Negative - 4(70) +++ mg/dL [facility] Blood, UA Negative Negative - 50 Raul/mcL [facility] Clarity, UA Clear [facility] Color, UA Yellow [facility] Glucose, UA Negative Negative - 1999(110) ++++ mg/dL [facility] Interpretation and review of laboratory results Abnormal [facility] Ketones, UA Positive Negative - 160(16) ++++ mg/dL [facility] Leukocytes, UA Negative Negative - 500+++ Anitra/mcL [facility] Nitrite, UA Negative Negative - Positive [facility] pH, UA 5.5 5 - 9 [facility] Protein, UA Trace Negative - 1999(20) ++++ mg/dL [facility] Spec Grav, UA 1.03 1 - 1.03 [facility] Urobilinogen, UA 0.2 0.2 - 12 mg/dL [facility] Urinalysis macro (dipstick) panel (U)on 03-27-2024 Bilirubin, UA Negative Negative - 4(70) +++ mg/dL [facility] Blood, UA Negative Negative - 50 Raul/mcL [facility] Clarity, UA Clear [facility] Color, UA Yellow [facility] Glucose, UA Negative Negative - 1999(110) ++++ mg/dL [facility] Interpretation and review of laboratory results Abnormal [facility] Ketones, UA Positive Negative - 160(16) ++++ mg/dL [facility] Leukocytes, UA Negative Negative - 500+++ Anitra/mcL [facility] Nitrite, UA Negative Negative - Positive [facility] pH, UA 5.5 5 - 9 [facility] Protein, UA Negative Negative - 1999(20) ++++ mg/dL [facility] Spec Grav, UA 1.03 1 - 1.03 [facility] Urobilinogen, UA 0.2 0.2 - 12 mg/dL [facility] TBH UA (CLEAN/CATCH) KNOTTER HAND/JENNY RO IF IND.on 03-23-2024 BILIRUBIN URINE Negative NEGATIVE [facility] BLOOD URINE Negative NEGATIVE [facility] Clarity (U) SL CLOUDY CLEAR [facility] Color (U) LT. YELLOW YELLOW [facility] GLUCOSE URINE UA Negative NEGATIVE mg/dL [facility] Ketones Ql (U) Negative NEGATIVE mg/dL [facility] Leukocyte esterase Test strip Ql (U) Negative NEGATIVE [facility] NITRITE URINE Negative NEGATIVE [facility] pH (U) 6.0 [pH] 5.0 - 9.0 [facility] PROTEIN URINE Negative NEG/TRACE mg/dL [facility] SPECIFIC GRAVITY URINE 1.025 1.005 - 1.025 [facility] URINE MICROSCOPIC INDICATED NO [facility] UROBILINOGEN URINE 0.2 EU/dL 0.2 - 1.0 EU/dL [facility] Urinalysis macro (dipstick) panel (U)on 03-12-2024 Bilirubin, UA Negative Negative - 4(70) +++ mg/dL [facility] Blood, UA Not detected Negative - 50 Raul/mcL [facility] Clarity, UA Clear [facility] Color, UA Yellow [facility] Glucose, UA Negative Negative - 1999(110) ++++ mg/dL [facility] Interpretation and review of laboratory results Abnormal [facility] Ketones, UA Negative Negative - 160(16) ++++ mg/dL [facility] Leukocytes, UA Negative Negative - 500+++ Anitra/mcL [facility] Nitrite, UA Negative Negative - Positive [facility] pH, UA 6 5 - 9 [facility] Protein, UA Trace Negative - 1999(20) ++++ mg/dL [facility] Spec Grav, UA 1.03 1 - 1.03 [facility] Urobilinogen, UA 0.2 0.2 - 12 mg/dL [facility] Urinalysis macro (dipstick) panel (U)on 02-08-2024 Bilirubin, UA Negative Negative - 4(70) +++ mg/dL [facility] Blood, UA Negative Negative - 50 Raul/mcL [facility] Clarity, UA Clear [facility] Color, UA Yellow [facility] Glucose, UA Negative Negative - 1999(110) ++++ mg/dL [facility] Interpretation and review of laboratory results Abnormal [facility] Ketones, UA Positive Negative - 160(16) ++++ mg/dL [facility] Comment on above: trace Leukocytes, UA Negative Negative - 500+++ Anitra/mcL [facility] Nitrite, UA Negative Negative - Positive [facility] pH, UA 6 5 - 9 [facility] Protein, UA Negative Negative - 1999(20) ++++ mg/dL [facility] Spec Grav, UA 1.03 1 - 1.03 [facility] Urobilinogen, UA 0.2 0.2 - 12 mg/dL [facility] GLUCOSE TOLERANCE 3 HOURon 1 04-02-2023 GLUCOSE TOLERANCE 3 HOUR mg/dL [facility] Comment on above: GLU FAST 88 (<95) Co l: 02/01/24 1310 GLU 1HR 177 (<180) Col: 02/01/24 1412 GLU 2HR 131 (<155) Col: 02/01/24 1512 GLU 3HR 106 (<140) Col: 02/01/24 1612 [facility] ALL CBC WITH AUTO DIFFon BASOPHILS ABSOLUTE AUTO 0 N [facility] Basophils/100 WBC (Bld) 0.2 % 0.2 - 2.0 % [facility] Eosinophils/100 WBC (Bld) 0.8 % Low 0.9 - 7.0 % [facility] Erythrocyte distribution width (RBC) [Ratio] 12.4 % 11.0 - 15.0 % [facility] [facility] Hematocrit (Bld) [Volume fraction] 34.2 % Low 36.0 - 48.0 % [facility] Hemoglobin (Bld) [Mass/Vol] 11.7 g/dL Low 12.0 - 16.0 g/dL [facility] IMMATURE GRANULOCYTES ABS AUTO 0.2 High [facility] Immature granulocytes/100 WBC (Bld) 1.5 % High 0.0 - 0.5 % [facility] LYMPHOCYTES ABSOLUTE AUTO 2.7 [facility] Lymphocytes/100 WBC (Bld) 20.2 % Low 20 .5 - 60.0 % [facility] MCH (RBC) [Entitic mass] 31.4 pg 26. 7 - 34.0 pg [facility] MCHC (RBC) [Mass/Vol] 34.2 g/dL 29.9 - 35.2 g/dL [facility] MCV (RBC) [Entitic vol] 91.7 fL 81.0 - 99.0 fL [facility] MONOCYTES ABSOLUTE AUTO 0.8 N [facility] Monocytes/100 WBC (Bld) 6.2 % 1.7 - 12.0 % [facility] NEUTROPHILS ABSOLUTE AUTO 9.4 High [facility] Neutrophils/100 WBC (Bld) 71.1 % 43 .0 - 75.0 % [facility] Platelet mean volume (Bld) [Entitic vol] 9 fL Low 9.5 - 13.5 fL [facility] TBH EO # 0.1 [facility] TB PLT 320 [facility] TB RBC 3.73 Low [facility] TB WBC 13.2 High [facility] GLUCOSE 1 HOURon 01-28-2024 Glucose [Mass/Vol] 140 mg/dL High NINF - 13 0 mg/dL [facility] Healthcare No Panel Informationon 01-27 Interpretation and review of laboratory results Abnormal [facility] Urinalysis macro (dipstick) panel (U)on 01-11-2024 Bilirubin, UA Negative Negative - 4(70) +++ mg/dL [facility] Blood, UA Negative Negative - 50 Raul/mcL [facility] Healthcare Clarity, UA Clear [facility] Color, UA Yellow [facility] Glucose, UA Negative Negative - 1999(110) ++++ mg/dL [facility] Interpretation and review of laboratory results Normal [facility] Ketones, UA Negative Negative - 160(16) ++++ mg/dL [facility] Leukocytes, UA Negative Negative - 500+++ Anitra/mcL [facility] Nitrite, UA Negative Negative - Positive [facility] pH, UA 55 5 - 9 [facility] Healthcare Protein, UA Negative Negative - 1999(20) ++++ mg/dL [facility] Spec Grav, UA 1.02 1 - 1.03 [facility] Urobilinogen, UA 1.0 0.2 - 12 mg/dL [facility] Urinalysis macro (dipstick) panel (U)on 12-14-2023 Bilirubin, UA Negative Negative - 4(70) +++ mg/dL [facility] Blood, UA Negative Negative - 50 Raul/mcL [facility] Healthcare Clarity, UA Clear [facility] Color, UA Yellow [facility] Glucose, UA Negative Negative - 1999(110) ++++ mg/dL [facility] Interpretation and review of laboratory results Normal [facility] Ketones, UA Negative Negative - 160(16) ++++ mg/dL [facility] Leukocytes, UA Negative Negative - 500+++ Anitra/mcL [facility] Healthcare Nitrite, UA Negative Negative - Positive [facility] pH, UA 5.5 5 - 9 [facility] Healthcare Protein, UA Negative Negative - 1999(20) ++++ mg/dL [facility] Healthcare Spec Grav, UA 1.025 1 - 1.03 [facility] Urobilinogen, UA 0.2 0.2 - 12 mg/dL [facility] Healthcare No Panel InformationOrdered By: Christopher Ma on 12-08-2023 Quick Strep (POC) [facility] IGP,APTIMA HPV,AGE GDLNon AGE GDLN ACOG TESTING Note . [facility] Comment on above: TESTS RESULT FLAG [facility] Clinician Provided Cytology Information Source.............Cervix No. of containers..01 ThinPrep Vial Age Algo ACOG Radha... FLAG LEGEND: L-Low Normal,H-High Normal,LL-Alert Low,HH-Alert High <-Panic Low,>-Panic High,A-Abnormal,AA-Critical Abnormal Performed at: 01 =[address] [facility] [address] Luz Marina Swann MD, IGP, RFX APTIMA HPV ASCU Note . [facility] Comment on above: TESTS RESULT FLAG [facility] DIAGNOSIS: 02 NEGATIVE FOR INTRAEPITHELIAL LESION OR MALIGNANCY. Specimen adequacy: 02 Satisfactory for evaluation. No endocervical component is identified. Performed by: Quentin Paige Rental Sales Associate ([facility]) . 02 Note: Note 02 The Pap [...] <-Panic Low,>-Panic High,A-Abnormal,AA-Critical Abnormal Performed at: [address] [phone] Luz Marina Swann MD, Performed at: = - [facility] [id number] Labor Relations Analyst: Luz Marina Swann MD, Phone: [phone] Performed at: [address] [id number] Labor Relations Analyst: Luz Marina Swann MD, Phone: [phone] SP[facility]ALONE CERVIX [facility] URETHRITIS/DISCHARGE PLUS VA GINITIS (HTRX)on 11-19-2023 ATOPOBIUM VAGINAE 30.582 Abnormal [facility] ATOPOBIUM VAGINAE Detected Abnormal [facility] BVAB 2,3 (BACTERIAL VAGINOSIS ASSOCIATED BACTERIA 2, 3); MOBILUNCUS SPP 22.805 Abnormal [facility] BVAB 2,3 (BACTERIAL VAGINOSIS ASSOCIATED BACTERIA 2, 3); MOBILUNCUS SPP Detected Abnormal [facility] KEVIN ALBICANS, PARAPSILOSIS, TROPICALIS 0.000 [facility] KEVIN ALBICANS, PARAPSILOSIS, TROPICALIS Not detected [facility] KEVIN GLABRATA 0.000 [facility] KEVIN GLABRATA Not detected [facility] KEVIN KRUSEI 0.000 [facility] KEVIN KRUSEI Not detected [facility] CHLAMYDIA TRACHOMATIS 0.000 [facility] CHLAMYDIA TRACHOMATIS Not detected [facility] ERMB, C; MEFA 25.492 Abnormal [facility] ERMB, C; MEFA Detected Abnormal [facility] GARDNERELLA VAGINALIS 27.081 Abnormal [facility] GARDNERELLA VAGINALIS Detected Abnormal [facility] Interpretation and review of laboratory results Abnormal [facility] MEGASPHAERA (TYPES 1, 2) 0.000 [facility] MEGASPHAERA (TYPES 1, 2) Not detected [facility] MYCOPLASMA GENITALIUM 0.000 [facility] MYCOPLASMA GENITALIUM Not detected N [facility] NEISSERIA GONORRHOEAE 0.000 [facility] NEISSERIA GONORRHOEAE Not detected N [facility] TET B, TET M 23.652 Abnormal [facility] TET B, TET M Detected Abnormal [facility] TRICHOMONAS VAGINALIS 0.000 [facility] TRICHOMONAS VAGINALIS Not detected N [facility] Urinalysis macro (dipstick) panel (U)on 11-16-2023 Bilirubin, UA Positive Negative - 4(70) +++ mg/dL [facility] Comment on above: small Blood, UA Negative Negative - 50 Raul/mcL [facility] Clarity, UA Clear [facility] Color, UA Yellow [facility] Glucose, UA Negative Negative - 1999(110) ++++ mg/dL [facility] Interpretation and review of laboratory results Normal [facility] Ketones, UA Positive Negative - 160(16) ++++ mg/dL [facility] Comment on above: trace Leukocytes, UA Negative Negative - 500+++ Anitra/mcL [facility] Nitrite, UA Negative Negative - Positive [facility] pH, UA 5.5 5 - 9 [facility] Protein, UA Negative Negative - 1999(20) ++++ mg/dL [facility] Spec Grav, UA 1.030 1 - 1.03 [facility] Urobilinogen, UA 1.0 0.2 - 12 mg/dL [facility] BMPon 09-22-2023 Anion gap [Moles/Vol] 13 mmol/L Normal 6-16 [facility] Comment on above: Performed By: #### 2 [id number] #### [facility] [address] [place] [address] Calcium [Mass/Vol] 8.9 mg/dL Normal 8.9-11.1 [facility] Comment on above: Performed By: #### 2 [id number] #### [facility] [address] [place] [address] Chloride [Moles/Vol] 103 mmol/L Normal 101-111 [facility] Comment on above: Performed By: #### 2 [id number] #### [facility] [address] [place] [address] CO2 [Moles/Vol] 21 mmol/L Normal 21-31 [facility] Comment on above: Performed By: #### 2 [id number] #### [facility] [address] [place] [address] Creatinine [Mass/Vol] 0.6 mg/dL Normal 0.5-1.3 [facility] Comment on above: Performed By: #### 2 [id number] #### [facility] [address] [place] [address] Glucose [Mass/Vol] 89 mg/dL Normal 55-199 [facility] Comment on above: Performed By: #### 2 [id number] #### [facility] [address] [place] [place] [address] Potassium [Moles/Vol] 3.5 mmol/L Normal 3.5-5.3 [facility] Comment on above: Performed By: #### 2 [id number] #### [facility] [address] [place] [address] Sodium [Moles/Vol] 133 mmol/L Low 135-145 [facility] Comment on above: Performed By: #### 2 [id number] #### [facility] [address] [place] [address] Urea nitrogen [Mass/Vol] 5 mg/dL Normal 5-21 [facility] Comment on above: Performed By: #### 2 [id number] #### [facility] [address] [place] [address] Urea nitrogen/Creatinine [Mass ratio] 8 No Units Low 10-20 [facility] Comment on above: Performed By: #### 2 [id number] #### [facility] [address] [place] [address] CBC w/ Auto Diffon 4 Basophils/100 WBC (Bld) 0.2 % Normal 0.0-2.0 [facility] Comment on above: Performed By: #### 2 [id number] #### [facility] [address] [place] [address] Basophils/Leukocytes Auto (Bld) [Pure # fraction] 0.0 E9/L Normal 0.0-0.2 [facility] Comment on above: Performed By: #### 2 [id number] #### [facility] [address] [place] [address] Eosinophils (Bld) [#/Vol] 0.1 E9/L Normal 0.0-0.5 [facility] Comment on above: Performed By: #### 2 [id number] #### [facility] [address] [place] [address] Eosinophils/100 WBC (Bld) 0.7 % Normal 0.0-8.0 [facility] Comment on above: Performed By: #### 2 [id number] #### [facility] [address] [place] [address] Erythrocyte distribution width (RBC) [Ratio] 13.1 % Normal 10.9-14.2 [facility] Comment on above: Performed By: #### 2 [id number] #### [facility] [address] [place] [address] Hematocrit (Bld) [Volume fraction] 39.9 % Normal 34.0-46.0 [facility] Comment on above: Performed By: #### 2 035071 #### [facility] [address] [place] [address] Hemoglobin (Bld) [Mass/Vol] 14.0 g/dL Normal 12.0-16.0 [facility] Comment on above: Performed By: #### 2 762504 #### [facility] [address] [place] [address] Lymphocytes (Bld) [#/Vol] 1.8 E9/L Normal 1.0-4.0 [facility] Comment on above: Performed By: #### 2 040395 #### [facility] [address] [place] [address] Lymphocytes/100 WBC (Bld) 18.5 % Normal 14.0-50.0 [facility] Comment on above: Performed By: #### 2 776062 #### [facility] [address] [place] [address] MCH (RBC) [Entitic mass] 31.9 pg Normal 27.0-34.0 [facility] Comment on above: Performed By: #### 2 476063 #### [facility] [address] [place] [address] MCHC (RBC) [Mass/Vol] 35.2 g/dL Normal 31.4-36.0 [facility] Comment on above: Performed By: #### 2 440320 #### [facility] [address] [place] [address] MCV (RBC) [Entitic vol] 90.5 fL Normal 80.0-100.0 [facility] Comment on above: Performed By: #### 2 200997 #### [facility] [address] [place] [address] Monocytes (Bld) [#/Vol] 0.5 E9/L Normal 0.2-1.0 [facility] Comment on above: Performed By: #### 2 664441 #### [facility] [address] [place] [address] Neutrophils (Bld) [#/Vol] 7.3 E9/L Normal 2.0-7.5 [facility] Comment on above: Performed By: #### 2 115123 #### [facility] [address] [place] [address] Neutrophils/100 WBC (Bld) 75.5 % High 36.0-75.0 [facility] Comment on above: Performed By: #### 2 065678 #### [facility] [address] [place] [address] Platelet 415.0 E9/L Normal 150.0-500.0 [facility] Comment on above: Performed By: #### 2 029822 #### [facility] [address] [place] [address] Platelet mean volume (Bld) [Entitic vol] 6.6 fL Normal 6.4-10.8 [facility] Comment on above: Performed By: #### 2 449991 #### [facility] [address] [place] [address] RBC (Bld) [#/Vol] 4.4 E12/L Normal 4.3-5.9 [facility] Comment on above: Performed By: #### 2 433278 #### [facility] [address] [place] [address] WBC corrected for nucl RBC Auto (Bld) [#/Vol] 9.7 E9/L Normal 4.0-11.0 [facility] Comment on above: Performed By: #### 2 284061 #### [facility] [address] [place] [address] CHEMISTRYOrdered By: SYSTEM SYSTEM on 09-22-2023 Albumin [...] 2023 ED Clinical Summary ED Clinical Summary [address] [address] ED Clinical Summary Person Information Name: SEBASTIAN ALEMAN [place] Age: 22 Years : 2000 Sex: Female Language: Nigerien PCP: NONE, XXXX Marital Status: Single Visit [...] 09/22/2023 07:17:18 09/22/2023 07:17:18 09/22/2023 07:17:18 ADDRESS: [address] [place] [id number] PHYS DOC NOTES: MEDICAL INFORMATION: Prescriptions Given: New Medications [facility]/pharmacy #[id number], [address] [place], [place] [id number], [phone] cephalexin (Keflex 500 mg Cap) 1 Capsules [...] Bacteriuria Follow up: With: Address: When: Bakari HIT[facility], [address] [place] [address] [place], [place] [id number] Business (1) In 3 days 09/25/2023 DIAGNOSIS: Asymptomatic bacteriuria during ; Bacteriuria; Nausea and vomiting during Normal [facility] ED Note-Physicianon 09-22-19 ED Note-Physician ED [...] that she was prescribed Zofran by her 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 Proctor her established [employer]ING AND REGULATING CHIEF. Shared decision making: As above Code status: N/A Assessment/Plan Asymptomatic bacteriuria during (O99.891: Other specified diseases and conditions complicating ) Bacteriuria (R82.71: Bacteriuria) Nausea and vomiting during (O21.9: Vomiting of , unspecified) Orders: cephalexin, 500 mg = 1 cap(s), Oral, q12hr, X 5 day(s), # 10 cap(s), Refills(s) 0, Pharmacy: [facility]/pharmacy #[id number], 160, cm, 09/22/23 5:34:00 EDT, Height/Length Dosing, 72.4, kg, 09/22/23 5:34:00 EDT, Weight Dosing Lactated Ringers Injection, 1,000 mL, Soln-IV, IV, Once, Stop date 09/22/23 5:38:00 EDT, STAT, Start date 09/22/23 5:38:00 EDT, mL/hr, Infuse over 61, minute(s) promethazine, 12.5 mg = 1 tab(s), Oral, q8hr, PRN as needed for nausea/vomiting, # 12 tab(s), Refills(s) 0, Pharmacy: [facility]/pharmacy #[id number], 160, cm, 09/22/23 5:34:00 [...] Cult Rflx Urine Culture Medications Administered Given [id number] [F], 1000 mL, IV Sodium Chloride 0.9% IV Kaylyn 50 mL [F] 50 mL + [id number] [F] 12.5 mg, IV Piggyback Disposition Plan Discharge Prescription List Prescriptions Keflex 500 mg Cap, 500 mg= 1 cap(s), Oral, q12hr promethazine 12.5 mg oral tablet, 12.5 mg= 1 tab(s), Oral, q8hr, PRN Follow-up With When Contact Information Bakari PROCTOR In 3 days 09/25/[address] , [place] [address] Business (1) Additional Instructions: Patient Education Morning Sickness Asymptomatic Bacteriuria Problem List/Past Medical History Ongoing Anxiety History of cold sores Right otitis media Historical Denies Depression Procedure/Surgical History None. Medications Inpatient LR 1000 mL Bolus, 1000 mL, IV, Once promethazine additive 12.5 mg + Sodium Chloride 0.9% IV Kaylyn 50 (more content not included)... Normal [facility] Comment on above: Result Comment: Elec tronically Signed By: Rodrigo Berg DO\.br\Date and Time Signed: 09/22/23 06:44 EDT ED Patient Summaryon ED Patient Summary ED Patient Summary [address] [address] Patient Discharge Instructions Person Information Name: SEBASTIAN ALEMAN Age: 22 Years Arrival Date: 09/22/2023 05:24:18 Discharge Diagnosis: Asymptomatic bacteriuria during ; Bacteriuria; Nausea and vomiting during Primary Care Physician: NONE, XXXX Provider Information Primary Provider: Rodrigo Berg DO Advanced Sports Physician:None The exam and treatment you received in the Emergency Department were for an urgent problem and are not intended as complete care. It is important that you follow up with a doctor, nurse practitioner, or physician?s certified medical technician assistant for ongoing care. If your symptoms become worse or you do not improve as expected and you are unable to reach your usual health care provider, you should return to the Emergency Department. We are available 24 hours a day. DHEERAJ ALEMANLORRAINE Godwin has been given the following list of patient education materials, prescriptions and follow-up instructions: Follow-up Instructions: With: Address: When: Bakari HITESH [facility], [address] [place] [address] [place] [address] Business (1) In 3 days 09/25/2023 In the event that this physician does not participate in your insurance network, please consult with your insurance company to find a nearby participating provider. Patient Education Materials: Morning Sickness; Asymptomatic Bacteriuria A MESSAGE TO ALL PATIENTS REGARDING OPIOIDS PRESCRIPTION OPIOIDS: WHAT YOU NEED TO KNOW Prescription opioids can be used to help relieve ggvccbgr-as-irmdsj pain and are often prescribed following a [...] tell y (more content not included)... Normal [facility] HEMATOLOGYOrdered By: SYSTEM SYSTEM on 09-22-2023 [...] 09-22-2023 Albumin [Mass/Vol] 4.2 g/dL Normal 3.3-5.0 [facility] Comment on above: Performed By: #### 2 [id number] #### [facility] [address] [place] [address] Albumin/Globulin (S) [Mass conc ratio] 1.3 Normal 1.1-2.2 [facility] Comment on above: Performed By: #### 2 [id number] #### [facility] [address] [place] [address] ALP [Catalytic activity/Vol] 68 Int._Unit/L Normal 21-98 [facility] Comment on above: Performed By: #### 2 558392 #### [facility] [address] [place] [address] ALT No additional P-5'-P [Catalytic activity/Vol] 18 Int._Unit/L Normal 6-46 [facility] Comment on above: Performed By: #### 2 [id number] #### [facility] [address] [place] [address] AST [Catalytic activity/Vol] 17 Int._Unit/L Normal 5-43 [facility] Comment on above: Performed By: #### 2 428287 #### [facility] [address] [place] [address] Bilirubin [Mass/Vol] 0.5 mg/dL Normal 0.0-1.1 [facility] Comment on above: Performed By: #### 2 659769 #### [facility] [address] [place] [address] Bilirubin.direct [Mass/Vol] 0.1 mg/dL Normal 0.0-0.4 [facility] Comment on above: Performed By: #### 2 [id number] #### [facility] [address] [place] [address] Bilirubin.indirect [Mass or moles/Vol] 0.4 mg/dL Normal 0.1-0.9 [facility] Comment on above: Performed By: #### 2 104514 #### [facility] [address] [place] [address] Globulin (S) [Mass/Vol] 3.2 g/dL Normal 1.4-4.0 [facility] Comment on above: Performed By: #### 2 144368 #### [facility] [address] [place] [address] Protein [Mass/Vol] 7.4 g/dL Normal 6.0-7.8 [facility] Comment on above: Performed By: #### 2 [id number] #### [facility] [address] [place] [address] Lipase Levelon 09-22-2023 Lipase [Catalytic activity/Vol] 30 U/L Normal 13-58 [facility] Comment on above: Performed By: #### 2 [id number] #### [facility] [address] [place] [address] UA with Cult Rflxon 09-22-19 24 Bacteria Auto Ql (U) 2+ /HPF Abnormal Trace Fish er [facility] Comment on above: Performed By: #### 4 [id number] #### [facility] [address] [place] [address] Bilirubin Ql (U) Negative Normal Negative [facility] Comment on above: Performed By: #### 4 [id number] #### [facility] [address] [place] [address] Clarity (U) Ex.Turbid Abnormal Clear [facility] Comment on above: Performed By: #### 4 [id number] #### [facility] [address] [place] [address] Color (U) Yellow Normal Yellow [facility] Comment on above: Result Comment: Micr oscopic readings are only performed on those samples that meet specific criteria set forth by [facility]. Performed By: #### 4 [id number] #### [facility] [address] [place] [address] Epithelial cells.squamous Auto (Urine sed) [#/Area] >10 Invalid Interpretation Code [facility] Comment on above: Performed By: #### 4 [id number] #### [facility] [address] [place] [address] Glucose Ql (U) Negative Normal Negative [facility] Comment on above: Performed By: #### 4 [id number] #### [facility] [address] [place] [address] Hemoglobin Auto test strip (U) [Mass/Vol] Negative Normal Negative [facility] Comment on above: Performed By: #### 4 [id number] #### [facility] [address] [place] [address] Ketones Auto test strip Ql (U) 4+ mg/dL Abnormal Negative [facility] Comment on above: Performed By: #### 4 [id number] #### [facility] [address] [place] [address] Leukocyte esterase Auto test strip Ql (U) 250 Anitra/uL Abnormal Negative [facility] Comment on above: Performed By: #### 4 [id number] #### [facility] [address] [place] [address] Mucus Auto Ql (U) 3+ Abnormal Negative [facility] Comment on above: Performed By: #### 4 [id number] #### [facility] [address] [place] [address] Nitrite Auto test strip Ql (U) Negative Normal Negative [facility] Comment on above: Performed By: #### 4 [id number] #### [facility] [address] [place] [address] pH (U) 6.0 [pH] Invalid Interpretation Code 5.0-9.0 [facility] Comment on above: Performed By: #### 4 [id number] #### [facility] [address] [place] [address] Protein Ql (U) Trace Abnormal Negative [facility] Comment on above: Performed By: #### 4 [id number] #### [facility] [address] [place] [address] Specific gravity (U) [Rel density] 1.023 Invalid Interpretation Code 1.005-1.030 [facility] Comment on above: Performed By: #### 4 [id number] #### [facility] [address] [place] [address] Urobilinogen (U) [Mass/Vol] Negative Normal Negative [facility] Comment on above: Performed By: #### 4 [id number] #### [facility] [address] [place] [address] WBC Auto (Urine sed) [#/Area] 31-75 Abnormal 0-5 [facility] Comment on above: Performed By: #### 4 [id number] #### [facility] [address] [place] [address] Type of Urine collection method Clean Catch Normal [facility] Comment on above: Performed By: #### 4 [id number] #### [facility] [address] [place] [address] URINALYSISOrdered By: Jennifer Santacruz on 09-22-2023 Bacteria [...] that meet specific criteria set forth by [facility]. Epithelial cells.squamous Auto (Urine sed) [...] strip Ql (U) Negative Normal Negativemg/d L [facility] UA Auto SS pH (U) 6.0 *NA* (09/22/23 5:47 AM) Invalid Interpretation Code 5.0 - 9.0 [facility] UA Auto SS Protein Ql (U) Trace mg/dL Invalid Interpretation Code Negativemg/d L [facility] UA Auto SS Specific gravity (U) [Rel density] 1.023 *NA* (09/22/23 5:47 AM) Invalid Interpretation Code 1.005 - 1.030 [facility] UA Auto SS Urobilinogen (U) [Mass/Vol] Negative Normal Negativemg/d L [facility] UA Auto SS WBC Auto (Urine sed) [#/Area] 31-75 *ABN* (09/22/23 5:47 AM) Invalid Interpretation Code 0-5 [facility] UA Auto SS URINALYSISOrdered By: Rodrigo leung on 09-22-2023 UA Spec Desc Clean Catch (09/22/23 5:47 AM) Normal [facility] UA Auto SS Work Phone: eGFRon 09-22-2023 eGFR 128 mL/min/1.73 m2 Normal >=59 [facility] Comment on above: Order Comment: Order added by Discern Expert. Performed By: #### 1 [id number] #### [facility] [address] [place] [address] PAP [id number] 07-19-2023 Cytology report Cyto stain Doc (Cvx/Vag) Note Invalid Interpretation Code [facility] Comment on above: Result Comment: TEST S RESULT FLAG UNITS REF RANGE LAB Clinician Provided Cytology Information Source.............Endocervix No. of containers..01 ThinPrep Vial DIAGNOSIS: 01 NEGATIVE FOR INTRAEPITHELIAL LESION OR MALIGNANCY. Specimen adequacy: 01 Satisfactory for evaluation. Endocervical and/or squamous metaplastic cells (endocervical component) are present. Performed by: 01 Puneet Elise Rental Sales Associate (ASC) . 01 Note: Note 01 The Pap smear is a screening test designed to aid in the detection of premalignant and malignant conditions of the uterine cervix. It is not a diagnostic procedure and should not be used as the sole means of detecting cervical cancer. Both false-positive and false-negative reports do occur. Test Methodology: Note 01 The FlowBelow Aero Prep(R) Tumbler Drier Operator was unable to read this specimen. Therefore a manual review was performed. . 01 The HPV DNA reflex criteria were not met with this specimen result therefore, no HPV testing was performed. FLAG LEGEND: L-Low Normal,H-High Normal,LL-Alert Low,HH-Alert High <-Panic Low,>-Panic High,A-Abnormal,AA-Critical Abnormal Performed at: [address] [facility] [id number] Luz Marina Swann MD, Performed at: [facility] [address] [id number] MD Shree Raza Performed By: #### 3 [id number] #### [facility] [address] [place] [address] PAP [id number] 07-16-2023 Collection Technique BRUSH-SPATULA Normal F [facility] Comment on above: Performed By: #### 3 [id number] #### [facility] [address] [place] [address] Gynecological Body Site ENDOCERVIX Normal F [facility] Comment on above: Performed By: #### 3 [id number] #### [facility] [address] [place] [address] Physician Orderon 07-14-2023 Physician Order [id number] Normal [facility] DHEA SERUMon 08-11-2021 Dehydroepiandrosterone (DHEA) 339 ng/dL Normal [facility] Comment on above: Result Comment: Age 1 - 5 years 0 - 67 6 - 7 years 0 - 110 8 - 10 years 0 - 185 11 - 12 years 0 - 201 13 - 14 years 0 - 318 15 - 16 years 39 - 481 17 - 19 years 40 - 491 >19 years - 70 Performed By: #### Justin SERRANO. #### [facility] [address] [place] [address] Dr. Austen Hernadez DHEA-SULFATEon 08-01-2021 DHEA-Sulfate 247.0 ug/dL Normal 110.0-431.7 [facility] Comment on above: Performed By: #### Justin LEBLANC #### [facility] [address] [place] [address] Dr. Austen Hernadez FSHon 08-01-2021 FSH 1.6 mIU/mL Normal [facility] Comment on above: Result Comment: Adul t Female: Follicular phase 3.5 - 12.5 Ovulation phase 4.7 - 21.5 Luteal phase 1.7 - 7.7 Postmenopausal 25.8 - 134.8 Performed By: #### L BCFS #### [facility] [address] [place] [address] Dr. Austen Hernadez LUTEINIZING HORMONE (LH)on 0 08-01-2021 LH 2.6 mIU/mL Normal [facility] Comment on above: Result Comment: Adul t Female: Follicular phase 2.4 - 12.6 Ovulation phase 14.0 - 95.6 Luteal phase 1.0 - 11.4 Postmenopausal 7.7 - 58.5 Performed By: #### L BCLH #### [facility] [address] [place] [address] Dr. Austen Hernadez CBC AUTO DIFFon 07-30-2021 BASO # 0.0 103/ul Normal 0.0-0.1 [facility] Comment on above: Performed By: #### C BC #### [facility] [address] [address] [address] Austen Hernadez Basophils/100 WBC (Bld) 0.2 % Normal 0.2-2.0 [facility] Comment on above: Performed By: #### C BC #### [facility] [address] [address] [address] Austen Hernadez EO # 0.1 103/ul Normal 0.0-0.7 [facility] Comment on above: Performed By: #### C BC #### [facility] [address] [address] [address] Austen Hernadez Eosinophils/100 WBC (Bld) 1.2 % Normal 0.9-7.0 [facility] Comment on above: Performed By: #### C BC #### [facility] [address] [address] [address] Austen Hernadez Erythrocyte distribution width (RBC) [Ratio] 12.1 % Normal 11.0-15.0 [facility] Comment on above: Performed By: #### C BC #### [facility] [address] [place] [address] Dr. Austen Hernadez Hematocrit (Bld) [Volume fraction] 40.2 % Normal 36.0-48.0 [facility] Comment on above: Performed By: #### C BC #### [facility] [address] [place] [address] Dr. Austen Hernadez Hemoglobin (Bld) [Mass/Vol] 13.3 g/dL Normal 12.0-16.0 [facility] Comment on above: Performed By: #### C BC #### [facility] [address] [address] [address] Austen Hernadez IG # 0.04 10e3/ul Critically high 0.00-0.03 [facility] Comment on above: Performed By: #### C BC #### [facility] [address] [address] [address] Austen Hernadez IG % 0.5 % Normal 0.0-0.5 [facility] Comment on above: Performed By: #### C BC #### [facility] [address] [address] [address] Austen Hernadez LYMPH # 1.7 103/ul Normal 1.2-3.8 [facility] Comment on above: Performed By: #### C BC #### [facility] [address] [place] [address] Dr. Austen Hernadez Lymphocytes/100 WBC (Bld) 20.1 % Critically low 20.5-6 0.0 [facility] Comment on above: Performed By: #### C BC #### [facility] [address] [place] [address] Dr. Austen Hernadez MANUAL DIFF REQ NO Normal [facility] Comment on above: Performed By: #### C BC #### [facility] [address] [place] [address] Dr. Austen Hernadez MCH (RBC) [Entitic mass] 30.0 pg Normal 26.7-34.0 [facility] Comment on above: Performed By: #### C BC #### [facility] [address] [place] [address] Dr. Austen Hernadez MCHC (RBC) [Mass/Vol] 33.1 g/dL Normal 29.9-35.2 [facility] Comment on above: Performed By: #### C BC #### [facility] [address] [place] [address] Dr. Austen Hernadez MCV (RBC) [Entitic vol] 90.5 fL Normal 81.0-99.0 [facility] Comment on above: Performed By: #### C BC #### [facility] [address] [place] [address] Dr. Austen Hernadez MONO # 0.5 103/ul Normal 0.3-0.8 [facility] Comment on above: Performed By: #### C BC #### [facility] [address] [place] [address] Dr. Austen Hernadez Monocytes/100 WBC (Bld) 5.8 % Normal 1.7-12.0 [facility] Comment on above: Performed By: #### C BC #### [facility] [address] [address] [address] Austen Hernadez NEUT # 6.2 103/ul Normal 1.4-6.5 [facility] Comment on above: Performed By: #### C BC #### [facility] [address] [place] [address] Dr. Austen Hernadez Neutrophils/100 WBC (Bld) 72.2 % Normal 43.0-75.0 [facility] Comment on above: Performed By: #### C BC #### [facility] [address] [place] [address] Dr. Austen Hernadez Platelet mean volume (Bld) [Entitic vol] 8.2 fL Critically low 9.5-13.5 [facility] Comment on above: Performed By: #### C BC #### [facility] [address] [place] [address] Dr. Austen Hernadez PLT 350 103/ul Normal 150-450 [facility] Comment on above: Performed By: #### C BC #### [facility] [address] [place] [address] Dr. Austen Hernadez RBC 4.44 106/ul Normal 4.20-5.40 [facility] Comment on above: Performed By: #### C BC #### [facility] [address] [place] [address] Dr. Austen Hernadez WBC 8.6 103/ul Normal 4.0-11.0 [facility] Comment on above: Performed By: #### C BC #### [facility] [address] [place] [address] Dr. Austen Hernadez GLYCOHEMOGLOBIN A1Con 2021 ADA RECOMMENDATION SEE BELOW Normal [facility] Comment on above: Result Comment: ADA RECOMMENDED LIMIT 4.0 - 6.0 ADA THERAPEUTIC TARGET < 7.0 ACTION SUGGESTED > 7.0 Performed By: #### A 1C #### [facility] [address] [place] [address] Dr. Austen Hernadez Glucose [Mass/Vol] 108 mg/dL Normal [facility] Comment on above: Performed By: #### A 1C #### [facility] [address] [address] [address] Austen Hernadez HbA1c (Bld) [Mass fraction] 5.4 % Normal 4.5-6.2 [facility] Comment on above: Performed By: #### A 1C #### [facility] [address] [place] [address] Dr. Austen Hernadez TSHon 07-30-2021 TSH 1.365 uIU/mL Normal 0.358-3.740 [facility] Comment on above: Performed By: #### T SH #### [facility] [address] [place] [address] Dr. Austen Hernadez TSH RANGE SEE BELOW Normal [facility] Comment on above: Result Comment: <0.3 4 UIU/ml HYPERTHYROID 0.34-5.60 UIU/ml EUTHYROID >5.60 UIU/ml HYPOTHYROID Performed By: #### T SH #### [facility] [address] [place] [address] Dr. Austen Hernadez US PELVIS AND TRANSVAGon [...] by: MACARENA GARCIA Date: 2021-07-30 15:31 Normal [facility] Vital Signs Date Time Vital Sign Value Performing Clinician Facility 11-15-2024 13:31-0400 Body mass index (BMI) [Ratio] 31.18 kg/m2 [facility] 11-15-2024 13:31-0400 Body weight 79.83 kg Hitseh Ob [facility] 11-15-2024 13:31-0400 Diastolic blood pressure 70 mm[Hg] Hitesh Ob [facility] 11-15-2024 13:31-0400 Systolic blood pressure 120 mm[Hg] Hitesh Ob [facility] 06-04-2024 11:27-0400 Body mass index (BMI) [Ratio] 29.23 kg/m2 Valentina Suzi PA Work Phone: [facility] 06-04-2024 11:27-0400 Body weight 74.84 kg Valentina Suzi PA Work Phone: [facility] 06-04-2024 11:27-0400 Diastolic blood pressure 70 mm[Hg] Valentina Suzi PA Work Phone: [facility] 06-04-2024 11:27-0400 Systolic blood pressure 120 mm[Hg] Valentina Cordova PA Work Phone: [facility] 04-19-2024 10:27-0500 Body mass index (BMI) [Ratio] 32.47 kg/m2 Bakari Hitesh DO Work Phone: [facility] 04-19-2024 10:27-0500 Body weight 83.14 kg Bakari Hitesh DO Work Phone: [facility] 04-19-2024 10:27-0500 Diastolic blood pressure 74 mm[Hg] Baakri Hitesh DO Work Phone: [facility] 04-19-2024 10:27-0500 Systolic blood pressure 118 mm[Hg] Bakari Hitesh DO Work Phone: [facility] 04-11-2024 14:32-0500 Body mass index (BMI) [Ratio] 32.42 kg/m2 Valentina Gepp PA Work Phone: [facility] 04-11-2024 14:32-0500 Body weight 83.01 kg Valentina Suzi PA Work Phone: [facility] 04-11-2024 14:32-0500 Diastolic blood pressure 78 mm[Hg] Valentina VARGAS Work Phone: [facility] 04-11-2024 14:32-0500 Systolic blood pressure 114 mm[Hg] Valentina VARGAS Work Phone: [facility] 04-03-2024 14:06-0500 Body mass index (BMI) [Ratio] 32.38 kg/m2 Bakari Hitesh DO Work Phone: [facility] 04-03-2024 14:06-0500 Body weight 82.92 kg Bakari Hitesh DO Work Phone: [facility] 04-03-2024 14:06-0500 Diastolic blood pressure 72 mm[Hg] Bakari Hitesh DO Work Phone: [facility] 04-03-2024 14:06-0500 Systolic blood pressure 118 mm[Hg] Bakari Hitesh DO Work Phone: [facility] 03-27-2024 14:43-0500 Body mass index (BMI) [Ratio] 31.78 kg/m2 Bakari Hitesh DO Work Phone: [facility] 03-27-2024 14:43-0500 Body weight 81.38 kg Bakari Hitesh DO Work Phone: [facility] 03-27-2024 14:43-0500 Diastolic blood pressure 68 mm[Hg] Bakari Hitesh DO Work Phone: [facility] 03-27-2024 14:43-0500 Systolic blood pressure 104 mm[Hg] Bakari Hitesh DO Work Phone: [facility] 03-12-2024 13:34-0500 Body mass index (BMI) [Ratio] 31.53 kg/m2 Valentina VARGAS Work Phone: [facility] 03-12-2024 13:34-0500 Body weight 80.74 kg Valentina VARGAS Work Phone: [facility] 03-12-2024 13:34-0500 Diastolic blood pressure 60 mm[Hg] Valentina Gepp PA Work Phone: [facility] 03-12-2024 13:34-0500 Systolic blood pressure 100 mm[Hg] Valentina Suzi PA Work Phone: [facility] 02-23-2024 15:40-0500 Body mass index (BMI) [Ratio] 30.82 kg/m2 Valentina Suzi PA Work Phone: [facility] 02-23-2024 15:40-0500 Body weight 78.93 kg Valentina Gepp PA Work Phone: [facility] 02-23-2024 15:40-0500 Diastolic blood pressure 76 mm[Hg] Valentina Gepp PA Work Phone: [facility] 02-23-2024 15:40-0500 Systolic blood pressure 116 mm[Hg] Valentina Gepp PA Work Phone: [facility] 02-08-2024 15:51-0500 Body mass index (BMI) [Ratio] 30.11 kg/m2 Bakari Hitesh DO Work Phone: [facility] 02-08-2024 15:51-0500 Body weight 77.11 kg Bakari Hitesh DO Work Phone: [facility] 02-08-2024 15:51-0500 Diastolic blood pressure 72 mm[Hg] Bakari Hitesh DO Work Phone: [facility] 02-08-2024 15:51-0500 Systolic blood pressure 118 mm[Hg] Bakari Hitesh DO Work Phone: [facility] 01-11-2024 14:51-0400 Body mass index (BMI) [Ratio] 28.84 kg/m2 Valentina Gepp PA Work Phone: [facility] 01-11-2024 14:51-0400 Body weight 73.85 kg Valentina Gepp PA Work Phone: [facility] 01-11-2024 14:51-0400 Diastolic blood pressure 64 mm[Hg] Valentina Gepp PA Work Phone: [facility] 01-11-2024 14:51-0400 Systolic blood pressure 102 mm[Hg] Valentina VARGAS Work Phone: [facility] 01-02-2024 10:36-0400 Body height 160 cm Steffanie York MD Work Phone: [facility] 01-02-2024 10:36-0400 Body mass index (BMI) [Ratio] 28.48 kg/m2 Steffanie York MD Work Phone: [facility] 01-02-2024 10:36-0400 Body weight 72.94 kg Steffanie York MD Work Phone: [facility] 01-02-2024 10:36-0400 Diastolic blood pressure 64 mm[Hg] Steffanie York MD Work Phone: [facility] 01-02-2024 10:36-0400 Heart rate 67 /min Steffanie York MD Work Phone: [facility] 01-02-2024 10:36-0400 Systolic blood pressure 100 mm[Hg] Steffanie York MD Work Phone: [facility] 12-14-2023 14:35-0400 Body mass index (BMI) [Ratio] 28.48 kg/m2 Bakari Hitesh DO Work Phone: [facility] 12-14-2023 14:35-0400 Body weight 72.92 kg Bakari Hitesh DO Work Phone: [facility] 12-14-2023 14:35-0400 Diastolic blood pressure 66 mm[Hg] Bakari Hitesh DO Work Phone: [facility] 12-14-2023 14:35-0400 Systolic blood pressure 108 mm[Hg] Bakari Hitesh DO Work Phone: [facility] 12-08-2023 17:27-0400 Body height 160.02 cm [facility] 12-08-2023 17:27-0400 Body mass index (BMI) [Ratio] 28.3 kg/m2 [facility] 12-08-2023 17:27-0400 Body temperature 98.6 [degF] [facility] 12-08-2023 17:27-0400 Body weight 72.57 kg [facility] 12-08-2023 17:27-0400 Diastolic blood pressure 69 mm[Hg] [facility] 12-08-2023 17:27-0400 Heart rate 87 /min [facility] 12-08-2023 17:27-0400 SaO2% (BldA) [Mass fraction] 97 % [facility] 12-08-2023 17:27-0400 Systolic blood pressure 107 mm[Hg] [facility] 11-16-2023 16:05-0400 Body mass index (BMI) [Ratio] 26.93 kg/m2 Bakari Hitesh DO Work Phone: [facility] 11-16-2023 16:05-0400 Body weight 68.95 kg Bakari Hitesh DO Work Phone: [facility] 11-16-2023 16:05-0400 Diastolic blood pressure 70 mm[Hg] Bakari Hitesh DO Work Phone: [facility] 11-16-2023 16:05-0400 Systolic blood pressure 118 mm[Hg] Bakari Hitesh DO Work Phone: [facility] 09-22-2023 07:00-0400 Diastolic blood pressure 85 mm[Hg] Rodrigo Morena [facility] 09-22-2023 07:00-0400 Heart rate 58 /min Rodrigo Morena [facility] 09-22-2023 07:00-0400 Mean blood pressure 94 mm[Hg] Rodrigo Morena [facility] 09-22-2023 07:00-0400 SaO2% (BldA) [Mass fraction] 100 % Rodrigo Morena [facility] 09-22-2023 07:00-0400 Systolic blood pressure 113 mm[Hg] Rodrigo Morena [facility] 09-22-2023 06:30-0400 Diastolic blood pressure 67 mm[Hg] Rodrigo Morena [facility] 09-22-2023 06:30-0400 Heart rate 62 /min Rodrigo Morena [facility] 09-22-2023 06:30-0400 Mean blood pressure 81 mm[Hg] Rodrigo Morena [facility] 09-22-2023 06:30-0400 Respiratory rate 16 /min Rodrigo Morena [facility] 09-22-2023 06:30-0400 SaO2% (BldA) [Mass fraction] 99 % Rodrigo Morena [facility] 09-22-2023 06:30-0400 Systolic blood pressure 110 mm[Hg] Rodrigo Morena [facility] 09-22-2023 05:52-0400 Diastolic blood pressure 66 mm[Hg] Rodrigo Morena [facility] 09-22-2023 05:52-0400 Heart rate 76 /min Rodrigo Morena [facility] 09-22-2023 05:52-0400 Mean blood pressure 80 mm[Hg] Rodrigo Morena [facility] 09-22-2023 05:52-0400 Respiratory rate 18 /min Rodrigo Morena [facility] 09-22-2023 05:52-0400 SaO2% (BldA) [Mass fraction] 98 % Rodrigo Morena [facility] 09-22-2023 05:52-0400 Systolic blood pressure 109 mm[Hg] Rodrigo Morena [facility] 09-22-2023 05:29-0400 Body temperature 98.96 [degF] Rodrigo Berg [facility] 09-22-2023 05:29-0400 Heart rate 67 /min Rodrigo Berg [facility] 07-18-2023 00:06-0400 Body height 160 cm Elva Servin MD Work Phone: [facility] 07-18-2023 00:06-0400 Body mass index (BMI) [Ratio] 30.11 kg/m2 Elva Servin MD Work Phone: [facility] 07-18-2023 00:06-0400 Body temperature 98.29 [degF] Elva Servin MD Work Phone: [facility] 07-18-2023 00:06-0400 Body weight 77.11 kg Elva Servin MD Work Phone: [facility] 07-18-2023 00:06-0400 Diastolic blood pressure 79 mm[Hg] Elva Servin MD Work Phone: [facility] 07-18-2023 00:06-0400 Heart rate 61 /min Elva Servin MD Work Phone: [facility] 07-18-2023 00:06-0400 Respiratory rate 16 /min Elva Servin MD Work Phone: [facility] 07-18-2023 00:06-0400 SaO2% (BldA) [Mass fraction] 96 % Elva Servin MD Work Phone: [facility] 07-18-2023 00:06-0400 Systolic blood pressure 132 mm[Hg] Elva Servin MD Work Phone: [facility] 07-07-2022 09:35-0400 Diastolic blood pressure 60 mm[Hg] Chris Banegas [facility] 07-07-2022 09:35-0400 Heart rate 83 /min Chris Banegas [facility] 07-07-2022 09:35-0400 SaO2% (BldA) [Mass fraction] 97 % Chris Banegas [facility] 07-07-2022 09:35-0400 Systolic blood pressure 100 mm[Hg] Chris Banegas [facility] Encounters Encounter Date Encounter Type Care Provider Facility Start: 11-15-2024 End: 11-15-2024 Office outpatient visit 5 minutes Hitesh Nurse [facility] Comment on above: GA: 6w3d Start: 11-15-2024 End: 11-15-2024 ambulatory BAKARI HITESH Not Available Start: 10-26-2024 End: 10-26-2024 ambulatory Bakari R HITESH Facility:[facility] Start: 06-04-2024 End: 06-04-2024 care visit Valentina VARGAS Work Phone: [facility] Comment on above: 6 weeks f ollow-up; Spontaneous vaginal delivery; Herpes simplex Start: 06-04-2024 End: 06-04-2024 ambulatory VALENTINA CORDOVA Not Available Start: 04-24-2024 End: 04-24-2024 Clinisync Result Encounter [...] Start: 04-11-2024 End: 04-11-2024 Bamboo flowsheet Valentina Cordova PA Work Phone: [facility] Start: 04-03-2024 [...] 35 weeks gestation of ; Mood disorder ([facility]) Start: 03-27-2024 End: 03-27-2024 Bamboo flowsheet [...] flow sheet Bakari Hitesh DO Work Phone: [facility] Comment on above: Third trimester preg nadia; 28 weeks gestation of Start: 02-08-2024 End: 02-08-2024 Bamboo flowsheet Bakari Hitesh DO Work Phone: [facility] Start: 02-08-2024 End: 02-08-2024 Bamboo flowsheet Bakari Hitesh DO Work Phone: [facility] Start: 02-02-2024 End: 02-02-2024 ambulatory [facility] Start: 02-01-2024 End: [...] Steffanie York MD Work Phone: [facility] [place] Comment on above: Partial placenta pre via (Primary Dx) Start: 01-02-2024 End: 01-02-2024 ambulatory [facility] Comment on above: Low-lying placenta ( Primary Dx); Personal history of cardiac murmur Start: 12-20-2023 End: 12-20-2023 Chart abstracting Steffanie York MD Work Phone: [facility] Start: 12-16-2023 End: 12-16-2023 Chart abstracting Steffanie York MD Work Phone: [facility] Start: 12-14-2023 End: 12-14-2023 flow sheet Bakari Hitesh DO Work Phone: [facility] Comment on above: Second trimester pre gnancy; 20 weeks gestation of ; Partial placenta previa Start: 12-14-2023 End: 12-14-2023 ambulatory BAKARI HITESH Not Available Start: 12-08-2023 End: 12-08-2023 ambulatory [facility] Work Phone: Start: 12-08-2023 End: 12-08-2023 Patient encounter procedure [facility] [place] Work Phone: Start: 11-16-2023 End: 11-16-2023 Patient encounter procedure Bakari Deeo DO Work Phone: [facility] Start: 11-16-2023 End: 11-16-2023 Periodic preventive med est patient 18-39 yrs Bakari Hitesh DO Work Phone: [facility] Comment on above: Well woman exam with routine gynecological exam; Second trimester ; Exposure to STD; Screening, , for anatomic survey; Need for maternal serum alpha-protein (MSAFP) screening Start: 11-16-2023 End: 11-16-2023 Bamboo flowsheet Bakari Hitesh DO Work Phone: [facility] Start: 11-16-2023 End: 11-20-2023 Clinisync Result Encounter Bakari Hitesh DO Work Phone: [facility] Unsolicited Start: 11-16-2023 End: 11-19-2023 External Result Encounter Bakari Hitesh DO Work Phone: [facility] Unsolicited Start: 11-16-2023 End: 11-20-2023 External Result Encounter Bakari Hitesh DO Work Phone: [facility] Unsolicited Start: 09-22-2023 End: 09-22-2023 Emergency department patient visit Rodrigo Berg [facility] Start: 07-18-2023 End: 07-18-2023 Emergency department patient visit ELVA SERVIN [facility] Start: 07-18-2023 End: 07-18-2023 Emergency department patient visit Elva Servin MD Work Phone: [facility] ED Comment on above: De Quervain's tenosy novitis, left (Primary Dx) Start: 07-14-2023 End: 07-14-2023 ambulatory Love Palmer Facility:[facility] Start: 07-14-2023 End: 07-14-2023 Lab Drop off Love Palmer [facility] Start: 07-07-2022 End: 07-07-2022 Patient encounter procedure Chris Banegas [facility] Start: 07-30-2021 End: 07-31-[address] BAKARI PROCTOR Facility: Start: 07-15-2021 End: 07-15-2021 Lab Drop off Love Palmer [facility] Procedures Date Procedure Procedure Detail Performing Clinician Start: 11-15-2024 Urine test visual color cmprsn meths Bakari Hitesh DO Work Phone: Start: 04-24-2024 ALL CBC WITH AUTO DIFF Bakari Hitesh DO Work Phone: Start: 04-23-2024 [facility] CBC WITH PLATEL ET NO DIFFERENTIAL Bakari Hitesh DO Work Phone: Start: 04-23-2024 [facility] DRUG SCREEN RAPI D (URINE) Bakari Hitesh DO Work Phone: Start: 04-11-2024 Urnls dip stick/tabl et rgnt non-auto w/o micrscp Valentina VARGAS Work Phone: Start: 04-03-2024 Urnls dip stick/tabl et rgnt non-auto w/o micrscp Bakari Hitesh DO Work Phone: Start: 04-03-2024 ALL MISCELLANEOUS TEST Bakari Hitesh DO Work Phone: Start: 03-27-2024 Urnls dip stick/tabl et rgnt non-auto w/o micrscp Bakari Hitesh DO Work Phone: Start: 03-23-2024 [facility] UA (CLEAN/CATCH) KNOTTER HAND/MICRO IF IND. Bakari Hitesh DO Work Phone: Start: 03-12-2024 Urnls dip [...] micrscp Bakari Hitesh DO Work Phone: Start: 11-16-2023 IGP,APTIMA HPV,AGE GDLN Bakari Hitesh DO Work Phone: Start: 11-16-2023 Microscopic observat ion [Identifier] in Cervix by Cyto stain Steffanie York MD Work Phone: Start: 11-16-2023 URETHRITIS/DISCHARGE PLUS VAGINITIS (HTRX) Bakari Hitesh DO Work Phone: Plan of Treatment Date Care Activity Detail Author Start: 11-15-2026 Screening for malign ant neoplasm of cervix Pap Smear [facility] Start: 01-01-2025 End: 01-01-2025 US MFM with or without consult US MFM with or without consult Imaging Routine Low-lying placenta Personal history of cardiac murmur Expected: 01/01/2025 (Approximate), Expires: [facility]01[facility] Work Phone: Comment on above: Expected: 01/01/2025 (Approximate), Expires: 01/01/2025 Start: 12-11-2024 End: 12-11-2024 Patient encounter procedure 12/11/2024 2:00 PM EDT Routine [facility] [address] [place] [phone] Marsha Rao, COUPON MANIFEST CLERK [address] [place] [phone] [facility] Start: 11-21-2024 End: 11-21-2024 Patient encounter procedure 11/21/2024 3:00 PM EDT Office Visit [facility] [address] [place] [phone] Bakari Proctor DO [address] [place] [address] [facility] Start: 11-15-2024 End: 11-15-2025 ABO/Rh ABO/Rh Lab Routine Missed menses , unspecified gestational age ([facility]) Expected: 11/15/2024 (Approximate), Expires: 11/15/2025 [facility] Comment on above: Expected: 11/15/2024 (Approximate), Expires: 11/15/2025 Start: 11-15-2024 End: 11-15-2025 Blood type and Indirect antibody screen panel - Blood Type and screen Lab Routine Missed menses , unspecified gestational age ([facility]) Expected: 11/15/2024 (Approximate), Expires: 11/15/2025 [facility] Work Phone: Comment on above: Expected: 11/15/2024 (Approximate), Expires: 11/15/2025 Start: 11-15-2024 End: 11-15-2025 Drugs of abuse panel - Urine by Screen method Rapid drug screen, urine Lab Routine , unspecified gestational age ([facility]) Encounter for supervision of normal first in first trimester ([facility]) Expected: 11/15/2024 (Approximate), Expires: 11/15/2025 [facility] Comment on above: Expected: 11/15/2024 (Approximate), Expires: 11/15/2025 Start: 11-12-2024 Influenza vaccination Influenza Vacc ine (#1) [facility] Start: 04-19-2024 End: 04-19-2024 Patient encounter procedure [facility] Comment on above: Arrived Start: 04-16-2024 End: 04-16-2024 Professional / ancillary services management 04/16/2024 3:00 PM EST Ancillary Procedure [facility] [address] [place] [address] [place] [phone] [facility] Start: 04-11-2024 End: 04-11-2024 Patient encounter procedure [facility] Comment on above: Arrived Start: 04-11-2024 End: 04-11-2025 US for US OB follow up transabdominal approach Imaging Routine Excessive growth affecting management of in third trimester, single or unspecified fetus Expected: 04/11/2024, Expires: 04/11/2025 [facility] Work Phone: Comment on above: Expected: 04/11/2024 , Expires: 04/11/2025 Start: 04-03-2024 End: 04-03-2025 CULTURE, GROUP B STREP WITH SUSCEPTIBLITY CULTURE, GROUP B STREP WITH SUSCEPTIBLITY Lab Routine Third trimester Expected: 04/03/2024, Expires: 04/03/2025 [facility] Work Phone: Comment on above: Expected: 04/03/2024 , Expires: 04/03/2025 Start: 04-03-2024 End: 04-03-2024 Patient encounter procedure 04/03/2024 1:30 PM EST Routine [facility] [address] [place] [phone] Bakari Proctor, DO [address] [place] [address] [facility] Start: 03-27-2024 End: 03-27-2024 Patient encounter procedure 03/27/2024 2:30 PM EST Routine [facility] [address] [facility] [facility] [place] [phone] Bakari Proctor, DO [address] [place] [address] [facility] Start: 03-12-2024 End: 03-12-2024 Patient encounter procedure 03/12/2024 2:40 PM EST Routine [facility] [address] [place] [phone] Valentina Cordova PA [address] [place] [address] Arrived [facility] Comment on above: Arrived Start: 03-12-2024 End: 03-12-2024 Professional / ancillary services management 03/12/2024 1:00 PM EST Ancillary Procedure [facility] [address] [facility] [facility] [place] [phone] [facility] Start: 02-23-2024 End: 02-23-2024 [...] PM EST Routine [facility] [address] [facility] [place] [phone] Bakari Proctor DO [address] [place] [address] [facility] Start: 02-02-2024 End: 02-02-2024 Patient encounter procedure 02/02/2024 1:00 PM EST Appointment [facility] [place] [address] [place] [address] [facility] [place] Start: 01-11-2024 End: 01-11-2024 Patient encounter procedure 01/11/2024 2:30 PM EDT Routine [facility] [address] [facility] [place] [phone] Valentina Cordova PA [address] [place] [address] [facility] Start: 01-11-2024 End: 01-10-2025 CBC panel - Blood by Automated count CBC Lab Routine Diabetes mellitus screening Expected: 01/11/2024 (Approximate), Expires: 01/10/2025 [facility] Work Phone: Comment on above: Expected: 01/11/2024 (Approximate), Expires: 01/10/2025 Start: 01-11-2024 End: 01-10-2025 Measurement of glucose 1 hour after glucose challenge for glucose tolerance test Glucose tolerance, 1 hour Lab Routine Diabetes mellitus screening Expected: 01/11/2024 (Approximate), Expires: 01/10/2025 [facility] Comment on above: Expected: 01/11/2024 (Approximate), Expires: 01/10/2025 Start: 01-02-2024 End: 01-02-2024 Patient encounter procedure [facility] [place] [facility] Start: 12-14-2023 End: 12-14-2023 Patient encounter procedure 12/14/2023 2:10 PM EDT Routine [facility] [address] [place] [address] Bakari Proctor, DO [address] [place] [address] [facility] Start: 12-14-2023 End: 12-14-2023 Professional / ancillary services management 12/14/2023 1:00 PM EDT Ancillary Procedure [facility] [address] [place] [address] [facility] Start: 11-16-2023 End: 11-16-2023 Patient encounter procedure 11/16/2023 3:30 PM EDT Routine [facility] [address] [place] [phone] Bakari Proctor, DO [address] [place] [address] Arrived [facility] Comment on above: Arrived Start: 11-16-2023 End: 12-16-2023 Alpha fetoprotein, maternal Alpha fetoprotein, maternal Lab Routine Need for maternal serum alpha-protein (MSAFP) screening Expected: 11/16/2023 (Approximate), Expires: 12/16/2023 [facility] Comment on above: Expected: 11/16/2023 (Approximate), Expires: 12/16/2023 Start: 11-16-2023 End: 11-15-2024 US for US OB ANATOMY SINGLE W US OB CERVICAL LENGTH Imaging Routine Screening, , for anatomic survey Expected: 11/16/2023 (Approximate), Expires: 11/15/2024 [facility] Comment on above: Expected: 11/16/2023 (Approximate), Expires: 11/15/2024 Start: 11-13-2023 Influenza vaccination N [facility] Start: 10-13-2023 Influenza vaccination Flu vacc ine (Season Ended) [facility] Start: 11-02-2021 DTaP,Tdap and Td Vaccines (7 - Td or Tdap) DTaP,Tdap and Td Vaccines (7 - Td or Tdap) [facility] Start: 12-11-2019 Screening for malign ant neoplasm of cervix Pap Smear [facility] Start: 2017 DTaP,Tdap and Td Vaccines (1 - Tdap) DTaP,Tdap and Td Vaccines (1 - Tdap) [facility] Start: 2017 DTaP/Tdap/Td vaccine (1 - Tdap) DTaP/Tdap/Td vaccine (1 - Tdap) [facility] Start: 2016 Adult BMI Follow Up Plan Adult BMI Follow Up Plan [facility] Start: 2016 Adult BMI Screening Adult BMI Screen ing [facility] Start: 2010 Depression Screening Depression Scre ening [facility] Start: 2010 Tobacco Screening Tobacco Screening [facility] Start: 06-10-1999 COVID-19 Vaccine (#1) COVID-19 Vacci ne (#1) [facility] Bacteria identified in Urine by Culture Urine culture Microbiology Routine Missed menses Ordered: 11/15/2024 [facility] Comment on above: Ordered: 11/15/2024 CBC W Auto Different ial panel - Blood CBC and differential Lab Routine Missed menses , unspecified gestational age [facility] Ordered: 11/15/2024 [facility] Comment on above: Ordered: 11/15/2024 CHLAMYDIA TRACHOMATI S (GENITO/STI) CHLAMYDIA TRACHOMATIS (GENITO/STI) Lab Routine Exposure to STD Ordered: 11/16/2023 [facility] Comment on above: Ordered: 11/16/2023 Cytology Cervical or vaginal smear or scraping study Pap Smear Pathology and Cytology Routine Well woman exam with routine gynecological exam Ordered: 11/16/2023 [facility] Work Phone: Comment on above: Ordered: 11/16/2023 Hemoglobin A1c/Hemoglobin.total in Blood Hemoglobin A1c Lab Routine Missed menses , unspecified gestational age ([facility]) Ordered: 11/15/2024 [facility] Comment on above: Ordered: 11/15/2024 Hepatitis B virus surface Ag [Presence] in Serum or Plasma by Immunoassay Hepatitis B surface antigen Lab Routine Missed menses , unspecified gestational age ([facility]) Ordered: 11/15/2024 [facility] Comment on above: Ordered: 11/15/2024 Hepatitis C virus Ab [Presence] in Serum or Plasma by Immunoassay Hepatitis C antibody Lab Routine Missed menses , unspecified gestational age ([facility]) Ordered: 11/15/2024 [facility] Comment on above: Ordered: 11/15/2024 HIV-1/HIV-2 antigen/antibody combination immunoassay HIV-1 and HIV-2 antibodies Lab Routine Missed menses , unspecified gestational age ([facility]) Ordered: 11/15/2024 [facility] Comment on above: Ordered: 11/15/2024 Neisseria gonorrhoea e DNA [Presence] in Unspecified specimen by KESHIA with probe detection Neisseria gonorrhea DNA probe, direct Lab Routine Exposure to STD Ordered: 11/16/2023 [facility] Comment on above: Ordered: 11/16/2023 Reagin Ab [Presence] in Serum by RPR RPR Lab Routine Missed menses , unspecified gestational age ([facility]) Ordered: 11/15/2024 [facility] Comment on above: Ordered: 11/15/2024 Rubella antibody, IgG Rubella an tibody, IgG Lab Routine Missed menses , unspecified gestational age ([facility]) Ordered: 11/15/2024 [facility] Comment on above: Ordered: 11/15/2024 SURESWAB(R) ADVANCED VAGINITIS PLUS, TMA SURESWAB(R) ADVANCED VAGINITIS PLUS, TMA Pathology and Cytology Routine Exposure to STD Ordered: 11/16/2023 [facility] Comment on above: Ordered: 11/16/2023 Immunizations Immunization Date Immunization Notes Care Provider Carlota melchor 12-28-2018 influenza virus vacc ine, unspecified formulation Bakari Proctor DO Work Phone: [facility] Payers Date Payer Category Payer [employer] [id number] [id number] 2023 Mahad hernandez [employer] - Other ANTHEM [id number] 2023 Unknown 2023 Unknown [id number] .[id number] 1998 Unknown [id number] 2.16.840.1.504398.3.579 .2.593 1998 Unknown [id number] 2.16.840.1.247546.3.579 .2.173 1998 Unknown [id number] 2.16.840.1.945898.3.579 .2.727 1998 Unknown [id number] 2.16.840.1.155448.3.579 .2.727 1998 Unknown [id number] 2.16.840.1.497159.3.579 .2.727 1998 Unknown [id number] 2.16.840.1.672347.3.579 .2.1286 1998 Unknown [id number] 2.16.840.1.952410.3.579 .2.1286 1998 Unknown [id number] 2.16.840.1.266955.3.579 .2.1286 1998 Unknown [id number] 2.16.840.1.765108.3.579 .2.727 1998 Unknown [id number] 2.16.840.1.911543.3.579 .2.1259 1998 Unknown [id number] 2.16.840.1.963199.3.579 .2.1259 1998 Unknown [id number] 2.16.840.1.359740.3.579 .2.1258 1998 Unknown [id number] 2.16.840.1.397781.3.579 .2.1258 1998 Unknown [id number] 2.16.840.1.975579.3.579 .2.1258 1998 Unknown [id number] 2.16.840.1.288203.3.579 .2.1258 1998 Unknown [id number] 2.16.840.1.528276.3.579 .2.1258 1998 Unknown [id number] 2.16.840.1.589233.3.579 .2.1258 1998 Unknown [id number] 2.16.840.1.834412.3.579 .2.1258 1998 Unknown [id number] 2.16.840.1.986297.3.579 .2.1258 1998 Unknown [id number] 2.16.840.1.979539.3.579 .2.1258 1998 Unknown [id number] 2.16.840.1.010376.3.579 .2.1258 1998 Unknown [id number] 2.16.840.1.785521.3.579 .2.1259 1959 Unknown [id number] Social History Date Type Detail Facility Start: 10-24-2020 End: 01-02-2024 Tobacco smoking status Never smoked tobacco (finding) [facility] Tobacco smoking status Never [facility] Start: 07-01-2012 End: 01-02-2024 Sex Assigned At Female [facility] Start: 07-18-2023 End: 01-02-2024 Tobacco use and exposure [facility]ok[facility] Start: 07-18-2023 End: 01-02-2024 Alcohol intake [facility]-drinker (finding) [facility] Start: 07-01-2012 End: 01-02-2024 History of Social function [facility] [employer] [facility] Start: 1998 Sex Assigned At Not on file [facility] Start: 1998 Sex Assigned At Female [facility] Tobacco smoking status NHIS Tobacco smoking consumption unknown [facility] Start: 08-06-2023 [facility] Start: 05-26-2022 Gender identity Identifies as female gender (finding) [facility] Start: 12-16-2023 Sex Female (finding[facility] NEGATED: Highlighted rowStart: NINF History of tobacco use Passive smoker [facility] Goals Date Patient Goal Desired Activity /State Personal health goal Functional Status Date Assessment Result Facility 09-22-2023 Functional Status N/A [facility] 07-07-2022 Functional Status N/A [facility] Clinical Notes 07-15-2021 to 11-15-2024 Skylar Gonzáles FILTER PRESS PUMPER - 11/15/2024 1:00 PM ALICIA Herron - 06/04/2024 11:30 AM Marilee Koch LPN - 04/19/2024 10:00 AM ALICIA Aparicio - 04/11/2024 2:30 PM ALICIA Aparicio - 02/23/2024 3:20 PM EST Note Date & Type Note Facility 11-15-2024 History of Present illness Narrative Reason for Appointment: Patient ID: Sebastian Sanchez is a 23 y.o. female who presents for Amenorrhea Patient presents today for a Nurse OB Intake appointment. Patient is 6w3d with a Estimated Date of Delivery: 07/08/25 OB History Para Term AB Living 4 1 1 2 1 SAB IAB Ectopic Multiple Live Births 2 1 # Outcome Date GA Lbr Carlito/2nd Weight Sex Type Anes PTL Lv 4 Current 3 Term 04/23/24 39w2d F Vag-Spont RIRI 2 SAB 06/2023 1 SAB Current Medications: has a current medication list which includes the following prescription(s): ondansetron odt and azithromycin. Medical History: Active Ambulatory Problems Diagnosis Date Noted No Active Ambulatory Problems Resolved Ambulatory Problems Diagnosis Date Noted No Resolved Ambulatory Problems Past Medical History: Diagnosis Date HSV-1 (herpes simplex virus 1) infection No family history on file. Social History Tobacco Use Smoking status: Not on file Smokeless tobacco: Not on file Substance Use Topics Alcohol use: Not on file Drug use: Not on file History reviewed. No pertinent surgical history. No Known Allergies Vitals: Estimated body mass index is 31.18 kg/m as calculated from the following: Height as of 07/05/22: 5' 3 . Weight as of this encounter: 176 lb. BP: 120/70 Patient's last menstrual period was 10/01/2024. Assessment/Plan Diagnoses and all orders for this visit: Missed menses - US OB transvaginal; Future - Type and screen; Future - ABO/Rh; Future - CBC and differential - Hemoglobin A1c - RPR - Rubella antibody, IgG - Hepatitis B surface antigen - Hepatitis C antibody - HIV-1 and HIV-2 antibodies - Urine culture - POCT , urine manually resulted - POCT urinalysis dipstick manually resulted Positive urine test ([facility]) - US OB transvaginal; Future , unspecified gestational age ([facility]) - Type and screen; Future - ABO/Rh; Future - CBC and differential - Hemoglobin A1c - RPR - Rubella antibody, IgG - Hepatitis B surface antigen - Hepatitis C antibody - HIV-1 and HIV-2 antibodies - Rapid drug screen, urine; Future Encounter for supervision of normal first in first trimester ([facility]) - Rapid drug screen, urine; Future Nausea - ondansetron ODT (Zofran-ODT) 4 MG disintegrating tablet; Take 1 tablet (4 mg) by mouth every 6 (six) hours if needed for nausea or vomiting Sinus congestion - azithromycin (Zithromax Z-Jensen) 250 MG tablet; As directed Nurse Note: OB Intake: Patient presents today for first OB visit. Patients history has been reviewed in great detail including any potential risks. Patient signed consent forms and patient desires testing in both trimesters. Patient currently has no complaints and has been advised to drink 6-8 glasses of water a day, eat no raw or undercooked meat, and stay away from [facility]. Patient has also been advised to not change litter boxes and eat 6 small meals a day. Patient has been consulted regarding the do's and don'ts of . Patient was given labs and all questions and concerns were answered. Patient was given [place] to have completed at 9 weeks with initial labs. Patient was sent in Zofran and Z-pack today. Follow Up: Patient is to return in 4 weeks for routine OB appointment. Follow Up: Patient is to have labs drawn at directed and return to office for initial OB appointment with provider. Patient may call office as needed with any concerns or questions. Nurse Visit Completed by: Skylar Gonzáles LPN documented in this encounter [facility] 06-04-2024 History of Present illness Narrative Reason for Appointment: Patient ID: Sebastian Aleman is a 23 y.o. female who presents for Care (Pt present today for a 6 week post visit. Pt delivered on 04/23/2024 vaginal delivery.) Patient presents today for Post Follow Up appointment. MEDICATIONS Current Outpatient Medications Medication Instructions valACYclovir (VALTREX) 500 mg, Oral, Daily venlafaxine [...] reviewed. Vitals: Estimated body mass index is 29.23 kg/m as calculated from the following: Height as of 07/05/22: 5' 3 . Weight as of this encounter: 165 lb. BP: 120/70 Patient's last menstrual period was 07/30/2023. ASSESSMENT & PLAN ICD-10-CM 1. 6 weeks follow-up Z39.2 2. Spontaneous vaginal delivery O80 Post Follow Up: Patient is doing well has no complaints at today's visit. Patient presents today for 6 week visit. Patient is s/p Vaginal delivery. Patient states depression but denies suicidal and homicidal ideations. All options were discussed with the patient regarding control and patient desires oral contraception . Follow Up: Patient is to return for annual unless needed otherwise. Documented by Racquel Tinsley MA on behalf of: ALICIA Knutson documented in this encounter [facility] 04-19-2024 History of Present illness Narrative Reason [...] nursing note reviewed. Exam conducted with a cone operator present. Vitals: Estimated body mass index is [...] Bakari Proctor DO documented in this encounter [facility] 04-11-2024 History of Present illness Narrative Reason [...] of: ALICIA Knutson documented in this encounter [facility] 04-03-2024 History of Present illness Narrative Reason [...] nursing note reviewed. Exam conducted with a cone operator present. Vitals: Estimated body mass index is [...] Bakari Proctor DO documented in this encounter [facility] 03-27-2024 History of Present illness Narrative Reason [...] nursing note reviewed. Exam conducted with a cone operator present. Vitals: Estimated body mass index is [...] Bakari Proctor DO documented in this encounter [facility] 02-23-2024 History of Present illness Narrative Reason [...] of: ALICIA Knutson documented in this encounter [facility] 02-08-2024 History of Present illness Narrative Reason [...] nursing note reviewed. Exam conducted with a cone operator present. Vitals: Estimated body mass index is [...] Bakari Proctor DO documented in this encounter [facility] 01-11-2024 History of Present illness Narrative Reason [...] of: ALICIA Knutson documented in this encounter [facility] 01-02-2024 History of Present illness Narrative REASON [...] and the other consultants, we search on [employer] and all the available care everywhere epic I did review all the imaging studies of the patient available on EMR, ordered by the primary care physician and the other sales and service consultant HABITS: Patient activity no restrictions, diet [...] 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 Patient does have ultrasound scheduled with us. [...] neg Have you been seen here at [facility] in a previous ? No Recent ER visits or hospitalizations? No Bring blood sugar log or meter with you today? (Please bring them with you for every visit at [facility]) N/A Flu vaccine (Jan-May)? N/A Any concerns that you would like me to mention to the provider today? No documented in this encounter [facility] 12-14-2023 History of Present illness Narrative Reason [...] nursing note reviewed. Exam conducted with a cone operator present. Vitals: Estimated body mass index is [...] partially covers os. Pt being referred to [facility] for evaluation of placenta previa. Pt to be on pelvic rest until further notice. Pt to return in 4 weeks. Documented by Kami Moss LPN on behalf of: Bakari Proctor DO documented in this encounter [facility] 11-16-2023 History of Present illness Narrative Reason [...] nursing note reviewed. Exam conducted with a cone operator present. Vitals: Estimated body mass index is [...] Valentina Cordova PA-C documented in this encounter [facility] 09-22-2023 Evaluation + Plan note Extrac arvin from: Title:ED Note Author:Rodrigo Berg DO Date :09/22/23 Asymptomatic bacteriuria dur ing (O99.891: Other specified diseases and conditions complicating ) Bacteriuria (R82.71: Bacteriuria) Nausea and vomiting during (O21.9: Vomiting of , unspecified) Orders: cephalexin, 500 mg = 1 cap(s), Oral, q12hr, X 5 day(s), # 10 cap(s), Refills(s) 0, [id number], 160, cm, 09/22/23 5:34:00 EDT, Height/Length Dosing, 72.4, kg, 09/22/23 5:34:00 EDT, Weight Dosing Lactated Ringers Injection, 1,000 mL, Soln-IV, IV, Once, Stop date 09/22/23 5:38:00 EDT, STAT, Start date 09/22/23 5:38:00 EDT, mL/hr, Infuse over 61, minute(s) promethazine, 12.5 mg = 1 tab(s), Oral, q8hr, PRN as needed for nausea/vomiting, # 12 tab(s), Refills(s) 0, [id number], 160, cm, 09/22/23 5:34:00 [...] Diagnostic Tests Pending * Urine Culture 09/22/23 [facility]07-11-2024 Hospital Discharge instructions Patient Education 09/22/2023 [...] Follow these instructions at home: Medicines Take jdag-txz-wrhtlui and prescription medicines only as told by your health care provider. Do not use any prescription, zbul-njq-bfsqpvp, or herbal medicines for morning sickness without [...] provider. Document Revised: 10/13/2020 Document Reviewed: 09/22/2020 [employer] Patient Education 2022 X[employer]Me. 09/22/2023 07:17:19 Asymptomatic Bacteriuria Asymptomatic Bacteriuria Asymptomatic [...] Follow these instructions at home: Medicines Take lkmn-bgr-stxfubc and prescription medicines only as told by [...] provider. Document Revised: 10/10/2020 Document Reviewed: 10/10/2020 [employer] Patient Education 2022 XbyMe. Follow Up Care 09/22/2023 05:26:40 With:Bakari PROCTOR Address: [address] [place] [address]- Business (1) When:09/25/2023 06:28:14 [facility]07-11-2024 NoteED Patient Education Note Obstetrics and [...] these instructions at home: Medicines ? Take khud-wks-dfufzys and prescription medicines only as told by your health care provider. Do not use any prescription, ouce-jal-nxuijkd, or herbal medicines for morning sickness without [...] Reviewed: 09/22/2020 Elsevier Patient Education ? 2022 XbyMe. Urology Asymptomatic Bacteriuria Asymptomatic bacteriuria is the [...] You are an o (more content not included)...[facility] 07-18-2023 Hospital Discharge instructions* Discharge Instructions* [...] sent through Care Everywhere. * Tenosynovitis: Wrist ([place]) [facility] Discharge instructions Patient Education 07/07/2022 [...] numbers. This can be done either in [place] ([place] or metric measurements. Note that charts and online BMI calculators are available to help you find your BMI quickly and easily without having to do these calculations yourself. To calculate your BMI in [place] ([place] measurements: 1.Measure your weight in pounds [...] Centers for Disease Control and Prevention: www.cdc.gov [place] [employer]: www.heart.org National Heart, Lung, and Blood [place]: www.nhlbi.nih.gov Summary Body mass index (BMI) is a number that is calculated from a person's weight and height. BMI may help estimate how much of a person's weight is composed of fat. BMI can help identify thosewho may be at higher risk for certain medical problems. BMI can be measured using Nigerien measurements or metric measurements. BMI charts are used to identify whether you are underweight, normal weight, overweight, or obese. This information is not intended to replace advice given to you by your health care provider. Make sure you discuss any questions you have with your health care provider. Document Revised: 11/21/2019 Document Reviewed: 09/28/2019 [employer] Patient Education 2022 [employer] 07/07/2022 10:02:02 Tendinitis, Sgox-vm-Drvi Tendinitis Tendinitis is irritation and swelling (inflammation) [...] only as told by your doctor. Take hpoi-kng-jolckfr and prescription medicines only as told by [...] provider. Document Revised: 11/05/2021 Document Reviewed: 11/05/2021 [employer] Patient Education 2022 XbyMe. Follow Up Care 07/07/2022 09:19:19 With:NONE, XXXX Address: [phone] When: Unknown [facility] 05-04-2022 Evaluation + Plan note Diagnostic Tests Pending * Chlamydia/Gonococcus, KESHIA [facility]* Diagnosis De Quervain's tenosynovitis, left- Primary Radial styloid tenosynovitis documented [facility] this encounter [facility]No assessment information available [facility] Work Phone: Evaluation note* Diagnosis Second trimester state, incidental 20 weeks gestation of Partial placenta previa Placenta previa without hemorrhage, unspecified as to episode of care [facility] Diagnosis Second trimester state, incidental 24 [...] in this [facility]* Diagnosis Low-lying placenta- Primary Hemorrhage from placenta previa, unspecified as to episode of care Personal history of cardiac murmur Personal history of other diseases of circulatory system [facility] Diagnosis Partial placenta previa- Primary Placenta previa without hemorrhage, unspecified as to episode of care [facility] Diagnosis 6 weeks follow-up Spontaneous vaginal delivery Normal delivery Herpes simplex Herpes simplex without mention of complication [facility]* Diagnosis Missed menses Positive urine test ([facility]) Missed menses Positive urine test ([facility]) , unspecified gestational age ([facility]) Encounter for supervision of normal first in first trimester ([facility]) Nausea Nausea alone Sinus congestion Other diseases of nasal cavity and sinuses documented in this encounter [facility] [...] behalf of: ALICIA Knutson [facility] Narrative No data available for this section [facility] No data available for this section [facility]ructionsNot on filedocumented in this encounter [facility] SystemInstructionsNot on filedocumented in this encounter [facility] SystemInstructionsNot on filedocumented in this encounter [facility] No data available for this section [facility] Reason for referral (narrative) Referred by: Chris Banegas PA-C [facility] Summary Purpose Family History No [...] DATE CREATED AUTHOR AUTHOR'S ORGANIZ ATION 09/28/2023 Dixmont Macho [facility] DATE CREATED AUTHOR AUTHOR'S ORGANIZ ATION 02/05/2024 [facility] DATE CREATED AUTHOR AUTHOR'S ORGANIZ ATION 10/28/2024 August Macho [facility] DATE CREATED AUTHOR AUTHOR'S ORGANIZ ATION 11/03/2024 Dixmont Faulk [facility] DATE CREATED AUTHOR AUTHOR'S ORGANIZ ATION 11/17/2024 [facility] Reason for Visit (unrecogniz ed section and content) Reason Comments Wrist Injury Patient arrived to E with complaints of left wrist injury. 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 had issues with her left wrist prior to incident. Reason Comments Routine Visit Reason Comments partial placenta previa HSV survey Reason Comments Care Pt present today for a 6 week post visit. Pt delivered on 04/23/2024 vaginal delivery. Reason Comments Amenorrhea Ordered Prescriptions (unrec ognized section and content) [...] Care Teams (unrecognized sec tion and content) Historic Interpreter Relationship Specialty Start Date End Date Unallocated, Noms Provider, [address] [place] [address] PCP - General Family Medicine 09/26/23 Team [...] BE BASED ON THE PRIMARY CLINICAL RECORDS. [facility]. provides no warranty or guarantee of the accuracy or completeness of information in this document.
[2024-12-03 09:43] LABS: Hematocrit 36.9 % (36.0-48.0); Hemoglobin 13.0 g/dL (12.0-16.0); Immature Granulocytes Abs Auto 0.05 10^3/uL (0.00-0.03); Immature Granulocytes Pct Auto 0.5 % (0.0-0.5); Lymphocytes Absolute Auto 2.2 10^3/uL (1.2-3.8); Mean Corpuscular HGB Conc 35.2 g/dL (29.9-35.2); Mean Corpuscular Hemoglobin 30.7 pg (26.7-34.0); Mean Corpuscular Volume 87.2 fL (81.0-99.0); Platelet Count 374 10^3/uL (150-450); Red Blood Count 4.23 10^6/uL (4.20-5.40); White Blood Count 10.7 10^3/uL (4.0-11.0)
[2024-12-03 10:44] LABS: Cannabinoid Screen Urine NEGATIVE (NEGATIVE); Methamphetamines Screen Urine NEGATIVE (NEGATIVE); Tricyclic Antidepressant Urine NEGATIVE (NEGATIVE)
[2024-12-04 07:07] LABS: Rubella Antibodies, IgG 8.90 index (Immune >0.99)
[2024-12-04 13:09] LABS: Rapid Plasma Reagin, Quant Non Reactive titer (NonRea<1:1)
== END 2024-12-03 08:42 | disposition home or self-care (01) ==
LOC: LAB 08:44
PROVIDERS: Visit Provider Obstetrics & Gynecology
DX: Z34.01 Encounter for supervision of normal first pregnancy, first trimester (principal); N92.6 Irregular menstruation, unspecified
CPT/HCPCS: 36415; 80307; 83036; 85025; 86592; 86762; 86803; 86850; 86900; 86901; 87086; 87340; 87389

== ENCOUNTER 2025-01-08 19:19 | Outpatient (REF) | payer BC, SELFPAY ==
--- OUTSIDE RECORDS SUMMARY | 2025-01-08 14:30 | XMS_ITS | Encounter Summary ---
Author Organization [facility] Address [address] [place] [address] Care Team Providers Care Beauty Sales Consultant Name Role Phone Unallocated, Noms Provider Primary Care Provi que Reason for Visit * ReasonCommentsRoutine Visit Encounter Details DateTypeDepartmentCare Team (Latest Contact Info)Pobbhbjycmw69/28/2025 2:30 PM EDTRoutine [facility] [address] [place] [id number] Valentina Archer PA [address] [place], [facility] Second trimester ([facility]); 14 weeks gestation of ([facility]) Social History Tobacco UseTypesPacks/DayYears UsedDateSmoking Tobacco: Never Assessed Estimated Date of NefkyswlNsyucdzgZcl98/27/2026Based on last menstrual period of 10/01/2024Sex and Gender InformationValueDate RecordedSex Assigned at BirthFemale 06/15/2023 12:49 PM EDTLegal RfyArlybh90/15/2023 7:27 PM EDTGender Identity Rnljbz5405/26/2022 7:27 PM EDTSexual OrientationNot on filedocumented as of this encounter Last Filed Vital Signs Vital SignReadingTime TakenCommentsBlood Bcsnbzbs076/6801/08/2025 2:47 PM EDT Pulse--Temperature--Respiratory Rate--Oxygen Saturation--Inhaled Oxygen Concentration--Ycdeum65.9 kg (171 lb 12.8 oz)01/08/2025 2:47 PM EDTHeight--Body Mass Index30.43007/05/2022 12:00 PM EDTdocumented in this encounter Progress Notes * ALICIA Knutson - 01/08/2025 2:30 PM EDT Reason for Appointment: Patient ID: Ericka Sanchez is a 24 y.o. female who presents for Routine Visit Patient presents today for Return OB appointment. MEDICATIONS Current Outpatient Medications Medication Instructions promethazine (PHENERGAN) 12.5 mg, Oral, Every 6 hours PRN, Take 1 tablet by mouth every 6 hours as needed for nausea. pyridoxine (VITAMIN B-6) 25 mg, Oral, Every 8 hours ALLERGIES No Known Allergies PROBLEMS Active Ambulatory [...] Alcohol use: Not on file Drug use: Yes Types: Marijuana FAMILY HISTORY No family history on file. [...] Appearance: Normal appearance. She is normal weight. Genitourinary: Right Adnexa: not tender and no mass present. Left Adnexa: not tender and no mass present. No cervical discharge. Breasts: Breasts are soft. Right: Normal. Left: Normal. HENT: Head: Normocephalic. Nose: Nose normal. Mouth/Throat: Mouth: Mucous membranes are moist. Cardiovascular: Rate and Rhythm: Normal rate. Pulses: Normal pulses. Pulmonary: Effort: Pulmonary effort is normal. Breath sounds: Normal breath sounds. Abdominal: General: Bowel sounds are normal. Palpations: Abdomen is soft. Musculoskeletal: General: Normal range of motion. Cervical back: Normal range of motion. Neurological: General: No focal deficit present. Mental Status: She is alert and oriented to person, place, and time. Skin: General: Skin is warm and dry. Psychiatric: Mood and Affect: Mood normal. Behavior: Behavior normal. Thought Content: Thought content normal. Judgment: Judgment normal. Vitals and nursing note reviewed. Exam conducted with a applications processor present. Vitals: Estimated body mass index is 30.43 kg/m?? as calculated from the following: Height as of 07/05/22: 5' 3 . Weight as of this encounter: 171 lb 12.8 oz. BP: 102/68 Patient's last menstrual period was 10/01/2024. Assessment/Plan ICD-10-CM 1. Second trimester ([facility]) Z34.92 SURESWAB(R) ADVANCED VAGINITIS PLUS, TMA CHLAMYDIA TRACHOMATIS (GENITO/STI) Neisseria gonorrhea DNA probe, direct Pap Smear 2. 14 weeks gestation of ([facility]) Z3A.14 POCT urinalysis dipstick manually resulted Return OB/Annual Exam: Patient presents today for a annual exam/routine obstetrics appointment. Patient is currently 70w1cmyjozgpo. Patient states she is doing well but has complaints of nausea in the morning. Pap and cultures was obtained without difficulty and patient was given orders for anatomy scan and msAFP to be obtained. Orders Placed This Encounter Procedures CHLAMYDIA TRACHOMATIS (GENITO/STI) Neisseria gonorrhea DNA probe, direct POCT urinalysis dipstick manually resulted Follow Up: Patient is to schedule annual exam for next year and return to office in 4 weeks for OB appointment. Documented by ALICIA Knutson on behalf of: ALICIA Knutson documented in this encounter Plan of Treatment DateTypeDepartmentCare Team (Latest Contact Info)Nhvxprlpvbw25/26/2025 1:40 PM ESTRoutine [facility] [address] [place] [address] Bakari Proctor, [address] [place], [place] [id number] NameTypePriorityAssociated DiagnosesOrder ScheduleSURESWAB(R) ADVANCED VAGINITIS PLUS, TMAPathology and CytologyRoutine Second trimester ([facility]) Ordered: 01/08/2025HLAMYDIA TRACHOMATIS (GENITO/STI)LabRoutine Second trimester ([facility]) Ordered: 01/08/2025Neisseria gonorrhea DNA probe, directLabRoutine Second trimester ([facility]) Ordered: 01/08/2025Pap SmearPathology and CytologyRoutine Second trimester ([facility]) Ordered: 01/08/2025documented as of this encounter Goals GoalPatient Goal TypeAssociated ProblemsRecent ProgressPatient-Stated?Author Reminders Care PlanOB RemindersNoOpen Scheduling, Backgrounddocumented as of this encounter Procedures Procedure NamePriorityDate/TimeAssociated DiagnosisCommentsPOCT URINALYSIS NVTMPXVWUejbqfm00/28/2025 2:51 PM EDT 14 weeks gestation of ([facility]) documented in this encounter Results * (ABNORMAL) POCT urinalysis dipstick manually resulted (01/08/2025 2:51 PM EDT) ComponentValueRef RangeTest MethodAnalysis TimePerformed AtPathologist SignatureColor, UAYellowClarity, UAClearGlucose, UANegativeNegative - 2000(110) ++++ mg/dLBilirubin, UANegativeNegative - 4(70) +++ mg/dLKetones, UA PositiveNegative - 160(16) ++++ mg/dLSpec Grav, UA1.0301 - 1.03Blood, UA NegativeNegative - 50 Raul/mcLpH, UA5.55 - 9Protein, UANegativeNegative - 2000(20) ++++ mg/dLUrobilinogen, UA0.20.2 - 12 mg/dLLeukocytes, UANegative Negative - 500+++ Anitra/mcLNitrite, UANegativeNegative - PositiveSpecimen (Source)Anatomical Location / LateralityCollection Method / VolumeCollection TimeReceived FbbcFulzk26/28/2025 2:51 PM EDT Narrative Authorizing ProviderResult TypeResult StatusValentina Archer PAPOINT OF CARE TEST ENTER/EDIT ORDERABLESFinal Result documented in this encounter Visit Diagnoses Diagnosis Second trimester ([facility]) state, incidental 14 weeks gestation of ([facility]) documented in this encounter Additional Health Concerns Active ProblemsNoted DateDiagnosed DateOB Gbhgqqshm24/18/2024 documented as of this encounter Care Teams Team MemberRelationshipSpecialtyStart DateEnd Date Unallocated, Noms Provider, [address] [place] [address] PCP - GeneralFamily Medicine09/26/23documented as of this encounter
--- OUTSIDE RECORDS SUMMARY | 2025-01-08 19:25 | XMS_ITS | Encounter Summary ---
Author Organization [facility] Address [address] [place] [address] Care Team Providers Care Supervisor Furnace Process Name Role Phone Unallocated, Noms Provider Primary Care Provi que Reason for Visit * ReasonCommentsMed Change Request Encounter Details DateTypeDepartmentCare Team (Latest Contact Info)Occyxakfvlp45/27/2025Refill STEPHANY SAPP [address] [place] [address] Marsha Rao, HYPERBARIC WELDER DIVER [address] [place] [address] Nausea Social History Tobacco UseTypesPacks/DayYears UsedDateSmoking Tobacco: Never Assessed Estimated Date of PmbgltacAcnscyurYot43/27/2026Based on last menstrual period of 10/01/2024Sex and Gender InformationValueDate RecordedSex Assigned at BirthFemale 06/15/2023 12:49 PM EDTLegal CgdUiwrzb21/15/2023 7:27 PM EDTGender Identity Vskccq0905/26/2022 7:27 PM EDTSexual OrientationNot on filedocumented as of this encounter Plan of Treatment DateTypeDepartmentCare Team (Latest Contact Info)Yxxtotoiowf52/26/2025 1:40 PM ESTRoutine [facility] [address] [place] [address] Bakari Proctor DO [address] [place] [address] documented as of this encounter Goals GoalPatient Goal TypeAssociated ProblemsRecent ProgressPatient-Stated?Author Reminders Care PlanOB RemindersNoOpen Scheduling, Backgrounddocumented as of this encounter Visit Diagnoses Diagnosis Nausea Nausea alone documented in this encounter Additional Health Concerns Active ProblemsNoted DateDiagnosed DateOB Vjzgkfokm25/18/2024 documented as of this encounter Care Teams Team MemberRelationshipSpecialtyStart DateEnd Date Unallocated, Noms Provider, [address] [place] [address] PCP - GeneralFamily Medicine09/26/23documented as of this encounter
--- OUTSIDE RECORDS SUMMARY | 2025-01-08 19:25 | XMS_ITS | Clinical Summary ---
Author Organization [facility] Healthcare Address [address] [place] [address] Care Team Providers Care Personal Property Assessor Name Role Phone Unallocated, Noms Provider MD Primary Care Provi que Allergies No known active allergies Medications MedicationSigDispense QuantityRefillsLast FilledStart DateEnd DateStatus promethazine (Phenergan) 12.5 MG tablet Indications:NauseaTake 1 tablet (12.5 mg) by mouth every 6 (six) hours if needed for nausea or vomiting for up to 30 doses Take 1 tablet by mouth every 6 hours as needed for nausea. 30 tablet tive pyridoxine (Vitamin B-6) 25 MG tablet Indications:NauseaTAKE 1 TABLET (25 MG) BY MOUTH EVERY 8 (EIGHT) HOURS 270 tablet /ctive ondansetron ODT (Zofran-ODT) 4 MG disintegrating tablet Indications:NauseaTake 1 tablet (4 mg) by mouth every 6 (six) hours if needed for nausea or vomiting 30 tablet Expired azithromycin (Zithromax Z-Jensen) 250 MG tablet Indications:Sinus congestionAs directed 6 tablet Discontinued pyridoxine (Vitamin B-6) 25 MG tablet Indications:NauseaTake 1 tablet (25 mg) by mouth every 8 (eight) hours 90 tablet Discontinued Encounters DateTypeDepartmentCare BeccPmjevbocfiw16/28/2025 2:30 PM EDTRoutine [facility] [address] [place] [address] Valentina Archer PA Second trimester ([facility]); 14 weeks gestation of ([facility])01/08/2025amboo flowsheet [facility] [address] [place] [address] Valentina Archer PA 01/07/2025Refill [facility] [address] [place] [address] Marsha Rao NP Gkrumj7801/03/20253179Trjdqe36/30/2025 2:00 PM EDTRoutine [facility] [address] [place] [address] Marsha Rao NP Nausea (Primary Dx); 10 weeks gestation of ([facility]); First trimester ([facility]); Herpes simplex; History of pbprmpzplyi41/30/2025amboo flowsheet [facility] [address] [place] [address] Marsha Rao NP 2024bstract [facility] [address] [place] [address] Juana Adams MA 12/04/20246128Ztpbob26/22/2025Telephone [facility] [address] [place] [address] Bakari Proctor DO 5Clinisync Result Encounter [facility] External Department Unsolicited Bakari Proctor DO 11/15/2024 1:00 PM EDTInitial [facility] [address] [place] [address] GA: 6w3d11/15/2024 12:30 PM EDTAncillary Procedure [facility] [address] [place] [address] Missed menses; Positive urine test ([facility])11/15/2024bstract [facility] [address] [place] [address] Bakari Proctor DO 11/14/20241863Yksttv30/18/2025Telephone [facility]BA[facility] [address] [place] [address] Racquel Tinsley, SKYLER 10/25/2024Telephone [facility] [address] [place] [address] Liseth Carmichael LPN from Last 3 Months Social History Tobacco UseTypesPacks/DayYears UsedDateSmoking Tobacco: Never Assessed Estimated Date of BmwnnyeyKlhbpvobXwf54/27/2026ased on last menstrual period of 10/01/2024Sex and Gender InformationValueDate RecordedSex Assigned at BirthFemale 06/15/2023 12:49 PM EDTLegal KrvAxouux95/15/2023 7:27 PM EDTGender Identity Aveuag2105/26/2022 7:27 PM EDTSexual OrientationNot on file Last Filed Vital Signs Vital SignReadingTime TakenCommentsBlood Mihoyvbr595/6801/08/2025 2:47 PM EDT Pulse--Temperature--Respiratory Rate--Oxygen Saturation--Inhaled Oxygen Concentration--Liwxpj35.9 kg (171 lb 12.8 oz)01/08/2025 2:47 PM DHDFzhqrz618 cm (5' 3 )07/05/2022 12:00 PM EDTBody Mass Index30.43007/05/2022 12:00 PM EDT Plan of Treatment DateTypeDepartmentCare Team (Latest Contact Info)Hxkognytwqu00/26/2025 1:40 PM ESTRoutine [facility] [address] [place] [address] Bakari Proctor, DO [address] [place] [address] [place] [address] Health MaintenanceDue DateLast DoneCommentsMMR Vaccines (1 of 1 - Standard series)12/11/1999DTaP/Tdap/Td Vaccines (1 - Tdap)2005Varicella Vaccines (1 of 2 - 13+ 2-dose series)12/11/2011HPV Vaccines (1 - 3-dose series)2013 Hepatitis B Vaccines (1 of 3 - 19+ 3-dose series)2017COVID-19 Vaccine (1 - season)2024Influenza Vaccine (#1)HIB Vaccines Aged OutNo longer eligible based on patient's age to complete this topic Hepatitis A VaccinesAged OutNo longer eligible based on patient's age to complete this topicIPV VaccinesAged OutNo longer eligible based on patient's age to complete this topicMeningococcal B VaccineAged OutNo longer eligible based on patient's age to complete this topicMeningococcal VaccineAged OutNo longer eligible based on patient's age to complete this topicPneumococcal Vaccine: Pediatrics (0 to 5 Years) and At-Risk Patients (6 to 64 Years)Aged OutNo longer eligible based on patient's age to complete this topicRotavirus VaccinesAged Out No longer eligible based on patient's age to complete this topic Goals GoalPatient Goal TypeAssociated ProblemsRecent ProgressPatient-Stated?Author Reminders Care PlanOB RemindersNoOpen Scheduling, Background Procedures Procedure NamePriorityDate/TimeAssociated DiagnosisCommentsPOCT URINALYSIS NHMQFKKEArvdepm11/28/2025 2:51 PM EDT 14 weeks gestation of ([facility] CULTURE, URINE, KHNRPSWSkrvvgq63/30/2025 4:01 PM EDT Missed menses POCT URINALYSIS TWHSKDNPTktpimp33/30/2025 2:12 PM EDT 10 weeks gestation of ([facility]) First trimester ([facility]) HBSAG OPNAXBKwmmaue14/22/2025 9:14 AM EDT RAPID PLASMA REAGIN, BDJLHFmvsode30/22/2025 9:14 AM EDT HCV ANTIBODY RFX TO QUANT UORYoijxxh30/22/2025 9:14 AM EDT ALL RUBELLA IGG OOBhbgerv65/22/2025 9:14 AM EDT HIV AB/P24 AG WITH LYKKAFHdiloqc65/22/2025 9:14 AM EDT ALL TYPE AND SNTHCHKwyygri68/22/2025 9:14 AM EDT BOX IBFRPuwpqwv31/22/2025 9:14 AM EDT MLR HEMOGLOBIN W1RIknfsch55/22/2025 9:14 AM EDT ALL CBC WITH AUTO WELTKxburxo30/22/2025 9:14 AM EDT TBH DRUG SCREEN RAPID (URINE)Vnnouhp8512/03/2024 8:55 AM EDT POCT URINALYSIS QPFXNKPLQglsfui29/04/2025 1:36 PM EDT Missed menses POCT , UACWXExafnkr57/04/2025 1:35 PM EDT Missed menses US OB FMKVZFKTPWDJFrbqitg46/04/2025 1:22 PM EDT Missed menses Positive urine test ([facility]) from Last 3 Months Results * (ABNORMAL) POCT urinalysis dipstick manually resulted (01/08/2025 2:51 PM EDT) Only the most recent of3 resultswithin the time period is included. ComponentValueRef RangeTest MethodAnalysis TimePerformed AtPathologist Signature Color, UAYellowClarity, UAClearGlucose, UANegativeNegative - 2000(110) ++++ mg/dLBilirubin, UANegativeNegative - 4(70) +++ mg/dLKetones, UAPositiveNegative - 160(16) ++++ mg/dLSpec Grav, UA1.0301 - 1.03Blood, UANegativeNegative - 50 Raul/mcLpH, UA5.55 - 9Protein, UANegativeNegative - 2000(20) ++++ mg/dL Urobilinogen, UA0.20.2 - 12 mg/dLLeukocytes, UANegativeNegative - 500+++ Anitra/mcL Nitrite, UANegativeNegative - PositiveSpecimen (Source)Anatomical Location / LateralityCollection Method / VolumeCollection TimeReceived UicxWcvyq07/28/2025 2:51 PM EDT Narrative Authorizing ProviderResult TypeResult StatusValentina Archer [facility] TEST ENTER/EDIT ORDERABLESFinal Result * Urine culture (12/11/2024 4:01 PM EDT)Specimen (Source)Anatomical Location / LateralityCollection Method / VolumeCollection TimeReceived TimeUrineUrine specimen obtained by clean catch procedure / Unknown Narrative Authorizing ProviderResult TypeResult StatusCoreboston [facility] - GENERAL ORDERABLESFinal ResultPerforming OrganizationAddressCity/State/ZIP Code Phone Number EXTERNAL LAB * BOX TEST (12/03/2024 9:14 AM EDT)ComponentValueRef RangeTest MethodAnalysis TimePerformed AtPathologist SignatureBOX TEST SENT OUTUNITY IVJOTZSLC7FARAFDMN BOXTBHSpecimen (Source)Anatomical Location / LateralityCollection Method / VolumeCollection TimeReceived Time12/03/2024 9:14 AM EDT12/03/2024 9:20 AM EDT Narrative CLINISYNC - 12/03/2024 10:43 AM EDT Authorizing ProviderResult TypeResult StatusCoreboston MCMAHANAB BLOOD ORDERABLES Final ResultPerforming OrganizationAddressCity/State/ZIP CodePhone Number CLINISYNC [facility] * HBSAG SCREEN (12/03/2024 9:14 AM EDT)ComponentValueRef RangeTest Method Analysis TimePerformed AtPathologist SignatureHBSAG SCREENNegativeNegativeTBH Comment: Performed at: ??[address] ??[id number] Conduit Cleaner: Quintin Rosen PhD, Phone: ??[phone] Specimen (Source)Anatomical Location / LateralityCollection Method / Volume Collection TimeReceived Time12/03/2024 9:14 AM EDT12/03/2024 9:20 AM EDT Narrative CLINISYNC - 12/04/2024 1:09 PM EDT Authorizing ProviderResult TypeResult StatusCorey Hitesh DOLAB BLOOD ORDERABLES Final ResultPerforming OrganizationAddressCity/State/ZIP CodePhone Number [facility] * RAPID PLASMA REAGIN, QUANT (12/03/2024 9:14 AM EDT)ComponentValueRef RangeTest MethodAnalysis TimePerformed AtPathologist SignatureRAPID PLASMA REAGIN, QUANT Non ReactiveNonRea<1:1 titerTBHComment: Please Note: This test does not meet current guidelines for screening and diagnosis of syphilis. This test is intended for following treatment response in patients being treated for syphilis infection. To screen for syphilis infection, a reflex cascade that includes both RPR and a treponema-specific assay should be utilized, such as Treponema pallidum (Syphilis) Screening [place] (304468) or Rapid Plasma Reagin (RPR) Test With Reflex to Quantitative RPR and Confirmatory Treponema pallidum Antibodies (588028). Performed at: ??[address] ??[id number] Conduit Cleaner: Quintin Rosen PhD, Phone: ??[phone] Specimen (Source)Anatomical Location / LateralityCollection Method / Volume Collection TimeReceived Time12/03/2024 9:14 AM EDT12/03/2024 9:20 AM EDT Narrative CLINISYNC - 12/04/2024 1:09 PM EDT Authorizing ProviderResult TypeResult StatusCorey Hitesh DOLAB BLOOD ORDERABLES Final ResultPerforming OrganizationAddressCity/State/ZIP CodePhone Number [facility] * HIV AB/P24 AG WITH REFLEX (12/03/2024 9:14 AM EDT)ComponentValueRef RangeTest MethodAnalysis TimePerformed AtPathologist SignatureHIV AB/P24 AG SCREENNon ReactiveNon ReactiveTBHComment: HIV-1/HIV-2 antibodies and HIV-1 p24 antigen were NOT detected. There is no laboratory evidence of HIV infection. HIV Negative Performed at: ??[address] ??[id number] Conduit Cleaner: Quintin Rosen PhD, Phone: ??[phone] Specimen (Source)Anatomical Location / LateralityCollection Method / Volume Collection TimeReceived Time12/03/2024 9:14 AM EDT12/03/2024 9:20 AM EDT Narrative CLINISYNC - 12/04/2024 6:08 AM EDT Authorizing ProviderResult TypeResult StatusCorey Hitesh DOLAB BLOOD ORDERABLES Final ResultPerforming OrganizationAddressCity/State/ZIP CodePhone Number [facility] * HCV ANTIBODY RFX TO QUANT PCR (12/03/2024 9:14 AM EDT)ComponentValueRef Range Test MethodAnalysis TimePerformed AtPathologist SignatureHCV ABNon ReactiveNon ReactiveTBHINTERPRETATION:Comment.TBHComment: Not infected with HCV unless early or acute infection is suspected (which may be delayed in an immunocompromised individual), or other evidence exists to indicate HCV infection. Performed at: ??[address] ??[id number] Conduit Cleaner: Quintin Rosen PhD, Phone: ??[phone] Specimen (Source)Anatomical Location / LateralityCollection Method / Volume Collection TimeReceived Time12/03/2024 9:14 AM EDT12/03/2024 9:20 AM EDT Narrative CLINISYNC - 12/04/2024 7:07 AM EDT Authorizing ProviderResult TypeResult StatusCorey Hitesh DOLAB BLOOD ORDERABLES Final ResultPerforming OrganizationAddressCity/State/ZIP CodePhone Number [facility] * MLR HEMOGLOBIN A1C (12/03/2024 9:14 AM EDT)ComponentValueRef RangeTest Method Analysis TimePerformed AtPathologist SignatureGLYCOHEMOGLOBIN A1C4.94.5 - 6.2 %TBHComment: ADA RECOMMENDED LIMIT 4.0 - 6.0 ADA THERAPEUTIC TARGET < 7.0 ACTION SUGGESTED > 7.0 ESTIMATED AVERAGE QOCZESH29bi/dLTBHSpecimen (Source)Anatomical Location / LateralityCollection Method / VolumeCollection TimeReceived Time12/03/2024 9:14 AM EDT12/03/2024 9:20 AM EDT Narrative CLINISYNC - 12/03/2024 10:16 AM EDT Authorizing ProviderResult TypeResult StatusCorey Hitesh DOCLINISYNCFinal Result Performing OrganizationAddPenn [facility] St[facility] Centerty/State/ZIP CodePhone Number [facility] * ALL TYPE AND SCREEN (12/03/2024 9:14 AM EDT)ComponentValueRef RangeTest Method Analysis TimePerformed AtPathologist SignatureBLOOD TYPEO PositiveTBHANTIBODY SCREENNEGATIVETBHSpecimen (Source)Anatomical Location / LateralityCollection Method / VolumeCollection TimeReceived Time12/03/2024 9:14 AM EDT12/03/2024 9:20 AM EDT Narrative CLINISYIN - 12/03/2024 11:00 AM EDT [facility] , ?? Authorizing ProviderResult TypeResult StatusCorey Hitesh DOCLINISYNCFinal Result Performing OrganizationAddressty/State/ZIP CodePhone Number [facility] * ALL RUBELLA IGG AB (12/03/2024 9:14 AM EDT)ComponentValueRef RangeTest Method Analysis TimePerformed AtPathologist SignatureRUBELLA ANTIBODIES, IGG8.90 Immune >0.99 indexTBHComment: Non-immune <0.90 ?Equivocal ??0.90 - 0.99 Immune >0.99 Performed at: ?? - [facility] [address] [place] [address], [place], [place] ??[id number] Conduit Cleaner: Quintin Rosen PhD, Phone: ??[phone] Specimen (Source)Anatomical Location / LateralityCollection Method / Volume Collection TimeReceived Time12/03/2024 9:14 AM EDT12/03/2024 9:20 AM EDT Narrative CLINISYNC - 12/04/2024 7:07 AM EDT Authorizing ProviderResult TypeResult StatusCorey Hitesh DOCLINISYNCFinal Result Performing OrganizationAddressCity/State/ZIP CodePhone Number [facility] * (ABNORMAL) ALL CBC WITH AUTO DIFF (12/03/2024 9:14 AM EDT)ComponentValueRef RangeTest MethodAnalysis TimePerformed AtPathologist SignatureTBH WBC10.74.0 - 11.0 10 3/uLTBHTBH RBC4.234.20 - 5.40 10 6/uLTBHTBH HGB13.012.0 - 16.0 g/dLTBH TBH HCT36.936.0 - 48.0 %TBHTBH MCV87.281.0 - 99.0 fLTBHTBH MCH30.726.7 - 34.0 pgTBHTBH MCHC35.229.9 - 35.2 g/dLTBHTBH RDW12.411.0 - 15.0 %TBHTBH [id number] - 450 10 3/uLTBHTBH MPV8.6(L)9.5 - 13.5 fLTBHNEUTROPHILS PERCENT AUTO72.243.0 - 75.0 %TBHLYMPHOCYTES PERCENT AUTO20.4(L)20.5 - 60.0 %TBHMONOCYTES PERCENT AUTO 6.11.7 - 12.0 %TBHTBH EO %0.6(L)0.9 - 7.0 %TBHBASOPHILS PERCENT AUTO0.20.2 - 2.0 %TBHIMMATURE GRANULOCYTES PCT AUTO0.50.0 - 0.5 %TBHNEUTROPHILS ABSOLUTE AUTO7.8(H)1.4 - 6.5 10 3/uLTBHLYMPHOCYTES ABSOLUTE AUTO2.21.2 - 3.8 10 3/uLTBH MONOCYTES ABSOLUTE AUTO0.70.3 - 0.8 10 3/uLTBHTBH EO #0.10.0 - 0.7 10 3/uLTBH BASOPHILS ABSOLUTE AUTO0.00.0 - 0.1 10 3/uLTBHIMMATURE GRANULOCYTES ABS AUTO 0.05(H)0.00 - 0.03 10 3/uLTBHSpecimen (Source)Anatomical Location / Laterality Collection Method / VolumeCollection TimeReceived Time12/03/2024 9:14 AM EDT 12/03/2024 9:20 AM EDT Narrative CLINISYIN - 12/03/2024 10:07 AM EDT Authorizing ProviderResult TypeResult StatusCorey Hitesh DOCLINISYNCFinal Result Performing OrganizationAddressCity/State/ZIP CodePhone Number [facility] * [facility] DRUG SCREEN RAPID (URINE) (12/03/2024 8:55 AM EDT)ComponentValueRef Range Test MethodAnalysis TimePerformed AtPathologist SignatureCANNABINOID SCREEN URINENEGATIVENEGATIVETBHPHENCYCLIDINE SCREEN URINENEGATIVENEGATIVETBHCOCAINE SCREEN URINENEGATIVENEGATIVETBHMETHAMPHETAMINES SCREEN URINENEGATIVENEGATIVE TBHOPIATE SCREEN URINENEGATIVENEGATIVETBHAMPHETAMINE SCREEN URINENEGATIVE NEGATIVETBHBENZODIAZEPINES SCREEN URINENEGATIVENEGATIVETBHTRICYCLIC ANTIDEPRESSANT URINENEGATIVENEGATIVETBHMETHADONE SCREEN URINENEGATIVENEGATIVE TBHBARBITURATES SCREEN URINENEGATIVENEGATIVETBHOXYCODONE SCREEN URINENEGATIVE NEGATIVETBHBUPRENORPHINE SCREEN URINENEGATIVENEGATIVETBHComment: DRUG CLASS TEST SYSTEM CUT-OFF CONCENTRATIONS ARE FOLLOWS: AMP (Amphetamine): 500 ng/mL BAR (Barbiturates): 200 ng/mL BZO (Benzodiazepines): 150 ng/mL BUP (Buprenorphine): 10 ng/mL OZZIE (Cocaine): 150 ng/mL mAMP (Methamphetamine): 500 ng/mL MTD (Methadone): 200 ng/mL OPI (Opiates): 100 ng/mL OXY (Oxycodone): 100 ng/mL PCP (Phencyclidine): 25 ng/mL THC (Cannabinoids): 50 ng/mL TCA (Trycyclic Antidepressants): 300 ng/mL Specimen (Source)Anatomical Location / LateralityCollection Method / Volume Collection TimeReceived Time12/03/2024 8:55 AM EDT12/03/2024 9:20 AM EDT Narrative CLINISYIN - 12/03/2024 10:44 AM EDT Authorizing ProviderResult TypeResult StatusCorey Hitesh DOCLINISYNCFinal Result Performing OrganizationAddressCity/State/ZIP CodePhone Number [facility] * (ABNORMAL) POCT , urine manually resulted (11/15/2024 1:35 PM EDT) ComponentValueRef RangeTest MethodAnalysis TimePerformed AtPathologist SignaturePreg Test, UrPositiveNegativeSpecimen (Source)Anatomical Location / LateralityCollection Method / VolumeCollection TimeReceived TimeUrine 11/15/2024 1:35 PM EDT Narrative Authorizing ProviderResult TypeResult StatusCorey Hitesh DOPOINT OF CARE TEST ENTER/EDIT ORDERABLESFinal Result * US OB transvaginal (11/15/2024 1:22 PM EDT)Anatomical RegionLateralityModality BodyUltrasoundSpecimen (Source)Anatomical Location / LateralityCollection Method / VolumeCollection TimeReceived Time11/15/2024 3:15 PM EDT Impressions 11/15/2024 3:25 PM EDT Findings consistent with a live intrauterine gestation, current sonographic age of 6 weeks and 6 days resulting in an estimated date of delivery of July 05, 2025. TRANSCRIBED BY: ? ELECTRONICALLY SIGNED BY: Zach Rios MD Narrative 11/15/2024 3:25 PM EDT FINDINGS: A single intrauterine gestational sac is present. ??No subchorionic hemorrhage. ??A single pole is present. Normal heart rate at 118 beats per minute. ??Yolk sac also is seen. ?? Current sonographic age is 6 weeks and 6 days based on the crown-rump length measurement of 7 mm (6 weeks and 4 days) and gestational sac measurement of 2.4 cm (7 weeks and 0 days). ??Based on this age, current estimated date of delivery is July 05, 2025. ??No pelvic fluid or adnexal mass present. ??Cervixis closed. Procedure Note Zach Rios MD - 11/15/2024 FINDINGS: A single intrauterine gestational sac is present. No subchorionichemorrhage. A single pole is present. Normal heart rate at118 beats per minute. Yolk sac also is seen. Current sonographic age is6 weeks and 6 days based on the crown-rump length measurement of 7 mm (6weeks and 4 days) and gestational sac measurement of 2.4 cm (7 weeks and 0days). Based on this age, current estimated date of delivery is June. No pelvic fluid or adnexal mass present. Cervix is closed. IMPRESSION: Findings consistent with a live intrauterine gestation, currentsonographic age of 6 weeks and 6 days resulting in an estimated date ofdelivery of July 05, 2025. TRANSCRIBED BY: ELECTRONICALLY SIGNED BY: Zach Rios MD Authorizing ProviderResult TypeResult StatusCorey Hitesh DOIMG OB US PROCEDURES Final Result from Last 3 Months Additional Health Concerns Active ProblemsNoted DateDiagnosed DateOB Bnyrjlrjl11/18/2024 Insurance Care Teams Team MemberRelationshipSpecialtyStart DateEnd Date Unallocated, Noms MD Leanna [address] [place] [address] PCP - GeneralFamily Medicine09/26/23
--- OUTSIDE RECORDS SUMMARY | 2025-01-08 19:25 | XMS_ITS | CCD ---
Author Organization [facility] Care Team Providers Care Program Project Manager Name Role Phone NONE, XXXX Primary Care Physician Unavailab thee PROCTOR, DR PLASENCIA Attending Unavailable HITESH, DR PLASENCIA Consulting Unavailable HITESH, DR PLASENCIA Admitting Unavailable ZIEBER, DR MACARENA Kim Consulting Unavailable Unavailable Primary Care Provider UnavailELVA Caldera Attending Unavailable DO Rodrigo Berg Attending Unavailable Love Palmer Attending Unavailable Love Palmer Admitting Unavailable DO Rodrigo Berg Attending Unavailable Unallocated , Stephany Provider Primary Care Provi que HITESHMICAHY Judy Referring Unavailable STEFFANIE YORK Attending Unavailable STEFFANIE YORK Referring Unavailable Unallocated Stephany CORMIER Provider Primary Care Provi que Unavailable Primary Care Provider Unavailliberty downey HITESH, Bakari R Admitting Unavailable HITESH, Bakari R Attending Unavailable HITESHMicahy R Attending Unavailable Micah PROCTORy R Admitting Unavailable BAKARI PROCTOR Attending Unavailable VALENTINA CORDOVA Attending Unavailable SUZIVALENTINA HENDERSON Referring Unavailable HITESHBAKARI Attending Unavailable SUZI VALENTINA Attending Unavailable SUZI VALENTINA Attending Unavailable BAKARI PROCTOR Attending Unavailable SUZIVALENTINA HENDERSON Attending Unavailable SUZI VALENTINA Attending Unavailable BAKARI PROCTOR Attending Unavailable LAYLA RAO Attending Unavailable Medications Current Medications MedicationDrug Class(es)DatesSig (Normalized)Sig (Original)cephalexin 500 mg oral capsule (1 source)Cephalosporin AntibacterialStart: 09-22-2023 End: 89-98-4231imcv 1 capsule by mouth every twelve hoursKeflex 500 mg Cap 500 mg = 1 cap(s), Oral, q12hr, X 5 day(s), # 10 cap(s), Refills(s) 0, Pharmacy: [facility]/pharmacy #[id number], 160, cm, 09/22/23 5:34:00 EDT, Height/Length Dosing, 72.4, kg, 09/22/23 5:34:00 EDT, Weight Dosing Start Date: 09/22/23 Stop Date: 09/27/23 Status: Orderedcitalopram 20 mg oral tablet (4 sources)Serotonin Reuptake InhibitorStart: 14-19-2054mgfy 1 tablet by mouth once dailycitalopram 20 mg Tab TAKE 1 TABLET BY MOUTH EVERY DAY Start Date: 03/12/19 Status: Ldbpjfi64 day ethinyl estradiol 0.085846 mg/hr / etonogestrel 0.005 mg/hr vaginal system (3 sources)Progestin, EstrogenStart: 30-39-3613Ewkgjsgx 0.015 mg-0.120 mg Ring INSERT 1 RING VAGINALLY DIRECTED. REMOVE AFTER 3 WEEKS & WAIT 7 DAYS BEFORE INSERTING A NEW RING Start Date: 03/12/19 Status: Orderedibuprofen 400 mg oral tablet (4 sources)Nonsteroidal Anti-inflammatory DrugStart: 75-77-2668ulhl 1 tablet by mouth every six hours as needed for painibuprofen 400 mg Tab 400 mg = 1 tab(s), Oral, q6hr, PRN as needed for pain, # 15 tab(s), Refills(s)0 Start Date: 07/26/15 Status: Orderednaproxen 250 mg oral tablet (1 source)Nonsteroidal Anti-inflammatory DrugStart: 07-18-2023 End: 92-09-7383qadx 2 tablets by mouth twice daily at mealtimenaproxen (NAPROSYN) 250 MG tablet Take 2 tablets by mouth 2 times daily (with meals) for 10 days 40tablet 0 07/18/2023 07/28/2023 ActiveNuvaring 0.015 mg-0.120 mg Ring (1 source)Start: 94-19-1189Unphiesq 0.015 mg-0.120 mg Ring INSERT 1 RING VAGINALLY DIRECTED. REMOVE AFTER 3 WEEKS & WAIT 7 DAYS BEFORE INSERTING A NEW RING Start Date: 03/12/19 Status: Orderedondansetron 4 mg disintegrating oral tablet (20 sources)Serotonin-3 Receptor AntagonistStart: 11-15-2024 End: 01-68-0375nwjv 1 tablet by mouth every six hours as needed for nausea and vomiting and nausea and nauseaondansetron ODT (Zofran-ODT) 4 MG disintegrating tablet Indications: Nausea Take 1 tablet (4 mg) bymouth every 6 (six) hours if needed for nausea or vomiting 30 tablet 2 11/15/2024 12/15/2024 ActiveStart: 11-15-2023 End: 28-25-4750lrwyfdkilse ODT (Zofran-ODT) 4 MG disintegrating tablet 11/15/2023 06/04/2024 Discontinued (Therapycompleted)take 1 tablet by mouth every eight hours as needed for nausea and vomitingondansetron (ZOFRAN) 4 mg tablet Take 1 tablet (4 mg total) by mouth every 8 (eight) hours as needed for nausea or vomiting. ActivePnv #60-Ghmf-Pwwgt Acid-Omega3 (1 source)Start: 79-43-4377Cbf #79-Ovpr-Nqkad Acid-Omega3 Active CAP PO December 08, 2023 12:00ampredniSONE 20 mg oral tablet (1 source)Start: 07-07-2022 End: 78-79-1996qjvu 2 tablets by mouth once dailypredniSONE 20 mg Tab 40 mg = 2 tab(s), Oral, Daily, X 5 day(s), # 10 tab(s), Refills(s) 0, Pharmacy: [facility]/pharmacy #[id number], 160, cm, 07/07/22 9:38:00 EDT, Height/Length Dosing, 90, kg, 07/07/22 9:38:00 EDT, Weight Dosing Start Date: 07/07/22 Stop Date: 07/12/22 Status: Orderedprenatal vit no.124/iron/folic ( VITAMIN ORAL) (2 sources) vit no.124/iron/folic ( VITAMIN ORAL) Take by mouth. Activepromethazine hydrochloride 12.5 mg oral tablet (7 sources)PhenothiazineStart: 22-11-8858zxil 1 tablet by mouth every six hours as needed for nausea and vomiting and nausea and nauseapromethazine (Phenergan) 12.5 MG tablet Indications: Nausea Take 1 tablet (12.5 mg) by mouth every 6 (six) hours if needed for nausea or vomiting for up to 30 doses Take 1 tablet by mouth every 6 hours as needed for nausea. 30 tablet 2 12/03/2024 ActiveStart: 87-17-8400oeoc 1 tablet by mouth every eight hours as needed for nausea promethazine 12.5 mg oral tablet 12.5 mg = 1 tab(s), Oral, q8hr, PRN as needed for nausea/vomiting,# 12 tab(s), Refills(s) 0, Pharmacy: [facility]/pharmacy #[id number], 160, cm, 09/22/23 5:34:00 EDT, Height/Length Dosing, 72.4, kg, 09/22/23 5:34:00 EDT, Weight Dosing Start Date: 09/22/23 Status: OrderedvalACYclovir 500 mg oral tablet (20 sources)Herpesvirus Nucleoside Analog DNA Polymerase Inhibitor, Herpes Simplex Virus Nucleoside Analog DNA Polymerase Inhibitor, Herpes Zoster Virus Nucleoside Analog DNA Polymerase InhibitorStart: 61-78-8405Qmagcsypyjcy Active MG PO December 08, 2023 12:00amStart: 03-12-2019 End: 22-98-1082hafx 1 tablet by mouth once dailyvalACYclovir (Valtrex) 500 MG tablet Indications: Herpes simplex Take 1 tablet (500 mg) by mouth Daily 90 tablet 3 06/04/2024 09/02/2024 Active Completed/Discontinued Medications MedicationDrug Class(es)DatesSig (Normalized)Sig (Original)amoxicillin 875 mg oral tablet (10 sources)Penicillin-class AntibacterialStart: 12-08-2023 End: 12-61-3756gzxg 1 tablet by mouth in the morningamoxicillin (Amoxil) 875 MG tablet Take 875 mg by mouth in the morning and 875 mg before bedtime. 12/08/2023 02/08/2024 Discontinued (Therapy completed)azithromycin 250 mg oral tablet (7 sources)Macrolide AntimicrobialStart: 11-15-2024 End: 55-84-4220bvslsnqzblvh (Zithromax Z-Jensen) 250 MG tablet Indications: Sinus congestion As directed 6 tablet 11/15/2024 12/11/2024 DiscontinuedStart: 11-22-2023 End: 65-21-0123vqwoalrmdheo (Zithromax Z-Jensen) 250 MG tablet Indications: URI, acute As directed 6 tablet 11/22/2023 12/14/2023 DiscontinuedEthinyl Estradiol / Levonorgestrel (1 source)Progestin, Estrogen, Progestin-containing Intrauterine DeviceStart: 06-18-2024 End: 77-15-0404zvwv 1 tablet by mouth once daily, then take 1 tablet by mouth once dailylevonorgestrel-ethinyl estradiol (Jolessa) 0.15-0.03 MG tablet Indications: Uses control Take1 tablet by mouth Daily Take 1 tablet by mouth daily 84 tablet 3 06/18/2024 11/15/2024 Discontinued1 ml ketorolac tromethamine 30 mg/ml cartridge (1 source)Nonsteroidal Anti-inflammatory Drug, Cyclooxygenase InhibitorStart: 07-18-2023 End: 69-66-9472rrjlmeobl (TORADOL) injection 30 mgnorethindrone 0.35 mg oral tablet (3 sources)Start: 09-04-2024 End: 83-08-0597mkfb 1 tablet by mouth once daily, then take 1 tablet by mouth once dailyJencycla 0.35 MG tablet Indications: 6 weeks follow-up ([facility]) TAKE 1 TABLET (0.35 MG)BY MOUTH DAILY TAKE 1 TABLET BY MOUTH DAILY 84 tablet 3 09/04/2024 11/15/2024 DiscontinuedStart: 06-04-2024 End: 28-43-1874minv 1 tablet by mouth once daily, then take 1 tablet by mouth once dailynorethindrone (Micronor) 0.35 MG tablet Indications: 6 weeks follow-up Take 1 tablet (0.35 mg) by mouth Daily Take 1 tablet by mouth daily 84 tablet 06/04/2024 08/27/2024 Activeprogesterone 200 mg oral capsule (1 source)ProgesteroneStart: 11-01-2024 End: 90-89-1024plkx 1 capsule by mouth once dailyprogesterone 200 MG capsule Indications: Missed menses , History of miscarriage Take 1 capsule (200mg) by mouth Daily 30 capsule 3 11/01/2024 11/15/2024 Discontinuedpyridoxine hydrochloride 25 mg oral tablet (5 sources)Start: 12-11-2024 End: 01-05-9206kwqr 1 tablet by mouth every eight hourspyridoxine (Vitamin B-6) 25 MG tablet Indications: Nausea Take 1 tablet (25 mg) by mouth every 8 (eight) hours 90 tablet 1 12/11/2024 01/08/2025 Fohdgisvuysc46 hr venlafaxine 37.5 mg extended release oral capsule (17 sources)Serotonin and Norepinephrine Reuptake InhibitorStart: 03-27-2024 End: 88-25-9382pfqm 1 capsule by mouth once dailyvenlafaxine XR (Effexor XR) 37.5 MG 24 hr capsule Indications: Mood disorder Take 1 capsule (37.5 mg) by mouth Daily Do not crush or chew. 90 capsule 3 04/23/2024 11/15/2024 Discontinued Problems Active Problems Problem ClassificationProblemDateDocumented DateEpisodic/ChronicAnxiety disorders (4 sources)Mkiwjfg49-01-5718CuhvqvmIpqsdfvkgbtho symptoms and ill-defined conditions (1 source)Bacteriuria; Translations: [Bacteriuria]Onset: 10-02-9973Nnofdcix Hemorrhage during ; abruptio placenta; placenta previa (11 sources)Placenta previa partialis; Translations: [Partial placenta previa NOS or without hemorrhage, unspecified trimester]Onset: 332009-94-7065 EpisodicMenstrual disorders (1 source)Missed period; Translations: [Irregular menstruation, unspecified] 05-61-0504PbwqobcHtsv disorders (6 sources)Depression; Translations: [Mood disorder]52-61-9348LfpkzgmHzxdor and vomiting (3 sources)Nausea; Translations: [Nausea]56-62-8655ZmzxpglgUqkaw circulatory disease (1 source)Personal history of other diseases of the circulatory system; Translations: [Personal history of other diseases of the circulatory system] Onset: 29-13-7504JrylvgwpPhejq complications of (1 source)Vomiting of ; Translations: [Vomiting of , unspecified]Onset: 72-29-0525QgazvvinSdmjq complications of (1 source)Complication of , childbirth and/or the puerperium; Translations: [Other specified diseases and conditions complicating ] Onset: 09-79-6672YbddsgomRexpq complications of (2 sources) size does not accord with dates; Translations: [Uterine size- date discrepancy, unspecified trimester]65-59-4942XjnmpnctPqxgh complications of (2 sources)Excessive growth affecting management of mother; Translations: [Maternal care for excessive growth, third trimester, not applicable or unspecified]24-47-7054DgcoyfnrRzluj connective tissue disease (1 source)Enthesopathy; Translations: [Other enthesopathies, not elsewhere classified]Onset: 96-81-0607RbjxhgwyAfpqv connective tissue disease (1 source)Tenosynovitis of left radial styloid; Translations: [Radial styloid tenosynovitis [de Quervain]]03-35-5618HewhtiqzRlmib connective tissue disease (1 source)Radial styloid tenosynovitis [de Quervain]; Translations: [Radial styloid tenosynovitis (de quervain)]Onset: 28-21-1275DhjnsyfqYzrwq endocrine disorders (4 sources)Polycystic ovarian syndrome; Translations: [POLYCYSTIC OVARIAN SYNDROME]Onset: 00-83-1285SmvnwjyDehwp infections; including parasitic (4 sources)H/O: viral cadoejt61-72-4539RszvqpgjWqfqy nutritional; endocrine; and metabolic disorders (1 source)Obese class II; Translations: [Body mass index (BMI) 35.0-35.9, adult] Onset: 79-14-6855FtiarsdVdhic and delivery including normal (20 sources)Second trimester ; Translations: [Encounter for supervision of normal , unspecified, second trimester]78-62-6858FlvlkrixRyvno screening for suspected conditions (not mental disorders or infectious disease) (11 sources)No current problems or disability; Translations: [Patient encounter status]Onset: 642286-80-3863UoxsvdzvEbnbd upper respiratory disease (1 source)Congestion of nasal sinus; Translations: [Nasal congestion]11-15-2024 EpisodicOtitis media and related conditions (4 sources)Otitis -14-8293UxtcalmcGazpuduy codes; unclassified (2 sources)Gestation period, 20 weeks; Translations: [20 weeks gestation of ]85-85-1087EornwsuuNjnymakf codes; unclassified (2 sources)Gestation period, 24 weeks; Translations: [24 weeks gestation of ]39-89-5810LjetjkzsPflakbyi codes; unclassified (2 sources)Gestation period, 28 weeks; Translations: [28 weeks gestation of ]75-81-6318GvgexksfGkrnmgex codes; unclassified (2 sources)Gestation period, 30 weeks; Translations: [30 weeks gestation of ]04-44-6647PwvymyaxPeddgkgk codes; unclassified (2 sources)Gestation period, 33 weeks; Translations: [33 weeks gestation of ]13-39-3486EnwbkejoXscxkgvk codes; unclassified (2 sources)Gestation period, 35 weeks; Translations: [35 weeks gestation of ]35-64-6217FxbomxnzEdctnkwn codes; unclassified (2 sources)Gestation period, 36 weeks; Translations: [36 weeks gestation of ]76-44-2573NcapfnxgZlevfgvd codes; unclassified (2 sources)Gestation period, 37 weeks; Translations: [37 weeks gestation of ]93-21-0723DppjsxijElhfoclv codes; unclassified (2 sources)Gestation period, 39 weeks; Translations: [39 weeks gestation of ]36-40-8807LhqhsupjEofvqlfn codes; unclassified (2 sources)Gestation period, 10 weeks; Translations: [10 weeks gestation of ]24-43-1391PgiprjkpOtequtys codes; unclassified (2 sources)H/O: miscarriage; Translations: [Personal history of other complications of , childbirth and the puerperium]06-07-6061Aykvetue Residual codes; unclassified (2 sources)Gestation period, 14 weeks; Translations: [14 weeks gestation of ]32-41-3938HorfuqkmTqnxaezumqky (20 sources)OB RemindersOnset: 663013-68-3291Eecnhatqrwaf (1 source)partial placenta previaOnset: 79-34-4827Bsjhv infection (1 source)Anogenital herpesviral infection; 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, unspecified]55-45-6238SlkocibAncfr infection (6 sources)Herpes simplex; Translations: [Herpesviral infection, unspecified] 22-24-2649Buwcbdhx Past or Other Problems Problem ClassificationProblemDateDocumented DateEpisodic/ChronicImmunizations and screening for infectious disease (2 sources)Exposure to sexually transmissible disorder; Translations: [Contact with and (suspected) exposure to infections with a predominantly sexual mode of transmission]45-83-3370UqrfiqebZarty circulatory disease (1 source)History of clinical finding in subject; Translations: [Personal history of other diseases of the circulatory system]46-21-3362Nzcbokib Unclassified (1 source)History of clinical finding in ntxtugx33-68-7854 Results Test NameValueInterpretationReference RangeFacilityUrinalysis macro (dipstick) panel (U)on 54-78-8901Rzyoilwsw, UANegativeNegative - 4(70) +++ mg/dLNOMS HealthcareBlood, UANegativeNegative - 50 Raul/mcLNOMS HealthcareClarity, UAClear NOMS HealthcareColor, UAYellowNOMS HealthcareGlucose, UANegativeNegative - 1999(110) ++++ mg/dLNOMS HealthcareInterpretation and review of laboratory resultsAbnormalNOMS HealthcareKetones, UAPositiveNegative - 160(16) ++++ mg/dL NOMS HealthcareLeukocytes, UANegativeNegative - 500+++ Anitra/mcLNOMS Healthcare Nitrite, UANegativeNegative - PositiveNOMS HealthcarepH, UA5.55 - 9NOMS HealthcareProtein, UANegativeNegative - 2000(20) ++++ mg/dLNOMS HealthcareSpec Grav, UA1.0301 - 1.03NOMS HealthcareUrobilinogen, UA0.20.2 - 12 mg/dLNOMS HealthcareNOMS HealthcareUrinalysis macro (dipstick) panel (U)on 12-11-2024 Bilirubin, UANegativeNegative - 4(70) +++ mg/dLNOMS HealthcareBlood, UANegative Negative - 50 Raul/mcLNOMS HealthcareClarity, UAClearNOMS HealthcareColor, UA YellowNOMS HealthcareGlucose, UANegativeNegative - 1999(110) ++++ mg/dLNOMS HealthcareInterpretation and review of laboratory resultsAbnormalNOMS Healthcare Ketones, UANegativeNegative - 160(16) ++++ mg/dLNOMS HealthcareLeukocytes, UA NegativeNegative - 500+++ Anitra/mcLNORI HealthcareNitrite, UANegativeNegative - PositiveNOMS HealthcarepH, UA65 - 9NORI HealthcareProtein, UAPositiveNegative - 2000(20) ++++ mg/dLUTAH VALLEY [facility]ITAL HealthcareSpec Grav, UA1.031 - 1.03NOMetropolitan Saint [facility] Psychiatric Center Urobilinogen, UA1.00.2 - 12 mg/dLSaint Joseph Hospital of Kirkwood HealthcareALL CBC WITH AUTO DIFFon 14-16-6533GJSQCRIHK ABSOLUTE VATR4CZFJMetropolitan Saint Louis Psychiatric CenterBasophils/100 WBC (Bld) 0.2 %0.2 - 2.0 %[facility] CenterEosinophils/100 WBC (Bld)0.6 %Low0.9 - 7.0 %[facility] Medical CenterErythrocyte distribution width (RBC) [Ratio]12.4 %11.0 - 15.0 %[facility] Medical CenterHematocrit (Bld) [Volume fraction]36.9 %36.0 - 48.0 %[facility] Hemoglobin (Bld) [Mass/Vol]13 g/dL12.0 - 16.0 g/dLResearch Medical CenterIMMATURE GRANULOCYTES ABS AUTO0.05HighResearch Medical CenterImmature granulocytes/100 WBC (Bld) 0.5 %0.0 - 0.5 %[facility] CenterInterpretation and review of laboratory results AbnormalNOMetropolitan Saint Louis Psychiatric CenterLYMPHOCYTES ABSOLUTE AUTO2.2NOMS [facility] Lymphocytes/100 WBC (Bld)20.4 %Low20.5 - 60.0 %[facility] HospitalH (RBC) [Entitic mass]30.7 pg26.7 - 34.0 pgColumbia Regional HospitalHC (RBC) [Mass/Vol]35.2 g/dL29.9 - 35.2 g/dLColumbia Regional HospitalV (RBC) [Entitic vol]87.2 fL81.0 - 99.0 fLResearch Medical CenterMONOCYTES ABSOLUTE AUTO0.7NOMetropolitan Saint Louis Psychiatric CenterMonocytes/100 WBC (Bld)6.1 % 1.7 - 12.0 %[facility] CenterNEUTROPHILS ABSOLUTE AUTO7.8HighNOMetropolitan Saint Louis Psychiatric Center Neutrophils/100 WBC (Bld)72.2 %43.0 - 75.0 %[facility] Medical CenterPlatelet mean volume (Bld) [Entitic vol]8.6 fLLow9.5 - 13.5 fLNOJefferson Memorial Hospital EO #0.1NOMS [facility] [id number] Memorial Hospital RBC4.23NOJefferson Memorial Hospital WBC10.7NOMetropolitan Saint Louis Psychiatric CenterCLINISYNCNJohn J. Pershing VA Medical CenterHCG ( test) Ql (U)on 11-15-2024 Interpretation and review of laboratory resultsAbnormalNOMetropolitan Saint Louis Psychiatric CenterPreg Test, UrPositiveNegativeNOKindred Hospital HealthcareUS OB TRANSVAGINALon 11-15-2024 US OB TRANSVAGINALFINDINGS: A single intrauterine gestational sac is present. No subchorionic hemorrhage. A single pole is present. Normal heart rate at 118 beats per minute. Yolk sac also is seen. Current sonographic age is 6 weeks and 6 days based on the crown-rump length measurement of 7 mm (6 weeks and 4 days)and gestational sac measurement of 2.4 cm (7 [...] 05, 2025. TRANSCRIBED BY: ELECTRONICALLY SIGNED BY: Isaias McfarlandNot AvailableComment on above:Order Comment: US OB TRANSVAGINAL No LMP recorded.US Pelvis transvaginalon 46-32-8530Kyytzoxz consistent with a live intrauterine gestation, current sonographic age of 6 weeks and 6 days resulting in an estimated date of delivery of July 05, 2025. TRANSCRIBED BY: ELECTRONICALLY SIGNED BY: RACHELE Mcfarland FINDINGS: A single intrauterine gestational sac is present. No subchorionic hemorrhage. A single pole is present. Normal heart rate at 118 beats per minute. Yolk sac also is seen. Current sonographic age is 6 weeks and 6 days based on the crown-rump length measurement of 7 mm (6 weeks and 4 days)and gestational sac measurement of 2.4 cm (7 weeks and 0 days). Based on this age, current estimated date of delivery is July 05, 2025. No pelvic fluid or adnexal mass present. Cervix is closed. IMAGINGSpZach lopez MD - 11/15/2024 FINDINGS: A single intrauterine gestational sac is present. No subchorionic hemorrhage. A single pole is present. Normal heart rate at 118 beats per minute. Yolk sac also is seen. Current sonographic age is 6 weeks and 6 days based on the crown-rump length measurement of 7 mm (6 weeks and 4 days)and gestational sac measurement of 2.4 cm (7 [...] BY: ELECTRONICALLY SIGNED BY: Zach Rios MD [facility] HealthcareRadiology Study observation (narrative)[facility] HealthcareUS Pelvis transvaginalOrdered By: Zach Rios on 94-61-4989SIKJResearch Medical Center Work Phone: Urinalysis macro (dipstick) panel (U)on 11-15-2024 Bilirubin, UANegativeNegative - 4(70) +++ mg/dLNOMS HealthcareBlood, UANegative Negative - 50 Raul/mcLNOMS HealthcareClarity, UAClearNOMS HealthcareColor, UA YellowNOMS HealthcareGlucose, UANegativeNegative - 2000(110) ++++ mg/dLNOMS HealthcareInterpretation and review of laboratory resultsNormalNORI Healthcare Ketones, UANegativeNegative - 160(16) ++++ mg/dLNOMS HealthcareLeukocytes, UA NegativeNegative - 500+++ Anitra/mcLNOMS HealthcareNitrite, UANegativeNegative - PositiveNOMS HealthcarepH, UA65 - 9NOMS HealthcareProtein, UANegativeNegative - 2000(20) ++++ mg/dLNOMS HealthcareSpec Grav, UA1.0251 - 1.03N[facility] Urobilinogen, UA1.00.2 - 12 mg/dLNORI HealthcareNOMS HealthcareProgesteroneon 78-77-9422Joidjhvtthmc Lvl22.19 ng/mLInvalid Interpretation [facility] CenterComment on above:Result Comment: 'F NON FOLLICULAR = 0.10 - 0.60' 'LUTEAL = 3.00 - 17.5' 'MIDLUTEAL = 3.30 - 18.6' 'POST-MENOPAUSE = 0.10 - 0.40' '-FIRST TRIMESTER = 8.30 - 66.5' 'SECOND TRIMESTER = 18.9 - 66.1' 'THIRD TRIMESTER = 35.8 - 312.4' 'MALES = 0.14 - 2.06'Performed By: #### [id number] #### [facility] [address], [place] [address]OBY CBC WITH AUTO DIFFon 19-19-2308DYNEMXSNY ABSOLUTE WRKE8ZUGG HealthcareBasophils/100 WBC (Bld)0.2 %0.2 - 2.0 %[facility] Medical CenterEosinophils/100 WBC (Bld)0.1 %Low0.9 - 7.0 %[facility] Medical CenterErythrocyte distribution width (RBC) [Ratio]13.5 %11.0 - 15.0 %[facility] Medical CenterHematocrit (Bld) [Volume fraction]32.6 %Low36.0 - 48.0 %[facility] CenterHemoglobin (Bld) [Mass/Vol]11.1 g/dLLow12.0 - 16.0 g/dLResearch Medical CenterIMMATURE GRANULOCYTES ABS AUTO0.16HighNOMetropolitan Saint Louis Psychiatric Center Immature granulocytes/100 WBC (Bld)0.8 %High0.0 - 0.5 %[facility] Interpretation and review of laboratory resultsAbnormalResearch Medical Center LYMPHOCYTES ABSOLUTE AUTO1.9NOMetropolitan Saint Louis Psychiatric CenterLymphocytes/100 WBC (Bld)9.4 %Low20.5 - 60.0 %[facility] HospitalH (RBC) [Entitic mass]30.8 pg26.7 - 34.0 pgColumbia Regional HospitalHC (RBC) [Mass/Vol]34 g/dL29.9 - 35.2 g/dLColumbia Regional HospitalV (RBC) [Entitic vol]90.6 fL81.0 - 99.0 fLNOMetropolitan Saint Louis Psychiatric CenterMONOCYTES ABSOLUTE AUTO1.2High [facility] HealthcareMonocytes/100 WBC (Bld)6.1 %1.7 - 12.0 %[facility] NEUTROPHILS ABSOLUTE AUTO16.5HRogers Memorial Hospital - MilwaukeeNeutrophils/100 WBC (Bld)83.4 % High43.0 - 75.0 %[facility] HealthcarePlatelet mean volume (Bld) [Entitic vol]10.5 fL 9.5 - 13.5 fLEllis Fischel Cancer Center EO #0NOJefferson Memorial Hospital [id number] Memorial Hospital RBC3.6LowEllis Fischel Cancer Center WBC19.8HighHCA Midwest DivisionINISRegionalOne Health Center CBC WITH PLATELET NO DIFFERENTIALon 11-59-7140Fmiphghdlgk distribution width (RBC) [Ratio]13.2 %11.0 - 15.0 %[facility] Medical CenterHematocrit (Bld) [Volume fraction]37.6 %36.0 - 48.0 %[facility] Medical CenterHemoglobin (Bld) [Mass/Vol]12.8 g/dL 12.0 - 16.0 g/dLResearch Medical CenterInterpretation and review of laboratory results AbnormalShriners Hospitals for Children (RBC) [Entitic mass]30.3 pg26.7 - 34.0 pgColumbia Regional HospitalHC (RBC) [Mass/Vol]34 g/dL29.9 - 35.2 g/dLColumbia Regional HospitalV (RBC) [Entitic vol]89.1 fL81.0 - 99.0 fLResearch Medical CenterPlatelet mean volume (Bld) [Entitic vol]9.9 fL9.5 - 13.5 fLEllis Fischel Cancer Center [id number] Memorial Hospital RBC 4.22NOJefferson Memorial Hospital WBC11.7HCarolinas ContinueCARE Hospital at [facility] DRUG SCREEN RAPID (URINE)on 18-63-7235MPOEGHZJSBU SCREEN URINENegativeNEGATIVE Research Medical CenterBARBITURATES SCREEN URINENegativeNEGATIVEResearch Medical Center BENZODIAZEPINES SCREEN URINENegativeNEGATIVEResearch Medical CenterBUPRENORPHINE SCREEN URINENegativeNEGATIVEResearch Medical CenterComment on above:DRUG CLASS TEST SYSTEM CUT- OFF CONCENTRATIONS ARE FOLLOWS: AMP (Amphetamine): 500 ng/mL BAR (Barbiturates): 200 ng/mL BZO (Benzodiazepines): 150 ng/mL BUP (Buprenorphine): 10 ng/mL OZZIE (Cocaine): 150 ng/mL mAMP (Methamphetamine): 500 ng/mL MTD (Methadone): 200 ng/mL OPI (Opiates): 100 ng/mL OXY (Oxycodone): 100 ng/mL PCP (Phencyclidine): 25 ng/mL THC (Cannabinoids): 50 ng/mL TCA (Trycyclic Antidepressants): 300 ng/mL CANNABINOID SCREEN URINENegativeNEGATIVENOMS HealthcareCOCAINE SCREEN URINE NegativeNEGATIVENOMS HealthcareMETHADONE SCREEN URINENegativeNEGATIVENOMS HealthcareMETHAMPHETAMINES SCREEN URINENegativeNEGATIVENOMS HealthcareOPIATE SCREEN URINENegativeNEGATIVENOMS HealthcareOXYCODONE SCREEN URINENegative NEGATIVENOMS HealthcarePHENCYCLIDINE SCREEN URINENegativeNEGATIVENOMS Healthcare TRICYCLIC ANTIDEPRESSANT URINENegativeNEGATIVENOMS HealthcareCLINISYNCNOMS HealthcareUS OB FOLLOW UP TRANSABDOMINAL APPROACHon 63-01-9297QF OB FOLLOW UP TRANSABDOMINAL APPROACHTITLE OF EXAM: OB Ultrasound: REASON FOR EXAM: LGA COMPARISON: None TECHNIQUE: Grayscale and M-mode Doppler imaging is performed. FINDINGS: heart rate: 161 bpm ZANDRA: 9.1 cm (7.3-23.5) BPD: 9.0 cm HC: 34.6 cm AC: 33.7 cm FL: 7.3 cm GA for sonogram: 37.7 wk (35.4-40.0) [place] MIKE: 04/28/2024 Weight Estimate: Weight: 3287 gm / 7 lbs, 3 oz (6003-0108 gm) [place] Normal: 3293 gm (9800-8753 gm) [place] Wt%: 49% for 38.3 wks Limited for: Growth Presentation: Cephalic Lie: Longitudinal Amniotic Fluid: 10.4 cm Between 5th and 95 percentile. Largest Fluid Pocket: 3.7 cm Heart Rate: 161 bpm Somatic motion: Yes IMPRESSION: Single live intrauterine gestation in cephalic position estimated at 37.7 weeks. This is concordantwith the provided clinical dates. Dictated and transcribed 04/17/24/dpd This report has been electronically signed and approved by the interpreting radiologist.NormalNot AvailableComment on above:Order Comment: US OB SCAN FOR GROWTH Estimated Date of Delivery: 04/28/24 Gestational Age as of 04/11/2024: 35y5sShvuidtnvb macro (dipstick) panel (U)on 28-[birth year]-1925Twjoztsth, UANegativeNegative - 4(70) +++ mg/dLNOMS HealthcareBlood, UANegativeNegative - 50 Raul/mcLNORI HealthcareClarity, UAClearNOMS Healthcare Color, UAYellowNOMS HealthcareGlucose, UANegativeNegative - 2000(110) ++++ mg/dL [facility] CenterInterpretation and review of laboratory resultsNormalNOMS HealthcareKetones, UANegativeNegative - 160(16) ++++ mg/dL[facility] Healthcare Leukocytes, UANegativeNegative - 500+++ Anitra/mcLNORI HealthcareNitrite, UA NegativeNegative - PositiveNOMS HealthcarepH, UA65 - 9NOMS HealthcareProtein, UA NegativeNegative - 2000(20) ++++ mg/dLUTAH VALLEY HOSPITAL HealthcareSpec Grav, UA1.0251 - 1.03 NOM HealthcareUrobilinogen, UA0.20.2 - 12 mg/dLNORI HealthcareUTAH VALLEY HOSPITAL Healthcare ALL MISCELLANEOUS TESTon [id number] TESTCOMMENT.[facility] Comment on above:Test Ordered: [id number] Strep Gp B Culture+Rflx Strep Gp B Culture+Rflx Negative CB Reference Range: Negative Centers for Disease Control and Prevention (CDC) and [place] Congress of Obstetricians and Gynecologists (ACOG) guidelines [...] resistance to clindamycin is noted. Performed at: [facility] [id number] [employer]: Quintin Rosen PhD, Phone: [phone] GROUP B STREP [id number] Group B Streptococcus Colonization Detection Culture With Re CLINISYNorth Knoxville Medical CenterUrinalysis macro (dipstick) panel (U)on 04-03-2024 Bilirubin, UANegativeNegative - 4(70) +++ mg/dLNOMS HealthcareBlood, UANegative Negative - 50 Raul/mcLNOMS HealthcareClarity, UAClearNOMS HealthcareColor, UA YellowNOMS HealthcareGlucose, UANegativeNegative - 1999(110) ++++ mg/dLNOMS HealthcareInterpretation and review of laboratory resultsAbnoAultman Alliance Community Hospital Healthcare Ketones, UAPositiveNegative - 160(16) ++++ mg/dLNOMS HealthcareLeukocytes, UA NegativeNegative - 500+++ Anitra/mcLNOMS HealthcareNitrite, UANegativeNegative - PositiveNOMS HealthcarepH, UA5.55 - 9NOMS HealthcareProtein, UATraceNegative - 1999(20) ++++ mg/dLNOMS HealthcareSpec Grav, UA1.031 - 1.03NOMS Healthcare Urobilinogen, UA0.20.2 - 12 mg/dLNOMS HealthcareNOMS HealthcareUrinalysis macro (dipstick) panel (U)on 09-95-5722Pqmsednrt, UANegativeNegative - 4(70) +++ mg/dL NOMS HealthcareBlood, UANegativeNegative - 50 Raul/mcLNOMS HealthcareClarity, UA ClearNOMS HealthcareColor, UAYellowNOMS HealthcareGlucose, UANegativeNegative - 1999(110) ++++ mg/dLNOMS HealthcareInterpretation and review of laboratory resultsAbnoAultman Alliance Community Hospital HealthcareKetones, UAPositiveNegative - 160(16) ++++ mg/dL NOMS HealthcareLeukocytes, UANegativeNegative - 500+++ Anitra/[facility] Healthcare Nitrite, UANegativeNegative - PositiveNOMS HealthcarepH, UA5.55 - 9NOMS HealthcareProtein, UANegativeNegative - 1999(20) ++++ mg/dLNOMS HealthcareSpec Grav, UA1.031 - 1.03NORI HealthcareUrobilinogen, UA0.20.2 - 12 mg/dLNOMS HealthcareNOMS HealthcareTBH UA (CLEAN/CATCH) LIVESTOCK HAULIER/MICRO IF IND.on 03-23-2024 BILIRUBIN URINENegativeNEGATIVENOMS HealthcareBLOOD URINENegativeNEGATIVENOMS HealthcareClarity (U)SL CLOUDYCLEARNOMS HealthcareColor (U)LT. YELLOWYELLOWNOMS HealthcareGLUCOSE URINE UANegativeNEGATIVE mg/dLNOMS HealthcareKetones Ql (U) NegativeNEGATIVE mg/dLNOMS HealthcareLeukocyte esterase Test strip Ql (U) NegativeNEGATIVENOMS HealthcareNITRITE URINENegativeNEGATIVENOMS HealthcarepH (U)6.0 [pH]5.0 - 9.0NOMS HealthcarePROTEIN URINENegativeNEG/TRACE mg/dLNOMS HealthcareSPECIFIC GRAVITY URINE1.0251.005 - 1.025NOMS HealthcareURINE MICROSCOPIC INDICATEDNONOMS HealthcareUROBILINOGEN URINE0.2 EU/dL0.2 - 1.0 EU/dL NOMS HealthcareCLINISYNCNOMS HealthcareUrinalysis macro (dipstick) panel (U)on 93-13-8719Hnkadkgsv, UANegativeNegative - 4(70) +++ mg/dLNOMS HealthcareBlood, UANot detectedNegative - 50 Raul/mcLNOMS HealthcareClarity, UAClearNOMS HealthcareColor, UAYellowNOMS HealthcareGlucose, UANegativeNegative - 1999(110) ++++ mg/dLNORI HealthcareInterpretation and review of laboratory resultsAbnormal NOMS HealthcareKetones, UANegativeNegative - 160(16) ++++ mg/dLNORI Healthcare Leukocytes, UANegativeNegative - 500+++ Anitra/mcLNOMS HealthcareNitrite, UA NegativeNegative - PositiveNOMS HealthcarepH, UA65 - 9NORI HealthcareProtein, UA TraceNegative - 2000(20) ++++ mg/dLNORI HealthcareSpec Grav, UA1.031 - 1.03NORI HealthcareUrobilinogen, UA0.20.2 - 12 mg/dLNOMS HealthcareNORI Healthcare Urinalysis macro (dipstick) panel (U)on 09-88-7793Zfpvfqwig, UANegativeNegative - 4(70) +++ mg/dLNOMS HealthcareBlood, UANegativeNegative - 50 Raul/mcLNOMS HealthcareClarity, UAClearNOMS HealthcareColor, UAYellowNOMS HealthcareGlucose, UANegativeNegative - 2000(110) ++++ mg/dLNOMS HealthcareInterpretation and review of laboratory resultsAbnormalNOMS HealthcareKetones, UAPositiveNegative - 160(16) ++++ mg/dLNORI HealthcareComment on above:traceLeukocytes, UANegative Negative - 500+++ Anitra/mcLNORI HealthcareNitrite, UANegativeNegative - Positive NOMS HealthcarepH, UA65 - 9NOMS HealthcareProtein, UANegativeNegative - 2000(20) ++++ mg/dLNORI HealthcareSpec Grav, UA1.031 - 1.03NORI HealthcareUrobilinogen, UA0.20.2 - 12 mg/dLNORI HealthcareNORI HealthcareGLUCOSE TOLERANCE 3 HOURon 20-17-2509RSOFGBM TOLERANCE 3 HOURmg/dLNORI HealthcareComment on above:GLU FAST 88 (<95) Col: 02/01/24 1310 GLU 1HR 177 (<180) Col: 02/01/24 1412 GLU 2HR 131 (<155) Col: 02/01/24 1512 GLU 3HR 106 (<140) Col: 02/01/24 1612 CLINISYNCNORI HealthcareALL CBC WITH AUTO DIFFon 22-30-4651HJEGZUDIU ABSOLUTE TXEL3BRHF HealthcareBasophils/100 WBC (Bld)0.2 %0.2 - 2.0 %NOM Healthcare Eosinophils/100 WBC (Bld)0.8 %Low0.9 - 7.0 %[facility] HealthcareErythrocyte distribution width (RBC) [Ratio]12.4 %11.0 - 15.0 %NOM HealthcareHematocrit (Bld) [Volume fraction]34.2 %Low36.0 - 48.0 %[facility] Medical CenterHemoglobin (Bld) [Mass/Vol]11.7 g/dLLow12.0 - 16.0 g/dLNOMetropolitan Saint Louis Psychiatric CenterIMMATURE GRANULOCYTES ABS AUTO0.2HighNORI HealthcareImmature granulocytes/100 WBC (Bld)1.5 %High0.0 - 0.5 %[facility] HealthcareLYMPHOCYTES ABSOLUTE AUTO2.7NOMS HealthcareLymphocytes/100 WBC (Bld)20.2 %Low20.5 - 60.0 %[facility] Medical CenterMCH (RBC) [Entitic mass]31.4 pg26.7 - 34.[address] pgNOMosaic Life Care at [address]. JosephHC (RBC) [Mass/Vol]34.2 g/dL29.9 - 35.2 g/dLResearch Medical CenterMCV (RBC) [Entitic vol]91.7 fL81.0 - 99.0 fLNORI HealthcareMONOCYTES ABSOLUTE AUTO0.8NORI HealthcareMonocytes/100 WBC (Bld)6.2 %1.7 - 12.0 %[facility] HealthcareNEUTROPHILS ABSOLUTE AUTO9.4HighNORI HealthcareNeutrophils/100 WBC (Bld)71.1 %43.0 - 75.0 %[facility] HealthcarePlatelet mean volume (Bld) [Entitic vol]9 fLLow9.5 - 13.5 fLResearch Medical CenterTBH EO #0.1NOMS HealthcareTBH KVZ735EMOPMetropolitan Saint Louis Psychiatric CenterTB RBC3.73LowNOMetropolitan Saint Louis Psychiatric CenterTB WBC13.2HighResearch Medical CenterGLUCOSE 1 HOURon 96-00-2096Tklkomc [Mass/Vol]140 mg/dLHighNINF - 130 mg/dL[facility] No Panel Informationon 86-11-5042Llojdbccgmhqld and review of laboratory results AbnormalNOMetropolitan Saint Louis Psychiatric CenterCLINISYNCNJohn J. Pershing VA Medical CenterUrinalysis macro (dipstick) panel (U)on 06-42-5274Kdknsnzil, UANegativeNegative - 4(70) +++ mg/dL[facility] Blood, UANegativeNegative - 50 Raul/mcLUTAH VALLEY [facility]PITAL HealthcareClarity, UAClearNORI HealthcareColor, UAYellowResearch Medical CenterGlucose, UANegativeNegative - 2000(110) ++++ mg/dLResearch Medical CenterInterpretation and review of laboratory resultsNormal [facility] HealthcareKetones, UANegativeNegative - 160(16) ++++ mg/dL[facility] Leukocytes, UANegativeNegative - 500+++ Anitra/mcLResearch Medical CenterNitrite, UA NegativeNegative - PositiveNORI HealthcarepH, UA555 - 9NORI HealthcareProtein, UANegativeNegative - 2000(20) ++++ mg/dLUT[facility] VALLEY [facility] HealthcareSpec Grav, UA1.021 - 1.03 [facility] Medical CenterUrobilinogen, UA1.00.2 - 12 mg/dLWakeMed Cary Hospital Urinalysis macro (dipstick) panel (U)on 23-74-8511Oyansgmdw, UANegativeNegative - 4(70) +++ mg/dLNOMS HealthcareBlood, UANegativeNegative - 50 Raul/mcLNOMS HealthcareClarity, UAClearNOMS HealthcareColor, UAYellowNOMS HealthcareGlucose, UANegativeNegative - 1999(110) ++++ mg/dLNOMS HealthcareInterpretation and review of laboratory resultsNormalNOMS HealthcareKetones, UANegativeNegative - 160(16) ++++ mg/dLNOMS HealthcareLeukocytes, UANegativeNegative - 500+++ Anitra/mcL NOMS HealthcareNitrite, UANegativeNegative - PositiveNOMS HealthcarepH, UA5.55 - 9NOMS HealthcareProtein, UANegativeNegative - 2000(20) ++++ mg/dLNOMS HealthcareSpec Grav, UA1.0251 - 1.03NOMS HealthcareUrobilinogen, UA0.20.2 - 12 mg/dLNOMS HealthcareNOMS HealthcareNo Panel InformationOrdered By: Christopher Ma on 13-86-9258Xzwse Strep (POC)[facility] Medical CenterIGP,APTIMA HPV,AGE GDLNon 83-97-8901THY GDLN ACOG TESTINGNote.[facility] HealthcareComment on above:TESTS RESULT FLAG UNITS REF RANGE LAB Clinician Provided Cytology Information Source.............Cervix No. of containers..01 ThinPrep Vial Age Algo ACOG Radha... FLAG LEGEND: L-Low Normal,H-High Normal,LL-Alert Low,HH-Alert High <-Panic Low,>-Panic High,A-Abnormal,AA-Critical Abnormal Performed at: 01 =G [facility] [address] [place] [address] Luz Marina Swann MD, IGP, RFX APTIMA HPV ASCUNote.NOMS HealthcareComment on above:TESTS RESULT FLAG UNITS REF RANGE LAB DIAGNOSIS: 02 NEGATIVE FOR INTRAEPITHELIAL LESION OR MALIGNANCY. Specimen adequacy: 02 Satisfactory for evaluation. No endocervical component is identified. Performed by: 02 Juvenal Paige Plant Chief ([facility]) . 02 Note: Note 02 The Pap [...] High,A-Abnormal,AA-Critical Abnormal Performed at: 02 WB [facility] [address] [place] [id number] Luz Marina Swann MD, Performed at: = - [facility] [id number] [employer]: Luz Marina Swann MD, Phone: [phone] Performed at: [address] [id number] [employer]: Luz Marina Swann MD, Phone: [phone] SPATULA-ALONE CERVIX CLINISYNCNOMS HealthcareURETHRITIS/DISCHARGE PLUS VAGINITIS (HTRX)on 11-19-2023 ATOPOBIUM FTGTIFS33.582AbnormalNOMS HealthcareATOPOBIUM VAGINAEDetectedAbnormal NOMS HealthcareBVAB 2,3 (BACTERIAL VAGINOSIS ASSOCIATED BACTERIA 2, 3); MOBILUNCUS SPP22.805AbnormalNOMS HealthcareBVAB 2,3 (BACTERIAL VAGINOSIS ASSOCIATED BACTERIA 2, 3); MOBILUNCUS SPPDetectedAbnormalNOMS HealthcareCANDIDA ALBICANS, PARAPSILOSIS, TROPICALIS0.000NOMS HealthcareCANDIDA ALBICANS, PARAPSILOSIS, TROPICALISNot detectedNOMS HealthcareCANDIDA GLABRATA0.000NOMS HealthcareCANDIDA GLABRATANot detectedNOMS HealthcareCANDIDA KRUSEI0.000NOMS HealthcareCANDIDA KRUSEINot detectedNOMS HealthcareCHLAMYDIA TRACHOMATIS0.000 NOMS HealthcareCHLAMYDIA TRACHOMATISNot detectedNOMS HealthcareERMB, C; MEFA 25.492AbnormalNOMS HealthcareERMB, C; MEFADetectedAbnormalNOMS Healthcare GARDNERELLA XWETLBNQT47.081AbnormalNOMS HealthcareGARDNERELLA VAGINALISDetected AbnormalNOMS HealthcareInterpretation and review of laboratory resultsAbnormal NOMS HealthcareMEGASPHAERA (TYPES 1, 2)0.000NOMS HealthcareMEGASPHAERA (TYPES 1, 2)Not detectedNOMS HealthcareMYCOPLASMA GENITALIUM0.000[facility] Healthcare MYCOPLASMA GENITALIUMNot detectedNOMS HealthcareNEISSERIA GONORRHOEAE0.000NOMS HealthcareNEISSERIA GONORRHOEAENot detectedNOMS HealthcareTET B, TET M23.652 AbnormalNOMS HealthcareTET B, TET MDetectedAbnormalNOMS HealthcareTRICHOMONAS VAGINALIS0.000NOMS HealthcareTRICHOMONAS VAGINALISNot detectedNORI Healthcare NOMS HealthcareUrinalysis macro (dipstick) panel (U)on 36-16-5758Ljgmvwica, UA PositiveNegative - 4(70) +++ mg/dLNORI HealthcareComment on above:smallBlood, UA NegativeNegative - 50 Raul/mcLNORI HealthcareClarity, UAClearNOMS Healthcare Color, UAYellowNORI HealthcareGlucose, UANegativeNegative - 2000(110) ++++ mg/dL [facility] HealthcareInterpretation and review of laboratory resultsNormalUTAH VALLEY [facility]PITAL HealthcareKetones, UAPositiveNegative - 160(16) ++++ mg/dLUT[facility] VALLEY [facility]OSPITAL HealthcareComment on above:traceLeukocytes, UANegativeNegative - 500+++ Anitra/mcLUT[facility] VALLEY [facility]OSPITAL Healthcare Nitrite, UANegativeNegative - PositiveNOMS HealthcarepH, UA5.55 - 9NORI HealthcareProtein, UANegativeNegative - 2000(20) ++++ mg/dLUT[facility] VALLEY HOSPITAL HealthcareSpec Grav, UA1.0301 - 1.03NORI HealthcareUrobilinogen, UA1.00.2 - 12 mg/dLNORI HealthcareNORI HealthcareBMPon 96-98-8099Dvpkc gap [Moles/Vol]13 mmol/LNormal 6-16Day[facility] HospitalComment on above:Performed By: #### [id number] #### [facility] [address], [place] [address]Fsrpuij [Mass/Vol]8.9 mg/dLNormal8.9-11.1FMarietta Osteopathic ClinicComment on above:Performed By: #### [id number] #### [facility] [address], [place] [address]Wnblggmd [Moles/Vol]103 mmol/ZVnzucj910-419CltvdpDayton Osteopathic HospitalComment on above:Performed By: #### [id number] #### [facility] [address], [place] [address]EO6 [Moles/Vol]21 mmol/EAzgcze72-38WmohomDayton Osteopathic Hospital Comment on above:Performed By: #### [id number] #### [facility] [address], [place] [address]Jzflxlzmkw [Mass/Vol]0.6 mg/dLNormal0.5-1.3Fisher [facility] Hopkins HospitalComment on above:Performed By: #### [id number] #### [facility] [address], [place] [address]Qzfisyt [Mass/Vol]89 mg/zTAgqhni05-257YtznaxDayton Osteopathic HospitalComment on above:Performed By: #### [id number] #### [facility] [address], [place] [address]Janulnuqa [Moles/Vol]3.5 mmol/LNormal3.5-5.3[facility] Hopkins HospitalComment on above:Performed By: #### [id number] #### [facility] [address] [place] [address]Cemxsk [Moles/Vol]133 mmol/GRwh060-012InldzeDayton Osteopathic HospitalComment on above:Performed By: #### [id number] #### [facility] [address], [place] [address]Hvwq nitrogen [Mass/Vol]5 mg/dLNormal5-21Day[facility]opathic HospitalComment on above:Performed By: #### [id number] #### [facility] [address], [place] [address]Qxcq nitrogen/Creatinine [Mass ratio]8 No GyjqhWli08-13CvmzbpDayton Osteopathic HospitalComment on above:Performed By: #### [id number] #### [facility] [address], [place] [address]AXN w/ Auto Diffon 16-53-6514Yvvhjitsu/100 WBC (Bld)0.2 %Normal 0.0-2.0[facility]opathic HospitalComment on above:Performed By: #### [id number] #### [facility] [address], [place] [address]Hmldrksxq/Leukocytes Auto (Bld) [Pure # fraction]0.0 E9/LNormal 0.0-0.2FMarietta Osteopathic ClinicComment on above:Performed By: #### [id number] #### [facility] [address] [place] [address]Qmzzrjjlojd (Bld) [#/Vol]0.1 E9/LNormal0.0-0.5FMarietta Osteopathic ClinicComment on above:Performed By: #### [id number] #### [facility] [address] [place] [address]Kstlupiejmw/100 WBC (Bld)0.7 %Normal0.0-8.0[facility] HospitalComment on above:Performed By: #### [id number] #### [facility] [address] [place] [address]Oafzentjwqj distribution width (RBC) [Ratio]13.1 %Normal 10.9-14.2FMarietta Osteopathic ClinicComment on above:Performed By: #### [id number] #### [facility] [address] [place] [address]Ifagbknhwh (Bld) [Volume fraction]39.9 %Vgikkj57.0-46.0[facility] HospitalComment on above:Performed By: #### [id number] #### [facility] [address] [place] [address]Eklbvibhxe (Bld) [Mass/Vol]14.0 g/pDZfqycc27.0-16.0[facility] HospitalComment on above:Performed By: #### [id number] #### [facility] [address] [place] [address]Tqwdhvfiste (Bld) [#/Vol]1.8 E9/LNormal1.0-4.0[facility] HospitalComment on above:Performed By: #### [id number] #### [facility] [address] [place] [address]Rojzpilalza/100 WBC (Bld)18.5 %Tizchy66.0-50.0[facility] HospitalComment on above:Performed By: #### [id number] #### [facility] [address] [place] [address]KSI (RBC) [Entitic mass]31.9 asBwezyp62.0-34.0[facility] HospitalComment on above:Performed By: #### [id number] #### [facility] [address] [place] [address]GPYR (RBC) [Mass/Vol]35.2 g/iGBucoxs78.4-36.0[facility] HospitalComment on above:Performed By: #### [id number] #### [facility] [address] [place] [address]EXA (RBC) [Entitic vol]90.5 rBUfqdny05.0-100.0[facility] HospitalComment on above:Performed By: #### [id number] #### [facility] [address] [place] [address]Glemawrii (Bld) [#/Vol]0.5 E9/LNormal0.2-1.0[facility] HospitalComment on above:Performed By: #### [id number] #### [facility] [address] [place] [address]Blcesqtrzrt (Bld) [#/Vol]7.3 E9/LNormal2.0-7.5FMarietta Osteopathic ClinicComment on above:Performed By: #### [id number] #### [facility] [address] [place] [address]Xdzrmyzwvvx/100 WBC (Bld)75.5 %High36.0-75.0[facility] HospitalComment on above:Performed By: #### [id number] #### [facility] [address] [place] [address]Lrjdmakf651.0 E9/ICecwuy800.0-500.0[facility] Comment on above:Performed By: #### [id number] #### [facility] [address] [place] [address]Kusdeqfv mean volume (Bld) [Entitic vol]6.6 fLNormal6.4-10.8 [facility] HospitalComment on above:Performed By: #### [id number] #### [facility] [address], [place] [address]NAO (Bld) [#/Vol]4.4 E12/LNormal4.3-5.9[facility] HospitalComment on above:Performed By: #### [id number] #### [facility] [address], [place] [address]PCU corrected for nucl RBC Auto (Bld) [#/Vol]9.7 E9/LNormal 4.0-11.0[facility]opathic HospitalComment on above:Performed By: #### [id number] #### [facility] [address], [place] [address]EFCOHXYIUNmmpfar By: SYSTEM SYSTEM on 22-83-1943Ifoxyej [Mass/Vol]4.2 g/dLNormal3.3 - 5.0 gm/dLRemisol ChemAlbumin/Globulin [Mass ratio] 1.3 {ratio}Normal1.1 - 2.2Remisol ChemALP [Catalytic activity/Vol]68 [iU]/d Qcrybr95 - 98 Int._Unit/LRemisol ChemALT No additional P-5'-P [Catalytic activity/Vol]18 [iU]/dNormal6 - 46 Int._Unit/LRemisol ChemAnion gap [Moles/Vol] 13 mmol/LNormal6 - 16 mEq/LRemisol ChemAST [Catalytic activity/Vol]17 [iU]/d Normal5 - 43 Int._Unit/LRemisol ChemBilirubin [Mass/Vol]0.5 mg/dLNormal0.0 - 1.1 mg/dLRemisol ChemBilirubin.direct [Mass/Vol]0.1 mg/dLNormal0.0 - 0.4 mg/dL Remisol ChemBilirubin.indirect [Mass or moles/Vol]0.4 mg/dLNormal0.1 - 0.9 mg/dL Remisol ChemCalcium [Mass/Vol]8.9 mg/dLNormal8.9 - 11.1 mg/dLRemisol Chem Chloride [Moles/Vol]103 mmol/NMxaotz366 - 111 mmol/LRemisol ChemCO2 [Moles/Vol] 21 mmol/ETssxku87 - 31 mmol/LRemisol ChemCreatinine [Mass/Vol]0.6 mg/dLNormal0.5 - 1.3 mg/dLRemisol EbnxyBYW711 mL/min/1.73 t8Zcjvis>=59mL/min/1.73 x3Aouszyy ChemGlobulin (S) [Mass/Vol]3.2 g/dLNormal1.4 - 4.0 gm/dLRemisol ChemGlucose [Mass/Vol]89 mg/sIRkqfma07 - 199 mg/dLRemisol ChemLipase [Catalytic activity/Vol]30 U/FHkzvul86 - 58 unit/LRemisol ChemPotassium [Moles/Vol]3.5 mmol/LNormal3.5 - 5.3 mmol/LRemisol ChemProtein [Mass/Vol]7.4 g/dLNormal6.0 - 7.8 gm/dLRemisol ChemSodium [Moles/Vol]133 mmol/SXyz416 - 145 mmol/LRemisol Chem Urea nitrogen [Mass/Vol]5 mg/dLNormal5 - 21 mg/dLRemisol ChemUrea nitrogen/Creatinine [Mass ratio]8 mg/mgLow10 - 20Remisol ChemED Clinical Summary on [id number] Clinical SummaryED Clinical Summary [place] [address] ED Clinical Summary Person Information Name: SEBASTIAN ALEMAN [facility] Age: 22 Years : 2000 Sex: Female Language: Croatian PCP: NONE, XXXX Marital Status: Single Visit [...] 09/22/2023 07:17:18 09/22/2023 07:17:18 09/22/2023 07:17:18 ADDRESS: [address] [place] [phone] PHYS DOC NOTES: MEDICAL INFORMATION: Prescriptions Given: New Medications [facility]/pharmacy #[id number], [address], [place] [id number], [phone] cephalexin (Keflex 500 mg Cap) 1 Capsules [...] Follow up: With: Address: When: Bakari PROCTOR Count Includes [facility], [address] [place] [address] [place] [address] Business (1) In 3 days 09/25/2023 DIAGNOSIS: Asymptomatic bacteriuria during ; Bacteriuria; Nausea and vomiting during pregnancySridevi Pritchard Medical CenterED Note-Physicianon 09-22-2023 ED Note-PhysicianED Note-Physician Basic Information Time Seen: Rodrigo Berg [...] that she was prescribed Zofran by 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 She denies any feve r or chills. She denies abdominal pain or [...] and Complexity of Problems Differential Diagnosis: [] [facility] Data External documents reviewed: N/A My [...] course of oral Keflex and send the urinefor culture. On reevaluation the patient is feeling significantly improved after medications and fluids. She wasable to tolerate p.o. liquids here in the ED. We discussed plan of discharge with a short prescription for Phenergan as needed for breakthrough nausea as well as the oral Keflex. Will have her follow-up close with Dr. Proctor her established [employer] [facility] [facility]. Shared decision making: As above Code status: N/A Assessment/Plan Asymptomatic bacteriuria during (O99.891: Other specified diseases and conditions complicating ) Bacteriuria (R82.71: Bacteriuria) Nausea and vomiting during (O21.9: Vomiting of , unspecified) Orders: cephalexin, 500 mg = 1 cap(s), Oral, q12hr, X 5 day(s), # 10 cap(s), Refills(s) 0, Pharmacy: [facility]/pharmacy #[id number], 160, cm, 09/22/23 5:34:00 EDT, Height/Length Dosing, 72.4, kg, 09/22/23 5:34:00 EDT, Weight Dosing Lactated Ringers Injection, 1,000 mL, Soln-IV, IV, Once, Stop date 09/22/23 5:38:00 EDT, STAT, Start date 09/22/23 5:38:00 EDT, mL/hr, Infuse over 61, minute(s) promethazine, 12.5 mg = 1 tab(s), Oral, q8hr, PRN as needed for nausea/vomiting, # 12 tab(s), Refills(s) 0, Pharmacy: [facility]/pharmacy #[id number], 160, cm, 09/22/23 5:34:00 EDT, [...] Cult Rflx Urine Culture Medications Administered Given Kvucbz8092Rrve-LS [F], 1000 mL, IV Sodium Chloride 0.9% IV Kaylyn 50 mL [F] 50 mL + ipxplj77Cuzasylhx [F] 12.5 mg, IV Piggyback Disposition Plan Discharge Prescription List Prescriptions Keflex 500 mg Cap, 500 mg= 1 cap(s), Oral, q12hr promethazine 12.5 mg oral tablet, 12.5 mg= 1 tab(s), Oral, q8hr, PRN Follow-up With When Contact Information Bakari PROCTOR In 3 days 09/25/[address] , [place] [address] [facility] (1) Additional Instructions: Patient Education Morning Sickness Asymptomatic Bacteriuria Problem List/Past Medical History Ongoing Anxiety History of cold sores Right otitis media Historical Denies Depression Procedure/Surgical History None. Medications Inpatient LR 1000 mL Bolus, 1000 mL, IV, Once promethazine additive 12.5 mg + Sodium Chloride 0.9% IV Kaylyn 50 (more content not included)...[facility] HospitalComment on above:Result Comment: Electronically Signed By: Rodrigo Berg DO\.br\Date and Time Signed: 09/22/23 06:44 EDTED Patient Summaryon [id number] Patient SummaryED Patient Summary [address] [address] Patient Discharge Instructions Person Information Name: SEBASTIAN ALEMAN Age: 22 Years Arrival Date: 09/22/2023 05:24:18 Discharge Diagnosis: Asymptomatic bacteriuria during ; Bacteriuria; Nausea and vomiting during Primary Care Physician: NONE, XXXX Provider Information Primary Provider: Rodrigo Berg DO Advanced Manager Specialty:None The exam and treatment you received in the Emergency Department were for an urgent problem and are not intended as complete care. It is important that you follow up with a doctor, nurse practitioner,or physician?s photographer assistant for ongoing care. If your symptoms [...] Follow-up Instructions: With: Address: When: Bakari PROCTOR Count Includes [facility], [address] [place] [address] Apolinar [place] [address] Business (1) In 3 days 09/25/2023 In the event that this physician does not participate in your insurance network, please consult with your insurance company to find a nearby participating provider. Patient Education Materials: Morning Sickness; Asymptomatic Bacteriuria A MESSAGE TO ALL PATIENTS REGARDING OPIOIDS PRESCRIPTION OPIOIDS: WHAT YOU NEED TO KNOW Prescription opioids can be used to help relieve bnujhlbx-ft-wasgdz pain and are often prescribed following a [...] and have fewer risks and side effects. Optionsmay include: ? Pain relievers such as acetaminophen, [...] unused prescription opioids: Find your community drug take- back program or [employer] mail-back program, or flush them down the toilet, following guidance from the Food and Drug Administration (www.fda.gov/Drugs/ResourcesForYou). ? Visit www.cdc.gov/drugoverdose to learn about the risks of opioids abuse and overdose. ? If you believe you may be struggling with addiction, tell y (more content not included)...[facility] HospitalHEMATOLOGYOrdered By: SYSTEM SYSTEM on 74-97-6898Ogwouwuur/100 WBC (Bld)0.2 %Normal0.0 - 2.0 %Remisol Heme Basophils/Leukocytes Auto (Bld) [Pure # fraction]0.0 E9/LNormal0.0 - 0.2 E9/L Remisol HemeEosinophils (Bld) [#/Vol]0.1 E9/LNormal0.0 - 0.5 E9/LRemisol Heme Eosinophils/100 WBC (Bld)0.7 %Normal0.0 - 8.0 %Remisol HemeErythrocyte distribution width (RBC) [Ratio]13.1 %Qlbmzb89.9 - 14.2 %Remisol HemeHematocrit (Bld) [Volume fraction]39.9 %Crpwnp96.0 - 46.0 %Remisol HemeHemoglobin (Bld) [Mass/Vol]14.0 g/rJKvkxtg17.0 - 16.0 gm/dLRemisol HemeLymphocytes (Bld) [#/Vol] 1.8 E9/LNormal1.0 - 4.0 E9/LRemisol HemeLymphocytes/100 WBC (Bld)18.5 %Normal 14.0 - 50.0 %Remisol HemeMCH (RBC) [Entitic mass]31.9 tzAgfcqm54.0 - 34.0 pg Remisol HemeMCHC (RBC) [Mass/Vol]35.2 g/gJUxzggi71.4 - 36.0 gm/dLRemisol HemeMCV (RBC) [Entitic vol]90.5 pTViqxes19.0 - 100.0 fLRemisol HemeMonocytes (Bld) [#/Vol]0.5 E9/LNormal0.2 - 1.0 E9/LRemisol HemeMonocytes/100 WBC (Bld)5.1 % Normal4.0 - 14.0 %Remisol HemeNeutrophils (Bld) [#/Vol]7.3 E9/LNormal2.0 - 7.5 E9/LRemisol HemeNeutrophils/100 WBC (Bld)75.5 %High36.0 - 75.0 %Remisol Heme Qsbputor453.0 E9/IXrjxlp664.0 - 500.0 E9/LRemisol HemePlatelet mean volume (Bld) [Entitic vol]6.6 fLNormal6.4 - 10.8 fLRemisol HemeRBC (Bld) [#/Vol]4.4 E12/L Normal4.3 - 5.9 E12/LRemisol HemeWBC corrected for nucl RBC Auto (Bld) [#/Vol] 9.7 E9/LNormal4.0 - 11.0 E9/LRemisol HemeHep Func Panelon 10-63-5928Xhlglqf [Mass/Vol]4.2 g/dLNormal3.3-5.0[facility] HospitalComment on above: Performed By: #### [id number] #### [facility] [address], [place] [address]Irdmgan/Globulin (S) [Mass conc ratio]1.2Lpvphb4.1-2.2FMarietta Osteopathic ClinicComment on above:Performed By: #### [id number] #### [facility] [address] [place] [address]CME [Catalytic activity/Vol]68 Int._Unit/XHduwxj50-78VniokdDayton Osteopathic HospitalComment on above:Performed By: #### [id number] #### [facility] [address] [place] [address]PYD No additional P-5'-P [Catalytic activity/Vol]18 Int._Unit/L Normal6-46Day[facility]opathic HospitalComment on above:Performed By: #### [id number] #### [facility] [address] [place] [address] 900[address]FMW [Catalytic activity/Vol]17 Int._Unit/LNormal5-43[facility] HospitalComment on above:Performed By: #### [id number] #### [facility] [address] [place] [address]Tgxasgqai [Mass/Vol]0.5 mg/dLNormal0.0-1.1FMarietta Osteopathic ClinicComment on above:Performed By: #### [id number] #### [facility] [address] [place] [address]Bcoofapel.direct [Mass/Vol]0.1 mg/dLNormal0.0-0.4FMarietta Osteopathic ClinicComment on above:Performed By: #### [id number] #### [facility] [address] [place] [address]Pjwdrmfxa.indirect [Mass or moles/Vol]0.4 mg/dLNormal0.1-0.9 [facility] HospitalComment on above:Performed By: #### [id number] #### [facility] [address] [place] [address]Rqyymkth (S) [Mass/Vol]3.2 g/dLNormal1.4-4.0[facility] HospitalComment on above:Performed By: #### [id number] #### [facility] [address], [place] [address]Bmskqsp [Mass/Vol]7.4 g/dLNormal6.0-7.8[facility] HospitalComment on above:Performed By: #### [id number] #### [facility] [address], [place] [address]Nkduyl Levelon 17-57-5274Tzjmus [Catalytic activity/Vol]30 U/L Slhpvk49-41FycbxsDayton Osteopathic HospitalComment on above:Performed By: #### [id number] #### [facility] [address], [place] [address]LQ with Cult Rflxon 91-17-6979Wcbfaygb Auto Ql (U)2+ /HPF AbnormalTraceDayton Osteopathic HospitalComment on above:Performed By: #### [id number] #### [facility] [address], [place] [address]Olievvucx Ql (U)NegativeNormalNegativeDayton Osteopathic HospitalComment on above:Performed By: #### [id number] #### [facility] [address], [place] [address]Lnzmcbi (U)Ex.TurbidAbnormalCleAvita Health System Ontario Hospital Comment on above:Performed By: #### [id number] #### [facility] [address], [place] [address]Bpkkf (U)YellowNormalYellowDayton Osteopathic HospitalComment on above:Result Comment: Microscopic readings are only performed on those samples that meet specific criteria set forth by [facility].Performed By: #### [id number] #### [facility] [address], [place] [address]Gvcmsguaiq cells.squamous Auto (Urine sed) [#/Area]>10Invalid Interpretation CodeDayton Osteopathic HospitalComment on above:Performed By: #### [id number] #### [facility] [address], [place] [address]Diwscza Ql (U)NegativeNormalNegCincinnati Shriners Hospital Comment on above:Performed By: #### [id number] #### [facility] [address], [place] [address]Bfccrgsdpm Auto test strip (U) [Mass/Vol]NegativeNormalNegative [facility] HospitalComment on above:Performed By: #### [id number] #### [facility] [address], [place] [address]Xttwnha Auto test strip Ql (U)4+ mg/dLAbnormalNegativeDayton Osteopathic HospitalComment on above:Performed By: #### [id number] #### [facility] [address], [place] [address]Hfnfbautk esterase Auto test strip Ql (U)250 Anitra/uLAbnormal [facility] Cleveland WestComment on above:Performed By: #### [id number] #### [facility] [address], [place] [address]Ywqfw Auto Ql (U)3+AbnormalNegCincinnati Shriners Hospital Comment on above:Performed By: #### [id number] #### [facility] [address], [place] [address]Vbuspnf Auto test strip Ql (U)NegativeNormalNegCincinnati Shriners HospitalComment on above:Performed By: #### [id number] #### [facility] [address], [place] [address]wK (U)6.0 [pH]Invalid Interpretation Code5.0-9.0[facility] HospitalComment on above:Performed By: #### [id number] #### [facility] [address], [place] [address]Qrhdvil Ql (U)TraceAbnormalNegCincinnati Shriners Hospital Comment on above:Performed By: #### [id number] #### [facility] [address], [place] [address]Zcmdlpdo gravity (U) [Rel density]1.023Invalid Interpretation Code1.005-1.030Day[facility] HospitalComment on above:Performed By: #### [id number] #### [facility] [address], [place] [address]Xckrzobtmubq (U) [Mass/Vol]NegativeNormalNegativeFisher Johns Hopkins HospitalComment on above:Performed By: #### [id number] #### [facility] [address], [place] [address]IJD Auto (Urine sed) [#/Area]29-49Kgzdrgfw2-5Knxami [facility] HospitalComment on above:Performed By: #### [id number] #### [facility] [address], [place] [address]Qhqc of Urine collection methodClean CatchWooster Community HospitalComment on above:Performed By: #### [id number] #### [facility] [address], [place] [address]RBUHRRYKFSYzhtkhx By: Jennifer Santacruz on 72-45-1704Xwsdefzs Auto Ql (U)2+ /HPFInvalid Interpretation CodeTrace/HPFWILLOW [facility]ST [facility] UA Auto SSBilirubin Ql (U) NegativeNormalNegativemg/dLWILLOW CREST HOSPITAL – [place] UA Auto SSClarity (U)Ex.Turbid *ABN* (09/22/23 5:47 AM)Invalid Interpretation CodeClearFCOMMUNITY HOS[facility] [place] UA Auto SSColor (U)Yellow 1 (09/22/23 5:47 AM)NormalYellowWILLOW CREST HOSPITAL – [place] UA Auto SSComment on above:Interpretive Data: Microscopic readings are only performed on those samples that meet specific criteria set forth by [facility].Epithelial cells.squamous Auto (Urine sed) [#/Area]>10 graded/HPFInvalid Interpretation CodeFT UA Auto SSGlucose Ql (U)NegativeNormalNegativemg/dLWILLOW CREST HOSPITAL [facility] [place] UA Auto SS Hemoglobin Auto test strip (U) [Mass/Vol]Negative (09/22/23 5:47 AM)NormalNegativeWILLOW CREST [facility]OSPITAL [facility] [place] UA Auto SSKetones Auto test strip Ql (U)4+ mg/dLInvalid Interpretation CodeNegativemg/dLWILLOW CREST HOSPITAL [facility] [place] UA Auto SSLeukocyte esterase Auto test strip Ql (U)250 Anitra/uL *ABN* (09/22/23 5:47 AM)Invalid Interpretation CodeNegativeWILLOW CREST [facility]OSPITAL [facility] [place] UA Auto SSMucus Auto Ql (U)3+ *ABN* (09/22/23 5:47 AM)Invalid Interpretation CodeNegativeWILLOW [facility]ST [facility] [place] UA Auto SSNitrite Auto test strip Ql (U)NegativeNormalNegativemg/dLWILLOW CREST HOSPITAL – [place] UA Auto SSpH (U)6.0 *NA* (09/22/23 5:47 AM)Invalid Interpretation Code5.0 - 9.0[facility] UA Auto SSProtein Ql (U)Trace mg/dLInvalid Interpretation CodeNegativemg/dLWILLOW CREST HOSPITAL – [place] UA Auto SSSpecific gravity (U) [Rel density]1.023 *NA* (09/22/23 5:47 AM)Invalid Interpretation Code1.005 - 1.030[facility] UA Auto SS Urobilinogen (U) [Mass/Vol]NegativeNormalNegativemg/dLWILLOW CREST HOSPITAL [facility] [place] UA Auto SSWBC Auto (Urine sed) [#/Area]31-75 *ABN* (09/22/23 5:47 AM)Invalid Interpretation Code0-5FTM UA Auto SSURINALYSISOrdered By: Rodrigo Berg on 46-65-0332OZ Spec DescClean Catch (09/22/23 5:47 AM)NormalWILLOW CREST HOSPITAL – [place] UA Auto SS eGFRon 50-45-2615eBMK821 mL/min/1.73 z9Qlbwii>=59Day[facility]opathic HospitalComment on above:Order Comment: Order added by Discern Expert.Performed By: #### [id number] #### [facility] [address], [place] [address]SIR 097303sw 55-13-1391Tgrtkeqw report Cyto stain Doc (Cvx/Vag) NoteInvalid Interpretation [facility] CenterComment on above: Result Comment: TESTS RESULT FLAG UNITS REF RANGE LAB Clinician Provided Cytology Information Source.............Endocervix No. of containers..01 ThinPrep Vial DIAGNOSIS: 01 NEGATIVE FOR INTRAEPITHELIAL LESION OR MALIGNANCY. Specimen adequacy: 01 Satisfactory for evaluation. Endocervical and/or squamous metaplastic cells (endocervical component) are present. Performed by: 01 Puneet Elise, Plant Chief ([facility]) . 01 Note: Note 01 The Pap smear is a screening test designed to aid in the detection of premalignant and malignant conditions of the uterine cervix. It is not a diagnostic procedure and should not be used as the sole means of detecting cervical cancer. Both false-positive and false-negative reports do occur. Test Methodology: Note 01 The Sonogenix(R) Nuclear Physician was unable to read this specimen. Therefore a manual review was performed. . 01 The HPV DNA reflex criteria were not met with this specimen result therefore, no HPV testing was performed. FLAG LEGEND: L-Low Normal,H-High Normal,LL-Alert Low,HH-Alert High <-Panic Low,>-Panic High,A-Abnormal,AA-Critical Abnormal Performed at: 01 [facility] [address] [place] [address] Luz Marina Swann MD, Performed at: [facility] [address] [id number] MD Shree RazaPerformed By: #### [id number] #### [facility] [address] [place], [place] [address]CMA 385223um 34-09-9142Hupxzruzom TechniqueBRUSH-SPATULANormal [facility] HospitalComment on above:Performed By: #### [id number] #### [facility] [address], [place] [address]Ipwvamndktqza Body SiteENDOCERVIXNoOhioHealth Nelsonville Health CenterComment on above:Performed By: #### [id number] #### [facility] [address], [place] [address]Qpupadezq Orderon 93-93-4413Xeirtzyej Order [id number]#1.00TIFFNoOhioHealth Nelsonville Health CenterDHEA SERUMon 01-15-2070Ddopkwrskwgyqsaeylvutu (DHEA)339 ng/rUOjanbu17-911 [facility] CenterComment on above:Result Comment: Age 1 - 5 years 0 - 67 6 - 7 years 0 - 110 8 - 10 years 0 - 185 11 - 12 years 0 - 201 13 - 14 years 0 - 318 15 - 16 years 39 - 481 17 - 19 years 40 - 491 >19 years 31 - 701Performed By: #### DHEA. #### [facility] [address] [place] [address] Dr. Austen CasillasEA-SULFATEon 93-94-5386EYHL-Zqpuxev602.0 ug/pVAmlvup887.0-431.7 [facility] CenterComment on above:Performed By: #### DHEASUL #### [facility] [address] [place] [address] Dr. Austen Duong 71-84-6485DRB9.6 mIU/mLNFairfield Medical CenterComment on above:Result Comment: Adult Female: Follicular phase 3.5 - 12.5 Ovulation phase 4.7 - 21.5 Luteal phase 1.7 - 7.7 Postmenopausal 25.8 - 134.8Performed By: #### LBCFSH #### [facility] [address] [place] [address] Dr. Austen HernadezLUTEINIZING HORMONE (LH)on 98-54-6357FC4.6 mIU/mLNormalOhiohealth Southeastern Medical CenterComment on above:Result Comment: Adult Female: Follicular phase 2.4 - 12.6 Ovulation phase 14.0 - 95.6 Luteal phase 1.0 - 11.4 Postmenopausal 7.7 - 58.5Performed By: #### LBCLH #### [facility] [address] [place] [address] Dr. Austen Lopez AUTO DIFFon 38-95-4664GWFM #0.0 103/ulNormal0.0-0.1The [facility] HospitalComment on above:Performed By: #### CBC #### [facility] [address] [place] [address] Dr. Austen HernadezBasophils/100 WBC (Bld)0.2 %Normal0.2-2.0[facility] Comment on above:Performed By: #### CBC #### [facility] [address] [place] [address] Dr. Austen Sparks #0.1 103/ulNormal0.0-0.7The [facility] HospitalComment on above: Performed By: #### CBC #### [facility] [address] [place] [address] Dr. Austen Millerosinophils/100 WBC (Bld)1.2 %Normal0.9-7.0The [facility] Comment on above:Performed By: #### CBC #### [facility] [address] [place] [address] Dr. Austen Millerrythrocyte distribution width (RBC) [Ratio]12.1 %Hpfvcy84.0-15.0 The [facility] HospitalComment on above:Performed By: #### CBC #### [facility] [address] [place] [address] Dr. Austen HernadezHematocrit (Bld) [Volume fraction]40.2 %Jhnele15.0-48.0The [facility] HospitalComment on above:Performed By: #### CBC #### [facility] [address] [place] [address] Dr. Austen HernadezHemoglobin (Bld) [Mass/Vol]13.3 g/zMMmxepd43.0-16.0The [facility] HospitalComment on above:Performed By: #### CBC #### [facility] [address] [address] [address] Austen Valenzuela #0.04 10e3/ulCritically high0.00-0.03The [facility] Comment on above:Performed By: #### CBC #### [facility] [address] [place] [address] Dr. Austen Valenzuela %0.5 %Normal0.0-0.5The [facility] HospitalComment on above: Performed By: #### CBC #### [facility] [address] [place] [address] Dr. Austen Rebolledo #1.7 103/ulNormal1.2-3.8The [facility] HospitalComment on above:Performed By: #### CBC #### [facility] [address] [place] [address] Dr. Austen Dominguezhocytes/100 WBC (Bld)20.1 %Critically low20.5-60.0The [facility] HospitalComment on above:Performed By: #### CBC #### [facility] [address] [place] [address] Dr. Austen LaiUAL DIFF REQNONormalThe [facility] HospitalComment on above: Performed By: #### CBC #### [facility] [address] [place] [address] Dr. Austen Phillips (RBC) [Entitic mass]30.0 pnYysrvs69.7-34.0The [facility] HospitalComment on above:Performed By: #### CBC #### [facility] [address] [place] [address] Dr. Austen Phillips (RBC) [Mass/Vol]33.1 g/fHJyaktn52.9-35.2The [facility] HospitalComment on above:Performed By: #### CBC #### [facility] [address] [place] [address] Dr. Austen Phillips (RBC) [Entitic vol]90.5 tSCrabjo13.0-99.0The [facility] HospitalComment on above:Performed By: #### CBC #### [facility] [address] [address] [address] Austen Henriquez #0.5 103/ulNormal0.3-0.8The [facility] HospitalComment on above:Performed By: #### CBC #### [facility] [address] [address] [address] Austen Benítezocytes/100 WBC (Bld)5.8 %Normal1.7-12.0The [facility] Comment on above:Performed By: #### CBC #### [facility] [address] [place] [address] Dr. Austen López #6.2 103/ulNormal1.4-6.5The [facility] HospitalComment on above:Performed By: #### CBC #### [facility] [address] [place] [address] Dr. Austen Maganautrophils/100 WBC (Bld)72.2 %Zhvwyi01.0-75.0The [facility] HospitalComment on above:Performed By: #### CBC #### [facility] [address] [place] [address] Dr. Austen Roche mean volume (Bld) [Entitic vol]8.2 fLCritically low 9.5-13.5The [facility] HospitalComment on above:Performed By: #### CBC #### [facility] [address] [place] [address] Dr. Austen HernadezPLT350 103/fyLqchbc729-524Wpq [facility] HospitalComment on above: Performed By: #### CBC #### [facility] [address] [place] [address] Dr. Austen HernadezRBC4.44 106/ulNormal4.20-5.40The [facility] Hospitalment on above:Performed By: #### CBC #### [facility] [address] [place] [address] Dr. Austen HernadezWBC8.6 103/ulNormal4.0-11.0The [facility] HospitalComment on above: Performed By: #### CBC #### [facility] [address] [place] [address] Dr. Austen HernadezGLYCOHEMOGLOBIN A1Con 59-58-0923PRQ RECOMMENDATIONSEE BELOWNocarolinas [facility] The [facility] HospitalCommclaren [facility] on above:Result Comment: ADA RECOMMENDED LIMIT 4.0 - 6.0 ADA THERAPEUTIC TARGET < 7.0 ACTION SUGGESTED > 7.0Performed By: #### A1C #### [facility] [address] [place] [address] Dr. Austen HernadezGlucose [Mass/Vol]108 mg/dLNoDelaware County HospitalComment on above:Performed By: #### A1C #### [facility] [address] [place] [address] Dr. Austen HernadezHbA1c (Bld) [Mass fraction]5.4 %Normal4.5-6.2[facility] CenterCommclaren greater [facility] hospital on above:Performed By: #### A1C #### [facility] [address] [place] [address] Dr. Austen HernadezTSHogurdeep 40-45-7389LJH1.365 uIU/mLNormal0.358-3.740Ohio[facility] Medical CenterComment on above:Performed By: #### TSH #### [facility] [address] [place] [address] Dr. Austen HernadezTSH RANGESEE BELOWMercy Health Anderson HospitalCommclaren greater [facility]ans[facility] hospital on above: Result Comment: <0.34 UIU/ml HYPERTHYROID 0.34-5.60 UIU/ml EUTHYROID >5.60 UIU/ml HYPOTHYROIDPerformed By: #### TSH #### [facility] [address] [place] [address] Dr. Austen HernadezUS PELVIS AND TRANSVAGon 35-26-5817EI PELVIS AND TRANSVAG EXAMINATION: US PELVIS AND [...] Electronically authenticated by: MACARENA GARCIA Date: 2021-07-30 15:31[facility] Vital Signs Date TimeVital SignValuePerforming KesdfzfblSkhxxixv76-01-1254 14:47-0400Body mass index (BMI) [Ratio]30.43 kg/m2Valentina VARGAS Work Phone: [phone] [place], [place] [address]Xjrjsfaxao72-33-8762 14:47-0400Body yklyow80.93 kgValentina VARGAS Work Phone: [phone] [place], [place] [address]Zfmhkzhugv76-37-3879 14:47-0400Diastolic blood ejffuynj45 mm[Hg]Valentina VARGAS Work Phone: [phone] [place], [place] [address]Fjqkldqtjo66-04-4708 14:47-0400Systolic blood lwvoysgk639 mm[Hg]Valentina VARGAS Work Phone: [phone] [place], [place] [address]Xbpjxlqble47-82-8015 14:00-0400Body mass index (BMI) [Ratio]30.79 kg/t3ZluxntfyLayla Rao PUBLIC HEALTH SERVICE OFFICER Work Phone: [phone] [place], [place] [address]Nlzqwxrrci41-60-9164 14:00-0400Body zzboye90.83 kgLayla Rao PUBLIC HEALTH SERVICE OFFICER Work Phone: [phone] CenterGeupvhmcee36-38-2684 14:00-0400Diastolic blood xbwfgzat72 mm[Hg]Layla Rao PUBLIC HEALTH SERVICE OFFICER Work Phone: [phone] [place], [place] [address]Pmplrjxtaz83-25-7584 14:00-0400Systolic blood txexfaik516 mm[Hg]Layla Rao PUBLIC HEALTH SERVICE OFFICER Work Phone: [phone] [place] Medical CenterZryzzuktqj19-10-3804 13:31-0400Body mass index (BMI) [Ratio]31.18 kg/p6SfknsHealthAlliance [facility]09-04-2025 13:31-0400Body weight 79.[address]HealthAll[address] [facility]09-04-2025 13:31-0400Diastolic blood umxpmfyi20 mm[Hg][facility]iance [facility]09-04-2025 13:31-0400Systolic blood iwgsektx369 mm[Hg][facility]03-24-2025 11:27-0400Body mass index (BMI) [Ratio] 29.23 kg/m2Amy Suzi VARGAS Work Phone: 1(735)991-[address] [place], [place] [address]Uodqlryddb42-52-6072 11:27-0400Body chcybu22.84 kgValentina VARGAS Work Phone: [phone] [place], [place] [address]Iaghdygees91-68-7154 11:27-0400Diastolic blood mm[Hg]Valentina VARGAS Work Phone: [phone] [place], [place] [address]Qgbwmjhstb57-47-9752 11:27-0400Systolic blood ehpnithg323 mm[Hg]Valentina VARGAS Work Phone: [phone] [place], [place] [address]Ydunbpxgqg08-28-0925 10:27-0500Body mass index (BMI) [Ratio]32.47 kg/f5Cfkyl Hitesh DO Work Phone: [phone] [place], [place] [address]Hntstpotpe93-20-8916 10:27-0500Body dxzwqy08.14 kgCorey Hitesh DO Work Phone: [phone] [place], [place] [address]Vizcqrmyqy54-63-5255 10:27-0500Diastolic blood ygbwsgja72 mm[Hg]Bakari Hitesh DO Work Phone: 1(860)802-[address] [place], [place] [address]Ycyxrriqzu30-08-1044 10:27-0500Systolic blood zevenzjm349 mm[Hg]Bakari Hitesh DO Work Phone: [phone])212-[address] [place], [place] [address]Kwkpwkljbn25-86-9115 14:32-0500Body mass index (BMI) [Ratio]32.42 kg/m2Valentina VARGAS Work Phone: [phone] [place], [place] [address]Igrsvpuyuf15-35-6196 14:32-0500Body myjktc20.01 kgValentina VARGAS Work Phone: [facility] CenterMnkbsipdqw31-43-8962 14:32-0500Diastolic blood suisvmqm41 mm[Hg]Valentina VARGAS Work Phone: [facility] CenterEuglulitme85-27-0340 14:32-0500Systolic blood jwxenyij807 mm[Hg]Valentina VARGAS Work Phone: [facility] CenterQgiaxwbnii23-70-3926 14:06-0500Body mass index (BMI) [Ratio]32.38 kg/j8Iyqsf Hitesh DO Work Phone: [facility] CenterOkfalekcxo59-80-5717 14:06-0500Body hbtmra33.92 kgCorey Hitesh DO Work Phone: [facility] CenterVndmujhcjn21-29-7821 14:06-0500Diastolic blood fopzmoax09 mm[Hg]Bakari Hitesh DO Work Phone: [facility] CenterMtlutrqcec78-16-1943 14:06-0500Systolic blood mxtnvokd342 mm[Hg]Bakari Hitesh DO Work Phone: [phone] [place], [place] [address]Slrxkpfuet54-93-2349 14:43-0500Body mass index (BMI) [Ratio]31.78 kg/x4Uoqpk Hitesh DO Work Phone: [facility] CenterBencznmflp78-07-9953 14:43-0500Body ivccbh27.38 kgCorey Hitesh DO Work Phone: [facility] CenterDiajfcpjws61-80-1371 14:43-0500Diastolic blood bputgbkj86 mm[Hg]Bakari Hitesh DO Work Phone: 1([phone] [place], [place] [address]Pnrynimgcb27-54-5403 14:43-0500Systolic blood zdoumxcg352 mm[Hg]Bakari Hitesh DO Work Phone: 1(009)251-[address] [place], [place] [address]Uzsqctunzd26-90-5375 13:34-0500Body mass index (BMI) [Ratio]31.53 kg/m2Amy Suzi VARGAS Work Phone: [facility] CenterEmuwwsbwpd03-75-0581 13:34-0500Body .74 kgAmy Suzi PA Work Phone: [facility] CenterXnahxcesex02-12-2611 13:34-0500Diastolic blood zsyoddgu35 mm[Hg]Valentina Cordova PA Work Phone: 1(900)475-[facility] CenterDdmkxxnviy86-12-2147 13:34-0500Systolic blood wwadacjr783 mm[Hg]Valentina Cordova PA Work Phone: 1(362)260-[facility] CenterTwubtzfvaz85-32-0896 15:40-0500Body mass index (BMI) [Ratio]30.82 kg/m2Amy Belleville PA Work Phone: [phone])566-[address] [place], [place] [address]Rvnouywwtx11-27-9806 15:40-0500Body .93 kgAmy Suzi PA Work Phone: 1(971)532-[facility] CenterVgmuxqbcas30-09-3157 15:40-0500Diastolic blood pxcgzovl99 mm[Hg]Valentina Cordova PA Work Phone: [phone])922-[address] [place], [place] [address]Jrgaexxbtm23-62-4489 15:40-0500Systolic blood fxtjfkda762 mm[Hg]Valentina Cordova PA Work Phone: 1(281)601-[address] [place], [place] [address]Psktcudzpe18-18-5028 15:51-0500Body mass index (BMI) [Ratio]30.11 kg/q1Pyvfe Hitesh DO Work Phone: 1(561)014-[facility] CenterEhicavyvtw89-57-7739 15:51-0500Body yheaup59.11 kgCorey Hitesh DO Work Phone: 1(916)100-[facility]0[place] [address]Blbdawuhli21-64-6931 15:51-0500Diastolic blood mm[Hg]Bakari Hitesh DO Work Phone: 1(369)608-[address] [place] [address]-27-2024 15:51-0500Systolic blood nfnrerll528 mm[Hg]Bakari Hitesh DO Work Phone: 1(813)581-[address] [place], [place] [address]Osibcxtcnw06-35-7619 14:51-0400Body mass index (BMI) [Ratio]28.84 kg/m2Amy Belleville PA Work Phone: 1(623)772-[facility] CenterMtwhoqykuf34-17-8494 14:51-0400Body cjdgze76.85 kgAmy Suzi PA Work Phone: 1(419)[address] [place], [place] 4874210-30-2024 14:51-0400Diastolic blood cexjeidn36 mm[Hg]Valentina VARGAS Work Phone: [phone] CenterXizgzcioot83-86-0660 14:51-0400Systolic blood zokcqmuv240 mm[Hg]Valentina VARGAS Work Phone: 1(782)[address] [place], [place] 4874210-21-2024 10:36-0400Body adiehi756 cm Steffanie York MD Work Phone: 1(697)[address] [place], [place] [address]10-21-2024 10:36-0400Body mass index (BMI) [Ratio]28.48 kg/h7PnoyhaSteffanie York MD Work Phone: 1(132)[address] [place], [place] 9614610-21-2024 10:36-0400Body fnqpap33.94 kgSteffanie York MD Work Phone: 1(981)[address] [place], [place] 96[address]10-21-2024 10:36-0400Diastolic blood brtcjqbu12 mm[Hg]Steffanie York MD Work Phone: 1(714)[address] [place], [place] 96[address]10-21-2024 10:36-0400Heart rate 67 /minSteffanie York MD Work Phone: 1(927)[address] [place], [place] 9614610-21-2024 10:36-0400Systolic blood vugeohog881 mm[Hg]Steffanie York MD Work Phone: 1(629)[address] [place], [place] 96[address]10-02-2024 14:35-0400Body mass index (BMI) [Ratio]28.48 kg/g6Bftxg Hitesh DO Work Phone: [phone]10-02-2024 14:35-0400Body .92 kgCorey Hitesh DO Work Phone: 1(139)[address] [place], [place] 487[address]10-02-2024 14:35-0400Diastolic blood jaqsmjcw05 mm[Hg]Bakari Hitesh DO Work Phone: 1(578)[address]10-02-2024 14:35-0400Systolic blood emjcevat550 mm[Hg]Bakari Hitesh DO Work Phone: [facility] CenterBprjrsgprl20-99-9417 17:27-0400Body .02 cm[facility]09-26-2024 17:27-0400Body mass index (BMI) [Ratio]28.3 kg/r8GpmnszgipUniversity Hospitals [facility]09-26-2024 17:27-0400Body ubjthkzusqk94.6 [degF][facility]09-26-2024 17:27-0400Body aqfemw14.57 kgUniversity [facility]als [facility]09-26-2024 17:27-0400Diastolic blood soydzsyy35 mm[Hg][facility]09-26-2024 17:27-0400 Heart rate87 /minUniversity Hospitals Port[facility] Center09-26-2024 17:27-5709FeF9% (BldA) [Mass fraction]97 %[facility]09-26-2024 17:27-0400 Systolic blood ihfuonfz210 mm[Hg][facility]09-04-2024 16:05-0400Body mass index (BMI) [Ratio]26.93 kg/z4Htqdz Hitesh DO Work Phone: [facility] CenterKcliybcppz64-96-6100 16:05-0400Body eqrbao00.95 kgCorey Hitesh DO Work Phone: [facility] CenterFpgjhsqofx30-23-0030 16:05-0400Diastolic blood zdblelor23 mm[Hg]Bakari Hitesh DO Work Phone: [facility] CenterHujwbgdkay52-69-0927 16:05-0400Systolic blood mm[Hg]Bakari Hitesh DO Work Phone: [facility] CenterVmgxrqfzvw07-22-1029 07:00-0400Diastolic blood thmojlwv33 mm[Hg]Rodrigo [facility]07-11-2024 07:00-0400Heart rate58 /minNoah Morena [facility]07-11-2024 07:00-0400Mean blood fvqauxsx16 mm[Hg]Rodrigo Morena [address]07-11-2024 07:00-0140ZwU5% (BldA) [Mass fraction]100 %Rodrigo Morena [address] [place], [place] [address]07-11-2024 07:00-0400 Systolic blood zpveerqo192 mm[Hg]Rodrigo Morena [address] [place], [place] [address]07-11-2024 06:30-0400 Diastolic blood rprjzeeo76 mm[Hg]Rodrigo Morena [address] [place], [place] [address]07-11-2024 06:30-0400Heart rate62 /minNoah Morena [address] [place], [place] [address]07-11-2024 06:30-0400Mean blood erityecs73 mm[Hg]Rodrigo Morena [address] [place], [place] [address]07-11-2024 06:30-0400 Respiratory rate16 /minNoah Morena [address] [place], [place] [address]07-11-2024 06:30-5255OaG4% (BldA) [Mass fraction]99 %Rodrigo Morena [address] [place], [place] [address]07-11-2024 06:30-0400 Systolic blood mm[Hg]Rodrigo Morena [address] [place], [place] [address]07-11-2024 05:52-0400 Diastolic blood mm[Hg]Rodrigo Morena [address] [place], [place] [address]07-11-2024 05:52-0400Heart rate76 /minNoah Morena [address] [place], [place] [address]07-11-2024 05:52-0400Mean blood ksjogdjk80 mm[Hg]Rodrigo Morena [address] [place], [place] [address]07-11-2024 05:52-0400 Respiratory rate18 /minNoah Morena [facility]07-11-2024 05:52-7088MnM6% (BldA) [Mass fraction]98 %Rodrigo Berg [facility]07-11-2024 05:52-0400 Systolic blood mm[Hg]Rodrigo Berg [facility]07-11-2024 05:29-0400Body .96 [degF]Rodrigo Berg [facility]07-11-2024 05:29-0400Heart rate67 /Aristeo Berg [facility]05-06-2024 00:06-0400Body luvggy482 Lilia Servin MD Work Phone: [facility]05-06-2024 00:06-0400Body mass index (BMI) [Ratio]30.11 kg/m2Elva Servin MD Work Phone: [facility]05-06-2024 00:06-0400Body yjggrxwliyu75.29 [degF]Elva Servin MD Work Phone: [facility]05-06-2024 00:06-0400Body .11 kgElva Servin MD Work Phone: [facility]05-06-2024 00:06-0400Diastolic blood lmkjjesy23 mm[Hg]Elva Servin MD Work Phone: [facility]05-06-2024 00:06-0400Heart rate61 /Gina Servin MD Work Phone: [facility]05-06-2024 00:06-0400 Respiratory rate16 /Gina Servin MD Work Phone: [facility]05-06-2024 00:06-3902XrT3% (BldA) [Mass fraction]96 %Elva Servin MD Work Phone: [facility]05-06-2024 00:06-0400Systolic blood cvctmarx107 mm[Hg]Elva Servin MD Work Phone: [facility]04-26-2023 09:35-0400Diastolic blood vfvyqbyu62 mm[Hg]Chris Banegas 258-8569Alkhcu-ZjbvnMed[facility] Rhax42-84-0997 09:35-0400Heart rate83 /minJamie Bassam 101-4823Owukmz-NygvaMedina Hospital [facility]ient Neah04-35-4474 09:35-8249GlN1% (BldA) [Mass fraction]97 %Chris Bassam 639-1356Vwfvvl-JzkylMedina Hospital [facility] Hrtf08-93-5194 09:35-0400Systolic blood emldwcmj547 mm[Hg]Chris Banegas [phone]-XldxqMedina [facility] Care Encounters Encounter DateEncounter TypeCare ProviderFacilityStart: 01-08-2025 End: 59-58-2737Hjkbixjh preventive med est patient 18-39 yrsValentina VARGAS Work Phone: [facility] OBGYNComment on above:Second trimester ([facility]); 14 weeks gestation of ([facility])Start: 01-08-2025 End: 45-97-0004Zfunwm Rosibel VARGAS Work Phone: [facility]BGYNStart: 01-08-2025 End: 82-42-5128Dbgcvs Rosibel VARGAS Work Phone: [facility]BGYNStart: 12-11-2024 End: 87-35-9561Fzedjc Randall Rao NP Work Phone: [facility]BGYNStart: 12-11-2024 End: 54-55-2205Ydhnay flowsheetLayla Rao NP Work Phone: [facility] [place] OBGYNStart: 12-11-2024 End: 82-13-6404Vgmxvkat flow sheetLayla Rao PUBLIC HEALTH SERVICE OFFICER Work Phone: [facility] OBGYNComment on above:Nausea (Primary Dx); 10 weeks gestation of ([facility]); First trimester ([facility]); Herpes simplex; History of miscarriageStart: 12-11-2024 End: 24-11-9182ojlmvagsroNGAOTKDI EBERLYNot AvailableStart: 12-03-2024 End: 05-98-3373Trjgrvryu Result EncounterCorey Hitesh DO Work Phone: [facility] External Department UnsolicitedStart: 12-03-2024 End: 07-50-7443Nirgkyrjb Result EncounterCorey Hitesh DO Work Phone: [facility] External Department UnsolicitedStart: 11-15-2024 End: 07-48-2759Mmvvzp outpatient visit 5 minutesFazio Nurse [facility] B[facility] ObNOMS [facility]arrison OBGYNComment on above:GA: 6a7qRfzku: 11-15-2024 End: 84-38-7531lsrepafiwvCIMGW FAZIONot AvailableStart: 10-26-2024 End: 44-22-8104nzgmpufjgaEdcyi R FAZIOFacility:FTMCStart: 06-04-2024 End: 00-88-7150Yhvffzpnuk care visitValentina VARGAS Work Phone: [facility] BCP OBComment on above:6 weeks follow-up; Spontaneous vaginal delivery; Herpes simplexStart: 06-04-2024 End: 27-67-3990wkhvqrwibzTCE RAMEYNot AvailableStart: 04-24-2024 End: 57-72-0068Xlyztadvu Result EncounterCorey Hitesh DO Work Phone: [facility] External Department UnsolicitedStart: 04-24-2024 End: 68-15-0737Flhkbylpn Result EncounterCorey Hitesh DO Work Phone: [facility] External Department UnsolicitedStart: 04-23-2024 End: 39-55-6092Yfuhozjrs Result EncounterCorey Hitesh DO Work Phone: [facility] External Department UnsolicitedStart: 04-23-2024 End: 88-15-3420Wjzxqafwy Result EncounterCorey Hitesh DO Work Phone: [facility] External Department UnsolicitedStart: 04-19-2024 End: 31-53-0017Cqfajg flowsheetCorey Hitesh DO Work Phone: [facility] OBStart: 04-19-2024 End: 76-76-7783Olrpyd flowsheetCorey Hitesh DO Work Phone: [facility] OBStart: 04-19-2024 End: 90-00-5181Lojupxsl flow sheetCorey Hitesh DO Work Phone: [facility] BCP OBComment on above:Third trimester ; 39 weeks gestation of pregnancyStart: 04-19-2024 End: 39-02-7843xjhlggxonjDFRMO FAZIONot AvailableStart: 04-16-2024 End: 76-67-8357aegqfdotucUWG RAMEYNot AvailableStart: 04-11-2024 End: 07-43-3949Esjystoh flow sheetValentina VARGAS Work Phone: [facility] BCP OBComment on above:Third trimester ; 37 weeks gestation of ; Excessive growth affecting management of in third trimester, single or unspecified fetusStart: 04-11-2024 End: 41-25-5075ozclnhkgzeGAH RAMEYNot AvailableStart: 04-11-2024 End: 04-69-3995Cwioky flowsheetValentina VARGAS Work Phone: [facility] B[facility] OBStart: 04-11-2024 End: 87-62-2385Rwbuiq flowsSerafin VARGAS Work Phone: [facility] OBStart: 04-03-2024 End: 31-59-4842Tfkemq flowsheetCorey Hitesh DO Work Phone: [facility] OBStart: 04-03-2024 End: 32-81-8053Imgdgd flowsheetCorey Hitesh DO Work Phone: [facility] OBStart: 04-03-2024 End: 67-99-2929Atsluwgpq Result EncounterCorey Hitesh DO Work Phone: [facility] External Department UnsolicitedStart: 04-03-2024 End: 24-94-5131pyzqpedhucZMVOI FAZIONot AvailableStart: 04-03-2024 End: 18-63-3125Xhahyzhd flow sheetCorey Hitesh DO Work Phone: [facility] BCP OBComment on above:Third trimester ; 36 weeks gestation of pregnancyStart: 03-27-2024 End: 17-72-7605xfppnzwiwoSLIFB FAZIONot AvailableStart: 03-27-2024 End: 96-68-5011Tgjwaquc flow sheetCorey Hitesh DO Work Phone: [facility] BCP OBComment on above:Third trimester ; 35 weeks gestation of ; Mood disorder (CMS/HCC)Start: 03-27-2024 End: 31-51-2681Zxpfla flowsheetCorey Hitesh DO Work Phone: [facility] BCP OBStart: 03-27-2024 End: 06-62-3873Kvbvcf flowsheetCorey Hitesh DO Work Phone: [facility] BCP OBStart: 03-23-2024 End: 36-35-2635Oqxqrhjnh Result EncounterCorey Hitesh DO Work Phone: [facility] External Department UnsolicitedStart: 03-23-2024 End: 33-51-1956Stbkaksyb Result EncounterCorey Hitesh DO Work Phone: [facility] External Department UnsolicitedStart: 03-12-2024 End: 49-16-8839Tjrvgfad flow sheetAmy Suzi VARGAS Work Phone: [facility] BCP OBComment on above:33 weeks gestation of ; Third trimester pregnancyStart: 03-12-2024 End: 01-30-1428Yyvcod flowsSerafin VARGAS Work Phone: [facility] B[facility] OBStart: 03-12-2024 End: 16-17-1829Gxxdzq flowsheetValentina VARGAS Work Phone: [facility] OBStart: 03-12-2024 End: 91-40-7494hmpoubvfiaFVB RAMEYNot AvailableStart: 02-23-2024 End: 92-99-7896Geqjmjbp flow sheetValentina VARGAS Work Phone: [facility] BCP OBComment on above: size inconsistent with dates (Primary Dx); Third trimester ; 30 weeks gestation of ; Herpes simplexStart: 02-23-2024 End: 56-73-9777gvotkhmmyaJHO RAMEYNot AvailableStart: 02-23-2024 End: 32-05-4094Mcsyuv Rosibel VARGAS Work Phone: [facility] OBStart: 02-23-2024 End: 95-53-5368Vxcflq flowsheetValentina VARGAS Work Phone: [facility] BCP OBStart: 02-08-2024 End: 81-42-2819qivjljbrulKWINR FAZIONot AvailableStart: 02-08-2024 End: 50-78-7415Wuzjtpbu flow sheetCorey Hitesh DO Work Phone: [facility] BCP OBComment on above:Third trimester ; 28 weeks gestation of pregnancyStart: 02-08-2024 End: 79-02-5043Eaiytd flowsheetCorey Hitesh DO Work Phone: [facility] OBStart: 02-08-2024 End: 90-07-7832Ykuqta flowsheetCorey Hitesh DO Work Phone: [facility] B[facility] OBStart: 02-02-2024 End: 06-12-9241lyiyiptnydHVMUMZEdgerton Hospital and [facility] Services PPGStart: 02-01-2024 End: 13-57-9168Jkcxyomcd Result EncounterVaelntina VARGAS Work Phone: [facility] External Department UnsolicitedStart: 02-01-2024 End: 17-07-9275Sdowggvzl Result EncounterAmy Suzi VARGAS Work Phone: [facility] External Department UnsolicitedStart: 01-28-2024 End: 63-41-7587Vzmifjrym Result EncounterAmy Suzi VARGAS Work Phone: noMS External Department UnsolicitedStart: 01-28-2024 End: 51-50-9496Edomiyeei Result EncounterAmy Suzi VARGAS Work Phone: noMS External Department UnsolicitedStart: 01-11-2024 End: 73-95-7770Kvcgbscg flow sheetValentina VARGAS Work Phone: noms BCP OBComment on above:Second trimester ; 24 weeks gestation of ; Diabetes mellitus screeningStart: 01-11-2024 End: 61-82-1599iqhqexdwkwZEN RAMEYNot AvailableStart: 01-11-2024 End: 16-80-8157Mojtat flowsheetValentina VARGAS Work Phone: [facility] BCP OBStart: 01-11-2024 End: 76-22-6992Iddpxo flowsheetValentina VARGAS Work Phone: noMS [facility] OBStart: 01-02-2024 End: 09-08-2882Ouyijm consultation new/estab patient 58 Bonita York MD Work Phone: Maternal Medicine CussetaComment on above: Partial placenta previa (Primary Dx)Start: 01-02-2024 End: 60-20-7940zccxjjozsoBGGQAWashington County Memorial HospitalComment on above: Low-lying placenta (Primary Dx); Personal history of cardiac murmurStart: 12-20-2023 End: 68-59-3857Ynkkk Maria York MD Work Phone: [phone]-Mdmqw [facility] Start: 12-16-2023 End: 96-06-2891Rbuyb Maria York MD Work Phone: [phone]-Dmzvs [facility] Start: 12-14-2023 End: 21-35-7921Ylpduwsh flow sheetCorey Hitesh DO Work Phone: noms BCP OBComment on above:Second trimester ; 20 weeks gestation of ; Partial placenta previaStart: 12-08-2023 End: 44-63-7138puwhphtewfFspwukvtqSumma Health [facility] Work Phone: Start: 12-08-2023 End: 39-20-3216Wjgfirn encounter procedureCritical Access Hospital [facility] Work Phone: Start: 11-16-2023 End: 80-27-0818Rtehjoj encounter procedureCorey Hitesh DO Work Phone: noms HealthcareStart: 11-16-2023 End: 90-36-7606Lpbphhsm preventive med est patient 18-39 yrsCorey Hitesh DO Work Phone: noms BCP OBComment on above:Well woman exam with routine gynecological exam; Second trimester ; Exposure to STD; Screening, , for anatomic survey; Need for maternal serum alpha-protein (MSAFP) screeningStart: 11-16-2023 End: 66-16-9143Vsjlzm flowsheetCorey Hitesh DO Work Phone: noms BCP OBStart: 11-16-2023 End: 03-29-4260Tkihvwblk Result EncounterCorey Hitesh DO Work Phone: noms External Department UnsolicitedStart: 11-16-2023 End: 74-87-3644Wafgwjgt Result EncounterCorey Hitesh DO Work Phone: noms External Department UnsolicitedStart: 11-16-2023 End: 81-45-4280Vmiqnlne Result EncounterCorey Hitesh DO Work Phone: noms External Department UnsolicitedStart: 09-22-2023 End: 62-83-8367Uwqcoodaj department patient visitNotho Berg [facility] Start: 07-18-2023 End: 45-57-4972Zvstdhvvg department patient visitELVA SERVINDayton Children's Hospitaltart: 07-18-2023 End: 03-20-0251Hpuguzykr department patient visitElva Roberto Carlos CORMIER Work Phone: [facility] EDComment on above:De Quervain's tenosynovitis, left (Primary Dx)Start: 07-14-2023 End: 87-05-6750kcdsuoolpyMxzzxj J LampeFacility:FTMCStart: 07-14-2023 End: 73-65-2004Inr Drop offTeresa J Spencer [facility] Start: 07-07-2022 End: 80-37-8191Lshoxay encounter procedureChris aBnegas [phone]-TbklnMed[facility] Start: 07-30-2021 End: 06-46-1360dzkviutxqpRF BAKARI FAZIOFacility:Y7Bmozk: 07-15-2021 End: 76-45-1203Lbo Drop offTeresa J Spencer [facility] Procedures DateProcedureProcedure DetailPerforming ClinicianStart: 16-36-8788Cjkkl dip stick/tablet rgnt non-auto w/o micrscpAmy Suzi PA Work Phone: Start: 68-87-3017Ojtib dip stick/tablet rgnt non-auto w/o micrscpLayla Rao PUBLIC HEALTH SERVICE OFFICER Work Phone: Start: 97-95-8592NQQ CBC WITH AUTO DIFFCorey Hitesh DO Work Phone: Start: 26-00-8969Yhimd test visual color cmprsn methsCorey Hitesh DO Work Phone: Start: 73-28-5204YKJ CBC WITH AUTO DIFFCorey Hitesh DO Work Phone: Start: 46-26-9132TWZM CBC WITH PLATELET NO DIFFERENTIALCorey Hitesh DO Work Phone: Start: 40-95-4884IDH DRUG SCREEN RAPID (URINE)Bakari Proctor DO Work Phone: Start: 73-24-1217Sblly dip stick/tablet rgnt non-auto w/o micrscpAmy Suzi VARGAS Work Phone: Start: 54-74-9109Lwvpg dip stick/tablet rgnt non-auto w/o micrscpCorey Hitesh DO Work Phone: Start: 70-21-9776IEH MISCELLANEOUS TESTCorey Hitesh DO Work Phone: Start: 75-04-1447Fhzou dip stick/tablet rgnt non-auto w/o micrscpCorey Hitesh DO Work Phone: Start: 08-51-0682QTW UA (CLEAN/CATCH) LIVESTOCK HAULIER/MICRO IF IND.Bakari Proctor DO Work Phone: Start: 48-01-1204Siaut dip stick/tablet rgnt non-auto w/o micrscpAmy Suzi VARGAS Work Phone: Start: 54-55-9414Sjcdb dip stick/tablet rgnt non-auto w/o micrscpCorey Hitesh DO Work Phone: Start: 84-87-0324EAESGPG TOLERANCE 3 HOURAmy Suzi VARGAS Work Phone: Start: 51-92-1636VNB CBC WITH AUTO DIFFAmy Suzi VARGAS Work Phone: Start: 39-97-0908CSGBAQS 1 HOURAmy Suzi VARGAS Work Phone: Start: 66-71-7232Nmbvi dip stick/tablet rgnt non-auto w/o micrscpAmy Suzi VARGAS Work Phone: Start: 81-76-6312Ahmna dip stick/tablet rgnt non-auto w/o micrscpCorey Hitesh DO Work Phone: Start: 16-53-7270Myqsj Strep (POC)Start: 11-16-2023 Urnls dip stick/tablet rgnt non-auto w/o micrscpCorey Hitesh DO Work Phone: Start: 80-71-6245XYC,APTIMA HPV,AGE GDLNCorey Hitesh DO Work Phone: Start: 14-00-0107Mmzufotmynz observation [Identifier] in Cervix by Cyto stainSteffanie York MD Work Phone: Start: 93-54-9753WHYODNCVXO/DISCHARGE PLUS VAGINITIS (HTRX)Bakari Hitesh DO Work Phone: Plan of Treatment DateCare ActivityDetailAuthorStart: 52-46-4306Dzpoduvur for malignant neoplasm of cervixPap SmearProRypos SystemStart: 02-06-2025 End: 58-42-1599Savsxpk encounter gcgaoqtha87/26/2025 1:40 PM EST Routine [facility] [address] [place], [id number] Bakari Proctor, DO [address] [place], [place] [id number] [facility] OBGYNStart: 01-08-2025 End: 77-05-7179Vsekvbh encounter procedureNOMS Garrison OBGYNComment on above: ArrivedStart: 01-01-2025 End: 07-95-4055HB MFM with or without consultUS MFM with or without consult Imaging Routine Low-lying placenta Personal history of cardiac murmur Expected: 01/01/2025 (Approximate), Expires: 01/01/2025[facility] Work Phone: comment on above:Expected: 01/01/2025 (Approximate), Expires: 01/01/2025Start: 12-11-2024 End: 84-60-6888Ukfboho encounter procedureSTEPHANY Ji OBGYNComment on above: ArrivedStart: 11-21-2024 End: 99-39-1618Xpbdkds encounter thkovizrj57/10/2025 3:00 PM EDT Office Visit [facility] [address] [place] [id number] Bakari Proctor, DO [address] [place] [address] [facility] BCP OBStart: 11-15-2024 End: 28-90-5224KWN/RhABO/Rh Lab Routine Missed menses , unspecified gestational age ([facility]) Expected: 11/15/2024 (Approximate), Expires: 11/15/2025[facility] HealthcareComment on above:Expected: 11/15/2024 (Approximate), Expires: 11/15/2025Start: 11-15-2024 End: 09-03-0654Znguq type and Indirect antibody screen panel - BloodType and screen Lab Routine Missed menses , unspecified gestational age ([facility]) Expected: 11/15/2024 (Approximate), Expires: 11/15/2025[facility] Work Phone: comment on above:Expected: 11/15/2024 (Approximate), Expires: 11/15/2025Start: 11-15-2024 End: 93-86-8693Llisi of abuse panel - Urine by Screen methodRapid drug screen, urine Lab Routine , unspecified gestational age ([facility]) Encounter for supervision of normal first in first trimester ([facility]) Expected: 11/15/2024 (Approximate), Expires: 11/15/2025[facility] HealthcareComment on above: Expected: 11/15/2024 (Approximate), Expires: 11/15/2025Start: 24-52-3258OTDBY-19 Vaccine (1 - 2024-25 season)COVID-19 Vaccine ( season)[facility] HealthcareStart: 36-37-0348Gitnbusuk vaccinationInfluenza Vaccine (#1)[facility] HealthcareStart: 04-19-2024 End: 61-06-4944Nspqxzc encounter procedureNOMS BCP OBComment on above:Arrived Start: 04-16-2024 End: 15-59-0940Mydxrpbsaltb / ancillary services aklqaejtws85/03/2025 3:00 PM EST Ancillary Procedure [facility] [address] [place] [place] [address] [facility] BCP OBStart: 04-11-2024 End: 85-01-8408Dywedkq encounter procedureNOMS BCP OBComment on above:Arrived Start: 04-11-2024 End: 82-04-9407FQ for pregnancyUS OB follow up transabdominal approach Imaging Routine Excessive growth affecting managementof in third trimester, single or unspecified fetus Expected: 04/11/2024, Expires: 04/11/2025 [facility] Work Phone: comment on above:Expected: 04/11/2024, Expires: 04/11/2025Start: 04-03-2024 End: 08-05-8563WFFWEKS, GROUP B STREP WITH SUSCEPTIBLITYCULTURE, GROUP B STREP WITH SUSCEPTIBLITY Lab Routine Third trimester Expected: 04/03/2024, Expires: 04/03/2025[facility] Work Phone: comment on above:Expected: 04/03/2024, Expires: 04/03/2025Start: 04-03-2024 End: 21-54-4772Tsezuzg encounter /21/2025 1:30 PM EST Routine [facility] [address] [place] [address] Bakari Proctor, DO [address] [place] [address] [facility] BCP OBStart: 03-27-2024 End: 01-96-7446Zrecakp encounter tjpkzafid92/ 2:30 PM EST Routine [facility] [address] [place] [id number] Bakari Proctor, DO [address] [place] [address] [place] [address] [facility] BCP OBStart: 03-12-2024 End: 19-44-5436Qvotpdi encounter unbgddwxu66/30/2024 2:40 PM EST Routine [facility] [address] [place] [phone] Valentina Cordova, PA [address] [place], [place] [id number] ArrivedNOMS BCP OBComment on above: ArrivedStart: 03-12-2024 End: 23-73-8678Inbllzgtkijm / ancillary services ffynzgiwnc24/30/2024 1:00 PM EST Ancillary Procedure [facility] [address] [place] [address] [facility] BCP OBStart: 02-23-2024 End: 72-56-7382Rpabwpi encounter procedureNOMS BCP OBComment on above:Arrived Start: 02-23-2024 End: 88-66-4892WZ for pregnancyUS OB SCAN FOR GROWTH Imaging Routine size inconsistent with dates Expected: 02/23/2024(Approximate), Expires: 02/22/2025[facility] Work Phone: comment on above:Expected: 02/23/2024 (Approximate), Expires: 02/22/2025Start: 02-08-2024 End: 10-15-8603Sfgftwg encounter giwstzthp65/27/2024 3:10 PM EST Routine [facility] [address] [place] [phone] Bakari Proctor, DO [address] [place] [address] [facility] BCP OBStart: 02-02-2024 End: 21-46-8175Xvyyjeu encounter aqsatcgiu42/21/2024 1:00 PM EST Appointment [facility] [place] [address] [place] [address] Hbaaljzd [facility] [place]setaStart: 01-11-2024 End: 05-72-7328Dlccuck encounter bdplbqraf62/30/2024 2:30 PM EDT Routine [facility] [address] [place] [address] Valentina Cordova PA [address] [place] [address] [facility] BCP OBStart: 01-11-2024 End: 94-37-2518EJW panel - Blood by Automated countCBC Lab Routine Diabetes mellitus screening Expected: 01/11/2024 (Approximate), Expires: 01/10/2025[facility] Work Phone: comment on above:Expected: 01/11/2024 (Approximate), Expires: 01/10/2025Start: 01-11-2024 End: 21-56-9031Vkpqboafhxr of glucose 1 hour after glucose challenge for glucose tolerance testGlucose tolerance, 1 hour Lab Routine Diabetes mellitus screening Expected: 01/11/2024 (Approximate), Expires: 01/10/2025[facility] HealthcareComment on above:Expected: 01/11/2024 (Approximate), Expires: 01/10/2025Start: 01-02-2024 End: 96-27-7885Tlweddr encounter procedureMaternal Medicine [place] Start: 12-14-2023 End: 71-09-9489Malupqe encounter kusfixnop92/02/2024 2:10 PM EDT Routine [facility] [address] [place] [address] Bakari Proctor DO [address] [place] [address] [facility] BCP OBStart: 12-14-2023 End: 12-76-4562Blwwqfhmtxye / ancillary services ropvzdsufr23/02/2024 1:00 PM EDT Ancillary Procedure [facility] [address] [place] [address] [facility] BCP OBStart: 11-16-2023 End: 55-26-8707Opqgywm encounter etidutcsx28/04/2024 3:30 PM EDT Routine [facility] [address] [place] [address] Bakari Proctor, DO [address] [place] [address] [facility]rivedDES[facility] OBComment on above: ArrivedStart: 11-16-2023 End: 48-43-8949Gxkpv fetoprotein, maternalAlpha fetoprotein, maternal Lab Routine Need for maternal serum alpha-protein (MSAFP) screening Expected: 11/16/2023 (Approximate), Expires: 12/16/2023[facility] HealthcareComment on above: Expected: 11/16/2023 (Approximate), Expires: 12/16/2023Start: 11-16-2023 End: 82-84-7702RP for pregnancyUS OB ANATOMY SINGLE W US OB CERVICAL LENGTH Imaging Routine Screening, , for anatomic survey Expected: 11/16/2023 (Approximate), Expires: 11/15/2024[facility] HealthcareComment on above: Expected: 11/16/2023 (Approximate), Expires: 11/15/2024Start: 11-13-2023 Influenza vaccinationUTAH VALLEY HOSPITAL HealthcareStart: 60-14-9594Nbvssmzja vaccinationFlu vaccine (Season Ended)[facility]SStart: 96-16-2858QEtX,Tdap and Td Vaccines (7 - Td or Tdap)DTaP,Tdap and Td Vaccines (7 - Td or Tdap)[facility] SystemStart: 65-74-5342Glkklvice for malignant neoplasm of cervixPap SmearProBarnesville Hospitalca [facility] SystemStart: 51-41-9488EXmR,Tdap and Td Vaccines (1 - Tdap)DTaP,Tdap and Td Vaccines (1 - Tdap)[facility] SystemStart: 09-54-0421XWqX/Tdap/Td vaccine (1 - Tdap)DTaP/Tdap/Td vaccine (1 - Tdap)[facility]SStart: 61-02-1043Huzgpooqy B Vaccines (1 of 3 - 19+ 3-dose series)Hepatitis B Vaccines (1 of 3 - 19+ 3-dose series)[facility] HealthcareStart: 25-12-4370Nmuwh BMI Follow Up PlanAdult BMI Follow Up PlanSelect [facility] SystemStart: 00-45-8577Qbubb BMI ScreeningAdult BMI ScreeningSelect [facility] SystemStart: 13-35-3532DIN Vaccines (1 - 3-dose series)HPV Vaccines (1 - 3-dose series)[facility] HealthcareStart: 26-64-2661Fxdfxmi of varicella vaccinationVaricella Vaccines (1 of 2 - 13+ 2-dose series)[facility] HealthcareStart: 62-40-3324Rztgqdxqnm ScreeningDepression ScreeningUNC Health Blue Ridgetart: 68-33-3156Rmamvjy ScreeningTobacco ScreeningUNC Health Blue Ridgetart: 47-99-1696GEyK/Tdap/Td Vaccines (1 - Tdap)DTaP/Tdap/Td Vaccines (1 - Tdap)[facility] HealthcareStart: 44-54-7472DVI Vaccines (1 of 1 - Standard series)MMR Vaccines (1 of 1 - Standard series)[facility] HealthcareStart: 19-40-4261MNXXI-19 Vaccine (#1)COVID-19 Vaccine (#1)[facility] DAUGHTERSBacteria identified in Urine by CultureUrine culture Microbiology Routine Missed menses Ordered: 11/15/2024[facility] HealthcareComment on above:Ordered: 11/15/2024BC W Auto Differential panel - BloodCBC and differential Lab Routine Missed menses , unspecified gestational age ([facility]) Ordered: 11/15/2024[facility] HealthcareComment on above:Ordered: 11/15/2024 CHLAMYDIA TRACHOMATIS (GENITO/STI)CHLAMYDIA TRACHOMATIS (GENITO/STI) Lab Routine Exposure to STD Ordered: 11/16/2023[facility] HealthcareComment on above:Ordered: 11/16/2023HLAMYDIA TRACHOMATIS (GENITO/STI)CHLAMYDIA TRACHOMATIS (GENITO/STI) Lab Routine Second trimester ([facility]) Ordered: 01/08/2025[facility] HealthcareComment on above:Ordered: 01/08/2025ytology Cervical or vaginal smear or scraping studyPap Smear Pathology and Cytology Routine Well woman exam with routine gynecological exam Ordered: 11/16/2023[facility] Healthcare Work Phone: comment on above:Ordered: 11/16/2023ytology Cervical or vaginal smear or scraping studyPap Smear Pathology and Cytology Routine Second trimester ([facility]) Ordered: 01/08/2025[facility] HealthcareComment on above:Ordered: 01/08/2025Hemoglobin A1c/Hemoglobin.total in BloodHemoglobin A1c Lab Routine Missed menses , unspecified gestational age ([facility]) Ordered: 11/15/2024[facility] CenterComment on above:Ordered: 11/15/2024Hepatitis B virus surface Ag [Presence] in Serum or Plasma by ImmunoassayHepatitis B surface antigen Lab Routine Missed menses , unspecified gestational age ([facility]) Ordered: 11/15/2024[facility] CenterComment on above:Ordered: 11/15/2024Hepatitis C virus Ab [Presence] in Serum or Plasma by Immunoassay Hepatitis C antibody Lab Routine Missed menses , unspecified gestational age ([facility]) Ordered: 11/15/2024[facility] HealthcareComment on above: Ordered: 11/15/2024HIV-1/HIV-2 antigen/antibody combination immunoassayHIV-1 and HIV-2 antibodies Lab Routine Missed menses , unspecified gestational age ([facility]) Ordered: 11/15/2024[facility] CenterComment on above:Ordered: 11/15/2024Neisseria gonorrhoeae DNA [Presence] in Unspecified specimen by KESHIA with probe detectionNeisseria gonorrhea DNA probe, direct Lab Routine Exposure to STD Ordered: 11/16/2023[facility] HealthcareComment on above:Ordered: 11/16/2023 Neisseria gonorrhoeae DNA [Presence] in Unspecified specimen by KESHIA with probe detectionNeisseria gonorrhea DNA probe, direct Lab Routine Second trimester ([facility]) Ordered: 01/08/2025[facility] CenterComment on above:Ordered: 01/08/2025Reagin Ab [Presence] in Serum by RPRRPR Lab Routine Missed menses , unspecified gestational age ([facility]) Ordered: 11/15/2024[facility] HealthcareComment on above:Ordered: 11/15/2024Rubella antibody, IgGRubella antibody, IgG Lab Routine Missed menses , unspecified gestational age ([facility]) Ordered: 11/15/2024[facility] HealthcareComment on above:Ordered: 11/15/2024 SURESWAB(R) ADVANCED VAGINITIS PLUS, TMASURESWAB(R) ADVANCED VAGINITIS PLUS, TMA Pathology and Cytology Routine Exposure to STD Ordered: 11/16/2023[facility] HealthcareComment on above:Ordered: 11/16/2023SURESWAB(R) ADVANCED VAGINITIS PLUS, TMASURESWAB(R) ADVANCED VAGINITIS PLUS, TMA Pathology and Cytology Routine Second trimester ([facility]) Ordered: 01/08/2025[facility] Healthcare Work Phone: comment on above:Ordered: 01/08/2025 Immunizations Immunization DateImmunizationNotesCare FaqlpgpeWimjlqei71-57-8236qkognkqqc virus vaccine, unspecified formulationCorey Hitesh DO Work Phone: [facility] Payers DatePayer CategoryPayerPolicy [id number] [facility] ..[id number] Sunrise Regional Treatment Center Managed Care - OtherANTHEM [id number].9.388532.505.65495-41-6117Ipgflzn05-45-5942Eyakjwa [id number] 1.2.840.358193.1.13.239.2.7.3.715[id number] 2.16.840.1.611976.3.579.[id number] 2.16840.1.303210.3.57[id number] 2.16840.1.737315.3.57[id number] 2.840.1.220380.3.579.[id number] 2.840.1.479485.3.579.[id number] 2.0.1.300352.3.579.2.935516-08-9441Ahqxmeu40009340 2.840.1.455519.3.579.2.828625-53-7434Tczyjli74700579 2.840.1.638562.3.579.2.141783-58-0165Tdslqgf16989504 2.0.1.748412.3.579.2.38856-89-8896Hbpynne86690940 2.840.1.040936.3.579.[id number] 2.840.1.746268.3.579.[id number] 2.16840.1.099032.3.579.[id number] 2.840.1.966827.3.579.2.705661-97-4048Shmowue7084650 2.16.840.1.811067.3.579.2.585648-27-6519Pxnlafn3882461 2.16.840.1.059654.3.579.2.193490-13-3020Qynbayg9882004 2.16.840.1.053527.3.579.2.592336-19-6910Jjgsttz0879123 2.16.840.1.944891.3.579.2.542304-00-4671Wqzbgdy4807977 2.16.840.1.106509.3.579.2.691337-49-2865Lzhzobt0146946 2.16.840.1.236703.3.579.2.171950-84-5810Ywirzxm6166484 2.16.840.1.722971.3.579.2.494942-23-2227Znxuweh3254521 2.16.840.1.184057.3.579.2.781050-73-5349Dxosqaz5427011 2.16.840.1.034886.3.579.2.241370-34-6627FzvrbgrIXB484U22260 Social History DateTypeDetailFacilityStart: 10-24-2020 End: 08-86-6295Umfyfna smoking statusNever smoked tobacco (finding)[facility] Hospitaltart: 24-59-9091Adepmmr smoking statusNeverProMedica Memorial Hospitaltart: 07-01-2012 End: 82-50-3541Xyu Assigned At BirthFemalElyria Memorial Hospitaltart: 07-18-2023 End: 03-49-4915Kmglmps use and exposureSmokeless tobacco non-userBON [facility], AVONStart: 07-18-2023 End: 24-79-8629Ocmiqnr intakeEx-drinker (finding)[facility], AVONStart: 07-01-2012 End: 81-73-9899Xlqtvel of Social functionBON [facility], AVONStart: 04-63-6891Lmu Assigned At BirthNot on fileBON SELECT [facility], AVONStart: 08-52-6290Rcg Assigned At BirthFeMercy Health St. Elizabeth Boardman HospitalTobacco smoking status NHISTobacco smoking consumption unknownNORI HealthcareStart: 16-17-6231MyanglxprOVJW HealthcareStart: 67-56-5412Mazfmc identityIdentifies as female gender (finding)[facility] HealthcareStart: 50-20-0011MdwFbtbku (finding) [facility] SystemNEGATED: Highlighted rowStart: NINFHistory of tobacco use Passive smokerProMedica Health System Goals DatePatient GoalDesired Activity/StatePersonal health goal Functional Status TwgfJildpchfoxQubsoiZhqmhtgf79-52-9354Pbnlcddpaq StatusN/[facility]04-26-2023Functional StatusN/[facility] Clinical Notes 07-15-2021 to 01-08-2025 Note Date & OfdlVarfBilwqdoy02-03-5607 History of Present illness Narrative* ALICIA Knutson - 01/08/2025 2:30 PM EDT Reason for Appointment: Patient ID: Sebastian Sanchez is a 24 y.o. female who [...] nursing note reviewed. Exam conducted with a sanitary chemist present. Vitals: Estimated body mass index is 30.43 kg/m as calculated from the following: Height as of 07/05/22: 5' 3 . Weight as of this encounter: 171 lb 12.8 oz. BP: 102/68 Patient's last menstrual period was 10/01/2024. Assessment/Plan ICD-10-CM 1. Second trimester ([facility]) Z34.92 SURESWAB(R) ADVANCED VAGINITIS PLUS, TMA CHLAMYDIA TRACHOMATIS (GENITO/STI) Neisseria gonorrhea DNA probe, direct Pap Smear 2. 14 weeks gestation of ([facility]) Z3A.14 POCT urinalysis dipstick manually resulted Return OB/Annual Exam: Patient presents today for a annual exam/routine obstetrics appointment. Patient is currently 10m8xirasygee. Patient states she is doing well but [...] behalf of: ALICIA Knutson documented in this encounterResearch Medical CenterAzivcjbenb16-62-4449 History of Present illness Narrative* Layla Rao NP - 12/11/2024 2:00 PM EDT Reason for Appointment: Patient ID: Sebastian Sacnhez is a 24 y.o. female who presents for Routine Visit Patient presents today for Return OB appointment. MEDICATIONS Current Outpatient Medications Medication Instructions ondansetron ODT (ZOFRAN-ODT) 4 mg, Oral, Every 6 hours PRN promethazine (PHENERGAN) 12.5 mg, Oral, Every 6 hours PRN, Take 1 tablet by mouth every 6 hours as needed for nausea. ALLERGIES No Known Allergies PROBLEMS Active Ambulatory [...] Eyes: Negative. Respiratory: Negative. Cardiovascular: Negative. Gastrointestinal: Positive for nausea and vomiting. Genitourinary: Negative. Musculoskeletal: Negative. Skin: Negative. Neurological: [...] nursing note reviewed. Exam conducted with a sanitary chemist present. Vitals: Estimated body mass index is 30.79 kg/m as calculated from the following: Height as of 07/05/22: 5' 3 . Weight as of this encounter: 173 lb 12.8 oz. BP: 100/58 Patient's last menstrual period was 10/01/2024. ASSESSMENT & PLAN ICD-10-CM 1. 10 weeks gestation of ([facility]) Z3A.10 POCT urinalysis dipstick manually resulted 2. First trimester ([facility]) Z34.91 POCT urinalysis dipstick manually resulted 3. Herpes simplex B00.9 4. History of miscarriage Z87.59 Return OB: Patient presents today for a routine obstetrics appointment. Patient is currently 10w1d . Patient states she is doing well but has complaints of being tired due to current . Patient has verbalizes frequent movement. labor precautions was discussed/given and patient was instructed to perform kick counts three times a day. Patient continues with nausea and vomiting but this improving. Vitamin B 6 sent to pharmacy. Prescription already sent for phenergan and Zofran at last visit. Discussed 6 small meals and protein intake . If no improvement and continued weight loss discussed Zofran pump. Orders Placed This Encounter Procedures POCT urinalysis dipstick manually resulted Follow Up: Patient is to return to office in 4 week for routine OB appointment. Documented by Layla Rao NP on behalf of: Layla Rao NP documented in this encounterResearch Medical CenterAkddeadszk15-06-0598 History of Present illness Narrative* Skylar Gonzáles LPN - 11/15/2024 1:00 PM EDT Reason for Appointment: Patient ID: Sebastian Sanchez [...] urinalysis dipstick manually resulted Positive urine test ([facility]) - US OB transvaginal; Future , unspecified gestational age ([facility]) - Type and screen; Future - ABO/Rh; Future - CBC and differential - Hemoglobin A1c - RPR - Rubella antibody, IgG - Hepatitis B surface antigen - Hepatitis C antibody - HIV-1 and HIV-2 antibodies - Rapid drug screen, urine; Future Encounter for supervision of normal first in first trimester ([facility]) - Rapid drug screen, urine; Future Nausea [...] drink 6-8 glasses of water a day, eatno raw or undercooked meat, and stay away from [facility]. Patient has also been advised to not change litter boxes and eat 6 small meals a day. Patient has been consulted regarding the do's and don'ts ofpregnancy. Patient was given labs and all questions and concerns were answered. Patient was given [place] to have completed at 9 weeks with initial labs. [facility] was [facility] in [facility] [place]. Follow Up: Patient is to return in 4 weeks for routine OB appointment. Follow Up: Patient is to have labs drawn at directed and return to office for initial OB appointment with provider. Patient may call office as needed with any concerns or questions. Nurse Visit Completed by: Skylar Gonzáles LPN documented in this encounterResearch Medical CenterTobxpccile00-83-7004 History of Present illness Narrative* ALICIA Knutson - 06/04/2024 11:30 AM EDT Reason for Appointment: Patient ID: Sebastian Aleman is a 23 y.o. female who presents for Care (Pt present todayfor a 6 week post visit. Pt delivered [...] behalf of: ALICIA Knutson documented in this encounterResearch Medical CenterSolwewgons58-11-2254 History of Present illness Narrative* Aurora Koch LPN - 04/19/2024 10:00 AM EST Reason for Appointment: Patient ID: Sebastian [...] nursing note reviewed. Exam conducted with a sanitary chemist present. Vitals: Estimated body mass index is [...] of: Bakari Proctor DO documented in this encounterResearch Medical CenterGjoyodnbkb93-04-7474 History of Present illness Narrative* ALICIA Knutson - 04/11/2024 2:30 PM EST Reason for Appointment: Patient ID: [...] behalf of: ALICIA Knutson documented in this encounterResearch Medical CenterApwrqyrdxz75-94-3996 History of Present illness Narrative* Kami Moss LPN - 04/03/2024 1:30 PM EST Reason for Appointment: Patient ID: [...] nursing note reviewed. Exam conducted with a sanitary chemist present. Vitals: Estimated body mass index is [...] of: Bakari Proctor DO documented in this encounterResearch Medical CenterIwkedcdoyi66-93-4817 History of Present illness Narrative* Kami Moss LPN - 03/27/2024 2:30 PM EST Reason for Appointment: Patient ID: [...] nursing note reviewed. Exam conducted with a sanitary chemist present. Vitals: Estimated body mass index is [...] of: Bakari Proctor DO documented in this encounterResearch Medical CenterLqqbxzsixj17-30-8539 History of Present illness Narrative* ALICIA Knutson - 02/23/2024 3:20 PM EST Reason for Appointment: Patient ID: [...] behalf of: ALICIA Knutson documented in this encounterResearch Medical CenterVjcgtplkbb18-53-5796 History of Present illness Narrative* Kami Moss, ORTHOPAEDIC NURSE - 02/08/2024 3:10 PM EST Reason for Appointment: Patient ID: [...] nursing note reviewed. Exam conducted with a sanitary chemist present. Vitals: Estimated body mass index is [...] of: Bakari Proctor DO documented in this encounterResearch Medical CenterLksxxlyaoc41-73-3843 History of Present illness Narrative* ALICIA Knutson - 01/11/2024 2:30 PM EDT Reason for Appointment: Patient ID: Sebastian Aleman [...] behalf of: ALICIA Knutson documented in this encounterResearch Medical CenterZgrquvwqdr53-18-3061 History of Present illness Narrative* Steffanie York MD - 01/02/2024 11:00 AM EDT REASON FOR CONSULTATION: Posterior low-lying placenta. HISTORY [...] possible leaky valve. Patient did not a follow- up afterwards. Currently the patient has no complaints. [...] and the other consultants, we search on [employer] and all the available care everywhere epic I did review all the imaging studies of the patient available on EMR, ordered by the primary care physician and the other inside sales consultant HABITS: Patient activity no restrictions, diet [...] would recommend a basic maternal echocardiography in the3rd trimester to be coordinated through her OB [...] patient is in complete care of her manager support. Patient does have ultrasound scheduled with us. Thank you for allowing me to participate in Sebastian Aleman . If there any questions please do nothesitate to contact us. Sincerely, STEFFANIE YORK MD * Sushila Mcneil RN - 01/02/2024 11:00 AM EDT Headache/epigastric pain/blurry vision/swelling? No Cramping/contractions? No Abnormal vaginal discharge? No Spotting/vaginal bleeding? No Loss or gush of fluid like your water may have broken? No Do you have cats at home? Yes Do you change the litter box (reason: risk of toxoplasmosis)? No Genetic testing done this here or other office? CFDNA neg Have you been seen here at [facility] in a previous ? No Recent ER visits or hospitalizations? No Bring blood sugar log or meter with you today? (Please bring them with you for every visit at [facility]) N/A Flu vaccine (Jan-May)? N/A Any concerns that you would like me to mention to the provider today? No documented in this encounterMary Rutan HospitalKoinos Coffee House [id number] History of Present illness Narrative* Kami Moss LPN - 12/14/2023 2:10 PM EDT Reason for Appointment: Patient ID: Sebastian Aleman [...] nursing note reviewed. Exam conducted with a sanitary chemist present. Vitals: Estimated body mass index is [...] partially covers os. Pt being referred to [facility] for evaluation of placenta previa. Pt to be on pelvic rest until further notice. Pt to return in 4 weeks. Documented by Kami Moss LPN on behalf of: Bakari Proctor DO documented in this encounterResearch Medical CenterYzoxkbaydp27-86-2460 History of Present illness Narrative* Skylar Gonzáles, ORTHOPAEDIC NURSE - 11/16/2023 3:30 PM EDT Reason for Appointment: Patient ID: Sebastian Aleman [...] nursing note reviewed. Exam conducted with a sanitary chemist present. Vitals: Estimated body mass index is [...] annual exam/routine obstetrics appointment. Patient is currently 18p6lrxrlxckh. Patient states she is doing well but [...] of: Valentina Cordova PA-C documented in this encounterResearch Medical [id number] Evaluation + Plan note Extracted from:Title:ED NoteAuthor:Rodrigo Berg DO.Date:09/22/23 Asymptomatic bacteriuria dur ing (O99.891: Other specified diseases and conditions complicating ) Bacteriuria (R82.71: Bacteriuria) Nausea and vomiting during (O21.9: Vomiting of , unspecified) Orders: cephalexin, 500 mg = 1 cap(s), Oral, q12hr, X 5 day(s), # 10 cap(s), Refills(s) 0, Pharmacy: [facility]/pharmacy #[id number], 160, cm, 09/22/23 5:34:00 EDT, Height/Length Dosing, 72.4, kg, 09/22/23 5:34:00 EDT, Weight Dosing Lactated Ringers Injection, 1,000 mL, Soln-IV, IV, Once, Stop date 09/22/23 5:38:00 EDT, STAT, Start date 09/22/23 5:38:00 EDT, mL/hr, Infuse over 61, minute(s) promethazine, 12.5 mg = 1 tab(s), Oral, q8hr, PRN as needed for nausea/vomiting, # 12 tab(s), Refills(s) 0, Pharmacy: [facility] #[id number], 160, cm, 09/22/23 5:34:00 EDT, Height/Length [...] Diagnostic Tests Pending * Urine Culture 09/22/23 [facility]24 Hospital Discharge instructions Patient Education 09/22/2023 [...] Follow these instructions at home: Medicines Take rhus-pzo-xdjgybt and prescription medicines only as told by your health care provider. Do not use any prescription, igru-efy-hkiobpa, or herbal medicines for morning sickness without [...] provider. Document Revised: 10/13/2020 Document Reviewed: 09/22/2020 [employer] Patient Education 2022 [employer]. 09/22/2023 07:17:19 Asymptomatic Bacteriuria Asymptomatic Bacteriuria Asymptomatic [...] labor). ?Very low weight ( growth restriction). ?[place] . You are having a procedure that affects the urinary tract. You have had a kidney transplant. If you are diagnosed with this condition, talk with your health care provider about any concerns that you have. Follow these instructions at home: Medicines Take urud-tol-vtanysl and prescription medicines only as told by [...] provider. Document Revised: 10/10/2020 Document Reviewed: 10/10/2020 [employer] Patient Education 2022 [employer]. Follow Up Care 09/22/2023 05:26:40 With:Bakari PROCTOR Address: [address] [place] [address] Business (1) When:09/25/2023 06:28:14 [facility]07-11-2024 NoteED Patient Education Note Obstetrics and [...] these instructions at home: Medicines ? Take szeq-mmb-yssfrrt and prescription medicines only as told by your health care provider. Do not use any prescription, vgbl-eje-flpkxyi, or herbal medicines for morning sickness without [...] provider. Document Revised: 10/13/2020 Document Reviewed: 09/22/2020 [employer] Patient Education ? 2022 [employer]. Urology Asymptomatic Bacteriuria Asymptomatic bacteriuria is the [...] You are an o (more content not included)...[facility] 07-18-2023 Hospital Discharge instructions* Discharge Instructions* [...] sent through Care Everywhere. * Tenosynovitis: Wrist (Croatian) [facility] Discharge instructions Patient Education 07/07/2022 10:03:07 [...] numbers. This can be done either in [place]ian ([place] or metric measurements. Note that charts and online BMI calculators are available to help you find your BMI quickly and easily without having to do these calculations yourself. To calculate your BMI in Croatian ([place] measurements: 1.Measure your weight in pounds [...] Centers for Disease Control and Prevention: www.cdc.gov [place] Heart Association: www.heart.org National Heart, Lung, and Blood [place]: www.nhlbi.nih.gov Summary Body mass index (BMI) is a number that is calculated from a person's weight and height. BMI may help estimate how much of a person's weight is composed of fat. BMI can help identify thosewho may be at higher risk for certain medical problems. BMI can be measured using Croatian measurements or metric measurements. BMI charts are used to identify whether you are underweight, normal weight, overweight, or obese. This information is not intended to replace advice given to you by your health care provider. Make sure you discuss any questions you have with your health care provider. Document Revised: 11/21/2019 Document Reviewed: 09/28/2019 [employer] Patient Education 2022 [employer]. 07/07/2022 10:02:02 Tendinitis, Rpau-qn-Jsep Tendinitis Tendinitis is irritation and swelling (inflammation) [...] only as told by your doctor. Take zrrc-oai-xwveztp and prescription medicines only as told by [...] provider. Document Revised: 11/05/2021 Document Reviewed: 11/05/2021 [employer] Patient Education 2022 [employer]. Follow Up Care 07/07/2022 09:19:19 With:NONE, XXXX Address: [phone] When: Unknown [facility] 05-04-2022 Evaluation + Plan note Diagnostic Tests Pending * Chlamydia/Gonococcus, KESHIA [facility]* Diagnosis De Quervain's tenosynovitis, left- Primary Radial styloid tenosynovitis documented in this encounter [facility] noteNo assessment information available [facility] Work Phone: Evaluation note* Diagnosis Second trimester state, incidental 20 weeks gestation of Partial placenta previa Placenta previa without hemorrhage, unspecified as to episode of care documented in this encounter [facility] HealthcareEvaluation [facility]* Diagnosis Second trimester state, incidental [...] incidental 35 weeks gestation of Mood disorder ([facility]/HCC) Unspecified episodic mood disorder documented in this [...] episode of care [facility] Diagnosis 6 weeks follow-up Spontaneous vaginal delivery Normal delivery Herpes simplex Herpes simplex without mention of complication [facility] Diagnosis Missed menses Positive urine test ([facility]) Missed menses Positive urine test ([facility]) , unspecified gestational age ([facility]) Encounter for supervision of normal first in first trimester ([facility]) Nausea Nausea alone Sinus congestion Other diseases of nasal cavity and sinuses [facility]* Diagnosis Nausea- Primary Nausea alone 10 weeks gestation of ([facility]) First trimester ([facility]) state, incidental Herpes simplex Herpes simplex without mention of complication History of miscarriage Personal history of other genital system and obstetric disorders [facility]* Diagnosis Second trimester ([facility]) state, incidental 14 weeks gestation of ([facility]) documented in this encounter [facility] HealthcareHistory of [...] behalf of: ALICIA Knutson documented in [facility] encounter[facility] CenterHospital [facility] Narrative No data available for this section [facility] No data available for this section [facility]InstructionsNot on filedocumented in this encounter [facility]ructionsNot on filedocumented in this encounter [facility] SystemInstructionsNot on filedocumented in this encounter [facility] SystemProgress note No data available for this section [facility] Reason for referral (narrative) Referred by: Chris Banegas PA-C [facility] Summary Purpose Family History [...] section and content) DATE CREATED AUTHOR 08/12/2021 [facility] DATE CREATED AUTHOR AUTHOR'S ORGANIZ ATION 07/18/2023 [facility] DATE CREATED AUTHOR AUTHOR'S ORGANIZ ATION 09/28/2023 [facility] DATE CREATED AUTHOR AUTHOR'S ORGANIZ ATION 02/05/2024 [facility] DATE CREATED AUTHOR AUTHOR'S ORGANIZ ATION 10/28/2024 [facility] DATE CREATED AUTHOR AUTHOR'S ORGANIZ ATION 11/03/2024 [facility] DATE CREATED AUTHOR AUTHOR'S ORGANIZ ATION 12/17/2024 [facility] EPIC Reason for Visit (unrecogniz ed section and content) ReasonCommentsWrist InjuryPatient arrived to ER with complaints of left wrist injury. 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 had issues with her left wrist prior to incident.ReasonCommentsRoutine VisitReason Commentspartial placenta previaHSVsurveyReasonCommentsPostpartum CarePt present today for a 6 week post visit. Pt delivered on 04/23/2024 vaginal delivery.ReasonCommentsAmenorrhea Ordered Prescriptions (unrec ognized section and content) PrescriptionSigDispensedRefillsStart DateEnd Date naproxen (NAPROSYN) 250 MG tablet Take 2 tablets by mouth 2 times daily (with meals) for 10 days 40 tablet / Scheduled Active and Recently Administ ered Medications (unrecognized section and content) Medication Order/ ketorolac (TORADOL) injection 30 mg (COMPLETED) 30 mg, IntraMUSCular, ONCE, 1 dose, On Tue07/18/23 at 0015, Do not administer for more than 5 days. * 0023 (Given - Provider: Gabriela Mcdermott RN) Care Teams (unrecognized sec tion and content) Team MemberRelationshipSpecialtyStart DateEnd Date Unallocated, Noms Provider, [address] [place] [address] [facility] Team Status: Active Member Role Status Dates NON STAFF Primary Care Provider Active Team Status: Inactive Member Role Status Dates Christopher Ma PA-C Attending Provider Active St art: December 08, 2023 End: December 08, 2023NON STAFFPrimary Care ProviderActiveStart: December 08, 2023 End: December 08, 2023 [...] BE BASED ON THE PRIMARY CLINICAL RECORDS. [employer] [facility]. provides no warranty or guarantee of the accuracy or completeness of information in this document.
--- OUTSIDE RECORDS SUMMARY | 2025-01-08 19:25 | XMS_ITS | Encounter Summary ---
Author Organization [facility] Address [address] [place] [address] Care Team Providers Care Electrical Installation Inspector Name Role Phone Unallocated, Noms Provider Primary Care Provi que Encounter Details DateTypeDepartmentCare Team (Latest Contact Info)Utalvjhguja71/28/2025amboo flowsheet STEPHANY SAPP [address] [place], [id number] Valentina Archer PA [address] [place], [id number] Social History Tobacco UseTypesPacks/DayYears UsedDateSmoking Tobacco: Never Assessed Estimated Date of LqupqecxGhzuoggcAym47/27/2026Based on last menstrual period of 10/01/2024Sex and Gender InformationValueDate RecordedSex Assigned at BirthFemale 06/15/2023 12:49 PM EDTLegal PwmSrwfsi82/15/2023 7:27 PM EDTGender Identity Bblxaf0305/26/2022 7:27 PM EDTSexual OrientationNot on filedocumented as of this encounter Plan of Treatment DateTypeDepartmentCare Team (Latest Contact Info)Flyfoycmtqq50/26/2025 1:40 PM ESTRoutine NOMSherry SAPP [address] [place] [phone] Bakari Proctor DO [address] [place], [id number] documented as of this encounter Goals GoalPatient Goal TypeAssociated ProblemsRecent ProgressPatient-Stated?Author Reminders Care PlanOB RemindersNoOpen Scheduling, Backgrounddocumented as of this encounter Visit Diagnoses Not on filedocumented in this encounter Additional Health Concerns Active ProblemsNoted DateDiagnosed DateOB Jppbrpuzc60/18/2024 documented as of this encounter Care Teams Team MemberRelationshipSpecialtyStart DateEnd Date Unallocated, Noms Provider, [address] [place] [address] PCP - GeneralFamily Medicine09/26/23documented as of this encounter
--- OUTSIDE RECORDS SUMMARY | 2025-01-08 19:25 | XMS_ITS | Encounter Summary ---
Author Organization [facility] Address [address] [place] [address] Care Team Providers Care Motor Adjuster Name Role Phone Unallocated, Noms Provider MD Primary Care Provi que Encounter Details DateTypeDepartmentCare Team (Latest Contact Info)Dnoiquomnez49/23/2025Travel Social History Tobacco UseTypesPacks/DayYears UsedDateSmoking Tobacco: Never Assessed Estimated Date of PjnqbcbyZayvgbghTdj27/27/2026ased on last menstrual period of 10/01/2024Sex and Gender InformationValueDate RecordedSex Assigned at BirthFemale 06/15/2023 12:49 PM EDTLegal AhnKajlhs64/15/2023 7:27 PM EDTGender Identity Mueyry1205/26/2022 7:27 PM EDTSexual OrientationNot on filedocumented as of this encounter Plan of Treatment DateTypeDepartmentCare Team (Latest Contact Info)Ufgozwurivz55/26/2025 1:40 PM ESTRoutine [facility] [place] [facility] [address] [place] [phone] Bakari Proctor DO [address] [place], [place] [id number] documented as of this encounter Goals GoalPatient Goal TypeAssociated ProblemsRecent ProgressPatient-Stated?Author Reminders Care PlanOB RemindersNoOpen Scheduling, Backgrounddocumented as of this encounter Visit Diagnoses Not on filedocumented in this encounter Additional Health Concerns Active ProblemsNoted DateDiagnosed DateOB Yynueqjbe32/18/2024 documented as of this encounter Care Teams Team MemberRelationshipSpecialtyStart DateEnd Date Unallocated, Noms Provider, [address] [place] [address] PCP - GeneralFamily Medicine09/26/23documented as of this encounter
[2025-01-11 13:08] LABS: Age Gdln ACOG Testing Note (.); IGP, rfx Aptima HPV ASCU Note (.)
== END 2025-01-08 19:20 | disposition home or self-care (01) ==
LOC: LAB 19:19
PROVIDERS: Visit Provider Physician Assistant
DX: Z01.419 Encounter for gynecological examination (general) (routine) without abnormal findings (principal)
CPT/HCPCS: 88175